=== PATIENT | female | born 1955 | race Caucasian/White ===

== ENCOUNTER → 2016-10-21 | Day surgery (SDC) | payer MEDICAID ==
[~2016-10-21] MED LIST: AEROCHAMBER1 DEV IH; ALBUTEROL-200 PUFFS/ IH; ALBUTEROL2 PUFFS/17 IN; AMOXIL500 MG PO; ANTI-FUNGAL1% TP; ASPIRIN 81MG TA81 MG PO; ASPIRIN325 M1 PO; AZITHROMYCIN250 MG PO; BACTRIM DS 8001 TAB PO; BREO ELLIPTA 21 EACH; CEFDINIR 300MG300 MG; CIPRO 250MG TA250 MG PO; DARVOCET-N 1001 EACH PO; FEOSOL325 MG; FLEXERIL10 MG PO; FUROSEMIDE 40MG40 M1 PO; GABAPENTIN300 MG PO; HYDROCHLOROTH12.5 M1 PO; HYDROCHLOROTHIA25 M1 PO; LIPITOR40 MG PO; LISINOPRIL2.5 MG PO; LOMOTIL 2.5MG.2.5 MG PO; LOPRESSOR 25MG.25 MG FT; MEDROL 4MG TABLE4 MG PO; MELOXICAM7.5 MG PO; METFORMIN 500M500 M1 PO; METOPROLOL SUCC50 M1 PO; MOBIC7.5 MG PO; MOTRIN 600MG.600 MG PO; MUCINEX DM PO; NAPROSYN 500MG500 MG PO; NAPROSYN500 M1 PO; NITROGLYCERIN0.4 MG SL; NITROQUICK0.4 MG SL; OXYBUTYNIN5 MG PO; OXYGEN XX; PHENERGAN 25MG.25 M1 PO; PLAVIX75 MG PO; POTASSIUM CHLO20 ME2 PO; PRILOSEC OTC20 MG PO; PYRIDIUM 200MG200 MG PO; ROBAXIN-750750 MG PO; SOTALOL HCL80 MG PO; SYMBICORT1 AER IH; TRAMADOL 50MG T50 MG PO; ULTRAM50 MG PO; VALIUM 5MG TABLE5 MG PO; VIBRAMYCIN HYC100 MG PO; VOLTAREN75 MG PO; VYTORIN 10 MG-41 TAB PO; XARELTO20 MG; ZESTRIL 5MG TABL5 MG; ZITHROMAX Z-PA250 M2 PO; ZOFRAN ODT4 MG PO; ZOFRAN4 MG PO
[2016-10-21 09:11] VITALS: BP 129/72
[2016-10-21 10:28] LABS: HEMOGLOBIN 9.9 g/dL (12.2-16.2); LYMPH # 6.2 K/mm3 (0.7-4.5)
[2016-10-21 10:39] LABS: BUN 10 mg/dL (7-18)
[2016-10-21 10:40] LABS: GFR (ESTIMATED) 73 ML/MIN (59-)
[2016-10-21 11:10] LABS: NEUTROPHILS 49 % (42-76)
== END ==
LOC: SDC 08:43
PROVIDERS: Pathology Anatomic Pathology & Clinical Pathology
DX: C92.10 Chronic myeloid leukemia, BCR/ABL-positive, not having achieved remission (principal); Z53.8 Procedure and treatment not carried out for other reasons

== ENCOUNTER 2016-11-22 16:46 | Emergency (ER) | payer MEDICAID ==
[~2016-11-22] VITALS: Ht 162.6 cm; Wt 90.7 kg
--- NOTE | 2016-11-22 17:21 | Emergency Room Report ---
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 N Clinical Suspician of Infection? N Mental Status: 1 - Regular (Normal Baseline) Sepsis Risk:Low Sepsis Risk Have you (or family members/close friends) recently traveled outside the [place]? N If Yes, where/when: Have you had exposure to infectious disease within the past month? N TB? Other? Specify: Patient states she feels weak, just not well, "I feel dehydrated", no vomiting or chest pain. Recent dx myeloid leukemia, pt of Dr. Joseph. No SOB. No vomiting. Uses home oxygen PRN. No fever. Feels a little bit hoarse. Having some urinary urgency and frequency. No cough. Takes iron supplement for anemia. No new changes in stool. Reports chronic ankle edema, no new edema, no calf pain or claudication. PCP is Dr. Weinberg. ALLERGIES Coded Allergies: Penicillins (Intermediate, I-RASH 10/20/16) acetaminophen (Intermediate, I-RASH 10/20/16) adhesive tape (Intermediate, I-RASH 10/20/16) digoxin (Intermediate, NA-NAUSEA/VOMITING 10/20/16) hydrocortisone (Intermediate, I-RASH 10/20/16) ciprofloxacin (Mild, NA-NAUSEA/VOMITING 10/20/16) milk (Mild, DIARRHEA 10/20/16) Home Medications Active Scripts Tramadol Hcl (Ultram 50MG) 50 MG PO QID #15 TAB Prov: 04/20/15 Albuterol (Albuterol Inhaler 17GM) 2 PUFFS IN Q4HP #1 INH Prov: 03/06/12 Reported Medications NITROGLYCERIN (Nitrostat) 0.4 MG SL [id number] Device (Oxygen (Concentrator)) 1 UNIT XX UD OXYBUTYNIN CHLORIDE (Oxybutynin 5MG Tab) 5 MG PO BID Atorvastatin Calcium (Atorvastatin) 40 MG PO QHS Device (Oxygen (Concentrator)) 1 UNIT XX UD Diazepam (Valium 5MG) 5 MG PO TID ASPIRIN (Aspirin) 81 MG PO DAILY Fluticasone/Vilanterol (Breo Ellipta 200-25 Mcg INH) Ferrous Sulfate (Feosol) Lisinopril (Zestril 5MG Tablet) Rivaroxaban (Xarelto) CEFDINIR (Cefdinir) Metformin HCl (Metformin) 500 MG PO BID #60 BUDESONIDE/FORMOTEROL FUMARATE (Symbicort 80-4.5 Mcg Inhaler) 1 PUFF IH BID #10 Sotalol Hcl (Sotalol) 80 MG PO BID #60 History Medical History General CAD? No Angina: Yes PR: Yes Hypertension? Yes Hyperlipidemia? Yes CHF? Yes DVT? No PE? No COPD? Yes Asthma? No Anemia? No GERD? No Gastric ulcers? No GI Bleed? No Hernia? Yes Thyroid Problems? No Hypothyroidism? No CVA? Yes Seizures? Yes Diabetes? Yes Insulin Dependent: No Insulin Pump: No Home FSBS? No Renal Insuffiency? No End Stage Renal Disease? No UTI? Yes Stones? No BPH? No GB Disease: Yes Nephritic Syndrome? No Asplenia? No Hepatitis? No Sickle Cell Disease? No Arthritis? Yes Migraines? No Cataracts? No Glaucoma? No MRSA? No HIV? No TB? No Anxiety? No Depression? No Cancer? No More? Yes Additional hx: cml Immunization Hx DT/Tetanus UNKNOWN Flu 01/10/08 Pneumonia 01/10/08 Surgical Hx Previous Surgery?Y GallbladdER FX L FOOT TONSILLECTOMY KARRI,BSO COLONOSCOPY X 3 BLADDER REPAIR Appendix CARDIAC STENT X 1 CARDIAC CATH 2- THAT WAS OKAY POLYP REMOVED FROM COLON Family History Family Hx Diabetes Yes CAD Yes Hypertension Yes Hyperlipidemia No Cancer Yes TB No Social History Smoking Hx Smoker: Current Every Day Smoker Tobacco: Yes Type Cigarettes Packs/day < 1 Pack Alcohol Alcohol: No Review of Systems All Other Systems Reviewed and Negative Constitutional see HPI Physical Exam Vital Signs Vital Signs Date Time Temp Pulse Resp B/P Pulse O2 O2 Flow FiO2 Ox Delivery Rate 11/22 1913 54 16 161/78 98 11/22 1809 57 16 171/84 96 11/22 1649 97.9 59 16 170/81 98 General Appearance normal appearance, WD/WN, no apparent distress Eye Exam - bilateral eye normal exam, bilateral eye PERRL, bilateral eye EOMI Ear, Nose, Throat hearing grossly normal, normal ENT inspection, normal pharynx (OP wet no erythema) Neck normal inspection, non-tender, supple, full range of motion (no meningismus ) Respiratory Status Yes: trachea midline, chest symmetrical, non tender chest. No: respiratory distress, tender on palpation, use of accessory muscles, pain on inspiration, pain on expiration, productive cough, non productive cough. Lung Sounds bilateral: normal breath sounds, lungs clear, decreased breath sounds (hx COPD). 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 No Results/Orders Laboratory Tests 11/22/16 1730: Sodium 141, Potassium 4.0, Chloride 106, Carbon Dioxide 29, BUN 13, Creatinine 0.8, Estimated Creat Clear 107, Estimated GFR (MDRD) 73, Glucose 94, Calcium 8.8 , Total Bilirubin 0.3, AST 13 L, ALT 14, Alkaline Phosphatase 122 H, Troponin I < 0.02, Total Protein 6.9, Albumin 3.5, Globulin 3.4 H, Albumin/Globulin Ratio 1.0 L, WBC 53.1 *H, RBC 4.01 L, Hgb 9.8 L, Hct 32.2 L, MCV 80.2 L, RDW 15.3, Plt Count 335, MPV 8.0, Gran % 82.1 H, Gran # 43.6 H, Total Counted Pending, Lymphocytes % 10.9, Monocytes % 4.2, Eosinophils % 2.9, Basophils % 4.2 H, Neutrophils Pending, Lymphocytes (Manual) Pending, Lymphocytes # 5.8 H, Monocytes # 2.3 H, Eosinophils # 1.5 H, Basophils # 2.2 H, Platelet Estimate Pending, PUBS MCHC 30.6 L, MCH 24.5 L 11/22/16 1645: Urine Color YELLOW, Urine Appearance CLEAR, Urine pH 7.0, Ur Specific Grant <= 1.005, Urine Protein NEGATIVE, Urine Ketones NEGATIVE, Urine Blood NEGATIVE, Urine Nitrate NEGATIVE, Urine Bilirubin NEGATIVE, Urine Urobilinogen 0.2, Ur Leukocyte Esterase 1+ H, Urine Glucose NEGATIVE Orders Procedure Date/time Status CULTURE, THROAT 11/22 1850 Active DIFFERENTIAL-WBC 11/22 1730 Active ELECTROCARDIOGRAM REQUEST 11/22 170 Active CHEST(2 VIEWS-NOT PORTABLE) 11/22 170 Active TROPONIN I 11/22 170 Complete STREP SCREEN THROAT 11/22 170 Complete CBC WITH AUTO DIFF 11/22 170 Active CHEM 12 PROFILE 11/22 170 Complete URINALYSIS/COMPLETE 11/22 1653 Complete 12 LEAD EKG-ANA MARIA (INITIAL) 11/22 UNK Active CM/EKG CM/EKG EKG rate, NSR, rhythm, no evid. of ischemic chgs, no ectopy, normal QRS, normal KS, normal EKG Departure Departure Time of Disposition 1918 Disposition DC Home or Self Care(routine) Clinical Impression Primary Impression: Malaise Secondary Impressions: UTI (urinary tract infection) Qualifiers: Urinary tract infection type: acute cystitis Hematuria presence: without hematuria Qualified Code: N30.00 - Acute cystitis without hematuria Condition STABLE Referrals Ramin Weinberg MD (Family) Patient Instructions Urinary Tract Infection Additional Instructions Macrobid, see Dr. Weinberg in one week for recheck, sooner if not improving Discharge Counseling Counseled pt/family regarding diagnosis, test results, medications/RX, home care, follow up needs Prescriptions Current Visit Scripts NITROFURANTOIN MONOHYD/M-CRYST (Macrobid 100 MG Capsule) 100 MG PO BID #14 CAP ED Critical Care Critical Care No at 1923
[2016-11-22 17:53] LABS: HEMOGLOBIN 9.8 g/dL (12.2-16.2); LYMPH # 5.8 K/mm3 (0.7-4.5); LYMPH % 10.9 % (10-50.0)
[2016-11-22 18:03] LABS: BUN 13 mg/dL (7-18)
[2016-11-22 18:10] LABS: GFR (ESTIMATED) 73 ML/MIN (59-)
[2016-11-22 19:11] LABS: URINE BILIRUBIN - DIPSTICK NEGATIVE (NEG); URINE BLOOD NEGATIVE (NEG)
[2016-11-22 19:36] LABS: NEUTROPHILS 67 % (42-76)
[2016-11-22 19:54] VITALS: BP 161/78
--- NOTE | 2016-11-22 23:18 | RADIOLOGY REPORT PS360 ---
CHEST(2 VIEWS-NOT PORTABLE) HISTORY: malaise ORDERING PHYSICIAN: Celina Us MD PATIENT AGE: 61 years COMPARISON: 06/10/2016 FINDINGS: There is mild cardiomegaly without failure. Calcified granulomas present in the left midlung. Lungs otherwise clear. No acute bony anomalies. IMPRESSION: Mild cardiomegaly otherwise negative
--- OUTSIDE RECORDS SUMMARY | 2016-12-15 05:28 | External Medical Summary Rpt ---
Author Author [facility] Organization [facility] Address Unknown Phone Unavailable Care Team Providers Care Community Midwife Name Role Phone BIENVENIDO STRICKLAND PCP [phone] Encounter [facility] [id number] Date(s): 06/16/16 - 07/07/16 [facility] [address] [place] [address]- Discharge Disposition: OP Self Care or Home Attending Physician: MAGALI RAMIREZ MD-CAR Admitting Physician: MAGALI RAMIREZ MD-CAR Referring Physician: MAGALI RAMIREZ MD-CAR Reason for Visit PAROXYSMAL ATRIAL FIBRILLATION Vital Signs Most recent 1 2 3 to oldest [Reference Range]: Temperature Temporal artery Source scanning (07/07/16 7:16 AM) Temperature Fahrenheit Mode (07/07/16 7:16 AM) Temperature, 98.0 Deg F Fahrenheit (07/07/16 7:16 AM) [96.8-99.7 Deg F] Clinical 36.7 Deg C Temperature, (07/07/16 7:16 AM) C Heart Rate 64 bpm 66 bpm 68 bpm Monitored (07/07/16 10:30 AM) (07/07/16 10:15 AM) (07/07/16 10:00 AM) [60-100 bpm] Respiratory 24 Breaths/Min 37 Breaths/Min 32 Breaths/Min Rate [14-20 *HI* *HI* *HI* Breaths/Min] (07/07/16 10:30 AM) (07/07/16 10:15 AM) (07/07/16 10:00 AM) Blood 110/69 mmHg 110/69 mmHg 114/73 mmHg Pressure (07/07/16 10:30 AM) (07/07/16 10:15 AM) (07/07/16 10:00 AM) [90-140/60-9 0 mmHg] Mean 92 92 101 Arterial (07/07/16 10:30 AM) (07/07/16 10:15 AM) (07/07/16 10:00 AM) Pressure (MAP)-BMDI Oxygen 100 % 100 % 100 % Saturation (07/07/16 10:30 AM) (07/07/16 10:15 AM) (07/07/16 10:00 AM) [94-100 %] Height Measured Source (07/07/16 7:12 AM) Height Entry Sharkey Format (07/07/16 7:12 AM) Height/Lengt 5 ft h, DUTCH (07/07/16 7:12 AM) (ft) Height/Lengt 4 Inch h DUTCH (07/07/16 7:12 AM) CLINICALHEIG 162.56 cm HT (07/07/16 7:12 AM) Weight Standing scale Source (07/07/16 7:12 AM) Weight Entry Sharkey Format (07/07/16 7:12 AM) Weight 217 lb Ukrainian lb (07/07/16 7:12 AM) CLINICALWEIG 98.64 kg HT (07/07/16 7:12 AM) Body Surface 2.03 m2 Area (BSA) (07/07/16 7:12 AM) Body Mass 37.3 kg/m2 Index *HI* [19.0-24.0 (07/07/16 7:12 AM) kg/m2] [place] Body 54 kg Weight (07/07/16 7:12 AM) Problem List Condition Effective Status Health Informant Dates Status Acute Resolved inferior myocardial infarction(C onfirmed) AF (atrial Active patient fibrillation )(Confirmed) Anemia(Confi Active patient rmed) Angina(Confi Active patient rmed) angina(Confi Active rmed) Arthritis(Co Active patient nfirmed) Atrial Active patient tachycardia( Confirmed) Back Active patient pain(Confirm ed) Bronchitis(C Active patient onfirmed) COPD(Confirm Active ed) CVA Resolved (cerebral vascular accident)(Co nfirmed) Diabetes Active patient mellitus type II(Confirmed ) Falls(Confir Active med) Ankle Resolved patient fracture, left(Confirm ed) Stress Active incontinence (Confirmed) GERD - Active patient Gastro-esoph ageal reflux disease(Conf irmed) History of Active IBS(Confirme d) History of Resolved patient tonsillectom y(Confirmed) Heart Active patient failure(Conf irmed) Heart Active murmur(Confi rmed) Elevated Active troponin I level(Confir med) Hx of Resolved patient cholecystect aron(Confirme d) HLD Active (hyperlipide nanette)(Confirm ed) HTN Active (hypertensio n)(Confirmed ) Incontinence Active patient (Confirmed) Irritable Active patient bowel syndrome(Con firmed) COPD, Active patient moderate(Con firmed) Neck Active pain(Confirm ed) Peripheral Active patient vascular disease(Conf irmed) Restless Active legs syndrome (RLS)(Confir med) Apnea, Active sleep(Confir med)1 Stented Active patient coronary artery(Confi rmed) Syncope(Conf Active irmed) 1no cpap Allergies, Adverse Reactions, Alerts Substance Reaction Severity Status Augmentin rash Active ciprofloxacin hives Active digoxin Sensitivity Active Yellow Vision Milk Products diarrhea Active vomit Tape hives Active Tylenol Extra hives Active Strength Medications albuterol (Ventolin HFA 90 mcg/inh inhalation aerosol)2 Puff, Inhalation, Four Times A Day, Refills: 0 aspirin (aspirin 81 mg oral tablet, chewable) 1 Tab, Oral, Every Day, Refills: 11 Ordering provider: YUE MENDOZA APRN atorvastatin (Lipitor 80 mg oral tablet) 1 Tab, Oral, Every Day, Refills: 11 Ordering provider: YUE MENDOZA APRN budesonide-formoterol (Symbicort 80 mcg-4.5 mcg/inh inhalation aerosol)2 Puff, Inhalation, Two Times A Day, Refills: 0 diazepam (diazepam 5 mg oral tablet)1 Tab, Oral, Three Times A Day, As Needed, for anxiety, Refills: 0 furosemide (furosemide 40 mg oral tablet) Oral, Every Day, Refills: 0 gabapentin (gabapentin 300 mg oral capsule) 1 Cap, Oral, Two Times A Day, Refills: 0 lisinopril (lisinopril 2.5 mg oral tablet) 2 Tab, Oral, Every Day, Refills: 0 metformin (metformin 500 mg oral tablet) 1 Tab, Oral, Two Times A Day, Refills: 0 nitroglycerin (Nitrostat 0.4 mg sublingual tablet)1 Tab, SubLINgual , every 5 minutes, As Needed, Chest Pain, Refills: 3Ordering provider: YUE MENDOZA APRN omeprazole (PriLOSEC OTC 20 mg oral delayed release tablet)1 Tab, Oral, Every Day, Refills: 0 oxybutynin (oxybutynin 5 mg oral tablet)1 Tab, Oral, Two Times A Day, As Needed, for urinary discomfort, Refills: 0 potassium chloride (Klor-Con M20) 20 mEq, Oral, Every Day, Refills: 0 rivaroxaban (Xarelto 20 mg oral tablet) 1 Tab, Oral, Every Evening, Refills: 0 sotalol (sotalol 80 mg oral tablet) 1 Tab, Oral, Two Times A Day, Refills: 0 tramadol (tramadol 50 mg oral tablet) 1 Tab, Oral, Three Times A Day, Refills: 0 Results GENERAL CHEMISTRY Most recent 1 to oldest [Reference Range]: Sodium Level 141 mmol/L [136-146 (07/07/16 7:05 AM) mmol/L] Potassium 3.6 mmol/L Level (07/07/16 7:05 AM) [3.5-5.1 mmol/L] Chloride 108 mmol/L Level (07/07/16 7:05 AM) [102-112 mmol/L] Carbon 26 mmol/L Dioxide (07/07/16 7:05 AM) Level [21-32 mmol/L] Anion Gap 11 [9-20] (07/07/16 7:05 AM) Glucose 107 mg/dL Level *HI* [74-106 (07/07/16 7:05 AM) mg/dL] Blood Urea 12 mg/dL Nitrogen (07/07/16 7:05 AM) [7-22 mg/dL] Creatinine 0.80 mg/dL Level (07/07/16 7:05 AM) [0.55-1.02 mg/dL] eGFR 89 mL/min/1.73m2 [>=60 (07/07/16 7:05 AM) mL/min/1.73m 2] eGFR 73 mL/min/1.73m2 NonAfrican (07/07/16 7:05 AM) [>=60 mL/min/1.73m 2] Bun/Creatini 15.0 ne (07/07/16 7:05 AM) [8.0-20.0] Calcium 8.4 mg/dL Level *LOW* [8.5-10.1 (07/07/16 7:05 AM) mg/dL] Protein 6.6 Gram/dL Total (07/07/16 7:05 AM) [6.4-8.2 Gram/dL] Albumin 3.5 Gram/dL Level (07/07/16 7:05 AM) [3.4-5.0 Gram/dL] Globulin 3.1 Gram/dL [1.5-4.5 (07/07/16 7:05 AM) Gram/dL] A/G Ratio 1.1 [1.1-2.5] (07/07/16 7:05 AM) Bilirubin 0.2 mg/dL Total (07/07/16 7:05 AM) [0.2-1.3 mg/dL] Alk Phos 125 Units/Liter [27-136 (07/07/16 7:05 AM) Units/Liter] AST [5-37 8 Units/Liter Units/Liter] (07/07/16 7:05 AM) ALT [12-78 16 Units/Liter Units/Liter] (07/07/16 7:05 AM) Magnesium 2.0 mg/dL Level (07/07/16 7:05 AM) [1.5-2.4 mg/dL] CARDIAC SPECIFIC MARKERS Most recent 1 to oldest [Reference Range]: ProBNP 376 pg/mL [0-125 *HI* pg/mL] (07/07/16 7:05 AM) HEMATOLOGY Most recent 1 to oldest [Reference Range]: WBC 25.7 K/uL [4.0-10.0 *HI* K/uL] (07/07/16 7:05 AM) RBC 4.30 Million/uL [3.93-5.22 (07/07/16 7:05 AM) Million/uL] Hgb 10.3 g/dL [11.2-15.7 *LOW* g/dL] (07/07/16 7:05 AM) Hct 34.4 % [34.1-44.9 (07/07/16 7:05 AM) %] MCV 80.0 fL [79.0-94.8 (07/07/16 7:05 AM) fL] MCH 24.0 pg [25.6-32.2 *LOW* pg] (07/07/16 7:05 AM) MCHC 29.9 Gram/dL [32.2-36.5 *LOW* Gram/dL] (07/07/16 7:05 AM) Platelet 268 K/uL Count (07/07/16 7:05 AM) [163-369 K/uL] MPV 11.3 fL [9.4-12.4 (07/07/16 7:05 AM) fL] RDW 14.8 % [11.6-14.4 *HI* %] (07/07/16 7:05 AM) Slide Review No (07/07/16 7:05 AM) ENDOCRINOLOGY Most recent 1 to oldest [Reference Range]: TSH 0.023 mcInt Units/mL [0.358-3.740 *LOW* mcInt (07/07/16 7:05 AM) Units/mL] Immunizations No data available for this section Procedures Procedure Date Related Body Site Diagnosis left ankle fracture repair Social History Social History Response Type Smoking Status Current every day smoker Assessment and Plan No data available for this section Hospital Discharge Instructions Patient EducationElectrical Cardioversion, Care After General Anesthesia, Adult, Care After
--- OUTSIDE RECORDS SUMMARY | 2016-12-15 05:28 | External Medical Summary Rpt ---
Author Author [facility] Organization [facility] Address Unknown Phone Unavailable Care Team Providers Care Meal Cook Name Role Phone BIENVENIDO STRICKLAND PCP [phone] Encounter [facility] [id number] Date(s): 06/16/16 - 07/07/16 [facility] [address] [place] [address]- Discharge Disposition: OP Self Care or Home [...] Measured Source (07/07/16 7:12 AM) Height Entry Howard Format (07/07/16 7:12 AM) Height/Lengt 5 ft h, BRITISH (07/07/16 7:12 AM) (ft) Height/Lengt 4 Inch h BRITISH (07/07/16 7:12 AM) CLINICALHEIG 162.56 cm HT (07/07/16 7:12 AM) Weight Standing scale Source (07/07/16 7:12 AM) Weight Entry Howard Format (07/07/16 7:12 AM) Weight 217 lb Kiswahili lb (07/07/16 7:12 AM) CLINICALWEIG 98.64 kg HT (07/07/16 7:12 AM) Body Surface 2.03 m2 Area (BSA) (07/07/16 7:12 AM) Body Mass 37.3 kg/m2 Index *HI* [19.0-24.0 (07/07/16 7:12 AM) kg/m2] [place] Body 54 kg Weight (07/07/16 7:12 AM) [...]
--- OUTSIDE RECORDS SUMMARY | 2016-12-15 05:48 | External Medical Summary Rpt ---
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 Drug Allergy Food Allergy Propensity to adverse reactions to drug Adverse Reaction to Substance Substance Reaction Severity TAPE I-RASH Intermediate Amoxicillin I-RASH Intermediate Acetaminophen I-RASH Intermediate Hydrocortisone I-RASH Intermediate Ciprofloxacin I-RASH Intermediate MILK 'DOESN'T AGREE WITH Unknown ME' TAPE I-RASH Intermediate Clavulanic Acid I-RASH Intermediate MILK 'DOESN'T AGREE WITH Unknown ME' Digoxin 'MAKES HEART HURT Intermediate WORSE'-speeds up heart rate Clinical Alert Notifications Alert Asthma: ICS non-compliance with h/o of SA beta agonist Asthma: no influenza vaccine in the last 365 days Diabetes: no A1C in the last 6 months Diabetes: no eye exam in the last 365 days Diabetes: no influenza vaccine in the last 365 days Diabetes: no lipid panel in the last 365 days Diabetes: no urine protein screening in the last 365 days Medications Na ND Rx Da Fi Fi Am Da Di Ph RX Ph St me C No te ll ll ou ys ag ar # ys at rm s nt no ma ic us Or Da si cy ia de te s n re d IM 00 09 10 30 30 00 CL Ac AT 09 -1 -0 .0 00 IN ti IN 37 3- 6- 00 00 IC ve IB 63 20 20 44 05 17 17 21 PH ME 6 67 AR SY MA LA CY TE 40 0 MG TA B FE 57 09 10 40 20 00 CL Ac RR 66 -0 -0 .0 00 IN ti OU 40 8- 6- 00 00 IC ve S 07 20 20 44 TURNER 11 17 17 20 PH LF 0 05 AR AT MA E CY 32 5 MG TA BL ET ME 67 09 10 60 30 00 CL Ac TF 87 -1 -0 .0 00 IN ti OR 70 1- 6- 00 00 IC ve MO 56 20 20 43 N 11 17 17 47 PH HC 0 58 AR L MA 50 CY 0 MG TA BL ET LI 68 09 10 30 30 00 CL Ac SI 00 -1 -0 .0 00 IN ti NO 10 1- 6- 00 00 IC ve KS 26 20 20 43 IL 70 17 17 54 PH 5 8 78 AR MA MG CY TA BL ET AT 60 09 10 30 30 00 CL Ac OR 50 -1 -0 .0 00 IN ti VA 52 1- 6- [address] 67 20 20 43 AT 10 17 17 49 PH IN 8 99 AR MA 80 CY MG TA BL ET SO 00 09 10 60 30 00 CL Ac TA 09 -1 -0 .0 00 IN ti LO 31 1- 6- 00 00 IC ve L 06 20 20 43 80 10 17 17 21 PH 1 62 AR MG MA CY TA BL ET XA 50 09 10 30 30 00 CL Ac RE 45 -1 -0 .0 00 IN ti LT 80 1- 6- 00 00 IC ve O 57 20 20 42 20 93 17 17 78 PH 0 87 AR MG MA CY TA BL ET VE 00 09 10 18 25 00 CL Ac NT 17 -1 -0 .0 00 IN ti OL 30 1- 6- 00 00 IC ve IN 68 20 20 43 22 17 17 20 PH HF 0 65 AR A MA 90 CY MC G IN CHO LE R OM 68 09 10 60 30 00 CL Ac EP 46 -1 -0 .0 00 IN ti RA 20 1- 6- 00 00 IC ve ZO 39 20 20 42 LE 60 17 17 97 PH [address] MA CY 20 MG CA PS UL E CH 37 09 10 30 30 00 CL Ac IL 20 -1 -0 .0 00 IN ti D 50 1- 6- 00 00 IC ve 46 20 20 41 PI 76 17 17 56 PH RI 8 75 AR N MA 81 CY MG CH EW TA B PO 68 09 10 30 30 00 CL Ac TA 00 -1 -0 .0 00 IN ti SS 10 1- 6- 00 00 IC ve IU 23 20 20 43 M 50 17 17 47 PH CL 8 59 AR MA ER CY 20 ME Q TA BL ET FU 69 09 10 60 30 00 CL Ac RO 31 -1 -0 .0 00 IN ti SE 50 1- 6- 00 00 IC ve MO 11 20 20 43 DE 71 17 17 47 PH 0 57 AR 40 MA CY MG TA BL ET OX 00 09 10 60 30 00 CL Ac YB 60 -1 -0 .0 00 IN ti UT 34 1- 6- 00 00 IC ve YN 97 20 20 43 IN 52 17 17 47 PH 5 1 60 AR MA MG CY TA BL ET BR 00 09 10 60 30 00 CL Ac EO 17 -1 -0 .0 00 IN ti 30 1- 6- 00 00 IC ve EL 85 20 20 43 LI 91 17 17 28 PH PT 0 44 AR A MA 10 CY 0- 25 MC G IN H DI 51 09 09 90 30 00 CL Ac AZ 86 -0 -2 .0 00 IN ti EP 20 5- 9- 00 00 IC ve AM 06 20 20 43 5 31 17 17 75 PH 0 57 AR MG MA CY TA BL ET GA 69 08 09 30 30 00 CL Ac BA 09 -1 -1 .0 00 IN ti PE 70 9- 5- 00 00 IC ve NT 81 20 20 42 IN 41 17 17 65 PH 2 37 AR 30 MA 0 CY MG CA PS UL E VE 00 08 09 18 25 00 CL Ac NT 17 -1 -1 .0 00 IN ti OL 30 7- 5- 00 00 IC ve IN 68 20 20 43 22 17 17 20 PH HF 0 65 AR A MA 90 CY MC G IN CHO LE R OM 60 08 09 60 30 00 CL Ac EP 50 -1 -1 .0 00 IN ti RA 50 7- 5- 00 00 IC ve ZO 06 20 20 42 LE 50 17 17 97 PH [address] MA CY 20 MG CA PS UL E OX 50 08 09 60 30 00 CL Ac YB 11 -1 -0 .0 00 IN ti UT 10 6- 8- 00 00 IC ve YN 45 20 20 43 IN 60 17 17 47 PH 5 2 60 AR MA MG CY TA BL ET XA 50 08 09 30 30 00 CL Ac RE 45 -1 -0 .0 00 IN ti LT 80 6- 8- 00 00 IC ve O 57 20 20 42 20 93 17 17 78 PH 0 87 AR MG MA CY TA BL ET CH 37 08 09 30 30 00 CL Ac IL 20 -1 -0 .0 00 IN ti D 50 6- 8- 00 00 IC ve 46 20 20 41 PI 76 17 17 56 PH RI 8 75 AR N MA 81 CY MG CH EW TA B FU 69 08 09 60 30 00 CL Ac RO 31 -1 -0 .0 00 IN ti SE 50 6- 8- 00 00 IC ve MO 11 20 20 43 DE 71 17 17 47 PH 0 57 AR 40 MA CY MG TA BL ET FE 57 08 09 40 20 00 CL Ac RR 66 -1 -0 .0 00 IN ti OU 40 6- 8- 00 00 IC ve S 07 20 20 42 TURNER 11 17 17 42 PH LF 0 66 AR AT MA E CY 32 5 MG TA BL ET PO 00 08 09 30 30 00 CL Ac TA 78 -1 -0 .0 00 IN ti SS 15 6- 8- 00 00 IC ve IU 72 20 20 43 M 01 17 17 47 PH CL 0 59 AR MA ER CY 20 ME Q TA BL ET SO 00 08 09 60 30 00 CL Ac TA 09 -1 -0 .0 00 IN ti LO 31 6- 8- 00 00 IC ve L 06 20 20 43 80 10 17 17 21 PH 1 62 AR MG MA CY TA BL ET BR 00 08 09 60 30 00 CL Ac EO 17 -1 -0 .0 00 IN ti 30 6- 8- 00 00 IC ve EL 85 20 20 43 LI 91 17 17 28 PH PT 0 44 AR A MA 10 CY 0- 25 MC G IN H AT 55 08 09 30 30 00 CL Ac OR 11 -1 -0 .0 00 IN ti VA 10 6- 8- [address] 12 20 20 43 AT 40 17 17 49 PH IN 5 99 AR MA 80 CY MG TA BL ET LI 68 08 09 30 30 00 CL Ac SI 18 -1 -0 .0 00 IN ti NO 00 6- 8- 00 00 IC ve KS 51 20 20 43 IL 30 17 17 54 PH 5 3 78 AR MA MG CY TA BL ET ME 53 08 09 60 30 00 CL Ac TF 74 -1 -0 .0 00 IN ti OR 60 6- 8- 00 00 IC ve MO 21 20 20 43 N 81 17 17 47 PH HC 0 58 AR L MA 50 CY 0 MG TA BL ET DI 51 08 09 90 30 00 CL Ac AZ 86 -0 -0 .0 00 IN ti EP 20 3- 1- 00 00 IC ve AM 06 20 20 43 5 31 17 17 75 PH 0 57 AR MG MA CY TA BL ET GA 69 07 08 30 30 00 CL Ac BA 09 -2 -1 .0 00 IN ti PE 70 2- 8- 00 00 IC ve NT 81 20 20 42 IN 41 17 17 65 PH 2 37 AR 30 MA 0 CY MG CA PS UL E TR 00 07 08 45 10 00 CL Ac IA 60 -2 -1 .0 00 IN ti MC 37 0- 8- 00 00 IC ve IN 86 20 20 43 OL 17 17 17 49 PH ON 4 90 AR E MA 0. CY 02 5% CR EA M CH 37 07 08 30 30 00 CL Ac IL 20 -2 -1 .0 00 IN ti D 50 0- 8- 00 00 IC ve 46 20 20 41 PI 76 17 17 56 PH RI 8 75 AR N MA 81 CY MG CH EW TA B OX 00 07 08 60 30 00 CL Ac YB 83 -2 -1 .0 00 IN ti UT 20 0- 8- 00 00 IC ve YN 03 20 20 43 IN 81 17 17 47 PH 5 0 60 AR MA MG CY TA BL ET PO 00 07 08 30 30 00 CL Ac TA 78 -2 -1 .0 00 IN ti SS 15 0- 8- 00 00 IC ve IU 72 20 20 43 M 01 17 17 47 PH CL 0 59 AR MA ER CY 20 ME Q TA BL ET ME 53 07 08 60 30 00 CL Ac TF 74 -2 -1 .0 00 IN ti OR 60 0- 8- 00 00 IC ve MO 21 20 20 43 N 81 17 17 47 PH HC 0 58 AR L MA 50 CY 0 MG TA BL ET FU 00 07 08 60 30 00 CL Ac RO 37 -2 -1 .0 00 IN ti SE 80 0- 8- 00 00 IC ve MO 21 20 20 43 DE 61 17 17 47 PH 0 57 AR 40 MA CY MG TA BL ET FE 57 07 08 60 30 00 CL Ac RR 66 -2 -1 .0 00 IN ti OU 40 0- 8- 00 00 IC ve S 07 20 20 42 TURNER 11 17 17 42 PH LF 0 66 AR AT MA E CY 32 5 MG TA BL ET SO 00 07 08 60 30 00 CL Ac TA 09 -2 -1 .0 00 IN ti LO 31 0- 8- 00 00 IC ve L 06 20 20 43 80 10 17 17 21 PH 1 62 AR MG MA CY TA BL ET XA 50 07 08 30 30 00 CL Ac RE 45 -2 -1 .0 00 IN ti LT 80 0- 8- 00 00 IC ve O 57 20 20 42 20 93 17 17 78 PH 0 87 AR MG MA CY TA BL ET OM 60 07 08 60 30 00 CL Ac EP 50 -2 -1 .0 00 IN ti RA 50 0- 8- 00 00 IC ve ZO 06 20 20 42 LE 50 17 17 97 PH [address] MA CY 20 MG CA PS UL E LI 68 07 08 30 30 00 CL Ac SI 18 -2 -1 .0 00 IN ti NO 00 0- 8- 00 00 IC ve KS 51 20 20 43 IL 30 17 17 54 PH 5 3 78 AR MA MG CY TA BL ET AT 62 07 08 30 30 00 CL Ac OR 17 -2 -1 .0 00 IN ti VA 50 0- 8- [address] 89 20 20 43 AT 74 17 17 49 PH IN 6 99 AR MA 80 CY MG TA BL ET BR 00 07 08 60 30 00 CL Ac EO 17 -2 -1 .0 00 IN ti 30 0- 8- 00 00 IC ve EL 85 20 20 43 LI 91 17 17 28 PH PT 0 44 AR A MA 10 CY 0- 25 MC G IN H VE 00 07 08 18 25 00 CL Ac NT 17 -1 -0 .0 00 IN ti OL 30 1- 4- 00 00 IC ve IN 68 20 20 43 22 17 17 49 PH HF 0 76 AR A MA 90 CY MC G IN CHO LE R CE 65 07 08 20 10 00 CL Ac FD 86 -0 -0 .0 00 IN ti IN 20 7- 4- 00 00 IC ve IR 17 20 20 43 76 17 17 61 PH 30 0 19 AR 0 MA MG CY CA PS UL E TR 00 07 08 45 7 00 CL Ac IA 60 -0 -0 .0 00 IN ti MC 37 7- 4- 00 00 IC ve IN 86 20 20 43 OL 27 17 17 61 PH ON 4 18 AR E MA 0. CY 1% CR EA M OX 00 06 07 60 30 00 CL Ac YB 83 -2 -2 .0 00 IN ti UT 20 2- 1- 00 00 IC ve YN 03 20 20 43 IN 81 17 17 47 PH 5 0 60 AR MA MG CY TA BL ET PO 00 06 07 30 30 00 CL Ac TA 78 -2 -2 .0 00 IN ti SS 15 2- 1- 00 00 IC ve IU 72 20 20 43 M 01 17 17 47 PH CL 0 59 AR MA ER CY 20 ME Q TA BL ET ME 53 06 07 60 30 00 CL Ac TF 74 -2 -2 .0 00 IN ti OR 60 2- 1- 00 00 IC ve MO 21 20 20 43 N 81 17 17 47 PH HC 0 58 AR L MA 50 CY 0 MG TA BL ET FU 00 06 07 60 30 00 CL Ac RO 37 -2 -2 .0 00 IN ti SE 80 2- 1- 00 00 IC ve MO 21 20 20 43 DE 61 17 17 47 PH 0 57 AR 40 MA CY MG TA BL ET SO 00 06 07 60 30 00 CL Ac TA 09 -2 -2 .0 00 IN ti LO 31 2- 1- 00 00 IC ve L 06 20 20 43 80 10 17 17 21 PH 1 62 AR MG MA CY TA BL ET GA 67 06 07 30 30 00 CL Ac BA 87 -2 -2 .0 00 IN ti PE 70 2- 1- 00 00 IC ve NT 22 20 20 42 IN 30 17 17 65 PH 5 37 AR 30 MA 0 CY MG CA PS UL E OM 60 06 07 60 30 00 CL Ac EP 50 -2 -2 .0 00 IN ti RA 50 2- 1- 00 00 IC ve ZO 06 20 20 42 LE 50 17 17 97 PH [address] MA CY 20 MG CA PS UL E FE 57 06 07 60 30 00 CL Ac RR 66 -2 -2 .0 00 IN ti OU 40 2- 1- 00 00 IC ve S 07 20 20 42 TURNER 11 17 17 42 PH LF 0 66 AR AT MA E CY 32 5 MG TA BL ET VE 00 06 07 18 25 00 CL Ac NT 17 -2 -2 .0 00 IN ti OL 30 2- 1- 00 00 IC ve IN 68 20 20 43 22 17 17 20 PH HF 0 65 AR A MA 90 CY MC G IN CHO LE R LI 68 06 07 30 30 00 CL Ac SI 18 -2 -2 .0 00 IN ti NO 00 2- 1- 00 00 IC ve KS 51 20 20 42 IL 30 17 17 98 PH 5 3 30 AR MA MG CY TA BL ET CH 37 06 07 30 30 00 CL Ac IL 20 -2 -2 .0 00 IN ti D 50 2- 1- 00 00 IC ve 46 20 20 41 PI 76 17 17 56 PH RI 8 75 AR N MA 81 CY MG CH EW TA B XA 50 06 07 30 30 00 CL Ac RE 45 -2 -2 .0 00 IN ti LT 80 2- 1- 00 00 IC ve O 57 20 20 42 20 93 17 17 78 PH 0 87 AR MG MA CY TA BL ET DI 51 06 07 90 30 00 CL Ac AZ 86 -2 -2 .0 00 IN ti EP 20 6- 1- 00 00 IC ve AM 06 20 20 42 5 31 17 17 43 PH 0 05 AR MG MA CY TA BL ET TR 00 06 07 45 10 00 CL Ac IA 60 -2 -2 .0 00 IN ti MC 37 6- 1- 00 00 IC ve IN 86 20 20 43 OL 17 17 17 49 PH ON 4 90 AR E MA 0. CY 02 5% CR EA M AT 62 06 07 30 30 00 CL Ac OR 17 -2 -2 .0 00 IN ti VA 50 6- 1- [address] 89 20 20 43 AT 74 17 17 49 PH IN 1 99 AR MA 80 CY MG TA BL ET BR 00 06 07 60 30 00 CL Ac EO 17 -2 -2 .0 00 IN ti 30 6- 1- 00 00 IC ve EL 85 20 20 43 LI 91 17 17 28 PH PT 0 44 AR A MA 10 CY 0- 25 MC G IN H TR 00 06 07 45 10 00 CL Ac IA 60 -1 -0 .0 00 IN ti MC 37 0- 7- 00 00 IC ve IN 86 20 20 43 OL 17 17 17 35 PH ON 4 72 AR E MA 0. CY 02 5% CR EA M BR 00 06 06 60 30 00 CL Ac EO 17 -0 -3 .0 00 IN ti 30 2- 0- 00 00 IC ve EL 85 20 20 43 LI 91 17 17 28 PH PT 0 44 AR A MA 10 CY 0- 25 MC G IN H SO 00 05 06 60 30 00 CL Ac TA 09 -2 -2 .0 00 IN ti LO 31 6- 3- 00 00 IC ve L 06 20 20 43 80 10 17 17 21 PH 1 62 AR MG MA CY TA BL ET OX 00 05 06 60 30 00 CL Ac YB 83 -2 -2 .0 00 IN ti UT 20 5- 3- 00 00 IC ve YN 03 20 20 41 IN 81 17 17 79 PH 5 0 11 AR MA MG CY TA BL ET FE 57 05 06 60 30 00 CL Ac RR 66 -2 -2 .0 00 IN ti OU 40 5- 3- 00 00 IC ve S 07 20 20 42 TURNER 11 17 17 42 PH LF 0 66 AR AT MA E CY 32 5 MG TA BL ET OM 60 05 06 60 30 00 CL Ac EP 50 -2 -2 .0 00 IN ti RA 50 5- 3- 00 00 IC ve ZO 06 20 20 42 LE 50 17 17 97 PH [address] MA CY 20 MG CA PS UL E XA 50 05 06 30 30 00 CL Ac RE 45 -2 -2 .0 00 IN ti LT 80 5- 3- 00 00 IC ve O 57 20 20 42 20 93 17 17 78 PH 0 87 AR MG MA CY TA BL ET PO 62 05 06 30 30 00 CL Ac TA 03 -2 -2 .0 00 IN ti SS 70 5- 3- 00 00 IC ve IU 99 20 20 41 M 90 17 17 79 PH CL 5 20 AR MA ER CY 20 ME Q TA BL ET ME 53 05 06 60 30 00 CL Ac TF 74 -2 -2 .0 00 IN ti OR 60 5- 3- 00 00 IC ve MO 21 20 20 41 N 81 17 17 79 PH HC 0 18 AR L MA 50 CY 0 MG TA BL ET FU 69 05 06 60 30 00 CL Ac RO 31 -2 -2 .0 00 IN ti SE 50 5- 3- 00 00 IC ve MO 11 20 20 41 DE 71 17 17 79 PH 0 17 AR 40 MA CY MG TA BL ET LI 68 05 06 30 30 00 CL Ac SI 18 -2 -2 .0 00 IN ti NO 00 5- 3- 00 00 IC ve KS 51 20 20 42 IL 30 17 17 98 PH 5 3 30 AR MA MG CY TA BL ET CH 37 05 06 30 30 00 CL Ac IL 20 -2 -2 .0 00 IN ti D 50 5- 3- 00 00 IC ve 46 20 20 41 PI 76 17 17 56 PH RI 8 75 AR N MA 81 CY MG CH EW TA B GA 67 05 06 30 30 00 CL Ac BA 87 -3 -2 .0 00 IN ti PE 70 0- 3- 00 00 IC ve NT 22 20 20 42 IN 30 17 17 65 PH 5 37 AR 30 MA 0 CY MG CA PS UL E DI 51 05 06 90 30 00 CL Ac AZ 86 -3 -2 .0 00 IN ti EP 20 0- 3- 00 00 IC ve AM 06 20 20 42 5 31 17 17 43 PH 0 05 AR MG MA CY TA BL ET VE 00 05 06 18 25 00 CL Ac NT 17 -2 -2 .0 00 IN ti OL 30 5- 3- 00 00 IC ve IN 68 20 20 43 22 17 17 20 PH HF 0 65 AR A MA 90 CY MC G IN CHO LE R CH 37 05 05 30 30 00 CL Ac IL 20 -0 -2 .0 00 IN ti D 50 1- 6- 00 00 IC ve 46 20 20 41 PI 76 17 17 56 PH RI 8 75 AR N MA 81 CY MG CH EW TA B FE 57 05 05 60 30 00 CL Ac RR 66 -0 -2 .0 00 IN ti OU 40 1- 6- 00 00 IC ve S 07 20 20 42 TURNER 11 17 17 42 PH LF 0 66 AR AT MA E CY 32 5 MG TA BL ET DI 51 05 05 90 30 00 CL Ac AZ 86 -0 -2 .0 00 IN ti EP 20 1- 6- 00 00 IC ve AM 06 20 20 42 5 31 17 17 43 PH 0 05 AR MG MA CY TA BL ET GA 42 05 05 30 30 00 CL Ac BA 58 -0 -2 .0 00 IN ti PE 20 1- 6- 00 00 IC ve NT 11 20 20 42 IN 51 17 17 65 PH 8 37 AR 30 MA 0 CY MG CA PS UL E AT 60 05 05 30 30 00 CL Ac OR 50 -0 -2 .0 00 IN ti VA 52 1- 6- [address] 67 20 20 41 AT 10 17 17 04 PH IN 9 26 AR MA 80 CY MG TA BL ET FU 69 05 05 60 30 00 CL Ac RO 31 -0 -2 .0 00 IN ti SE 50 1- 6- 00 00 IC ve MO 11 20 20 41 DE 71 17 17 79 PH 0 17 AR 40 MA CY MG TA BL ET ME 53 05 05 60 30 00 CL Ac TF 74 -0 -2 .0 00 IN ti OR 60 1- 6- 00 00 IC ve MO 21 20 20 41 N 81 17 17 79 PH HC 0 18 AR L MA 50 CY 0 MG TA BL ET PO 62 05 05 30 30 00 CL Ac TA 03 -0 -2 .0 00 IN ti SS 70 1- 6- 00 00 IC ve IU 99 20 20 41 M 91 17 17 79 PH CL 0 20 AR MA ER CY 20 ME Q TA BL ET OX 00 05 05 60 30 00 CL Ac YB 83 -0 -2 .0 00 IN ti UT 20 1- 6- 00 00 IC ve YN 03 20 20 41 IN 81 17 17 79 PH 5 0 11 AR MA MG CY TA BL ET VE 00 05 05 18 30 00 CL Ac NT 17 -0 -2 .0 00 IN ti OL 30 1- 6- 00 00 IC ve IN 68 20 20 42 22 17 17 09 PH HF 0 12 AR A MA 90 CY MC G IN CHO LE R SO 00 05 05 60 30 00 CL Ac TA 09 -0 -2 .0 00 IN ti LO 31 1- 6- 00 00 IC ve L 06 20 20 41 80 10 17 17 03 PH 1 92 AR MG MA CY TA BL ET OM 60 05 05 60 30 00 CL Ac EP 50 -0 -2 .0 00 IN ti RA 50 1- 6- 00 00 IC ve ZO 06 20 20 42 LE 50 17 17 97 PH [address] MA CY 20 MG CA PS UL E LI 68 05 05 30 30 00 CL Ac SI 18 -0 -2 .0 00 IN ti NO 00 1- 6- 00 00 IC ve KS 51 20 20 42 IL 30 17 17 98 PH 5 3 30 AR MA MG CY TA BL ET AZ 68 04 05 4. 4 00 CL Ac IT 18 -0 -0 00 00 IN ti HR 00 7- 5- 0 00 IC ve OM 16 20 20 42 YC 01 17 17 74 PH IN 3 27 AR MA 25 CY 0 MG TA BL ET XA 50 04 05 30 30 00 CL Ac RE 45 -1 -0 .0 00 IN ti LT 80 2- 5- 00 00 IC ve O 57 20 20 42 20 93 17 17 78 PH 0 87 AR MG MA CY TA BL ET CL 13 04 04 30 30 00 CL Ac OP 66 -0 -2 .0 00 IN ti ID 80 3- 8- 00 00 IC ve OG 14 20 20 41 RE 10 17 17 04 PH L 5 27 AR 75 MA CY MG TA BL ET AT 60 04 04 30 30 00 CL Ac OR 50 -0 -2 .0 00 IN ti VA 52 3- 8- [address] 67 20 20 41 AT 10 17 17 04 PH IN 9 26 AR MA 80 CY MG TA BL ET CH 37 04 04 30 30 00 CL Ac IL 20 -0 -2 .0 00 IN ti D 50 3- 8- 00 00 IC ve 46 20 20 41 PI 76 17 17 56 PH RI 8 75 AR N MA 81 CY MG CH EW TA B VE 00 04 04 18 30 00 CL Ac NT 17 -0 -2 .0 00 IN ti OL 30 3- 8- 00 00 IC ve IN 68 20 20 42 22 17 17 09 PH HF 0 12 AR A MA 90 CY MC G IN CHO LE R OM 60 04 04 60 30 00 CL Ac EP 50 -0 -2 .0 00 IN ti RA 50 3- 8- 00 00 IC ve ZO 06 20 20 42 LE 50 17 17 06 PH [address] MA CY 20 MG CA PS UL E OX 00 04 04 60 30 00 CL Ac YB 83 -0 -2 .0 00 IN ti UT 20 3- 8- 00 00 IC ve YN 03 20 20 41 IN 81 17 17 79 PH 5 0 11 AR MA MG CY TA BL ET DI 51 04 04 90 30 00 CL Ac AZ 86 -0 -2 .0 00 IN ti EP 20 3- 8- 00 00 IC ve AM 06 20 20 42 5 31 17 17 43 PH 0 05 AR MG MA CY TA BL ET TR 00 04 04 45 7 00 CL Ac IA 60 -0 -2 .0 00 IN ti MC 37 3- 8- 00 00 IC ve IN 86 20 20 42 OL 17 17 17 38 PH ON 4 58 AR E MA 0. CY 02 5% CR EA M LI 68 04 04 30 30 00 CL Ac SI 18 -0 -2 .0 00 IN ti NO 00 3- 8- 00 00 IC ve KS 51 20 20 40 IL 30 17 17 42 PH 5 3 68 AR MA MG CY TA BL ET ME 53 04 04 60 30 00 CL Ac TF 74 -0 -2 .0 00 IN ti OR 60 3- 8- 00 00 IC ve MO 21 20 20 41 N 81 17 17 79 PH HC 0 18 AR L MA 50 CY 0 MG TA BL ET FU 69 04 04 60 30 00 CL Ac RO 31 -0 -2 .0 00 IN ti SE 50 3- 8- 00 00 IC ve MO 11 20 20 41 DE 71 17 17 79 PH 0 17 AR 40 MA CY MG TA BL ET SO 00 04 04 60 30 00 CL Ac TA 09 -0 -2 .0 00 IN ti LO 31 3- 8- 00 00 IC ve L 06 20 20 41 80 10 17 17 03 PH 1 92 AR MG MA CY TA BL ET PO 62 04 04 30 30 00 CL Ac TA 03 -0 -2 .0 00 IN ti SS 70 3- 8- 00 00 IC ve IU 99 20 20 41 M 90 17 17 79 PH CL 5 20 AR MA ER CY 20 ME Q TA BL ET GA 42 04 04 30 30 00 CL Ac BA 58 -0 -2 .0 00 IN ti PE 20 3- 8- 00 00 IC ve NT 11 20 20 42 IN 51 17 17 65 PH 8 37 AR 30 MA 0 CY MG CA PS UL E FE 57 04 04 60 30 00 CL Ac RR 66 -0 -2 .0 00 IN ti OU 40 3- 8- 00 00 IC ve S 07 20 20 42 TURNER 11 17 17 42 PH LF 0 66 AR AT MA E CY 32 5 MG TA BL ET FE 57 03 03 60 30 00 CL Ac RR 66 -0 -3 .0 00 IN ti OU 40 6- 1- 00 00 IC ve S 07 20 20 42 TURNER 11 17 17 42 PH LF 0 66 AR AT MA E CY 32 5 MG TA BL ET VE 00 02 03 18 30 00 CL Ac NT 17 -2 -2 .0 00 IN ti OL 30 7- 4- 00 00 IC ve IN 68 20 20 42 22 17 17 09 PH HF 0 12 AR A MA 90 CY MC G IN CHO LE R CL 13 02 03 30 30 00 CL Ac OP 66 -2 -2 .0 00 IN ti ID 80 7- 4- 00 00 IC ve OG 14 20 20 41 RE 10 17 17 04 PH L 5 27 AR 75 MA CY MG TA BL ET OM 55 02 03 60 30 00 CL Ac EP 11 -2 -2 .0 00 IN ti RA 10 7- 4- 00 00 IC ve ZO 15 20 20 42 LE 81 17 17 06 PH [address] MA CY 20 MG CA PS UL E OX 00 02 03 60 30 00 CL Ac YB 83 -2 -2 .0 00 IN ti UT 20 7- 4- 00 00 IC ve YN 03 20 20 41 IN 81 17 17 79 PH 5 0 11 AR MA MG CY TA BL ET PO 62 02 03 30 30 00 CL Ac TA 03 -2 -2 .0 00 IN ti SS 70 7- 4- 00 00 IC ve IU 99 20 20 41 M 90 17 17 79 PH CL 5 20 AR MA ER CY 20 ME Q TA BL ET SY 00 02 03 10 30 00 CL Ac MB 18 -2 -2 .1 00 IN ti IC 60 7- 4- 99 00 IC ve OR 37 20 20 41 T 22 17 17 79 PH 80 0 19 AR -4 MA .5 CY MC G IN CHO LE R ME 53 02 03 60 30 00 CL Ac TF 74 -2 -2 .0 00 IN ti OR 60 7- 4- 00 00 IC ve MO 21 20 20 41 N 81 17 17 79 PH HC 0 18 AR L MA 50 CY 0 MG TA BL ET FU 69 02 03 60 30 00 CL Ac RO 31 -2 -2 .0 00 IN ti SE 50 7- 4- 00 00 IC ve MO 11 20 20 41 DE 71 17 17 79 PH 0 17 AR 40 MA CY MG TA BL ET LI 68 02 03 30 30 00 CL Ac SI 18 -2 -2 .0 00 IN ti NO 00 7- 4- 00 00 IC ve KS 51 20 20 40 IL 30 17 17 42 PH 5 3 68 AR MA MG CY TA BL ET TR 00 03 03 45 7 00 CL Ac IA 60 -0 -2 .0 00 IN ti MC 37 1- 4- 00 00 IC ve IN 86 20 20 42 OL 17 17 17 38 PH ON 4 58 AR E MA 0. CY 02 5% CR EA M DI 51 02 03 90 30 00 CL Ac AZ 86 -2 -2 .0 00 IN ti EP 20 8- 4- 00 00 IC ve AM 06 20 20 42 5 31 17 17 37 PH 0 68 AR MG MA CY TA BL ET CH 37 02 03 30 30 00 CL Ac IL 20 -2 -2 .0 00 IN ti D 50 7- 4- 00 00 IC ve 46 20 20 41 PI 76 17 17 56 PH RI 8 75 AR N MA 81 CY MG CH EW TA B GA 45 02 03 30 30 00 CL Ac BA 96 -2 -2 .0 00 IN ti PE 30 7- 4- 00 00 IC ve NT 55 20 20 41 IN 65 17 17 03 PH 0 40 AR 30 MA 0 CY MG CA PS UL E AT 60 02 03 30 30 00 CL Ac OR 50 -2 -2 .0 00 IN ti VA 52 7- 4- [address] 67 20 20 41 AT 10 17 17 04 PH IN 9 26 AR MA 80 CY MG TA BL ET SO 00 02 03 60 30 00 CL Ac TA 09 -2 -2 .0 00 IN ti LO 31 7- 4- 00 00 IC ve L 06 20 20 41 80 10 17 17 03 PH 1 92 AR MG MA CY TA BL ET OM 60 01 02 60 30 00 CL Ac EP 50 -3 -2 .0 00 IN ti RA 50 0- 4- 00 00 IC ve ZO 06 20 20 42 LE 50 17 17 06 PH [address] MA CY 20 MG CA PS UL E DI 51 01 02 90 30 00 CL Ac AZ 86 -3 -2 .0 00 IN ti EP 20 0- 4- 00 00 IC ve AM 06 20 20 41 5 31 17 17 37 PH 0 72 AR MG MA CY TA BL ET LI 68 01 02 30 30 00 CL Ac SI 18 -3 -2 .0 00 IN ti NO 00 0- 4- 00 00 IC ve KS 51 20 20 40 IL 30 17 17 42 PH 5 3 68 AR MA MG CY TA BL ET CL 13 01 02 30 30 00 CL Ac OP 66 -3 -2 .0 00 IN ti ID 80 0- 4- 00 00 IC ve OG 14 20 20 41 RE 10 17 17 04 PH L 5 27 AR 75 MA CY MG TA BL ET GA 69 01 02 30 30 00 CL Ac BA 09 -3 -2 .0 00 IN ti PE 70 0- 4- 00 00 IC ve NT 81 20 20 41 IN 41 17 17 03 PH 2 40 AR 30 MA 0 CY MG CA PS UL E AT 60 01 02 30 30 00 CL Ac OR 50 -3 -2 .0 00 IN ti VA 52 0- 4- [address] 67 20 20 41 AT 10 17 17 04 PH IN 8 26 AR MA 80 CY MG TA BL ET SO 00 01 02 60 30 00 CL Ac TA 09 -3 -2 .0 00 IN ti LO 31 0- 4- 00 00 IC ve L 06 20 20 41 80 10 17 17 03 PH 1 92 AR MG MA CY TA BL ET FU 69 01 02 60 30 00 CL Ac RO 31 -3 -2 .0 00 IN ti SE 50 0- 4- 00 00 IC ve MO 11 20 20 41 DE 71 17 17 79 PH 0 17 AR 40 MA CY MG TA BL ET ME 53 01 02 60 30 00 CL Ac TF 74 -3 -2 .0 00 IN ti OR 60 0- 4- 00 00 IC ve MO 21 20 20 41 N 81 17 17 79 PH HC 0 18 AR L MA 50 CY 0 MG TA BL ET SY 00 01 02 10 30 00 CL Ac MB 18 -3 -2 .1 00 IN ti IC 60 0- 4- 99 00 IC ve OR 37 20 20 41 T 22 17 17 79 PH 80 0 19 AR -4 MA .5 CY MC G IN CHO LE R VE 00 01 02 18 25 00 CL Ac NT 17 -3 -2 .0 00 IN ti OL 30 0- 4- 00 00 IC ve IN 68 20 20 40 22 17 17 80 PH HF 0 22 AR A MA 90 CY MC G IN CHO LE R PO 00 01 02 30 30 00 CL Ac TA 78 -3 -2 .0 00 IN ti SS 15 0- 4- 00 00 IC ve IU 72 20 20 41 M 01 17 17 79 PH CL 0 20 AR MA ER CY 20 ME Q TA BL ET OX 00 01 02 60 30 00 CL Ac YB 83 -3 -2 .0 00 IN ti UT 20 0- 4- 00 00 IC ve YN 03 20 20 41 IN 81 17 17 79 PH 5 0 11 AR MA MG CY TA BL ET CH 37 01 02 30 30 00 CL Ac IL 20 -3 -2 .0 00 IN ti D 50 0- 4- 00 00 IC ve 46 20 20 41 PI 76 17 17 56 PH RI 8 75 AR N MA 81 CY MG CH EW TA B TR 00 02 02 45 7 00 CL Ac IA 60 -0 -2 .0 00 IN ti MC 37 1- 4- 00 00 IC ve IN 86 20 20 42 OL 17 17 17 09 PH ON 4 07 AR E MA 0. CY 02 5% CR EA M OX 00 01 02 60 30 00 CL Ac YB 83 -0 -0 .0 00 IN ti UT 20 3- 3- 00 00 IC ve YN 03 20 20 41 IN 81 17 17 79 PH 5 0 11 AR MA MG CY TA BL ET FU 69 01 02 60 30 00 CL Ac RO 31 -0 -0 .0 00 IN ti SE 50 3- 3- 00 00 IC ve MO 11 20 20 41 DE 71 17 17 79 PH 0 17 AR 40 MA CY MG TA BL ET ME 53 01 02 60 30 00 CL Ac TF 74 -0 -0 .0 00 IN ti OR 60 3- 3- 00 00 IC ve MO 21 20 20 41 N 81 17 17 79 PH HC 0 18 AR L MA 50 CY 0 MG TA BL ET SY 00 01 02 10 30 00 CL Ac MB 18 -0 -0 .1 00 IN ti IC 60 3- 3- 99 00 IC ve OR 37 20 20 41 T 22 17 17 79 PH 80 0 19 AR -4 MA .5 CY MC G IN CHO LE R PO 00 01 02 30 30 00 CL Ac TA 78 -0 -0 .0 00 IN ti SS 15 3- 3- 00 00 IC ve IU 72 20 20 41 M 01 17 17 79 PH CL 0 20 AR MA ER CY 20 ME Q TA BL ET SO 00 01 02 60 30 00 CL Ac TA 09 -0 -0 .0 00 IN ti LO 31 3- 3- 00 00 IC ve L 06 20 20 41 80 10 17 17 03 PH 1 92 AR MG MA CY TA BL ET GA 67 01 02 30 30 00 CL Ac BA 87 -0 -0 .0 00 IN ti PE 70 3- 3- 00 00 IC ve NT 22 20 20 41 IN 31 17 17 03 PH 0 40 AR 30 MA 0 CY MG CA PS UL E OM 00 01 02 56 28 00 CL Ac EP 11 -0 -0 .0 00 IN ti RA 30 3- 3- 00 00 IC ve ZO 91 20 20 41 LE 53 17 17 03 PH [address] MA CY 20 MG TA BL ET VE 00 01 02 18 25 00 CL Ac NT 17 -0 -0 .0 00 IN ti OL 30 3- 3- 00 00 IC ve IN 68 20 20 40 22 17 17 80 PH HF 0 22 AR A MA 90 CY MC G IN CHO LE R AT 60 01 02 30 30 00 CL Ac OR 50 -0 -0 .0 00 IN ti VA 52 3- 3- [address] 67 20 20 41 AT 10 17 17 04 PH IN 8 26 AR MA 80 CY MG TA BL ET CL 13 01 02 30 30 00 CL Ac OP 66 -0 -0 .0 00 IN ti ID 80 3- 3- 00 00 IC ve OG 14 20 20 41 RE 10 17 17 04 PH L 5 27 AR 75 MA CY MG TA BL ET CH 37 01 02 30 30 00 CL Ac IL 20 -0 -0 .0 00 IN ti D 50 4- 3- 00 00 IC ve 46 20 20 41 PI 76 17 17 56 PH RI 8 75 AR N MA 81 CY MG CH EW TA B DI 51 12 01 90 30 00 CL Ac AZ 86 -2 -2 .0 00 IN ti EP 20 4- 7- 00 00 IC ve AM 06 20 20 41 5 31 16 17 37 PH 0 72 AR MG MA CY TA BL ET LI 68 12 01 30 30 00 CL Ac SI 18 -2 -2 .0 00 IN ti NO 00 4- 7- 00 00 IC ve KS 51 20 20 40 IL 30 16 17 42 PH 5 3 68 AR MA MG CY TA BL ET ON 00 12 01 6. 2 00 CL Ac DA 78 -2 -2 00 00 IN ti NS 15 2- 7- 0 00 IC ve ET 23 20 20 41 RO 86 16 17 71 PH N 4 29 AR OD MA T CY 4 MG TA BL ET CH 37 12 01 30 30 00 CL Ac IL 20 -0 -1 .0 00 IN ti D 50 8- 3- 00 00 IC ve 46 20 20 41 PI 76 16 17 56 PH RI 8 75 AR N MA 81 CY MG CH EW TA B OX 00 12 01 60 30 00 CL Ac YB 83 -0 -0 .0 00 IN ti UT 20 6- 9- 00 00 IC ve YN 03 20 20 40 IN 81 16 17 56 PH 5 0 28 AR MA MG CY TA BL ET ME 53 12 01 60 30 00 CL Ac TF 74 -0 -0 .0 00 IN ti OR 60 6- 9- 00 00 IC ve MO 21 20 20 40 N 81 16 17 56 PH HC 0 30 AR L MA 50 CY 0 MG TA BL ET SO 00 12 01 60 30 00 CL Ac TA 09 -0 -0 .0 00 IN ti LO 31 6- 9- 00 00 IC ve L 06 20 20 41 80 10 16 17 03 PH 1 92 AR MG MA CY TA BL ET AT 60 12 01 30 30 00 CL Ac OR 50 -0 -0 .0 00 IN ti VA 52 6- 9- [address] 67 20 20 41 AT 10 16 17 04 PH IN 8 26 AR MA 80 CY MG TA BL ET CL 13 12 01 30 30 00 CL Ac OP 66 -0 -0 .0 00 IN ti ID 80 6- 9- 00 00 IC ve OG 14 20 20 41 RE 10 16 17 04 PH L 5 27 AR 75 MA CY MG TA BL ET PO 00 12 01 30 30 00 CL Ac TA 78 -0 -0 .0 00 IN ti SS 15 6- 9- 00 00 IC ve IU 72 20 20 40 M 01 16 17 56 PH CL 0 32 AR MA ER CY 20 ME Q TA BL ET GA 67 12 01 30 30 00 CL Ac BA 87 -0 -0 .0 00 IN ti PE 70 6- 9- 00 00 IC ve NT 22 20 20 41 IN 31 16 17 03 PH 0 40 AR 30 MA 0 CY MG CA PS UL E FU 69 12 01 30 30 00 CL Ac RO 31 -0 -0 .0 00 IN ti SE 50 6- 9- 00 00 IC ve MO 11 20 20 40 DE 71 16 17 56 PH 0 29 AR 40 MA CY MG TA BL ET SY 00 12 01 10 30 00 CL Ac MB 18 -0 -0 .1 00 IN ti IC 60 6- 9 99 00 IC ve OR 37 20 20 40 T 22 16 17 56 PH 80 0 27 AR -4 MA .5 CY MC G IN CHO LE R VE 00 12 01 18 25 00 CL Ac NT 17 -0 -0 .0 00 IN ti OL 30 6- 9- 00 00 IC ve IN 68 20 20 40 22 16 17 80 PH HF 0 22 AR A MA 90 CY MC G IN CHO LE R OM 00 12 01 56 28 00 CL Ac EP 11 -0 -0 .0 00 IN ti RA 30 6- 9- 00 00 IC ve ZO 91 20 20 41 LE 53 16 17 03 PH [address] MA CY 20 MG TA BL ET SO 00 02 0 No DI 40 -1 UM 97 7- Lo 98 20 ng CH 30 14 er LO 9 RI Ac DE ti ve 0. 9% SO BAKARI TI ON Sa 63 02 0 No li 80 -1 ne 70 7- Lo 10 20 ng Fl 07 14 er us 5 h Ac 10 ti ML ve Sy ri ng e Sa 63 02 0 No li 80 -1 ne 70 7- Lo 10 20 ng Fl 07 14 er us 5 h Ac 10 ti ML ve Sy ri ng e Sa 63 02 0 No li 80 -1 ne 70 7- Lo 10 20 ng Fl 07 14 er us 5 h Ac 10 ti ML ve Sy ri ng e Sa 63 01 0 No li 80 -1 ne 70 3- Lo 10 20 ng Fl 07 14 er us 5 h Ac 10 ti ML ve Sy ri ng e ON 00 01 0 No DA 64 -1 NS 16 3- Lo ET 08 20 ng RO 02 14 er N 5 HC Ac L ti 4 ve MG /2 ML AL SO 00 01 0 No DI 40 -1 UM 97 3- Lo 98 20 ng CH 30 14 er LO 9 RI Ac DE ti ve 0. 9% SO BAKARI TI ON De 00 08 0 No xa 51 -0 me 74 4- Lo th 90 20 ng as 12 13 er on 5 e Ac 4M ti G/ ve Ml Sd v OR 17 08 0 No PH 47 -0 EN 80 4- Lo AD 53 20 ng RI 80 13 er NE 2 Ac 30 ti ve MG /M L AL TR 00 08 0 No AM 09 -0 AD 30 4- Lo OL 05 20 ng 80 13 er 50 1H MG Ac ti TA ve BL ET TA KE HO ME KE 00 08 0 No TO 40 -0 RO 93 4- Lo LA 79 20 ng C 60 13 er 60 1 Ac MG ti /2 ve ML AL DI 00 10 10 0 90 30 CL 24 CO Ac AZ 59 -1 -1 .0 IN 74 OP ti EP 15 3- 3- 00 IC 14 ER ve AM 61 20 20 5 91 11 11 PH DUARTE 0 AR HN MG MA G CY TA BL LL ET C VE 51 10 10 0 30 30 CL 24 CO Ac SI 24 -1 -1 .0 IN 74 OP ti CA 80 3- 3- 00 IC 15 ER ve RE 15 20 20 10 11 11 PH DUARTE 10 1 AR HN MA G MG CY TA LL BL C ET KS 37 10 10 0 60 30 CL 24 CO Ac IL 00 -1 -1 .0 IN 74 OP ti OS 00 3- 3- 00 IC 16 ER ve EC 45 20 20 50 11 11 PH DUARTE OT 3 AR HN C MA G 20 CY .6 LL MG C TA BL ET HY 00 04 10 2 15 30 CL [address] 60 -1 -1 .0 IN 68 OP ti OC 33 8- 2- 00 IC 30 ER ve HL 85 20 20 OR 63 11 11 PH DUARTE OT 2 AR HN HI MA G AZ CY ID E LL 25 C MG TA B ME 68 06 10 5 60 30 CL 23 CO Ac LO 18 -0 -1 .0 IN 97 OP ti XI 00 3- 2- 00 IC 15 ER ve CA 50 20 20 M 10 11 11 PH DUARTE 7. 1 AR HN 5 MA G MG CY TA LL BL C ET VY 66 07 10 5 30 30 CL 24 CO Ac TO 58 -0 -1 .0 IN 17 OP ti RI 20 8- 2- 00 IC 71 ER ve N 31 20 20 10 35 11 11 PH DUARTE -4 4 AR HN 0 MA G MG CY TA LL BL C ET ME 00 07 10 5 30 30 CL 24 CO Ac TO 09 -0 -1 .0 IN 17 OP ti KS 30 8- 2- 00 IC 72 ER ve OL 73 20 20 OL 31 11 11 PH DUARTE 0 AR HN TA MA G RT CY RA TE LL C 50 MG TA B PO 00 08 10 5 30 30 CL 24 CO Ac TA 78 -1 -1 .0 IN 35 OP ti SS 15 1- 2- 00 IC 75 ER ve IU 72 20 20 M 01 11 11 PH DUARTE CL 0 AR HN MA G ER CY 20 LL C ME Q TA BL ET LI 00 08 10 5 30 30 CL 24 CO Ac SI 37 -1 -1 .0 IN 35 OP ti NO 82 1- 2- 00 IC 76 ER ve KS 07 20 20 IL 20 11 11 PH DUARTE 1 AR HN 2. MA G 5 CY MG LL TA C BL ET VE 00 08 10 5 18 25 CL 24 CO Ac NT 17 -1 -1 .0 IN 35 OP ti OL 30 1- 2- 00 IC 77 ER ve IN 68 20 20 22 11 11 PH DUARTE HF 0 AR HN A MA G 90 CY MC LL G C IN CHO LE R 00 08 10 5 30 30 CL 24 CO Ac PI 90 -1 -1 .0 IN 35 OP ti RI 42 1- 2- 00 IC 93 ER ve N 01 20 20 EC 36 11 11 PH DUARTE 0 AR HN 32 MA G 5 CY MG LL TA C BL ET 14 08 10 5 60 30 CL 24 CO Ac 55 -1 -1 .0 IN 35 OP ti 00 1- 2- 00 IC 94 ER ve 51 20 20 20 11 11 PH DUARTE 4 AR HN MA G CY LL C DI 00 08 09 1 90 30 CL 24 CO Ac AZ 59 -1 -1 .0 IN 35 OP ti EP 15 1- 2- 00 IC 74 ER ve AM 61 20 20 5 91 11 11 PH DUARTE 0 AR HN MG MA G CY TA BL LL ET C PO 00 08 09 5 30 30 CL 24 CO Ac TA 78 -1 -1 .0 IN 35 OP ti SS 15 1- 2- 00 IC 75 ER ve IU 72 20 20 M 01 11 11 PH DUARTE CL 0 AR HN MA G ER CY 20 LL C ME Q TA BL ET LI 00 08 09 5 30 30 CL 24 CO Ac SI 37 -1 -1 .0 IN 35 OP ti NO 82 1- 2- 00 IC 76 ER ve KS 07 20 20 IL 20 11 11 PH DUARTE 1 AR HN 2. MA G 5 CY MG LL TA C BL ET VE 00 08 09 5 18 25 CL 24 CO Ac NT 17 -1 -1 .0 IN 35 OP ti OL 30 1- 2- 00 IC 77 ER ve IN 68 20 20 22 11 11 PH DUARTE HF 0 AR HN A MA G 90 CY MC LL G C IN CHO LE R 00 08 09 5 30 30 CL 24 CO Ac PI 90 -1 -1 .0 IN 35 OP ti RI 42 1- 2- 00 IC 93 ER ve N 01 20 20 EC 36 11 11 PH DUARTE 0 AR HN 32 MA G 5 CY MG LL TA C BL ET 14 08 09 5 60 30 CL 24 CO Ac 55 -1 -1 .0 IN 35 OP ti 00 1- 2- 00 IC 94 ER ve 51 20 20 20 11 11 PH DUARTE 4 AR HN MA G CY LL C KS 37 09 09 0 60 30 CL 24 CO Ac IL 00 -1 -1 .0 IN 54 OP ti OS 00 2- 2- 00 IC 46 ER ve EC 45 20 20 50 11 11 PH DUARTE OT 3 AR HN C MA G 20 CY .6 LL MG C TA BL ET HY 00 04 09 2 15 30 CL [address] 60 -1 -1 .0 IN 68 OP ti OC 33 8- 2- 00 IC 30 ER ve HL 85 20 20 OR 63 11 11 PH DUARTE OT 2 AR HN HI MA G AZ CY ID E LL 25 C MG TA B VE 51 04 09 4 30 30 CL 23 CO Ac SI 24 -1 -1 .0 IN 68 OP ti CA 80 8- 2- 00 IC 32 ER ve RE 15 20 20 10 11 11 PH DUARTE 10 1 AR HN MA G MG CY TA LL BL C ET ME 68 06 09 5 60 30 CL 23 CO Ac LO 18 -0 -1 .0 IN 97 OP ti XI 00 3- 2- 00 IC 15 ER ve CA 50 20 20 M 10 11 11 PH DUARTE 7. 1 AR HN 5 MA G MG CY TA LL BL C ET VY 66 07 09 5 30 30 CL 24 CO Ac TO 58 -0 -1 .0 IN 17 OP ti RI 20 8- 2- 00 IC 71 ER ve N 31 20 20 10 35 11 11 PH DUARTE -4 4 AR HN 0 MA G MG CY TA LL BL C ET ME 00 07 09 5 30 30 CL 24 CO Ac TO 09 -0 -1 .0 IN 17 OP ti KS 30 8- 2- 00 IC 72 ER ve OL 73 20 20 OL 31 11 11 PH DUARTE 0 AR HN TA MA G RT CY RA TE LL C 50 MG TA B DI 00 08 08 1 90 30 CL 24 CO Ac AZ 59 -1 -1 .0 IN 35 OP ti EP 15 1- 1- 00 IC 74 ER ve AM 61 20 20 5 91 11 11 PH DUARTE 0 AR HN MG MA G CY TA BL LL ET C PO 00 08 08 5 30 30 CL 24 CO Ac TA 78 -1 -1 .0 IN 35 OP ti SS 15 1- 1- 00 IC 75 ER ve IU 72 20 20 M 01 11 11 PH DUARTE CL 0 AR HN MA G ER CY 20 LL C ME Q TA BL ET LI 00 08 08 5 30 30 CL 24 CO Ac SI 37 -1 -1 .0 IN 35 OP ti NO 82 1- 1- 00 IC 76 ER ve KS 07 20 20 IL 20 11 11 PH DUARTE 1 AR HN 2. MA G 5 CY MG LL TA C BL ET VE 00 08 08 5 18 25 CL 24 CO Ac NT 17 -1 -1 .0 IN 35 OP ti OL 30 1- 1- 00 IC 77 ER ve IN 68 20 20 22 11 11 PH DUARTE HF 0 AR HN A MA G 90 CY MC LL G C IN CHO LE R 00 08 08 5 30 30 CL 24 CO Ac PI 90 -1 -1 .0 IN 35 OP ti RI 42 1- 1- 00 IC 93 ER ve N 01 20 20 EC 36 11 11 PH DUARTE 0 AR HN 32 MA G 5 CY MG LL TA C BL ET 14 08 08 5 60 30 CL 24 CO Ac 55 -1 -1 .0 IN 35 OP ti 00 1- 1- 00 IC 94 ER ve 51 20 20 20 11 11 PH DUARTE 4 AR HN MA G CY LL C KS 37 02 08 5 60 30 CL 23 CO Ac IL 00 -1 -1 .0 IN 27 OP ti OS 00 5- 0- 00 IC 14 ER ve EC 45 20 20 50 11 11 PH DUARTE OT 3 AR HN C MA G 20 CY .6 LL MG C TA BL ET HY 00 04 08 2 15 30 CL [address] 60 -1 -1 .0 IN 68 OP ti OC 33 8- 0- 00 IC 30 ER ve HL 85 20 20 OR 63 11 11 PH DUARTE OT 2 AR HN HI MA G AZ CY ID E LL 25 C MG TA B VE 51 04 08 4 30 30 CL 23 CO Ac SI 24 -1 -1 .0 IN 68 OP ti CA 80 8- 0- 00 IC 32 ER ve RE 15 20 20 10 11 11 PH DUARTE 10 1 AR HN MA G MG CY TA LL BL C ET ME 68 06 08 5 60 30 CL 23 CO Ac LO 18 -0 -1 .0 IN 97 OP ti XI 00 3- 0- 00 IC 15 ER ve CA 50 20 20 M 10 11 11 PH DUARTE 7. 1 AR HN 5 MA G MG CY TA LL BL C ET VY 66 07 08 5 30 30 CL 24 CO Ac TO 58 -0 -1 .0 IN 17 OP ti RI 20 8- 0- 00 IC 71 ER ve N 31 20 20 10 35 11 11 PH DUARTE -4 4 AR HN 0 MA G MG CY TA LL BL C ET ME 00 07 08 5 30 30 CL 24 CO Ac TO 09 -0 -1 .0 IN 17 OP ti KS 30 8- 0- 00 IC 72 ER ve OL 73 20 20 OL 31 11 11 PH DUARTE 0 AR HN TA MA G RT CY RA TE LL C 50 MG TA B TR 65 07 07 0 15 5 CL 24 GA Ac AM 16 -0 -0 .0 IN 17 IN ti AD 20 8- 9- 00 IC 98 EY ve OL 62 20 20 71 11 11 PH MO HC 1 AR CH L MA AE 50 CY L S MG LL C TA BL ET KS 37 02 07 5 60 30 CL 23 CO Ac IL 00 -1 -0 .0 IN 27 OP ti OS 00 5- 8- 00 IC 14 ER ve EC 45 20 20 50 11 11 PH DUARTE OT 3 AR HN C MA G 20 CY .6 LL MG C TA BL ET HY 00 04 07 2 15 30 CL [address] 60 -1 -0 .0 IN 68 OP ti OC 33 8- 8- 00 IC 30 ER ve HL 85 20 20 OR 63 11 11 PH DUARTE OT 2 AR HN HI MA G AZ CY ID E LL 25 C MG TA B VE 51 04 07 4 30 30 CL 23 CO Ac SI 24 -1 -0 .0 IN 68 OP ti CA 80 8- 8- 00 IC 32 ER ve RE 15 20 20 10 11 11 PH DUARTE 10 1 AR HN MA G MG CY TA LL BL C ET ME 68 06 07 5 60 30 CL 23 CO Ac LO 18 -0 -0 .0 IN 97 OP ti XI 00 3- 8- 00 IC 15 ER ve CA 50 20 20 M 10 11 11 PH DUARTE 7. 1 AR HN 5 MA G MG CY TA LL BL C ET VY 66 07 07 5 30 30 CL 24 CO Ac TO 58 -0 -0 .0 IN 17 OP ti RI 20 8- 8- 00 IC 71 ER ve N 31 20 20 10 35 11 11 PH DUARTE -4 4 AR HN 0 MA G MG CY TA LL BL C ET ME 00 07 07 5 30 30 CL 24 CO Ac TO 09 -0 -0 .0 IN 17 OP ti KS 30 8- 8- 00 IC 72 ER ve OL 73 20 20 OL 31 11 11 PH DUARTE 0 AR HN TA MA G RT CY RA TE LL C 50 MG TA B DI 00 07 07 0 90 30 CL 24 CO Ac AZ 59 -0 -0 .0 IN 17 OP ti EP 15 8- 8- 00 IC 73 ER ve AM 61 20 20 5 91 11 11 PH DUARTE 0 AR HN MG MA G CY TA BL LL ET C 00 02 07 5 30 30 CL 23 CO Ac PI 90 -0 -0 .0 IN 18 OP ti RI 42 2- 8- 00 IC 10 ER ve N 01 20 20 EC 36 11 11 PH DUARTE 0 AR HN 32 MA G 5 CY MG LL TA C BL ET VE 00 02 07 5 18 25 CL 23 CO Ac NT 17 -0 -0 .0 IN 18 OP ti OL 30 2- 8- 00 IC 11 ER ve IN 68 20 20 22 11 11 PH DUARTE HF 0 AR HN A MA G 90 CY MC LL G C IN CHO LE R PO 00 02 07 5 30 30 CL 23 CO Ac TA 78 -0 -0 .0 IN 18 OP ti SS 15 2- 8- 00 IC 12 ER ve IU 72 20 20 M 01 11 11 PH DUARTE CL 0 AR HN MA G ER CY 20 LL C ME Q TA BL ET LI 00 02 07 5 30 30 CL 23 CO Ac SI 37 -0 -0 .0 IN 18 OP ti NO 82 2- 8- 00 IC 13 ER ve KS 07 20 20 IL 20 11 11 PH DUARTE 1 AR HN 2. MA G 5 CY MG LL TA C BL ET 14 02 07 4 60 30 CL 23 CO Ac 55 -1 -0 .0 IN 27 OP ti 00 5- 8- 00 IC 13 ER ve 51 20 20 20 11 11 PH DUARTE 4 AR HN MA G CY LL C KS 68 06 06 0 12 2 CL 24 GR Ac OM 38 -1 -1 .0 IN 02 AY ti ET 20 3- 3- 00 IC 92 ve CHO 04 20 20 RO ZI 10 11 11 PH BE NE 1 AR RT MA B 25 CY MG LL C TA BL ET GA 43 06 06 0 40 1 CL 24 SC Ac 38 -0 -0 00 IN 01 HU ti LY 60 9- 9- .0 IC 32 LS ve TE 06 20 20 00 TA -C 01 11 11 PH D 9 AR CA SO MA MP BAKARI CY BE TI LL ON LL K C ME 68 06 06 5 60 30 CL 23 CO Ac LO 18 -0 -0 .0 IN 97 OP ti XI 00 3- 3- 00 IC 15 ER ve CA 50 20 20 M 10 11 11 PH DUARTE 7. 1 AR HN 5 MA G MG CY TA LL BL C ET TURNER 53 06 06 0 20 10 CL 23 NO Ac LF 74 -0 -0 .0 IN 97 RF ti AM 60 3- 3- 00 IC 77 LE ve ET 27 20 20 ET HO 20 11 11 PH R XA 5 AR ZO MA HE LE CY NR -T Y MP LL C DS TA BL ET DI 00 04 06 1 90 30 CL 23 CO Ac AZ 59 -2 -0 .0 IN 75 OP ti EP 15 9- 2- 00 IC 00 ER ve AM 61 20 20 5 91 11 11 PH DUARTE 0 AR HN MG MA G CY TA BL LL ET C PO 00 02 06 5 30 30 CL 23 CO Ac TA 78 -0 -0 .0 IN 18 OP ti SS 15 2- 2- 00 IC 12 ER ve IU 72 20 20 M 01 11 11 PH DUARTE CL 0 AR HN MA G ER CY 20 LL C ME Q TA BL ET LI 68 02 06 5 30 30 CL 23 CO Ac SI 18 -0 -0 .0 IN 18 OP ti NO 00 2- 2- 00 IC 13 ER ve KS 51 20 20 IL 20 11 11 PH DUARTE 2 AR HN 2. MA G 5 CY MG LL TA C BL ET 14 02 06 4 60 30 CL 23 CO Ac 55 -1 -0 .0 IN 27 OP ti 00 5- 2- 00 IC 13 ER ve 51 20 20 20 11 11 PH DUARTE 4 AR HN MA G CY LL C KS 37 02 06 5 60 30 CL 23 CO Ac IL 00 -1 -0 .0 IN 27 OP ti OS 00 5- 2- 00 IC 14 ER ve EC 45 20 20 50 11 11 PH DUARTE OT 3 AR HN C MA G 20 CY .6 LL MG C TA BL ET HY 00 04 06 2 15 30 CL [address] 60 -1 -0 .0 IN 68 OP ti OC 33 8- 2- 00 IC 30 ER ve HL 85 20 20 OR 63 11 11 PH DUARTE OT 2 AR HN HI MA G AZ CY ID E LL 25 C MG TA B VE 51 04 06 4 30 30 CL 23 CO Ac SI 24 -1 -0 .0 IN 68 OP ti CA 80 8- 2- 00 IC 32 ER ve RE 15 20 20 10 11 11 PH DUARTE 10 1 AR HN MA G MG CY TA LL BL C ET ME 00 12 06 5 30 30 CL 22 CO Ac TO 09 -0 -0 .0 IN 84 OP ti KS 30 9- 2- 00 IC 35 ER ve OL 73 20 20 OL 31 10 11 PH DUARTE 0 AR HN TA MA G RT CY RA TE LL C 50 MG TA B VY 66 12 06 5 30 30 CL 22 CO Ac TO 58 -0 -0 .0 IN 84 OP ti RI 20 9- 2- 00 IC 37 ER ve N 31 20 20 10 35 10 11 PH DUARTE -4 4 AR HN 0 MA G MG CY TA LL BL C ET 00 02 06 5 30 30 CL 23 CO Ac PI 90 -0 -0 .0 IN 18 OP ti RI 42 2- 2- 00 IC 10 ER ve N 01 20 20 EC 36 11 11 PH DUARTE 0 AR HN 32 MA G 5 CY MG LL TA C BL ET VE 00 02 06 5 18 25 CL 23 CO Ac NT 17 -0 -0 .0 IN 18 OP ti OL 30 2- 2- 00 IC 11 ER ve IN 68 20 20 22 11 11 PH DUARTE HF 0 AR HN A MA G 90 CY MC LL G C IN CHO LE R DI 00 04 05 1 90 30 CL 23 CO Ac AZ 59 -2 -0 .0 IN 75 OP ti EP 15 9- 2- 00 IC 00 ER ve AM 61 20 20 5 91 11 11 PH DUARTE 0 AR HN MG MA G CY TA BL LL ET C 00 02 04 5 30 30 CL 23 CO Ac PI 90 -0 -2 .0 IN 18 OP ti RI 42 2- 8- 00 IC 10 ER ve N 01 20 20 EC 36 11 11 PH DUARTE 0 AR HN 32 MA G 5 CY MG LL TA C BL ET VE 00 02 04 5 18 25 CL 23 CO Ac NT 17 -0 -2 .0 IN 18 OP ti OL 30 2- 8- 00 IC 11 ER ve IN 68 20 20 22 11 11 PH DUARTE HF 0 AR HN A MA G 90 CY MC LL G C IN CHO LE R PO 00 02 04 5 30 30 CL 23 CO Ac TA 78 -0 -2 .0 IN 18 OP ti SS 15 2- 8- 00 IC 12 ER ve IU 72 20 20 M 00 11 11 PH DUARTE CL 1 AR HN MA G ER CY 20 LL C ME Q TA BL ET LI 68 02 04 5 30 30 CL 23 CO Ac SI 18 -0 -2 .0 IN 18 OP ti NO 00 2- 8- 00 IC 13 ER ve KS 51 20 20 IL 20 11 11 PH DUARTE 2 AR HN 2. MA G 5 CY MG LL TA C BL ET 14 02 04 4 60 30 CL 23 CO Ac 55 -1 -2 .0 IN 27 OP ti 00 5- 8- 00 IC 13 ER ve 51 20 20 20 11 11 PH DUARTE 4 AR HN MA G CY LL C KS 37 02 04 5 60 30 CL 23 CO Ac IL 00 -1 -2 .0 IN 27 OP ti OS 00 5- 8- 00 IC 14 ER ve EC 45 20 20 50 11 11 PH DUARTE OT 3 AR HN C MA G 20 CY .6 LL MG C TA BL ET ME 00 12 04 5 30 30 CL 22 CO Ac TO 09 -0 -2 .0 IN 84 OP ti KS 30 9- 8- 00 IC 35 ER ve OL 73 20 20 OL 31 10 11 PH DUARTE 0 AR HN TA MA G RT CY RA TE LL C 50 MG TA B VY 66 12 04 5 30 30 CL 22 CO Ac TO 58 -0 -2 .0 IN 84 OP ti RI 20 9- 8- 00 IC 37 ER ve N 31 20 20 10 35 10 11 PH DUARTE -4 4 AR HN 0 MA G MG CY TA LL BL C ET ME 68 12 04 4 60 30 CL 22 CO Ac LO 18 -0 -2 .0 IN 84 OP ti XI 00 9- 8- 00 IC 38 ER ve CA 50 20 20 M 10 10 11 PH DUARTE 7. 1 AR HN 5 MA G MG CY TA LL BL C ET HY 00 04 04 2 15 30 CL [address] 60 -1 -1 .0 IN 68 OP ti OC 33 8- 8- 00 IC 30 ER ve HL 85 20 20 OR 63 11 11 PH DUARTE OT 2 AR HN HI MA G AZ CY ID E LL 25 C MG TA B VE 51 04 04 4 30 30 CL 23 CO Ac SI 24 -1 -1 .0 IN 68 OP ti CA 80 8- 8- 00 IC 32 ER ve RE 15 20 20 10 11 11 PH DUARTE 10 1 AR HN MA G MG CY TA LL BL C ET ME 68 12 03 4 60 30 CL 22 CO Ac LO 18 -0 -1 .0 IN 84 OP ti XI 00 9- 7- 00 IC 38 ER ve CA 50 20 20 M 10 10 11 PH DUARTE 7. 1 AR HN 5 MA G MG CY TA LL BL C ET 00 02 03 5 30 30 CL 23 CO Ac PI 90 -0 -1 .0 IN 18 OP ti RI 42 2- 7- 00 IC 10 ER ve N 01 20 20 EC 36 11 11 PH DUARTE 0 AR HN 32 MA G 5 CY MG LL TA C BL ET VE 00 02 03 5 18 25 CL 23 CO Ac NT 17 -0 -1 .0 IN 18 OP ti OL 30 2- 7- 00 IC 11 ER ve IN 68 20 20 22 11 11 PH DUARTE HF 0 AR HN A MA G 90 CY MC LL G C IN CHO LE R PO 62 02 03 5 30 30 CL 23 CO Ac TA 03 -0 -1 .0 IN 18 OP ti SS 70 2- 7- 00 IC 12 ER ve IU 99 20 20 M 90 11 11 PH DUARTE CL 5 AR HN MA G ER CY 20 LL C ME Q TA BL ET LI 68 02 03 5 30 30 CL 23 CO Ac SI 18 -0 -1 .0 IN 18 OP ti NO 00 2- 7- 00 IC 13 ER ve KS 51 20 20 IL 20 11 11 PH DUARTE 2 AR HN 2. MA G 5 CY MG LL TA C BL ET DI 00 02 03 1 90 30 CL 23 CO Ac AZ 59 -1 -1 .0 IN 23 OP ti EP 15 0- 7- 00 IC 50 ER ve AM 61 20 20 5 91 11 11 PH DUARTE 0 AR HN MG MA G CY TA BL LL ET C 14 02 03 4 60 30 CL 23 CO Ac 55 -1 -1 .0 IN 27 OP ti 00 5- 7- 00 IC 13 ER ve 51 20 20 20 11 11 PH DUARTE 4 AR HN MA G CY LL C ME 00 12 03 5 30 30 CL 22 CO Ac TO 09 -0 -1 .0 IN 84 OP ti KS 30 9- 7- 00 IC 35 ER ve OL 73 20 20 OL 31 10 11 PH DUARTE 0 AR HN TA MA G RT CY RA TE LL C 50 MG TA B VY 66 12 03 5 30 30 CL 22 CO Ac TO 58 -0 -1 .0 IN 84 OP ti RI 20 9- 7- 00 IC 37 ER ve N 31 20 20 10 35 10 11 PH DUARTE -4 4 AR HN 0 MA G MG CY TA LL BL C ET 14 02 02 4 60 30 CL 23 CO Ac 55 -1 -1 .0 IN 27 OP ti 00 5- 5- 00 IC 13 ER ve 51 20 20 20 11 11 PH DUARTE 4 AR HN MA G CY LL C KS 37 02 02 5 60 30 CL 23 CO Ac IL 00 -1 -1 .0 IN 27 OP ti OS 00 5- 5- 00 IC 14 ER ve EC 45 20 20 50 11 11 PH DUARTE OT 3 AR HN C MA G 20 CY .6 LL MG C TA BL ET DI 00 02 02 1 90 30 CL 23 CO Ac AZ 59 -1 -1 .0 IN 23 OP ti EP 15 0- 0- 00 IC 50 ER ve AM 61 20 20 5 91 11 11 PH DUARTE 0 AR HN MG MA G CY TA BL LL ET C ME 68 12 02 4 60 30 CL 22 CO Ac LO 18 -0 -0 .0 IN 84 OP ti XI 00 9- 3- 00 IC 38 ER ve CA 50 20 20 M 10 10 11 PH DUARTE 7. 1 AR HN 5 MA G MG CY TA LL BL C ET TR 00 02 02 0 45 15 CL 23 CO Ac IA 16 -0 -0 .0 IN 18 OP ti MC 80 3- 3- 00 IC 97 ER ve IN 00 20 20 OL 31 11 11 PH DUARTE ON 5 AR HN E MA G 0. CY 02 5% LL C CR EA M 00 02 02 5 30 30 CL 23 CO Ac PI 90 -0 -0 .0 IN 18 OP ti RI 42 2- 2- 00 IC 10 ER ve N 01 20 20 EC 36 11 11 PH DUARTE 0 AR HN 32 MA G 5 CY MG LL TA C BL ET VE 00 02 02 5 18 25 CL 23 CO Ac NT 17 -0 -0 .0 IN 18 OP ti OL 30 2- 2- 00 IC 11 ER ve IN 68 20 20 22 11 11 PH DUARTE HF 0 AR HN A MA G 90 CY MC LL G C IN CHO LE R PO 62 02 02 5 30 30 CL 23 CO Ac TA 03 -0 -0 .0 IN 18 OP ti SS 70 2- 2- 00 IC 12 ER ve IU 99 20 20 M 90 11 11 PH DUARTE CL 5 AR HN MA G ER CY 20 LL C ME Q TA BL ET LI 00 02 02 5 30 30 CL 23 CO Ac SI 37 -0 -0 .0 IN 18 OP ti NO 82 2- 2- 00 IC 13 ER ve KS 07 20 20 IL 20 11 11 PH DUARTE 1 AR HN 2. MA G 5 CY MG LL TA C BL ET 00 10 02 4 30 30 CL 22 CO Ac 07 -0 -0 .0 IN 43 OP ti 80 4- 2- 00 IC 04 ER ve 42 20 20 01 10 11 PH DUARTE 5 AR HN MA G CY LL C ME 00 12 02 5 30 30 CL 22 CO Ac TO 09 -0 -0 .0 IN 84 OP ti KS 30 9- 2- 00 IC 35 ER ve OL 73 20 20 OL 31 10 11 PH DUARTE 0 AR HN TA MA G RT CY RA TE LL C 50 MG TA B VY 66 12 02 5 30 30 CL 22 CO Ac TO 58 -0 -0 .0 IN 84 OP ti RI 20 9- 2- 00 IC 37 ER ve N 31 20 20 10 35 10 11 PH DUARTE -4 4 AR HN 0 MA G MG CY TA LL BL C ET NI 00 01 01 3 25 25 CL 23 NO Ac TR 07 -0 -0 .0 IN 01 RF ti OS 10 7- 7- 00 IC 67 LE ve TA 41 20 20 ET T 81 11 11 PH R 0. 3 AR 4 MA HE MG CY NR Y TA LL BL C ET SL DI 00 12 01 1 90 30 CL 22 CO Ac AZ 59 -1 -0 .0 IN 84 OP ti EP 15 0- 7- 00 IC 90 ER ve AM 61 20 20 5 91 10 11 PH DUARTE 0 AR HN MG MA G CY TA BL LL ET C ME 68 12 01 4 60 30 CL 22 CO Ac LO 46 -0 -0 .0 IN 84 OP ti XI 20 9- 7- 00 IC 38 ER ve CA 14 20 20 M 00 10 11 PH DUARTE 7. 1 AR HN 5 MA G MG CY TA LL BL C ET ME 00 12 01 5 30 30 CL 22 CO Ac TO 09 -0 -0 .0 IN 84 OP ti KS 30 9- 5- 00 IC 35 ER ve OL 73 20 20 OL 31 10 11 PH DUARTE 0 AR HN TA MA G RT CY RA TE LL C 50 MG TA B VY 66 12 01 5 30 30 CL 22 CO Ac TO 58 -0 -0 .0 IN 84 OP ti RI 20 9- 5- 00 IC 37 ER ve N 31 20 20 10 35 10 11 PH DUARTE -4 4 AR HN 0 MA G MG CY TA LL BL C ET LI 00 08 01 5 30 30 CL 22 CO Ac SI 37 -0 -0 .0 IN 06 OP ti NO 82 2- 5- 00 IC 60 ER ve KS 07 20 20 IL 20 10 11 PH DUARTE 1 AR HN 2. MA G 5 CY MG LL TA C BL ET PO 62 08 01 5 30 30 CL 22 CO Ac TA 03 -0 -0 .0 IN 06 OP ti SS 70 2- 5- 00 IC 61 ER ve IU 99 20 20 M 90 10 11 PH DUARTE CL 5 AR HN MA G ER CY 20 LL C ME Q TA BL ET 00 08 01 5 30 30 CL 22 CO Ac PI 90 -0 -0 .0 IN 06 OP ti RI 42 2- 5- 00 IC 62 ER ve N 01 20 20 EC 36 10 11 PH DUARTE 0 AR HN 32 MA G 5 CY MG LL TA C BL ET VE 00 08 01 5 18 25 CL 22 CO Ac NT 17 -0 -0 .0 IN 06 OP ti OL 30 2- 5- 00 IC 63 ER ve IN 68 20 20 22 10 11 PH DUARTE HF 0 AR HN A MA G 90 CY MC LL G C IN CHO LE R 00 10 01 4 30 30 CL 22 CO Ac 07 -0 -0 .0 IN 43 OP ti 80 4- 5- 00 IC 04 ER ve 42 20 20 01 10 11 PH DUARTE 5 AR HN MA G CY LL C ME 68 12 12 4 60 30 CL 22 CO Ac LO 46 -0 -1 .0 IN 84 OP ti XI 20 9- 0- 00 IC 38 ER ve CA 14 20 20 M 00 10 10 PH DUARTE 7. 1 AR HN 5 MA G MG CY TA LL BL C ET DI 00 12 12 1 90 30 CL 22 CO Ac AZ 59 -1 -1 .0 IN 84 OP ti EP 15 0- 0- 00 IC 90 ER ve AM 61 20 20 5 91 10 10 PH DUARTE 0 AR HN MG MA G CY TA BL LL ET C LI 00 08 12 5 30 30 CL 22 CO Ac SI 37 -0 -0 .0 IN 06 OP ti NO 82 2- 6- 00 IC 60 ER ve KS 07 20 20 [place] 20 10 10 PH DUARTE 1 AR HN 2. MA G 5 CY MG LL TA C BL ET PO 62 08 12 5 30 30 CL 22 CO Ac TA 03 -0 -0 .0 IN 06 OP ti SS 70 2- 6- 00 IC 61 ER ve IU 99 20 20 M 90 10 10 PH DUARTE CL 5 AR HN MA G ER CY 20 LL C ME Q TA BL ET 00 08 12 5 30 30 CL 22 CO Ac PI 90 -0 -0 .0 IN 06 OP ti RI 42 2- 6- 00 IC 62 ER ve N 01 20 20 EC 36 10 10 PH DUARTE 0 AR HN 32 MA G 5 CY MG LL TA C BL ET VE 00 08 12 5 18 25 CL 22 CO Ac NT 17 -0 -0 .0 IN 06 OP ti OL 30 2- 6- 00 IC 63 ER ve IN 68 20 20 22 10 10 PH DUARTE HF 0 AR HN A MA G 90 CY MC LL G C IN CHO LE R ME 00 09 12 3 60 30 CL 22 CO Ac TO 09 -0 -0 .0 IN 26 OP ti KS 30 3- 6- 00 IC 58 ER ve OL 73 20 20 OL 31 10 10 PH DUARTE 0 AR HN TA MA G RT CY RA TE LL C 50 MG TA B 00 10 12 4 30 30 CL 22 CO Ac 07 -0 -0 .0 IN 43 OP ti 80 4- 6- 00 IC 04 ER ve 42 20 20 01 10 10 PH DUARTE 5 AR HN MA G CY LL C 00 08 11 5 30 30 CL 22 CO Ac PI 90 -0 -0 .0 IN 06 OP ti RI 42 2- 5- 00 IC 62 ER ve N 01 20 20 EC 36 10 10 PH DUARTE 0 AR HN 32 MA G 5 CY MG LL TA C BL ET VE 00 08 11 5 18 25 CL 22 CO Ac NT 17 -0 -0 .0 IN 06 OP ti OL 30 2- 5- 00 IC 63 ER ve IN 68 20 20 22 10 10 PH DUARTE HF 0 AR HN A MA G 90 CY MC LL G C IN CHO LE R ME 00 09 11 3 60 30 CL 22 CO Ac TO 09 -0 -0 .0 IN 26 OP ti KS 30 3- 5- 00 IC 58 ER ve OL 73 20 20 OL 31 10 10 PH DUARTE 0 AR HN TA MA G RT CY RA TE LL C 50 MG TA B 00 10 11 4 30 30 CL 22 CO Ac 07 -0 -0 .0 IN 43 OP ti 80 4- 5- 00 IC 04 ER ve 42 20 20 01 10 10 PH DUARTE 5 AR HN MA G CY LL C DI 00 11 11 0 90 30 CL 22 CO Ac AZ 59 -0 -0 .0 IN 62 OP ti EP 15 5- 5- 00 IC 97 ER ve AM 61 20 20 5 91 10 10 PH DUARTE 0 AR HN MG MA G CY TA BL LL ET C VY 66 06 11 5 30 30 CL 21 CO Ac TO 58 -0 -0 .0 IN 73 OP ti RI 20 1- 5- 00 IC 39 ER ve N 31 20 20 10 35 10 10 PH DUARTE -4 4 AR HN 0 MA G MG CY TA LL BL C ET ME 68 08 11 3 60 30 CL 22 CO Ac LO 18 -0 -0 .0 IN 06 OP ti XI 00 2- 5- 00 IC 59 ER ve CA 50 20 20 M 10 10 10 PH DUARTE 7. 1 AR HN 5 MA G MG CY TA LL BL C ET LI 68 08 11 5 30 30 CL 22 CO Ac SI 18 -0 -0 .0 IN 06 OP ti NO 00 2- 5- 00 IC 60 ER ve KS 51 20 20 [place] 20 10 10 PH DUARTE 2 AR HN 2. MA G 5 CY MG LL TA C BL ET PO 62 08 11 5 30 30 CL 22 CO Ac TA 03 -0 -0 .0 IN 06 OP ti SS 70 2- 5- 00 IC 61 ER ve IU 99 20 20 M 90 10 10 PH DUARTE CL 5 AR HN MA G ER CY 20 LL C ME Q TA BL ET VY 66 06 10 5 30 30 CL 21 CO Ac TO 58 -0 -0 .0 IN 73 OP ti RI 20 1- 4- 00 IC 39 ER ve N 31 20 20 10 33 10 10 PH DUARTE -4 1 AR HN 0 MA G MG CY TA LL BL C ET ME 68 08 10 3 60 30 CL 22 CO Ac LO 18 -0 -0 .0 IN 06 OP ti XI 00 2- 4- 00 IC 59 ER ve CA 50 20 20 M 10 10 10 PH DUARTE 7. 1 AR HN 5 MA G MG CY TA LL BL C ET LI 00 08 10 5 30 30 CL 22 CO Ac SI 37 -0 -0 .0 IN 06 OP ti NO 82 2- 4- 00 IC 60 ER ve KS 07 20 20 IL 20 10 10 PH DUARTE 1 AR HN 2. MA G 5 CY MG LL TA C BL ET PO 62 08 10 5 30 30 CL 22 CO Ac TA 03 -0 -0 .0 IN 06 OP ti SS 70 2- 4- 00 IC 61 ER ve IU 99 20 20 M 90 10 10 PH DUARTE CL 5 AR HN MA G ER CY 20 LL C ME Q TA BL ET 37 08 10 5 30 30 CL 22 CO Ac PI 20 -0 -0 .0 IN 06 OP ti RI 50 2- 4- 00 IC 62 ER ve N 42 20 20 EC 99 10 10 PH DUARTE 6 AR HN 32 MA G 5 CY MG LL TA C BL ET VE 00 08 10 5 18 25 CL 22 CO Ac NT 17 -0 -0 .0 IN 06 OP ti OL 30 2- 4- 00 IC 63 ER ve IN 68 20 20 22 10 10 PH DUARTE HF 0 AR HN A MA G 90 CY MC LL G C IN CHO LE R ME 00 09 10 3 60 30 CL 22 CO Ac TO 09 -0 -0 .0 IN 26 OP ti KS 30 3- 4- 00 IC 58 ER ve OL 73 20 20 OL 31 10 10 PH DUARTE 0 AR HN TA MA G RT CY RA TE LL C 50 MG TA B DI 00 09 10 1 90 30 CL 22 CO Ac AZ 59 -0 -0 .0 IN 27 OP ti EP 15 7- 4- 00 IC 06 ER ve AM 61 20 20 5 91 10 10 PH DUARTE 0 AR HN MG MA G CY TA BL LL ET C 00 10 10 4 30 30 CL 22 CO Ac 07 -0 -0 .0 IN 43 OP ti 80 4- 4- 00 IC 04 ER ve 42 20 20 01 10 10 PH DUARTE 5 AR HN MA G CY LL C DI 00 09 09 1 90 30 CL 22 CO Ac AZ 59 -0 -0 .0 IN 27 OP ti EP 15 7- 7- 00 IC 06 ER ve AM 61 20 20 5 91 10 10 PH DUARTE 0 AR HN MG MA G CY TA BL LL ET C ME 00 09 09 3 60 30 CL 22 CO Ac TO 09 -0 -0 .0 IN 26 OP ti KS 30 3- 3- 00 IC 58 ER ve OL 73 20 20 OL 31 10 10 PH DUARTE 0 AR HN TA MA G RT CY RA TE LL C 50 MG TA B PO 62 08 09 5 30 30 CL 22 CO Ac TA 03 -0 -0 .0 IN 06 OP ti SS 70 2- 2- 00 IC 61 ER ve IU 99 20 20 M 90 10 10 PH DUARTE CL 5 AR HN MA G ER CY 20 LL C ME Q TA BL ET 37 08 09 5 30 30 CL 22 CO Ac PI 20 -0 -0 .0 IN 06 OP ti RI 50 2- 2- 00 IC 62 ER ve N 42 20 20 EC 99 10 10 PH DUARTE 6 AR HN 32 MA G 5 CY MG LL TA C BL ET VE 00 08 09 5 18 25 CL 22 CO Ac NT 17 -0 -0 .0 IN 06 OP ti OL 30 2- 2- 00 IC 63 ER ve IN 68 20 20 22 10 10 PH DUARTE HF 0 AR HN A MA G 90 CY MC LL G C IN CHO LE R 00 02 09 5 30 30 CL 21 CO Ac 07 -0 -0 .0 IN 01 OP ti 80 4- 2- 00 IC 52 ER ve 42 20 20 01 10 10 PH DUARTE 5 AR HN MA G CY LL C VY 66 06 09 5 30 30 CL 21 CO Ac TO 58 -0 -0 .0 IN 73 OP ti RI 20 1- 2- 00 IC 39 ER ve N 31 20 20 10 33 10 10 PH DUARTE -4 1 AR HN 0 MA G MG CY TA LL BL C ET ME 68 08 09 3 60 30 CL 22 CO Ac LO 18 -0 -0 .0 IN 06 OP ti XI 00 2- 2- 00 IC 59 ER ve CA 50 20 20 M 10 10 10 PH DUARTE 7. 1 AR HN 5 MA G MG CY TA LL BL C ET LI 00 08 09 5 30 30 CL 22 CO Ac SI 37 -0 -0 .0 IN 06 OP ti NO 82 2- 2- 00 IC 60 ER ve KS 07 20 20 IL 20 10 10 PH DUARTE 1 AR HN 2. MA G 5 CY MG LL TA C BL ET 00 08 08 0 12 3 CL 22 RU Ac 40 -1 -1 .0 IN 11 SH ti 60 0- 0- 00 IC 19 ve 35 20 20 NE 70 10 10 PH IL 5 AR C MA CY LL C 37 08 08 5 30 30 CL 22 CO Ac PI 20 -0 -0 .0 IN 06 OP ti RI 50 2- 2- 00 IC 62 ER ve N 42 20 20 EC 99 10 10 PH DUARTE 6 AR HN 32 MA G 5 CY MG LL TA C BL ET VE 00 08 08 5 18 25 CL 22 CO Ac NT 17 -0 -0 .0 IN 06 OP ti OL 30 2- 2- 00 IC 63 ER ve IN 68 20 20 22 10 10 PH DUARTE HF 0 AR HN A MA G 90 CY MC LL G C IN CHO LE R ME 00 04 08 3 60 30 CL 21 CO Ac TO 09 -3 -0 .0 IN 54 OP ti KS 30 0- 2- 00 IC 96 ER ve OL 73 20 20 OL 31 10 10 PH DUARTE 0 AR HN TA MA G RT CY RA TE LL C 50 MG TA B VY 66 06 08 5 30 30 CL 21 CO Ac TO 58 -0 -0 .0 IN 73 OP ti RI 20 1- 2- 00 IC 39 ER ve N 31 20 20 10 33 10 10 PH DUARTE -4 1 AR HN 0 MA G MG CY TA LL BL C ET DI 00 07 08 1 90 30 CL 21 CO Ac AZ 59 -0 -0 .0 IN 90 OP ti EP 15 2- 2- 00 IC 99 ER ve AM 61 20 20 5 91 10 10 PH DUARTE 0 AR HN MG MA G CY TA BL LL ET C ME 68 08 08 3 60 30 CL 22 CO Ac LO 18 -0 -0 .0 IN 06 OP ti XI 00 2- 2- 00 IC 59 ER ve CA 50 20 20 M 10 10 10 PH DUARTE 7. 1 AR HN 5 MA G MG CY TA LL BL C ET LI 00 08 08 5 30 30 CL 22 CO Ac SI 37 -0 -0 .0 IN 06 OP ti NO 82 2- 2- 00 IC 60 ER ve KS 07 20 20 IL 20 10 10 PH DUARTE 1 AR HN 2. MA G 5 CY MG LL TA C BL ET PO 00 08 08 5 30 30 CL 22 CO Ac TA 78 -0 -0 .0 IN 06 OP ti SS 15 2- 2- 00 IC 61 ER ve IU 72 20 20 M 01 10 10 PH DUARTE CL 0 AR HN MA G ER CY 20 LL C ME Q TA BL ET 00 08 08 0 30 30 CL 22 AD Ac 07 -0 -0 .0 IN 06 KI ti 80 2- 2- 00 IC 85 NS ve 42 20 20 01 10 10 PH TI 5 AR MO MA TH CY Y D LL C PE 00 07 07 0 40 10 CL 21 RU Ac NI 78 -0 -0 .0 IN 93 SH ti CI 11 6- 7- 00 IC 41 ve LL 20 20 20 NE IN 50 10 10 PH IL 1 AR C VK MA CY 25 0 LL MG C TA BL ET DI 00 07 07 1 90 30 CL 21 CO Ac AZ 59 -0 -0 .0 IN 90 OP ti EP 15 2- 2- 00 IC 99 ER ve AM 61 20 20 5 91 10 10 PH DUARTE 0 AR HN MG MA G CY TA BL LL ET C PO 00 01 07 5 30 30 CL 20 CO Ac TA 78 -1 -0 .0 IN 85 OP ti SS 15 1- 1- 00 IC 33 ER ve IU 72 20 20 M 01 10 10 PH DUARTE CL 0 AR HN MA G ER CY 20 LL C ME Q TA BL ET 37 01 07 5 30 30 CL 20 CO Ac PI 20 -1 -0 .0 IN 85 OP ti RI 50 1- 1- 00 IC 34 ER ve N 42 20 20 EC 99 10 10 PH DUARTE 6 AR HN 32 MA G 5 CY MG LL TA C BL ET LI 00 01 07 5 30 30 CL 20 CO Ac SI 17 -1 -0 .0 IN 85 OP ti NO 23 1- 1- 00 IC 35 ER ve KS 75 20 20 IL 76 10 10 PH DUARTE 0 AR HN 2. MA G 5 CY MG LL TA C BL ET VE 00 01 07 5 18 25 CL 20 CO Ac NT 17 -1 -0 .0 IN 85 OP ti OL 30 1- 1- 00 IC 36 ER ve IN 68 20 20 22 10 10 PH DUARTE HF 0 AR HN A MA G 90 CY MC LL G C IN CHO LE R ME 68 03 07 3 60 30 CL 21 CO Ac LO 18 -1 -0 .0 IN 25 OP ti XI 00 2- 1- 00 IC 10 ER ve CA 50 20 20 M 10 10 10 PH DUARTE 7. 1 AR HN 5 MA G MG CY TA LL BL C ET ME 00 04 07 3 60 30 CL 21 CO Ac TO 09 -3 -0 .0 IN 54 OP ti KS 30 0- 1- 00 IC 96 ER ve OL 73 20 20 OL 31 10 10 PH DUARTE 0 AR HN TA MA G RT CY RA TE LL C 50 MG TA B VY 66 06 07 5 30 30 CL 21 CO Ac TO 58 -0 -0 .0 IN 73 OP ti RI 20 1- 1- 00 IC 39 ER ve N 31 20 20 10 33 10 10 PH DUARTE -4 1 AR HN 0 MA G MG CY TA LL BL C ET 00 01 07 5 30 30 CL 20 AD Ac 07 -1 -0 .0 IN 88 KI ti 80 5- 1- 00 IC 25 NS ve 42 20 20 01 10 10 PH TI 5 AR MO MA TH CY Y D LL C DI 00 06 06 0 90 30 CL 21 CO Ac AZ 59 -0 -0 .0 IN 74 OP ti EP 15 2- 2- 00 IC 50 ER ve AM 61 20 20 5 91 10 10 PH DUARTE 0 AR HN MG MA G CY TA BL LL ET C PO 00 01 06 5 30 30 CL 20 CO Ac TA 78 -1 -0 .0 IN 85 OP ti SS 15 1- 1- 00 IC 33 ER ve IU 72 20 20 M 01 10 10 PH DUARTE CL 0 AR HN MA G ER CY 20 LL C ME Q TA BL ET 37 01 06 5 30 30 CL 20 CO Ac PI 20 -1 -0 .0 IN 85 OP ti RI 50 1- 1- 00 IC 34 ER ve N 42 20 20 EC 99 10 10 PH DUARTE 6 AR HN 32 MA G 5 CY MG LL TA C BL ET LI 00 01 06 5 30 30 CL 20 CO Ac SI 17 -1 -0 .0 IN 85 OP ti NO 23 1- 1- 00 IC 35 ER ve KS 75 20 20 IL 76 10 10 PH DUARTE 0 AR HN 2. MA G 5 CY MG LL TA C BL ET VE 00 01 06 5 18 25 CL 20 CO Ac NT 17 -1 -0 .0 IN 85 OP ti OL 30 1- 1- 00 IC 36 ER ve IN 68 20 20 22 10 10 PH DUARTE HF 0 AR HN A MA G 90 CY MC LL G C IN CHO LE R ME 68 03 06 3 60 30 CL 21 CO Ac LO 18 -1 -0 .0 IN 25 OP ti XI 00 2- 1- 00 IC 10 ER ve CA 50 20 20 M 10 10 10 PH DUARTE 7. 1 AR HN 5 MA G MG CY TA LL BL C ET ME 00 04 06 3 60 30 CL 21 CO Ac TO 09 -3 -0 .0 IN 54 OP ti KS 30 0- 1- 00 IC 96 ER ve OL 73 20 20 OL 31 10 10 PH DUARTE 0 AR HN TA MA G RT CY RA TE LL C 50 MG TA B 00 01 06 5 30 30 CL 20 AD Ac 07 -1 -0 .0 IN 88 KI ti 80 5- 1- 00 IC 25 NS ve 42 20 20 01 10 10 PH TI 5 AR MO MA TH CY Y D LL C VY 66 06 06 5 30 30 CL 21 CO Ac TO 58 -0 -0 .0 IN 73 OP ti RI 20 1- 1- 00 IC 39 ER ve N 31 20 20 10 33 10 10 PH DUARTE -4 1 AR HN 0 MA G MG CY TA LL BL C ET CL 00 05 05 2 30 10 CL 21 CO Ac OT 90 -0 -0 .0 IN 56 OP ti RI 47 3- 3- 00 IC 38 ER ve MA 82 20 20 ZO 23 10 10 PH DUARTE LE 1 AR HN MA G 1% CY CR LL EA C M DI 00 04 04 0 90 30 CL 21 CO Ac AZ 59 -3 -3 .0 IN 54 OP ti EP 15 0- 0- 00 IC 97 ER ve AM 61 20 20 5 91 10 10 PH DUARTE 0 AR HN MG MA G CY TA BL LL ET C VY 66 04 04 0 30 30 CL 21 CO Ac TO 58 -3 -3 .0 IN 55 OP ti RI 20 0- 0- 00 IC 00 ER ve N 31 20 20 10 33 10 10 PH DUARTE -4 1 AR HN 0 MA G MG CY TA LL BL C ET ME 00 04 04 3 60 30 CL 21 CO Ac TO 09 -3 -3 .0 IN 54 OP ti KS 30 0- 0- 00 IC 96 ER ve OL 73 20 20 OL 31 10 10 PH DUARTE 0 AR HN TA MA G RT CY RA TE LL C 50 MG TA B PO 62 01 04 5 30 30 CL 20 CO Ac TA 03 -1 -2 .0 IN 85 OP ti SS 70 1- 9- 00 IC 33 ER ve IU 99 20 20 M 90 10 10 PH DUARTE CL 5 AR HN MA G ER CY 20 LL C ME Q TA BL ET 37 01 04 5 30 30 CL 20 CO Ac PI 20 -1 -2 .0 IN 85 OP ti RI 50 1- 9- 00 IC 34 ER ve N 42 20 20 EC 99 10 10 PH DUARTE 6 AR HN 32 MA G 5 CY MG LL TA C BL ET LI 00 01 04 5 30 30 CL 20 CO Ac SI 37 -1 -2 .0 IN 85 OP ti NO 82 1- 9- 00 IC 35 ER ve KS 07 20 20 IL 20 10 10 PH DUARTE 1 AR HN 2. MA G 5 CY MG LL TA C BL ET VE 00 01 04 5 18 25 CL 20 CO Ac NT 17 -1 -2 .0 IN 85 OP ti OL 30 1- 9- 00 IC 36 ER ve IN 68 20 20 22 10 10 PH DUARTE HF 0 AR HN A MA G 90 CY MC LL G C IN CHO LE R ME 68 03 04 3 60 30 CL 21 CO Ac LO 18 -1 -2 .0 IN 25 OP ti XI 00 2- 9- 00 IC 10 ER ve CA 50 20 20 M 10 10 10 PH DUARTE 7. 1 AR HN 5 MA G MG CY TA LL BL C ET 00 01 04 5 30 30 CL 20 AD Ac 07 -1 -2 .0 IN 88 KI ti 80 5- 9- 00 IC 25 NS ve 42 20 20 01 10 10 PH TI 5 AR MO MA TH CY Y D LL C DI 00 02 03 1 90 30 CL 21 CO Ac AZ 59 -1 -2 .0 IN 06 OP ti EP 15 3- 6- 00 IC 80 ER ve AM 61 20 20 5 91 10 10 PH DUARTE 0 AR HN MG MA G CY TA BL LL ET C CE 00 03 03 0 30 10 CL 21 NO Ac PH 09 -2 -2 .0 IN 33 RF ti AL 33 6- 6- 00 IC 97 LE ve EX 14 20 20 ET IN 70 10 10 PH R 1 AR 50 MA HE 0 CY NR MG Y LL CA C PS UL E KS 68 03 03 0 20 5 CL 21 NO Ac OM 38 -2 -2 .0 IN 33 RF ti ET 20 6- 6- 00 IC 98 LE ve CHO 04 20 20 ET ZI 10 10 10 PH R NE 1 AR MA HE 25 CY NR Y MG LL C TA BL ET 60 03 03 0 18 5 CL 21 NO Ac 25 -2 -2 0. IN 33 RF ti 80 6- 6- 00 IC 99 LE ve 41 20 20 0 ET 51 10 10 PH R 6 AR MA HE CY NR Y LL C VY 66 10 03 5 30 30 CL 20 CO Ac TO 58 -0 -1 .0 IN 22 OP ti RI 20 7- 2- 00 IC 13 ER ve N 31 20 20 10 33 09 10 PH DUARTE -4 1 AR HN 0 MA G MG CY TA LL BL C ET ME 00 10 03 5 30 30 CL 20 CO Ac TO 09 -0 -1 .0 IN 22 OP ti KS 30 7- 2- 00 IC 14 ER ve OL 73 20 20 OL 31 09 10 PH DUARTE 0 AR HN TA MA G RT CY RA TE LL C 50 MG TA B PO 62 01 03 5 30 30 CL 20 CO Ac TA 03 -1 -1 .0 IN 85 OP ti SS 70 1- 2- 00 IC 33 ER ve IU 99 20 20 M 90 10 10 PH DUARTE CL 5 AR HN MA G ER CY 20 LL C ME Q TA BL ET 37 01 03 5 30 30 CL 20 CO Ac PI 20 -1 -1 .0 IN 85 OP ti RI 50 1- 2- 00 IC 34 ER ve N 42 20 20 EC 99 10 10 PH DUARTE 6 AR HN 32 MA G 5 CY MG LL TA C BL ET LI 00 01 03 5 30 30 CL 20 CO Ac SI 37 -1 -1 .0 IN 85 OP ti NO 82 1- 2- 00 IC 35 ER ve KS 07 20 20 IL 20 10 10 PH DUARTE 1 AR HN 2. MA G 5 CY MG LL TA C BL ET VE 00 01 03 5 18 25 CL 20 CO Ac NT 17 -1 -1 .0 IN 85 OP ti OL 30 1- 2- 00 IC 36 ER ve IN 68 20 20 22 10 10 PH DUARTE HF 0 AR HN A MA G 90 CY MC LL G C IN CHO LE R ME 68 03 03 3 60 30 CL 21 CO Ac LO 18 -1 -1 .0 IN 25 OP ti XI 00 2- 2- 00 IC 10 ER ve CA 50 20 20 M 10 10 10 PH DUARTE 7. 1 AR HN 5 MA G MG CY TA LL BL C ET 00 01 03 5 30 30 CL 20 AD Ac 07 -1 -1 .0 IN 88 KI ti 80 5- 2- 00 IC 25 NS ve 42 20 20 01 10 10 PH TI 5 AR MO MA TH CY Y D LL C 00 01 02 01 30 30 CL 20 AD Ac 07 -1 -2 .0 IN 88 KI ti 80 5- 6- 00 IC 25 NS ve 42 20 20 01 10 10 PH TI 5 AR MO MA TH CY Y D 37 01 02 01 30 30 CL 20 CO Ac PI 20 -1 -2 .0 IN 85 OP ti RI 50 1- 6- 00 IC 34 ER ve N 42 20 20 EC 99 10 10 PH DUARTE 6 AR HN 32 MA G 5 CY MG TA BL ET ME 00 10 02 03 30 30 CL 20 CO Ac TO 09 -0 -2 .0 IN 22 OP ti KS 30 7- 6- 00 IC 14 ER ve OL 73 20 20 OL 31 09 10 PH DUARTE 0 AR HN TA MA G RT CY RA TE 50 MG TA B DI 00 02 02 00 90 30 CL 21 CO Ac AZ 59 -1 -2 .0 IN 06 OP ti EP 15 3- 6- 00 IC 80 ER ve AM 61 20 20 5 91 10 10 PH DUARTE 0 AR HN MG MA G CY TA BL ET LI 00 01 02 01 30 30 CL 20 CO Ac SI 37 -1 -2 .0 IN 85 OP ti NO 82 1- 6- 00 IC 35 ER ve KS 07 20 20 IL 20 10 10 PH DUARTE 1 AR HN 2. MA G 5 CY MG TA BL ET ME 68 10 02 03 60 30 CL 20 CO Ac LO 18 -2 -2 .0 IN 35 OP ti XI 00 8- 6- 00 IC 78 ER ve CA 50 20 20 M 10 09 10 PH DUARTE 7. 1 AR HN 5 MA G MG CY TA BL ET VY 66 10 02 03 30 30 CL 20 CO Ac TO 58 -0 -2 .0 IN 22 OP ti RI 20 7- 6- 00 IC 13 ER ve N 31 20 20 10 33 09 10 PH DUARTE -4 1 AR HN 0 MA G MG CY TA BL ET VE 00 01 02 01 18 25 CL 20 CO Ac NT 17 -1 -2 .0 IN 85 OP ti OL 30 1- 6- 00 IC 36 ER ve IN 68 20 20 22 10 10 PH DUARTE HF 0 AR HN A MA G 90 CY MC G IN CHO LE R PO 00 01 02 01 30 30 CL 20 CO Ac TA 78 -1 -2 .0 IN 85 OP ti SS 15 1- 6- 00 IC 33 ER ve IU 72 20 20 M 01 10 10 PH DUARTE CL 0 AR HN MA G ER CY 20 ME Q TA BL ET CI 00 02 02 00 15 30 CL 21 CO Ac TA 37 -0 -1 .0 IN 01 OP ti LO 86 4- 1- 00 IC 51 ER ve KS 23 20 20 AM 30 10 10 PH DUARTE 1 AR HN HB MA G R CY 40 MG TA BL ET TR 00 02 02 00 45 15 CL 21 CO Ac IA 16 -0 -1 .0 IN 01 OP ti MC 80 4- 1- 00 IC 53 ER ve IN 00 20 20 OL 31 10 10 PH DUARTE ON 5 AR HN E MA G 0. CY 02 5% CR EA M ME 00 10 01 02 30 30 CL 20 CO Ac TO 09 -0 -2 .0 IN 22 OP ti KS 30 7- 8- 00 IC 14 ER ve OL 73 20 20 OL 31 09 10 PH DUARTE 0 AR HN TA MA G RT CY RA TE 50 MG TA B ME 68 10 01 02 60 30 CL 20 CO Ac LO 18 -2 -2 .0 IN 35 OP ti XI 00 8- 8- 00 IC 78 ER ve CA 50 20 20 M 10 09 10 PH DUARTE 7. 1 AR HN 5 MA G MG CY TA BL ET LI 00 01 01 00 30 30 CL 20 CO Ac SI 37 -1 -2 .0 IN 85 OP ti NO 82 1- 8- 00 IC 35 ER ve KS 07 20 20 IL 20 10 10 PH DUARTE 1 AR HN 2. MA G 5 CY MG TA BL ET 37 01 01 00 30 30 CL 20 CO Ac PI 20 -1 -2 .0 IN 85 OP ti RI 50 1- 8- 00 IC 34 ER ve N 42 20 20 EC 99 10 10 PH DUARTE 6 AR HN 32 MA G 5 CY MG TA BL ET VE 00 01 01 00 18 25 CL 20 CO Ac NT 17 -1 -2 .0 IN 85 OP ti OL 30 1- 8- 00 IC 36 ER ve IN 68 20 20 22 10 10 PH DUARTE HF 0 AR HN A MA G 90 CY MC G IN CHO LE R PO 62 01 01 00 30 30 CL 20 CO Ac TA 03 -1 -2 .0 IN 85 OP ti SS 70 1- 8- 00 IC 33 ER ve IU 99 20 20 M 90 10 10 PH DUARTE CL 5 AR HN MA G ER CY 20 ME Q TA BL ET 00 01 01 00 30 30 CL 20 AD Ac 07 -1 -2 .0 IN 88 KI ti 80 5- 8- 00 IC 25 NS ve 42 20 20 01 10 10 PH TI 5 AR MO MA TH CY Y D DI 00 11 01 02 90 30 CL 20 CO Ac AZ 59 -1 -2 .0 IN 46 OP ti EP 15 2- 8- 00 IC 27 ER ve AM 61 20 20 5 91 09 10 PH DUARTE 0 AR HN MG MA G CY TA BL ET VY 66 10 01 02 30 30 CL 20 CO Ac TO 58 -0 -2 .0 IN 22 OP ti RI 20 7- 8- 00 IC 13 ER ve N 31 20 20 10 33 09 10 PH DUARTE -4 1 AR HN 0 MA G MG CY TA BL ET DI 00 11 12 01 90 30 CL 20 CO Ac AZ 59 -1 -3 .0 IN 46 OP ti EP 15 2- 1- 00 IC 27 ER ve AM 61 20 20 5 91 09 09 PH DUARTE 0 AR HN MG MA G CY TA BL ET VE 00 06 12 05 18 25 CL 19 CO Ac NT 17 -0 -1 .0 IN 52 OP ti OL 30 9- 7- 00 IC 59 ER ve IN 68 20 20 22 09 09 PH DUARTE HF 0 AR HN A MA G 90 CY MC G IN CHO LE R ME 68 10 12 01 60 30 CL 20 CO Ac LO 18 -2 -1 .0 IN 35 OP ti XI 00 8- 7- 00 IC 78 ER ve CA 50 20 20 M 10 09 09 PH DUARTE 7. 1 AR HN 5 MA G MG CY TA BL ET LI 00 06 12 05 30 30 CL 19 CO Ac SI 37 -0 -1 .0 IN 52 OP ti NO 82 9- 7- 00 IC 58 ER ve KS 07 20 20 IL 20 09 09 PH DUARTE 1 AR HN 2. MA G 5 CY MG TA BL ET PO 62 06 12 05 30 30 CL 19 CO Ac TA 03 -0 -1 .0 IN 52 OP ti SS 70 9- 7- 00 IC 60 ER ve IU 99 20 20 M 90 09 09 PH DUARTE CL 5 AR HN MA G ER CY 20 ME Q TA BL ET 37 06 12 05 30 30 CL 19 CO Ac PI 20 -0 -1 .0 IN 52 OP ti RI 50 9- 7- 00 IC 61 ER ve N 42 20 20 EC 99 09 09 PH DUARTE 6 AR HN 32 MA G 5 CY MG TA BL ET VY 66 10 12 01 30 30 CL 20 CO Ac TO 58 -0 -1 .0 IN 22 OP ti RI 20 7- 7- 00 IC 13 ER ve N 31 20 20 10 33 09 09 PH DUARTE -4 1 AR HN 0 MA G MG CY TA BL ET ME 00 10 12 01 30 30 CL 20 CO Ac TO 09 -0 -1 .0 IN 22 OP ti KS 30 7- 7- 00 IC 14 ER ve OL 73 20 20 OL 31 09 09 PH DUARTE 0 AR HN TA MA G RT CY RA TE 50 MG TA B KS 68 12 12 00 10 3 CL 20 WE Ac OM 38 -0 -1 .0 IN 62 HR ti ET 20 6- 7- 00 IC 29 MA ve CHO 04 20 20 N ZI 10 09 09 PH II NE 1 AR I MA WI 25 CY LL IA MG M E TA BL ET TURNER 53 12 12 00 12 6 CL 20 WE Ac LF 74 -0 -1 .0 IN 62 HR ti AM 60 7- 7- 00 IC 30 MA ve ET 27 20 20 N HO 20 09 09 PH II XA 1 AR I ZO MA WI LE CY LL -T IA MP M E DS TA BL ET 37 06 11 04 30 30 CL 19 CO Ac PI 20 -0 -1 .0 IN 52 OP ti RI 50 9- 9- 00 IC 61 ER ve N 42 20 20 EC 99 09 09 PH DUARTE 6 AR HN 32 MA G 5 CY MG TA BL ET VY 66 10 11 00 30 30 CL 20 CO Ac TO 58 -0 -1 .0 IN 22 OP ti RI 20 7- 9- 00 IC 13 ER ve N 31 20 20 10 33 09 09 PH DUARTE -4 1 AR HN 0 MA G MG CY TA BL ET ME 00 10 11 00 30 30 CL 20 CO Ac TO 09 -0 -1 .0 IN 22 OP ti KS 30 7- 9- 00 IC 14 ER ve OL 73 20 20 OL 31 09 09 PH DUARTE 0 AR HN TA MA G RT CY RA TE 50 MG TA B LI 00 06 11 04 30 30 CL 19 CO Ac SI 37 -0 -1 .0 IN 52 OP ti NO 82 9- 9- 00 IC 58 ER ve KS 07 20 20 IL 20 09 09 PH DUARTE 1 AR HN 2. MA G 5 CY MG TA BL ET PO 00 06 11 04 30 30 CL 19 CO Ac TA 78 -0 -1 .0 IN 52 OP ti SS 15 9- 9- 00 IC 60 ER ve IU 72 20 20 M 01 09 09 PH DUARTE CL 0 AR HN MA G ER CY 20 ME Q TA BL ET VE 00 06 11 04 18 25 CL 19 CO Ac NT 17 -0 -1 .0 IN 52 OP ti OL 30 9- 9- 00 IC 59 ER ve IN 68 20 20 22 09 09 PH DUARTE HF 0 AR HN A MA G 90 CY MC G IN CHO LE R DI 00 11 11 00 90 30 CL 20 CO Ac AZ 59 -1 -1 .0 IN 46 OP ti EP 15 2- 9- 00 IC 27 ER ve AM 61 20 20 5 91 09 09 PH DUARTE 0 AR HN MG MA G CY TA BL ET ME 68 10 11 00 60 30 CL 20 CO Ac LO 18 -2 -0 .0 IN 35 OP ti XI 00 8- 5- 00 IC 78 ER ve CA 50 20 20 M 10 09 09 PH DUARTE 7. 1 AR HN 5 MA G MG CY TA BL ET 37 06 10 03 30 30 CL 19 CO Ac PI 20 -0 -2 .0 IN 52 OP ti RI 50 9- 2- 00 IC 61 ER ve N 42 20 20 EC 99 09 09 PH DUARTE 6 AR HN 32 MA G 5 CY MG TA BL ET LI 68 06 10 03 30 30 CL 19 CO Ac SI 18 -0 -2 .0 IN 52 OP ti NO 00 9- 2- 00 IC 58 ER ve KS 51 20 20 IL 20 09 09 PH DUARTE 1 AR HN 2. MA G 5 CY MG TA BL ET CE 00 10 10 00 14 7 CL 20 CO Ac FD 78 -0 -2 .0 IN 22 OP ti IN 12 7- 2- 00 IC 10 ER ve IR 17 20 20 66 09 09 PH DUARTE 30 0 AR HN 0 MA G MG CY CA PS UL E DI 00 10 10 00 90 30 CL 20 CO Ac AZ 59 -0 -2 .0 IN 20 OP ti EP 15 5- 2- 00 IC 47 ER ve AM 61 20 20 5 91 09 09 PH DUARTE 0 AR HN MG MA G CY TA BL ET PO 00 06 10 03 30 30 CL 19 CO Ac TA 78 -0 -2 .0 IN 52 OP ti SS 15 9- 2- 00 IC 60 ER ve IU 72 20 20 M 00 09 09 PH DUARTE CL 1 AR HN MA G ER CY 20 ME Q TA BL ET VY 66 10 10 00 30 30 CL 20 CO Ac TO 58 -0 -2 .0 IN 20 OP ti RI 20 5- 2- 00 IC 40 ER ve N 31 20 20 10 33 09 09 PH DUARTE -4 1 AR HN 0 MA G MG CY TA BL ET VE 00 06 10 03 18 25 CL 19 CO Ac NT 17 -0 -2 .0 IN 52 OP ti OL 30 9- 2- 00 IC 59 ER ve IN 68 20 20 22 09 09 PH DUARTE HF 0 AR HN A MA G 90 CY MC G IN CHO LE R ME 00 10 10 00 30 30 CL 20 CO Ac TO 37 -0 -2 .0 IN 20 OP ti KS 80 5- 2- 00 IC 39 ER ve OL 03 20 20 OL 20 09 09 PH DUARTE 1 AR HN TA MA G RT CY RA TE 50 MG TA B 68 09 09 00 25 8 CL 20 NO Ac 46 -1 -2 .0 IN 07 RF ti 20 5- 4- 00 IC 70 LE ve 14 20 20 ET 64 09 09 PH R 5 AR MA HE CY NR Y ME 00 09 09 00 21 7 CL 20 NO Ac TH 60 -1 -2 .0 IN 07 RF ti OC 34 5- 4- 00 IC 69 LE ve AR 48 20 20 ET BA 62 09 09 PH R MO 1 AR L MA HE 75 CY NR 0 Y MG TA BL ET IN 00 09 09 00 21 7 CL 20 NO Ac DO 09 -1 -2 .0 IN 07 RF ti ME 34 5- 4- 00 IC 68 LE ve TH 02 20 20 ET AC 90 09 09 PH R IN 1 AR MA HE 25 CY NR Y MG CA PS UL E DI 00 07 09 01 90 30 CL 19 CO Ac AZ 59 -1 -1 .0 IN 71 OP ti EP 15 4- 0- 00 IC 90 ER ve AM 61 20 20 5 91 09 09 PH DUARTE 0 AR HN MG MA G CY TA BL ET PO 00 06 09 02 30 30 CL 19 CO Ac TA 78 -0 -1 .0 IN 52 OP ti SS 15 9- 0- 00 IC 60 ER ve IU 72 20 20 M 00 09 09 PH DUARTE CL 1 AR HN MA G ER CY 20 ME Q TA BL ET VE 00 06 09 02 18 25 CL 19 CO Ac NT 17 -0 -1 .0 IN 52 OP ti OL 30 9- 0- 00 IC 59 ER ve IN 68 20 20 22 09 09 PH DUARTE HF 0 AR HN A MA G 90 CY MC G IN CHO LE R LI 68 06 09 02 30 30 CL 19 CO Ac SI 18 -0 -1 .0 IN 52 OP ti NO 00 9- 0- 00 IC 58 ER ve KS 51 20 20 IL 20 09 09 PH DUARTE 1 AR HN 2. MA G 5 CY MG TA BL ET VY 66 09 09 00 30 30 CL 19 CO Ac TO 58 -0 -1 .0 IN 99 OP ti RI 20 1- 0- 00 IC 47 ER ve N 31 20 20 10 33 09 09 PH DUARTE -4 1 AR HN 0 MA G MG CY TA BL ET ME 00 09 09 00 30 30 CL 19 CO Ac TO 37 -0 -1 .0 IN 99 OP ti KS 80 1- 0- 00 IC 48 ER ve OL 03 20 20 OL 20 09 09 PH DUARTE 1 AR HN TA MA G RT CY RA TE 50 MG TA B 37 06 09 02 30 30 CL 19 CO Ac PI 20 -0 -1 .0 IN 52 OP ti RI 50 9- 0- 00 IC 61 ER ve N 42 20 20 EC 99 09 09 PH DUARTE 6 AR HN 32 MA G 5 CY MG TA BL ET VY 66 01 07 05 30 30 CL 18 CO Ac TO 58 -1 -3 .0 IN 59 OP ti RI 20 7- 0- 00 IC 68 ER ve N 31 20 20 10 33 09 09 PH DUARTE -4 1 AR HN 0 MA G MG CY TA BL ET PO 00 06 07 01 30 30 CL 19 CO Ac TA 78 -0 -3 .0 IN 52 OP ti SS 15 9- 0- 00 IC 60 ER ve IU 72 20 20 M 00 09 09 PH DUARTE CL 1 AR HN MA G ER CY 20 ME Q TA BL ET VE 00 06 07 01 18 25 CL 19 CO Ac NT 17 -0 -3 .0 IN 52 OP ti OL 30 9- 0- 00 IC 59 ER ve IN 68 20 20 22 09 09 PH DUARTE HF 0 AR HN A MA G 90 CY MC G IN CHO LE R 37 06 07 01 30 30 CL 19 CO Ac PI 20 -0 -3 .0 IN 52 OP ti RI 50 9- 0- 00 IC 61 ER ve N 42 20 20 EC 99 09 09 PH DUARTE 6 AR HN 32 MA G 5 CY MG TA BL ET LI 68 06 07 01 30 30 CL 19 CO Ac SI 18 -0 -3 .0 IN 52 OP ti NO 00 9- 0- 00 IC 58 ER ve KS 51 20 20 IL 20 09 09 PH DUARTE 1 AR HN 2. MA G 5 CY MG TA BL ET ME 00 01 07 05 30 30 CL 18 CO Ac TO 37 -1 -3 .0 IN 59 OP ti KS 80 7- 0- 00 IC 66 ER ve OL 03 20 20 OL 20 09 09 PH DUARTE 1 AR HN TA MA G RT CY RA TE 50 MG TA B DI 00 07 07 00 90 30 CL 19 CO Ac AZ 59 -1 -3 .0 IN 71 OP ti EP 15 4- 0- 00 IC 90 ER ve AM 61 20 20 5 91 09 09 PH DUARTE 0 AR HN MG MA G CY TA BL ET 00 07 07 00 10 3 CL 19 SO Ac 60 -1 -3 .0 IN 73 KA ti 35 6- 0- 00 IC 11 N ve 46 20 20 BA 62 09 09 PH BA 1 AR TU MA ND CY E O NA 53 07 07 00 10 5 CL 19 SO Ac KS 74 -1 -3 .0 IN 73 KA ti OX 60 6- 0- 00 IC 10 N ve EN 19 20 20 BA 00 09 09 PH BA 50 1 AR TU 0 MA ND MG CY E O TA BL ET CY 59 07 07 00 15 5 CL 19 SO Ac CL 74 -1 -3 .0 IN 73 KA ti OB 60 6- 0- 00 IC 12 N ve EN 17 20 20 BA ZA 70 09 09 PH BA KS 6 AR TU IN MA ND E CY E 10 O MG TA BL ET LI 68 06 06 00 30 30 CL 19 CO Ac SI 18 -0 -1 .0 IN 52 OP ti NO 00 9- 8- 00 IC 58 ER ve KS 51 20 20 [place] 20 09 09 PH DUARTE 1 AR HN 2. MA G 5 CY MG TA BL ET VE 00 06 06 00 18 25 CL 19 CO Ac NT 17 -0 -1 .0 IN 52 OP ti OL 30 9- 8- 00 IC 59 ER ve IN 68 20 20 22 09 09 PH DUARTE HF 0 AR HN A MA G 90 CY MC G IN CHO LE R 37 06 06 00 30 30 CL 19 CO Ac PI 20 -0 -1 .0 IN 52 OP ti RI 50 9- 8- 00 IC 61 ER ve N 42 20 20 EC 99 09 09 PH DUARTE 6 AR HN 32 MA G 5 CY MG TA BL ET VY 66 01 06 04 30 30 CL 18 CO Ac TO 58 -1 -1 .0 IN 59 OP ti RI 20 7- 8- 00 IC 68 ER ve N 31 20 20 10 33 09 09 PH DUARTE -4 1 AR HN 0 MA G MG CY TA BL ET PO 00 06 06 00 30 30 CL 19 CO Ac TA 78 -0 -1 .0 IN 52 OP ti SS 15 9- 8- 00 IC 60 ER ve IU 72 20 20 M 00 09 09 PH DUARTE CL 1 AR HN MA G ER CY 20 ME Q TA BL ET ME 00 01 06 04 30 30 CL 18 CO Ac TO 37 -1 -1 .0 IN 59 OP ti KS 80 7- 8- 00 IC 66 ER ve OL 03 20 20 OL 20 09 09 PH DUARTE 1 AR HN TA MA G RT CY RA TE 50 MG TA B DI 00 05 06 01 90 30 CL 19 CO Ac AZ 59 -1 -1 .0 IN 34 OP ti EP 15 1- 8- 00 IC 45 ER ve AM 61 20 20 5 91 09 09 PH DUARTE 0 AR HN MG MA G CY TA BL ET 00 11 05 05 30 30 CL 18 CO Ac 08 -1 -2 .0 IN 22 OP ti 51 9- 1- 00 IC 52 ER ve 71 20 20 80 08 09 PH DUARTE 2 AR HN MA G CY DI 00 05 05 00 90 30 CL 19 CO Ac AZ 59 -1 -2 .0 IN 34 OP ti EP 15 1- 1- 00 IC 45 ER ve AM 61 20 20 5 91 09 09 PH DUARTE 0 AR HN MG MA G CY TA BL ET ME 00 01 05 03 30 30 CL 18 CO Ac TO 37 -1 -2 .0 IN 59 OP ti KS 80 7- 1- 00 IC 66 ER ve OL 03 20 20 OL 20 09 09 PH DUARTE 1 AR HN TA MA G RT CY RA TE 50 MG TA B VY 66 01 05 03 30 30 CL 18 CO Ac TO 58 -1 -2 .0 IN 59 OP ti RI 20 7- 1- 00 IC 68 ER ve N 31 20 20 10 33 09 09 PH DUARTE -4 1 AR HN 0 MA G MG CY TA BL ET 00 12 05 04 30 30 CL 18 AD Ac 07 -0 -2 .0 IN 30 KI ti 80 2- 1- 00 IC 51 NS ve 42 20 20 01 08 09 PH TI 5 AR MO MA TH CY Y D NI 00 05 05 00 14 7 CL 19 CHO Ac TR 37 -1 -2 .0 IN 35 MM ti OF 83 2- 1- 00 IC 77 ON ve UR 42 20 20 D AN 20 09 09 PH KA TO 1 AR TH IN MA AR CY IN MO E NO Y -M CR 10 0 MG LI 68 12 05 04 30 30 CL 18 CO Ac SI 18 -2 -2 .0 IN 44 OP ti NO 00 3- 1- 00 IC 10 ER ve KS 51 20 20 [place] 20 08 09 PH DUARTE 1 AR HN 2. MA G 5 CY MG TA BL ET 37 11 05 05 30 30 CL 18 CO Ac PI 20 -1 -2 .0 IN 22 OP ti RI 50 9- 1- 00 IC 53 ER ve N 42 20 20 EC 99 08 09 PH DUARTE 6 AR HN 32 MA G 5 CY MG TA BL ET VE 00 11 05 05 18 25 CL 18 CO Ac NT 17 -1 -2 .0 IN 18 OP ti OL 30 3- 1- 00 IC 07 ER ve IN 68 20 20 22 08 09 PH DUARTE HF 0 AR HN A MA G 90 CY MC G IN CHO LE R 00 12 04 03 30 30 CL 18 AD Ac 07 -0 -2 .0 IN 30 KI ti 80 2- 3- 00 IC 51 NS ve 42 20 20 01 08 09 PH TI 5 AR MO MA TH CY Y D DI 00 02 04 01 90 30 CL 18 CO Ac AZ 59 -1 -2 .0 IN 77 OP ti EP 15 7- 3- 00 IC 53 ER ve AM 61 20 20 5 91 09 09 PH DUARTE 0 AR HN MG MA G CY TA BL ET 37 11 03 04 30 30 CL 18 CO Ac PI 20 -1 -2 .0 IN 22 OP ti RI 50 9- 6- 00 IC 53 ER ve N 42 20 20 EC 99 08 09 PH DUARTE 6 AR HN 32 MA G 5 CY MG TA BL ET 00 11 03 04 30 30 CL 18 CO Ac 08 -1 -2 .0 IN 22 OP ti 51 9- 6- 00 IC 52 ER ve 71 20 20 80 08 09 PH DUARTE 2 AR HN MA G CY ME 00 01 03 02 30 30 CL 18 CO Ac TO 37 -1 -2 .0 IN 59 OP ti KS 80 7- 6- 00 IC 66 ER ve OL 03 20 20 OL 20 09 09 PH DUARTE 1 AR HN TA MA G RT CY RA TE 50 MG TA B VY 66 01 03 02 30 30 CL 18 CO Ac TO 58 -1 -2 .0 IN 59 OP ti RI 20 7- 6- 00 IC 68 ER ve N 31 20 20 10 33 09 09 PH DUARTE -4 1 AR HN 0 MA G MG CY TA BL ET LI 68 12 03 03 30 30 CL 18 CO Ac SI 18 -2 -2 .0 IN 44 OP ti NO 00 3- 6- 00 IC 10 ER ve KS 51 20 20 [place] 20 08 09 PH DUARTE 1 AR HN 2. MA G 5 CY MG TA BL ET VE 00 11 03 04 18 25 CL 18 CO Ac NT 17 -1 -2 .0 IN 18 OP ti OL 30 3- 6- 00 IC 07 ER ve IN 68 20 20 22 08 09 PH DUARTE HF 0 AR HN A MA G 90 CY MC G IN CHO LE R 37 11 02 03 30 30 CL 18 CO Ac PI 20 -1 -2 .0 IN 22 OP ti RI 50 9- 6- 00 IC 53 ER ve N 42 20 20 EC 99 08 09 PH DUARTE 6 AR HN 32 MA G 5 CY MG TA BL ET DI 00 02 02 00 90 30 CL 18 CO Ac AZ 59 -1 -2 .0 IN 77 OP ti EP 15 7- 6- 00 IC 53 ER ve AM 61 20 20 5 91 09 09 PH DUARTE 0 AR HN MG MA G CY TA BL ET VE 00 11 02 03 18 25 CL 18 CO Ac NT 17 -1 -2 .0 IN 18 OP ti OL 30 3- 6- 00 IC 07 ER ve IN 68 20 20 22 08 09 PH DUARTE HF 0 AR HN A MA G 90 CY MC G IN CHO LE R VY 66 01 02 01 30 30 CL 18 CO Ac TO 58 -1 -2 .0 IN 59 OP ti RI 20 7- 6- 00 IC 68 ER ve N 31 20 20 10 33 09 09 PH DUARTE -4 1 AR HN 0 MA G MG CY TA BL ET ME 00 01 02 01 30 30 CL 18 CO Ac TO 37 -1 -2 .0 IN 59 OP ti KS 80 7- 6- 00 IC 66 ER ve OL 03 20 20 OL 20 09 09 PH DUARTE 1 AR HN TA MA G RT CY RA TE 50 MG TA B LI 68 12 02 02 30 30 CL 18 CO Ac SI 18 -2 -2 .0 IN 44 OP ti NO 00 3- 6- 00 IC 10 ER ve KS 51 20 20 [place] 20 08 09 PH DUATRE 1 AR HN 2. MA G 5 CY MG TA BL ET PO 51 01 02 01 52 31 CL 18 CO Ac LY 99 -1 -2 7. IN 59 OP ti ET 10 7- 6- 00 IC 67 ER ve HY 45 20 20 0 LE 75 09 09 PH DUARTE NE 7 AR HN MA G GL CY YC OL 33 50 PO WD 00 11 02 03 30 30 CL 18 CO Ac 08 -1 -2 .0 IN 22 OP ti 51 9- 6- 00 IC 52 ER ve 71 20 20 80 08 09 PH DUARTE 2 AR HN MA G CY 00 12 02 02 30 30 CL 18 AD Ac 07 -0 -2 .0 IN 30 KI ti 80 2- 6- 00 IC 51 NS ve 42 20 20 01 08 09 PH TI 5 AR MO MA TH CY Y D PO 51 01 01 00 52 31 CL 18 CO Ac LY 99 -1 -3 7. IN 59 OP ti ET 10 7- 0- 00 IC 67 ER ve HY 45 20 20 0 LE 75 09 09 PH DUARTE NE 7 AR HN MA G GL CY YC OL 33 50 PO WD 00 12 01 01 30 30 CL 18 AD Ac 07 -0 -3 .0 IN 30 KI ti 80 2- 0- 00 IC 51 NS ve 42 20 20 01 08 09 PH TI 5 AR MO MA TH CY Y D 37 11 01 02 30 30 CL 18 CO Ac PI 20 -1 -3 .0 IN 22 OP ti RI 50 9- 0- 00 IC 53 ER ve N 42 20 20 EC 99 08 09 PH DUARTE 6 AR HN 32 MA G 5 CY MG TA BL ET LI 68 12 01 01 30 30 CL 18 CO Ac SI 18 -2 -3 .0 IN 44 OP ti NO 00 3- 0- 00 IC 10 ER ve KS 51 20 20 IL 20 08 09 PH DUARTE 1 AR HN 2. MA G 5 CY MG TA BL ET VE 00 11 01 02 18 25 CL 18 CO Ac NT 17 -1 -3 .0 IN 18 OP ti OL 30 3- 0- 00 IC 07 ER ve IN 68 20 20 22 08 09 PH DUARTE HF 0 AR HN A MA G 90 CY MC G IN CHO LE R DI 00 10 01 02 90 30 CL 18 CO Ac AZ 59 -2 -3 .0 IN 07 OP ti EP 15 9- 0- 00 IC 26 ER ve AM 61 20 20 5 91 08 09 PH DUARTE 0 AR HN MG MA G CY TA BL ET VY 66 01 01 00 30 30 CL 18 CO Ac TO 58 -1 -3 .0 IN 59 OP ti RI 20 7- 0- 00 IC 68 ER ve N 31 20 20 10 33 09 09 PH DUARTE -4 1 AR HN 0 MA G MG CY TA BL ET ME 00 01 01 00 30 30 CL 18 CO Ac TO 37 -1 -3 .0 IN 59 OP ti KS 80 7- 0- 00 IC 66 ER ve OL 03 20 20 OL 20 09 09 PH DUARTE 1 AR HN TA MA G RT CY RA TE 50 MG TA B 00 11 01 02 30 30 CL 18 CO Ac 08 -1 -3 .0 IN 22 OP ti 51 9- 0- 00 IC 52 ER ve 71 20 20 80 08 09 PH DUARTE 2 AR HN MA G CY LI 68 12 01 00 30 30 CL 18 CO Ac SI 18 -2 -0 .0 IN 44 OP ti NO 00 3- 1- 00 IC 10 ER ve KS 51 20 20 IL 20 08 09 PH DUARTE 1 AR HN 2. MA G 5 CY MG TA BL ET VY 66 10 01 02 30 30 CL 17 CHO Ac TO 58 -1 -0 .0 IN 98 MM ti RI 20 5- 1- 00 IC 95 ON ve N 31 20 20 D 10 33 08 09 PH KA -4 1 AR TH 0 MA AR MG CY IN E TA Y BL ET PO 51 10 01 02 52 31 CL 17 CHO Ac LY 99 -1 -0 7. IN 98 MM ti ET 10 5- 1- 00 IC 94 ON ve HY 45 20 20 0 D LE 75 08 09 PH KA NE 7 AR TH MA AR GL CY IN YC E OL Y 33 50 PO WD VE 00 11 01 01 18 25 CL 18 CO Ac NT 17 -1 -0 .0 IN 18 OP ti OL 30 3- 1- 00 IC 07 ER ve IN 68 20 20 22 08 09 PH DUARTE HF 0 AR HN A MA G 90 CY MC G IN CHO LE R 37 11 01 01 30 30 CL 18 CO Ac PI 20 -1 -0 .0 IN 22 OP ti RI 50 9- 1- 00 IC 53 ER ve N 42 20 20 EC 99 08 09 PH DUARTE 6 AR HN 32 MA G 5 CY MG TA BL ET ME 00 07 01 05 30 30 CL 17 CO Ac TO 37 -2 -0 .0 IN 47 OP ti KS 80 1- 1- 00 IC 62 ER ve OL 03 20 20 OL 20 08 09 PH DUARTE 1 AR HN TA MA G RT CY RA TE 50 MG TA B 00 11 01 01 30 30 CL 18 CO Ac 08 -1 -0 .0 IN 22 OP ti 51 9- 1- 00 IC 52 ER ve 71 20 20 80 08 09 PH DUARTE 2 AR HN MA G CY DI 00 10 12 01 90 30 CL 18 CO Ac AZ 59 -2 -1 .0 IN 07 OP ti EP 15 9- 8- 00 IC 26 ER ve AM 61 20 20 5 91 08 08 PH DUARTE 0 AR HN MG MA G CY TA BL ET 00 12 12 00 30 30 CL 18 AD Ac 07 -0 -1 .0 IN 30 KI ti 80 2- 8- 00 IC 51 NS ve 42 20 20 01 08 08 PH TI 5 AR MO MA TH CY Y D VY 66 10 12 01 30 30 CL 17 CHO Ac TO 58 -1 -0 .0 IN 98 MM ti RI 20 5- 4- 00 IC 95 ON ve N 31 20 20 D 10 33 08 08 PH KA -4 1 AR TH 0 MA AR MG CY IN E TA Y BL ET PO 51 10 12 01 52 31 CL 17 CHO Ac LY 99 -1 -0 7. IN 98 MM ti ET 10 5- 4- 00 IC 94 ON ve HY 45 20 20 0 D LE 75 08 08 PH KA NE 7 AR TH MA AR GL CY IN YC E OL Y 33 50 PO WD 00 11 12 00 30 30 CL 18 CO Ac 08 -1 -0 .0 IN 22 OP ti 51 9- 4- 00 IC 52 ER ve 71 20 20 80 08 08 PH DUARTE 2 AR HN MA G CY 37 11 12 00 30 30 CL 18 CO Ac PI 20 -1 -0 .0 IN 22 OP ti RI 50 9- 4- 00 IC 53 ER ve N 42 20 20 EC 99 08 08 PH DUARTE 6 AR HN 32 MA G 5 CY MG TA BL ET TR 00 11 12 00 20 5 CL 18 CO Ac AM 37 -1 -0 .0 IN 22 OP ti AD 84 9- 4- 00 IC 73 ER ve OL 15 20 20 10 08 08 PH DUARTE HC 5 AR HN L MA G 50 CY MG TA BL ET ME 00 07 12 04 30 30 CL 17 CO Ac TO 37 -2 -0 .0 IN 47 OP ti KS 80 1- 4- 00 IC 62 ER ve OL 03 20 20 OL 20 08 08 PH DUARTE 1 AR HN TA MA G RT CY RA TE 50 MG TA B LI 68 06 12 05 30 30 CL 17 CO Ac SI 18 -2 -0 .0 IN 29 OP ti NO 00 3- 4- 00 IC 67 ER ve KS 51 20 20 IL 20 08 08 PH DUARTE 1 AR HN 2. MA G 5 CY MG TA BL ET 68 11 11 00 25 30 CL 18 CO Ac 46 -0 -2 .0 IN 10 OP ti 20 3- 0- 00 IC 29 ER ve 14 20 20 64 08 08 PH DUARTE 5 AR HN MA G CY OV 51 11 11 00 59 2 CL 18 CO Ac ID 67 -1 -2 .0 IN 18 OP ti E 25 3- 0- 00 IC 03 ER ve 0. 27 20 20 5% 60 08 08 PH DUARTE 4 AR HN LO MA G TI CY ON 37 11 11 00 30 30 CL 18 CO Ac PI 20 -0 -2 .0 IN 14 OP ti RI 50 8- 0- 00 IC 75 ER ve N 42 20 20 EC 99 08 08 PH DUARTE 6 AR HN 32 MA G 5 CY MG TA BL ET FU 00 09 11 01 60 60 CL 17 CO Ac RO 37 -1 -2 .0 IN 80 OP ti SE 80 3- 0- 00 IC 04 ER ve MO 21 20 20 DE 61 08 08 PH DUARTE 0 AR HN 40 MA G CY MG TA BL ET VE 00 11 11 00 18 25 CL 18 CO Ac NT 17 -1 -2 .0 IN 18 OP ti OL 30 3- 0- 00 IC 07 ER ve IN 68 20 20 22 08 08 PH DUARTE HF 0 AR HN A MA G 90 CY MC G IN CHO LE R TR 00 11 11 00 45 10 CL 18 CO Ac IA 16 -1 -2 .0 IN 18 OP ti MC 80 3- 0- 00 IC 04 ER ve IN 00 20 20 OL 31 08 08 PH DUARTE ON 5 AR HN E MA G 0. CY 02 5% CR EA M DO 00 11 11 00 30 30 CL 18 AD Ac XY 14 -0 -2 .0 IN 14 KI ti CY 33 7- 0- 00 IC 10 NS ve CL 14 20 20 IN 25 08 08 PH TI E 0 AR MO HY MA TH CL CY Y AT D E 10 0 MG CA P 00 11 11 00 30 30 CL 18 AD Ac 07 -0 -2 .0 IN 14 KI ti 80 7- 0- 00 IC 09 NS ve 42 20 20 01 08 08 PH TI 5 AR MO MA TH CY Y D 00 11 11 00 20 4 CL 18 AD Ac 59 -0 -2 .0 IN 14 KI ti 10 7- 0- 00 IC 08 NS ve 38 20 20 50 08 08 PH TI 5 AR MO MA TH CY Y D DI 00 10 11 00 90 30 CL 18 CO Ac AZ 59 -2 -0 .0 IN 07 OP ti EP 15 9- 7- 00 IC 26 ER ve AM 61 20 20 5 91 08 08 PH DUARTE 0 AR HN MG MA G CY TA BL ET IP 00 10 10 00 27 30 PU 18 CO Ac RA 37 -0 -2 0. LM 99 OP ti T- 86 9- 3- 00 O 17 ER ve AL 98 20 20 0 DO 4 BU 89 08 08 SE DUARTE T 1 HN 0. PH G 5- AR 3( MA 2. CY 5) MG /3 ML VY 66 10 10 00 30 30 CL 17 No Ac TO 58 -1 -2 .0 IN 98 t ti RI 20 5- 3- 00 IC 95 Av ve N 31 20 20 ai 10 33 08 08 PH la -4 1 AR bl 0 MA e MG CY TA BL ET 17 07 10 03 17 25 CL 17 No Ac 27 -2 -2 .0 IN 47 t ti 00 1- 3- 00 IC 63 Av ve 72 20 20 ai 10 08 08 PH la 1 AR bl MA e CY TR 00 10 10 00 20 5 CL 17 No Ac AM 37 -1 -2 .0 IN 98 t ti AD 84 5- 3- 00 IC 93 Av ve OL 15 20 20 ai 10 08 08 PH la HC 5 AR bl L MA e 50 CY MG TA BL ET 00 07 10 02 30 30 CL 17 No Ac 08 -2 -2 .0 IN 47 t ti 51 2- 3- 00 IC 94 Av ve 71 20 20 ai 80 08 08 PH la 2 AR bl MA e CY PO 51 10 10 00 52 31 CL 17 No Ac LY 99 -1 -2 7. IN 98 t ti ET 10 5- 3- 00 IC 94 Av ve HY 45 20 20 0 ai LE 75 08 08 PH la NE 7 AR bl MA e GL CY YC OL 33 50 PO WD LI 68 06 10 04 30 30 CL 17 No Ac SI 18 -2 -2 .0 IN 29 t ti NO 00 3- 3- 00 IC 67 Av ve KS 51 20 20 ai IL 20 08 08 PH la 1 AR bl 2. MA e 5 CY MG TA BL ET ME 00 07 10 03 30 30 CL 17 No Ac TO 37 -2 -2 .0 IN 47 t ti KS 80 1- 3- 00 IC 62 Av ve OL 03 20 20 ai OL 20 08 08 PH la 1 AR bl TA MA e RT CY RA TE 50 MG TA B 00 09 10 00 41 9 CL 17 No Ac 14 -2 -0 .0 IN 84 t ti 31 2- 9- 00 IC 62 Av ve 47 20 20 ai 50 08 08 PH la 1 AR bl MA e CY 00 09 10 00 5. 5 CL 17 No Ac 04 -2 -0 00 IN 84 t ti 51 2- 9- 0 IC 63 Av ve 53 20 20 ai 02 08 08 PH la 0 AR bl MA e CY 00 09 10 00 30 30 CL 17 No Ac 07 -3 -0 .0 IN 89 t ti 80 0- 9- 00 IC 78 Av ve 42 20 20 ai 01 08 08 PH la 5 AR bl MA e CY LI 68 06 09 03 30 30 CL 17 No Ac SI 18 -2 -2 .0 IN 29 t ti NO 00 3- 6- 00 IC 67 Av ve KS 51 20 20 ai IL 20 08 08 PH la 1 AR bl 2. MA e 5 CY MG TA BL ET FU 00 09 09 00 60 60 CL 17 No Ac RO 37 -1 -2 .0 IN 80 t ti SE 80 3- 6- 00 IC 04 Av ve MO 21 20 20 ai DE 61 08 08 PH la 0 AR bl 40 MA e CY MG TA BL ET ME 00 07 09 02 30 30 CL 17 No Ac TO 37 -2 -2 .0 IN 47 t ti KS 80 1- 6- 00 IC 62 Av ve OL 03 20 20 ai OL 21 08 08 PH la 0 AR bl TA MA e RT CY RA TE 50 MG TA B 00 07 09 01 30 30 CL 17 No Ac 08 -2 -2 .0 IN 47 t ti 51 2- 6- 00 IC 94 Av ve 71 20 20 ai 80 08 08 PH la 1 AR bl MA e CY 00 08 09 01 30 30 CL 17 No Ac PI 60 -1 -2 .0 IN 61 t ti RI 30 5- 6- 00 IC 62 Av ve N 16 20 20 ai EC 92 08 08 PH la 1 AR bl 32 MA e 5 CY MG TA BL ET 17 07 09 02 17 25 CL 17 No Ac 27 -2 -2 .0 IN 47 t ti 00 1- 6- 00 IC 63 Av ve 72 20 20 ai 10 08 08 PH la 1 AR bl MA e CY DI 00 07 09 02 90 30 CL 17 No Ac AZ 59 -1 -2 .0 IN 41 t ti EP 15 0- 6- 00 IC 39 Av ve AM 61 20 20 ai 5 91 08 08 PH la 0 AR bl MG MA e CY TA BL ET DI 00 07 08 01 90 30 CL 17 No Ac AZ 59 -1 -2 .0 IN 41 t ti EP 15 0- 8- 00 IC 39 Av ve AM 61 20 20 ai 5 91 08 08 PH la 0 AR bl MG MA e CY TA BL ET 17 07 08 01 17 25 CL 17 No Ac 27 -2 -2 .0 IN 47 t ti 00 1- 8- 00 IC 63 Av ve 72 20 20 ai 10 08 08 PH la 1 AR bl MA e CY LI 68 06 08 02 30 30 CL 17 No Ac SI 18 -2 -2 .0 IN 29 t ti NO 00 3- 8- 00 IC 67 Av ve KS 51 20 20 ai [place] 20 08 08 PH la 1 AR bl 2. MA e 5 CY MG TA BL ET ME 00 07 08 01 30 30 CL 17 No Ac TO 37 -2 -2 .0 IN 47 t ti KS 80 1- 8- 00 IC 62 Av ve OL 03 20 20 ai OL 21 08 08 PH la 0 AR bl TA MA e RT CY RA TE 50 MG TA B 00 08 08 00 30 30 CL 17 No Ac PI 60 -1 -2 .0 IN 61 t ti RI 30 5- 8- 00 IC 62 Av ve N 16 20 20 ai EC 92 08 08 PH la 1 AR bl 32 MA e 5 CY MG TA BL ET 00 08 08 00 30 30 CL 17 No Ac 07 -1 -2 .0 IN 63 t ti 80 8- 8- 00 IC 04 Av ve 41 20 20 ai 93 08 08 PH la 4 AR bl MA e CY ME 00 07 08 00 30 30 CL 17 No Ac TO 37 -2 -0 .0 IN 47 t ti KS 80 1- 1- 00 IC 62 Av ve OL 03 20 20 ai OL 21 08 08 PH la 0 AR bl TA MA e RT CY RA TE 50 MG TA B 00 01 08 05 30 30 CL 16 No Ac 07 -2 -0 .0 IN 31 t ti 80 2- 1- 00 IC 67 Av ve 41 20 20 ai 93 08 08 PH la 4 AR bl MA e CY 17 07 08 00 17 25 CL 17 No Ac 27 -2 -0 .0 IN 47 t ti 00 1- 1- 00 IC 63 Av ve 72 20 20 ai 10 08 08 PH la 1 AR bl MA e CY LI 68 06 08 01 30 30 CL 17 No Ac SI 18 -2 -0 .0 IN 29 t ti NO 00 3- 1- 00 IC 67 Av ve KS 51 20 20 ai IL 20 08 08 PH la 1 AR bl 2. MA e 5 CY MG TA BL ET 00 07 08 00 30 30 CL 17 No Ac 08 -2 -0 .0 IN 47 t ti 51 2- 1- 00 IC 94 Av ve 71 20 20 ai 80 08 08 PH la 1 AR bl MA e CY VY 66 02 08 05 30 30 CL 16 No Ac TO 58 -0 -0 .0 IN 41 t ti RI 20 6- 1- 00 IC 98 Av ve N 31 20 20 ai 10 33 08 08 PH la -4 1 AR bl 0 MA e MG CY TA BL ET NE 24 07 08 00 10 5 CL 17 No Ac OM 20 -2 -0 .0 IN 49 t ti YC 80 4- 1- 00 IC 51 Av ve IN 63 20 20 ai -P 56 08 08 PH la OL 2 AR bl YM MA e YX CY IN -H C EA R TURNER SP 00 02 08 03 30 30 CL 16 No Ac PI 60 -0 -0 .0 IN 41 t ti RI 30 6- 1- 00 IC 96 Av ve N 16 20 20 ai EC 92 08 08 PH la 1 AR bl 32 MA e 5 CY MG TA BL ET DI 00 02 08 05 30 30 CL 16 No Ac OV 07 -0 -0 .0 IN 41 t ti AN 80 6- 1- 00 IC 97 Av ve 31 20 20 ai HC 43 08 08 PH la T 4 AR bl 80 MA e -1 CY 2. 5 MG TA BL ET IP 00 08 08 04 18 30 PU 16 CO Ac RA 37 -2 -0 0. LM 35 OP ti T- 86 0- 1- 00 O 81 ER ve AL 98 20 20 0 DO 7 BU 89 07 08 SE DUARTE T 1 HN 0. PH G 5- AR 3( MA 2. CY 5) MG /3 ML NE 24 07 07 00 10 5 CL 17 No Ac OM 20 -1 -1 .0 IN 41 t ti YC 80 0- 7- 00 IC 37 Av ve IN 63 20 20 ai -P 56 08 08 PH la OL 2 AR bl YM MA e YX CY IN -H C EA R TURNER SP DI 00 07 07 00 30 5 CL 17 No Ac CY 37 -1 -1 .0 IN 41 t ti CL 81 0- 7- 00 IC 38 Av ve OM 61 20 20 ai IN 00 08 08 PH la E 1 AR bl 10 MA e CY MG CA PS UL E DI 00 07 07 00 90 30 CL 17 No Ac AZ 59 -1 -1 .0 IN 41 t ti EP 15 0- 7- 00 IC 39 Av ve AM 61 20 20 ai 5 91 08 08 PH la 0 AR bl MG MA e CY TA BL ET 00 01 07 04 30 30 CL 16 No Ac 07 -2 -0 .0 IN 31 t ti 80 2- 3- 00 IC 67 Av ve 41 20 20 ai 93 08 08 PH la 4 AR bl MA e CY 17 06 07 00 17 5 CL 17 No Ac 27 -1 -0 .0 IN 27 t ti 00 8- 3- 00 IC 48 Av ve 72 20 20 ai 10 08 08 PH la 1 AR bl MA e CY DI 00 02 07 04 30 30 CL 16 No Ac OV 07 -0 -0 .0 IN 41 t ti AN 80 6- 3- 00 IC 97 Av ve 31 20 20 ai HC 43 08 08 PH la T 4 AR bl 80 MA e -1 CY 2. 5 MG TA BL ET ME 00 06 07 00 30 30 CL 17 No Ac TO 37 -1 -0 .0 IN 27 t ti KS 80 8- 3- 00 IC 55 Av ve OL 03 20 20 ai OL 21 08 08 PH la 0 AR bl TA MA e RT CY RA TE 50 MG TA B VY 66 02 07 04 30 30 CL 16 No Ac TO 58 -0 -0 .0 IN 41 t ti RI 20 6- 3- 00 IC 98 Av ve N 31 20 20 ai 10 33 08 08 PH la -4 1 AR bl 0 MA e MG CY TA BL ET LI 68 06 07 00 30 30 CL 17 No Ac SI 18 -2 -0 .0 IN 29 t ti NO 00 3- 3- 00 IC 67 Av ve KS 51 20 20 ai IL 20 08 08 PH la 1 AR bl 2. MA e 5 CY MG TA BL ET 00 03 07 02 30 30 CL 16 No Ac 08 -1 -0 .0 IN 72 t ti 51 9- 3- 00 IC 15 Av ve 71 20 20 ai 80 08 08 PH la 1 AR bl MA e CY TURNER 53 06 06 00 6. 3 CL 17 No Ac LF 48 -0 -1 00 IN 20 t ti AM 90 5- 2- 0 IC 72 Av ve ET 14 20 20 ai HO 60 08 08 PH la XA 1 AR bl ZO MA e LE CY -T MP DS TA BL ET 52 06 06 00 6. 2 CL 17 No Ac 15 -0 -1 00 IN 20 t ti 20 5- 2- 0 IC 71 Av ve 00 20 20 ai 40 08 08 PH la 2 AR bl MA e CY DI 00 05 06 00 90 30 CL 17 No Ac AZ 59 -3 -1 .0 IN 17 t ti EP 15 1- 2- 00 IC 39 Av ve AM 61 20 20 ai 5 91 08 08 PH la 0 AR bl MG MA e CY TA BL ET DI 57 04 06 01 30 30 CL 16 No Ac GO 66 -1 -0 .0 IN 85 t ti XI 40 0- 5- 00 IC 71 Av ve N 43 20 20 ai 0. 71 08 08 PH la 12 8 AR bl 5 MA e MG CY TA BL ET VY 66 02 05 03 30 30 CL 16 No Ac TO 58 -0 -2 .0 IN 41 t ti RI 20 6- 2- 00 IC 98 Av ve N 31 20 20 ai 10 33 08 08 PH la -4 1 AR bl 0 MA e MG CY TA BL ET 00 01 05 03 30 30 CL 16 No Ac 07 -2 -2 .0 IN 31 t ti 80 2- 2- 00 IC 67 Av ve 41 20 20 ai 93 08 08 PH la 4 AR bl MA e CY DI 00 02 05 03 30 30 CL 16 No Ac OV 07 -0 -2 .0 IN 41 t ti AN 80 6- 2- 00 IC 97 Av ve 31 20 20 ai HC 43 08 08 PH la T 4 AR bl 80 MA e -1 CY 2. 5 MG TA BL ET 00 03 05 01 30 30 CL 16 No Ac 08 -1 -2 .0 IN 72 t ti 51 9- 2- 00 IC 15 Av ve 71 20 20 ai 80 08 08 PH la 1 AR bl MA e CY 17 04 05 01 17 15 CL 16 No Ac 27 -0 -2 .0 IN 82 t ti 00 4- 2- 00 IC 47 Av ve 72 20 20 ai 10 08 08 PH la 1 AR bl MA e CY ME 00 04 05 01 30 30 CL 16 No Ac TO 37 -0 -2 .0 IN 82 t ti KS 80 4- 2- 00 IC 48 Av ve OL 03 20 20 ai OL 21 08 08 PH la 0 AR bl TA MA e RT CY RA TE 50 MG TA B DI 57 04 04 00 30 30 CL 16 No Ac GO 66 -1 -2 .0 IN 85 t ti XI 40 0- 4- 00 IC 71 Av ve N 43 20 20 ai 0. 71 08 08 PH la 12 8 AR bl 5 MA e MG CY TA BL ET 00 03 04 00 30 30 CL 16 No Ac 08 -1 -1 .0 IN 72 t ti 51 9- 7- 00 IC 15 Av ve 71 20 20 ai 80 08 08 PH la 1 AR bl MA e CY DI 00 02 04 02 30 30 CL 16 No Ac OV 07 -0 -1 .0 IN 41 t ti AN 80 6- 0- 00 IC 97 Av ve 31 20 20 ai HC 43 08 08 PH la T 4 AR bl 80 MA e -1 CY 2. 5 MG TA BL ET 00 02 04 02 30 30 CL 16 No Ac PI 60 -0 -1 .0 IN 41 t ti RI 30 6- 0- 00 IC 96 Av ve N 16 20 20 ai EC 92 08 08 PH la 1 AR bl 32 MA e 5 CY MG TA BL ET DI 00 04 04 00 90 30 CL 16 No Ac AZ 59 -0 -1 .0 IN 82 t ti EP 15 4- 0- 00 IC 51 Av ve AM 61 20 20 ai 5 91 08 08 PH la 0 AR bl MG MA e CY TA BL ET 00 03 04 01 45 23 CL 16 No Ac 14 -0 -1 .0 IN 62 t ti 31 4- 0- 00 IC 05 Av ve 34 20 20 ai 80 08 08 PH la 5 AR bl MA e CY 00 01 04 02 30 30 CL 16 No Ac 07 -2 -1 .0 IN 31 t ti 80 2- 0- 00 IC 67 Av ve 41 20 20 ai 93 08 08 PH la 4 AR bl MA e CY VY 66 02 04 02 30 30 CL 16 No Ac TO 58 -0 -1 .0 IN 41 t ti RI 20 6- 0- 00 IC 98 Av ve N 31 20 20 ai 10 33 08 08 PH la -4 1 AR bl 0 MA e MG CY TA BL ET 17 04 04 00 17 15 CL 16 No Ac 27 -0 -1 .0 IN 82 t ti 00 4- 0- 00 IC 47 Av ve 72 20 20 ai 10 08 08 PH la 1 AR bl MA e CY 49 08 04 03 18 30 PU 16 No Ac 50 -2 -1 0. LM 35 t ti 20 0- 0- 00 O 81 Av ve 67 20 20 0 DO 7 ai 26 07 08 SE la 0 bl PH e AR MA CY ME 00 04 04 00 30 30 CL 16 No Ac TO 37 -0 -1 .0 IN 82 t ti KS 80 4- 0- 00 IC 48 Av ve OL 03 20 20 ai OL 21 08 08 PH la 0 AR bl TA MA e RT CY RA TE 50 MG TA B 17 09 04 05 17 15 CL 15 No Ac 27 -2 -0 .0 IN 59 t ti 00 5- 7- 00 IC 64 Av ve 72 20 20 ai 10 07 08 PH la 1 AR bl MA e CY VY 66 02 04 01 30 30 CL 16 No Ac TO 58 -0 -0 .0 IN 41 t ti RI 20 6- 7- 00 IC 98 Av ve N 31 20 20 ai 10 33 08 08 PH la -4 1 AR bl 0 MA e MG CY TA BL ET DI 00 03 04 00 90 30 CL 16 No Ac AZ 59 -0 -0 .0 IN 62 t ti EP 15 5- 7- 00 IC 69 Av ve AM 61 20 20 ai 5 91 08 08 PH la 0 AR bl MG MA e CY TA BL ET 00 02 04 01 30 30 CL 16 No Ac PI 60 -0 -0 .0 IN 41 t ti RI 30 6- 7- 00 IC 96 Av ve N 16 20 20 ai EC 92 08 08 PH la 1 AR bl 32 MA e 5 CY MG TA BL ET DI 00 02 04 01 30 30 CL 16 No Ac OV 07 -0 -0 .0 IN 41 t ti AN 80 6- 7- 00 IC 97 Av ve 31 20 20 ai HC 43 08 08 PH la T 4 AR bl 80 MA e -1 CY 2. 5 MG TA BL ET 00 01 04 01 30 30 CL 16 No Ac 07 -2 -0 .0 IN 31 t ti 80 2- 7- 00 IC 67 Av ve 41 20 20 ai 93 08 08 PH la 4 AR bl MA e CY 00 03 04 00 45 23 CL 16 No Ac 14 -0 -0 .0 IN 62 t ti 31 4- 7- 00 IC 05 Av ve 34 20 20 ai 80 08 08 PH la 5 AR bl MA e CY ME 00 09 04 05 30 30 CL 15 No Ac TO 37 -2 -0 .0 IN 59 t ti KS 80 5- 7- 00 IC 65 Av ve OL 03 20 20 ai OL 21 07 08 PH la 0 AR bl TA MA e RT CY RA TE 50 MG TA B DO 00 02 03 00 30 30 CL 16 No Ac XY 59 -1 -2 .0 IN 52 t ti CY 15 9- 6- 00 IC 16 Av ve CL 44 20 20 ai IN 00 08 08 PH la E 5 AR bl HY MA e CL CY AT E 10 0 MG CA P 00 10 03 03 45 23 CL 15 No Ac 14 -2 -2 .0 IN 79 t ti 31 9- 6- 00 IC 86 Av ve 34 20 20 ai 80 07 08 PH la 5 AR bl MA e CY DI 00 02 03 00 30 30 CL 16 No Ac OV 07 -0 -2 .0 IN 41 t ti AN 80 6- 6- 00 IC 97 Av ve 31 20 20 ai HC 43 08 08 PH la T 4 AR bl 80 MA e -1 CY 2. 5 MG TA BL ET VY 66 02 03 00 30 30 CL 16 No Ac TO 58 -0 -2 .0 IN 41 t ti RI 20 6- 6- 00 IC 98 Av ve N 31 20 20 ai 10 33 08 08 PH la -4 1 AR bl 0 MA e MG CY TA BL ET DI 00 10 03 03 90 30 CL 15 No Ac AZ 59 -2 -2 .0 IN 79 t ti EP 15 9- 6- 00 IC 75 Av ve AM 61 20 20 ai 5 91 07 08 PH la 0 AR bl MG MA e CY TA BL ET 17 09 03 04 17 15 CL 15 No Ac 27 -2 -2 .0 IN 59 t ti 00 5- 6- 00 IC 64 Av ve 72 20 20 ai 10 07 08 PH la 1 AR bl MA e CY 00 02 03 00 30 30 CL 16 No Ac PI 60 -0 -2 .0 IN 41 t ti RI 30 6- 6- 00 IC 96 Av ve N 16 20 20 ai EC 92 08 08 PH la 1 AR bl 32 MA e 5 CY MG TA BL ET ME 00 09 03 04 30 30 CL 15 No Ac TO 37 -2 -2 .0 IN 59 t ti KS 80 5- 6- 00 IC 65 Av ve OL 03 20 20 ai OL 21 07 08 PH la 0 AR bl TA MA e RT CY RA TE 50 MG TA B 00 01 03 00 30 30 CL 16 No Ac 07 -2 -2 .0 IN 31 t ti 80 2- 5- 00 IC 67 Av ve 41 20 20 ai 93 08 08 PH la 4 AR bl MA e CY 49 08 03 02 18 30 PU 16 No Ac 50 -2 -2 0. LM 35 t ti 20 0- 5- 00 O 81 Av ve 67 20 20 0 DO 7 ai 26 07 08 SE la 0 bl PH e AR MA CY DO 00 12 03 01 30 30 CL 16 No Ac XY 59 -1 -2 .0 IN 06 t ti CY 15 1- 5- 00 IC 69 Av ve CL 44 20 20 ai IN 00 07 08 PH la E 5 AR bl HY MA e CL CY AT E 10 0 MG CA P VY 66 07 03 05 30 30 CL 15 No Ac TO 58 -1 -2 .0 IN 14 t ti RI 20 1- 4- 00 IC 35 Av ve N 31 20 20 ai 10 33 07 08 PH la -4 1 AR bl 0 MA e MG CY TA BL ET 00 01 03 00 30 30 CL 16 No Ac 08 -0 -2 .0 IN 20 t ti 51 4- 4- 00 IC 97 Av ve 71 20 20 ai 80 08 08 PH la 1 AR bl MA e CY DI 00 10 03 02 90 30 CL 15 No Ac AZ 59 -2 -2 .0 IN 79 t ti EP 15 9- 4- 00 IC 75 Av ve AM 61 20 20 ai 5 91 07 08 PH la 0 AR bl MG MA e CY TA BL ET 17 09 03 03 17 15 CL 15 No Ac 27 -2 -2 .0 IN 59 t ti 00 5- 4- 00 IC 64 Av ve 72 20 20 ai 10 07 08 PH la 1 AR bl MA e CY AZ 59 01 03 00 6. 5 CL 16 No Ac IT 76 -1 -2 00 IN 24 t ti HR 23 0- 4- 0 IC 45 Av ve OM 06 20 20 ai YC 00 08 08 PH la IN 1 AR bl MA e 25 CY 0 MG TA BL ET 00 10 03 02 45 23 CL 15 No Ac 14 -2 -2 .0 IN 79 t ti 31 9- 4- 00 IC 86 Av ve 34 20 20 ai 80 07 08 PH la 5 AR bl MA e CY DI 00 07 03 05 30 30 CL 15 No Ac OV 07 -1 -2 .0 IN 14 t ti AN 80 1- 4- 00 IC 33 Av ve 31 20 20 ai HC 43 07 08 PH la T 4 AR bl 80 MA e -1 CY 2. 5 MG TA BL ET ME 00 07 03 04 30 30 CL 15 No Ac TO 37 -1 -2 .0 IN 14 t ti KS 80 1- 4- 00 IC 36 Av ve OL 04 20 20 ai OL 70 07 08 PH la 1 AR bl TA MA e RT CY RA TE 10 0 MG TA B 00 07 03 05 30 30 CL 15 No Ac PI 60 -1 -2 .0 IN 14 t ti RI 30 1- 4- 00 IC 32 Av ve N 16 20 20 ai EC 92 07 08 PH la 1 AR bl 32 MA e 5 CY MG TA BL ET FE 53 07 03 05 30 30 CL 15 No Ac LO 48 -1 -2 .0 IN 14 t ti DI 90 1- 4- 00 IC 34 Av ve PI 36 20 20 ai NE 90 07 08 PH la 1 AR bl ER MA e 5 CY MG TA BL ET Vital Signs 04-23-2013 18:32 Name Value Interpretat Reference Comment ion Range BP 62 mm[Hg] Diastolic BP Systolic 135 mm[Hg] Heart 70 /min Rate/Pulse O2% 95 % Respiratory 20 /min Rate 04-23-2013 17:02 Name Value Interpretat Reference Comment ion Range BP 70 mm[Hg] Diastolic BP Systolic 135 mm[Hg] Heart 72 /min Rate/Pulse O2% 99 % Respiratory 20 /min Rate 03-19-2013 18:12 Name Value Interpretat Reference Comment ion Range BP 84 mm[Hg] Diastolic BP Systolic 129 mm[Hg] Heart 82 /min Rate/Pulse O2% 98 % Respiratory 16 /min Rate 03-19-2013 14:34 Name Value Interpretat Reference Comment ion Range BP 66 mm[Hg] Diastolic BP Systolic 122 mm[Hg] Heart 89 /min Rate/Pulse O2% 91 % Respiratory 20 /min Rate 10-22-2012 17:30 Name Value Interpretat Reference Comment ion Range BP 72 mm[Hg] Diastolic BP Systolic 112 mm[Hg] Heart 60 /min Rate/Pulse O2% 97 % Respiratory 20 /min Rate 10-22-2012 17:25 Name Value Interpretat Reference Comment ion Range BP 72 mm[Hg] Diastolic BP Systolic 112 mm[Hg] Heart 60 /min Rate/Pulse O2% 97 % Respiratory 20 /min Rate 10-08-2012 21:12 Name Value Interpretat Reference Comment ion Range BP 58 mm[Hg] Diastolic BP Systolic 126 mm[Hg] Heart 70 /min Rate/Pulse O2% 97 % Respiratory 20 /min Rate 10-08-2012 17:21 Name Value Interpretat Reference Comment ion Range Body 98 [degF] Temperature BP 76 mm[Hg] Diastolic BP Systolic 126 mm[Hg] Heart 72 /min Rate/Pulse O2% 98 % Respiratory 16 /min Rate Results Labs Lab Lab Date Result Refere Interp Status Commen Order Detail nces retati t Range on Differential panel, method unspecified - (12-06-2016 08:26) Hypochr 12-06-2 2+ complet omia 017 ed [Presen 08:26 ce] in Blood LYMPH 23 % 10% - Normal complet 017 50% ed 08:26 Platele NORMAL complet ts 017 ed [Presen 08:26 ce] in Blood by Light microsc opy Streptococcus pyogenes Ag [Presence] in Unspecified specimen (11-22-2016 18:50) Strepto NEGATIV complet coccus 017 E ed pyogene 18:50 s Ag [Presen ce] in Unspeci fied specime n Differential panel, method unspecified - (11-22-2016 17:30) BLASTOC 2 % 0- High complet YTES 017 alert ed 17:30 LYMPH 17 % 10% - Normal complet 017 50% ed 17:30 Platele NORMAL complet ts 017 ed [Presen 17:30 ce] in Blood by Light microsc opy Differential panel, method unspecified - (11-12-2016 08:30) LYMPH 24 % 10% - Normal complet 017 50% ed 08:30 Platele NORMAL complet ts 017 ed [Presen 08:30 ce] in Blood by Light microsc opy JAK2 gene p.[id number] [Presence] in Blood or Tissue by Molecular genetics method (09-29-2016 14:15) JAK2 NEGATIV complet gene 017 E ed p.[id number] 14:15 [Presen ce] in Blood or Tissue by Molecul ar genetic s method Heterophile Ab [Presence] in Serum by Latex agglutination (09-29-2016 11:50) Heterop NEGATIV NEG complet hile Ab 017 E ed 11:50 [Presen ce] in Serum by Latex aggluti nation Differential panel, method unspecified - (09-29-2016 11:47) Hypochr 1+ complet omia 017 ed [Presen 11:47 ce] in Blood LYMPH 17 % 10% - Normal complet 017 50% ed 11:47 Platele NORMAL complet ts 017 ed [Presen 11:47 ce] in Blood by Light microsc opy COMPREHENSIVE METABOLIC PANEL (04-23-2013 16:40) Glucose 110 74-106 complet 014 mg/dL ed Bld-mCn 16:40 c BUN 14 7-18 complet Bld-mCn 014 mg/dL ed c 16:40 Creat 0.7 0.6-1.0 complet SerPl-m 014 mg/dL ed Cnc 16:40 GFR/BSA 87 59- complet .pred 014 ML/MIN ed SerPl 16:40 Schwart z-vRate Sodium 139 136-145 complet SerPl-s 014 mmoL/L ed Cnc 16:40 Potassi 4.5 3.5-5.1 complet um 014 mmoL/L ed SerPl-s 16:40 Cnc Chlorid 102 98-107 complet e 014 mmoL/L ed SerPl-s 16:40 Cnc CO2 30 21.0-32 complet SerPl-s 014 mmoL/L .0 ed Cnc 16:40 Calcium 02-17-2 9.4 8.5-10. complet 014 mg/dL 1 ed SerPl-m 16:40 Cnc Prot 02-17-2 7.1 6.4-8.2 complet SerPl-m 014 gm/dL ed Cnc 16:40 Albumin 02-17-2 3.5 3.4-5.0 complet 014 gm/dL ed SerPl-m 16:40 Cnc Globuli 02-17-2 3.6 1.3-3.2 complet n 014 gm/dL ed Ser-mCn 16:40 c Albumin 02-17-2 1.0 UNK 1.1-1.8 complet /Glob 014 ed SerPl-m 16:40 Rto Bilirub 02-17-2 0.8 0.2-1.0 complet 014 mg/dL ed SerPl-m 16:40 Cnc AST 02-17-2 30 U/L 15-37 complet SerPl-c 014 ed Cnc 16:40 ALT 02-17-2 46 U/L 12-78 complet SerPl-c 014 ed Cnc 16:40 ALP 02-17-2 184 U/L 50-136 complet SerPl-c 014 ed Cnc 16:40 CBC with AUTO DIFF (04-23-2013 16:40) WBC # 02-17-2 8.2 4.8-10. complet Bld 014 K/MM3 8 ed Auto 16:40 RBC # 02-17-2 5.06 4.2-5.4 complet Bld 014 M/mm3 ed Auto 16:40 Hgb 02-17-2 13.2 12.2-16 complet Bld-mCn 014 g/dL .2 ed c 16:40 Hct Fr 02-17-2 39.6 % 37.0-47 complet Bld 014 .0 ed 16:40 MCV RBC 02-17-2 78.2 fl 82.2-97 complet 014 .8 ed 16:40 MCH RBC 02-17-2 26.0 pg 27-31.2 complet Qn 014 ed Auto 16:40 MEAN 02-17-2 33.3 31.8-35 complet CORPUSC 014 g/dl .4 ed ULAR 16:40 HGB CONC RDW RBC 02-17-2 12.8 % 11.5-17 complet Auto 014 .5 ed 16:40 Platele 02-17-2 274 142-424 complet t Bld 014 K/mm3 ed Ql 16:40 Manual MEAN 02-17-2 8.5 fl 7.4-10. complet PLATELE 014 4 ed T 16:40 VOLUME Granulo 02-17-2 52.6 % 37.0-80 complet cytes 014 .0 ed Fr Bld 16:40 Auto LYMPH % 02-17-2 36.7 % 10-50.0 complet 014 ed 16:40 Monocyt 02-17-2 6.0 % 1.7-9.3 complet es Fr 014 ed Bld 16:40 Auto Eosinop 02-17-2 4.5 % 0.1-12. complet hil Fr 014 0 ed Bld 16:40 Auto Basophi 02-17-2 0.2 % 0.1-2.0 complet ls Fr 014 ed Bld 16:40 Auto Granulo 02-17-2 4.3 1.8-7.8 complet cytes # 014 K/mm3 ed Bld 16:40 Auto Lymphoc 02-17-2 3.0 0.7-4.5 complet ytes Fr 014 K/mm3 ed Bld 16:40 Auto Monocyt 02-17-2 0.5 0.1-1.0 complet es # 014 K/mm3 ed Bld 16:40 Auto Eosinop 02-17-2 0.4 0.0-0.4 complet hil # 014 K/mm3 ed Bld 16:40 Auto Basophi 02-17-2 0.0 0-0.2 complet ls # 014 K/MM3 ed Bld 16:40 Auto URINALYSIS/COMPLETE (04-23-2013 16:40) URINE 02-17-2 YELLOW YELLOW complet COLOR 014 ed 16:40 URINE 02-17-2 CLEAR CLEAR complet APPEARA 014 ed NCE 16:40 URINE 02-17-2 NEGATIV NEG complet GLUCOSE 014 E ed - 16:40 DIPSTIC K URINE 02-17-2 NEGATIV NEG complet BILIRUB 014 E ed IN - 16:40 DIPSTIC K URINE 02-17-2 NEGATIV NEG complet KETONE 014 E mg/dL ed 16:40 URINE 02-17-2 Less 1.005-1 complet SPECIFI 014 than or .030 ed C 16:40 equal GRAVITY to 1.005 URINE NEGATIV NEG complet BLOOD 014 E ed 16:40 URINE 7.0 UNK 5.0-8.5 complet PH 014 ed 16:40 URINE NEGATIV NEG complet PROTEIN 014 E mg/dL ed - 16:40 DIPSTIC K URINE 0.2 NEG complet UROBILI 014 E.U./dL ed NOGEN - 16:40 DIPSTIC K URINE NEGATIV NEG complet NITRATE 014 E ed - 16:40 DIPSTIC K URINE NEGATIV NEG complet LEUK 014 E ed ESTERAS 16:40 E URINE TRACE O complet BACTERI 014 ed A 16:40 COMPREHENSIVE METABOLIC PANEL (03-19-2013 13:44) Glucose 112 74-106 complet 014 mg/dL ed Bld-mCn 13:44 c BUN 11 7-18 complet Bld-mCn 014 mg/dL ed c 13:44 Creat 0.7 0.6-1.0 complet SerPl-m 014 mg/dL ed Cnc 13:44 GFR/BSA 87 59- complet .pred 014 ML/MIN ed SerPl 13:44 Schwart z-vRate Sodium 142 136-145 complet SerPl-s 014 mmoL/L ed Cnc 13:44 Potassi 3.5 3.5-5.1 complet um 014 mmoL/L ed SerPl-s 13:44 Cnc Chlorid 104 98-107 complet e 014 mmoL/L ed SerPl-s 13:44 Cnc CO2 29 21.0-32 complet SerPl-s 014 mmoL/L .0 ed Cnc 13:44 Calcium 8.7 8.5-10. complet 014 mg/dL 1 ed SerPl-m 13:44 Cnc Prot 6.8 6.4-8.2 complet SerPl-m 014 gm/dL ed Cnc 13:44 Albumin 3.2 3.4-5.0 complet 014 gm/dL ed SerPl-m 13:44 Cnc Globuli 3.6 1.3-3.2 complet n 014 gm/dL ed Ser-mCn 13:44 c Albumin 0.9 UNK 1.1-1.8 complet /Glob 014 ed SerPl-m 13:44 Rto Bilirub 0.4 0.2-1.0 complet 014 mg/dL ed SerPl-m 13:44 Cnc AST 30 U/L 15-37 complet SerPl-c 014 ed Cnc 13:44 ALT 67 U/L 30-65 complet SerPl-c 014 ed Cnc 13:44 ALP 224 U/L 50-136 complet SerPl-c 014 ed Cnc 13:44 CBC with AUTO DIFF (03-19-2013 13:44) WBC # 03-19-2 2.7 4.8-10. complet Bld 014 K/MM3 8 ed Auto 13:44 RBC # 03-19- 4.60 4.2-5.4 complet Bld 014 M/mm3 ed Auto 13:44 Hgb 12.2 12.2-16 complet Bld-mCn 014 g/dL .2 ed c 13:44 Hct Fr 37.1 % 37.0-47 complet Bld 014 .0 ed 13:44 MCV RBC 80.7 fl 82.2-97 complet 014 .8 ed 13:44 MCH RBC 26.6 pg 27-31.2 complet Qn 014 ed Auto 13:44 MEAN 32.9 31.8-35 complet CORPUSC 014 g/dl .4 ed ULAR 13:44 HGB CONC RDW RBC 14.3 % 11.5-17 complet Auto 014 .5 ed 13:44 Platele 162 142-424 complet t Bld 014 K/mm3 ed Ql 13:44 Manual MEAN 8.6 fl 7.4-10. complet PLATELE 014 4 ed T 13:44 VOLUME Granulo 51.3 % 37.0-80 complet cytes 014 .0 ed Fr Bld 13:44 Auto LYMPH % 35.3 % 10-50.0 complet 014 ed 13:44 Monocyt 01-13-2 12.0 % 1.7-9.3 complet es Fr 014 ed Bld 13:44 Auto Eosinop -13-2 1.2 % 0.1-12. complet hil Fr 014 0 ed Bld 13:44 Auto Basophi -13-2 0.2 % 0.1-2.0 complet ls Fr 014 ed Bld 13:44 Auto Granulo -13-2 1.4 1.8-7.8 complet cytes # 014 K/mm3 ed Bld 13:44 Auto Lymphoc -13-2 1.0 0.7-4.5 complet ytes Fr 014 K/mm3 ed Bld 13:44 Auto Monocyt -13-2 0.3 0.1-1.0 complet es # 014 K/mm3 ed Bld 13:44 Auto Eosinop -13-2 0.0 0.0-0.4 complet hil # 014 K/mm3 ed Bld 13:44 Auto Basophi 13-2 0.0 0-0.2 complet ls # 014 K/MM3 ed Bld 13:44 Auto URINALYSIS/COMPLETE (10-22-2012 16:56) URINE 08-18-2 YELLOW YELLOW complet COLOR 013 ed 16:56 URINE 08-18-2 CLEAR CLEAR complet APPEARA 013 ed NCE 16:56 URINE 08-18-2 NEGATIV NEG complet GLUCOSE 013 E ed - 16:56 DIPSTIC K URINE 08-18-2 NEGATIV NEG complet BILIRUB 013 E ed IN - 16:56 DIPSTIC K URINE 08-18-2 NEGATIV NEG complet KETONE 013 E mg/dL ed 16:56 URINE 08-18-2 1.015 1.005-1 complet SPECIFI 013 UNK .030 ed C 16:56 GRAVITY URINE 08-18-2 NEGATIV NEG complet BLOOD 013 E ed 16:56 URINE 08-18-2 7.5 UNK 5.0-8.5 complet PH 013 ed 16:56 URINE 08-18-2 NEGATIV NEG complet PROTEIN 013 E mg/dL ed - 16:56 DIPSTIC K URINE 08-18-2 0.2 NEG complet UROBILI 013 E.U./dL ed NOGEN - 16:56 DIPSTIC K URINE 08-18-2 NEGATIV NEG complet NITRATE 013 E ed - 16:56 DIPSTIC K URINE -18-2 TRACE NEG complet LEUK 013 ed ESTERAS 16:56 E URINE 08-18-2 5-10 O complet WBC 013 wbc/hpf ed 16:56 URINE 08-18-2 OCC. 0-5 complet SQUAMOU 013 #/hpf ed S CELLS 16:56 URINE 08-18-2 5-10 NONE complet RENAL 013 #/HPF ed CELLS 16:56 COMPREHENSIVE METABOLIC PANEL (10-22-2012 16:36) Glucose 0818-2 108 74-106 complet 013 mg/dL ed Bld-mCn 16:36 c BUN 18-2 6 mg/dL 7-18 complet Bld-mCn 013 ed c 16:36 Creat 08-18-2 0.7 0.6-1.0 complet SerPl-m 013 mg/dL ed Cnc 16:36 GFR 18-2 87 59- complet (ESTIMA 013 ML/MIN ed GARRETT) 16:36 Sodium 18-2 144 136-145 complet SerPl-s 013 mmoL/L ed Cnc 16:36 Potassi 08-18-2 3.9 3.5-5.1 complet um 013 mmoL/L ed SerPl-s 16:36 Cnc Chlorid 18-2 107 98-107 complet e 013 mmoL/L ed SerPl-s 16:36 Cnc CO2 18-2 32 21.0-32 complet SerPl-s 013 mmoL/L .0 ed Cnc 16:36 Calcium 08-18-2 8.7 8.5-10. complet 013 mg/dL 1 ed SerPl-m 16:36 Cnc Prot 08-18-2 6.8 6.4-8.2 complet SerPl-m 013 gm/dL ed Cnc 16:36 Albumin 08-18-2 3.3 3.4-5.0 complet 013 gm/dL ed SerPl-m 16:36 Cnc Globuli 08-18-2 3.5 1.3-3.2 complet n 013 gm/dL ed Ser-mCn 16:36 c Albumin 08-18-2 0.9 UNK 1.1-1.8 complet /Glob 013 ed SerPl-m 16:36 Rto Bilirub 08-18-2 0.6 0.2-1.0 complet 013 mg/dL ed SerPl-m 16:36 Cnc AST 08-18-2 8 U/L 15-37 complet SerPl-c 013 ed Cnc 16:36 ALT 08-18-2 34 U/L 30-65 complet SerPl-c 013 ed Cnc 16:36 ALP 08-18-2 181 U/L 50-136 complet SerPl-c 013 ed Cnc 16:36 Amylase SerPl-cCnc (10-22-2012 16:36) Amylase 08-18-2 35 U/L 25-115 complet 013 ed SerPl-c 16:36 Cnc LIPASE (10-22-2012 16:36) LIPASE 08-18-2 74 U/L 73-393 complet 013 ed 16:36 CBC with AUTO DIFF (10-22-2012 16:36) WBC # 08-18-2 6.0 4.8-10. complet Bld 013 K/MM3 8 ed Auto 16:36 RBC # 08-18-2 4.78 4.2-5.4 complet Bld 013 M/mm3 ed Auto 16:36 Hgb 08-18-2 12.7 12.2-16 complet Bld-mCn 013 g/dL .2 ed c 16:36 Hct Fr 08-18-2 38.6 % 37.0-47 complet Bld 013 .0 ed 16:36 MCV RBC 08-18-2 80.7 fl 82.2-97 complet 013 .8 ed 16:36 MCH RBC 08-18-2 26.6 pg 27-31.2 complet Qn 013 ed Auto 16:36 MEAN 08-18-2 32.9 31.8-35 complet CORPUSC 013 g/dl .4 ed ULAR 16:36 HGB CONC RDW RBC 08-18-2 13.0 % 11.5-17 complet Auto 013 .5 ed 16:36 Platele 08-18-2 229 142-424 complet t Bld 013 K/mm3 ed Ql 16:36 Manual MEAN 08-18-2 8.3 fl 7.4-10. complet PLATELE 013 4 ed T 16:36 VOLUME Granulo 08-18-2 54.2 % 37.0-80 complet cytes 013 .0 ed Fr Bld 16:36 Auto LYMPH % 08-18-2 36.7 % 10-50.0 complet 013 ed 16:36 Monocyt 08-18-2 5.7 % 1.7-9.3 complet es Fr 013 ed Bld 16:36 Auto Eosinop 08-18-2 3.2 % 0.1-12. complet hil Fr 013 0 ed Bld 16:36 Auto Basophi 08-18-2 0.3 % 0.1-2.0 complet ls Fr 013 ed Bld 16:36 Auto Granulo 08-18-2 3.3 1.8-7.8 complet cytes # 013 K/mm3 ed Bld 16:36 Auto Lymphoc 08-18-2 2.2 0.7-4.5 complet ytes Fr 013 K/mm3 ed Bld 16:36 Auto Monocyt 08-18-2 0.3 0.1-1.0 complet es # 013 K/mm3 ed Bld 16:36 Auto Eosinop 08-18-2 0.2 0.0-0.4 complet hil # 013 K/mm3 ed Bld 16:36 Auto Basophi 08-18-2 0.0 0-0.2 complet ls # 013 K/MM3 ed Bld 16:36 Auto Procedures Procedure DOS Code Location Performer Comment O2 CONC 1 E1390 CRISTINO GREGG [facility] 7 HOME HOME 85%/>02 MEDICAL MEDICAL CONC AT EQUIPME EQUIPME PRSC FLW RATE FLOW 21727 [place] [facility] CYTOMETRY 7 MEDICAL SERV INTERPRET FOUNDATIO ATION N 16/> MARKERS BLOOD 72564 JUN BARAHONA COUNT 7 [facility] COMPLETE INC INC AUTO&AUTO DIFRNTL WBC COMPREHEN 98200 JUN BARAHONA SIVE 7 [facility] METABOLIC INC INC PANEL WBC 33040 JUN BARAHONA ALKALINE 7 [facility] PHOSPHATA INC INC SE COUNT IMMUNOASS 58814 JUN BARAHONA AY NFCT 7 [facility] AGT ANTB INC INC QUAL/SEMI ADELFO 1 STEP JAK2 GENE 67670 JUN BARAHONA ANALYSIS 7 [facility] INC INC [id number] HE VARIANT NON-INVAS 18976 [place] ELVIRA 7 MEDICAL PHYSIOLOG IMAGING IC STUDY ASS EXTREMITY 3 [place] [address] JUN BARAHONA FOLIC 7 [facility] ACID INC INC SERUM BLOOD 57570 JUN BARAHONA COUNT 7 [facility] COMPLETE INC INC AUTO&AUTO DIFRNTL WBC CYANOCOBA 48389 JUN BARAHONA MIHAELA 7 [facility] VITAMIN INC INC B-12 O2 CONC 1 E1390 [facility] 7 HOME HOME 85%/>02 MEDICAL MEDICAL CONC AT EQUIPME EQUIPME PRSC FLW RATE SEDIMENTA 84859 JUN BARAHONA TION RATE 7 [facility] RBC INC INC NON-AUTOM ATED C-REACTIV 23691 JUN BARAHONA E PROTEIN 7 [facility] INC INC RADEX 11813 [facility] 7 MEDICAL COMPLETE IMAGING MINIMUM 3 ASS VIEWS RADEX 98503 [facility] FOOT 7 MEDICAL COMPLETE IMAGING MINIMUM 3 [place] [address] COMBINED COMBINED THYROID 7 PHYSICIAN PHYSICIAN STIMULATI S LA S LA NG HORMONE TSH BASIC 28077 COMBINED COMBINED METABOLIC 7 PHYSICIAN PHYSICIAN PANEL S LA S LA CALCIUM TOTAL O2 CONC 1 E1390 [facility] 7 HOME HOME 85%/>02 MEDICAL MEDICAL CONC AT EQUIPME EQUIPME PRS FLW RATE O2 CONC 1 E1390 [facility] 7 HOME HOME 85%/>02 MEDICAL MEDICAL CONC AT EQUIPME EQUIPME PRSC FLW RATE ANES 38035 ANESTHESI KEYS INTEG SYS 7 A ELEC ASSOCIATE CONVERSI[place] [address] [facility] MAGNESIUM [address] [place] [address] NATRIURET [address] [place] [address] [facility] THYROID [address] [place] [address] STIMULATI NG HORMONE TSH INJECTION J2704 [facility] PROPOFOL [address] [place] [address] 10 MG UNCLASSIF J3490 [facility] IED DRUGS [address] [place] [address] [address] ELECTIVE MEDICAL ARRHYTHMI G A EXTERNAL ECG 97090 [facility] ROUTINE [address] [place] [address] ECG W/LEAST 12 LDS TRCG ONLY W/O I&R COMPREHEN 14344 [facility] [address] [facility] METABOLIC PANEL ECG 15454 DIANNE JAMES ROUTINE 7 [facility] ECG MEDICAL W/LEAST G 12 LDS I&R ONLY O2 CONC 1 E1390 CRISTINO BRITT 7 HOME HOME 85%/>02 MEDICAL MEDICAL CONC AT EQUIPME EQUIPME PRSC FLW RATE ECG 42259 DIANNE JAMES ROUTINE 7 [facility] ECG MEDICAL W/LEAST G 12 LDS W/I&R COMPREHEN 39865 JUN BARAHONA SIVE 7 [facility] METABOLIC INC INC PANEL ECG 22758 JUN BARAHONA ROUTINE 7 [facility] ECG INC INC W/LEAST 12 LDS TRCG ONLY W/O I&R BLOOD 94319 JUN BARAHONA COUNT 7 [facility] COMPLETE INC INC AUTO&AUTO DIFRNTL WBC ECG 23387 JUN RUGGIERO ROUTINE 7 [facility] W/LEAST P 12 LDS I&R ONLY RADIOLOGI 17563 [place] OMAR C 7 MEDICAL EXAMINATI IMAGING ON CHEST ASS SINGLE VIEW FRONTAL UNCLASSIF J3490 JUN BARAHONA IED DRUGS 7 [facility] INC INC CREATINE 47035 JUN BARAHONA KINASE MB 7 [facility] [place] [address] JUN BARAHONA THYROID 7 [facility] STIMULATI [place] [address] JUN BARAHONA AMYLASE 7 [facility] INC INC FIBRIN 38978 JUN BARAHONA DGRADJ 7 [facility] PRODUCTS INC INC D-DIMER QUAL/[place] [address] JUN BARAHONA LIPASE 7 [facility] INC INC CREATINE 38693 JUN BARAHONA KINASE 7 [facility] TOTAL INC INC AMB A[address] [facility] 7 AMBULANCE AMBULANCE ALS SERVICE SERVICE EMERGENCY TRANSPORT LEVEL 1 [place] [address] JUN BARAHONA THYROXINE 7 [facility] TOTAL INC INC THYROID 99839 JUN JUN HORM 7 [facility] UPTK/THYR INC INC OID HORMONE BINDING RATIO NATRIURET 77877 JUN BARAHONA IC 7 [facility] [place] [address] JUN BARAHONA TROPONIN 7 [facility] QUANTITAT INC INC ELVIRA GROUND A0425 [facility] 7 AMBULANCE AMBULANCE PER SERVICE SERVICE STATUTE MILE ADLT SZD T4528 ACTIVSTYL ACTIVSTYL DISPBL 7 E E INCONT PROD UNDWEAR XTRA LG EA INCONTINE T4541 ACTIVSTYL ACTIVSTYL NCE 7 E E PRODUCT DISPOSABL E UNDPAD LARGE EA O2 CONC 1 E1390 CRISTINO GREGG [place] 7 HOME HOME 85%/>02 MEDICAL MEDICAL CONC AT EQUIPME EQUIPME [facility] FLW RATE CYANOCOBA 12806 COMBINED COMBINED MIHAELA 7 PHYSICIAN PHYSICIAN VITAMIN S LA S LA B-12 IRON 73129 COMBINED COMBINED BINDING 7 PHYSICIAN PHYSICIAN CAPACITY S LA S LA COMPREHEN 73580 COMBINED COMBINED SIVE 7 PHYSICIAN PHYSICIAN [place] [address] COMBINED COMBINED IRON 7 PHYSICIAN PHYSICIAN S LA S LA O2 CONC 1 E1390 CRISTINO GREGG [place] 7 HOME HOME 85%/>02 MEDICAL MEDICAL CONC AT EQUIPME EQUIPME [facility] FLW RATE AMB A[address] [facility] 7 AMBULANCE AMBULANCE ALS SERVICE SERVICE EMERGENCY TRANSPORT LEVEL 1 GROUND A0425 [facility] 7 AMBULANCE AMBULANCE [place] [address] [place] F[place] ABDOMEN & 7 MEDICAL PELVIS IMAGING W/O ASS CONTRAST MATERIAL BLOOD 37797 JUN BARAHONA COUNT 6 [facility] COMPLETE INC INC AUTO&AUTO DIFRNTL WBC COMPREHEN 98901 JUN BARAHONA SIVE 6 [facility] [place] [address] JUN BARAHONA ABDOMEN & 6 [facility] PELVIS INC INC W/O CONTRAST MATERIAL IADNA-DNA 29489 JUN BARAHONA /RNA GI 6 [facility] PTHGN INC INC MULTIPLEX PROBE TQ 12-25 [place] [address] JUN BARAHONA LIPASE 6 [facility] INC INC O2 CONC 1 E1390 CRISTINO GREGG [place] 6 HOME HOME 85%/>02 [facility] FLW RATE ADLT SZD T4528 [facility] DISPBL 6 INCONT DELIVERED DELIVERED PROD INC INC UNDWEAR XTRA LG EA O2 CONC 1 E1390 CRISTINO GREGG [facility] PORT 6 HOME HOME 85%/>02 [facility] FLW RATE ADLT SZD T4528 HOME S[facility] LIVING CARE DISPBL 6 INCONT DELIVERED DELIVERED PROD INC INC UNDWEAR XTRA LG EA O2 CONC 1 E1390 CRISTINO HARRELLRELL [place] 6 HOME HOME 85%/>02 MEDICAL MEDICAL CONC AT EQUIPME [facility] FLW RATE ADLT SZD T4528 HOME CARE RICE JAM DISPBL 6 INCONT DELIVERED PROD INC UNDWEAR XTRA LG EA O2 CONC 1 E1390 CRISTINO GODINEZ DEL [facility] 6 HOME PROSPER 85%/>02 MEDICAL CONC AT [facility] FLW RATE COMPREHEN 43006 COMBINED MCKEON SIVE 6 PHYSICIAN CASTRO METABOLIC S LA PANEL COLLECTIO 54973 FAMILY MARCO A N VENOUS 6 CARE MARZENA BLOOD ASSOCIATE VENIPUNCT S URE ADLT SZD T4528 [facility] DISPBL 6 INCONT DELIVERED DELIVERED PROD INC INC UNDWEAR XTRA LG EA O2 CONC 1 E1390 [facility] 6 HOME HOME 85%/>02 MEDICAL MEDICAL CONC [facility] FLW RATE MYOCARDIA 94059 ZUHAIR Boudreaux SPECT 6 MEDICAL CHERELLE MULTIPLE IMAGING STUDIES ASS TECHNETIU A9500 JUN iFsher TC-99M 6 [facility] HOSP SESTAMIBI INC INC DX PER STUDY DOSE CV STRS 40214 JUN RODGERS JR TST 6 [facility] RX CONT P ECG W/O I&R CV STRS 53818 JUN BARAHONA TST 6 [facility] HOSP XERS&/OR INC INC RX CONT ECG TRCG ONLY CV STRS 60830 JUN RODGERS JR TST 6 [facility] RX CONT P ECG I&R ONLY WALKER E0143 CRISTINO HARRELLRELL [place] 6 HOME HOME WHEELED MEDICAL MEDICAL ADJUSTABL EQUIPME EQUIPME E/FIXED HEIGHT AFO L1970 PROGRESSI JAMAR PLASTIC 6 VE MOUNA WITH PODIATRY ANKLE JOINT CUSTOM FABRICATE D ADD LW L2275 PROGRESSI JAMAR EXTRM 6 VE MOUNA VARUS/VUL PODIATRY MAURISIO MALISSA PLSTC MOD PADD/LN ADLT SZD T4528 [facility] DISPBL 6 INCONT DELIVERED DELIVERED PROD INC INC UNDWEAR XTRA LG [facility] ECG MEDICAL W/LEAST G 12 LDS W/I&R O2 CONC 1 E1390 CRISTINO GREGG [place] 6 HOME HOME 85%/>02 MEDICAL MEDICAL CONC AT EQUIPME EQUIPME [facility] FLW RATE ADLT SZD T4528 HOME [facility]ENIOR LIVING CARE DISPBL 6 INCONT DELIVERED DELIVERED PROD INC INC UNDWEAR XTRA LG EA O2 CONC 1 E1390 CRISTINO GREGG [place] 6 HOME HOME 85%/>02 MEDICAL MEDICAL CONC AT EQUIPME EQUIPME [facility] [place] LOWER 23[address] [place] OMAR EXTREMITY 6 MEDICAL CHERELLE W/O IMAGING CONTRAST ASS MATERIAL ADLT SZD T4528 [facility] DISPBL 6 INCONT DELIVERED DELIVERED PROD INC INC UNDWEAR XTRA LG EA BLOOD 27646 JUN BARAHONA COUNT 6 [facility] COMPLETE INC INC AUTO&AUTO DIFRNTL WBC HEPATITIS 51288 JUN BARAHONA C 6 [facility] ANTIBODY INC INC COLLECTIO 98790 JUN BARAHONA N VENOUS 6 [facility] BLOOD INC INC VENIPUNCT URE HEPATITIS 05119 JUN BARAHONA A 6 [facility] ANTIBODY INC INC HAAB INJECTION J3301 FALLIS JAMAR 6 TRIAMCINO LONE [place] N[place] [address] [place] [address] JUN BARAHONA HEPATITIS 6 [facility] B INC INC SURFACE ANTIGEN HEPATITIS 10805 JUN Lam CORE 6 [facility] ANTIBODY INC INC HBCAB TOTAL HEPATITIS 13856 JUN Lam SURF 6 [facility] ANTIBODY INC INC HBSAB BASIC 24427 JUN BARAHONA METABOLIC 6 [facility] PANEL INC INC CALCIUM TOTAL ARTHROCEN 18849 FALLIS JAMAR TESIS 6 ASPIR&/IN J INTERM JT/BURS W/O US HEMOGLOBI 12069 JUN BARAHONA N 6 [facility] GLYCOSYLA INC INC GARRETT A1C RADIOLOGI 87450 [facility]RE[facility] ALL C 6 MEDICAL EXAMINATI IMAGING ON ANKLE ASS 2 VIEWS INJECTION J3301 FALLIS JAMAR 6 TRIAMCINO LONE ACETONIDE NOS 10 MG ARTHROCEN FALLIS JAMAR TESIS 6 ASPIR&/IN J INTERM JT/BURS W/O US ADLT SZD T4528 [facility] DISPBL 6 INCONT DELIVERED DELIVERED Oony INC UNDWEAR XTRA LG EA RADIOLOGI 31682 [facility] C 6 MEDICAL EXAMINATI IMAGING ON [place] [address] [place] [address] [facility] CHATMANOMAR HEAD/BRAI 6 MEDICAL CHERELLE N W/[place] [address] [facility] ALL CERVICAL 6 MEDICAL SPINE W/O IMAGING CONTRAST ASS MATERIAL AMB A[address] [facility] SERVICE 6 AMBULANCE AMBULANCE ALS SERVICE SERVICE EMERGENCY TRANSPORT LEVEL 1 GROUND [facility]0425 [facility] [place] [address] FAMILY MAR[place] A 6 CARE [place] METATARSA ASSOCIATE L S FRACTURE W/O MANIPULAT ION WALKING L4360 [facility] BOOT 6 TECHNOLOG TECHNOLOG PNEUMATC IES INC IES INC &/ VACUUM PREFAB CUSTM FIT AMB A[address] [facility] SERVICE 6 AMBULANCE AMBULANCE ALS SERVICE SERVICE EMERGENCY TRANSPORT LEVEL 1 GROUND A0425 [facility] PER SERVICE SERVICE STATUTE MILE ECG 16034 [facility] 6 [facility] ECG MEDICAL W/LEAST G 12 LDS W/I&R RADIOLOGI 64852 [facility] ALL C 6 MEDICAL EXAMINATI IMAGING ON CHEST ASS SINGLE VIEW FRONTAL COMPREHEN 28769 COMBINED COMBINED SIVE 6 PHYSICIAN PHYSICIAN METABOLIC S LA S LA PANEL CYANOCOBA 06693 COMBINED COMBINED MIHAELA 6 PHYSICIAN PHYSICIAN VITAMIN S LA S LA B-12 ECG 83742 JUN RUGGIERO ROUTINE 6 [facility] W/LEAST P 12 LDS I&R ONLY ECG 10031 [facility] BRAAHONA ROUTINE 6 [facility] ECG INC INC W/LEAST 12 LDS TRCG ONLY W/O I&R RADEX HIP 82631 [facility]UN BARAHONA 5 [facility] UNILATERA INC INC L COMPLETE MINIMUM 2 VIEWS RADEX 62619 JUN BARAHONA SPINE 5 [facility] LUMBOSACR INC INC AL MINIMUM 4 VIEWS RADEX 45803 JUN BARAHONA ANKLE 5 [facility] COMPLETE INC INC MINIMUM 3 VIEWS GROUND A[address] [facility] MILEAGE 5 AMBULANCE AMBULANCE PER SERVICE SERVICE STATUTE MIL AMBULANCE A[address] [facility] SERVICE 5 AMBULANCE AMBULANCE BLS SERVICE [place] [address] JUN BARAHONA MAGNESIUM 5 [facility] INC INC BASIC 51319 JUN BARAHONA METABOLIC 5 [facility] PANEL INC INC CALCIUM TOTAL COLLECTIO 09692 JUN BARAHONA N VENOUS 5 [facility] BLOOD INC INC VENIPUNCT URE ECG 36693 JUN BARAHONA ROUTINE 5 [facility] ECG INC INC W/LEAST 12 LDS TRCG ONLY W/O I&R ECG 13208 JUN RUGGIERO ROUTINE 5 [facility] W/LEAST P 12 LDS I&R ONLY ECG 08696 [facility] J[facility] ROUTINE 5 [facility] ECG MEDICAL W/LEAST G 12 LDS W/I&R ECG 97403 [facility] JAMES ROUTINE 5 [facility] ECG MEDICAL W/LEAST G 12 LDS I&R ONLY HOSPITAL 61567 [facility] DAY MEDICAL MANAGEMEN G T 30 MIN/< SBSQ 37113 [facility] 5 [facility] CARE/DAY MEDICAL 25 G MINUTES ECG 44372 [facility] 5 [facility] ECG MEDICAL W/LEAST G 12 LDS I&R ONLY ECG 35321 [facility] ROUTINE 5 [facility] ECG MEDICAL MEDICAL W/LEAST G G 12 LDS W/I&R RADEX 71686 [facility] ALL SPINE 5 MEDICAL THORACIC IMAGING 2 VIEWS ASS RADIOLOGI 77844 [place] ALL C 5 MEDICAL EXAMINATI IMAGING ON PELVIS ASS 1/2 VIEWS RADEX 75936 [place] FREITAS ALL SHOULDER 5 MEDICAL COMPLETE IMAGING MINIMUM 2 ASS VIEWS RADEX 00983 [place] FREIT[facility] ALL SPINE 5 MEDICAL LUMBOSACR IMAGING AL ASS MINIMUM [address] LOWER 72927 JUN BARAHONA EXTREMITY 5 [facility] W/O INC INC CONTRAST MATERIAL INJECTION J2785 JUN BARAHONA 5 [facility] REGADENOS INC INC ON 0.1 MG CV STRS 33461 JUN BARAHONA TST 5 [facility] XERS&/OR INC INC RX CONT ECG TRCG ONLY CV STRS 38632 JUN RUGGIERO TST 5 [facility] RX CONT P ECG I&R ONLY TECHNETIU A9500 JUN Fisher TC-99M 5 [facility] SESTAMIBI INC INC DX PER STUDY DOSE MYOCARDIA 85371 [place] OMAR L SPECT 5 MEDICAL CHERELLE MULTIPLE IMAGING STUDIES ASS XTRNL ECG [address] [facility] S RHYTHM P W/I&R UP TO 48 HRS EXTERNAL 17177 JUN BARAHONA ECG 5 [facility] SCANNING INC INC ANALYSIS REPORT XTRNL ECG 32720 JUN BARAHONA & 48 HR 5 [facility] RECORDING INC INC COMPREHEN 82018 COMBINED COMBINED SIVE 5 PHYSICIAN PHYSICIAN METABOLIC S LA S LA PANEL ECG 54392 JUN BARAHONA ROUTINE 5 [facility] ECG INC INC W/LEAST 12 LDS TRCG ONLY W/O I&R ECG 28534 JUN RODGERS JR ROUTINE 5 [facility] W/LEAST P 12 LDS I&R ONLY COLLECTIO 41536 [facility] [place] N VENOUS 5 CARE [facility] BLOOD ASSOCIATE VENIPUNCT S URE HEMOGLOBI 60779 FAMILY [facility] A N 5 CARE [facility] GLYCOSYLA ASSOCIATE GARRETT A1C S BASIC 61518 COMBINED COMBINED METABOLIC 5 PHYSICIAN PHYSICIAN PANEL S LA S LA CALCIUM TOTAL ECG 26972 JUN RUGGIERO ROUTINE 5 [facility] [facility] W/LEAST P 12 LDS I&R ONLY RADIOLOGI 26532 JUN BARAHONA C EXAM 5 [facility] CHEST 2 INC INC VIEWS FRONTAL&L ATERAL ECG 27698 JUN BARAHONA ROUTINE 5 [facility]P ECG INC INC W/LEAST 12 LDS TRCG ONLY W/O I&R GROUND A[address] [facility] MILEA 5 AMBULANCE AMBULANCE PER SERVICE SERVICE STATUTE MILE AMBULANCE A[address] [facility] SERVICE 5 AMBULANCE AMBULANCE BLS SERVICE SERVICE [facility] 35097 [facility] CLARISSA DISCHARGE 4 NE [facility] KATY DAY MEDICAL MANAGEMEN G T 30 MIN/< DUP-SCAN 94841 [facility] CHESTER THO XTR VEINS 4 NE [facility] COMPLETE MEDICAL G BILATERAL STUDY DUPLEX 92527 [facility] CL[facility] SCAN 4 NE [facility] EXTRACRAN MEDICAL IAL ART G COMPL BI STUDY ANGIOCARD 8853 [facility] IOGRAPHY [address] [place] [address] OF LEFT HEART STRUCTURE S PERQ 0066 [facility] [address] NAL CORONARY ANGIOPLAS TY PTCA PROCEDURE 0040 [facility] ON [address] [place] [address] SINGLE VESSEL LEFT [address] CARDIAC CATHETERI ZATION CORONARY 8856 [facility] ARTERIOGR [address] [place] [address] APHY USING TWO CATHETERS CATH PLMT 39185 [place] [facility] [facility] HRT & 4 [facility] NAFISA ARTS MEDICAL W/NJX & G ANGIO IMG S&I ECHO 42949 DIANNE ROMO TTHRC R-T 4 [facility] KATY 2D MEDICAL W/WOM-MOD G E COMPL SPEC&COLR D PRQ 23347 DIANNE WANG TRLUML 4 NE [facility] NAFISA CORONARY MEDICAL ANGIOPLAS G TY ONE ART/BRANC H ECG 08452 [facility] THO ROUTINE 4 [facility] ECG MEDICAL W/LEAST G 12 LDS I&R ONLY INITIAL 31118 [facility] 4 NE [facility] LIS CARE/DAY MEDICAL 70 G MINUTES AMBULANCE A[address] [facility] SERVICE 4 AMBULANCE AMBULANCE BLS SERVICE SERVICE EMERGENCY TRANSPORT [facility]25 [facility]ANCE AM[facility] PER SERVICE SERVICE STATUTE MILE AMB A[facility] [facility] SERVICE 4 AMBULANCE AMBULANCE ALS SERVICE SERVICE EMERGENCY TRANSPORT LEVEL 1 ECG 51521 [facility] CHESTER THO ROUTINE 4 NE [facility] ECG MEDICAL W/LEAST G 12 LDS I&[place] [address] ZUHAIR BEINEKE HEAD/BRAI 4 MEDICAL PARKER N W/O IMAGING CONTRAST ASS MATERIAL RADIOLOGI 08247 [facility] CHATMANOMAR C EXAM 4 MEDICAL CHERELLE CHEST 2 IMAGING VIEWS ASS FRONTAL&[place] [address] ZUHAIR BEINEKE ABDOMEN & 4 MEDICAL PARKER PELVIS IMAGING W/[place] [address] ERENDIRAY BEINEKE CERVICAL 4 MEDICAL PARKER SPINE W/[place] [address] ERENDIRAY BEINEKE CERVICAL 4 MEDICAL PARKER SPINE W/[place] [address] ERENDIRAY BEINEKE HEAD/BRAI 4 MEDICAL PARKER N W/O IMAGING CONTRAST ASS MATERIAL CT LUMBAR 03417 [facility] BEINEKE SPINE 4 MEDICAL PARKER W/O IMAGING CONTRAST ASS MATERIAL AMB A[address] [facility] SERVICE 4 AMBULANCE AMBULANCE ALS SERVICE SERVICE EMERGENCY TRANSPORT LEVEL 1 GROUND [facility]0425 [facility]ANCE AM[facility]UL[facility] PER SERVICE SERVICE STATUTE MILE GROUND A0425 [facility] 4 AMBULANCE AMBULANCE PER SERVICE SERVICE STATUTE MILE AMB A[address] [facility] SERVICE 4 AMBULANCE AMBULANCE ALS SERVICE SERVICE [place] [address] ZUHAIR CHATMANUTCHER HEAD/BRAI 4 MEDICAL CHERELLE N W/O IMAGING CONTRAST ASS MATERIAL RADIOLOGI 73808 ZUHAIR OMAR C 4 MEDICAL CHERELLE EXAMINATI IMAGING ON CHEST ASS SINGLE VIEW FRONTAL RADIOLOGI 47266 [facility] OMAR C EXAM 4 MEDICAL CHERELLE CHEST 2 IMAGING VIEWS ASS FRONTAL&L ATERAL O2 CONC 1 E1390 [facility]STINO [place] 4 HOME HOME 85%/>02 MEDICAL MEDICAL CONC AT EQUIPME EQUIPME PRS FLW RATE O2 CONC 1 E1390 [facility]INO [facility]RISTINO [place] 4 HOME HOME 85%/>02 MEDICAL MEDICAL CONC AT EQUIPME EQUIPME [facility] FLW RATE RADEX HIP 04183 [facility] OMAR 4 MEDICAL CHERELLE UNILATERA IMAGING L ASS COMPLETE MINIMUM 2 VIEWS RADIOLOGI 13082 [facility] OMAR C 4 MEDICAL CHERELLE EXAMINATI IMAGING ON PELVIS ASS 1/2 VIEWS RADIOLOGI 72114 [facility] OMAR C 4 MEDICAL CHERELLE EXAMINATI IMAGING ON KNEE 3 ASS VIEWS KNEE L1830 [facility]. ORTHOSIS 4 IMMOBLIZE R CANVAS LONGTUDNL PREFAB GROUND A0425 [facility] 4 AMBULANCE AMBULANCE PER SERVICE SERVICE STATUTE MILE AMBULANCE A[address] [facility] SERVICE 4 AMBULANCE AMBULANCE BLS SERVICE SERVICE EMERGENCY TRANSPORT BLOOD 20157 FAMILY FAMILY COUNT 4 CARE CARE COMPLETE ASSOCIATE ASSOCIATE AUTO&AUTO S S DIFRNTL WBC O2 CONC 1 E1390 [facility] [place] 4 HOME HOME 85%/>02 MEDICAL MEDICAL CONC [place] [address] ZUHAIR CHATMANUTCHER HEAD/BRAI 4 MEDICAL CHERELLE N W/O IMAGING CONTRAST ASS MATERIAL O2 CONC 1 E1390 [facility]STINO [facility]ST[facility] [place] 4 HOME HOME 85%/>02 MEDICAL MEDICAL CONC AT EQUIPME EQUIPME [facility] [place] R[place] O2 CONC 1 E1390 [facility] HOME HOME 85%/>02 [facility] E[facility] AM[facility]ULANCE A0429 [facility] 4 AMBULANCE AMBULANCE BLS SERVICE SERVICE EMERGENCY TRANSPORT GROUND A0425 [facility] 4 AMBULANCE AMBULANCE PER SERVICE SERVICE STATUTE MILE O2 CONC 1 E1390 [facility] HOME HOME 85%/>02 MEDICAL MEDICAL CONC AT EQUIPME EQUIPME [facility] FLW RATE AMBULANCE A[address] [facility] SERVICE 4 AMBULANCE AMBULANCE BLS SERVICE SERVICE EMERGENCY TRANSPORT GROUND A0425 [facility] 4 AMBULANCE AMBULANCE PER SERVICE SERVICE STATUTE MILE PRTBLE E0431 [facility] MATHI[facility] GASEOUS 4 HOSP HOSP O2 SYS EQUIP EQUIP RENT; FLWMTR HUMIDFR&M ASK GROUND [address] [place] [address] 4 AMBULANCE AMBULANCE PER SERVICE SERVICE STATUTE MILE AMBULANCE A0429 [facility] 4 AMBULANCE AMBULANCE BLS SERVICE [place] [address] OMAR OMAR HEAD/BRAI 4 CHERELLE CHERELLE N W/O CONTRAST MATERIAL O2 CONC 1 E1390 MEY MATHIAS [place] 4 HOSP HOSP 85%/>02 EQUIP EQUIP CONC AT [facility] FLW RATE PRTBLE E0431 [facility] GASEOUS 4 HOSP HOSP O2 SYS EQUIP EQUIP RENT; FLWMTR HUMIDFR&M ASK O2 CONC 1 E1390 [facility] [place] 4 HOSP HOSP 85%/>02 EQUIP EQUIP CONC AT [facility] FLW RATE AMBULANCE A[address] [facility] SERVICE 4 AMBULANCE AMBULANCE BLS SERVICE SERVICE EMERGENCY TRANSPORT GROUND [address] [place] [address] 4 AMBULANCE AMBULANCE PER SERVICE SERVICE STATUTE MILE RADIOLOGI 24609 OMAR OMAR C 4 CHERELLE CHERELLE EXAMINATI ON CHEST SINGLE VIEW FRONTAL PRTBLE E0431 [facility] GASEOUS 3 HOSP HOSP O2 SYS EQUIP EQUIP RENT; FLWMTR HUMIDFR&M ASK O2 CONC 1 E1390 [facility] [place] 3 HOSP HOSP 85%/>02 EQUIP EQUIP CONC AT PRS FLW RATE PRTBLE E0431 [facility] GASEOUS 3 HOSP HOSP O2 SYS EQUIP EQUIP RENT; FLWMTR HUMIDFR&M ASK O2 CONC 1 E1390 [facility] [place] [facility] HOSP HOSP 85%/>02 EQUIP EQUIP CONC AT PRS FLW R[place] PRTBLE E0431 [facility] GASEOUS 3 HOSP HOSP O2 SYS EQUIP EQUIP RENT; FLWMTR HUMIDFR&M ASK O2 CONC 1 E1390 [facility] [place] [facility] HOSP HOSP 85%/>02 EQUIP EQUIP CONC AT PRS FLW R[place] PRTBLE E0431 [facility] MATHI[facility] GASEOUS 3 HOSP HOSP O2 SYS EQUIP EQUIP RENT; ARWCTR HUMIDFR&M ASK O2 CONC 1 E1390 [facility] [place] 3 HOSP HOSP 85%/>02 EQUIP EQUIP CONC AT PRS [place]W R[place] MYOCARDIA 33370 OMAR OMAR L SPECT 3 CHERELLE CHERELLE SINGLE STUDY AT REST OR STRESS TECHNETIU A9500 JUN Fisher TC-99M 3 [facility] SESTAMIBI INC INC DX PER STUDY DOSE CV STRS 83876 JUN BARAHONA TST 3 [facility] XERS&/OR INC INC RX CONT ECG TRCG ONLY INJECTION J2785 JUN BARAHONA 3 [facility] REGADENOS INC INC ON 0.1 MG ECHO 36620 JUN BARAHONA TTHRC R-T 3 [facility] 2D INC INC W/WOM-MOD E COMPL SPEC&COLR D CV STRS 24581 ANA MARIA RODGERS JR TST 3 DWI DWI XERS&/OR RX CONT ECG I&R ONLY PRTBLE E0431 [facility] GASEOUS 3 HOSP HOSP O2 SYS EQUIP EQUIP RENT; FLWMTR HUMIDFR&[place] [address] OMAR OMAR HEAD/BRAI 3 CHERELLE CHERELLE N W/O CONTRAST MATERIAL O2 CONC 1 E1390 [facility] [place] [facility] HOSP HOSP 85%/>02 EQUIP EQUIP CONC AT [facility] [place] R[place] RADEX 47450 OMAR OMAR SPINE 3 CHERELLE CHERELLE CERVICAL 2 OR 3 VIEWS RADEX 47104 OMAR OMAR SPINE 3 CHERELLE CHERELLE THORACIC 3 VIEWS RADIOLOGI 19590 OMAR OMAR C 3 CHERELLE CHERELLE EXAMINATI ON PELVIS 1/2 VIEWS RADEX 34565 JUN BARAHONA SPINE 3 [facility] CERVICAL INC INC 4 OR 5 VIEWS RADEX 72434 JUN BARAHONA SPINE 3 [facility]OS[facility] LUMBOSACR INC INC AL MINIMUM 4 VIEWS RADEX 05351 OMAR OMAR SPINE 3 CHERELLE CHERELLE LUMBOSACR AL 2/3 VIEWS THERAPEUT 98548 JUN BARAHONA IC 3 [facility] PROPHYLAC INC INC TIC/DX INJECTION SUBQ/IM PRTBLE E0431 MEY ROTHERTS GASEOUS 3 HOSP HOSP O2 SYS EQUIP EQUIP RENT; FLWMTR HUMIDFR&M ASK O2 CONC 1 E1390 [facility] [place] [facility] HOSP HOSP 85%/>02 EQUIP EQUIP CONC AT [facility] FLW RATE PRTBLE E0431 MEY CARVAJALERTS GASEOUS 3 HOSP HOSP O2 SYS EQUIP EQUIP RENT; FLWMTR HUMIDFR&M ASK SPMTRY 40038 JUN BARAHONA W/VC 3 [facility] EXPIRATOR INC INC Y CLAUDIA W/WO MXML VOL VNTJ O2 CONC 1 E1390 [facility] [place] [facility]P HOSP 85%/>02 EQUIP EQUIP CONC AT [facility] FLW R[place] PRTBLE E0431 MEY ROTHERTS GASEOUS 3 HOSP HOSP O2 SYS EQUIP EQUIP RENT; FLWMTR HUMIDFR&M ASK 3D 56152 JUN BARAHONA RENDERING 3 [facility] INC INC W/INTERP& POSTPROC DIFF WORK STATION LOCM Q9967 JUN BARAHONA 300-399 3 [facility] MG/ML INC INC IODINE CONCENTRA TION PER ML CT THORAX 32323 JUN BARAHONA 3 [facility] W/CONTRAS INC INC T MATERIAL O2 CONC 1 E1390 [facility] [place] 3 HOSP HOSP 85%/>02 EQUIP EQUIP CONC AT [facility] [place] COMPREHEN 41332 COMBINED COMBINED SIVE 3 PHYSICIAN PHYSICIAN METABOLIC S LA S LA PANEL PRTBLE E0431 [facility] GASEOUS 3 HOSP HOSP O2 SYS EQUIP EQUIP RENT; FLWMTR HUMIDFR&M ASK O2 CONC 1 E1390 [facility] [place] 3 HOSP HOSP 85%/>02 EQUIP EQUIP CONC AT PRS FLW RATE ECG 21029 JUN BARAHONA ROUTINE 3 [facility] ECG INC INC W/LEAST 12 LDS TRCG ONLY W/O I&R PRTBLE E0431 [facility] MATHI[facility] GASEOUS 3 HOSP HOSP O2 SYS EQUIP EQUIP RENT; FLWMTR HUMIDFR&M ASK O2 CONC 1 E1390 [facility] [place] 3 HOSP HOSP 85%/>02 EQUIP EQUIP CONC AT PRS FLW RATE PRTBLE E0431 MEY MATHIAS GASEOUS 3 HOSP HOSP O2 SYS EQUIP EQUIP RENT; FLWMTR HUMIDFR&M ASK O2 CONC 1 E1390 [facility] [place] 3 HOSP HOSP 85%/>02 EQUIP EQUIP CONC AT PRS [place] BASIC 53323 JUN BARAHONA METABOLIC 2 [facility] PANEL INC INC CALCIUM TOTAL CREATINE 44923 JUN BARAHONA KINASE 2 [facility] TOTAL INC INC AMB A[address] [facility] 2 AMBULANCE AMBULANCE ALS SERVICE SERVICE EMERGENCY TRANSPORT LEVEL 1 [facility]0425 [facility] AM[facility] [place] [address] JUN BARAHONA TROPONIN 2 [facility] QUANTITAT INC INC ELVIRA ECG 23462 JUN MILLENIUM ROUTINE 2 [facility] ECG INC LABORATOR W/LEAST IES OF CA 12 LDS TRCG ONLY W/O I&R BLOOD 49749 JUN BARAHONA COUNT 2 [facility] COMPLETE INC INC AUTO&AUTO DIFRNTL WBC RADIOLOGI 69046 OMAR OMAR C 2 CHERELLE CHERELLE EXAMINATI ON CHEST SINGLE VIEW FRONTAL ECG 41014 BAHMAN RUGGIERO ROUTINE 2 CHANEL CHANEL ECG W/LEAST 12 LDS I&R ONLY CREATINE 82848 JUN BARAHONA KINASE MB 2 [facility] [place] [address] JUN BARAHONA FREE 2 [facility] [place] [address] JUN BARAHONA THYROID 2 [facility] STIMULAT[place] [address] JUN ROBERTSON TRIIODOTH 2 [facility] YRONINE INC INC T3 TOTAL TT3 CYANOCOBA 25366 COMBINED COMBINED MIHAELA 2 PHYSICIAN PHYSICIAN VITAMIN S LA S LA B-12 25 18050 COMBINED COMBINED HYDROXY 2 PHYSICIAN PHYSICIAN INCLUDES S [place] [address] COMBINED COMBINED THYROID 2 PHYSICIAN PHYSICIAN STIMULATI S LA S LA NG HORMONE TSH COMPREHEN 52606 COMBINED COMBINED SIVE 2 PHYSICIAN PHYSICIAN METABOLIC S LA S LA PANEL CULTURE 95121 COMBINED COMBINED BACTERIAL 2 PHYSICIAN PHYSICIAN S LA S LA QUANTTATI VE COLONY COUNT URINE PRTBLE E0431 [facility]ATHIAS GASEOUS 2 HOSP HOSP O2 SYS EQUIP EQUIP RENT; FLWMTR HUMIDFR&M ASK O2 CONC 1 E1390 [facility] [place] 2 HOSP HOSP 85%/>02 EQUIP EQUIP CONC AT [facility] FLW RATE GROUND A[address] [facility] 2 AMBULANCE AMBULANCE PER SERVICE SERVICE STATUTE MILE AMBULANCE A[address] [facility] SERV[facility] 2 AMBULANCE AMBULANCE BLS SERVICE SERVICE EMERGENCY TRANSPORT PRTBLE E0431 [facility] M[facility] GASEOUS 2 HOSP HOSP O2 SYS EQUIP EQUIP RENT; FLWMTR HUMIDFR&M ASK O2 CONC 1 E1390 [facility] [place] 2 HOSP HOSP 85%/>02 EQUIP EQUIP CONC AT [facility] FLW RATE PRTBLE E0431 MEY MATHIAS GASEOUS 2 HOSP HOSP O2 SYS EQUIP EQUIP RENT; FLWMTR HUMIDFR&M ASK O2 CONC 1 E1390 [facility] [place] 2 HOSP HOSP 85%/>02 EQUIP EQUIP CONC AT [facility] FLW RATE PRTBLE E0431 MEY MATHIAS GASEOUS 2 HOSP HOSP O2 SYS EQUIP EQUIP RENT; FLWMTR HUMIDFR&M ASK GROUND A0425 [facility] AM[facility]UL[facility] PER SERVICE SERVICE STATUTE MILE AMB A0427 [facility] 2 AMBULANCE AMBULANCE ALS SERVICE SERVICE EMERGENCY TRANSPORT LEVEL 1 O2 CONC 1 E1390 [facility] [place] 2 HOSP HOSP 85%/>02 EQUIP EQUIP CONC AT [facility] [place] [address] JUN BARAHONA LIPASE 2 [facility] INC INC GROUND A0425 [facility] AM[facility]ULANCE PER SERVICE SERVICE STATUTE MILE AMBULANCE A[address] [facility] 2 AMBULANCE AMBULANCE BLS SERVICE SERVICE EMERGENCY TRANSPORT BLOOD 18324 JUN BARAHONA COUNT 2 [facility] COMPLETE INC INC AUTO&[place] [address] JUN BARAHONA ABDOMEN & 2 [facility] PELVIS INC INC W/O CONTRAST MATERIAL COMPREHEN 69936 JUN BARAHONA SIVE 2 [facility] METABOLIC INC INC PANEL 3D 43350 JUN BARAHONA RENDERING 2 [facility] INC INC W/INTERP& POSTPROC DIFF WORK STATION PRTBLE E0431 MEY MATHIAS GASEOUS 2 HOSP HOSP O2 SYS EQUIP EQUIP RENT; FLWMTR HUMIDFR&M ASK O2 CONC 1 E1390 [facility] [place] 2 HOSP HOSP 85%/>02 EQUIP EQUIP CONC AT [facility] FLW RATE PRTBLE E0431 ROM[facility] HOYOS GASEOUS 2 HOME HOME O2 SYS MEDICAL MEDICAL RENT; EQUIP EQUIP FLWMTR HUMIDFR&[place] [address] JUN BARAHONA TROPONIN 2 [facility] QUANTITAT INC INC ELVIRA BLOOD 87092 JUN BARAHONA COUNT 2 [facility] COMPLETE INC INC AUTO&AUTO DIFRNTL WBC URNLS DIP 88857 JUN BARAHONA 2 [facility] STICK/TAB INC INC LET REAGENT AUTO MICROSCOP Y CREATINE 28345 JUN BARAHONA KINASE 2 [facility] TOTAL INC INC RHYTHM 26888 JUN BARAHONA ECG 1-3 2 [facility] LEADS INC INC TRACING ONLY W/O I&R CREATINE 33258 JUN BARAHONA KINASE MB 2 [facility] FRACTION INC INC ONLY COMPREHEN 57013 JUN BARAHONA SIVE 2 [facility] METABOLIC INC INC PANEL ECG 77200 JUN BARAHONA ROUTINE 2 [facility] ECG INC INC W/LEAST 12 LDS TRCG ONLY W/O I&R ECG 96925 JUN BARAHONA ROUTINE 2 [facility] W/LEAST P P 12 LDS I&R ONLY O2 CONC 1 E1390 [facility] VENEGAS PORT 2 HOME HOME 85%/>02 MEDICAL MEDICAL CONC AT EQUIP EQUIP PRSC FLW RATE PRTBLE E0431 ROM[facility] HOYOS GASEOUS 2 HOME HOME O2 SYS MEDICAL MEDICAL RENT; EQUIP EQUIP FLWMTR HUMIDFR&M ASK O2 CONC 1 E1390 [facility] VENEGAS PORT 2 HOME HOME 85%/>02 MEDICAL MEDICAL CONC AT EQUIP EQUIP PRSC FLW RATE URNLS DIP 75120 JUN BARAHONA 2 [facility] STICK/TAB INC INC LET REAGENT AUTO MICROSCOP Y PRTBLE E0431 [facility] HOYOS GASEOUS 2 HOME HOME O2 SYS MEDICAL MEDICAL RENT; EQUIP EQUIP FLWMTR HUMIDFR&M ASK O2 CONC 1 E1390 [facility] V[facility] PORT 2 HOME HOME 85%/>02 MEDICAL MEDICAL CONC AT EQUIP EQUIP PRSC FLW RATE PRTBLE E0431 [facility] HOYOS GASEOUS 2 HOME HOME O2 SYS MEDICAL MEDICAL RENT; EQUIP EQUIP FLWMTR HUMIDFR&M ASK O2 CONC 1 E1390 [facility] VEN[facility] PORT 2 HOME HOME 85%/>02 MEDICAL MEDICAL CONC AT EQUIP EQUIP PRSC FLW RATE AMB A[address] [facility] 2 AMBULANCE AMBULANCE ALS SERVICE SERVICE EMERGENCY TRANSPORT LEVEL [address] [facility] MILEAGE 2 AMBULANCE AMBULANCE PER SERVICE SERVICE STATUTE MILE RADIOLOGI 98547 JUN Machado 2 [facility] EXAMINATI INC INC ON PELVIS 1/2 VIEWS RADEX HIP 78032 JUN BARAHONA 2 [facility] UNILATERA INC INC L COMPLETE MINIMUM 2 VIEWS PRTBLE E0431 ROMAIN HOYOS GASEOUS 2 HOME HOME O2 SYS MEDICAL MEDICAL RENT; EQUIP EQUIP FLWMTR HUMIDFR&M ASK O2 CONC 1 E1390 [facility] HO[place] [place] 2 HOME HOME 85%/>02 MEDICAL MEDICAL CONC AT EQUIP EQUIP PRSC FLW RATE BLOOD 55489 MARCO A [place] COUNT 2 G G COMPLETE AUTO&AUTO DIFRNTL WBC URNLS DIP 90025 [facility]CO A [place] 2 G G STICK/TAB LET RGNT NON-AUTO W/O MICRSCP NONINVASI 48974 MARCO A [place] VE 2 G G EAR/PULSE OXIMETRY SINGLE DETER PRTBLE E0431 ROM[facility] HOYOS GASEOUS 1 HOME HOME O2 SYS MEDICAL MEDICAL RENT; EQUIP EQUIP FLWMTR HUMIDFR&M ASK PRTBLE E0431 [facility] HOYOS GASEOUS 1 HOME HOME O2 SYS MEDICAL MEDICAL RENT; EQUIP EQUIP FLWMTR HUMIDFR&M ASK O2 CONC 1 E1390 [facility] HO[place] 1 HOME HOME 85%/>02 MEDICAL MEDICAL CONC AT EQUIP EQUIP PRSC FLW RATE PRTBLE E0431 ROMAIN HOYOS GASEOUS 1 HOME HOME O2 SYS MEDICAL MEDICAL RENT; EQUIP EQUIP FLWMTR HUMIDFR&M ASK O2 CONC 1 E1390 [facility] HO[place] 1 HOME HOME 85%/>02 MEDICAL MEDICAL CONC AT EQUIP EQUIP PRSC FLW RATE PRTBLE E0431 ROMAIN HOYOS GASEOUS 1 HOME HOME O2 SYS MEDICAL MEDICAL RENT; EQUIP EQUIP FLWMTR HUMIDFR&M ASK O2 CONC 1 E1390 [facility] HO[place]OS [place] 1 HOME HOME 85%/>02 MEDICAL MEDICAL CONC AT EQUIP EQUIP PRSC FLW RATE PRTBLE E0431 ROMAIN HOYOS GASEOUS 1 HOME HOME O2 SYS MEDICAL MEDICAL RENT; EQUIP EQUIP FLWMTR HUMIDFR&M ASK O2 CONC 1 E1390 [facility] HO[place] [place] 1 HOME HOME 85%/>02 MEDICAL MEDICAL CONC AT EQUIP EQUIP PRSC FLW RATE PRTBLE E0431 ROMAIN HOYOS GASEOUS 1 HOME HOME O2 SYS MEDICAL MEDICAL RENT; EQUIP EQUIP FLWMTR HUMIDFR&M ASK O2 CONC 1 E1390 ROMAIN HOYOS [place] 1 HOME HOME 85%/>02 MEDICAL MEDICAL CONC AT EQUIP EQUIP PRSC FLW RATE AMBULANCE A[address] [facility] 1 AMBULANCE AMBULANCE BLS SERVICE SERVICE EMERGENCY TRANSPORT GROUND A0425 [facility] MILEAGE 1 AMBULANCE AMBULANCE PER SERVICE SERVICE STATUTE MILE RADEX 32437 JUN BARAHONA SPINE 1 [facility] LUMBOSACR INC INC AL MINIMUM 4 VIEWS RADEX 17322 [place] O[place] SPINE 1 MEDICAL CHERELLE CERVICAL IMAGING 4 OR 5 ASS VIEWS RADIOLOGI 41281 JUN BARAHONA C 1 [facility] EXAMINATI INC INC ON PELVIS 1/2 VIEWS RADEX 69596 JUN BARAHONA SPINE 1 [facility] CERVICAL INC INC 6 OR MORE VIEWS AMBULANCE A[address] [facility] SERV[facility] 1 AMBULANCE AMBULANCE BLS SERVICE SERVICE EMERGENCY TRANSPORT GROUND A[address] [facility] MILEAGE 1 AMBULANCE AMBULANCE PER SERVICE SERVICE STATUTE MILE PRTBLE E0431 ROMAIN HOYOS GASEOUS 1 HOME HOME O2 SYS MEDICAL MEDICAL RENT; EQUIP EQUIP FLWMTR HUMIDFR&M ASK COLSC FLX 67042 Jeannette DENNY W/RMNACHO 1 DENISHA PALOMARES OF TUMOR PSC POLYP LESION SNARE TQ ESOPHAGOG 97183 JUN BARAHONA ASTRODUOD 1 [facility] ENOSCOPY INC [place] [address] SURG 1 LG & PATHOLOGY DUBILIER GROSS&[place] [address] JUN BARAHONA INFUSION 1 [facility] THERAPY INC INC PROPHYLAX IS/DX EA HOUR ENDOSCOPI 4542 JUN BARAHONA C 1 [facility] POLYPECTO INC INC MY OF LARGE INTESTINE OTHER 4513 JUN BARAHONA ENDOSCOPY 1 [facility] OF SMALL INC INC INTESTINE O2 CONC 1 E1390 [facility] HOYOS [place] 1 HOME HOME 85%/>02 MEDICAL MEDICAL CONC AT EQUIP EQUIP PRSC FLW RATE BLOOD 21224 JUN BARAHONA COUNT 1 [facility] COMPLETE INC INC AUTO&AUTO DIFRNTL WBC GROUND A[address] [facility] MILEAGE 1 AMBULANCE AMBULANCE PER SERVICE SERVICE STATUTE MILE URNLS DIP 93207 JUN BARAHONA 1 [facility] STICK/TAB INC INC LET REAGENT AUTO MICROSCOP Y AMBULANCE A[address] [facility] SERVICE 1 AMBULANCE AMBULANCE BLS SERVICE SERVICE EMERGENCY TRANSPORT COMPREHEN 03876 [facility] SIVE 1 [facility] METABOLIC INC INC PANEL BLOOD 67216 FAMILY FAMILY COUNT 1 CARE CARE COMPLETE ASSOCIATE ASSOCIATE AUTO&AUTO S S DIFRNTL WBC PRTBLE E0431 [facility] GASEOUS 1 HOME HOME O2 SYS MEDICAL MEDICAL RENT; EQUIP EQUIP FLWMTR HUMIDFR&M ASK O2 CONC 1 E1390 [facility] [place] 1 HOME HOME 85%/>02 MEDICAL MEDICAL CONC AT EQUIP EQUIP PRSC FLW RATE PRTBLE E0431 [facility] GASEOUS 1 HOME HOME O2 SYS MEDICAL MEDICAL RENT; EQUIP EQUIP FLWMTR HUMIDFR&M ASK O2 CONC 1 E1390 [facility] 1 HOME HOME 85%/>02 MEDICAL MEDICAL CONC AT EQUIP EQUIP PRSC FLW RATE PRTBLE E0431 [facility] GASEOUS 1 HOME HOME O2 SYS MEDICAL MEDICAL RENT; EQUIP EQUIP FLWMTR HUMIDFR&M ASK O2 CONC 1 E1390 [facility] [place] PORT 1 HOME HOME 85%/>02 MEDICAL MEDICAL CONC AT EQUIP EQUIP PRSC FLW RATE PRTBLE E0431 [facility] GASEOUS 1 HOME HOME O2 SYS MEDICAL MEDICAL RENT; EQUIP EQUIP FLWMTR HUMIDFR&M ASK LIPID 49673 FAMILY MARCO A J PANEL 1 YARN HAULER S TRANSFERA 00101 FAMILY MARCO A J SE 1 CARE ASPARTATE ASSOCIATE AMINO S AST SGOT TRANSFERA 75426 FAMILY EASLEY SE 1 CARE HOMAR ALANINE ASSOCIATE AMINO ALT S SGPT O2 CONC 1 E1390 [facility] [place] PORT 1 HOME HOME 85%/>02 MEDICAL MEDICAL CONC AT EQUIP EQUIP PRSC FLW RATE PRTBLE E0431 [facility] GASEOUS 1 HOME HOME O2 SYS MEDICAL MEDICAL RENT; EQUIP EQUIP FLWMTR HUMIDFR&M ASK O2 CONC 1 E1390 [facility] [place] PORT 1 HOME HOME 85%/>02 MEDICAL MEDICAL CONC AT EQUIP EQUIP PRSC FLW RATE 3D 13629 [facility] R[facility]ERING 1 [facility] INC INC W/INTERP& POSTPROC DIFF WORK STATION ECHO 70847 JUN [facility] TTHRC R-T 1 [facility] 2D INC INC W/WOM-MOD E COMPL SPEC&COLR D CT LUMBAR 02716 J[facility] SPINE 1 [facility] W/O INC INC CONTRAST MATERIAL RADIOLOGI 74132 [facility] C EXAM 0 [facility] CHEST 2 INC INC VIEWS FRONTAL&L ATERAL BLOOD 18578 [facility] COUNT 0 [facility] COMPLETE INC INC AUTO&AUTO DIFRNTL WBC CREATINE 16163 J[facility] KINASE MB 0 [facility] FRACTION INC INC ONLY BASIC 97441 J[facility] METABOLIC 0 [facility] PANEL INC INC CALCIUM TOTAL CREATINE 75394 J[facility] KINASE 0 [facility] [place] [address] J[facility] TROPONIN 0 [facility] QUANTITAT INC INC ELVIRA NATRIURET 70688 [facility] IC 0 [facility] PEPTIDE INC INC URNLS DIP 76951 [facility] ROBERTSON 0 [facility] STICK/TAB INC INC LET REAGENT AUTO MICROSCOP Y AMBULANCE A[address] [facility] SERVICE 0 AMBULANCE AMBULANCE BLS SERVICE SERVICE EMERGENCY TRANSPORT GROUND A[address] [facility] MILEAGE 0 AMBULANCE AMBULANCE PER SERVICE SERVICE STATUTE MILE PRTBLE E0431 [facility] GASEOUS 0 HOME HOME O2 SYS MEDICAL MEDICAL RENT; EQUIP EQUIP FLWMTR HUMIDFR&M ASK O2 CONC 1 E1390 [facility] 0 HOME HOME 85%/>02 MEDICAL MEDICAL CONC AT EQUIP EQUIP PRSC FLW RATE PRTBLE E0431 [facility] GASEOUS 0 HOME HOME O2 SYS MEDICAL MEDICAL RENT; EQUIP EQUIP FLWMTR HUMIDFR&M ASK O2 CONC 1 E1390 [place] 0 HOME HOME 85%/>02 MEDICAL MEDICAL CONC AT EQUIP EQUIP PRSC FLW RATE GROUND A[address] [facility] MILEAGE 0 AMBULANCE AMBULANCE PER SERVICE SERVICE STATUTE MILE AMBULANCE A[address] [facility] SERVICE 0 AMBULANCE AMBULANCE BLS SERVICE SERVICE EMERGENCY TRANSPORT RADEX 31322 [facility] HAND 0 [facility] MINIMUM 3 INC INC VIEWS PRTBLE E0431 [facility] GASEOUS 0 HOME HOME O2 SYS MEDICAL MEDICAL RENT; EQUIP EQUIP FLWMTR HUMIDFR&M ASK O2 CONC 1 E1390 [facility] 0 HOME HOME 85%/>02 MEDICAL MEDICAL CONC AT EQUIP EQUIP PRSC FLW RATE PRTBLE E0431 [facility] GASEOUS 0 HOME HOME O2 SYS MEDICAL MEDICAL RENT; EQUIP EQUIP FLWMTR HUMIDFR&M ASK O2 CONC 1 E1390 [facility] 0 HOME HOME 85%/>02 MEDICAL MEDICAL CONC AT EQUIP EQUIP PRSC FLW RATE PRTBLE E0431 [facility] GASEOUS 0 HOME HOME O2 SYS MEDICAL MEDICAL RENT; EQUIP EQUIP FLWMTR HUMIDFR&M ASK O2 CONC 1 E1390 [place] 0 HOME HOME 85%/>02 MEDICAL MEDICAL CONC AT EQUIP EQUIP PRSC FLW RATE PRTBLE E0431 [facility] GASEOUS 0 HOME HOME O2 SYS MEDICAL MEDICAL RENT; EQUIP EQUIP FLWMTR HUMIDFR&M ASK O2 CONC 1 E1390 [facility] [place] 0 HOME HOME 85%/>02 MEDICAL MEDICAL CONC AT EQUIPMENT EQUIPMENT PRSC FLW RATE PRTBLE E0431 ROMAIN HOYOS GASEOUS 0 HOME HOME O2 SYS MEDICAL MEDICAL RENT; EQUIP EQUIP FLWMTR HUMIDFR&M ASK O2 CONC 1 E1390 ROMAIN HOYOS DEL PORT 0 HOME HOME 85%/>02 MEDICAL MEDICAL CONC AT EQUIPMENT EQUIPMENT PRSC FLW RATE PRTBLE E0431 ROMAIN HOYOS GASEOUS 0 HOME HOME O2 SYS MEDICAL MEDICAL RENT; EQUIP EQUIP FLWMTR HUMIDFR&M ASK O2 CONC 1 E1390 ROMAIN HOYOS DEL PORT 0 HOME HOME 85%/>02 MEDICAL MEDICAL CONC AT EQUIPMENT EQUIPMENT PRSC FLW RATE PRTBLE E0431 ROMAIN HOYOS GASEOUS 0 HOME HOME O2 SYS MEDICAL MEDICAL RENT; EQUIP EQUIP FLWMTR HUMIDFR&M ASK O2 CONC 1 E1390 ROMAIN HOYOS DEL PORT 0 HOME HOME 85%/>02 MEDICAL MEDICAL CONC AT EQUIPMENT EQUIPMENT PRSC FLW RATE GLUCOSE 90460 FAMILY MELO, POST 0 CARE Lior ESPINOZA GLUCOSE ASSOCIATE DOSE S BLOOD 11570 FAMILY MELO, COUNT 0 FANTASMA ESPINOZA COMPLETE ASSOCIATE AUTO&AUTO S DIFRNTL WBC PRTBLE E0431 ROMAIN HOYOS GASEOUS 0 HOME HOME O2 SYS MEDICAL MEDICAL RENT; EQUIP EQUIP FLWMTR HUMIDFR&M ASK O2 CONC 1 E1390 ROMAIN HOYOS DEL PORT 0 HOME HOME 85%/>02 MEDICAL MEDICAL CONC AT EQUIPMENT EQUIPMENT PRSC FLW RATE PRTBLE E0431 ROMAIN HOYOS GASEOUS 0 HOME HOME O2 SYS MEDICAL MEDICAL RENT; EQUIP EQUIP FLWMTR HUMIDFR&M ASK O2 CONC 1 E1390 ROMAIN HOYOS DEL [place] 0 HOME HOME 85%/>02 MEDICAL MEDICAL CONC AT EQUIPMENT EQUIPMENT PRSC FLW RATE COMPREHEN 24090 COMBINED COMBINED SIVE 0 PHYSICIAN PHYSICIAN METABOLIC S LAB S LAB PANEL PRTBLE E0431 ROMAIN HOYOS GASEOUS 0 HOME HOME O2 SYS MEDICAL MEDICAL RENT; EQUIP EQUIP FLWMTR HUMIDFR&M ASK O2 CONC 1 E1390 ROMAIN HOYOS DEL PORT 0 HOME HOME 85%/>02 MEDICAL MEDICAL CONC AT EQUIPMENT EQUIPMENT PRSC FLW RATE PRTBLE E0431 ROMAIN HOYOS GASEOUS 9 HOME HOME O2 SYS MEDICAL MEDICAL RENT; EQUIP EQUIP FLWMTR HUMIDFR&M ASK O2 CONC 1 E1390 ROMAIN HOYOS DEL PORT 9 HOME HOME 85%/>02 MEDICAL MEDICAL CONC AT EQUIPMENT EQUIPMENT PRSC FLW RATE IAADI 91703 JUN BARAHONA INFLUENZA 9 [facility] B VIRUS INC INC IAADI 08422 JUN BARAHONA INFFLUENZ 9 [facility] A A VIRUS INC INC URNLS DIP 16575 JUN JUN 9 [facility] STICK/TAB INC INC LET REAGENT AUTO MICROSCOP Y CULTURE 30844 JUN BARAHONA BACTERIAL 9 [facility] INC INC QUANTTATI VE COLONY COUNT URINE O2 CONC 1 E1390 ROMAIN HOYOS DEL [place] 9 HOME HOME 85%/>02 MEDICAL MEDICAL CONC AT EQUIPMENT EQUIPMENT PRSC FLW RATE O2 CONC 1 E1390 ROMAIN HOYOS DEL [place] 9 HOME HOME 85%/>02 MEDICAL MEDICAL CONC AT EQUIPMENT EQUIPMENT PRSC FLW RATE SMR PRIM 60077 JUNDANITZA ROBERTSON SRC 9 [facility] GRAM/GIEM INC INC SA STAIN BCT FUNGI/CANDICE L RADIOLOGI 86032 Jeannette BRAVO EXAM 9 MEDICAL AMAURI CHEST 2 IMAGING VIEWS ASSOCIATE FRONTAL&L S ATERAL CUL BACT 02523 JUN BARAHONA XCPT 9 [facility] URINE INC INC BLOOD/STO OL AEROBIC ISOL O2 CONC 1 E1390 ROMAIN HOYOS DEL PORT 9 HOME HOME 85%/>02 MEDICAL MEDICAL CONC AT EQUIPMENT EQUIPMENT PRSC FLW RATE O2 CONC 1 E1390 ROMAIN HOYOS DEL PORT 9 HOME HOME 85%/>02 MEDICAL MEDICAL CONC AT EQUIPMENT EQUIPMENT PRSC FLW RATE RADEX HIP 29918 JUN BARAHONA 9 [facility] UNILATERA INC INC L COMPLETE MINIMUM 2 VIEWS RADEX 00425 ZUHAIR OMAR, ANKLE 9 MEDICAL AMAURI COMPLETE IMAGING MINIMUM 3 ASSOCIATE VIEWS S RADIOLOGI 13835 ZUHAIR OMAR, C 9 MEDICAL AMAURI EXAMINATI IMAGING ON KNEE 3 ASSOCIATE VIEWS S O2 CONC 1 E1390 ROMAIN HOYOS DEL PORT 9 HOME HOME 85%/>02 MEDICAL MEDICAL CONC AT EQUIPMENT EQUIPMENT PRSC FLW RATE O2 CONC 1 E1390 ROMAIN HOYOS DEL PORT 9 HOME HOME 85%/>02 MEDICAL MEDICAL CONC AT EQUIPMENT EQUIPMENT PRSC FLW RATE O2 CONC 1 E1390 ROMAIN HOYOS DEL [place] 9 HOME HOME 85%/>02 MEDICAL MEDICAL CONC AT EQUIPMENT EQUIPMENT PRSC FLW RATE CULTURE 65726 COMBINED COMBINED BACTERIAL 9 PHYSICIAN PHYSICIAN S LAB S LAB QUANTTATI VE COLONY COUNT URINE O2 CONC 1 E1390 ROMAIN HOYOS DEL PORT 9 HOME HOME 85%/>02 MEDICAL MEDICAL CONC AT EQUIPMENT EQUIPMENT PRSC FLW RATE O2 CONC 1 E1390 ROMAIN VENEGAS PORT 9 HOME HOME 85%/>02 MEDICAL MEDICAL CONC AT EQUIPMENT EQUIPMENT PRSC FLW RATE HEMOGLOBI 93113 COMBINED COMBINED N 9 PHYSICIAN PHYSICIAN GLYCOSYLA S LAB S LAB GARRETT A1C COMPREHEN 28082 COMBINED COMBINED SIVE 9 PHYSICIAN PHYSICIAN METABOLIC S LAB S LAB PANEL BLD GLU A4253 CRISTINO GREGG TEST/REAG 9 HOME MED HOME MED T STRIPS EQUIP. EQUIP. HOME BLD [facility] GLU MON-50 LANCETS A4259 CRISTINO CRISTINO PER BOX 9 HOME MED HOME MED OF 100 EQUIP. [facility]QU[facility]. [facility] LLC O2 CONC 1 E1390 ROMAIN HOYOS DEL [place] 9 HOME HOME 85%/>02 MEDICAL MEDICAL CONC AT EQUIPMENT EQUIPMENT PRSC FLW RATE O2 CONC 1 E1390 ROMAIN HOYOS DEL [place] 9 HOME HOME 85%/>02 MEDICAL MEDICAL CONC AT EQUIPMENT EQUIPMENT PRSC FLW RATE O2 CONC 1 E1390 ROMAIN HOYOS DEL [place] 8 HOME HOME 85%/>02 MEDICAL MEDICAL CONC AT EQUIPMENT EQUIPMENT PRSC FLW RATE LANCETS A4259 CRISTINO CRISTINO PER BOX 8 HOME MED HOME MED OF 100 [facility]QUIP. [facility] LLC BLD GLU A4253 CRISTINO HARRELLRELL TEST/REAG 8 HOME MED HOME MED T STRIPS EQUIP. EQUIP. HOME BLD [facility] GLU MON-50 O2 CONC 1 E1390 ROMAIN HOYOS DEL PORT 8 HOME HOME 85%/>02 MEDICAL MEDICAL CONC AT EQUIPMENT EQUIPMENT PRSC FLW RATE CYSTO 23032 [facility] MEDINA, BLADDER 8 [facility] DANIE D W/URETERA UROLOGY L PSC CATHETERI ZATION ANES 76995 ANESTHESI BINGCANG, TRANSURET 8 A B P HRAL ASSOCIATE W/URETHRO S, PSC CYSTOSCOP Y NOS ECG 05735 RBOLES JUSTICE, ROUTINE 8 [facility] ECG CLINIC W/LEAST PSC 12 LDS I&R ONLY THER 35664 JUN BARAHONA PROPH/DX 8 [facility] NJX INC INC SUBQ/IM ECG 05916 JUN BARAHNOA ROUTINE 8 [facility] ECG INC INC W/LEAST 12 LDS TRCG ONLY W/O I&R ECG 49604 JUN BARNETT ROUTINE 8 [facility] ECG [facility] W/LEAST PROF SERV 12 LDS I&R ONLY RADIOLOGI 81477 Jeannette GAMBLE 8 MEDICAL ALVIN Orozco EXAMINATI IMAGING ON CHEST ASSOCIATE SINGLE S VIEW FRONTAL CREATINE 45432 JUN BARAHONA KINASE MB 8 [facility] FRACTION INC INC ONLY BLOOD 35909 JUN BARAHONA COUNT 8 [facility] COMPLETE INC INC AUTO&[place] [address] JUN JUN TROPONIN 8 [facility] QUANTITAT INC INC ELVIRA AMB A[address] [facility] OXYGEN&O2 8 AMBULANCE AMBULANCE SUPPLIES SERVICE SERVICE LIFE SUSTAININ G SITUATION GROUND A0425 [facility] AM[facility]ULANCE PER SERVICE SERVICE STATUTE MILE AMB A[address] [facility] SERVICE 8 AMBULANCE AMBULANCE ALS SERVICE SERVICE EMERGENCY TRANSPORT LEVEL 1 BASIC 20916 JUN JUN METABOLIC 8 [facility] HOSP PANEL INC INC CALCIUM TOTAL CREATINE 84823 JUNDANITZA BARAHONA KINASE 8 [facility] HOSP TOTAL INC INC CULTURE 49147 COMBINED COMBINED BACTERIAL 8 PHYSICIAN PHYSICIAN S LAB S LAB QUANTTATI VE COLONY COUNT URINE O2 CONC 1 E1390 ROMAIN HOYOS DEL PORT 8 HOME HOME 85%/>02 MEDICAL MEDICAL CONC AT EQUIPMENT EQUIPMENT PRSC FLW RATE SMALL A7004 CYNCARISA CYNFRANCHESCAANA VOLUME 8 HOME HOME NONFILTR MEDICAL MEDICAL PNEUMATIC EQUIPMENT EQUIPMENT NEBULIZER DISPBL ADMN SET A7003 CYNCARISA CYNFRANCHESCAANA SM VOL 8 HOME HOME NONFILTR MEDICAL MEDICAL PNEUMAT EQUIPMENT EQUIPMENT NEBULIZR DISPBL GROUND A0425 [facility] 8 AMBULANCE AMBULANCE PER SERVICE SERVICE STATUTE MILE AMB A[address] [facility] SERVICE 8 AMBULANCE AMBULANCE ALS SERVICE SERVICE EMERGENCY TRANSPORT LEVEL 1 ECG 40785 NATHALIE RAYMOND 8 [facility] W/LEAST PROF SERV 12 LDS I&R ONLY RADIOLOGI 34962 [place] Jeannette NELSON 8 MEDICAL AMAURI EXAMINATI IMAGING ON CHEST ASSOCIATE SINGLE S VIEW FRONTAL O2 CONC 1 E1390 CYNFRANCHESCAANA CYNFRANCHESCAANA DEL PORT 8 HOME HOME 85%/>02 MEDICAL MEDICAL CONC AT EQUIPMENT EQUIPMENT PRSC FLW RATE O2 CONC 1 E1390 [place]TH[place] DEL PORT 8 HOME HOME 85%/>02 MEDICAL MEDICAL CONC AT EQUIPMENT EQUIPMENT PRSC FLW RATE LANCETS A4259 CRISTINO GREGG PER BOX 8 HOME MED HOME MED OF 100 EQUIP. EQUIP. [facility] BLD GLU A4253 CRISTINO GREGG TEST/REAG 8 HOME MED HOME MED T STRIPS EQUIP. EQUIP. HOME [facility] GLU MON-50 BRNCDILAT 94939 JUN BARAHONA RSPSE 8 [facility] SPMTRY INC INC PRE&POST- BRNCDILAT ADMN FUNCTIONA 18357 JUN BARAHONA L 8 [facility] RESIDUAL INC INC CAPACITY OR RESIDUAL VOLUME DETER 42077 JUN BARAHONA MALDISTRI 8 [facility] BJ OF INC INC INSPIRED GAS N WSHOT CURVE DETER 39121 JUN BARAHONA AIRWY 8 [facility] CLOSING INC INC VOL 1 BRTH TSTS PRESSURIZ 77081 JUN BARAHONA ED/NONPRE 8 [facility] SSURIZED INC INC INHALATIO N TREATMENT SMALL A7004 [place] VOLUME 8 HOME HOME NONFILTR MEDICAL MEDICAL PNEUMATIC EQUIPMENT EQUIPMENT NEBULIZER DISPBL ADMN SET A7003 [place] SM VOL 8 HOME HOME NONFILTR MEDICAL MEDICAL PNEUMAT EQUIPMENT EQUIPMENT NEBULIZR DISPBL O2 CONC 1 E1390 [place] DEL PORT 8 HOME HOME 85%/>02 MEDICAL MEDICAL CONC AT EQUIPMENT EQUIPMENT PRSC FLW RATE O2 CONC 1 E1390 [place] DEL PORT 8 HOME HOME 85%/>02 MEDICAL MEDICAL CONC AT EQUIPMENT EQUIPMENT PRSC FLW RATE DRUG 78320 JUN BARAHONA SCREEN 8 [facility] QUANTITAT INC [place] [address] JUN BARAHONA TROPONIN 8 [facility] QUANTITAT INC INC ELVIRA BLOOD 65057 JUN BARAHONA COUNT 8 [facility] COMPLETE INC INC AUTO&AUTO DIFRNTL WBC URNLS DIP 90078 JUN BARAHONA 8 [facility] STICK/TAB INC INC LET REAGENT AUTO MICROSCOP Y CREATINE 69696 JUN BARAHONA KINASE 8 [facility] TOTAL INC INC RADEX 19705 JUN BARAHONA ABDOMEN 1 8 [facility] INC INC ANTEROPOS TERIOR VIEW ECG 43157 JUN BARAHONA ROUTINE 8 [facility] ECG INC INC W/LEAST 12 LDS TRCG ONLY W/O I&R COMPREHEN 44847 JUN BARAHONA SIVE 8 [facility] METABOLIC INC INC PANEL RADIOLOGI 14982 JUN BARAHONA C 8 [facility] EXAMINATI INC INC ON CHEST SINGLE VIEW FRONTAL ECG 47610 JUN BARNETT ROUTINE 8 [facility] SAM F W/LEAST PROF SERV 12 LDS I&R ONLY CULTURE 86981 JUN BARAHONA BACTERIAL 8 [facility] INC INC QUANTTATI VE COLONY COUNT URINE RHYTHM 79538 JUN BARAHONA ECG 1-3 8 [facility] LEADS INC INC TRACING ONLY W/O I&R CREATINE 24435 JUN BARAHONA KINASE MB 8 [facility] FRACTION INC INC ONLY O2 CONC 1 E1390 [place] CYNFRANCHESCAANA DEL PORT 8 HOME HOME 85%/>02 MEDICAL MEDICAL CONC AT EQUIPMENT EQUIPMENT PRSC FLW RATE O2 CONC 1 E1390 [place] DEL PORT 8 HOME HOME 85%/>02 MEDICAL MEDICAL CONC AT EQUIPMENT EQUIPMENT PRSC FLW RATE AMB A0427 [facility] 8 AMBULANCE AMBULANCE ALS SERVICE SERVICE EMERGENCY TRANSPORT LEVEL 1 GROUND A0425 [facility] 8 AMBULANCE AMBULANCE PER SERVICE SERVICE STATUTE MILE ECG 07884 JUN ROY, ROUTINE 8 [facility] W/LEAST PROF SERV 12 LDS I&R ONLY RADIOLOGI 11144 Jeannette BRAVO 8 MEDICAL AMAURI EXAMINATI IMAGING ON CHEST ASSOCIATE SINGLE S VIEW FRONTAL ECG 71832 ROBLES LI ROUTINE 8 [facility] ECG CLINIC W/LEAST PSC 12 LDS I&R ONLY INJECTION 36094 ROBLES LI CARDIAC 8 [facility] CATHJ L CLINIC VENTR/L PSC ATR ANGIOGRAP H L HRT 54234 ROBLES LI CATHETERI 8 [facility] ZATION CLINIC [place] [address] Jeannette GAMBOA-TARIQ 8 [facility] F/SLCTV C CLINIC ANGRP PSC I SI&R 65905 ROBLES LI F/NJX PX 8 [facility] C-CATHJ PSC VENTR&/AT R ANGRPH I SI&R 82437 ROBLES LI F/NJX PX 8 [facility] C-CATHJ PSC PULM&/OR SELECT LANCETS A4259 CRISTINO CRISTINO PER BOX 8 HOME MED HOME MED OF 100 EQUIP. EQUIP. LLC [facility] BLD GLU A4253 CRISTINO CRISTINO TEST/REAG 8 HOME MED HOME MED T STRIPS EQUIP. EQUIP. HOME D [facility] GLU MON-50 SMALL A7004 CYNCARISA HOYOS VOLUME 8 HOME HOME NONFILTR MEDICAL MEDICAL PNEUMATIC EQUIPMENT EQUIPMENT NEBULIZER DISPBL ADMN SET A7003 CYNCARISA HOYOS SM VOL 8 HOME HOME NONFILTR MEDICAL MEDICAL PNEUMAT EQUIPMENT EQUIPMENT NEBULIZR DISPBL BLDR 90292 [facility] MEDINA, IRRIGATIO 8 LTH DANIE D N SMPL UROLOGY LAVAGE PSC &/INSTLJ O2 CONC 1 E1390 CYNCARISA HOYOS DEL PORT 8 HOME HOME 85%/>02 MEDICAL MEDICAL CONC AT EQUIPMENT EQUIPMENT PRSC FLW RATE BLDR 16166 [facility] MEDINA, IRRIGATIO 8 LTH DANIE D N SMPL UROLOGY LAVAGE PSC &/INSTLJ BLDR 79706 [facility] MEDINA, IRRIGATIO 8 LTH DANIE D N SMPL UROLOGY LAVAGE PSC &/INSTLJ O2 CONC 1 E1390 CYNCARISA HOYOS DEL PORT 8 HOME HOME 85%/>02 MEDICAL MEDICAL CONC AT EQUIPMENT EQUIPMENT PRSC FLW RATE URNLS DIP 89752 JUN BARAHONA 8 [facility] STICK/TAB INC INC LET REAGENT AUTO MICROSCOP Y LANCETS A4259 CRISTINO CRISTINO PER BOX 8 HOME MED HOME MED OF 100 EQUIP. EQUIP. LLC [facility] BLD GLU A4253 CRISTINO CRISTINO TEST/REAG 8 HOME MED HOME MED T STRIPS EQUIP. EQUIP. HOME D [facility] GLU MON-50 SMALL A7004 ROMAIN HOYOS VOLUME 8 HOME HOME NONFILTR MEDICAL MEDICAL PNEUMATIC EQUIPMENT EQUIPMENT NEBULIZER DISPBL ADMN SET A7003 ROMAIN HOYOS SM VOL 8 HOME HOME NONFILTR MEDICAL MEDICAL PNEUMAT EQUIPMENT EQUIPMENT NEBULIZR DISPBL O2 CONC 1 E1390 ROMAIN HOYOS DEL PORT 8 HOME HOME 85%/>02 MEDICAL MEDICAL CONC AT EQUIPMENT EQUIPMENT PRSC FLW RATE Encounters Encounter Start End Date Code Location Performer Type Date OFFICE 29743 [facility] 10 P MINUTES OFFICE 28333 [facility] 7 [facility] VISIT 5 HOSPITAL MINUT[facility] P OFFICE 70456 [facility] 7 [facility] 10 P [facility] JUN - 7 7 [facility] - 7 7 [facility] JUN - 7 7 [facility] T OFFICE 91503 [facility] 7 7 [place] [address] HOSPITAL MINUTES [facility]OSPITAL JUN - 7 7 [facility] 7 7 [facility] OUT[facility] T OFFICE 71387 [facility]ISIT MEDICAL 25 G MINUTES EMERGENCY 18230 JUN DEPT 7 7 [facility] VISIT INC HIGH SEVERITY& THREAT [facility] JUN - 7 7 [facility] OUTPATIEN INC T OFFICE 17942 FAMILY MULBERRY OUTPATIEN 6 6 CARE T VISIT ASSOCIATE 15 S MINUTES EMERGENCY 21205 JUN 6 6 [facility] DEPARTMEN INC T VISIT LOW/MODER SEVERITY [facility] JUN - 6 6 [facility] OUTPATI[facility] INC T EMERGENCY 76049 [facility] GRAY 6 [facility]IGH/URGE NT SEVERITY OFFICE 26870 FAMILY MARCO A OUTPATIEN 6 6 CARE MARZENA T VISIT ASSOCIATE 15 S MINUTES HOSPITAL JUN - 6 6 [facility] OUTPATI[facility] INC T OFFICE 46366 PROGRESSI JAMAR OUTPATIEN 6 6 VE MOUNA T VISIT PODIATRY 15 MINUTES OFFICE 85368 FAMILY MARCO A OUTPATIEN 6 6 CARE MARZENA T VISIT ASSOCIATE 15 S MINUTES OFFICE 82153 FAMILY MARCO A CONSULTAT 6 6 CARE MARZENA ION ASSOCIATE NEW/ESTAB S PATIENT 40 MIN OFFICE 55739 PROGRESSI JAMAR OUTPATIEN 6 6 VE MOUNA T VISIT PODIATRY 15 MINUTES HOSPITAL JUN - 6 6 [facility] OUTPATI[facility] INC T OFFICE 50230 FALLIS JAMAR OUTPATIEN 6 6 T NEW 30 MINUTES OFFICE 35272 [facility] PETTERosette OUTPATIEN 6 6 PHYSICIAN JAM T NEW 20 S GROUP MINUTES EMERGENCY 01465 [facility]ARREAL [facility] 6 6 [facility] T VIS[facility] HIGH/URGE NT SEVERITY HOSPITAL JUN - 6 6 [facility] OUTPATIEN [facility] T EMERGENCY 12378 JUN 6 6 [facility] T VISIT LOW/MODER SEVERITY EMERGENCY 39164 AMPARO [facility]ILLARREAL [facility] 6 6 [facility] HIGH/URGE NT SEVERITY OFFICE 58935 DIANNE RAMIREZ OUTPATIEN 6 6 [facility] T VISIT MEDICAL 25 G MINUTES EMERGENCY 97894 AMPARO LUNDBERG DEPT 6 6 PHYSICIAN U PARKER VISIT [facility] HIGH SEVERITY& [facility]AT [facility] JUN - 6 6 [facility] OUTPATIEN INC T HOSPITAL JUN - 5 5 [facility] OUTPATIEN INC T EMERGENCY 59206 AMPARO KRISHNA 5 5 PHYSICIAN LEONARDO CARVALHO S, [facility] T VISIT HIGH/URGE NT SEVERITY EMERGENCY 77089 JUN 5 5 [facility]/MODER SEVERITY HOSPITAL JUN - 5 5 [facility] OUTPATIEN INC T OFFICE 22189 [facility] JAMES OUTPATIEN 5 5 [facility] T VISIT MEDICAL 40 G MINUTES HOSPITAL [place] [address] HOSPITAL INPATIENT OFFICE 97116 FAMILY MARCO A OUTPATIEN 5 5 CARE MARZENA T VISIT ASSOCIATE 25 S MINUTES EMERGENCY 51959 AMPARO Boudreaux 5 5 PHYSICIAN DEPARTMEN S, [facility] T VISIT HIGH/URGE NT SEVERITY HOSPITAL JUN - 5 5 [facility] OUTPATIEN INC T OFFICE 67734 FAMILY MARCO A OUTPATIEN 5 5 CARE MARZENA T VISIT ASSOCIATE [address] [facility] JUN - 5 5 [facility] OUTPATIEN INC T OFFICE 83677 [facility] FALLUJI OUTPATIEN 5 5 [facility] T VISIT MEDICAL 25 G MINUTES HOSPITAL JUN - 5 5 [facility] OUTPATIEN INC T OFFICE 35348 FAMILY MARCO A OUTPATIEN 5 5 CARE MARZENA T VISIT ASSOCIATE 15 S [facility] JUN - 5 5 [facility] OUTPATIEN INC T OFFICE 47421 FAMILY MARCO A OUTPATIEN 5 5 CARE MARZENA T VISIT ASSOCIATE 15 S MINUTES OFFICE 18554 FAMILY MARCO A OUTPATIEN 5 5 CARE MARZENA T VISIT ASSOCIATE 15 S [facility] HOSPITAL JUN - 5 5 [facility] OUTPATIEN INC T EMERGENCY 98061 [facility] DEPT 4 4 ANTONIETA VISIT EMERGENCY HIGH PHYS SEVERITY& THREAT [facility] - 4 4 HOSPITAL INPATIENT EMERGENCY 77538 [facility] 4 4 ANTONIETA DEPARTMEN EMERGENCY T VISIT PHYS HIGH/URGE NT SEVERITY EMERGENCY 97683 [facility] 4 4 ANTONIETA BULL DEPARTMEN EMERGENCY T VISIT PHYS HIGH/URGE NT SEVERITY EMERGENCY 32868 [facility] DEPT 4 4 ANTONIETA IMT VISIT EMERGENCY HIGH PHYS SEVERITY& THREAT FUN EMERGENCY 77768 [facility] 4 4 ANTONIETA BULL DEPARTMEN EMERGENCY T VISIT PHYS HIGH/URGE NT SEVERITY OFFICE 44778 FAMILY OUTPATIEN 4 4 CARE T VISIT ASSOCIATE 25 S MINUTES EMERGENCY 73537 [facility] 4 4 DEPARTMEN T VISIT HIGH/URGE NT SEVERITY EMERGENCY 54951 JAMAR ROLDAN 4 4 III SHEILA III SHEILA DEPARTMEN T VISIT MODERATE SEVERITY Emergency JAYNE Luna MD (ER) 4 17:14 4 18:32 [facility] EMERGENCY 27279 [facility] 4 4 DEPARTMEN T VISIT HIGH/URGE NT SEVERITY Emergency JAYNE Roldan (ER) 4 13:22 4 18:15 [facility] Sam E. EMERGENCY 31304 JAMAR ROLDAN 4 4 III SHEILA III SHEILA DEPARTMEN T VISIT HIGH/URGE NT SEVERITY OFFICE 84185 [facility] OUTPATIEN 3 3 ALI SARABJIT ALI SARABJIT T VISIT 15 MINUTES HOSPITAL JUN - 3 3 [facility] OUTPATIEN INC T OFFICE 49677 [facility] OUTPATI[facility] 3 3 ALI SARABJIT ALI SARABJIT T NEW 45 MINUTES Emergency JAYNE TOUSSAINT (ER) 3 17:06 3 17:54 [facility] EMERGENCY 29312 ALFARIS ALFARIS DEPT 3 3 [facility] VISIT HIGH SEVERITY& THREAT FUNCJ Emergency JAYNE Lizarraga MD (ER) 3 17:27 3 21:15 [facility] EMERGENCY 30244 JUN 3 3 [facility] T VISIT MODERATE SEVERITY HOSPITAL JUN - 3 3 [facility] OUTPATIEN [facility] EMERGENCY 83624 TIN LIZARRAGA 3 3 [facility] T VISIT HIGH/URGE NT SEVERITY OFFICE 58796 MARCO A Faustin OUTPATIEN 3 3 G G T VISIT 15 MINUTES HOSPITAL JUN - 3 3 [facility] OUTPATIEN [facility] JUN - 3 3 [facility] OUTPATIEN [facility] JUN - 3 3 [facility] OUTPATI[facility] JUN - 2 2 [facility] OUTPATIEN [facility] EMERGENCY 51758 JAMAR ROLDAN DEPT 2 2 III SHEILA III SHEILA VISIT HIGH SEVERITY& THREAT FUNCJ EMERGENCY 76444 JUN 2 2 [facility] T VISIT HIGH/URGE NT SEVERITY OFFICE 62714 JOSÉ MANUEL GEORGES CONSULTAT 2 2 L L ION NEW/ESTAB PATIENT 60 MIN [facility]OSPITAL JUN - 2 2 [facility]IEN [facility] 35207 JUN 2 2 [facility] T VISIT HIGH/URGE NT SEVERITY [facility]OSP[facility] JUN - 2 2 [facility] T OFFICE 78389 LORIE MELO OUTPATIEN 2 2 R H R H T VISIT 15 MINUTES EMERGENCY 98927 ALEX SIMENTAL 2 2 EMERGENCY DEPARTMEN SERVICES T VISIT HIGH/URGE NT SEVERITY OFFICE 46616 MARCO A Faustin OUTPATIEN 2 2 T VISIT 25 MINUTES [facility]OSPITAL JUN - 2 2 [facility] T [facility]ERG[facility] 73358 [facility] III SHEILA III SHEILA VISIT HIGH SEVERITY& THREAT FUNCJ EMERGENCY 27876 JUN 2 2 [facility] T VISIT MODERATE SEVERITY EMERGENCY 74006 ALEX KEYES DEPT 2 2 EMERGENCY [facility] VISIT SERVICES HIGH SEVERITY& THREAT FUNCJ EMERGENCY 39786 JUN 2 2 [facility] T VISIT HIGH/URGE NT SEVERITY [facility]OSPITAL JUN - 2 2 [facility] T OFFICE 68005 [facility] 2 2 KEO KEO T VISIT 10 MINUTES EMERGENCY 28786 ALEX ALCOCER 2 2 EMERGENCY DEPARTMEN SERVICES T VISIT HIGH/URGE NT SEVERITY [facility]OSPITAL JUN - 2 2 [facility] INC T EMERGENCY 66723 JUN 2 2 [facility] DEPART[facility] INC T VISIT MODERATE SEVERITY EMERGENCY 63209 ALEX LIZARRAGA 2 2 EMERGENCY [facility] DEPARTMEN SERVICES T VISIT HIGH/URGE NT SEVERITY [facility]OSPITAL JUN - 2 2 [facility] INC T EMERGENCY 08751 JUN 2 2 [facility] INC T VISIT HIGH/URGE NT SEVERITY OFFICE 20499 MARCO A Faustin OUTPATIEN 2 2 G G T VISIT 25 MINUTES EMERGENCY 40621 ALEX LIZARRAGA 1 1 EMERGENCY [facility] T VISIT HIGH/URGE NT SEVERITY EMERGENCY 09591 JUN 1 1 [facility] T VISIT MODERATE SEVERITY [facility]OSPITAL JUN - 1 1 [facility] T OFFICE 05056 Jeannette DENNY OUTPATIEN 1 1 DENISHA Suarez VISIT [facility] 15 MINUTES HOSPITAL JUN - 1 1 [facility] T EMERGENCY 26533 ALEX BRYANT CHUN DEPT 1 1 EMERGENCY VISIT SERVICES HIGH SEVERITY& THREAT [facility] JUN - 1 1 [facility] INC T EMERGENCY 82989 JUN 1 1 [facility] T VISIT HIGH/URGE NT SEVERITY OFFICE 64800 Jeannette DENNY CONSULTAT 1 1 DENISHA WAYNE MD [facility] NEW/ESTAB PATIENT 60 MIN OFFICE 72190 FAMILY LORIE OUTPATIEN 1 1 CARE R H T VISIT ASSOCIATE 15 S MINUTES OFFICE 00520 FAMILY OUTPATIEN 1 1 CARE T VISIT ASSOCIATE 15 S MINUTES OFFICE 30495 FAMILY MARCO A J OUTPATIEN 1 1 CARE T VISIT ASSOCIATE 15 S MINUTES [facility]OSPITAL JUN - 1 1 [facility] INC T OFFICE 55846 FAMILY MARCO A J OUTPATIEN 1 1 CARE T VISIT ASSOCIATE 25 S MINUTES EMERGENCY 55707 ALEX BRYANT CHUN DEPT 0 0 EMERGENCY VISIT SERVICES HIGH SEVERITY& THREAT [facility] JUN - 0 0 [facility] OUT[facility] INC T EMERGENCY 58530 JUN 0 0 [facility] DEPART[facility] INC T VISIT HIGH/URGE NT SEVERITY [facility]OSP[facility] JUN - 0 0 [facility] T EMERGENCY 91915 ALEX TIN 0 0 EMERGENCY [facility] DEPARTMEN SERVICES T VISIT HIGH/URGE NT SEVERITY [facility]OSP[facility] JUN - 0 0 [facility] T EMERGENCY 20287 JUN 0 0 [facility] T VISIT LOW/MODER SEVERITY OFFICE 73549 Ramin JAMESEN 0 0 CARE G T VISIT ASSOCIATE 15 S MINUTES OFFICE 29037 LIZETH UPPATIEN 0 0 CARE R OLGA T VISIT ASSOCIATE 25 S MINUTES [facility]OSPITAL JUN - 9 9 [facility] T EMERGENCY 47873 JUN 9 9 [facility] DEPARTMEN INC T VISIT MODERATE SEVERITY EMERGENCY 94776 ALEX ROLDAN 9 9 EMERGENCY III, DEPARTMEN SERVICES SAM T VISIT HIGH/URGE ASSOCIATE NT S SEVERITY OFFICE 82839 Ramin JAMES 9 9 CARE G T VISIT ASSOCIATE 15 S MINUTES HOSPITAL JUN - 9 9 [facility] T OFFICE [id number] JENNI UPEN 9 9 [facility]ARE R OLGA T VISIT ASSOCIATE 15 S MINUTES EMERGENCY 62872 JUN 9 9 [facility] T VISIT LOW/MODER SEVERITY [facility]OSPITAL JUN - 9 9 [facility] T EMERGENCY 94713 ALEX EMMANUEL, 9 9 EMERGENCY VIN DEPARTMEN SERVICES O T VISIT HIGH/URGE ASSOCIATE NT S SEVERITY OFFICE 98491 MARIO COOK 8 8 [facility] D T VISIT UROLOGY 15 PSC MINUTES OFFICE 53917 Ramin JAMES 8 8 CARE G T VISIT ASSOCIATE 15 S MINUTES OFFICE 92613 Ramin JAMES 8 8 CARE G T VISIT ASSOCIATE 15 S MINUTES OFFICE 09161 Ramin JAMES 8 8 CARE G T VISIT ASSOCIATE 15 S MINUTES OFFICE 03144 TIA ALFREDOPONCE CONSULTAT 8 8 MEDICAL , DARLING Tinajero ION SERV NEW/ESTAB FOUNDATIO PATIENT 80 MIN HOSPITAL JUN - 8 8 [facility] T EMERGENCY 57634 JADA TOLLIVER, DEPT 8 8 [facility] VISIT CORPORATI HIGH ON SEVERITY& THREAT [facility] JUN - 8 8 [facility] OUTPATIEN INC T EMERGENCY 93349 JUN 8 8 [facility] DEPARTMEN INC T VISIT HIGH/URGE NT SEVERITY OFFICE 58761 MARIO COOK 8 8 [facility] D T VISIT UROLOGY 15 PSC MINUTES OFFICE 71985 MARIO GAMBOA 8 8 [facility] 25 PSC MINUTES OFFICE 66140 Ramin JAMES 8 8 CARE G T VISIT ASSOCIATE 15 S MINUTES OFFICE 53929 MARIO UP 8 8 CARE R OLGA T VISIT ASSOCIATE 15 S MINUTES OFFICE 05527 MARIO COOK 8 8 [facility] D T VISIT UROLOGY 25 PSC MINUTES OFFICE 19943 Ramin JAMES 8 8 CARE G T VISIT ASSOCIATE 15 S MINUTES HOSPITAL JUN - 8 8 [facility] INC T OFFICE 13522 Ramin JAMES 8 8 CARE G T VISIT ASSOCIATE 25 S MINUTES OFFICE 26238 Ramin JAMES 8 8 CARE G T VISIT ASSOCIATE 15 S MINUTES HOSPITAL JUN - 8 8 [facility] OUT[facility] INC T OFFICE 82537 Ramin JAMES OUTSHERRI 8 8 CARE G T VISIT ASSOCIATE 25 S MINUTES EMERGENCY 52130 JUN POPE DEPT 8 8 [facility] T VISIT HOSPITAL HIGH PROF SERV SEVERITY& THREAT FUNCJ EMERGENCY 26541 JUN 8 8 [facility] DEPARTMEN INC T VISIT HIGH/URGE NT SEVERITY HOSPITAL JUN - 8 8 [facility] OUTPAT[facility] T OFFICE 18124 [facility] OUTPATIEN 8 8 [facility] T VISIT CLINIC 15 PSC MINUTES OFFICE 44434 [facility] OUTPATIEN 8 8 [facility] D T VISIT UROLOGY 15 PSC MINUTES OFFICE 37834 [facility] OUTPATIEN 8 8 [facility] D[facility] D T VISIT UROLOGY 15 PSC MINUTES OFFICE 91030 [facility], OUTPATIEN 8 8 [facility] D[facility] D T VISIT UROLOGY 15 PSC MINUTES EMERGENCY 88044 JUN 8 8 [facility] DEPART[facility] INC T VISIT LOW/MODER SEVERITY HOSPITAL JUN - 8 8 [facility] OUT[facility] T OFFICE 93959 [facility] OUTPATIEN 8 8 [facility] DANIE D T VISIT UROLOGY 15 PSC MINUTES OFFICE 37508 [facility] OUTPATIEN 8 8 [facility] DANIE D T VISIT UROLOGY 15 PSC MINUTES OFFICE 84416 Ramin JAMES OUTPATIJOHANNY 8 8 CARE G T VISIT ASSOCIATE 15 S MINUTES
--- OUTSIDE RECORDS SUMMARY | 2016-12-15 05:48 | External Medical Summary Rpt ---
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 -1 .0 IN 84 OP ti TX 30 9- 7- 00 IC 35 ER [...] AR HN MA G CY LL C TX 37 02 02 5 60 30 CL [...] 2- 2- 00 IC 13 ER ve TX 07 20 20 IL 20 11 11 [...] -0 -0 .0 IN 84 OP ti TX 30 9- 2- 00 IC 35 ER [...] -0 -0 .0 IN 84 OP ti TX 30 9- 5- 00 IC 35 ER [...] 2- 5- 00 IC 60 ER ve TX 07 20 20 IL 20 10 11 [...] 2- 6- 00 IC 60 ER ve TX 07 20 20 IL 20 10 10 [...] -0 -0 .0 IN 26 OP ti TX 30 3- 6- 00 IC 58 ER [...] -0 -0 .0 IN 26 OP ti TX 30 3- 5- 00 IC 58 ER [...] 2- 5- 00 IC 60 ER ve TX 51 20 20 IL 20 10 10 [...] 2- 4- 00 IC 60 ER ve TX 07 20 20 IL 20 10 10 [...] -0 -0 .0 IN 26 OP ti TX 30 3- 4- 00 IC 58 ER [...] -0 -0 .0 IN 26 OP ti TX 30 3- 3- 00 IC 58 ER [...] 2- 2- 00 IC 60 ER ve TX 07 20 20 IL 20 10 10 [...] -3 -0 .0 IN 54 OP ti TX 30 0- 2- 00 IC 96 ER [...] 2- 2- 00 IC 60 ER ve TX 07 20 20 IL 20 10 10 [...] 1- 1- 00 IC 35 ER ve TX 75 20 20 IL 76 10 10 [...] -3 -0 .0 IN 54 OP ti TX 30 0- 1- 00 IC 96 ER [...] 1- 1- 00 IC 35 ER ve TX 75 20 20 IL 76 10 10 [...] -3 -0 .0 IN 54 OP ti TX 30 0- 1- 00 IC 96 ER [...] -3 -3 .0 IN 54 OP ti TX 30 0- 0- 00 IC 96 ER [...] 1- 9- 00 IC 35 ER ve TX 07 20 20 IL 20 10 10 [...] Y LL CA C PS UL E TX 68 03 03 0 20 5 CL [...] -0 -1 .0 IN 22 OP ti TX 30 7- 2- 00 IC 14 ER [...] 1- 2- 00 IC 35 ER ve TX 07 20 20 IL 20 10 10 [...] -0 -2 .0 IN 22 OP ti TX 30 7- 6- 00 IC 14 ER [...] 1- 6- 00 IC 35 ER ve TX 07 20 20 IL 20 10 10 [...] 4- 1- 00 IC 51 ER ve TX 23 20 20 AM 30 10 10 [...] -0 -2 .0 IN 22 OP ti TX 30 7- 8- 00 IC 14 ER [...] 20 20 M 10 09 10 PH DUARET 7. 1 AR HN 5 MA G MG CY TA BL ET LI 00 01 01 00 30 30 CL 20 CO Ac SI 37 -1 -2 .0 IN 85 OP ti NO 82 1- 8- 00 IC 35 ER ve TX 07 20 20 IL 20 10 10 [...] 9- 7- 00 IC 58 ER ve TX 07 20 20 IL 20 09 09 [...] -0 -1 .0 IN 22 OP ti TX 30 7- 7- 00 IC 14 ER ve OL 73 20 20 OL 31 09 09 PH DUARTE 0 AR HN TA MA G RT CY RA TE 50 MG TA B TX 68 12 12 00 10 3 CL [...] -0 -1 .0 IN 22 OP ti TX 30 7- 9- 00 IC 14 ER ve OL 73 20 20 OL 31 09 09 PH DUARTE 0 AR HN TA MA G RT CY RA TE 50 MG TA B LI 00 06 11 04 30 30 CL 19 CO Ac SI 37 -0 -1 .0 IN 52 OP ti NO 82 9- 9- 00 IC 58 ER ve TX 07 20 20 IL 20 09 09 [...] 9- 2- 00 IC 58 ER ve TX 51 20 20 IL 20 09 09 [...] -0 -2 .0 IN 20 OP ti TX 80 5- 2- 00 IC 39 ER [...] 9- 0- 00 IC 58 ER ve TX 51 20 20 IL 20 09 09 [...] -0 -1 .0 IN 99 OP ti TX 80 1- 0- 00 IC 48 ER [...] 9- 0- 00 IC 58 ER ve TX 51 20 20 IL 20 09 09 PH DUARTE 1 AR HN 2. MA G 5 CY MG TA BL ET ME 00 01 07 05 30 30 CL 18 CO Ac TO 37 -1 -3 .0 IN 59 OP ti TX 80 7- 0- 00 IC 66 ER [...] 00 10 5 CL 19 SO Ac TX 74 -1 -3 .0 IN 73 KA [...] BA ZA 70 09 09 PH BA TX 6 AR TU IN MA ND E CY E 10 O MG TA BL ET LI 68 06 06 00 30 30 CL 19 CO Ac SI 18 -0 -1 .0 IN 52 OP ti NO 00 9- 8- 00 IC 58 ER ve TX 51 20 20 IL 20 09 09 [...] -1 -1 .0 IN 59 OP ti TX 80 7- 8- 00 IC 66 ER [...] -1 -2 .0 IN 59 OP ti TX 80 7- 1- 00 IC 66 ER [...] 3- 1- 00 IC 10 ER ve TX 51 20 20 IL 20 08 09 [...] -1 -2 .0 IN 59 OP ti TX 80 7- 6- 00 IC 66 ER [...] 3- 6- 00 IC 10 ER ve TX 51 20 20 IL 20 08 09 [...] -1 -2 .0 IN 59 OP ti TX 80 7- 6- 00 IC 66 ER ve OL 03 20 20 OL 20 09 09 PH DUARTE 1 AR HN TA MA G RT CY RA TE 50 MG TA B LI 68 12 02 02 30 30 CL 18 CO Ac SI 18 -2 -2 .0 IN 44 OP ti NO 00 3- 6- 00 IC 10 ER ve TX 51 20 20 IL 20 08 09 [...] 3- 0- 00 IC 10 ER ve TX 51 20 20 IL 20 08 09 [...] -1 -3 .0 IN 59 OP ti TX 80 7- 0- 00 IC 66 ER [...] 3- 1- 00 IC 10 ER ve TX 51 20 20 IL 20 08 09 [...] -2 -0 .0 IN 47 OP ti TX 80 1- 1- 00 IC 62 ER [...] -2 -0 .0 IN 47 OP ti TX 80 1- 4- 00 IC 62 ER ve OL 03 20 20 OL 20 08 08 PH DUARTE 1 AR HN TA MA G RT CY RA TE 50 MG TA B LI 68 06 12 05 30 30 CL 17 CO Ac SI 18 -2 -0 .0 IN 29 OP ti NO 00 3- 4- 00 IC 67 ER ve TX 51 20 20 IL 20 08 08 [...] 3- 0- 00 IC 04 ER ve IA 21 20 20 DE 61 08 08 [...] 3- 3- 00 IC 67 Av ve TX 51 20 20 ai IL 20 08 08 PH la 1 AR bl 2. MA e 5 CY MG TA BL ET ME 00 07 10 03 30 30 CL 17 No Ac TO 37 -2 -2 .0 IN 47 t ti TX 80 1- 3- 00 IC 62 Av [...] 3- 6- 00 IC 67 Av ve TX 51 20 20 ai IL 20 08 08 PH la 1 AR bl 2. MA e 5 CY MG TA BL ET FU 00 09 09 00 60 60 CL 17 No Ac RO 37 -1 -2 .0 IN 80 t ti SE 80 3- 6- 00 IC 04 Av ve IA 21 20 20 ai DE 61 08 08 PH la 0 AR bl 40 MA e CY MG TA BL ET ME 00 07 09 02 30 30 CL 17 No Ac TO 37 -2 -2 .0 IN 47 t ti TX 80 1- 6- 00 IC 62 Av [...] 3- 8- 00 IC 67 Av ve TX 51 20 20 ai IL 20 08 08 PH la 1 AR bl 2. MA e 5 CY MG TA BL ET ME 00 07 08 01 30 30 CL 17 No Ac TO 37 -2 -2 .0 IN 47 t ti TX 80 1- 8- 00 IC 62 Av [...] -2 -0 .0 IN 47 t ti TX 80 1- 1- 00 IC 62 Av [...] 3- 1- 00 IC 67 Av ve TX 51 20 20 ai IL 20 08 [...] -1 -0 .0 IN 27 t ti TX 80 8- 3- 00 IC 55 Av [...] 3- 3- 00 IC 67 Av ve TX 51 20 20 ai IL 20 08 [...] -0 -2 .0 IN 82 t ti TX 80 4- 2- 00 IC 48 Av [...] -0 -1 .0 IN 82 t ti TX 80 4- 0- 00 IC 48 Av [...] -2 -0 .0 IN 59 t ti TX 80 5- 7- 00 IC 65 Av [...] -2 -2 .0 IN 59 t ti TX 80 5- 6- 00 IC 65 Av [...] -1 -2 .0 IN 14 t ti TX 80 1- 4- 00 IC 36 Av [...] Comment O2 CONC 1 E1390 [facility] 7 HOME HOME 85%/>02 MEDICAL MEDICAL CONC AT EQUIPME EQUIPME PRSC FLW RATE FLOW 18834 [place] [facility] CYTOMETRY 7 MEDICAL SERV INTERPRET FOUNDATIO ATION N 16/> MARKERS BLOOD 47099 J[facility] COUNT 7 [facility] COMPLETE INC INC AUTO&AUTO DIFRNTL WBC COMPREHEN 17374 [facility] SIVE 7 [facility] METABOLIC INC INC PANEL WBC 57576 JUN [facility] ALKALINE 7 [facility] PHOSPHATA INC INC SE COUNT IMMUNOASS 71666 JUN BARAHONA AY NFCT 7 [facility] AGT ANTB INC INC QUAL/SEMI ADELFO 1 STEP JAK2 GENE 17363 JUN [facility] ANALYSIS 7 [facility] INC INC P.[id number] HE VARIANT NON-INVAS 45307 [place] FREIT[facility] ELVIRA 7 MEDICAL PHYSIOLOG IMAGING IC STUDY ASS EXTREMITY 3 [place] [address] J[facility] FOLIC 7 [facility] ACID INC INC SERUM BLOOD 24512 JUN BARAHONA COUNT 7 [facility] COMPLETE INC INC AUTO&AUTO DIFRNTL WBC CYANOCOBA 32457 JUN BAR[facility]ONA MIHAELA 7 [facility] VITAMIN INC INC B-12 O2 CONC 1 E1390 [facility] 7 HOME HOME 85%/>02 MEDICAL MEDICAL CONC AT EQUIPME EQUIPME PRSC FLW RATE SEDIMENTA 92057 JUN BARAHONA TION RATE 7 MEM [facility] RBC INC INC NON-AUTOM ATED C-REACTIV 77725 JUN BARAHONA E PROTEIN 7 [facility] INC INC RADEX 79820 [facility] ANKLE 7 MEDICAL COMPLETE IMAGING MINIMUM 3 ASS VIEWS RADEX 22229 [facility] LI FOOT 7 MEDICAL COMPLETE IMAGING MINIMUM 3 [place] [address] COMBINED COMBINED THYROID 7 PHYSICIAN PHYSICIAN STIMULATI S LA S LA NG HORMONE TSH BASIC 98694 COMBINED COMBINED METABOLIC 7 PHYSICIAN PHYSICIAN PANEL S LA S LA CALCIUM TOTAL O2 CONC 1 E1390 [facility] 7 HOME HOME 85%/>02 MEDICAL MEDICAL CONC AT EQUIPME EQUIPME PRS FLW RATE O2 CONC 1 E1390 [facility] HOME HOME 85%/>02 MEDICAL MEDICAL CONC AT EQUIPME EQUIPME PRSC FLW RATE ANES 39037 ANESTHESI KEYS INTEG SYS 7 A ELEC ASSOCIATE [place] [address] [facility] MAGNESIUM [address] [place] [address] [place] [address] [facility] THYROID [address] [place] [address] STIMULATI NG HORMONE TSH INJECTION J2704 [facility] PROPOFOL [address] [place] [address] 10 MG UNCLASSIF J3490 [facility] IED DRUGS [address] [place] [address] ELECTIVE MEDICAL ARRHYTHMI G A EXTERNAL ECG 05548 [facility] ROUTINE [address] [place] [address] ECG W/LEAST 12 LDS TRCG ONLY W/O I&R COMPREHEN 55844 [facility] 7 [facility] METABOLIC PANEL ECG 50212 DIANNE JAMES ROUTINE 7 [facility] ECG MEDICAL W/LEAST G 12 LDS I&R ONLY O2 CONC 1 E1390 CRISTINO BRITT 7 HOME HOME 85%/>02 MEDICAL MEDICAL CONC AT EQUIPME EQUIPME PRSC FLW RATE ECG 43720 [facility]AN[facility] JAMES ROUTINE 7 [facility] ECG MEDICAL W/LEAST G 12 LDS W/I&R COMPREHEN 33260 [facility]UN [facility] SIVE 7 [facility] METABOLIC INC INC PANEL ECG 58476 JUN BARAHONA ROUTINE 7 [facility] ECG INC INC W/LEAST 12 LDS TRCG ONLY W/O I&R BLOOD 18740 JUN [facility]AHONA COUNT 7 [facility] COMPLETE INC INC AUTO&AUTO DIFRNTL WBC ECG 72060 JUN RUGGIERO ROUTINE 7 [facility] W/LEAST P 12 LDS I&R ONLY RADIOLOGI 74075 [place] OMAR C 7 MEDICAL EXAMINATI IMAGING ON CHEST ASS SING[place] FRONTAL UNCLASSIF J3490 JUN BARAHONA IED DRUGS 7 [facility] INC INC CREATINE 15318 JUN BARAHONA KINASE MB 7 [facility] [place] [address] JUN BARAH[facility] THYROID 7 [facility] STIMULATI [place] [address] JUN BAR[facility] AMYLASE 7 [facility] INC INC FIBRIN 15643 JUN [facility] DGRADJ 7 [facility] PRODUCTS INC INC D-DIMER QUAL/[place] [address] JUN BARAHONA LIPASE 7 [facility] INC INC CREATINE 37582 JUN BARAHONA KINASE 7 [facility] TOTAL INC INC AMB A0427 [facility] SERV[facility] 7 AMBULANCE AMBULANCE ALS SERVICE SERVICE EMERGENCY TRANSPORT LEVEL 1 [place] [address] JUN BARAHONA THYROXINE 7 [facility] TOTAL INC INC THYROID 38844 JUN JUN HORM 7 [facility] UPTK/THYR INC INC OID HORMONE BINDING RATIO NATRIURET 94878 JUN BARAHONA IC 7 [facility] [place] [address] JUN BARAHONA TROPONIN 7 [facility] QUANTITAT INC INC ELVIRA GROUND A0425 [facility] 7 AMBULANCE AMBULANCE PER SERVICE SERVICE STATUTE MILE ADLT SZD T4528 ACTIVSTYL ACTIVSTYL DISPBL 7 E E INCONT PROD UNDWEAR XTRA LG EA INCONTINE T4541 ACTIVSTYL ACTIVSTYL NCE 7 E E PRODUCT DISPOSABL E UNDPAD LARGE EA O2 CONC 1 E1390 [facility]STINO [facility] [place] 7 HOME HOME 85%/>02 MEDICAL MEDICAL CONC AT EQUIPME EQUIPME [facility] FLW RATE CYANOCOBA 70048 COMBINED COMBINED MIHAELA 7 PHYSICIAN PHYSICIAN VITAMIN S LA S LA B-12 IRON 51151 COMBINED COMBINED BINDING 7 PHYSICIAN PHYSICIAN CAPACITY S LA S LA COMPREHEN 71960 COMBINED COMBINED SIVE 7 PHYSICIAN PHYSICIAN [place] [address] COMBINED COMBINED IRON 7 PHYSICIAN PHYSICIAN S LA S LA O2 CONC 1 E1390 [facility]STINO [facility] [place] 7 HOME HOME 85%/>02 MEDICAL MEDICAL CONC AT EQUIPME EQUIPME [facility] FLW RATE AMB A0427 [facility] 7 AMBULANCE AMBULANCE ALS SERVICE SERVICE EMERGENCY TRANSPORT LEVEL [address] [facility] 7 AMBULANCE AM[place]UL[place] [address] [place] FREIT[facility] ABDOMEN & 7 MEDICAL PELVIS IMAGING W/O ASS CONTRAST MATERIAL BLOOD 15499 JUN BARAHONA COUNT 6 [facility] COMPLETE INC INC AUTO&AUTO DIFRNTL WBC COMPREHEN 68033 JUN [facility]AHONA SIVE 6 [facility] [place] [address] JUN BARAHONA ABDOMEN & 6 [facility] PELVIS INC INC W/O CONTRAST MATERIAL IADNA-DNA 77085 JUN BARAHONA /RNA GI 6 [facility] PTHGN INC INC MULTIPLEX PROBE TQ 12-25 [place] [address] JUN BARAHONA LIPASE 6 [facility] INC INC O2 CONC 1 E1390 [facility] [place] 6 HOME HOME 85%/>02 MEDICAL MEDICAL CONC [facility] FLW RATE ADLT SZD T4528 HOME [facility]TERM CARE DISPBL 6 INCONT DELIVERED DELIVERED PROD INC INC UNDWEAR XTRA LG EA O2 CONC 1 E1390 [facility] 6 HOME HOME 85%/>02 MEDICAL MEDICAL CONC AT [facility] FLW RATE ADLT SZD T4528 HOME LONGTERM CARE DISPBL 6 INCONT DELIVERED DELIVERED PROD INC INC UNDWEAR XTRA LG EA O2 CONC 1 E1390 [facility]INO [facility]RE[facility] [place] 6 HOME HOME 85%/>02 MEDICAL MEDICAL CONC AT EQUIPME [facility] FLW RATE ADLT SZD T4528 HOME CARE RICE JAM DISPBL 6 INCONT DELIVERED PROD INC UNDWEAR XTRA LG EA O2 CONC 1 E1390 CRISTINO GODINEZ DEL [facility] 6 HOME PROSPER 85%/>02 MEDICAL CONC AT [facility] FLW RATE COMPREHEN 19215 COMBINED MC[place] SIVE 6 PHYSICIAN CASTRO METABOLIC S LA PANEL COLLECTIO 90071 FAMILY MARCO A N VENOUS 6 CARE MARZENA BLOOD ASSOCIATE VENIPUNCT S URE ADLT SZD T4528 [facility] DISPBL 6 INCONT DELIVERED DELIVERED PROD INC INC UNDWEAR XTRA LG EA O2 CONC 1 E1390 [facility] 6 HOME HOME 85%/>02 MEDICAL MEDICAL CONC AT [facility] FLW RATE MYOCARDIA 19610 ZUHAIR Boudreaux SPECT 6 MEDICAL CHERELLE MULTIPLE IMAGING STUDIES ASS TECHNETIU A9500 JUN Fisher TC-99M 6 [facility] HOSP SESTAMIBI INC INC DX PER STUDY DOSE CV STRS 27794 JUN RODGERS JR TST 6 [facility] RX CONT P ECG W/O I&R CV STRS 55155 JUN BARAHONA TST [address] [facility] HOSP XERS&/OR INC INC RX CONT ECG TRCG ONLY CV STRS 13239 JUN RODGERS JR TST 6 [facility] XERS&/OR HOSPITAL RX CONT P ECG I&R ONLY WALKER E0143 CRISTINO HARRELLRELL [facility] 6 HOME HOME WHEELED MEDICAL MEDICAL ADJUSTABL EQUIPME EQUIPME E/FIXED HEIGHT AFO L1970 PROGRESSI JAMAR PLASTIC 6 VE MOUNA WITH PODIATRY ANKLE JOINT CUSTOM FABRICATE D ADD LW L2275 PROGRESSI JAMAR EXTRM 6 VE MOUNA VARUS/VUL PODIATRY MAURISIO MALISSA PLSTC MOD PADD/LN ADLT SZD T4528 [facility] DISPBL 6 INCONT DELIVERED DELIVERED PROD INC INC UNDWEAR XTRA LG EA ECG 87791 [facility] ECG MEDICAL W/LEAST G 12 LDS W/I&R O2 CONC 1 E1390 C[facility]STINO [facility] [place] 6 HOME HOME 85%/>02 MEDICAL MEDICAL CONC AT EQUIPME EQUIPME [facility] FLW RATE ADLT SZD T4528 HOME LONGTERM CARE DISPBL 6 INCONT DELIVERED DELIVERED PROD INC INC UNDWEAR XTRA LG EA O2 CONC 1 E1390 CRISTINO [facility]GG [place] 6 HOME HOME 85%/>02 MEDICAL MEDICAL CONC AT EQUIPME EQUIPME [facility] [place]W [place]ATE [place] LOWER 71460 [place] OMAR EXTREMITY 6 MEDICAL CHERELLE W/O IMAGING CONTRAST ASS MATERIAL ADLT SZD T4528 [facility] DISPBL 6 INCONT DELIVERED DELIVERED PROD INC INC UNDWEAR XTRA LG EA BLOOD 27234 JUN BARAHONA COUNT 6 [facility] COMPLETE INC INC AUTO&AUTO DIFRNTL WBC HEPATITIS 40431 JUN BARAHONA C 6 [facility] ANTIBODY INC INC COLLECTIO 16606 JUN BARAHONA N VENOUS 6 [facility] BLOOD INC INC VENIPUNCT URE HEPATITIS 38850 JUN BARAHONA A 6 [facility] ANTIBODY INC INC HAAB INJECTION J3301 FALLIS JAMAR 6 TRIAMCINO LONE ACET[place] NOS 10 [place] [address] JUN BARAHONA HEPATITIS 6 [facility] B INC INC SURFACE ANTIGEN HEPATITIS 32851 JUN Lam CORE 6 [facility] ANTIBODY INC INC HBCAB TOTAL HEPATITIS 16006 JUN Lam SURF 6 [facility] ANTIBODY INC INC HBSAB BASIC 01320 JUN BARAHONA METABOLIC 6 [facility] PANEL INC INC CALCIUM TOTAL ARTHROCEN 52742 FALLIS JAMAR TESIS 6 ASPIR&/IN J INTERM JT/BURS W/O US HEMOGLOBI 27933 JUN BARAHONA N 6 [facility]OS[facility] GLYCOSYLA INC INC GARRETT A1C RADIOLOGI 55151 [facility] FREITAS ALL C 6 MEDICAL EXAMINATI IMAGING ON ANKLE ASS 2 VIEWS INJECTION J3301 FALLIS JAMAR 6 TRIAMCINO LONE ACETONIDE NOS 10 MG ARTHROCEN FALLIS JAMAR TESIS 6 ASPIR&/IN J INTERM JT/BURS W/O US ADLT SZD T4528 [facility]ARE DISPBL 6 INCONT DELIVERED DELIVERED [employer] INC UNDWEAR XTRA LG EA RADIOLOGI 02883 [facility] 6 MEDICAL EXAMINATI IMAGING ON [place] [address] [place] [address] [facility] CHATMANOMAR HEAD/BRAI 6 MEDICAL CHERELLE N W/[place] [address] [facility] ALL CERVICAL 6 MEDICAL SPINE W/O IMAGING CONTRAST ASS MATERIAL AMB A0427 [facility] 6 AMBULANCE AMBULANCE ALS SERVICE SERVICE EMERGENCY TRANSPORT LEVEL 1 GROUND A0425 [facility] AMBULANCE [place] [address] FAMILY MARCO A 6 CARE MARZENA METATARSA ASSOCIATE L S FRACTURE W/O MANIPULAT ION WALKING L4360 [employer]VANCED [employer] BOOT 6 TECHNOLOG TECHNOLOG PNEUMATC IES INC IES INC &/ VACUUM PREFAB CUSTM FIT AMB A0427 [facility] 6 AMBULANCE AMBULANCE ALS SERVICE SERVICE EMERGENCY TRANSPORT LEVEL 1 GROUND A0425 [facility] AM[facility]ULANCE PER SERVICE SERVICE STATUTE MILE ECG 07621 [facility] 6 [facility] ECG MEDICAL W/LEAST G 12 LDS W/I&R RADIOLOGI 65725 [facility] FREITAS ALL C 6 MEDICAL EXAMINATI IMAGING ON CHEST ASS [place] FRONTAL COMPREHEN 47972 COMBINED COMBINED SIVE 6 PHYSICIAN PHYSICIAN METABOLIC S LA S LA PANEL CYANOCOBA 50630 COMBINED COMBINED MIHAELA 6 PHYSICIAN PHYSICIAN VITAMIN S LA S LA B-12 ECG 23428 JUN RUGGIERO ROUTINE 6 [facility] W/LEAST P 12 LDS I&R ONLY ECG 94318 JUN BARAHONA ROUTINE 6 [facility] ECG INC INC W/LEAST 12 LDS TRCG ONLY W/O I&R RADEX HIP 79857 JUN BARAHONA 5 [facility] UNILATERA INC INC L COMPLETE MINIMUM 2 VIEWS RADEX 58895 JUN BARAHONA SPINE 5 [facility] LUMBOSACR INC INC AL MINIMUM 4 VIEWS RADEX 19107 JUN BARAHONA ANKLE 5 [facility] COMPLETE INC INC MINIMUM 3 VIEWS GROUND A0425 [facility] MILEAGE 5 AMBULANCE AMBULANCE PER SERVICE SERVICE STATUTE MIL AMBULANCE A0429 [facility] 5 AMBULANCE AMBULANCE BLS SERVICE [place] [address] JUN BARAHONA MAGNESIUM 5 [facility] INC INC BASIC 92829 JUN BARAHONA METABOLIC 5 [facility] PANEL INC INC CALCIUM TOTAL COLLECTIO 25821 JUN BARAHONA N VENOUS 5 [facility] BLOOD INC INC VENIPUNCT URE ECG 46387 JUN BARAHONA ROUTINE 5 [facility] ECG INC INC W/LEAST 12 LDS TRCG ONLY W/O I&R ECG 27324 JUN RUGGIERO ROUTINE 5 [facility] W/LEAST P 12 LDS I&R ONLY ECG 02021 [facility] 5 [facility] ECG MEDICAL W/LEAST G 12 LDS W/I&R ECG 18994 [facility] 5 [facility] ECG MEDICAL W/LEAST G 12 LDS I&R ONLY HOSPITAL 04443 [facility] DISCHARGE 5 NE [facility] DAY MEDICAL MANAGEMEN G T 30 MIN/< SBSQ 69871 [facility] 5 [facility] CARE/DAY MEDICAL 25 G MINUTES ECG 14238 [facility] ROUTINE 5 [facility] ECG MEDICAL W/LEAST G 12 LDS I&R ONLY ECG 54895 [facility]OUT[facility] ECG MEDICAL MEDICAL W/LEAST G G 12 LDS W/I&R RADEX 18910 [facility] SPINE 5 MEDICAL THORACIC IMAGING 2 VIEWS ASS RADIOLOGI 28091 [place] FORTINO ALL C 5 MEDICAL EXAMINATI IMAGING ON PELVIS ASS 1/2 VIEWS RADEX 84632 [place] F[facility] ALL SHOULDER 5 MEDICAL COMPLETE IMAGING MINIMUM 2 ASS VIEWS RADEX 79339 [place] [facility] ALL SPINE 5 MEDICAL LUMBOSACR IMAGING AL ASS MINIMUM [address] LOWER 34177 JUN BARAHONA EXTREMITY [address] [facility] W/O INC INC CONTRAST MATERIAL INJECTION [id number] JUN BARAHONA [address] [facility] REGADENOS INC INC ON 0.1 MG CV STRS 72137 JUN BARAHONA TST [address] [facility] XERS&/OR INC INC RX CONT ECG TRCG ONLY CV STRS 97733 JUN RUGGIERO TST 5 [facility] RX CONT P ECG I&R ONLY TECHNETIU A9500 JUN Fisher TC-99M 5 [facility] SESTAMIBI INC INC DX PER STUDY DOSE MYOCARDIA 42371 [place] OMAR L SPECT 5 MEDICAL CHERELLE MULTIPLE IMAGING STUDIES ASS XTRNL ECG 83367 JUN RUGGIERO 5 [facility] S RHYTHM P W/I&R UP TO 48 HRS EXTERNAL 43212 JUN BARAHONA ECG [address] [facility] SCANNING INC INC ANALYSIS REPORT XTRNL ECG 42894 JUN BARAHONA & [address] [facility] RECORDING INC INC COMPREHEN 13863 COMBINED COMBINED SIVE 5 PHYSICIAN PHYSICIAN METABOLIC S LA S LA PANEL ECG 22658 JUN BARAHONA ROUTINE 5 [facility] ECG INC INC W/LEAST 12 LDS TRCG ONLY W/O I&R ECG 01753 JUN RODGERS JR ROUTINE 5 [facility] W/LEAST P 12 LDS I&R ONLY COLLECTIO 33318 [facility] [place] N VENOUS 5 [facility]ARE [facility] BLOOD ASSOCIATE VENIPUNCT S URE HEMOGLOBI 55665 [facility] A N 5 CARE [facility] GLYCOSYLA ASSOCIATE GARRETT A1C S BASIC 25548 COMBINED COMBINED METABOLIC 5 PHYSICIAN PHYSICIAN PANEL S LA S LA CALCIUM TOTAL ECG 95387 JUN RUGGIERO ROUTINE 5 [facility] W/LEAST P 12 LDS I&R ONLY RADIOLOGI 72441 JUN BARAHONA C EXAM 5 [facility] CHEST 2 INC INC VIEWS FRONTAL&L ATERAL ECG 34340 JUN BARAHONA ROUTINE 5 [facility] ECG INC INC W/LEAST 12 LDS TRCG ONLY W/O I&R GROUND A0425 [facility] MILEA 5 AMBULANCE AMBULANCE PER SERVICE SERVICE STATUTE MILE AMBULANCE [id number] [facility] SERVICE 5 AMBULANCE AMBULANCE BLS SERVICE SERVICE [facility] 22572 [facility] DISCHAR[facility] 4 NE [facility] KATY DAY MEDICAL MANAGEMEN G T 30 MIN/< DUP-SCAN 96477 [facility] CHESTER THO XTR VEINS 4 NE [facility] COMPLETE MEDICAL G BILATERAL STUDY DUPLEX 83049 [facility] SCAN 4 NE [facility] EXTRACRAN MEDICAL IAL ART G COMPL BI STUDY ANGIOCARD 8853 [facility] IOGRAPHY [address] [place] [address] OF LEFT HEART STRUCTURE S PERQ 0066 [facility] [address] NAL CORONARY ANGIOPLAS TY PTCA PROCEDURE 0040 [facility] ON [address] [place] [address] SINGLE VESSEL LEFT [address] CARDIAC CATHETERI ZATION CORONARY 8856 [facility] ARTERIOGR [address] [place] [address] APHY USING TWO CATHETERS CATH PLMT 60912 [place] HRT & 4 [facility] NAFISA ARTS MEDICAL W/NJX & G ANGIO IMG S&I ECHO 45216 DIANNE ROMO TTHRC R-T 4 NE [facility]ALTH KATY 2D MEDICAL W/WOM-MOD G E COMPL SPEC&COLR D PRQ 48029 DIANNE WANG TRLUML 4 NE [facility] NAFISA CORONARY MEDICAL ANGIOPLAS G TY ONE ART/BRANC H ECG 76750 [facility] THO ROUTINE 4 NE HEALTH ECG MEDICAL W/LEAST G 12 LDS I&R ONLY INITIAL 13723 [facility] 4 NE [facility] LIS CARE/DAY MEDICAL 70 G MINUTES AMBULANCE A0429 [facility] SERVICE 4 AMBULANCE AMBULANCE BLS SERVICE SERVICE EMERGENCY TRANSPORT GROUND A0425 [facility] PER SERVICE SERVICE STATUTE MILE AMB A0427 [facility] 4 AMBULANCE AMBULANCE ALS SERVICE SERVICE EMERGENCY TRANSPORT LEVEL 1 ECG 89966 [facility] THO ROUTINE 4 NE [facility] ECG MEDICAL W/LEAST G 12 LDS I&[place] [address] ZUHAIR BEINEKE HEAD/BRAI 4 MEDICAL PARKER N W/O IMAGING CONTRAST ASS MATERIAL RADIOLOGI 53844 [facility] CHATMANOMAR C EXAM 4 MEDICAL CHERELLE CHEST 2 IMAGING VIEWS ASS FRONTAL&[place] [address] ZUHAIR BEINEKE ABDOMEN & 4 MEDICAL PARKER PELVIS IMAGING W/[place] [address] ERENDIRAY BEINEKE CERVICAL 4 MEDICAL PARKER SPINE W/[place] [address] ERENDIRAY BEINEKE CERVICAL 4 MEDICAL PARKER SPINE W/[place] [address] ERENDIRAY BEINEKE HEAD/BRAI 4 MEDICAL PARKER N W/O IMAGING CONTRAST ASS MATERIAL CT LUMBAR 70684 [facility] BEINEKE SPINE 4 MEDICAL PARKER W/O IMAGING CONTRAST ASS MATERIAL AMB A0427 [facility] SERVICE 4 AMBULANCE AMBULANCE ALS SERVICE SERVICE EMERGENCY TRANSPORT LEVEL 1 GROUND A0425 [facility]ULANCE PER SERVICE SERVICE STATUTE MILE GROUND A0425 [facility] 4 AMBULANCE AMBULANCE PER SERVICE SERVICE STATUTE MILE AMB A0427 [facility] SERVICE 4 AMBULANCE AMBULANCE ALS SERVICE SERVICE [place] [address] ZUHAIR CHATMANUTCHER HEAD/BRAI 4 MEDICAL CHERELLE N W/O IMAGING CONTRAST ASS MATERIAL RADIOLOGI 38399 ZUHAIR OMAR C 4 MEDICAL CHERELLE EXAMINATI IMAGING ON CHEST ASS SINGLE VIEW FRONTAL RADIOLOGI 45365 [facility] OMAR C EXAM 4 MEDICAL CHERELLE CHEST 2 IMAGING VIEWS ASS FRONTAL&L ATERAL O2 CONC 1 E1390 CRISTINO CRISTINO DEL PORT 4 HOME HOME 85%/>02 MEDICAL MEDICAL CONC AT EQUIPME EQUIPME PRS FLW RATE O2 CONC 1 E1390 CRISTINO CRISTINO [place] 4 HOME HOME 85%/>02 MEDICAL MEDICAL CONC AT EQUIPME EQUIPME [facility] FLW RATE RADEX HIP 43904 [facility] OMAR 4 MEDICAL CHERELLE UNILATERA IMAGING L ASS COMPLETE MINIMUM 2 VIEWS RADIOLOGI 46905 [facility] OMAR C 4 MEDICAL CHERELLE EXAMINATI IMAGING ON PELVIS ASS 1/2 VIEWS RADIOLOGI 03073 [facility] OMAR C 4 MEDICAL CHERELLE EXAMINATI IMAGING ON KNEE 3 ASS VIEWS KNEE L1830 [employer] [facility] ORTHOSIS 4 IMMOBLIZE R CANVAS LONGTUDNL PREFAB GROUND A0425 [facility] 4 AMBULANCE AMBULANCE PER SERVICE SERVICE STATUTE MILE AMBULANCE A0429 [facility] SERVICE 4 AMBULANCE AMBULANCE BLS SERVICE SERVICE EMERGENCY TRANSPORT BLOOD 58299 FAMILY FAMILY COUNT 4 CARE CARE COMPLETE ASSOCIATE ASSOCIATE AUTO&AUTO S S DIFRNTL WBC O2 CONC 1 E1390 CRISTINO CRISTINO DEL [place] 4 HOME HOME 85%/>02 MEDICAL MEDICAL CONC [place] [address] ZUHAIR CHATMANUTCHER HEAD/BRAI 4 MEDICAL CHERELLE N W/O IMAGING CONTRAST ASS MATERIAL O2 CONC 1 E1390 CRISTINO CRISTINO DEL [place] 4 HOME HOME 85%/>02 MEDICAL MEDICAL CONC AT EQUIPME EQUIPME [facility] FLW RATE O2 CONC 1 E1390 [facility] HOME HOME 85%/>02 MEDICAL MEDICAL CONC AT E[facility]ATE AMBULANCE A0429 [facility] 4 AMBULANCE AMBULANCE BLS SERVICE SERVICE EMERGENCY TRANSPORT GROUND A0425 [facility] 4 AMBULANCE AMBULANCE PER SERVICE SERVICE STATUTE MILE O2 CONC 1 E1390 [facility] HOME 85%/>02 MEDICAL MEDICAL CONC AT EQUIPME EQUIPME [facility] FLW RATE AMBULANCE A0429 [facility] 4 AMBULANCE AMBULANCE BLS SERVICE SERVICE EMERGENCY TRANSPORT GROUND A0425 [facility] 4 AMBULANCE AMBULANCE PER SERVICE SERVICE STATUTE MILE PRTBLE E0431 MEY MATHIAS GASEOUS 4 HOSP HOSP O2 SYS EQUIP EQUIP RENT; FLWMTR HUMIDFR&M ASK GROUND [address] [place] [address] 4 AMBULANCE AMBULANCE PER SERVICE SERVICE STATUTE MILE AMBULANCE A0429 [facility] 4 AMBULANCE AMBULANCE BLS [place] [address] OMAR OMAR HEAD/BRAI 4 CHERELLE CHERELLE N W/O CONTRAST MATERIAL O2 CONC 1 E1390 MEY MATHIAS [place] 4 HOSP HOSP 85%/>02 EQUIP EQUIP CONC AT [facility] FLW RATE PRTBLE E0431 MEY MATHIAS GASEOUS 4 HOSP HOSP O2 SYS EQUIP EQUIP RENT; FLWMTR HUMIDFR&M ASK O2 CONC 1 E1390 [facility] MATHIAS [place] 4 HOSP HOSP 85%/>02 EQUIP EQUIP CONC AT [facility] FLW RATE AMBULANCE A0429 [facility] 4 AMBULANCE AMBULANCE BLS SERVICE SERVICE EMERGENCY TRANSPORT GROUND [address] [place] [address] 4 AMBULANCE AMBULANCE PER SERVICE SERVICE STATUTE MILE RADIOLOGI 15456 OMAR OMAR C 4 CHERELLE CHERELEL EXAMINATI ON CHEST SINGLE VIEW FRONTAL PRTBLE [...] HOSP HOSP O2 SYS EQUIP EQUIP RENT; HIWMOR HUMIDFR&M ASK O2 CONC 1 E1390 MEY MATHIAS [place] 3 HOSP HOSP 85%/>02 EQUIP EQUIP CONC AT PRS FLW RATE MYOCARDIA 69220 OMAR OMAR L SPECT 3 CHERELLE CHERELLE SINGLE STUDY AT REST OR STRESS TECHNETIU A9500 JUN Fisher TC-99M 3 [facility] SESTAMIBI INC INC DX PER STUDY DOSE CV STRS 22722 JUN BARAHONA TST 3 [facility] XERS&/OR INC INC RX CONT ECG TRCG ONLY INJECTION [id number] JUN BARAHONA 3 [facility] REGADENOS INC INC ON 0.1 MG ECHO 48934 JUN BARAHONA TTHRC R-T 3 [facility] 2D INC INC W/WOM-MOD E COMPL SPEC&COLR D CV STRS 46582 ANA MARIA RODGERS JR TST 3 DWI DWI XERS&/OR RX CONT ECG I&R ONLY PRTBLE E0431 MEY MATHIAS GASEOUS 3 HOSP HOSP O2 SYS EQUIP EQUIP RENT; FLWMTR HUMIDFR&[place] [address] OMAR OMAR HEAD/BRAI 3 CHERELLE CHERELLE N W/O CONTRAST MATERIAL O2 CONC 1 E1390 MEY MATHIAS [place] 3 HOSP HOSP 85%/>02 EQUIP EQUIP CONC AT [facility] FLW RATE RADEX 21822 OMAR OMAR SPINE 3 CHERELLE CHERELLE CERVICAL 2 OR 3 VIEWS RADEX 87236 OMAR OMAR SPINE 3 CHERELLE CHERELLE THORACIC 3 VIEWS RADIOLOGI 06518 OMAR OMAR C 3 CHERELLE CHERELLE EXAMINATI ON PELVIS 1/2 VIEWS RADEX 05118 JUN BARAHONA SPINE 3 [facility] CERVICAL INC INC 4 OR 5 VIEWS RADEX 09493 JUN BARAHONA SPINE 3 [facility] LUMBOSACR INC INC AL MINIMUM 4 VIEWS RADEX 27626 OMAR OMAR SPINE 3 CHERELLE CHERELLE LUMBOSACR AL 2/3 VIEWS THERAPEUT 10147 JUN BARAHONA IC 3 [facility] PROPHYLAC INC INC TIC/DX INJECTION SUBQ/IM PRTBLE E0431 MEY ROTHERTS GASEOUS 3 HOSP HOSP O2 SYS EQUIP EQUIP RENT; FLWMTR HUMIDFR&M ASK O2 CONC 1 E1390 MEY MATHIAS [place] 3 HOSP HOSP 85%/>02 EQUIP EQUIP CONC AT [facility] FLW RATE PRTBLE E0431 MEY CARVAJALERTS GASEOUS 3 HOSP HOSP O2 SYS EQUIP EQUIP RENT; FLWMTR HUMIDFR&M ASK SPMTRY 81334 JUN BARAHONA W/VC 3 [facility] EXPIRATOR INC INC Y CLAUDIA W/WO MXML VOL VNTJ O2 CONC 1 E1390 MEY MATHIAS [place] 3 HOSP HOSP 85%/>02 EQUIP EQUIP CONC AT [facility] FLW RATE PRTBLE E0431 MEY ROTHERTS GASEOUS 3 HOSP HOSP O2 SYS EQUIP EQUIP RENT; FLWMTR HUMIDFR&M ASK 3D 34509 JUN BARAHONA RENDERING 3 [facility] INC INC W/INTERP& POSTPROC DIFF WORK STATION LOCM Q9967 JUN BARAHONA 300-399 3 [facility] MG/ML INC INC IODINE CONCENTRA TION PER ML CT THORAX 17854 JUN BARAHONA 3 [facility] W/CONTRAS INC INC T MATERIAL O2 CONC 1 E1390 MEY MATHIAS [place] 3 HOSP HOSP 85%/>02 EQUIP EQUIP CONC AT [facility] FLW R[place] COMPREHEN 71122 COMBINED COMBINED SIVE 3 PHYSICIAN PHYSICIAN METABOLIC S LA S LA PANEL PRTBLE E0431 MEY MATHIAS GASEOUS 3 HOSP HOSP O2 SYS EQUIP EQUIP RENT; FLWMTR HUMIDFR&M ASK O2 CONC 1 E1390 MEY MATHIAS [place] 3 HOSP HOSP 85%/>02 EQUIP EQUIP CONC AT PRS FLW RATE ECG 14961 JUN BARAHONA ROUTINE 3 MEM HOS[facility] MEM [...] EQUIP CONC AT PRS FLW RATE BASIC 87982 JUN BARAHONA METABOLIC 2 [facility] PANEL INC INC CALCIUM TOTAL CREATINE 15941 JUN BARAHONA KINASE 2 [facility] TOTAL INC INC AMB A0427 [facility] 2 AMBULANCE AMBULANCE ALS SERVICE SERVICE EMERGENCY TRANSPORT LEVEL 1 GROUND A0425 [facility] AM[facility]ULANCE [place] [address] JUN BARAHONA TROPONIN 2 [facility] QUANTITAT INC INC ELVIRA ECG 51369 JUN MILLENIUM ROUTINE 2 [facility] ECG INC LABORATOR W/LEAST IES OF CA 12 LDS TRCG ONLY W/O I&R BLOOD 09955 JUN BARAHONA COUNT 2 [facility] COMPLETE INC INC AUTO&AUTO DIFRNTL WBC RADIOLOGI 79027 OMAR OMAR C 2 CHERELLE CHERELLE EXAMINATI ON CHEST SINGLE VIEW FRONTAL ECG 97464 BAHMAN RUGGIERO ROUTINE 2 CHANEL CHANEL ECG W/LEAST 12 LDS I&R ONLY CREATINE 50843 JUN BARAHONA KINASE MB 2 [facility] [place] [address] JUN BARAHONA FREE 2 [facility] [place] [address] JUN BARAHONA THYROID 2 [facility] STIMULATI [place] [address] JUN ROBERTSON TRIIODOTH 2 [facility] YRONINE INC INC T3 TOTAL TT3 CYANOCOBA 88725 COMBINED COMBINED MIHAELA 2 PHYSICIAN PHYSICIAN VITAMIN S LA S LA B-12 25 18366 COMBINED COMBINED HYDROXY 2 PHYSICIAN PHYSICIAN INCLUDES S [place] [address] COMBINED COMBINED THYROID 2 PHYSICIAN PHYSICIAN STIMULATI S LA S LA NG HORMONE TSH COMPREHEN 89418 COMBINED COMBINED SIVE 2 PHYSICIAN PHYSICIAN METABOLIC S LA S LA PANEL CULTURE 27378 COMBINED COMBINED BACTERIAL 2 PHYSICIAN PHYSICIAN S LA S LA QUANTTATI VE COLONY COUNT URINE PRTBLE E0431 MEY MATHIAS GASEOUS 2 HOSP HOSP O2 SYS EQUIP EQUIP RENT; FLWMTR HUMIDFR&M ASK O2 CONC 1 E1390 MEY MATHIAS [place] 2 HOSP HOSP 85%/>02 EQUIP EQUIP CONC AT [facility] FLW RATE GROUND A0425 [facility] MILEA 2 AMBULANCE AMBULANCE PER SERVICE SERVICE STATUTE MILE AMBULANCE A0429 [facility] 2 AMBULANCE AMBULANCE BLS SERVICE SERVICE EMERGENCY TRANSPORT PRTBLE E0431 MEY MATHIAS GASEOUS 2 HOSP HOSP O2 SYS EQUIP EQUIP RENT; FLWMTR HUMIDFR&M ASK O2 CONC 1 E1390 MEY MATHIAS [place] 2 HOSP HOSP 85%/>02 EQUIP EQUIP CONC AT [facility] FLW RATE PRTBLE E0431 MEY MATHIAS GASEOUS 2 HOSP HOSP O2 SYS EQUIP EQUIP RENT; FLWMTR HUMIDFR&M ASK O2 CONC 1 E1390 MEY MATHIAS [place] 2 HOSP HOSP 85%/>02 EQUIP EQUIP CONC AT [facility] FLW RATE PRTBLE E0431 MEY MATHIAS GASEOUS 2 HOSP HOSP O2 SYS EQUIP EQUIP RENT; FLWMTR HUMIDFR&M ASK GROUND A0425 [facility] AMBULANCE PER SERVICE SERVICE STATUTE MILE AMB A0427 [facility] 2 AMBULANCE AMBULANCE ALS SERVICE SERVICE EMERGENCY TRANSPORT LEVEL 1 O2 CONC 1 E1390 MEY MATHIAS [place] 2 HOSP HOSP 85%/>02 EQUIP EQUIP CONC AT [facility] [place] [address] JUN BARAHONA LIPASE 2 [facility] INC INC GROUND A0425 [facility] AMBULANCE PER SERVICE SERVICE STATUTE MILE AMBULANCE A0429 [facility] 2 AMBULANCE AMBULANCE BLS SERVICE SERVICE EMERGENCY TRANSPORT BLOOD 61371 JUN BARAHONA COUNT 2 [facility] COMPLETE INC INC AUTO&[place] [address] JUN BARAHONA ABDOMEN & 2 [facility] PELVIS INC INC W/O CONTRAST MATERIAL COMPREHEN 02739 JUN BARAHONA SIVE 2 [facility] METABOLIC INC INC PANEL 3D 50967 JUN BARAHONA RENDERING 2 [facility] INC INC W/INTERP& POSTPROC DIFF WORK STATION PRTBLE E0431 MEY MATHIAS GASEOUS 2 HOSP HOSP O2 SYS EQUIP EQUIP RENT; FLWMTR HUMIDFR&M ASK O2 CONC 1 E1390 MEY MATHIAS [place] 2 HOSP HOSP 85%/>02 EQUIP EQUIP CONC AT [facility] FLW RATE PRTBLE E0431 ROMAIN HOYOS GASEOUS 2 HOME HOME O2 SYS MEDICAL MEDICAL RENT; EQUIP EQUIP FLWMTR [place]UMIDFR&[place] [address] JUN BARAHONA TROPONIN 2 [facility] QUANTITAT INC INC ELVIRA BLOOD 41706 JUN BARAHONA COUNT 2 [facility] COMPLETE INC INC AUTO&AUTO DIFRNTL WBC URNLS DIP 85037 JUN BARAHONA 2 [facility] STICK/TAB INC INC LET REAGENT AUTO MICROSCOP Y CREATINE 00522 JUN BARAHONA KINASE 2 [facility] TOTAL INC INC RHYTHM 09808 JUN BARAHONA ECG 1-3 2 [facility] LEADS INC INC TRACING ONLY W/O I&R CREATINE 63572 JUN BARAHONA KINASE MB 2 [facility] FRACTION INC INC ONLY COMPREHEN 78301 JUN BARAHONA SIVE 2 [facility] METABOLIC INC INC PANEL ECG 72574 JUN BARAHONA ROUTINE 2 [facility] ECG INC INC W/LEAST 12 LDS TRCG ONLY W/O I&R ECG 86632 JUN BARAHONA ROUTINE 2 [facility] W/LEAST P P 12 LDS I&R ONLY [...] EQUIP EQUIP PRSC FLW RATE URNLS DIP 24665 JUN BARAHONA 2 [facility]OS[facility] [...] EQUIP EQUIP PRSC FLW RATE AMB A0427 [facility] 2 AMBULANCE AMBULANCE ALS SERVICE SERVICE EMERGENCY TRANSPORT LEVEL 1 GROUND A0425 [facility] MILEAGE 2 AMBULANCE AMBULANCE PER SERVICE SERVICE STATUTE MILE RADIOLOGI 81932 JUN Machado 2 [facility] EXAMINATI INC INC ON PELVIS 1/2 VIEWS RADEX HIP 72318 JUN BARAHONA 2 [facility] UNILATERA INC INC L COMPLETE MINIMUM 2 VIEWS PRTBLE E0431 ROMAIN HOYOS GASEOUS 2 HOME HOME O2 SYS MEDICAL MEDICAL RENT; EQUIP EQUIP FLWMTR HUMIDFR&M ASK O2 CONC 1 E1390 ROMAIN HOYOS DEL PORT 2 HOME HOME 85%/>02 MEDICAL MEDICAL CONC AT EQUIP EQUIP PRSC FLW RATE BLOOD 49878 MARCO A [place] COUNT 2 G G COMPLETE AUTO&AUTO DIFRNTL WBC URNLS DIP 72278 MARCO A [place] 2 G G STICK/TAB LET RGNT NON-AUTO W/O MICRSCP NONINVASI 25941 MARCO A [place] VE 2 G G [...] EQUIP EQUIP PRSC FLW RATE AMBULANCE A0429 [facility] 1 AMBULANCE AMBULANCE BLS SERVICE SERVICE EMERGENCY TRANSPORT GROUND A0425 [facility] MILEAGE 1 AMBULANCE AMBULANCE PER SERVICE SERVICE STATUTE MILE RADEX 83408 JUN BARAHONA SPINE 1 [facility] LUMBOSACR INC INC AL MINIMUM 4 VIEWS RADEX 67459 [place] OMAR SPINE 1 MEDICAL CHERELLE CERVICAL IMAGING 4 OR 5 ASS VIEWS RADIOLOGI 45538 JUN BARAHONA C 1 [facility] EXAMINATI INC INC ON PELVIS 1/2 VIEWS RADEX 54237 JUN BARAHONA SPINE 1 [facility] CERVICAL INC INC 6 OR MORE VIEWS AMBULANCE A0429 [facility] 1 AMBULANCE AMBULANCE BLS SERVICE SERVICE EMERGENCY TRANSPORT GROUND A0425 [facility] MILEAGE 1 AMBULANCE AMBULANCE PER SERVICE SERVICE STATUTE MILE PRTBLE E0431 ROMAIN HOYOS GASEOUS 1 HOME HOME O2 SYS MEDICAL MEDICAL RENT; EQUIP EQUIP FLWMTR HUMIDFR&M ASK COLSC FLX 41098 Jeannette DENNY W/RMNACHO 1 DENISHA PALOMARES OF TUMOR PSC POLYP LESION SNARE TQ ESOPHAGOG 02980 JUN BARAHONA ASTRODUOD 1 [facility] ENOSCOPY INC [place] [address] SURG 1 LG & PATHOLOGY DUBILIER GROSS&[place] [address] JUN BARAHONA INFUSION 1 [facility] MEM [...] AT EQUIP EQUIP PRSC FLW RATE BLOOD 66213 JUN BARAHONA COUNT 1 [facility] COMPLETE INC INC AUTO&AUTO DIFRNTL WBC GROUND A0425 [facility] MILEAGE 1 AMBULANCE AMBULANCE PER SERVICE SERVICE STATUTE MILE URNLS DIP 73953 JUN BARAHONA 1 [facility] STICK/TAB INC INC LET REAGENT AUTO MICROSCOP Y AMBULANCE A0429 [facility] SERV[facility] 1 AMBULANCE AMBULANCE BLS SERVICE SERVICE EMERGENCY TRANSPORT COMPREHEN 39997 JUN BARAHONA SIVE 1 [facility] METABOLIC INC INC PANEL BLOOD 29858 FAMILY FAMILY COUNT 1 CARE CARE COMPLETE [...] RENT; EQUIP EQUIP FLWMTR HUMIDFR&M ASK LIPID 90600 FAMILY MARCO A J PANEL 1 STOCK TURNER S TRANSFERA 06766 FAMILY MARCO A J SE 1 CARE ASPARTATE ASSOCIATE AMINO S AST SGOT TRANSFERA 78469 FAMILY EASLEY SE 1 CARE HOMAR ALANINE [...] AT EQUIP EQUIP PRSC FLW RATE 3D 09876 JUN BARAHONA RENDERING 1 [facility] INC INC W/INTERP& POSTPROC DIFF WORK STATION ECHO 38420 JUN BARAHONA TTHRC R-T 1 [facility] 2D INC INC W/WOM-MOD E COMPL SPEC&COLR D CT LUMBAR 89994 JUN BARAHONA SPINE 1 [facility] W/O INC INC CONTRAST MATERIAL RADIOLOGI 86417 JUN BARAHONA C EXAM 0 [facility] CHEST 2 INC INC VIEWS FRONTAL&L ATERAL BLOOD 89053 JUN BARAHONA COUNT 0 [facility] COMPLETE INC INC AUTO&AUTO DIFRNTL WBC CREATINE 23059 JUN BARAHONA KINASE MB 0 [facility] FRACTION INC INC ONLY BASIC 45285 JUN BARAHONA METABOLIC 0 [facility] PANEL INC INC CALCIUM TOTAL CREATINE 62136 JUN BARAHONA KINASE 0 [facility] [place] [address] JUN BARAHONA TROPONIN 0 [facility] QUANTITAT INC INC ELVIRA NATRIURET 36776 JUN BARAHONA IC 0 [facility] PEPTIDE INC INC URNLS DIP 25377 JUN ROBERTSON 0 [facility] STICK/TAB INC INC LET REAGENT AUTO MICROSCOP Y AMBULANCE A0429 [facility] 0 AMBULANCE AMBULANCE BLS SERVICE SERVICE EMERGENCY TRANSPORT GROUND A0425 [facility] MILEAGE 0 AMBULANCE AMBULANCE PER SERVICE SERVICE [...] EQUIP EQUIP PRSC FLW RATE GROUND A0425 [facility] MILEAGE 0 AMBULANCE AMBULANCE PER SERVICE SERVICE STATUTE MILE AMBULANCE A0429 [facility] SERVICE 0 AMBULANCE AMBULANCE BLS SERVICE SERVICE EMERGENCY TRANSPORT RADEX 66800 JUN BARAHONA HAND 0 [facility] MEM [...] AT EQUIPMENT EQUIPMENT PRSC FLW RATE GLUCOSE 82275 FAMILY MELO, POST 0 CARE Lior ESPINOZA GLUCOSE ASSOCIATE DOSE S BLOOD 27036 FAMILY MELO, COUNT 0 FANTASMA ESPINOZA COMPLETE [...] AT EQUIPMENT EQUIPMENT PRSC FLW RATE COMPREHEN 51196 COMBINED COMBINED SIVE 0 PHYSICIAN PHYSICIAN METABOLIC [...] AT EQUIPMENT EQUIPMENT PRSC FLW RATE IAADI 59218 JUN BARAHONA INFLUENZA 9 [facility] B VIRUS INC INC IAADI 45734 JUN BARAHONA INFFLUENZ 9 [facility] A A VIRUS INC INC URNLS DIP 55876 JUN JUN 9 [facility] STICK/TAB INC INC LET REAGENT AUTO MICROSCOP Y CULTURE 30610 JUN BARAHONA BACTERIAL 9 [facility] INC INC QUANTTATI VE COLONY COUNT URINE O2 CONC 1 E1390 ROMAIN HOYOS DEL PORT 9 HOME HOME 85%/>02 MEDICAL MEDICAL CONC AT EQUIPMENT EQUIPMENT PRSC FLW RATE O2 CONC 1 E1390 ROMAIN HOYOS DEL PORT 9 HOME HOME 85%/>02 MEDICAL MEDICAL CONC AT EQUIPMENT EQUIPMENT PRSC FLW RATE SMR PRIM 59469 JUNDANITZA ROBERTSON SRC 9 [facility] GRAM/GIEM INC INC SA STAIN BCT FUNGI/CANDICE L RADIOLOGI 02421 Jeannette BRAVO EXAM 9 MEDICAL AMAURI CHEST 2 IMAGING VIEWS ASSOCIATE FRONTAL&L S ATERAL CUL BACT 01108 JUN BARAHONA XCPT 9 [facility] URINE INC INC BLOOD/STO OL AEROBIC ISOL O2 CONC 1 E1390 ROMAIN HOYOS DEL PORT 9 HOME HOME 85%/>02 MEDICAL MEDICAL CONC AT EQUIPMENT EQUIPMENT PRSC FLW RATE O2 CONC 1 E1390 ROMAIN HOYOS DEL PORT 9 HOME HOME 85%/>02 MEDICAL MEDICAL CONC AT EQUIPMENT EQUIPMENT PRSC FLW RATE RADEX HIP 46847 JUN BARAHONA 9 [facility] UNILATERA INC INC L COMPLETE MINIMUM 2 VIEWS RADEX 23768 ZUHIAR OMAR, ANKLE 9 MEDICAL AMAURI COMPLETE IMAGING MINIMUM 3 ASSOCIATE VIEWS S RADIOLOGI 30459 ZUHAIR OMAR, C 9 MEDICAL AMAURI EXAMINATI [...] AT EQUIPMENT EQUIPMENT PRSC FLW RATE CULTURE 02554 COMBINED COMBINED BACTERIAL 9 PHYSICIAN PHYSICIAN S LAB S LAB QUANTTATI VE COLONY COUNT URINE O2 CONC 1 E1390 ROMAIN HOYOS DEL PORT 9 HOME HOME 85%/>02 MEDICAL MEDICAL CONC AT EQUIPMENT EQUIPMENT PRSC FLW RATE O2 CONC 1 E1390 ROMAIN VENEGAS PORT 9 HOME HOME 85%/>02 MEDICAL MEDICAL CONC AT EQUIPMENT EQUIPMENT PRSC FLW RATE HEMOGLOBI 98960 COMBINED COMBINED N 9 PHYSICIAN PHYSICIAN GLYCOSYLA S LAB S LAB GARRETT A1C COMPREHEN 69655 COMBINED COMBINED SIVE 9 PHYSICIAN PHYSICIAN METABOLIC S LAB S LAB PANEL BLD GLU A4253 CRISTINO GREGG TEST/REAG 9 HOME MED HOME MED T STRIPS EQUIP. EQUIP. HOME BLD [facility] GLU MON-50 LANCETS A4259 CRISTINO CRISTINO [...] MED T STRIPS EQUIP. EQUIP. HOME BLD [facility] GLU MON-50 O2 CONC 1 E1390 ROMAIN HOYOS DEL PORT 8 HOME HOME 85%/>02 MEDICAL MEDICAL CONC AT EQUIPMENT EQUIPMENT PRSC FLW RATE CYSTO 68894 [place] MEDINA, BLADDER 8 [facility] DANIE D W/URETERA UROLOGY L PSC CATHETERI ZATION ANES 17824 ANESTHESI BINGCANG, TRANSURET 8 A B P HRAL ASSOCIATE W/URETHRO S, PSC CYSTOSCOP Y NOS ECG 79669 ROBLES JUSTICE, ROUTINE 8 [facility] ECG CLINIC W/LEAST PSC 12 LDS I&R ONLY THER 76866 JUN BARAHONA PROPH/DX 8 [facility] NJX INC INC SUBQ/IM ECG 44192 JUN BARAHONA ROUTINE 8 [facility] ECG INC INC W/LEAST 12 LDS TRCG ONLY W/O I&R ECG 51916 JUN BARNETT ROUTINE 8 [facility] ECG [facility] W/LEAST PROF SERV 12 LDS I&R ONLY RADIOLOGI 94844 Jeannette GAMBLE 8 MEDICAL ALVIN Orozco EXAMINATI IMAGING ON CHEST ASSOCIATE SINGLE S VIEW FRONTAL CREATINE 73628 JUN BARAHONA KINASE MB 8 [facility] FRACTION INC INC ONLY BLOOD 09449 JUN BARAHONA COUNT 8 [facility] COMPLETE INC INC AUTO&[place] [address] JUN JUN TROPONIN 8 [facility] QUANTITAT INC INC ELVIRA AMB A0422 [facility] OXYGEN&O2 8 AMBULANCE AMBULANCE SUPPLIES SERVICE SERVICE LIFE SUSTAININ G SITUATION GROUND A0425 [facility] PER SERVICE SERVICE STATUTE MILE AMB A0427 [facility] SERVICE 8 AMBULANCE AMBULANCE ALS SERVICE SERVICE EMERGENCY TRANSPORT LEVEL 1 BASIC 95230 JUN JUN METABOLIC [address] [facility] PANEL INC INC CALCIUM TOTAL CREATINE 99086 JUNADNITZA BARAHONA KINASE [address] [facility] TOTAL INC INC CULTURE 04078 COMBINED COMBINED BACTERIAL 8 PHYSICIAN PHYSICIAN S [...] PNEUMAT EQUIPMENT EQUIPMENT NEBULIZR DISPBL GROUND A0425 [facility] 8 AMBULANCE AMBULANCE PER SERVICE SERVICE STATUTE MILE AMB A0427 [facility] SERVICE 8 AMBULANCE AMBULANCE ALS SERVICE SERVICE EMERGENCY TRANSPORT LEVEL 1 ECG 89714 NATHALIE RAYMOND 8 [place] W/LEAST PROF SERV 12 LDS I&R ONLY RADIOLOGI 49851 [place] Jeannette NELSON 8 MEDICAL AMAURI EXAMINATI IMAGING [...] MED HOME MED OF 100 EQUIP. EQUIP. [facility] BLD GLU A4253 CRISTINO GREGG TEST/REAG 8 HOME MED HOME MED T STRIPS EQUIP. EQUIP. HOME [facility] GLU MON-50 BRNCDILAT 58231 JUN BARAHONA RSPSE 8 [facility] SPMTRY INC INC PRE&POST- BRNCDILAT ADMN FUNCTIONA 95764 JUN BARAHONA L 8 [facility] RESIDUAL INC INC CAPACITY OR RESIDUAL VOLUME DETER 66771 JUN BARAHONA MALDISTRI 8 [facility] BJ OF INC INC INSPIRED GAS N WSHOT CURVE DETER 31588 JUN BARAHONA AIRWY 8 [facility] CLOSING INC INC VOL 1 BRTH TSTS PRESSURIZ 60322 JUN BARAHONA ED/NONPRE 8 [facility] SSURIZED INC INC INHALATIO [...] AT EQUIPMENT EQUIPMENT PRSC FLW RATE DRUG 85351 JUN BARAHONA SCREEN 8 [facility] QUANTITAT [place] [address] JUN BARAHONA TROPONIN 8 [facility] QUANTITAT INC INC ELVIRA BLOOD 26351 JUN BARAHONA COUNT 8 [facility] COMPLETE INC INC AUTO&AUTO DIFRNTL WBC URNLS DIP 47582 JUN BARAHONA 8 [facility] STICK/TAB INC INC LET REAGENT AUTO MICROSCOP Y CREATINE 80369 JUN BARAHONA KINASE 8 [facility] TOTAL INC INC RADEX 38722 JUN BARAHONA ABDOMEN 1 8 [facility] INC INC ANTEROPOS TERIOR VIEW ECG 84639 JUN BARAHONA ROUTINE 8 [facility] ECG INC INC W/LEAST 12 LDS TRCG ONLY W/O I&R COMPREHEN 08361 JUN BARAHONA SIVE 8 [facility] METABOLIC INC INC PANEL RADIOLOGI 57814 JUN BARAHONA C 8 [facility] EXAMINATI INC INC ON CHEST SINGLE VIEW FRONTAL ECG 00150 JUN BARNETT ROUTINE 8 [facility] SAM F W/LEAST PROF SERV 12 LDS I&R ONLY CULTURE 17829 JUN BARAHONA BACTERIAL 8 [facility] INC INC QUANTTATI VE COLONY COUNT URINE RHYTHM 44943 JUN BARAHONA ECG 1-3 8 MEM [facility] HOSP LEADS INC INC TRACING ONLY W/O I&R CREATINE 90511 JUN BARAHONA KINASE MB 8 [facility] FRACTION INC INC ONLY O2 CONC 1 E1390 [place] CYNFRANCHESCAANA DEL PORT 8 HOME HOME 85%/>02 MEDICAL MEDICAL CONC AT EQUIPMENT EQUIPMENT PRSC FLW RATE O2 CONC 1 E1390 [place] CYNTHIA[place] DEL PORT 8 HOME HOME 85%/>02 MEDICAL MEDICAL CONC AT EQUIPMENT EQUIPMENT PRSC FLW RATE AMB A0427 [facility] 8 AMBULANCE AMBULANCE ALS SERVICE SERVICE EMERGENCY TRANSPORT LEVEL [address] [facility] 8 AMBULANCE AMBULANCE PER SERVICE SERVICE STATUTE MILE ECG 90598 JUN ROY, ROUTINE 8 [facility] W/LEAST PROF SERV 12 LDS I&R ONLY RADIOLOGI 24457 Jeannette BRAVO 8 MEDICAL AMAURI EXAMINATI IMAGING ON CHEST ASSOCIATE SINGLE S VIEW FRONTAL ECG 11724 ROBLES LI ROUTINE 8 MIKKI AMARAL ECG CLINIC W/LEAST PSC 12 LDS I&R ONLY INJECTION 76430 ROBLES LI CARDIAC 8 MIKKI AMARAL CATHJ L CLINIC VENTR/L PSC ATR ANGIOGRAP H L HRT 16316 ROBLES LI CATHETERI 8 [facility]I AMARAL ZATION CLINIC [place] [address] Jeannette GAMBOA-TARIQ 8 MIKKI AMARAL F/SLCTV C CLINIC ANGRP PSC I SI&R 67359 ROBLES LI F/NJX PX 8 MIKKI AMARAL DURING CLINIC C-CATHJ PSC VENTR&/AT R ANGRPH I SI&R 37772 ROBLES LI F/NJX PX 8 [facility] C-CATHJ PSC PULM&/OR SELECT LANCETS A4259 CRISTINO CRISTINO PER BOX 8 HOME MED HOME MED OF 100 EQUIP. EQU[employer]. LLC [facility] BLD GLU A4253 CRISTINO CRISTINO TEST/REAG 8 HOME MED HOME MED T STRIPS EQUIP. EQUIP. HOME D [facility] GLU MON-50 SMALL A7004 CYNCARISA HOYOS VOLUME 8 HOME HOME NONFILTR MEDICAL MEDICAL PNEUMATIC EQUIPMENT EQUIPMENT NEBULIZER DISPBL ADMN SET A7003 CYNCARISA HOYOS SM VOL 8 HOME HOME NONFILTR MEDICAL MEDICAL PNEUMAT EQUIPMENT EQUIPMENT NEBULIZR DISPBL BLDR 86257 [facility], IRRIGATIO 8 LTH DANIE D N SMPL UROLOGY LAVAGE PSC &/INSTLJ O2 CONC 1 E1390 CYNCARISA HOYOS DEL PORT 8 HOME HOME 85%/>02 MEDICAL MEDICAL CONC AT EQUIPMENT EQUIPMENT PRSC FLW RATE BLDR 05790 [facility], IRRIGATIO 8 LTH DANIE D N SMPL UROLOGY [facility]AVAGE PSC &/INSTLJ BLDR 92832 [facility] MED[facility], IRRIGATIO 8 LTH DANIE D N SMPL UROLOGY LAVAGE PSC &/INSTLJ O2 CONC 1 E1390 CYNCARISA HOYOS DEL PORT 8 HOME HOME 85%/>02 MEDICAL MEDICAL CONC AT EQUIPMENT EQUIPMENT PRSC FLW RATE URNLS DIP 52297 JNU BARAHONA 8 [facility]OS[facility] STICK/TAB INC INC LET REAGENT AUTO MICROSCOP Y LANCETS A4259 CRISTINO CRISTINO PER BOX 8 HOME MED HOME MED OF 100 EQUIP[employer] [facility] BLD GLU A4253 CRISTINO CRISTINO TEST/REAG 8 HOME MED HOME MED T STRIPS EQUIP. EQUIP. HOME D [facility] GLU MON-50 SMALL A7004 ROMAIN HOYOS [...] Date Code Location Performer Type Date [facility]ICE 68999 [facility] 7 [facility] 10 P MINUTES OFFICE 34005 [facility] VISIT 5 HOSPITAL MINUTES P OFFICE 73551 [facility] 10 P [facility] J[facility] - 7 7 [facility] JUN - 7 7 [facility] JUN - 7 7 [facility] T OFFICE 21310 [facility] 7 7 [place] [address] HOSPITAL MINUTES HOSPITAL JUN - 7 7 [facility] OUTPATIEN T OFFICE 66478 [facility] 7 7 [facility] VISIT MEDICAL 25 G MINUTES EMERGENCY 33089 JUN DEPT 7 7 [facility] VISIT INC HIGH SEVERITY& THREAT [facility] JUN - 7 7 [facility] OUTPATIEN INC T OFFICE 46538 FAMILY MULBERRY OUTPATIEN 6 6 CARE T VISIT ASSOCIATE 15 S MINUTES EMERGENCY 13734 JUN 6 6 [facility] DEPARTMEN INC T VISIT LOW/MODER SEVERITY [facility] JUN - 6 6 [facility] OUTPATIEN INC T EMERGENCY 42770 AMPARO GRAY 6 6 [facility] T VISIT HIGH/URGE NT SEVERITY OFFICE 19805 FAMILY MARCO A OUTPATIEN 6 6 CARE MARZENA T VISIT ASSOCIATE 15 S MINUTES HOSPITAL JUN - 6 6 [facility] OUTPATIEN INC T OFFICE 02521 PROGRESSI JAMAR OUTPATIEN 6 6 VE MOUNA T VISIT PODIATRY 15 MINUTES OFFICE 70006 FAMILY MARCO A OUTPATIEN 6 6 CARE MARZENA T VISIT ASSOCIATE 15 S MINUTES OFFICE 41676 FAMILY MARCO A CONSULTAT 6 6 CARE MARZENA ION ASSOCIATE NEW/ESTAB S PATIENT 40 MIN OFFICE 07368 PROGRESSI JAMAR OUTPATIEN 6 6 VE MOUNA T VISIT PODIATRY 15 MINUTES HOSPITAL JUN - 6 6 [facility] OUTPATI[facility] INC T OFFICE 27650 FALLIS JAMAR OUTPATIEN 6 6 T NEW 30 MINUTES OFFICE 09608 [facility] PETTERosette OUTPATIEN 6 6 PHYSICIAN JAM T NEW 20 S GROUP MINUTES EMERGENCY 24062 [facility] 6 [facility] T VISIT HIGH/URGE NT SEVERITY HOSPITAL JUN - 6 6 [facility] OUTPATIEN [facility] T EMERGENCY 19918 JUN 6 6 [facility] T VISIT LOW/MODER SEVERITY EMERGENCY 00901 AMPAR[facility] 6 6 [facility] T VISIT HIGH/URGE NT SEVERITY OFFICE 32878 DIANNE RAMIREZ OUTPATIEN 6 6 [facility] T VISIT MEDICAL 25 G MINUTES EMERGENCY 50344 AMPARO LUNDBERG DEPT 6 6 PHYSIC[address] P[facility]ER V[facility] HIGH SEVERITY& THREAT [facility] J[facility] - 6 6 [facility] OUTPATIEN INC T HOSPITAL JUN - 5 5 [facility] OUTPATIEN INC T EMERGENCY 55011 AMPARO KRISHNA 5 5 PHYSICIAN LEONARDO CARVALHO S, [facility] T VISIT HIGH/URGE NT SEVERITY EMERGENCY 16964 JUN 5 5 [facility] LOW/MODER SEVERITY HOSPITAL JUN - 5 5 [facility] OUTPAT[facility]EN INC T OFFICE 61763 [facility] 5 5 [facility] T VISIT MEDICAL 40 G MINUTES HOSPITAL [place] [address] HOSPITAL INPATIENT OFFICE 59685 FAMILY MARCO A OUTPATIEN 5 5 CARE MARZENA T VISIT ASSOCIATE 25 S MINUTES EMERGENCY 34556 AMPARO Boudreaux 5 5 PHYSICIAN DEPARTMEN S, [facility] T VISIT HIGH/URGE NT SEVERITY HOSPITAL JUN - 5 5 [facility] OUTPATIEN INC T OFFICE 27812 FAMILY MARCO A OUTPATIEN 5 5 CARE MARZENA T VISIT ASSOCIATE 15 S [facility] JUN - 5 5 [facility] OUTPATIEN INC T OFFICE 91113 [facility] FALLUJI [facility] 5 5 [facility] NAFISA T VISIT MEDICAL 25 G MINUTES HOSPITAL JUN - 5 5 [facility] OUTPATIEN INC T OFFICE 08074 FAMILY MARCO A OUTPATIEN 5 5 CARE MARZENA T VISIT ASSOCIATE 15 S [facility] JUN - 5 5 [facility] OUTPATIEN INC T OFFICE 30247 FAMILY MARCO A OUTPATIEN 5 5 CARE MARZENA T VISIT ASSOCIATE 15 S MINUTES OFFICE 06570 FAMILY MARCO A OUTPATIEN 5 5 CARE MARZENA T VISIT ASSOCIATE 15 S [facility] JUN - 5 5 [facility] OUTPATIEN INC T EMERGENCY 65775 [facility] 4 4 ANTONIETA VISIT EMERGENCY HIGH PHYS SEVERITY& THREAT [facility] - 4 4 HOSPITAL INPATIENT EMERGENCY 24315 [facility] 4 4 ANTONIETA DEPARTMEN EMERGENCY T VISIT PHYS HIGH/URGE NT SEVERITY EMERGENCY 73997 [facility] 4 4 ANTONIETA [facility] DEPARTMEN EMERGENCY T VISIT PHYS HIGH/URGE NT SEVERITY EMERGENCY 79625 [facility] DEPT 4 4 ANTONIETA IMT VISIT EMERGENCY HIGH PHYS SEVERITY& THREAT FUN EMERGENCY 35418 [facility] 4 4 ANTONIETA BULL DEPARTMEN EMERGENCY T VISIT PHYS HIGH/URGE NT SEVERITY OFFICE 08639 FAMILY OUTPATIEN 4 4 CARE T VISIT ASSOCIATE 25 S MINUTES EMERGENCY 94383 [facility] 4 4 DEPARTMEN T VISIT HIGH/URGE NT SEVERITY EMERGENCY 20856 JAMAR ROLDAN 4 4 III SHEILA III SHEILA DEPARTMEN T VISIT MODERATE SEVERITY Emergency JAYNE Luna MD (ER) 4 17:14 4 18:32 [facility] EMERGENCY 61266 [facility] 4 4 DEPARTMEN T VISIT HIGH/URGE NT SEVERITY Emergency JAYNE Roldan (ER) 4 13:22 4 18:15 [facility] EMERGENCY 35763 JAMAR ROLDAN 4 4 III SHEILA III SHEILA DEPARTMEN T VISIT HIGH/URGE NT SEVERITY OFFICE 59695 [facility] OUTPATIEN 3 3 ALI SARABJIT ALI SARABJIT T VISIT 15 MINUTES HOSPITAL JUN - 3 3 [facility] OUTPATIEN INC T OFFICE 32389 [facility] OUTPATIEN 3 3 ALI SARABJIT ALI SARABJIT T NEW 45 MINUTES Emergency JAYNE TOUSSAINT (ER) 3 17:06 3 17:54 [facility] EMERGENCY 51333 ALFARIS ALFARIS DEPT 3 3 [facility] VISIT HIGH SEVERITY& THREAT FUNCJ Emergency JAYNE Lizarraga MD (ER) 3 17:27 3 21:15 [facility] EMERGENCY 22994 JUN 3 3 [facility] T VISIT MODERATE SEVERITY HOSPITAL JUN - 3 3 [facility] OUTPATIEN [facility] EMERGENCY 87909 TIN LIZARRAGA 3 3 [facility] T VISIT HIGH/URGE NT SEVERITY OFFICE 08836 MARCO A Faustin OUTPATIEN 3 3 G G T VISIT 15 MINUTES HOSPITAL JUN - 3 3 [facility] OUTPATIEN [facility] JUN - 3 3 [facility]PATIEN [facility] JUN - 3 3 [facility] JUN - 2 2 [facility] OUTPATIEN [facility] EMERGENCY 40112 JAMAR ROLDAN DEPT 2 2 III SHEILA III SHEILA VISIT HIGH SEVERITY& THREAT FUNCJ EMERGENCY 71122 JUN 2 2 [facility] T VISIT HIGH/URGE NT SEVERITY OFFICE 37849 JOSÉ MANUEL GEORGES CONSULTAT 2 2 L L ION NEW/ESTAB PATIENT 60 MIN HOSPITAL JUN - 2 2 [facility] OUTPATIEN [facility] EMERGENCY 83828 JUN 2 2 [facility] T VISIT HIGH/URGE NT SEVERITY HOSPITAL JUN - 2 2 [facility] OUTPATIEN INC T OFFICE 03729 LORIE MELO OUTPATIEN 2 2 R H R H T VISIT 15 MINUTES EMERGENCY 29275 ALEX SIMENTAL 2 2 EMERGENCY DEPARTMEN SERVICES T VISIT HIGH/URGE NT SEVERITY OFFICE 56477 MARCO A Faustin OUTPATIEN 2 2 T VISIT 25 MINUTES HOSPITAL JUN - 2 2 [facility] OUTPATIEN INC T EMERGENCY 74566 [facility] III SHEILA III SHEILA VISIT HIGH SEVERITY& THREAT FUNCJ EMERGENCY 28042 JUN 2 2 [facility] DEPARTMEN INC T VISIT MODERATE SEVERITY EMERGENCY 84083 ALEX KEYES DEPT 2 2 EMERGENCY SHEILA VISIT SERVICES HIGH SEVERITY& THREAT FUNCJ EMERGENCY 58164 JUN 2 2 [facility] DEPARTMEN INC T VISIT HIGH/URGE NT SEVERITY HOSPITAL JUN - 2 2 [facility] OUTPATIEN INC T OFFICE 04117 [facility] OUTPATIEN 2 2 KEO KEO T VISIT 10 MINUTES EMERGENCY 79758 ALEX ALCOCER 2 2 EMERGENCY DEPARTMEN SERVICES T VISIT HIGH/URGE NT SEVERITY HOSPITAL JUN - 2 2 [facility] OUTPATIEN INC T EMERGENCY 72211 JUN 2 2 [facility] DEPARTMEN INC T VISIT MODERATE SEVERITY EMERGENCY 66849 ALEX LIZARRAGA 2 2 EMERGENCY [facility] DEPARTMEN SERVICES T VISIT HIGH/URGE NT SEVERITY HOSPITAL JUN - 2 2 [facility] OUTPATIEN INC T EMERGENCY 69599 JUN 2 2 [facility] DEPARTMEN INC T VISIT HIGH/URGE NT SEVERITY OFFICE 15221 MARCO A Faustin OUTPATIEN 2 2 G G T VISIT 25 MINUTES EMERGENCY 09175 ALEX LIZARRAGA 1 1 EMERGENCY [facility] DEPARTMEN SERVICES T VISIT HIGH/URGE NT SEVERITY EMERGENCY 65314 JUN 1 1 [facility] DEPARTMEN INC T VISIT MODERATE SEVERITY HOSPITAL JUN - 1 1 [facility] OUTPATIEN INC T OFFICE 29533 Jeannette DENNY OUTPATIEN 1 1 DENISHA Suarez VISIT [facility] 15 MINUTES HOSPITAL JUN - 1 1 [facility] OUTPATIEN INC T EMERGENCY 33415 ALEX BRYANT CHUN DEPT 1 1 EMERGENCY VISIT SERVICES HIGH SEVERITY& THREAT [facility] JUN - 1 1 [facility] OUTPATIEN INC T EMERGENCY 80995 JUN 1 1 [facility] DEPARTMEN INC T VISIT HIGH/URGE NT SEVERITY OFFICE 82601 Jeannette DENNY CONSULTAT 1 1 DENISHA WAYNE MD [facility] NEW/ESTAB PATIENT 60 MIN OFFICE 70613 FAMILY LORIE OUTPATIEN 1 1 CARE R H T VISIT ASSOCIATE 15 S MINUTES OFFICE 61731 FAMILY OUTPATIEN 1 1 CARE T VISIT ASSOCIATE 15 S MINUTES OFFICE 83001 FAMILY MARCO A J OUTPATIEN 1 1 CARE T VISIT ASSOCIATE 15 S MINUTES HOSPITAL JUN - 1 1 [facility] OUTPATIEN INC T OFFICE 02254 FAMILY MARCO A J OUTPATIEN 1 1 CARE T VISIT ASSOCIATE 25 S MINUTES EMERGENCY 77299 ALEX BRYANT CHUN DEPT 0 0 EMERGENCY VISIT SERVICES HIGH SEVERITY& THREAT [facility] JUN - 0 0 [facility] OUTPATIEN INC T EMERGENCY 84500 JUN 0 0 [facility] DEPARTMEN INC T VISIT HIGH/URGE NT SEVERITY HOSPITAL JUN - 0 0 [facility] OUTPATIEN INC T EMERGENCY 21552 ALEX TIN 0 0 EMERGENCY [facility] DEPARTMEN SERVICES T VISIT HIGH/URGE NT SEVERITY HOSPITAL JUN - 0 0 [facility] OUTPATIEN INC T EMERGENCY 43112 JUN 0 0 [facility] DEPARTMEN INC T VISIT LOW/MODER SEVERITY OFFICE 87547 Ramin JAMESEN 0 0 CARE G T VISIT ASSOCIATE 15 S MINUTES OFFICE 03399 LIZETH UPPATIEN 0 0 CARE R OLGA T VISIT ASSOCIATE 25 S MINUTES HOSPITAL JUN - 9 9 [facility] OUTPATIEN INC T EMERGENCY 67986 JUN 9 9 [facility] DEPARTMEN INC T VISIT MODERATE SEVERITY EMERGENCY 57350 ALEX ROLDAN 9 9 EMERGENCY III, DEPARTMEN SERVICES SAM T VISIT HIGH/URGE ASSOCIATE NT S SEVERITY OFFICE 40504 Ramin JAMES 9 9 CARE G T VISIT ASSOCIATE 15 S MINUTES HOSPITAL JUN - 9 9 [facility] OUTPATIEN INC T OFFICE 11590 JENNI UPEN 9 9 CARE R OLGA T VISIT ASSOCIATE 15 S MINUTES EMERGENCY 33718 JUN 9 9 [facility] DEPARTMEN INC T VISIT LOW/MODER SEVERITY HOSPITAL JUN - 9 9 [facility] OUTPATIEN INC T EMERGENCY 69101 ALEX EMMANUEL, 9 9 EMERGENCY VIN DEPARTMEN SERVICES O T VISIT HIGH/URGE ASSOCIATE NT S SEVERITY OFFICE 36920 MARIO COOK 8 8 [facility] DANIE D T VISIT UROLOGY 15 PSC MINUTES OFFICE 22717 Ramin JAMES 8 8 CARE G T VISIT ASSOCIATE 15 S MINUTES OFFICE 81530 Ramin JAMES 8 8 CARE G T VISIT ASSOCIATE 15 S MINUTES OFFICE 18112 Ramin JAMES 8 8 CARE G T VISIT ASSOCIATE 15 S MINUTES OFFICE 08622 TIA ALFREDOPONCE CONSULTAT 8 8 MEDICAL , DARLING Tinajero ION SERV NEW/ESTAB FOUNDATIO PATIENT 80 MIN HOSPITAL JUN - 8 8 [facility] OUTPATIEN INC T EMERGENCY 68617 JADA TOLLIVER, DEPT 8 8 [facility] VISIT CORPORATI HIGH ON SEVERITY& THREAT [facility] JUN - 8 8 [facility] OUTPATIEN INC T EMERGENCY 78093 JUN 8 8 [facility] DEPARTMEN INC T VISIT HIGH/URGE NT SEVERITY OFFICE 83272 MARIO COOK 8 8 [facility] DANIE D T VISIT UROLOGY 15 PSC MINUTES OFFICE 14381 MARIO GAMBOA 8 8 [facility] T VISIT CLINIC 25 PSC MINUTES OFFICE 08524 Ramin JAMES 8 8 CARE G T VISIT ASSOCIATE 15 S MINUTES OFFICE 43052 MARIO UP 8 8 CARE R OLGA T VISIT ASSOCIATE 15 S MINUTES OFFICE 13620 MARIO COOK 8 8 [facility] DANIE D T VISIT UROLOGY 25 PSC MINUTES OFFICE 97525 Ramin JAMES 8 8 CARE G T VISIT ASSOCIATE 15 S MINUTES HOSPITAL JUN - 8 8 [facility] OUTPATIEN INC T OFFICE 91721 Ramin JAMES 8 8 CARE G T VISIT ASSOCIATE 25 S MINUTES OFFICE 01552 Ramin JAMES 8 8 CARE G T VISIT ASSOCIATE 15 S MINUTES HOSPITAL JUN - 8 8 [facility] OUTPATIEN INC T OFFICE 41728 Ramin JAMES OUTSHERRI 8 8 CARE G T VISIT ASSOCIATE 25 S MINUTES EMERGENCY 26920 JUN POPE DEPT 8 8 [facility] T VISIT HOSPITAL HIGH PROF SERV SEVERITY& THREAT FUNCJ EMERGENCY 90252 JUN 8 8 [facility] DEPARTMEN INC T VISIT HIGH/URGE NT SEVERITY HOSPITAL JUN - 8 8 [facility] OUTPATIEN INC T OFFICE 91769 ROBLES LI OUTPATIEN 8 8 MIKKI CRISTIN T VISIT CLINIC 15 PSC MINUTES OFFICE 81301 [facility] OUTPATIEN 8 8 LTH DANIE D T VISIT UROLOGY 15 PSC MINUTES OFFICE 32581 [facility] OUTPATIEN 8 8 LTH DANIE D T VISIT UROLOGY 15 PSC MINUTES OFFICE 60365 [facility], OUTPATIEN 8 8 LTH DANIE D T VISIT UROLOGY 15 PSC MINUTES EMERGENCY 70858 JUN 8 8 [facility] DEPARTMEN INC T VISIT LOW/MODER SEVERITY HOSPITAL JUN - 8 8 [facility] OUTPATIEN INC T OFFICE 00857 [facility] OUTPATIEN 8 8 LTH DANIE D T VISIT UROLOGY 15 PSC MINUTES OFFICE 78278 [facility] CAROL OUTPATIEN 8 8 LTH DANIE D T VISIT UROLOGY 15 PSC MINUTES OFFICE 45920 Ramin JAMES OUTPATIJOHANNY 8 8 CARE G T VISIT ASSOCIATE 15 S MINUTES
--- OUTSIDE RECORDS SUMMARY | 2016-12-15 06:16 | External Medical Summary Rpt ---
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 00 IN ti UT 10 6- 8- 00 00 IC ve YN 45 20 20 43 IN 60 17 17 47 PH 5 2 60 AR MA MG CY TA BL ET DI 51 08 09 90 30 00 CL Ac AZ 86 -0 -0 .0 00 IN ti EP 20 3- 1- 00 00 IC ve AM 06 20 20 43 5 31 17 17 75 PH 0 57 AR MG MA CY TA BL ET TR 00 07 08 45 10 00 [...] 60 0- 8- 00 00 IC ve TN 21 20 20 43 N 81 17 17 47 PH HC 0 58 AR L MA 50 CY 0 MG TA BL ET FU 00 07 08 60 30 00 CL Ac RO 37 -2 -1 .0 00 IN ti SE 80 0- 8- 00 00 IC ve TN 21 20 20 43 DE 61 17 [...] CY 20 MG CA PS UL E GA 69 07 08 30 30 00 CL Ac BA 09 -2 -1 .0 00 IN ti PE 70 2- 8- 00 00 IC ve NT 81 20 20 42 IN 41 17 17 65 PH 2 37 AR 30 MA 0 CY MG CA PS UL E LI 68 07 08 30 30 00 CL Ac SI 18 -2 -1 .0 00 IN ti NO 00 0- 8- 00 00 IC ve NH 51 20 20 43 IL 30 17 [...] G IN CHO LE R TR 00 07 08 45 7 00 CL Ac IA 60 -0 -0 .0 00 IN ti MC 37 7- 4- 00 00 IC ve IN 86 20 20 43 OL 27 17 17 61 PH ON 4 18 AR E MA 0. CY 1% CR EA M CE 65 07 08 20 10 00 CL Ac FD 86 -0 -0 .0 00 IN ti IN 20 7- 4- 00 00 IC ve IR 17 20 20 43 76 17 17 61 PH 30 0 19 AR 0 MA MG CY CA PS UL E FE 57 06 07 60 30 00 CL Ac RR 66 -2 -2 .0 00 IN ti OU 40 2- 1- 00 00 IC ve S 07 20 20 42 TURNER 11 17 17 42 PH LF 0 66 AR AT MA E CY 32 5 MG TA BL ET OM 60 06 07 60 30 00 CL Ac EP 50 -2 -2 .0 00 IN ti RA 50 2- 1- 00 00 IC ve ZO 06 20 20 42 LE 50 17 17 97 PH [address] MA CY 20 MG CA PS UL E FU 00 06 07 60 30 00 CL Ac RO 37 -2 -2 .0 00 IN ti SE 80 2- 1- 00 00 IC ve TN 21 20 20 43 DE 61 17 17 47 PH 0 57 AR 40 MA CY MG TA BL ET ME 53 06 07 60 30 00 CL Ac TF 74 -2 -2 .0 00 IN ti OR 60 2- 1- 00 00 IC ve TN 21 20 20 43 N 81 17 17 47 PH HC 0 58 AR L MA 50 CY 0 MG TA BL ET PO 00 06 07 30 30 00 CL Ac TA 78 -2 -2 .0 00 IN ti SS 15 2- 1- 00 00 IC ve IU 72 20 20 43 M 01 17 17 47 PH CL 0 59 AR MA ER CY 20 ME Q TA BL ET OX 00 06 07 60 30 00 CL Ac YB 83 -2 -2 .0 00 IN ti UT 20 2- 1- 00 00 IC ve YN 03 20 20 43 IN 81 17 17 47 PH 5 0 60 AR MA MG CY TA BL ET GA 67 06 07 30 30 00 CL Ac BA 87 -2 -2 .0 00 IN ti PE 70 2- 1- 00 00 IC ve NT 22 20 20 42 IN 30 17 17 65 PH 5 37 AR 30 MA 0 CY MG CA PS UL E SO 00 06 07 60 30 00 CL Ac TA 09 -2 -2 .0 00 IN ti LO 31 2- 1- 00 00 IC ve L 06 20 20 43 80 10 17 17 21 PH 1 62 AR MG MA CY TA BL ET XA 50 06 07 30 30 00 CL Ac RE 45 -2 -2 .0 00 IN ti LT 80 2- 1- 00 00 IC ve O 57 20 20 42 20 93 17 17 78 PH 0 87 AR MG MA CY TA BL ET CH 37 06 07 30 30 00 CL Ac IL 20 -2 -2 .0 00 IN ti D 50 2- 1- 00 00 IC ve 46 20 20 41 PI 76 17 17 56 PH RI 8 75 AR N MA 81 CY MG CH EW TA B LI 68 06 07 30 30 00 CL Ac SI 18 -2 -2 .0 00 IN ti NO 00 2- 1- 00 00 IC ve NH 51 20 20 42 IL 30 17 17 98 PH 5 3 30 AR MA MG CY TA BL ET VE 00 06 07 18 25 00 CL Ac NT 17 -2 -2 .0 00 IN ti OL 30 2- 1- 00 00 IC ve IN 68 20 20 43 22 17 17 20 PH HF 0 65 AR A MA 90 CY MC G IN CHO LE R BR 00 06 07 60 30 00 CL Ac EO 17 -2 -2 .0 00 IN ti 30 6- 1- 00 00 IC ve EL 85 20 20 43 LI 91 17 17 28 PH PT 0 44 AR A MA 10 CY 0- 25 MC G IN H DI 51 06 07 90 30 00 [...] MA 80 CY MG TA BL ET TR 00 06 07 [...] CY 0- 25 MC G IN H PO 62 05 06 30 30 00 CL Ac TA 03 -2 -2 .0 00 IN ti SS 70 5- 3- 00 00 IC ve IU 99 20 20 41 M 90 17 17 79 PH CL 5 20 AR MA ER CY 20 ME Q TA BL ET XA 50 05 06 30 30 00 [...] MC G IN CHO LE R DI 51 05 06 90 30 00 CL Ac AZ 86 -3 -2 .0 00 IN ti EP 20 0- 3- 00 00 IC ve AM 06 20 20 42 5 31 17 17 43 PH 0 05 AR MG MA CY TA BL ET GA 67 05 06 30 30 00 CL Ac BA 87 -3 -2 .0 00 IN ti PE 70 0- 3- 00 00 IC ve NT 22 20 20 42 IN 30 17 17 65 PH 5 37 AR 30 MA 0 CY MG CA PS UL E SO 00 05 06 60 30 00 CL Ac TA 09 -2 -2 .0 00 IN ti LO 31 6- 3- 00 00 IC ve L 06 20 20 43 80 10 17 17 21 PH 1 62 AR MG MA CY TA BL ET FE 57 05 06 60 30 00 CL Ac RR 66 -2 -2 .0 00 IN ti OU 40 5- 3- 00 00 IC ve S 07 20 20 42 TURNER 11 17 17 42 PH LF 0 66 AR AT MA E CY 32 5 MG TA BL ET OX 00 05 06 [...] 81 CY MG CH EW TA B LI 68 05 06 30 30 00 CL Ac SI 18 -2 -2 .0 00 IN ti NO 00 5- 3- 00 00 IC ve NH 51 20 20 42 IL 30 17 17 98 PH 5 3 30 AR MA MG CY TA BL ET FU 69 05 06 60 30 00 CL Ac RO 31 -2 -2 .0 00 IN ti SE 50 5- 3- 00 00 IC ve TN 11 20 20 41 DE 71 17 17 79 PH 0 17 AR 40 MA CY MG TA BL ET ME 53 05 06 60 30 00 CL Ac TF 74 -2 -2 .0 00 IN ti OR 60 5- 3- 00 00 IC ve TN 21 20 20 41 N 81 17 17 79 PH HC 0 18 AR L MA 50 CY 0 MG TA BL ET OM 60 05 06 60 30 00 CL Ac EP 50 -2 -2 .0 00 IN ti RA 50 5- 3- 00 00 IC ve ZO 06 20 20 42 LE 50 17 17 97 PH [address] MA CY 20 MG CA PS UL E PO 62 05 05 30 30 00 CL Ac TA 03 -0 -2 .0 00 IN ti SS 70 1- 6 00 IC ve IU 99 20 20 41 M 91 17 17 79 PH CL 0 20 AR MA ER CY 20 ME Q TA BL ET OX 00 05 05 60 30 00 CL Ac YB 83 -0 -2 .0 00 IN ti UT 20 1- 6 00 IC ve YN 03 20 20 41 IN 81 17 17 79 PH 5 0 11 AR MA MG CY TA BL ET VE 00 05 05 18 30 00 CL Ac NT 17 -0 -2 .0 00 IN ti OL 30 - 6 00 IC ve IN 68 20 20 42 22 17 17 09 PH HF 0 12 AR A MA 90 CY MC G IN CHO LE R SO 00 05 05 60 30 00 CL Ac TA 09 -0 -2 .0 00 IN ti LO 31 - 6 00 IC ve L 06 20 20 41 80 10 17 17 03 PH 1 92 AR MG MA CY TA BL ET FE 57 05 05 60 30 00 CL Ac RR 66 -0 -2 .0 00 IN ti OU 40 6 00 IC ve S 07 20 20 42 TURNER 11 17 17 42 PH LF 0 66 AR AT MA E CY 32 5 MG TA BL ET DI 51 05 05 90 30 00 CL Ac AZ 86 -0 -2 .0 00 IN ti EP 20 6 00 IC ve AM 06 20 20 42 5 31 17 17 43 PH 0 05 AR MG MA CY TA BL ET FU 69 05 05 60 30 00 CL Ac RO 31 -0 -2 .0 00 IN ti SE 50 1- 6- 00 IC ve TN 11 20 20 41 DE 71 17 17 79 PH 0 17 AR 40 MA CY MG TA BL ET ME 53 05 05 60 30 00 CL Ac TF 74 -0 -2 .0 00 IN ti OR 60 1- 6- 00 00 IC ve TN 21 20 20 41 N 81 17 17 79 PH HC 0 18 AR L MA 50 CY 0 MG TA BL ET GA 42 05 05 30 30 00 CL Ac BA 58 -0 -2 .0 00 IN ti PE 20 1- 6- 00 IC ve NT 11 20 20 [...] CY MG TA BL ET CH 37 05 05 30 30 00 CL Ac IL 20 -0 -2 .0 00 IN ti D 50 1- 6- 00 00 IC ve 46 20 20 41 PI 76 17 17 56 PH RI 8 75 AR N MA 81 CY MG CH EW TA B OM 60 05 05 60 30 00 [...] 00 1- 6- 00 00 IC ve NH 51 20 20 42 IL 30 17 17 98 PH 5 3 30 AR MA MG CY TA BL ET XA 50 04 05 30 30 00 CL Ac RE 45 -1 -0 .0 00 IN ti LT 80 2- 5- 00 00 IC ve O 57 20 20 42 20 93 17 17 78 PH 0 87 AR MG MA CY TA BL ET AZ 68 04 05 4. 4 00 CL Ac IT 18 -0 -0 00 00 IN ti HR 00 7- 5- 0 00 IC ve OM 16 20 20 42 YC 01 17 17 74 PH IN 3 27 AR MA 25 CY 0 MG TA BL ET GA 42 04 04 30 30 00 CL Ac BA 58 -0 -2 .0 00 IN ti PE 20 3- 8- 00 00 IC ve NT 11 20 20 42 IN 51 17 17 65 PH 8 37 AR 30 MA 0 CY MG CA PS UL E SO 00 04 04 60 30 00 [...] 5 MG TA BL ET DI 51 04 04 [...] 00 3- 8- 00 00 IC ve NH 51 20 20 40 IL 30 17 17 42 PH 5 3 68 AR MA MG CY TA BL ET ME 53 04 04 60 30 00 CL Ac TF 74 -0 -2 .0 00 IN ti OR 60 3- 8- 00 00 IC ve TN 21 20 20 41 N 81 17 17 79 PH HC 0 18 AR L MA 50 CY 0 MG TA BL ET FU 69 04 04 60 30 00 CL Ac RO 31 -0 -2 .0 00 IN ti SE 50 3- 8- 00 00 IC ve TN 11 20 20 41 DE 71 17 17 79 PH 0 17 AR 40 MA CY MG TA BL ET OX 00 04 04 60 30 00 CL Ac YB 83 -0 -2 .0 00 IN ti UT 20 3- 8- 00 00 IC ve YN 03 20 20 41 IN 81 17 17 79 PH 5 0 11 AR MA MG CY TA BL ET PO 62 04 04 30 30 00 CL Ac TA 03 -0 -2 .0 00 IN ti SS 70 3- 8- 00 00 IC ve IU 99 20 20 41 M 90 17 17 79 PH CL 5 20 AR MA ER CY 20 ME Q TA BL ET FE 57 03 03 60 30 00 CL Ac RR 66 -0 -3 .0 00 IN ti OU 40 6- 1- 00 00 IC ve S 07 20 20 42 TURNER 11 17 17 42 PH LF 0 66 AR AT MA E CY 32 5 MG TA BL ET AT 60 02 03 30 30 00 [...] MA CY TA BL ET DI 51 02 03 90 30 00 CL Ac AZ 86 -2 -2 .0 00 IN ti EP 20 8- 4- 00 00 IC ve AM 06 20 20 42 5 31 17 17 37 PH 0 68 AR MG MA CY TA BL ET TR 00 03 03 45 7 00 CL Ac IA 60 -0 -2 .0 00 IN ti MC 37 1- 4- 00 00 IC ve IN 86 20 20 42 OL 17 17 17 38 PH ON 4 58 AR E MA 0. CY 02 5% CR EA M SY 00 02 03 10 30 00 [...] 60 7- 4- 00 00 IC ve TN 21 20 20 41 N 81 17 17 79 PH HC 0 18 AR L MA 50 CY 0 MG TA BL ET FU 69 02 03 60 30 00 CL Ac RO 31 -2 -2 .0 00 IN ti SE 50 7- 4- 00 00 IC ve TN 11 20 20 41 DE 71 17 17 79 PH 0 17 AR 40 MA CY MG TA BL ET LI 68 02 03 30 30 00 CL Ac SI 18 -2 -2 .0 00 IN ti NO 00 7- 4- 00 00 IC ve NH 51 20 20 40 IL 30 17 17 42 PH 5 3 68 AR MA MG CY TA BL ET CH 37 02 [...] MG CA PS UL E VE 00 02 03 18 30 00 [...] CY 20 ME Q TA BL ET AT 60 01 02 30 30 00 CL Ac OR 50 -3 -2 .0 00 IN ti VA 52 0- 4- [address] 67 20 20 41 AT 10 17 17 04 PH IN 8 26 AR MA 80 CY MG TA BL ET GA 69 01 02 30 30 00 CL Ac BA 09 -3 -2 .0 00 IN ti PE 70 0- 4- 00 00 IC ve NT 81 20 20 41 IN 41 17 17 03 PH 2 40 AR 30 MA 0 CY MG CA PS UL E CL 13 01 02 30 30 00 CL Ac OP 66 -3 -2 .0 00 IN ti ID 80 0- 4- 00 00 IC ve OG 14 20 20 41 RE 10 17 17 04 PH L 5 27 AR 75 MA CY MG TA BL ET LI 68 01 02 30 30 00 CL Ac SI 18 -3 -2 .0 00 IN ti NO 00 0- 4- 00 00 IC ve NH 51 20 20 40 IL 30 17 17 42 PH 5 3 68 AR MA MG CY TA BL ET DI 51 01 02 90 30 00 [...] CY 20 MG CA PS UL E PO 00 01 02 30 30 00 CL Ac TA 78 -3 -2 .0 00 IN ti SS 15 0- 4- 00 00 IC ve IU 72 20 20 41 M 01 17 17 79 PH CL 0 20 AR MA ER CY 20 ME Q TA BL ET VE 00 01 02 18 25 00 CL Ac NT 17 -3 -2 .0 00 IN ti OL 30 0- 4- 00 00 IC ve IN 68 20 20 40 22 17 17 80 PH HF 0 22 AR A MA 90 CY MC G IN CHO LE R SY 00 01 02 10 30 00 CL Ac MB 18 -3 -2 .1 00 IN ti IC 60 0- 4- 99 00 IC ve OR 37 20 20 41 T 22 17 17 79 PH 80 0 19 AR -4 MA .5 CY MC G IN CHO LE R ME 53 01 02 60 30 00 CL Ac TF 74 -3 -2 .0 00 IN ti OR 60 0- 4- 00 00 IC ve TN 21 20 20 41 N 81 17 17 79 PH HC 0 18 AR L MA 50 CY 0 MG TA BL ET FU 69 01 02 60 30 00 CL Ac RO 31 -3 -2 .0 00 IN ti SE 50 0- 4- 00 00 IC ve TN 11 20 20 41 DE 71 17 [...] MA CY TA BL ET TR 00 02 02 45 7 00 CL Ac IA 60 -0 -2 .0 00 IN ti MC 37 1- 4- 00 00 IC ve IN 86 20 20 42 OL 17 17 17 09 PH ON 4 07 AR E MA 0. CY 02 5% CR EA M CH 37 01 02 30 30 00 CL Ac IL 20 -3 -2 .0 00 IN ti D 50 0- 4- 00 00 IC ve 46 20 20 41 PI 76 17 17 56 PH RI 8 75 AR N MA 81 CY MG CH EW TA B OX 00 01 02 60 30 00 [...] MG CH EW TA B GA 67 01 02 30 30 00 [...] CY MC G IN CHO LE R OX 00 01 02 60 30 00 CL Ac YB 83 -0 -0 .0 00 IN ti UT 20 3- 3- 00 00 IC ve YN 03 20 20 41 IN 81 17 17 79 PH 5 0 11 AR MA MG CY TA BL ET SO 00 01 02 60 30 00 CL Ac TA 09 -0 -0 .0 00 IN ti LO 31 3- 3- 00 00 IC ve L 06 20 20 41 80 10 17 17 03 PH 1 92 AR MG MA CY TA BL ET AT 60 01 02 30 30 00 CL Ac OR 50 -0 -0 .0 00 IN ti VA 52 3- 3- [address] 67 20 20 41 AT 10 17 17 04 PH IN 8 26 AR MA 80 CY MG TA BL ET FU 69 01 02 60 30 00 CL Ac RO 31 -0 -0 .0 00 IN ti SE 50 3- 3- 00 00 IC ve TN 11 20 20 41 DE 71 17 17 79 PH 0 17 AR 40 MA CY MG TA BL ET ME 53 01 02 60 30 00 CL Ac TF 74 -0 -0 .0 00 IN ti OR 60 3- 3- 00 00 IC ve TN 21 20 20 41 N 81 17 [...] CY 20 ME Q TA BL ET ON 00 12 01 6. 2 00 CL Ac DA 78 -2 -2 00 00 IN ti NS 15 2- 7- 0 00 IC ve ET 23 20 20 41 RO 86 16 17 71 PH N 4 29 AR OD MA T CY 4 MG TA BL ET LI 68 12 01 30 30 00 CL Ac SI 18 -2 -2 .0 00 IN ti NO 00 4- 7- 00 00 IC ve NH 51 20 20 40 IL 30 16 17 42 PH 5 3 68 AR MA MG CY TA BL ET DI 51 12 01 90 30 00 CL Ac AZ 86 -2 -2 .0 00 IN ti EP 20 4- 7- 00 00 IC ve AM 06 20 20 41 5 31 16 17 37 PH 0 72 AR MG MA CY TA BL ET CH 37 12 01 30 30 00 CL Ac IL 20 -0 -1 .0 00 IN ti D 50 8- 3- 00 00 IC ve 46 20 20 41 PI 76 16 17 56 PH RI 8 75 AR N MA 81 CY MG CH EW TA B OM 00 12 01 56 28 00 CL Ac EP 11 -0 -0 .0 00 IN ti RA 30 6- 9- 00 00 IC ve ZO 91 20 20 41 LE 53 16 17 03 PH [address] MA CY 20 MG TA BL ET VE 00 12 01 18 25 00 CL Ac NT 17 -0 -0 .0 00 IN ti OL 30 6- 9- 00 00 IC ve IN 68 20 20 40 22 16 17 80 PH HF 0 22 AR A MA 90 CY MC G IN CHO LE R SY 00 12 01 10 30 00 CL Ac MB 18 -0 -0 .1 00 IN ti IC 60 6- 9- 99 00 IC ve OR 37 20 20 40 T 22 16 17 56 PH 80 0 27 AR -4 MA .5 CY MC G IN CHO LE R ME 53 12 01 60 30 00 CL Ac TF 74 -0 -0 .0 00 IN ti OR 60 6- 9- 00 00 IC ve TN 21 20 20 40 N 81 16 17 56 PH HC 0 30 AR L MA 50 CY 0 MG TA BL ET OX 00 12 01 60 30 00 CL Ac YB 83 -0 -0 .0 00 IN ti UT 20 6- 9- 00 00 IC ve YN 03 20 20 40 IN 81 16 17 56 PH 5 0 28 AR MA MG CY TA BL ET SO 00 12 01 [...] 75 MA CY MG TA BL ET FU 69 12 01 30 30 00 CL Ac RO 31 -0 -0 .0 00 IN ti SE 50 6- 9- 00 00 IC ve TN 11 20 20 40 DE 71 16 17 56 PH 0 29 AR 40 MA CY MG TA BL ET GA 67 12 01 30 30 00 CL Ac BA 87 -0 -0 .0 00 IN ti PE 70 6- 9- 00 00 IC ve NT 22 20 20 41 IN 31 16 17 03 PH 0 40 AR 30 MA 0 CY MG CA PS UL E PO 00 12 01 30 30 00 CL Ac TA 78 -0 -0 .0 00 IN ti SS 15 6- 9- 00 00 IC ve IU 72 20 20 40 M 01 16 17 56 PH CL 0 32 AR MA ER CY 20 ME Q TA BL ET DI 00 10 10 0 90 30 [...] MG CY TA LL BL C ET NH 37 10 10 0 60 30 CL 24 CO Ac IL 00 -1 -1 .0 IN 74 OP ti OS 00 3- 3- 00 IC 16 ER ve EC 45 20 20 50 11 11 PH DUARTE OT 3 AR HN C MA G 20 CY .6 LL MG C TA BL ET VY 66 07 10 5 30 [...] -0 -1 .0 IN 17 OP ti NH 30 8- 2- 00 IC 72 ER [...] 1- 2- 00 IC 76 ER ve NH 07 20 20 IL 20 11 11 [...] CY MG LL TA C BL ET HY 00 04 10 2 [...] CY TA LL BL C ET 14 08 10 5 60 30 CL 24 CO Ac 55 -1 -1 .0 IN 35 OP ti 00 1- 2- 00 IC 94 ER ve 51 20 20 20 11 11 PH DUARTE 4 AR HN MA G CY LL C ME 68 06 09 5 60 30 [...] -0 -1 .0 IN 17 OP ti NH 30 8- 2- 00 IC 72 ER ve OL 73 20 20 OL 31 11 11 PH DUARTE 0 AR HN TA MA G RT CY RA TE LL C 50 MG TA B DI 00 08 09 1 90 30 [...] 1- 2- 00 IC 76 ER ve NH 07 20 20 IL 20 11 11 PH DUARTE 1 AR HN 2. MA G 5 CY MG LL TA C BL ET HY 00 04 09 2 [...] MG CY TA LL BL C ET VE 00 08 09 5 18 [...] AR HN MA G CY LL C NH 37 09 09 0 60 30 CL 24 CO Ac IL 00 -1 -1 .0 IN 54 OP ti OS 00 2- 2- 00 IC 46 ER ve EC 45 20 20 50 11 11 PH DUARTE OT 3 AR HN C MA G 20 CY .6 LL MG C TA BL ET DI 00 08 08 1 90 30 [...] 1- 1- 00 IC 76 ER ve NH 07 20 20 IL 20 11 11 [...] AR HN MA G CY LL C VE 51 04 08 4 30 30 [...] -0 -1 .0 IN 17 OP ti NH 30 8- 0- 00 IC 72 ER ve OL 73 20 20 OL 31 11 11 PH DUARTE 0 AR HN TA MA G RT CY RA TE LL C 50 MG TA B NH 37 02 08 5 60 30 CL [...] E LL 25 C MG TA B TR 65 07 07 0 15 5 CL 24 GA Ac AM 16 -0 -0 .0 IN 17 IN ti AD 20 8- 9- 00 IC 98 EY ve OL 62 20 20 71 11 11 PH TN HC 1 AR CH L MA AE 50 CY L S MG LL C TA BL ET ME 68 06 07 5 60 [...] -0 -0 .0 IN 17 OP ti NH 30 8- 8- 00 IC 72 ER [...] BL LL ET C PO 00 02 07 5 30 30 [...] 2- 8- 00 IC 13 ER ve NH 07 20 20 IL 20 11 11 [...] AR HN MA G CY LL C NH 37 02 07 5 60 30 CL 23 CO Ac IL 00 -1 -0 .0 IN 27 OP ti OS 00 5- 8- 00 IC 14 ER ve EC 45 20 20 50 11 11 PH UDARTE OT 3 AR HN C MA G [...] TA LL BL C ET 00 02 07 5 30 30 CL [...] LL G C IN CHO LE R NH 68 06 06 0 12 2 CL [...] MP LL C DS TA BL ET ME 00 12 06 5 30 30 CL 22 CO Ac TO 09 -0 -0 .0 IN 84 OP ti NH 30 9- 2- 00 IC 35 ER [...] IN CHO LE R PO 00 02 06 5 30 30 [...] 2- 2- 00 IC 13 ER ve NH 51 20 20 IL 20 11 11 [...] AR HN MA G CY LL C NH 37 02 06 5 60 30 CL [...] TA LL BL C ET DI 00 04 06 1 90 30 CL 23 CO Ac AZ 59 -2 -0 .0 IN 75 OP ti EP 15 9- 2- 00 IC 00 ER ve AM 61 20 20 5 91 11 11 PH DUARTE 0 AR HN MG MA G CY TA BL LL ET C DI 00 04 05 1 90 30 CL 23 CO Ac AZ 59 -2 -0 .0 IN 75 OP ti EP 15 9- 2- 00 IC 00 ER ve AM 61 20 20 5 91 11 11 PH DUARTE 0 AR HN MG MA G CY TA BL LL ET C LI 68 02 04 5 30 30 CL 23 CO Ac SI 18 -0 -2 .0 IN 18 OP ti NO 00 2- 8- 00 IC 13 ER ve NH 51 20 20 IL 20 11 11 [...] AR HN MA G CY LL C NH 37 02 04 5 60 30 CL [...] -0 -2 .0 IN 84 OP ti NH 30 9- 8- 00 IC 35 ER [...] TA LL BL C ET 00 02 04 5 30 30 CL [...] LL C ME Q TA BL ET HY 00 04 04 2 15 [...] MG CY TA LL BL C ET PO 62 02 03 5 30 30 [...] 2- 7- 00 IC 13 ER ve NH 51 20 20 IL 20 11 11 [...] -0 -1 .0 IN 84 OP ti NH 30 9- 7- 00 IC 35 ER [...] LL G C IN CHO LE R NH 37 02 02 5 60 30 CL 23 CO Ac IL 00 -1 -1 .0 IN 27 OP ti OS 00 5- 5- 00 IC 14 ER ve EC 45 20 20 50 11 11 PH DUARTE OT 3 AR HN C MA G 20 CY .6 LL MG C TA BL ET 14 02 02 4 60 30 CL 23 CO Ac 55 -1 -1 .0 IN 27 OP ti 00 5- 5- 00 IC 13 ER ve 51 20 20 20 11 11 PH DUARTE 4 AR HN MA G CY LL C DI 00 02 02 1 90 30 [...] 5% LL C CR EA M 00 10 02 4 30 30 CL 22 CO Ac 07 -0 -0 .0 IN 43 OP ti 80 4- 2- 00 IC 04 ER ve 42 20 20 01 10 11 PH DUARTE 5 AR HN MA G CY LL C ME 00 12 02 5 30 30 CL 22 CO Ac TO 09 -0 -0 .0 IN 84 OP ti NH 30 9- 2- 00 IC 35 ER [...] TA LL BL C ET 00 02 02 5 30 30 CL [...] 2- 2- 00 IC 13 ER ve NH 07 20 20 IL 20 11 11 PH DUARTE 1 AR HN 2. MA G 5 CY MG LL TA C BL ET DI 00 12 01 1 90 30 [...] Y TA LL BL C ET SL LI 00 08 01 5 30 30 CL 22 CO Ac SI 37 -0 -0 .0 IN 06 OP ti NO 82 2- 5- 00 IC 60 ER ve NH 07 20 20 IL 20 10 11 [...] G CY LL C ME 00 12 01 5 30 30 CL 22 CO Ac TO 09 -0 -0 .0 IN 84 OP ti NH 30 9- 5- 00 IC 35 ER [...] LL BL C ET ME 68 12 12 4 60 30 [...] BL LL ET C ME 00 09 12 3 60 30 CL 22 CO Ac TO 09 -0 -0 .0 IN 26 OP ti NH 30 3- 6- 00 IC 58 ER [...] AR HN MA G CY LL C LI 00 08 12 5 30 30 CL 22 CO Ac SI 37 -0 -0 .0 IN 06 OP ti NO 82 2- 6- 00 IC 60 ER ve NH 07 20 20 IL 20 10 10 [...] C IN CHO LE R ME 68 08 11 3 60 30 [...] 2- 5- 00 IC 60 ER ve NH 51 20 20 IL 20 10 10 [...] ME Q TA BL ET 00 08 11 5 30 30 CL [...] -0 -0 .0 IN 26 OP ti NH 30 3- 5- 00 IC 58 ER [...] TA LL BL C ET VY 66 06 10 5 30 [...] 2- 4- 00 IC 60 ER ve NH 07 20 20 IL 20 10 10 [...] -0 -0 .0 IN 26 OP ti NH 30 3- 4- 00 IC 58 ER [...] -0 -0 .0 IN 26 OP ti NH 30 3- 3- 00 IC 58 ER ve OL 73 20 20 OL 31 10 10 PH DUARTE 0 AR HN TA MA G RT CY RA TE LL C 50 MG TA B 00 02 09 5 30 30 CL [...] 2- 2- 00 IC 60 ER ve NH 07 20 20 IL 20 10 10 PH DUARTE 1 AR HN 2. MA G 5 CY MG LL TA C BL ET PO 62 08 09 5 30 30 [...] IN CHO LE R 00 08 08 0 12 3 CL 22 RU Ac 40 -1 -1 .0 IN 11 SH ti 60 0- 0- 00 IC 19 ve 35 20 20 NE 70 10 10 PH IL 5 AR C MA CY LL C ME 68 08 08 3 60 [...] 2- 2- 00 IC 60 ER ve NH 07 20 20 IL 20 10 10 [...] ME Q TA BL ET 37 08 08 5 30 30 CL [...] -3 -0 .0 IN 54 OP ti NH 30 0- 2- 00 IC 96 ER [...] CY TA BL LL ET C 00 08 08 0 30 30 CL [...] 1- 1- 00 IC 35 ER ve NH 75 20 20 IL 76 10 10 [...] -3 -0 .0 IN 54 OP ti NH 30 0- 1- 00 IC 96 ER [...] G CY TA BL LL ET C 37 01 06 5 30 30 CL [...] 1- 1- 00 IC 35 ER ve NH 75 20 20 IL 76 10 10 [...] -3 -0 .0 IN 54 OP ti NH 30 0- 1- 00 IC 96 ER ve OL 73 20 20 OL 31 10 10 PH DUARTE 0 AR HN TA MA G RT CY RA TE LL C 50 MG TA B VY 66 06 06 5 30 30 CL 21 CO Ac TO 58 -0 -0 .0 IN 73 OP ti RI 20 1- 1- 00 IC 39 ER ve N 31 20 20 10 33 10 10 PH DUARTE -4 1 AR HN 0 MA G MG CY TA LL BL C ET PO 00 01 06 5 30 30 CL 20 CO Ac TA 78 -1 -0 .0 IN 85 OP ti SS 15 1- 1- 00 IC 33 ER ve IU 72 20 20 M 01 10 10 PH DUARTE CL 0 AR HN MA G ER CY 20 LL C ME Q TA BL ET 00 01 06 5 30 30 CL 20 AD Ac 07 -1 -0 .0 IN 88 KI ti 80 5- 1- 00 IC 25 NS ve 42 20 20 01 10 10 PH TI 5 AR MO MA TH CY Y D LL C CL 00 05 05 2 30 10 CL 21 CO Ac OT 90 -0 -0 .0 IN 56 OP ti RI 47 3- 3- 00 IC 38 ER ve MA 82 20 20 ZO 23 10 10 PH DUARTE LE 1 AR HN MA G 1% CY CR LL EA C M ME 00 04 04 3 60 30 CL 21 CO Ac TO 09 -3 -3 .0 IN 54 OP ti NH 30 0- 0- 00 IC 96 ER ve OL 73 20 20 OL 31 10 10 PH DUARTE 0 AR HN TA MA G RT CY RA TE LL C 50 MG TA B DI 00 04 04 0 90 30 [...] TA LL BL C ET ME 68 03 04 3 60 30 [...] MA TH CY Y D LL C PO 62 01 04 5 30 30 [...] 1- 9- 00 IC 35 ER ve NH 07 20 20 IL 20 10 10 [...] LL G C IN CHO LE R CE 00 03 03 0 30 10 CL 21 NO Ac PH 09 -2 -2 .0 IN 33 RF ti AL 33 6- 6- 00 IC 97 LE ve EX 14 20 20 ET IN 70 10 10 PH R 1 AR 50 MA HE 0 CY NR MG Y LL CA C PS UL E NH 68 03 03 0 20 5 CL [...] MA HE CY NR Y LL C DI 00 02 03 1 90 30 CL 21 CO Ac AZ 59 -1 -2 .0 IN 06 OP ti EP 15 3- 6- 00 IC 80 ER ve AM 61 20 20 5 91 10 10 PH DUARTE 0 AR HN MG MA G CY TA BL LL ET C ME 68 03 03 3 60 30 [...] CY Y D LL C VY 66 10 03 5 [...] -0 -1 .0 IN 22 OP ti NH 30 7- 2- 00 IC 14 ER [...] 1- 2- 00 IC 35 ER ve NH 07 20 20 IL 20 10 10 [...] G C IN CHO LE R 00 01 02 01 30 30 CL 20 AD Ac 07 -1 -2 .0 IN 88 KI ti 80 5- 6- 00 IC 25 NS ve 42 20 20 01 10 10 PH TI 5 AR MO MA TH CY Y D PO 00 01 02 01 30 30 CL 20 CO Ac TA 78 -1 -2 .0 IN 85 OP ti SS 15 1- 6- 00 IC 33 ER ve IU 72 20 20 M 01 10 10 PH DUARTE CL 0 AR HN MA G ER CY 20 ME Q TA BL ET 37 01 02 01 30 30 CL [...] -0 -2 .0 IN 22 OP ti NH 30 7- 6- 00 IC 14 ER ve OL 73 20 20 OL 31 09 10 PH DUARTE 0 AR HN TA MA G RT CY RA TE 50 MG TA B LI 00 01 02 01 30 30 CL 20 CO Ac SI 37 -1 -2 .0 IN 85 OP ti NO 82 1- 6- 00 IC 35 ER ve NH 07 20 20 IL 20 10 10 [...] G IN CHO LE R DI 00 02 02 00 90 30 CL 21 CO Ac AZ 59 -1 -2 .0 IN 06 OP ti EP 15 3- 6- 00 IC 80 ER ve AM 61 20 20 5 91 10 10 PH DUARTE 0 AR HN MG MA G CY TA BL ET CI 00 02 02 00 15 30 CL 21 CO Ac TA 37 -0 -1 .0 IN 01 OP ti LO 86 4- 1- 00 IC 51 ER ve NH 23 20 20 AM 30 10 10 [...] CY 02 5% CR EA M LI 00 01 01 00 30 30 CL 20 CO Ac SI 37 -1 -2 .0 IN 85 OP ti NO 82 1- 8- 00 IC 35 ER ve NH 07 20 20 IL 20 10 10 PH DUARTE 1 AR HN 2. MA G 5 CY MG TA BL ET DI 00 11 01 02 90 30 CL 20 CO Ac AZ 59 -1 -2 .0 IN 46 OP ti EP 15 2- 8- 00 IC 27 ER ve AM 61 20 20 5 91 09 10 PH DUARTE 0 AR HN MG MA G CY TA BL ET VE 00 01 01 [...] Q TA BL ET VY 66 10 01 02 30 30 CL 20 CO Ac TO 58 -0 -2 .0 IN 22 OP ti RI 20 7- 8- 00 IC 13 ER ve N 31 20 20 10 33 09 10 PH DUARTE -4 1 AR HN 0 MA G MG CY TA BL ET ME 68 10 01 02 60 30 CL 20 CO Ac LO 18 -2 -2 .0 IN 35 OP ti XI 00 8 8- 00 IC 78 ER ve CA 50 20 20 M 10 09 10 PH DUARTE 7. 1 AR HN 5 MA G MG CY TA BL ET ME 00 10 01 02 30 30 CL 20 CO Ac TO 09 -0 -2 .0 IN 22 OP ti NH 30 7- 8- 00 IC 14 ER ve OL 73 20 20 OL 31 09 10 PH DUARTE 0 AR HN TA MA G RT CY RA TE 50 MG TA B 37 01 01 00 30 30 CL 20 CO Ac PI 20 -1 -2 .0 IN 85 OP ti RI 50 1- 8- 00 IC 34 ER ve N 42 20 20 EC 99 10 10 PH DUARTE 6 AR HN 32 MA G 5 CY MG TA BL ET 00 01 01 00 30 30 CL 20 AD Ac 07 -1 -2 .0 IN 88 KI ti 80 5- 8- 00 IC 25 NS ve 42 20 20 01 10 10 PH TI 5 AR MO MA TH CY Y D DI 00 11 12 01 90 30 CL 20 CO Ac AZ 59 -1 -3 .0 IN 46 OP ti EP 15 2- 1- 00 IC 27 ER ve AM 61 20 20 5 91 09 09 PH DUARTE 0 AR HN MG MA G CY TA BL ET ME 68 10 12 01 60 30 CL 20 CO Ac LO 18 -2 -1 .0 IN 35 OP ti XI 00 8- 7- 00 IC 78 ER ve CA 50 20 20 M 10 09 09 PH DUARTE 7. 1 AR HN 5 MA G MG CY TA BL ET NH 68 12 12 00 10 3 CL [...] MP M E DS TA BL ET PO 62 06 12 05 30 30 CL 19 CO Ac TA 03 -0 -1 .0 IN 52 OP ti SS 70 9- 7- 00 IC 60 ER ve IU 99 20 20 M 90 09 09 PH DUARTE CL 5 AR HN MA G ER CY 20 ME Q TA BL ET VY 66 10 12 [...] 9- 7- 00 IC 58 ER ve NH 07 20 20 IL 20 09 09 PH DUARTE 1 AR HN 2. MA G 5 CY MG TA BL ET ME 00 10 12 01 30 30 CL 20 CO Ac TO 09 -0 -1 .0 IN 22 OP ti NH 30 7- 7- 00 IC 14 ER ve OL 73 20 20 OL 31 09 09 PH DUARTE 0 AR HN TA MA G RT CY RA TE 50 MG TA B 37 06 12 05 30 30 CL 19 CO Ac PI 20 -0 -1 .0 IN 52 OP ti RI 50 9- 7- 00 IC 61 ER ve N 42 20 20 EC 99 09 09 PH DUARTE 6 AR HN 32 MA G 5 CY MG TA BL ET VE 00 06 12 [...] CY TA BL ET PO 00 06 11 04 30 30 CL 19 CO Ac TA 78 -0 -1 .0 IN 52 OP ti SS 15 9- 9- 00 IC 60 ER ve IU 72 20 20 M 01 09 09 PH DUARTE CL 0 AR HN MA G ER CY 20 ME Q TA BL ET ME 00 10 11 00 30 30 CL 20 CO Ac TO 09 -0 -1 .0 IN 22 OP ti NH 30 7- 9- 00 IC 14 ER ve OL 73 20 20 OL 31 09 09 PH DUARTE 0 AR HN TA MA G RT CY RA TE 50 MG TA B 37 06 11 04 30 30 CL 19 CO Ac PI 20 -0 -1 .0 IN 52 OP ti RI 50 9- 9 00 IC 61 ER ve N 42 20 20 EC 99 09 09 PH DUARTE 6 AR HN 32 MA G 5 CY MG TA BL ET VE 00 06 11 04 18 25 CL 19 CO Ac NT 17 -0 -1 .0 IN 52 OP ti OL 30 9 9- 00 IC 59 ER ve IN 68 20 20 22 09 09 PH DUARTE HF 0 AR HN A MA G 90 CY MC G IN CHO LE R LI 00 06 11 04 30 30 CL 19 CO Ac SI 37 -0 -1 .0 IN 52 OP ti NO 82 9- 9- 00 IC 58 ER ve NH 07 20 20 IL 20 09 09 PH DUARTE 1 AR HN 2. MA G 5 CY MG TA BL ET VY 66 10 11 00 30 30 CL 20 CO Ac TO 58 -0 -1 .0 IN 22 OP ti RI 20 7- 9- 00 IC 13 ER ve N 31 20 20 10 33 09 09 PH DAURTE -4 1 AR HN 0 MA G MG CY TA BL ET ME 68 10 [...] MG TA BL ET VE 00 06 10 03 18 25 CL 19 CO Ac NT 17 -0 -2 .0 IN 52 OP ti OL 30 9- 2- 00 IC 59 ER ve IN 68 20 20 22 09 09 PH DUARTE HF 0 AR HN A MA G 90 CY MC G IN CHO LE R PO 00 06 10 03 30 30 CL 19 CO Ac TA 78 -0 -2 .0 IN 52 OP ti SS 15 9- 2- 00 IC 60 ER ve IU 72 20 20 M 00 09 09 PH DUARTE CL 1 AR HN MA G ER CY 20 ME Q TA BL ET LI 68 06 10 03 30 30 CL 19 CO Ac SI 18 -0 -2 .0 IN 52 OP ti NO 00 9- 2- 00 IC 58 ER ve NH 51 20 20 IL 20 09 09 [...] CY TA BL ET VY 66 10 10 00 30 30 CL 20 CO Ac TO 58 -0 -2 .0 IN 20 OP ti RI 20 5- 2- 00 IC 40 ER ve N 31 20 20 10 33 09 09 PH DUARTE -4 1 AR HN 0 MA G MG CY TA BL ET ME 00 10 10 00 30 30 CL 20 CO Ac TO 37 -0 -2 .0 IN 20 OP ti NH 80 5- 2- 00 IC 39 ER ve OL 03 20 20 OL 20 09 09 PH DUARTE 1 AR HN TA MA G RT CY RA TE 50 MG TA B IN 00 09 09 00 21 7 CL 20 NO Ac DO 09 -1 -2 .0 IN 07 RF ti ME 34 5- 4- 00 IC 68 LE ve TH 02 20 20 ET AC 90 09 09 PH R IN 1 AR MA HE 25 CY NR Y MG CA PS UL E 68 09 09 00 25 8 CL [...] NR 0 Y MG TA BL ET ME 00 09 09 00 30 30 CL 19 CO Ac TO 37 -0 -1 .0 IN 99 OP ti NH 80 1- 0- 00 IC 48 ER ve OL 03 20 20 OL 20 09 09 PH DUARTE 1 AR HN TA MA G RT CY RA TE 50 MG TA B DI 00 07 09 01 90 30 [...] 9- 0- 00 IC 58 ER ve NH 51 20 20 IL 20 09 09 [...] MG CY TA BL ET 37 06 09 02 30 30 CL [...] -1 -3 .0 IN 59 OP ti NH 80 7- 0- 00 IC 66 ER ve OL 03 20 20 OL 20 09 09 PH DUARTE 1 AR HN TA MA G RT CY RA TE 50 MG TA B LI 68 06 07 01 30 30 CL 19 CO Ac SI 18 -0 -3 .0 IN 52 OP ti NO 00 9- 0- 00 IC 58 ER ve NH 51 20 20 IL 20 09 09 PH DUARTE 1 AR HN 2. MA G 5 CY MG TA BL ET 00 07 07 00 10 3 CL 19 SO Ac 60 -1 -3 .0 IN 73 KA ti 35 6- 0- 00 IC 11 N ve 46 20 20 BA 62 09 09 PH BA 1 AR TU MA ND CY E O NA 53 07 07 00 10 5 CL 19 SO Ac NH 74 -1 -3 .0 IN 73 KA [...] BA ZA 70 09 09 PH BA NH 6 AR TU IN MA ND E CY E 10 O MG TA BL ET DI 00 07 07 00 90 30 CL 19 CO Ac AZ 59 -1 -3 .0 IN 71 OP ti EP 15 4- 0- 00 IC 90 ER ve AM 61 20 20 5 91 09 09 PH DUARTE 0 AR HN MG MA G CY TA BL ET VE 00 06 06 00 18 25 CL 19 CO Ac NT 17 -0 -1 .0 IN 52 OP ti OL 30 9- 8- 00 IC 59 ER ve IN 68 20 20 22 09 09 PH DUARTE HF 0 AR HN A MA G 90 CY MC G IN CHO LE R LI 68 06 06 00 30 30 CL 19 CO Ac SI 18 -0 -1 .0 IN 52 OP ti NO 00 9- 8- 00 IC 58 ER ve NH 51 20 20 IL 20 09 09 PH DUARTE 1 AR HN 2. MA G 5 CY MG TA BL ET 37 06 06 00 30 30 CL [...] -1 -1 .0 IN 59 OP ti NH 80 7- 8- 00 IC 66 ER [...] G CY TA BL ET 37 11 05 05 30 30 CL 18 CO Ac PI 20 -1 -2 .0 IN 22 OP ti RI 50 9- 1- 00 IC 53 ER ve N 42 20 20 EC 99 08 09 PH DUARTE 6 AR HN 32 MA G 5 CY MG TA BL ET NI 00 05 05 00 14 7 CL 19 CHO Ac TR 37 -1 -2 .0 IN 35 MM ti OF 83 2- 1- 00 IC 77 ON ve UR 42 20 20 D AN 20 09 09 PH KA TO 1 AR TH IN MA AR CY IN MO E NO Y -M CR 10 0 MG 00 12 05 04 30 30 CL 18 AD Ac 07 -0 -2 .0 IN 30 KI ti 80 2- 1- 00 IC 51 NS ve 42 20 20 01 08 09 PH TI 5 AR MO MA TH CY Y D VE 00 11 05 05 18 25 CL 18 CO Ac NT 17 -1 -2 .0 IN 18 OP ti OL 30 3- 1- 00 IC 07 ER ve IN 68 20 20 22 08 09 PH DUARTE HF 0 AR HN A MA G 90 CY MC G IN CHO LE R VY 66 01 05 03 30 30 CL 18 CO Ac TO 58 -1 -2 .0 IN 59 OP ti RI 20 7- 1- 00 IC 68 ER ve N 31 20 20 10 33 09 09 PH DUARTE -4 1 AR HN 0 MA G MG CY TA BL ET DI 00 05 05 00 90 30 [...] -1 -2 .0 IN 59 OP ti NH 80 7- 1- 00 IC 66 ER ve OL 03 20 20 OL 20 09 09 PH DUARTE 1 AR HN TA MA G RT CY RA TE 50 MG TA B 00 11 05 05 30 30 CL 18 CO Ac 08 -1 -2 .0 IN 22 OP ti 51 9- 1- 00 IC 52 ER ve 71 20 20 80 08 09 PH DUARTE 2 AR HN MA G CY LI 68 12 05 04 30 30 CL 18 CO Ac SI 18 -2 -2 .0 IN 44 OP ti NO 00 3- 1- 00 IC 10 ER ve NH 51 20 20 IL 20 08 09 PH DUARTE 1 AR HN 2. MA G 5 CY MG TA BL ET DI 00 02 04 01 90 30 CL 18 CO Ac AZ 59 -1 -2 .0 IN 77 OP ti EP 15 7- 3- 00 IC 53 ER ve AM 61 20 20 5 91 09 09 PH DUARTE 0 AR HN MG MA G CY TA BL ET 00 12 04 03 30 30 CL 18 AD Ac 07 -0 -2 .0 IN 30 KI ti 80 2- 3- 00 IC 51 NS ve 42 20 20 01 08 09 PH TI 5 AR MO MA TH CY Y D VY 66 01 03 02 30 30 [...] 3- 6- 00 IC 10 ER ve NH 51 20 20 IL 20 08 09 PH DUARTE 1 AR HN 2. MA G 5 CY MG TA BL ET ME 00 01 03 02 30 30 CL 18 CO Ac TO 37 -1 -2 .0 IN 59 OP ti NH 80 7- 6- 00 IC 66 ER ve OL 03 20 20 OL 20 09 09 PH DUARTE 1 AR HN TA MA G RT CY RA TE 50 MG TA B 00 11 03 04 30 30 CL 18 CO Ac 08 -1 -2 .0 IN 22 OP ti 51 9- 6- 00 IC 52 ER ve 71 20 20 80 08 09 PH DUARTE 2 AR HN MA G CY VE 00 11 03 04 18 25 CL 18 CO Ac NT 17 -1 -2 .0 IN 18 OP ti OL 30 3- 6- 00 IC 07 ER ve IN 68 20 20 22 08 09 PH DUARTE HF 0 AR HN A MA G 90 CY MC G IN CHO LE R 37 11 03 04 30 30 CL 18 CO Ac PI 20 -1 -2 .0 IN 22 OP ti RI 50 9- 6- 00 IC 53 ER ve N 42 20 20 EC 99 08 09 PH DUARTE 6 AR HN 32 MA G 5 CY MG TA BL ET LI 68 12 02 02 30 30 CL 18 CO Ac SI 18 -2 -2 .0 IN 44 OP ti NO 00 3- 6- 00 IC 10 ER ve NH 51 20 20 IL 20 08 09 PH DUARTE 1 AR HN 2. MA G 5 CY MG TA BL ET VE 00 11 02 [...] MG CY TA BL ET DI 00 02 02 [...] -1 -2 .0 IN 59 OP ti NH 80 7- 6- 00 IC 66 ER ve OL 03 20 20 OL 20 09 09 PH DUARTE 1 AR HN TA MA G RT CY RA TE 50 MG TA B 37 11 02 03 30 30 CL 18 CO Ac PI 20 -1 -2 .0 IN 22 OP ti RI 50 9- 6- 00 IC 53 ER ve N 42 20 20 EC 99 08 09 PH DUARTE 6 AR HN 32 MA G 5 CY MG TA BL ET 00 11 02 03 30 30 CL 18 CO Ac 08 -1 -2 .0 IN 22 OP ti 51 9- 6- 00 IC 52 ER ve 71 20 20 80 08 09 PH DUARTE 2 AR HN MA G CY PO 51 01 02 01 52 31 CL 18 CO Ac LY 99 -1 -2 7. IN 59 OP ti ET 10 7- 6- 00 IC 67 ER ve HY 45 20 20 0 LE 75 09 09 PH DUARTE NE 7 AR HN MA G GL CY YC OL 33 50 PO WD 00 12 02 02 30 30 CL 18 AD Ac 07 -0 -2 .0 IN 30 KI ti 80 2- 6- 00 IC 51 NS ve 42 20 20 01 08 09 PH TI 5 AR MO MA TH CY Y D 00 12 01 01 30 30 CL 18 AD Ac 07 -0 -3 .0 IN 30 KI ti 80 2- 0- 00 IC 51 NS ve 42 20 20 01 08 09 PH TI 5 AR MO MA TH CY Y D VY 66 01 01 00 30 30 CL 18 CO Ac TO 58 -1 -3 .0 IN 59 OP ti RI 20 7- 0- 00 IC 68 ER ve N 31 20 20 10 33 09 09 PH DUARTE -4 1 AR HN 0 MA G MG CY TA BL ET 37 11 01 02 30 30 CL 18 CO Ac PI 20 -1 -3 .0 IN 22 OP ti RI 50 9- 0- 00 IC 53 ER ve N 42 20 20 EC 99 08 09 PH DUARTE 6 AR HN 32 MA G 5 CY MG TA BL ET ME 00 01 01 00 30 30 CL 18 CO Ac TO 37 -1 -3 .0 IN 59 OP ti NH 80 7- 0- 00 IC 66 ER [...] DUARTE 2 AR HN MA G CY VE 00 11 01 02 18 25 CL 18 CO Ac NT 17 -1 -3 .0 IN 18 OP ti OL 30 3- 0- 00 IC 07 ER ve IN 68 20 20 22 08 09 PH DUARTE HF 0 AR HN A MA G 90 CY MC G IN CHO LE R PO 51 01 01 00 52 31 CL 18 CO Ac LY 99 -1 -3 7. IN 59 OP ti ET 10 7- 0- 00 IC 67 ER ve HY 45 20 20 0 LE 75 09 09 PH DUARTE NE 7 AR HN MA G GL CY YC OL 33 50 PO WD DI 00 10 01 02 90 30 CL 18 CO Ac AZ 59 -2 -3 .0 IN 07 OP ti EP 15 9- 0- 00 IC 26 ER ve AM 61 20 20 5 91 08 09 PH DUARTE 0 AR HN MG MA G CY TA BL ET LI 68 12 01 01 30 30 CL 18 CO Ac SI 18 -2 -3 .0 IN 44 OP ti NO 00 3- 0- 00 IC 10 ER ve NH 51 20 20 [place] 20 08 09 PH DUARTE 1 AR HN 2. MA G 5 CY MG TA BL ET ME 00 07 01 05 30 30 CL 17 CO Ac TO 37 -2 -0 .0 IN 47 OP ti NH 80 1- 1- 00 IC 62 ER ve OL 03 20 20 OL 20 08 09 PH DUARTE 1 AR HN TA MA G RT CY RA TE 50 MG TA B VY 66 10 01 02 30 30 [...] E OL Y 33 50 PO WD 37 11 01 01 30 30 CL 18 CO Ac PI 20 -1 -0 .0 IN 22 OP ti RI 50 9- 1- 00 IC 53 ER ve N 42 20 20 EC 99 08 09 PH DUARTE 6 AR HN 32 MA G 5 CY MG TA BL ET LI 68 12 01 00 30 30 CL 18 CO Ac SI 18 -2 -0 .0 IN 44 OP ti NO 00 3- 1- 00 IC 10 ER ve NH 51 20 20 [place] 20 08 09 PH DUARTE 1 AR HN 2. MA G 5 CY MG TA BL ET VE 00 11 01 01 18 25 CL 18 CO Ac NT 17 -1 -0 .0 IN 18 OP ti OL 30 3- 1- 00 IC 07 ER ve IN 68 20 20 22 08 09 PH DUARTE HF 0 AR HN A MA G 90 CY MC G IN CHO LE R 00 11 01 01 30 30 CL [...] DUARTE 2 AR HN MA G CY TR 00 11 12 00 20 5 CL 18 CO Ac AM 37 -1 -0 .0 IN 22 OP ti AD 84 9- 4- 00 IC 73 ER ve OL 15 20 20 10 08 08 PH DUARTE HC 5 AR HN L MA G 50 CY MG TA BL ET 37 11 12 00 30 30 CL [...] -2 -0 .0 IN 47 OP ti NH 80 1- 4- 00 IC 62 ER ve OL 03 20 20 OL 20 08 08 PH DUARTE 1 AR HN TA MA G RT CY RA TE 50 MG TA B LI 68 06 12 05 30 30 CL 17 CO Ac SI 18 -2 -0 .0 IN 29 OP ti NO 00 3- 4- 00 IC 67 ER ve NH 51 20 20 IL 20 08 08 PH DUARTE 1 AR HN 2. MA G 5 CY MG TA BL ET OV 51 11 11 00 59 2 CL 18 CO Ac ID 67 -1 -2 .0 IN 18 OP ti E 25 3- 0- 00 IC 03 ER ve 0. 27 20 20 5% 60 08 08 PH DUARTE 4 AR HN LO MA G TI CY ON TR 00 11 11 00 45 10 CL 18 CO Ac IA 16 -1 -2 .0 IN 18 OP ti MC 80 3- 0- 00 IC 04 ER ve IN 00 20 20 OL 31 08 08 PH DUARTE ON 5 AR HN E MA G 0. CY 02 5% CR EA M VE 00 11 11 00 18 25 CL 18 CO Ac NT 17 -1 -2 .0 IN 18 OP ti OL 30 3- 0- 00 IC 07 ER ve IN 68 20 20 22 08 08 PH DUARTE HF 0 AR HN A MA G 90 CY MC G IN CHO LE R 68 11 11 00 25 30 CL 18 CO Ac 46 -0 -2 .0 IN 10 OP ti 20 3- 0- 00 IC 29 ER ve 14 20 20 64 08 08 PH DUARTE 5 AR HN MA G CY 37 11 11 00 30 30 CL [...] 3- 0- 00 IC 04 ER ve TN 21 20 20 DE 61 08 08 PH DUARTE 0 AR HN 40 MA G CY MG TA BL ET DO 00 11 11 00 30 30 [...] MA 2. CY 5) MG /3 ML ME 00 07 10 03 30 30 CL 17 No Ac TO 37 -2 -2 .0 IN 47 t ti NH 80 1- 3- 00 IC 62 Av ve OL 03 20 20 ai OL 20 08 08 PH la 1 AR bl TA MA e RT CY RA TE 50 MG TA B VY 66 10 10 00 30 30 [...] 1 AR bl MA e CY 00 07 10 02 30 30 CL [...] CY YC OL 33 50 PO WD TR 00 10 10 00 20 5 CL 17 No Ac AM 37 -1 -2 .0 IN 98 t ti AD 84 5- 3- 00 IC 93 Av ve OL 15 20 20 ai 10 08 08 PH la HC 5 AR bl L MA e 50 CY MG TA BL ET LI 68 06 10 04 30 30 CL 17 No Ac SI 18 -2 -2 .0 IN 29 t ti NO 00 3- 3- 00 IC 67 Av ve NH 51 20 20 ai [place] 20 08 08 PH la 1 AR bl 2. MA e 5 CY MG TA BL ET 00 09 10 00 41 9 CL [...] bl MA e CY ME 00 07 09 02 30 30 CL 17 No Ac TO 37 -2 -2 .0 IN 47 t ti NH 80 1- 6- 00 IC 62 Av ve OL 03 20 20 ai OL 21 08 08 PH la 0 AR bl TA MA e RT CY RA TE 50 MG TA B LI 68 06 09 03 30 30 CL 17 No Ac SI 18 -2 -2 .0 IN 29 t ti NO 00 3- 6- 00 IC 67 Av ve NH 51 20 20 ai IL 20 08 [...] 1 AR bl MA e CY 00 07 09 01 30 30 CL [...] MA e CY TA BL ET 00 08 09 01 30 30 CL [...] 3- 6- 00 IC 04 Av ve TN 21 20 20 ai DE 61 08 08 PH la 0 AR bl 40 MA e CY MG TA BL ET 00 08 08 00 30 30 CL 17 No Ac 07 -1 -2 .0 IN 63 t ti 80 8- 8- 00 IC 04 Av ve 41 20 20 ai 93 08 08 PH la 4 AR bl MA e CY 17 07 08 01 17 25 CL 17 No Ac 27 -2 -2 .0 IN 47 t ti 00 1- 8- 00 IC 63 Av ve 72 20 20 ai 10 08 08 PH la 1 AR bl MA e CY 00 08 08 00 30 30 CL 17 No Ac PI 60 -1 -2 .0 IN 61 t ti RI 30 5- 8- 00 IC 62 Av ve N 16 20 20 ai EC 92 08 08 PH la 1 AR bl 32 MA e 5 CY MG TA BL ET LI 68 06 08 02 30 30 CL 17 No Ac SI 18 -2 -2 .0 IN 29 t ti NO 00 3- 8- 00 IC 67 Av ve NH 51 20 20 ai [place] 20 08 08 PH la 1 AR bl 2. MA e 5 CY MG TA BL ET ME 00 07 08 01 30 30 CL 17 No Ac TO 37 -2 -2 .0 IN 47 t ti NH 80 1- 8- 00 IC 62 Av ve OL 03 20 20 ai OL 21 08 08 PH la 0 AR bl TA MA e RT CY RA TE 50 MG TA B DI 00 07 08 01 90 30 CL 17 No Ac AZ 59 -1 -2 .0 IN 41 t ti EP 15 0- 8- 00 IC 39 Av ve AM 61 20 20 ai 5 91 08 08 PH la 0 AR bl MG MA e CY TA BL ET DI 00 02 08 05 30 30 CL 16 No Ac OV 07 -0 -0 .0 IN 41 t ti AN 80 6- 1- 00 IC 97 Av ve 31 20 20 ai HC 43 08 08 PH la T 4 AR bl 80 MA e -1 CY 2. 5 MG TA BL ET 00 07 08 00 30 30 CL 17 No Ac 08 -2 -0 .0 IN 47 t ti 51 2- 1- 00 IC 94 Av ve 71 20 20 ai 80 08 08 PH la 1 AR bl MA e CY 00 02 08 03 30 30 CL 16 No Ac PI 60 -0 -0 .0 IN 41 t ti RI 30 6- 1- 00 IC 96 Av ve N 16 20 20 ai EC 92 08 08 PH la 1 AR bl 32 MA e 5 CY MG TA BL ET VY 66 02 08 05 30 30 [...] -H C EA R TURNER SP 00 01 08 05 30 30 CL 16 No Ac 07 -2 -0 .0 IN 31 t ti 80 2- 1- 00 IC 67 Av ve 41 20 20 ai 93 08 08 PH la 4 AR bl MA e CY LI 68 06 08 01 30 30 CL 17 No Ac SI 18 -2 -0 .0 IN 29 t ti NO 00 3- 1- 00 IC 67 Av ve NH 51 20 20 ai [place] 20 08 08 PH la 1 AR bl 2. MA e 5 CY MG TA BL ET ME 00 07 08 00 30 30 CL 17 No Ac TO 37 -2 -0 .0 IN 47 t ti NH 80 1- 1- 00 IC 62 Av ve OL 03 20 20 ai OL 21 08 08 PH la 0 AR bl TA MA e RT CY RA TE 50 MG TA B 17 07 08 00 17 25 CL 17 No Ac 27 -2 -0 .0 IN 47 t ti 00 1- 1- 00 IC 63 Av ve 72 20 20 ai 10 08 08 PH la 1 AR bl MA e CY IP 00 08 08 04 18 30 [...] TURNER SP DI 00 07 07 00 90 30 CL 17 No Ac AZ 59 -1 -1 .0 IN 41 t ti EP 15 0- 7- 00 IC 39 Av ve AM 61 20 20 ai 5 91 08 08 PH la 0 AR bl MG MA e CY TA BL ET DI 00 07 07 00 30 5 CL 17 No Ac CY 37 -1 -1 .0 IN 41 t ti CL 81 0- 7- 00 IC 38 Av ve OM 61 20 20 ai IN 00 08 08 PH la E 1 AR bl 10 MA e CY MG CA PS UL E DI 00 02 07 04 30 30 CL 16 No Ac OV 07 -0 -0 .0 IN 41 t ti AN 80 6- 3- 00 IC 97 Av ve 31 20 20 ai HC 43 08 08 PH la T 4 AR bl 80 MA e -1 CY 2. 5 MG TA BL ET 00 01 07 04 [...] bl MA e CY VY 66 02 07 04 30 30 CL 16 No Ac TO 58 -0 -0 .0 IN 41 t ti RI 20 6- 3- 00 IC 98 Av ve N 31 20 20 ai 10 33 08 08 PH la -4 1 AR bl 0 MA e MG CY TA BL ET ME 00 06 07 00 30 30 CL 17 No Ac TO 37 -1 -0 .0 IN 27 t ti NH 80 8- 3- 00 IC 55 Av ve OL 03 20 20 ai OL 21 08 08 PH la 0 AR bl TA MA e RT CY RA TE 50 MG TA B LI 68 06 07 00 30 30 CL 17 No Ac SI 18 -2 -0 .0 IN 29 t ti NO 00 3- 3- 00 IC 67 Av ve NH 51 20 20 ai IL 20 08 [...] MG CY TA BL ET 17 04 05 01 17 15 CL 16 No Ac 27 -0 -2 .0 IN 82 t ti 00 4- 2- 00 IC 47 Av ve 72 20 20 ai 10 08 08 PH la 1 AR bl MA e CY ME 00 04 05 01 30 30 CL 16 No Ac TO 37 -0 -2 .0 IN 82 t ti NH 80 4- 2- 00 IC 48 Av ve OL 03 20 20 ai OL 21 08 08 PH la 0 AR bl TA MA e RT CY RA TE 50 MG TA B DI 00 02 05 03 30 30 [...] 1 AR bl MA e CY 00 01 05 03 30 30 CL 16 No Ac 07 -2 -2 .0 IN 31 t ti 80 2- 2- 00 IC 67 Av ve 41 20 20 ai 93 08 08 PH la 4 AR bl MA e CY DI 57 04 04 00 30 30 [...] 5 CY MG TA BL ET 17 04 04 00 17 15 CL 16 No Ac 27 -0 -1 .0 IN 82 t ti 00 4- 0- 00 IC 47 Av ve 72 20 20 ai 10 08 08 PH la 1 AR bl MA e CY DI 00 04 04 00 90 30 [...] la 5 AR bl MA e CY 49 08 [...] -0 -1 .0 IN 82 t ti NH 80 4- 0- 00 IC 48 Av ve OL 03 20 20 ai OL 21 08 08 PH la 0 AR bl TA MA e RT CY RA TE 50 MG TA B 00 01 04 02 30 30 CL [...] TA BL ET 00 03 04 00 45 23 CL 16 No Ac 14 -0 -0 .0 IN 62 t ti 31 4- 7- 00 IC 05 Av ve 34 20 20 ai 80 08 08 PH la 5 AR bl MA e CY 17 09 04 05 17 15 CL 15 No Ac 27 -2 -0 .0 IN 59 t ti 00 5- 7- 00 IC 64 Av ve 72 20 20 ai 10 07 08 PH la 1 AR bl MA e CY ME 00 09 04 05 30 30 CL 15 No Ac TO 37 -2 -0 .0 IN 59 t ti NH 80 5- 7- 00 IC 65 Av ve OL 03 20 20 ai OL 21 07 08 PH la 0 AR bl TA MA e RT CY RA TE 50 MG TA B DI 00 03 04 00 90 30 CL 16 No Ac AZ 59 -0 -0 .0 IN 62 t ti EP 15 5- 7- 00 IC 69 Av ve AM 61 20 20 ai 5 91 08 08 PH la 0 AR bl MG MA e CY TA BL ET DI 00 02 04 01 30 30 CL 16 No Ac OV 07 -0 -0 .0 IN 41 t ti AN 80 6- 7- 00 IC 97 Av ve 31 20 20 ai HC 43 08 08 PH la T 4 AR bl 80 MA e -1 CY 2. 5 MG TA BL ET VY 66 02 04 01 30 30 CL 16 No Ac TO 58 -0 -0 .0 IN 41 t ti RI 20 6- 7- 00 IC 98 Av ve N 31 20 20 ai 10 33 08 08 PH la -4 1 AR bl 0 MA e MG CY TA BL ET 00 02 04 01 30 30 CL 16 No Ac PI 60 -0 -0 .0 IN 41 t ti RI 30 6- 7- 00 IC 96 Av ve N 16 20 20 ai EC 92 08 08 PH la 1 AR bl 32 MA e 5 CY MG TA BL ET 00 01 04 01 30 30 CL 16 No Ac 07 -2 -0 .0 IN 31 t ti 80 2- 7- 00 IC 67 Av ve 41 20 20 ai 93 08 08 PH la 4 AR bl MA e CY 17 09 03 04 17 15 CL 15 No Ac 27 -2 -2 .0 IN 59 t ti 00 5- 6- 00 IC 64 Av ve 72 20 20 ai 10 07 08 PH la 1 AR bl MA e CY VY 66 02 03 00 30 30 CL 16 No Ac TO 58 -0 -2 .0 IN 41 t ti RI 20 6- 6- 00 IC 98 Av ve N 31 20 20 ai 10 33 08 08 PH la -4 1 AR bl 0 MA e MG CY TA BL ET 00 02 03 00 30 30 CL 16 No Ac PI 60 -0 -2 .0 IN 41 t ti RI 30 6- 6- 00 IC 96 Av ve N 16 20 20 ai EC 92 08 08 PH la 1 AR bl 32 MA e 5 CY MG TA BL ET DI 00 10 03 03 90 30 CL 15 No Ac AZ 59 -2 -2 .0 IN 79 t ti EP 15 9- 6- 00 IC 75 Av ve AM 61 20 20 ai 5 91 07 08 PH la 0 AR bl MG MA e CY TA BL ET DO 00 02 03 00 30 30 [...] 5 MG TA BL ET ME 00 09 03 04 30 30 CL 15 No Ac TO 37 -2 -2 .0 IN 59 t ti NH 80 5- 6- 00 IC 65 Av [...] AT E 10 0 MG CA P FE 53 07 03 05 30 30 CL 15 No Ac LO 48 -1 -2 .0 IN 14 t ti DI 90 1- 4- 00 IC 34 Av ve PI 36 20 20 ai NE 90 07 08 PH la 1 AR bl ER MA e 5 CY MG TA BL ET DI 00 10 03 02 90 30 CL 15 No Ac AZ 59 -2 -2 .0 IN 79 t ti EP 15 9- 4- 00 IC 75 Av ve AM 61 20 20 ai 5 91 07 08 PH la 0 AR bl MG MA e CY TA BL ET 00 10 03 02 [...] -1 -2 .0 IN 14 t ti NH 80 1- 4- 00 IC 36 Av ve OL 04 20 20 ai OL 70 07 08 PH la 1 AR bl TA MA e RT CY RA TE 10 0 MG TA B 00 01 03 00 30 30 CL 16 No Ac 08 -0 -2 .0 IN 20 t ti 51 4- 4- 00 IC 97 Av ve 71 20 20 ai 80 08 08 PH la 1 AR bl MA e CY 17 09 03 03 17 15 CL [...] CY 0 MG TA BL ET 00 07 03 05 30 30 CL 15 No Ac PI 60 -1 -2 .0 IN 14 t ti RI 30 1- 4- 00 IC 32 Av ve N 16 20 20 ai EC 92 07 08 PH la 1 AR bl 32 MA e 5 CY MG TA BL ET VY 66 07 03 05 30 30 CL 15 No Ac TO 58 -1 -2 .0 IN 14 t ti RI 20 1- 4- 00 IC 35 Av ve N 31 20 20 ai 10 33 07 08 PH la -4 1 AR bl 0 MA e MG CY TA BL ET Procedures Procedure DOS Code Location Performer Comment O2 CONC 1 E1390 [facility] [place] 7 HOME HOME 85%/>02 MEDICAL MEDICAL CONC AT EQUIPME EQUIPME [facility] FLW RATE FLOW 21087 [place] [facility] CYTOMETRY 7 MEDICAL SERV INTERPRET FOUNDATIO ATION N 16/> MARKERS WBC 91179 [facility] ALKALINE 7 [facility] PHOSPHATA INC INC SE COUNT IMMUNOASS 41070 [facility] AY NFCT 7 [facility] AGT ANTB INC INC QUAL/SEMI ADELFO 1 STEP BLOOD 81809 [facility] COUNT [facility] COMPLETE INC INC AUTO&AUTO DIFRNTL WBC JAK2 GENE 25395 [facility] ANALYSIS 7 [facility] INC INC [id number] HE VARIANT COMPREHEN 62950 [facility] SIVE 7 [facility] METABOLIC INC INC PANEL NON-INVAS 36560 [place] [facility] EL[facility]IR[facility] 7 MEDICAL PHYSIOLOG IMAGING IC STUDY ASS EXTREMITY 3 LEVLS CYANOCOBA 52561 [facility] MIHAELA 7 [facility] VITAMIN INC INC B-12 BLOOD 88318 [facility] COUNT 7 [facility] COMPLETE INC INC AUTO&[place] [address] [facility] FOLIC 7 [facility] ACID INC INC SERUM O2 CONC 1 E1390 [facility] [place] 7 HOME HOME 85%/>02 MEDICAL MEDICAL CONC AT EQUIPME [facility]IBRA [facility] FLW RATE SEDIMENTA 34919 [facility] TION RATE 7 [facility] RBC INC INC NON-AUTOM ATED C-REACTIV 01834 [facility] E PROTEIN 7 [facility] INC INC RADEX 93864 [facility] ANKLE 7 MEDICAL COMPLETE IMAGING MINIMUM 3 ASS VIEWS RADEX 39181 [facility] FOOT 7 MEDICAL COMPLETE IMAGING MINIMUM 3 ASS VIEWS BASIC 18771 COMBINED COMBINED METABOLIC 7 PHYSICIAN PHYSICIAN [place] [address] COMBINED COMBINED THYROID 7 PHYSICIAN PHYSICIAN STIMULATI S LA S LA NG HORMONE TSH O2 CONC 1 E1390 [facility] [place] 7 HOME HOME 85%/>02 MEDICAL MEDICAL CONC AT EQUIPME EQUIPME [facility] FLW RATE O2 CONC 1 E1390 [facility] HARRELLRELL [place] 7 HOME HOME 85%/>02 MEDICAL MEDICAL CONC AT EQUIPME EQUIPVIBRA [facility] FLW RATE ECG 24299 [facility] JAMES ROUTINE 7 [facility] ECG MEDICAL W/LEAST G 12 LDS I&R ONLY NATRIURET 26805 [facility] IC [address] [place] [address] [place] [address] [facility] THYROID [address] [place] [address] STIMULATI NG HORMONE TSH INJECTION [id number] [facility] PROPOFOL [address] [place] [address] 10 MG UNCLASSIF [id number] [facility] IED DRUGS [address] [place] [address] [place] [id number] [facility] MAGNESIUM [address] [place] [address] HOSPITAL COMPREHEN [id number] METABOLIC PANEL ANES 38051 ANESTHESI KEYS INTEG SYS 7 A ELEC ASSOCIATE CONVERSIO S PSC N ARRHYTHMI CARDIOVER [address] ELECTIVE ARRHYTHMI A EXTERNAL ECG [address] ECG W/LEAST 12 LDS TRCG ONLY W/O I&R O2 CONC 1 E1390 CRISTINO GREGG [facility] 7 HOME HOME 85%/>02 MEDICAL MEDICAL CONC AT EQUIPME EQUIPME PRSC FLW RATE ECG 49602 [facility]OUT[facility] ECG MEDICAL W/LEAST G 12 LDS W/I&R ECG 70791 [facility] ROUTINE 7 [facility] ECG INC INC W/LEAST 12 LDS TRCG ONLY W/O I&R RADIOLOGI 50413 [place] OMAR C 7 MEDICAL EXAMINATI IMAGING ON CHEST ASS SINGLE VIEW FRONTAL AMB A0427 [facility] SERVICE 7 AMBULANCE AMBULANCE ALS SERVICE SERVICE EMERGENCY TRANSPORT LEVEL [address] [place] [address] [facility] AMYLASE 7 [facility] INC INC COMPREHEN 08125 J[facility] SIVE 7 [facility] METABOLIC INC INC PANEL GROUND A0425 [facility] MILEAGE 7 AMBULANCE AMBULANCE PER SERVICE SERVICE STATUTE MILE ECG 58511 [facility] RUGGIERO ROUTINE 7 [facility] W/LEAST P 12 LDS I&[place] [address] J[facility] THYROXINE 7 [facility] TOTAL INC INC THYROID 22906 [facility] HORM 7 [facility] UPTK/THYR INC [place] [address] [facility] TROPONIN 7 [facility] QUANTITAT INC INC ELVIRA NATRIURET 35310 [facility] IC 7 [facility] [place] [address] [facility] LIPASE 7 [facility] INC INC CREATINE 39999 J[facility] KINASE 7 [facility] TOTAL INC INC FIBRIN 85988 [facility] DGRADJ 7 [facility] PRODUCTS INC INC D-DIMER QUAL/SEMI ADELFO BLOOD 40251 [facility] COUNT 7 [facility] COMPLETE INC INC AUTO&AUTO DIFRNTL WBC CREATINE 53083 [facility] KINASE MB 7 [facility] FRACTION INC INC ONLY UNCLASSIF J3490 [facility] IED DRUGS 7 [place] [address] [facility] THYROID 7 [facility] STIMULATI INC INC NG HORMONE TSH ADLT SZD T4528 ACTIVSTYL ACTIVSTYL DISPBL 7 E E INCONT PROD UNDWEAR XTRA LG EA INCONTINE T4541 ACTIVSTYL ACTIVSTYL NCE 7 E E PRODUCT DISPOSABL E UNDPAD LARGE EA O2 CONC 1 E1390 CRISTINO GREGG [place] 7 HOME HOME 85%/>02 MEDICAL MEDICAL CONC AT EQUIPME [facility]QUIPV[facility]RA [facility] FLW RATE CYANOCOBA 80160 COMBINED COMBINED MIHAELA 7 PHYSICIAN PHYSICIAN VITAMIN S LA S LA B-12 IRON 46258 COMBINED COMBINED BINDING 7 PHYSICIAN [place] [address] COMBINED COMBINED IRON 7 PHYSICIAN PHYSICIAN S LA S LA COMPREHEN 05814 COMBINED COMBINED SIVE 7 PHYSICIAN PHYSICIAN METABOLIC S LA S LA PANEL O2 CONC 1 E1390 CRISTINO GREGG [place] 7 HOME HOME 85%/>02 MEDICAL MEDICAL CONC AT EQUIPME [facility] FLW RATE GROUND A0425 [facility] MILEAGE 7 AMBULANCE AMBULANCE PER SERVICE SERVICE STATUTE MILE AMB A0427 [facility] SERVICE 7 AMBULANCE AMBULANCE ALS SERVICE SERVICE [place] [address] ZUHAIR FREITAS ABDOMEN & 7 MEDICAL PELVIS IMAGING W/[place] [address] ZUHAIR LI ABDOMEN & 6 MEDICAL PELVIS IMAGING W/O ASS CONTRAST MATERIAL COMPREHEN 39815 [facility] SIVE 6 [facility] [place] [address] [facility] LIPASE 6 [facility] INC INC BLOOD 43667 [facility] COUNT 6 [facility] COMPLETE INC INC AUTO&AUTO DIFRNTL WBC IADNA-DNA 13355 [facility] /RNA GI 6 [facility] PTHGN INC INC MULTIPLEX PROBE TQ 02-28 O2 CONC 1 E1390 CRISTINO CRISTINO [place] 6 HOME HOME 85%/>02 MEDICAL MEDICAL CONC AT EQUIPME EQU[facility]ME [facility] FLW RATE ADLT SZD T4528 HOME DETENTION CARE DISPBL 6 INCONT DELIVERED DELIVERED PROD INC INC UNDWEAR XTRA LG EA O2 CONC 1 E1390 CRISTINO CRISTINO [place] 6 HOME HOME 85%/>02 MEDICAL MEDICAL CONC AT EQUIPME [facility] FLW RATE ADLT SZD T4528 HOME DETENTION CARE DISPBL 6 INCONT DELIVERED DELIVERED PROD INC INC UNDWEAR XTRA LG EA O2 CONC 1 E1390 CRISTINO CRISTINO [place] 6 HOME HOME 85%/>02 MEDICAL MEDICAL CONC AT EQUIPME EQU[facility]ME [facility] FLW RATE ADLT SZD T4528 HOME CARE RICE JAM DISPBL 6 INCONT DELIVERED PROD INC UNDWEAR XTRA LG EA O2 CONC 1 E1390 CRISTINO CECILIOBOBYY [place] 6 HOME PROSPER 85%/>02 MEDICAL CONC AT EQUIPME [facility] FLW RATE COMPREHEN 45570 COMBINED MCKEON SIVE 6 PHYSICIAN CASTRO METABOLIC S LA PANEL COLLECTIO 33825 FAMILY MARCO A N VENOUS 6 CARE [place] BLOOD ASSOCIATE VENIPUNCT S URE ADLT SZD T4528 HOME DETENTION CARE DISPBL 6 INCONT DELIVERED DELIVERED PROD INC INC UNDWEAR XTRA LG EA O2 CONC 1 E1390 CRISTINO GREGG [facility] 6 HOME HOME 85%/>02 MEDICAL MEDICAL CONC AT [facility]AL [facility] FLW RATE MYOCARDIA 13161 JUN Boudreaux SPECT 6 [facility] MULTIPLE INC INC STUDIES TECHNETIU A9500 JUN Fisher TC-99M 6 [facility] HOSP SESTAMIBI INC INC DX PER STUDY DOSE CV STRS 74994 JUN RODGERS JR TST 6 [facility] XERS&/OR HOSPITAL RX CONT P ECG I&R ONLY CV STRS 15422 JUN BARAHONA TST 6 [facility]P XERS&/OR INC INC RX CONT ECG TRCG ONLY CV STRS 32961 JUN ANA MARIA RAY TST 6 [facility] XERS&/OR HOSPITAL RX CONT P ECG W/O I&R WALKER E0143 CRISTINO GREGG [facility] [place] 6 HOME HOME WHEELED MEDICAL MEDICAL ADJUSTABL [facility] E/FIXED HEIGHT ADD LW L2275 PROGRESSI JAMAR EXTRM 6 VE MOUNA VARUS/VUL PODIATRY MAURISIO MALISSA PLSTC MOD PADD/LN AFO L1970 PROGRESSI JAMAR PLASTIC 6 VE MOUNA WITH PODIATRY ANKLE JOINT CUSTOM FABRICATE D ADLT SZD T4528 [facility]ARE DISPBL 6 INCONT DELIVERED DELIVERED PROD INC INC UNDWEAR XTRA LG EA ECG 04977 [facility] JAMES ROUTINE 6 [facility] ECG MEDICAL W/LEAST G 12 LDS W/I&R O2 CONC 1 E1390 CRISTINO GREGG [facility] 6 HOME HOME 85%/>02 MEDICAL MEDICAL CONC AT EQUIPME [facility] FLW RATE ADLT SZD T4528 HOME DETENTION CARE DISPBL 6 INCONT DELIVERED DELIVERED PROD INC INC UNDWEAR XTRA LG EA O2 CONC 1 E1390 CRISTINO GREGG [facility] 6 HOME HOME 85%/>02 [facility] [place] [address] [place] O[place] EXTREMITY 6 MEDICAL CHERELLE W/O IMAGING CONTRAST ASS MATERIAL ADLT SZD T4528 [facility]ARE DISPBL 6 INCONT DELIVERED DELIVERED PROD INC INC UNDWEAR XTRA LG EA BLOOD 79005 JUN BARAHONA COUNT 6 [facility] COMPLETE INC INC AUTO&AUTO DIFRNTL WBC HEPATITIS 46455 JUN BARAHONA C 6 [facility] ANTIBODY INC INC HEPATITIS 11550 JUN Lam CORE 6 [facility] ANTIBODY INC INC HBCAB TOTAL HEPATITIS 90555 JUN Lam SURF 6 [facility] ANTIBODY INC INC HBSAB HEPATITIS 24885 JUN BARAHONA A 6 [facility] [place] [address] JUN BARAHONA HEPATITIS 6 [facility] B INC INC SURFACE ANTIGEN COLLECTIO 57315 JUN BARAHONA N VENOUS 6 [facility] BLOOD INC INC VENIPUNCT URE INJECTION J3301 FALLIS JAMAR 6 TRIAMCINO LONE ACETONIDE NOS 10 MG HEMOGLOBI 50029 JUN BARAHONA N 6 [facility] GLYCOSYLA INC INC GARRETT A1C ARTHROCEN 66456 FALLIS JAMAR TESIS 6 ASPIR&/IN J INTERM JT/BURS W/O US BASIC 22487 JUN BARAHONA METABOLIC 6 [facility] PANEL INC INC CALCIUM TOTAL RADIOLOGI 24435 [place] FREITAS ALL C 6 MEDICAL EXAMINATI IMAGING ON ANKLE ASS 2 VIEWS ARTHROCEN 91634 FALLIS JAMAR TESIS 6 ASPIR&/IN J INTERM JT/BURS W/O US INJECTION J3301 FALLIS JAMAR 6 TRIAMCINO LONE ACETONIDE NOS 10 MG ADLT SZD T4528 [facility] DISPBL 6 INCONT DELIVERED DELIVERED [employer] INC INC UNDWEAR XTRA LG EA RADIOLOGI 44866 [place] FREITAS ALL C 6 MEDICAL EXAMINATI IMAGING ON FOOT 2 ASS VIEWS GROUND A0425 [facility] MILEAGE 6 AMBULANCE AMBULANCE [place] [address] [place] OMAR HEAD/BRAI 6 MEDICAL CHERELLE N W/O IMAGING CONTRAST ASS MATERIAL AMB A0427 [facility] SERVICE 6 AMBULANCE AMBULANCE ALS SERVICE SERVICE [place] [address] [facility] CERVICAL 6 MEDICAL SPINE W/O IMAGING CONTRAST ASS MATERIAL WALKING L4360 [facility] AD[facility]ANC[facility] BOOT 6 TECHNOLOG TECHNOLOG PNEUMATC IES INC IES INC &/ [place] [address] FAMILY MARCO A 6 CARE MARZENA METATARSA ASSOCIATE L S FRACTURE W/O MANIPULAT ION AMB A0427 [facility] SERVICE 6 AMBULANCE AMBULANCE ALS SERVICE SERVICE EMERGENCY TRANSPORT LEVEL 1 GROUND A0425 [facility] PER SERVICE SERVICE STATUTE MILE ECG 04522 [facility] JAMES ROUTINE 6 [facility] ECG MEDICAL W/LEAST G 12 LDS W/I&R RADIOLOGI 88126 [place] FREITAS ALL C 6 MEDICAL EXAMINATI IMAGING ON CHEST ASS SINGLE VIEW FRONTAL COMPREHEN 56017 COMBINED COMBINED SIVE 6 PHYSICIAN PHYSICIAN METABOLIC S LA S LA PANEL CYANOCOBA 27682 COMBINED COMBINED MIHAELA 6 PHYSICIAN PHYSICIAN VITAMIN S LA S LA B-12 ECG 46538 JUN RUGGIERO ROUTINE 6 [facility] W/LEAST P 12 LDS I&R ONLY ECG 97017 JUN BARAHONA ROUTINE 6 [facility] ECG INC INC W/LEAST 12 LDS TRCG ONLY W/O I&R RADEX HIP 96657 JUN BARAHONA 5 [facility] UNILATERA INC INC L COMPLETE MINIMUM 2 VIEWS RADEX 73156 JUN BARAHONA ANKLE 5 [facility] COMPLETE INC INC MINIMUM 3 VIEWS RADEX 50558 JUN BARAHONA SPINE 5 [facility] LUMBOSACR INC INC AL MINIMUM 4 VIEWS GROUND A0425 [facility]ULANCE PER SERVICE SERVICE STATUTE MILE AMBULANCE A0429 [facility] SERVICE 5 AMBULANCE AMBULANCE BLS SERVICE SERVICE EMERGENCY TRANSPORT BASIC 80279 JUN BARAHONA METABOLIC 5 [facility] PANEL INC INC CALCIUM TOTAL ECG 15241 JUN BARAHONA ROUTINE 5 [facility] ECG INC INC W/LEAST 12 LDS TRCG ONLY W/O I&R ECG 50319 JUN RUGGIERO ROUTINE 5 [facility] W/LEAST P 12 LDS I&[place] [address] JUN BARAHONA MAGNESIUM 5 [facility] HOSP INC INC COLLECTIO 96471 JUN BARAHONA N VENOUS 5 [facility] S[facility] BLOOD INC INC VENIPUNCT URE ECG 06724 [facility] ROUTINE 5 [facility] ECG MEDICAL W/LEAST G 12 LDS W/I&R HOSPITAL 20503 [facility] DISCHARGE 5 [facility] DAY MEDICAL MANAGEMEN G T 30 MIN/< ECG 44204 [facility] ROUTINE 5 [facility] ECG MEDICAL W/LEAST G 12 LDS I&R ONLY ECG 56292 [facility] ROUTINE 5 [facility] ECG MEDICAL W/LEAST G 12 LDS I&R ONLY SBSQ 71780 [facility] 5 [facility] CARE/DAY MEDICAL 25 G MINUTES ECG 88187 [facility] ROUTINE 5 [facility] ECG MEDICAL MEDICAL W/LEAST G G 12 LDS W/I&R RADEX 21106 [facility] ALL SPINE 5 MEDICAL LUMBOSACR IMAGING AL ASS MINIMUM 4 VIEWS RADEX 21417 [facility] ALL SPINE 5 MEDICAL THORACIC IMAGING 2 VIEWS ASS RADIOLOGI 17343 [place] FREITAS ALL C 5 MEDICAL EXAMINATI IMAGING ON PELVIS ASS 1/2 VIEWS RADEX 38692 [facility] ALL SHOULDER 5 MEDICAL COMPLETE IMAGING MINIMUM [address] LOWER 13428 JUN BARAHONA EXTREMITY 5 [facility] W/O INC INC CONTRAST MATERIAL INJECTION J2785 JUN BARAHONA 5 [facility]OSP REGADENOS INC INC ON 0.1 MG CV STRS 38597 JUN BARAHONA TST 5 [facility]OSP XERS&/OR INC INC RX CONT ECG TRCG ONLY CV STRS 42171 JUN RUGGIERO TST 5 [facility] RX CONT P ECG I&R ONLY TECHNETIU A9500 JUN Fisher TC-99M 5 [facility] HOSP SESTAMIBI INC INC DX PER STUDY DOSE MYOCARDIA 14281 [facility] L SPECT 5 MEDICAL CHERELLE MULTIPLE IMAGING STUDIES ASS XTRNL ECG 57107 JUN RUGGIERO 5 [facility] S RHYTHM P W/I&R UP TO 48 HRS EXTERNAL 63293 JUN BARAHONA ECG 5 [facility]OSP SCANNING INC INC ANALYSIS REPORT XTRNL ECG 91078 JUN BARAHONA & 48 HR 5 [facility]OS[facility] RECORDING INC INC COMPREHEN 83622 COMBINED COMBINED SIVE 5 PHYSICIAN PHYSICIAN METABOLIC S LA S LA PANEL ECG 68372 JUN BARAHONA ROUTINE 5 [facility]OS[facility] ECG INC INC W/LEAST 12 LDS TRCG ONLY W/O I&R ECG 80427 JUN RODGERS JR ROUTINE 5 [facility] W/LEAST P 12 LDS I&R ONLY HEMOGLOBI 99885 FAMILY MARCO A N 5 CARE [facility] GLYCOSYLA ASSOCIATE GARRETT A1C S COLLECTIO 01392 FAMILY MARCO A N VENOUS 5 CARE [facility] BLOOD ASSOCIATE VENIPUNCT S URE BASIC 15603 COMBINED COMBINED METABOLIC 5 PHYSICIAN PHYSICIAN PANEL S LA S LA CALCIUM TOTAL ECG 95253 JUN BARAHONA ROUTINE 5 [facility]OS[facility] ECG INC INC W/LEAST 12 LDS TRCG ONLY W/O I&R RADIOLOGI 24650 [place] OMAR C EXAM 5 MEDICAL CHERELLE CHEST 2 IMAGING VIEWS ASS FRONTAL&L ATERAL ECG 34274 JUN RUGGIERO ROUTINE 5 [facility] W/LEAST P 12 LDS I&R ONLY GROUND A0425 [facility]ULANCE AMBULANCE PER SERVICE SERVICE STATUTE [place] AMBULANCE A0429 [facility] SERV[facility] 5 AMBULANCE AMBULANCE BLS SERVICE SERVICE [facility]ER[facility]SPORT [facility] 65205 [facility] CLARISSA DISCHARGE 4 [facility] KATY DAY MEDICAL MANAGEMEN G T 30 MIN/< DUPLEX 12787 [facility] CLARISSA SCAN 4 [facility] KATY EXTRACRAN MEDICAL IAL ART G COMPL BI STUDY DUP-SCAN 83289 DIANNE BRIGGS THO XTR VEINS 4 NE [facility] COMPLETE MEDICAL G BILATERAL STUDY CATH PLMT 40262 DIANNE WANG L HRT & 4 NE [facility] NAFISA ARTS MEDICAL W/NJX & G ANGIO IMG S&I PRQ 43358 DIANNE WANG TRLUML 4 NE [facility] NAFISA CORONARY MEDICAL ANGIOPLAS G TY ONE ART/BRANC H ECG 28331 DIANNE BRIGGS THO ROUTINE 4 NE [facility] ECG MEDICAL W/LEAST G 12 LDS I&R ONLY ECHO 56804 DIANNE ROMO TTHRC R-T 4 NE [facility] KATY 2D MEDICAL W/WOM-MOD G E COMPL SPEC&COLR D PROCEDURE 0040 [facility] ON [address] [place] [address] SINGLE VESSEL PERQ 0066 [facility] TRANSLUMI [address] [place] [address] NAL CORONARY ANGIOPLAS TY PTCA ANGIOCARD 8853 [facility] IOGRAPHY [address] [place] [address] [facility] OF LEFT HEART STRUCTURE S LEFT [address] CARDIAC CATHETERI ZATION CORONARY 8856 [facility] ARTERIOGR [address] [place] [address] APHY USING TWO CATHETERS INITIAL [address] LIS CARE/DAY MEDICAL 70 G MINUTES AMBULANCE A0429 [facility] SERVICE 4 AMBULANCE AMBULANCE BLS SERVICE SERVICE EMERGENCY TRANSPORT GROUND A0425 [facility]ANCE AMBUL[facility] [place] [address] ZUHAIR BEINEKE CERVICAL 4 MEDICAL PARKER SPINE W/O IMAGING CONTRAST ASS MATERIAL AMB A0427 [facility] SERVICE 4 AMBULANCE AMBULANCE ALS SERVICE SERVICE [place] [address] ZUHAIR BEINEKE ABDOMEN & 4 MEDICAL PARKER PELVIS IMAGING W/[place] [address] ZUHAIR BEINEKE HEAD/BRAI 4 MEDICAL PARKER N W/O IMAGING CONTRAST ASS MATERIAL RADIOLOGI 59248 [facility] OMAR C EXAM 4 MEDICAL CHERELLE CHEST 2 IMAGING VIEWS ASS FRONTAL&L ATERAL ECG 01992 [facility] CHESTER THO ROUTINE 4 [facility] ECG MEDICAL W/LEAST G 12 LDS I&R ONLY CT LUMBAR 39691 ZUHAIR CARTERINEKE SPINE 4 MEDICAL PARKER W/[place] [address] ZUHAIR LI HEAD/BRAI 4 MEDICAL PARKER N W/O IMAGING CONTRAST ASS MATERIAL AMB A0427 [facility] SERVICE 4 AMBULANCE AMBULANCE ALS SERVICE SERVICE [place] [address] ZUHAIR LI CERVICAL 4 MEDICAL PARKER SPINE W/O IMAGING CONTRAST ASS MATERIAL GROUND A0425 [facility] MILEAGE 4 AMBULANCE AMBULANCE PER SERVICE SERVICE STATUTE MILE GROUND A0425 [facility] MILEAGE 4 AMBULANCE AMBULANCE PER SERVICE SERVICE STATUTE MILE AMB A0427 [facility] SERVICE 4 AMBULANCE AMBULANCE ALS SERVICE SERVICE [place] [address] ZUHAIR CHATMANUTCHER HEAD/BRAI 4 MEDICAL CHERELLE N W/O IMAGING CONTRAST ASS MATERIAL RADIOLOGI 93210 ZUHAIR OMAR C 4 MEDICAL CHERELLE EXAMINATI IMAGING ON CHEST ASS SINGLE VIEW FRONTAL RADIOLOGI 41814 ZUHAIR OMAR C EXAM 4 MEDICAL CHERELLE CHEST 2 IMAGING VIEWS ASS FRONTAL&L ATERAL O2 CONC 1 E1390 CRISTINO CRISTINO [place] 4 HOME HOME 85%/>02 MEDICAL MEDICAL CONC AT EQUIPME EQUIPME PRSC FLW RATE O2 CONC 1 E1390 CRISTINO CRISTINO [place] 4 HOME HOME 85%/>02 MEDICAL MEDICAL CONC AT EQUIPME EQUIPAL PRS FLW RATE RADIOLOGI 90533 ZUHAIR OMAR C 4 MEDICAL CHERELLE EXAMINATI IMAGING ON KNEE 3 ASS VIEWS KNEE L1830 BREG INC. BREG INC. ORTHOSIS 4 IMMOBLIZE R CANVAS LONGTUDNL PREFAB RADIOLOGI 07669 ZUHAIR OMAR C 4 MEDICAL CHERELLE EXAMINATI IMAGING ON PELVIS ASS 1/2 VIEWS RADEX HIP 60266 ZUHAIR OMAR 4 MEDICAL CHERELLE UNILATERA IMAGING L ASS COMPLETE MINIMUM 2 VIEWS GROUND A0425 [facility] MILEAGE 4 AMBULANCE AMBULANCE PER SERVICE SERVICE STATUTE MILE AMBULANCE A0429 [facility] SERVICE 4 AMBULANCE AMBULANCE BLS SERVICE SERVICE EMERGENCY TRANSPORT BLOOD 17955 FAMILY FAMILY COUNT 4 CARE CARE COMPLETE ASSOCIATE ASSOCIATE AUTO&AUTO S S DIFRNTL WBC O2 CONC 1 E1390 CRISTINO CRISTINO [place] 4 HOME HOME 85%/>02 MEDICAL MEDICAL CONC AT EQUIPME EQUIPME [facility] [place] [address] ZUHAIR OMAR HEAD/BRAI 4 MEDICAL CHERELLE N W/O IMAGING CONTRAST ASS MATERIAL O2 CONC 1 E1390 CRISTINO GREGG [place] 4 HOME HOME 85%/>02 MEDICAL MEDICAL CONC AT EQUIPME EQUIPME [facility] FLW RATE O2 CONC 1 E1390 CRISTINO GREGG [place] 4 HOME HOME 85%/>02 MEDICAL MEDICAL CONC AT EQUIPME EQUIPME [facility] FLW RATE AMBULANCE A0429 [facility] SERVICE 4 AMBULANCE AMBULANCE BLS SERVICE SERVICE EMERGENCY TRANSPORT GROUND A0425 [facility] MILEAGE 4 AMBULANCE AMBULANCE PER SERVICE SERVICE STATUTE [place] O2 CONC 1 E1390 CRISTINO CRISTINO [place] 4 HOME HOME 85%/>02 MEDICAL MEDICAL CONC AT EQUIPME EQUIPME [facility] FLW RATE GROUND A0425 [facility] MILEAGE 4 AMBULANCE AMBULANCE PER SERVICE SERVICE STATUTE MILE AMBULANCE A0429 [facility] SERVICE 4 AMBULANCE AMBULANCE BLS SERVICE SERVICE EMERGENCY TRANSPORT PRTBLE E0431 MEY MATHIAS GASEOUS 4 HOSP HOSP O2 SYS EQUIP EQUIP RENT; FLWMTR HUMIDFR&M ASK AMBULANCE A0429 [facility] 4 AMBULANCE AMBULANCE BLS SERVICE SERVICE EMERGENCY TRANSPORT GROUND A0425 [facility] MILEAGE 4 AMBULANCE AMBULANCE [place] [address] OMAR OMAR HEAD/BRAI 4 CHERELLE CHERELLE N W/O CONTRAST MATERIAL O2 CONC 1 E1390 [facility]Y MATHIAS [place] [facility] HOSP HOSP 85%/>02 EQUIP EQUIP CONC AT [facility] FLW RATE PRTBLE E0431 MEY MATHIAS GASEOUS 4 HOSP HOSP O2 SYS EQUIP EQUIP RENT; FLWMTR HUMIDFR&M ASK O2 CONC 1 E1390 [facility] [place]ATH[facility] [place] [facility] HOSP HOSP 85%/>02 EQUIP EQUIP CONC AT PRS FLW RATE GROUND A0425 [facility] MILEAGE 4 AMBULANCE AMBULANCE PER SERVICE SERVICE STATUTE MILE AMBULANCE A0429 [facility] SERVICE 4 AMBULANCE AMBULANCE BLS SERVICE SERVICE EMERGENCY TRANSPORT RADIOLOGI 40716 OMAR OMAR C 4 CHERELLE CHERELLE EXAMINATI ON CHEST SINGLE VIEW FRONTAL PRTBLE E0431 WEIIRA WEIIRA GASEOUS 3 HOSP HOSP O2 SYS EQUIP EQUIP RENT; FLWMTR HUMIDFR&M ASK O2 CONC 1 E1390 [facility] [place]ATH[facility]AS [place] [facility] HOSP 85%/>02 EQUIP EQUIP CONC AT [facility] FLW RATE PRTBLE E0431 WEIIRA WEIIRA GASEOUS 3 HOSP HOSP O2 SYS EQUIP EQUIP RENT; FLWMTR HUMIDFR&M ASK O2 CONC 1 E1390 [facility]RA [facility] [place] [facility]OSP HOSP 85%/>02 EQUIP EQUIP CONC AT PRS FLW RATE PRTBLE E0431 WEIIRA MATHIAS GASEOUS 3 HOSP HOSP O2 SYS EQUIP EQUIP RENT; FLWMTR HUMIDFR&M ASK O2 CONC 1 E1390 [facility]RA [facility] [place] [facility]OSP HOSP 85%/>02 EQUIP EQUIP CONC AT PRS FLW RATE PRTBLE E0431 WEIIRA WEIIRA GASEOUS 3 HOSP HOSP O2 SYS EQUIP EQUIP RENT; FLWMTR HUMIDFR&M ASK O2 CONC 1 E1390 WEIIRA MEY [place] [facility]OSP HOSP 85%/>02 EQUIP EQUIP CONC AT PRS [place]W R[place] ECHO 05214 JUN BAR[facility] 2D INC INC W/WOM-MOD E COMPL SPEC&COLR D INJECTION J2785 JUN BARAHONA 3 [facility] REGADENOS INC INC ON 0.1 MG MYOCARDIA 93665 OMAR OMAR L SPECT 3 CHERELLE CHERELLE SINGLE STUDY AT REST OR STRESS CV STRS 27335 JUN BARAHONA TST 3 [facility] XERS&/OR INC INC RX CONT ECG TRCG ONLY CV STRS 59478 ANA MARIA RODGERS JR TST 3 DWI DWI XERS&/OR RX CONT ECG I&R ONLY TECHNETIU A9500 JUN BARAHONA M TC-99M 3 [facility] SESTAMIBI INC INC DX PER STUDY DOSE PRTBLE E0431 MEY MATHIAS GASEOUS 3 HOSP HOSP O2 SYS EQUIP EQUIP RENT; FLWMTR HUMIDFR&[place] [address] OMAR OMAR HEAD/BRAI 3 CHERELLE CHERELLE N W/O CONTRAST MATERIAL O2 CONC 1 E1390 [facility]Y MATHIAS [place] [facility] HOSP 85%/>02 EQUIP EQUIP CONC AT PRSC [place]W R[place] RADEX 02873 JUN BARAHONA SPINE 3 MEM [facility] MEM HOSP LUMBOSACR INC INC AL MINIMUM 4 VIEWS RADEX 21139 OMAR OMAR SPINE 3 CHERELLE CHERELLE LUMBOSACR AL 2/3 VIEWS RADEX 10796 OMAR OMAR SPINE 3 CHERELLE CHERELLE CERVICAL 2 OR 3 VIEWS RADEX 49312 JUN BARAHONA SPINE 3 [facility] THORACIC INC INC 3 VIEWS RADIOLOGI 49995 JUN BARAHONA C 3 [facility] EXAMINATI INC INC ON PELVIS 1/2 VIEWS RADEX 16366 JUN ROBERTSON SPINE 3 [facility] CERVICAL INC INC 4 OR 5 VIEWS THERAPEUT 61156 JUN BARAHONA IC 3 [facility] PROPHYLAC INC INC TIC/DX INJECTION SUBQ/IM PRTBLE E0431 MEY MATHIAS GASEOUS 3 HOSP HOSP O2 SYS EQUIP EQUIP RENT; FLWMTR HUMIDFR&M ASK O2 CONC 1 E1390 [facility] [place] [facility] HOSP 85%/>02 EQUIP EQUIP CONC AT PRSC FLW RATE PRTBLE E0431 MEY MATHIAS GASEOUS 3 HOSP HOSP O2 SYS EQUIP EQUIP RENT; FLWMTR HUMIDFR&M ASK SPMTRY 53099 JUN BARAHONA W/VC 3 [facility] EXPIRATOR INC INC Y CLAUDIA W/WO MXML VOL VNTJ O2 CONC 1 E1390 MEY MATH[facility]AS [place] [facility] HOSP 85%/>02 EQUIP EQUIP CONC AT [facility] FLW RATE PRTBLE E0431 WEIIRA MEY GASEOUS 3 HOSP HOSP O2 SYS EQUIP EQUIP RENT; FLWCTR HUMIDFR&M ASK CT THORAX 56527 OMAR OMAR 3 CHERELLE CHERELLE W/CONTRAS T MATERIAL LOCM Q9967 JUN BARAHONA 300-399 3 [facility] MG/ML INC INC IODINE CONCENTRA TION PER ML 3D 99783 JUN BARAHONA RENDERING 3 [facility] INC INC W/INTERP& POSTPROC DIFF WORK STATION O2 CONC 1 E1390 MEY MATH[facility]AS [place] [facility] HOSP 85%/>02 EQUIP EQUIP CONC AT [facility] FLW RATE COMPREHEN 76000 COMBINED COMBINED SIVE 3 PHYSICIAN PHYSICIAN METABOLIC S LA S LA PANEL PRTBLE E0431 MEY MATHIAS GASEOUS 3 HOSP HOSP O2 SYS EQUIP EQUIP RENT; [facility] HUMIDFR&M ASK O2 CONC 1 E1390 MEY MATHIAS [place] [facility]P HOSP 85%/>02 EQUIP EQUIP CONC AT [facility] FLW RATE ECG 62139 JUN BARAHONA ROUTINE 3 MEM HOSP MEM [...] HOSP HOSP 85%/>02 EQUIP EQUIP CONC AT [facility] [place] [address] JUN BARAHONA TROPONIN 2 MEM H[facility]P [facility] QUANTITAT INC INC ELVIRA CREATINE 42196 JUN BARAHONA KINASE 2 [facility] TOTAL INC INC ECG 12988 BAHMAN RUGGIERO ROUTINE 2 CHANEL CHANEL ECG W/LEAST 12 LDS I&R ONLY BLOOD 81562 JUN BARAHONA COUNT 2 [facility] COMPLETE INC INC AUTO&AUTO DIFRNTL WBC CREATINE 18283 JUN BARAHONA KINASE MB 2 MEM [facility] FRACTION INC INC ONLY BASIC 53703 JUN BARAHONA METABOLIC 2 [facility] PANEL INC INC CALCIUM TOTAL GROUND A0425 [facility] MILEAGE 2 AMBULANCE AMBULANCE PER SERVICE SERVICE STATUTE MILE ECG 01657 JUN MILLENIUM ROUTINE 2 MEM HOS[facility] ECG INC LABORATOR W/LEAST IES OF CA 12 LDS TRCG ONLY W/O I&R RADIOLOGI 28925 OMAR CHATMANUTCHER C 2 CHERELLE CHERELLE EXAMINATI ON CHEST SINGLE VIEW FRONTAL AMB A0427 [facility] SERVICE 2 AMBULANCE AMBULANCE ALS SERVICE SERVICE EMERGENCY TRANSPORT LEVEL 1 [place] [address] JUN BARAHONA FREE 2 [facility] [place] [address] JUN BARAHONA THYROID 2 [facility] STIMULATI [place] [address] JUN BARAHONA TRIIODOTH 2 [facility] YRONINE INC INC T3 TOTAL TT3 CYANOCOBA 66281 COMBINED COMBINED MIHAELA 2 PHYSICIAN PHYSICIAN VITAMIN S LA S LA B-12 [place] [address] COMBINED COMBINED THYROID 2 PHYSICIAN PHYSICIAN STIMULATI S LA S LA NG HORMONE TSH CULTURE 99925 COMBINED COMBINED BACTERIAL 2 PHYSICIAN PHYSICIAN S LA S LA QUANTTATI VE COLONY COUNT URINE 25 44604 COMBINED COMBINED HYDROXY 2 PHYSICIAN PHYSICIAN INCLUDES S LA S LA FRACTIONS IF PERFORMED COMPREHEN 22085 COMBINED COMBINED SIVE 2 PHYSICIAN PHYSICIAN METABOLIC S LA S LA PANEL PRTBLE E0431 MEY MATHIAS GASEOUS 2 HOSP HOSP O2 SYS EQUIP EQUIP RENT; FLWMTR HUMIDFR&M ASK O2 CONC 1 E1390 [facility]RA [facility]RA [place] [facility]P HOSP 85%/>02 EQUIP EQUIP [facility] AT [facility] FLW RATE GROUND A0425 [facility] PER SERVICE SERVICE STATUTE MILE AMBULANCE A0429 [facility] 2 AMBULANCE AMBULANCE BLS SERVICE SERVICE EMERGENCY TRANSPORT PRTBLE E0431 [facility] GASEOUS 2 HOSP HOSP O2 SYS EQUIP EQUIP RENT; FLWMTR HUMIDFR&M ASK O2 CONC 1 E1390 [facility] [place] [facility] HOSP 85%/>02 EQUIP EQUIP [facility] AT [facility] FLW RATE PRTBLE E0431 [facility] GASEOUS 2 HOSP HOSP O2 SYS EQUIP EQUIP RENT; FLWMTR HUMIDFR&M ASK O2 CONC 1 E1390 [facility] [place] [facility] HOSP 85%/>02 EQUIP EQUIP [facility] AT [facility] FLW RATE PRTBLE E0431 WE[facility] WEIIRA GASEOUS 2 HOSP HOSP O2 SYS EQUIP EQUIP RENT; FLWMTR HUMIDFR&M ASK GROUND A0425 [facility] 2 AMBULANCE AMBULANCE PER SERVICE SERVICE STATUTE MILE AMB A0427 [facility] 2 AMBULANCE AMBULANCE ALS SERVICE SERVICE EMERGENCY TRANSPORT LEVEL 1 O2 CONC 1 E1390 [facility] [place] [facility] HOSP 85%/>02 EQUIP EQUIP [facility] AT [facility] [place] [address] [facility] LIPASE 2 [facility] INC INC 3D 87050 J[facility] RENDERING 2 [facility] W/INTERP& POSTPROC DIFF WORK STATION BLOOD 42404 J[facility] COUNT 2 [facility] COMPLETE INC INC AUTO&[place] [address] JUN BARAH[facility] ABDOMEN & 2 [facility] PELVIS INC INC W/O CONTRAST MATERIAL AMBULANCE A0429 [facility] 2 AMBULANCE AMBULANCE BLS SERVICE SERVICE EMERGENCY TRANSPORT GROUND A0425 [facility] PER SERVICE SERVICE STATUTE MILE COMPREHEN 27352 [facility] SIVE 2 [facility] METABOLIC INC INC PANEL PRTBLE E0431 ME[facility] MATHIAS GASEOUS 2 HOSP HOSP O2 SYS EQUIP EQUIP RENT; FLWMTR HUMIDFR&M ASK O2 CONC 1 E1390 [facility] [place] [facility] HOSP 85%/>02 EQUIP EQUIP CONC AT PRSC FLW RATE PRTBLE E0431 ROMAIN HOYOS GASEOUS 2 HOME HOME O2 SYS MEDICAL MEDICAL RENT; EQUIP EQUIP FLWMTR HUMIDFR&M ASK COMPREHEN 38192 [facility] SIVE 2 [facility] METABOLIC INC INC PANEL URNLS DIP 29971 JUN BARAHONA 2 [facility] STICK/TAB INC INC LET REAGENT AUTO MICROSCOP Y ECG 53020 JUN BARAHONA ROUTINE 2 [facility] ECG INC INC W/LEAST 12 LDS TRCG ONLY W/O I&R CREATINE 58943 JUN BARAHONA KINASE 2 [facility] [place] [address] JUN BARAHONA TROPONIN 2 [facility] QUANTITAT INC INC ELVIRA ECG 83801 JUN JUN ROUTINE 2 [facility] W/LEAST P P 12 LDS I&R ONLY RHYTHM 23117 JUN JUN ECG 1-3 2 [facility] LEADS INC INC TRACING ONLY W/O I&R BLOOD 84184 JUNDANITZA BARAHONA COUNT 2 [facility] COMPLETE INC INC AUTO&AUTO DIFRNTL WBC CREATINE 23723 JUN JUN KINASE MB 2 [facility] FRACTION INC INC ONLY O2 CONC 1 E1390 [facility] [place] 2 HOME HOME 85%/>02 MEDICAL MEDICAL CONC AT EQUIP EQUIP PRSC FLW RATE PRTBLE E0431 ROMAIN HOYOS GASEOUS 2 HOME HOME O2 SYS MEDICAL MEDICAL RENT; EQUIP EQUIP FLWMTR HUMIDFR&M ASK O2 CONC 1 E1390 [facility] 2 HOME HOME 85%/>02 MEDICAL MEDICAL CONC AT EQUIP EQUIP PRSC FLW RATE URNLS DIP 96841 JUN BARAHONA 2 [facility] STICK/TAB INC INC LET REAGENT AUTO MICROSCOP Y PRTBLE E0431 ROM[facility] HOYOS GASEOUS 2 HOME HOME O2 SYS MEDICAL MEDICAL RENT; EQUIP EQUIP FLWMTR HUMIDFR&M ASK O2 CONC 1 E1390 [facility] [place] 2 HOME HOME 85%/>02 MEDICAL MEDICAL CONC AT EQUIP EQUIP [facility] FLW RATE PRTBLE E0431 ROMAIN HOYOS GASEOUS 2 HOME HOME O2 SYS MEDICAL MEDICAL RENT; EQUIP EQUIP FLWMTR HUMIDFR&M ASK O2 CONC 1 E1390 [facility] [place] [place] 2 HOME HOME 85%/>02 MEDICAL MEDICAL CONC AT EQUIP EQUIP [facility] FLW RATE GROUND A0425 [facility] [facility] PER SERVICE SERVICE STATUTE MILE RADIOLOGI 75348 JUN ROBERTSDANITZA Machado 2 [facility] EXAMINATI INC INC ON PELVIS 1/2 VIEWS AMB A0427 [facility] 2 AMBULANCE AMBULANCE ALS SERVICE SERVICE EMERGENCY TRANSPORT LEVEL 1 RADEX HIP 12712 JUN BARAHONA 2 [facility] UNILATERA INC INC L COMPLETE MINIMUM 2 VIEWS PRTBLE E0431 ROMAIN HOYOS GASEOUS 2 HOME HOME O2 SYS MEDICAL MEDICAL RENT; EQUIP EQUIP FLWMTR HUMIDFR&M ASK O2 CONC 1 E1390 ROMAIN HOYOS DEL PORT 2 HOME HOME 85%/>02 MEDICAL MEDICAL CONC AT EQUIP EQUIP [facility] FLW RATE NONINVASI 28474 MARCO A Faustin VE 2 G G EAR/PULSE OXIMETRY SINGLE DETER BLOOD 28546 MARCO A Faustin COUNT 2 G G COMPLETE AUTO&AUTO DIFRNTL WBC URNLS DIP 81888 MARCO A Faustin 2 G G STICK/TAB LET RGNT NON-AUTO W/O MICRSCP PRTBLE E0431 ROMAIN HOYOS GASEOUS 1 HOME [...] CONC AT EQUIP EQUIP PRSC FLW RATE RADIOLOGI 13760 [place] OMAR C 1 MEDICAL CHERELLE EXAMINATI IMAGING ON PELVIS ASS 1/2 VIEWS RADEX 35637 [place] OMAR SPINE 1 MEDICAL CHERELLE CERVICAL IMAGING 4 OR 5 ASS VIEWS RADEX 79525 [facility] MEDICAL CHERELLE LUMBOSACR IMAGING AL ASS MINIMUM 4 VIEWS RADEX 00321 JUN ROBERTSON SPINE 1 [facility] CERVICAL INC INC 6 OR MORE VIEWS GROUND A0425 [facility] PER SERVICE SERVICE STATUTE MILE AMBULANCE A0429 [facility] 1 AMBULANCE AMBULANCE S SERVICE SERVICE EMERGENCY TRANSPORT AMBULANCE A0429 [facility] 1 AMBULANCE AMBULANCE S SERVICE SERVICE EMERGENCY TRANSPORT GROUND A0425 [facility] MILEAGE 1 AMBULANCE AMBULANCE PER SERVICE SERVICE STATUTE MILE PRTBLE E0431 ROMAIN HOYOS GASEOUS 1 HOME HOME O2 SYS MEDICAL MEDICAL RENT; EQUIP EQUIP [facility] HUMIDFR&M ASK COLSC FLX 63923 C LACI DENNY W/RMVL 1 DENISHA PALOMARES OF TUMOR PSC POLYP LESION SNARE TQ ESOPHAGOG 43276 C LACI DENNY ASTRODUOD 1 DENISHA PALOMARES ENOSCOPY [facility] [address] JUN BARAHONA INFUSION 1 [facility] THERAPY INC INC PROPHYLAX IS/DX EA HOUR ENDOSCOPI 4542 JUN BARAHONA C 1 [facility] POLYPECTO [place] [address] SURG 1 LG & [facility] GROSS&BULL ROSCOPIC EXAM OTHER 4513 JUN BARAHONA ENDOSCOPY 1 [facility] OF SMALL INC INC INTESTINE O2 CONC 1 E1390 ROMAIN HOYOS DEL PORT 1 HOME HOME 85%/>02 MEDICAL MEDICAL CONC AT EQUIP EQUIP PRS FLW RATE BLOOD 44778 JUN BARAHONA COUNT 1 [facility] COMPLETE INC INC AUTO&AUTO DIFRNTL WBC COMPREHEN 54282 JUN BARAHONA SIVE 1 [facility] METABOLIC INC INC PANEL URNLS DIP 88294 JUN BARAHONA 1 [facility] STICK/TAB INC INC LET REAGENT AUTO MICROSCOP Y GROUND A0425 [facility] MILEAGE 1 AMBULANCE AMBULANCE PER SERVICE SERVICE STATUTE MILE AMBULANCE A0429 [facility] SERVICE 1 AMBULANCE AMBULANCE S SERVICE SERVICE EMERGENCY TRANSPORT BLOOD 26158 FAMILY FAMILY COUNT 1 CARE CARE COMPLETE [...] RENT; EQUIP EQUIP FLWMTR HUMIDFR&M ASK LIPID 88808 FAMILY MARCO A J PANEL 1 WIRE RIGGER S TRANSFERA 85439 FAMILY MARCO A J SE 1 CARE ASPARTATE ASSOCIATE AMINO S AST SGOT TRANSFERA 63536 FAMILY EASLEY SE 1 CARE HOMAR ALANINE [...] AT EQUIP EQUIP PRSC FLW RATE 3D 62121 JUN BARAHONA RENDERING 1 [facility] INC INC W/INTERP& POSTPROC DIFF WORK STATION ECHO 75819 [facility] R-T 1 PHYSICIAN NAFISA 2D S GROUP W/WOM-MOD E COMPL SPEC&COLR D CT LUMBAR 10947 [place] OMAR SPINE 1 MEDICAL CHERELLE W/O IMAGING CONTRAST ASS MATERIAL RADIOLOGI 00487 [facility] NELSON C EXAM 0 MEDICAL CHERELLE CHEST 2 IMAGING VIEWS ASS FRONTAL&L ATERAL URNLS DIP 69600 JUN ROBERTSON 0 [facility] STICK/TAB INC INC LET REAGENT AUTO MICROSCOP Y GROUND A0425 [facility] MILEAGE 0 AMBULANCE AMBULANCE PER SERVICE SERVICE STATUTE MILE AMBULANCE A0429 [facility] SERVICE 0 AMBULANCE AMBULANCE BLS SERVICE SERVICE EMERGENCY TRANSPORT BASIC 13417 JUN BARAHONA METABOLIC 0 [facility] PANEL INC INC CALCIUM TOTAL CREATINE 42044 JUN BARAHONA KINASE 0 [facility] [place] [address] JUN BARAHONA TROPONIN 0 [facility] QUANTITAT INC INC ELVIRA NATRIURET 82594 JUN BARAHONA IC 0 [facility] PEPTIDE INC INC BLOOD 97936 JUN BARAHONA COUNT 0 [facility] COMPLETE INC INC AUTO&AUTO DIFRNTL WBC CREATINE 05124 JUN BARAHONA KINASE MB 0 [facility] FRACTION INC INC ONLY PRTBLE E0431 CYNFRANCHESCAANA [place] GASEOUS 0 HOME HOME O2 SYS MEDICAL MEDICAL RENT; EQUIP EQUIP FLWMTR HUMIDFR&M ASK O2 CONC 1 E1390 CYNCARISA ARTANA DEL PORT 0 HOME HOME 85%/>02 MEDICAL MEDICAL CONC AT EQUIP EQUIP PRS FLW RATE PRTBLE E0431 [place] GASEOUS 0 HOME HOME O2 SYS MEDICAL MEDICAL RENT; EQUIP EQUIP FLWMTR HUMIDFR&M ASK O2 CONC 1 E1390 CYNTHIANA [place] DEL PORT 0 HOME HOME 85%/>02 MEDICAL MEDICAL CONC AT EQUIP EQUIP PRSC FLW RATE RADEX 02857 [facility] AVILEZ HAND 0 MEDICAL AMILCAR MINIMUM 3 IMAGING VIEWS ASS AMBULANCE A0429 [facility] SERVICE 0 AMBULANCE AMBULANCE BLS SERVICE SERVICE EMERGENCY TRANSPORT GROUND A0425 [facility] MILEAGE 0 AMBULANCE AMBULANCE PER SERVICE SERVICE [...] EQUIP EQUIP FLWMTR HUMIDFR&M ASK O2 CONC E1390 ROMAIN HOYOS DEL PORT 0 HOME HOME 85%/>02 MEDICAL MEDICAL CONC AT EQUIPMENT EQUIPMENT PRSC FLW RATE PRTBLE E0431 ROMAIN HOYOS GASEOUS 0 HOME HOME O2 SYS MEDICAL MEDICAL RENT; EQUIP EQUIP FLWMTR HUMIDFR&M ASK O2 CONC E1390 ROMAIN HOYOS DEL PORT 0 HOME HOME 85%/>02 MEDICAL MEDICAL CONC AT EQUIPMENT EQUIPMENT PRSC FLW RATE PRTBLE E0431 ROMAIN HOYOS GASEOUS 0 HOME HOME O2 SYS MEDICAL MEDICAL RENT; EQUIP EQUIP FLWMTR HUMIDFR&M ASK O2 CONC 1 E1390 ROMAIN HOYOS DEL PORT 0 HOME HOME 85%/>02 MEDICAL MEDICAL CONC AT EQUIPMENT EQUIPMENT PRSC FLW RATE BLOOD 12483 FAMILY MELO, COUNT 0 CARE Lior ESPINOZA COMPLETE ASSOCIATE AUTO&AUTO S DIFRNTL WBC GLUCOSE 00874 FAMILY MELO, POST 0 CARE Lior ESPINOZA GLUCOSE ASSOCIATE DOSE S PRTBLE E0431 ROMAIN HOYOS GASEOUS 0 HOME [...] AT EQUIPMENT EQUIPMENT PRSC FLW RATE COMPREHEN 57685 COMBINED COMBINED SIVE 0 PHYSICIAN PHYSICIAN METABOLIC [...] AT EQUIPMENT EQUIPMENT PRSC FLW RATE IAADI 93468 JUN BARAHONA INFLUENZA 9 [facility] B VIRUS INC INC IAADI 04942 JUN BARAHONA INFFLUENZ 9 [facility] A A VIRUS INC INC CULTURE 07049 JUN BARAHONA BACTERIAL 9 [facility] INC INC QUANTTATI VE COLONY COUNT URINE URNLS DIP 96785 JUN BARAHONA 9 [facility] STICK/TAB INC INC LET REAGENT AUTO MICROSCOP Y O2 CONC 1 E1390 ROMAIN HOYOS DEL PORT 9 HOME HOME 85%/>02 MEDICAL MEDICAL CONC AT EQUIPMENT EQUIPMENT PRSC FLW RATE O2 CONC 1 E1390 ROMAIN VENEGAS PORT 9 HOME HOME 85%/>02 MEDICAL MEDICAL CONC AT EQUIPMENT EQUIPMENT PRSC FLW RATE CUL BACT 15022 JUN BARAHONA XCPT 9 [facility] URINE INC INC BLOOD/STO OL AEROBIC ISOL SMR PRIM 31553 JUN BARAHONA SRC 9 [facility] GRAM/GIEM INC INC SA STAIN BCT FUNGI/CANDICE L RADIOLOGI 69447 JUN BARAHONA C EXAM 9 [facility] CHEST 2 INC INC VIEWS FRONTAL&L ATERAL O2 CONC 1 E1390 ROMAIN VENEGAS PORT 9 HOME HOME 85%/>02 MEDICAL MEDICAL CONC AT EQUIPMENT EQUIPMENT PRSC FLW RATE O2 CONC 1 E1390 ROMAIN VENEGAS PORT 9 HOME HOME 85%/>02 MEDICAL MEDICAL CONC AT EQUIPMENT EQUIPMENT PRSC FLW RATE RADIOLOGI 01666 Jeannette BRAVO 9 MEDICAL AMAURI EXAMINATI IMAGING ON KNEE 3 ASSOCIATE VIEWS S RADEX 27772 JUN BARAHONA ANKLE 9 [facility] COMPLETE INC INC MINIMUM 3 VIEWS RADEX HIP 72811 ZUHAIR NELSON 9 MEDICAL AMAURI UNILATERA IMAGING L ASSOCIATE COMPLETE S MINIMUM 2 VIEWS O2 CONC 1 E1390 ROMAIN VENEGAS PORT 9 HOME HOME 85%/>02 MEDICAL MEDICAL CONC AT EQUIPMENT EQUIPMENT PRSC FLW RATE O2 CONC 1 E1390 ROMAIN VENEGAS PORT 9 HOME HOME 85%/>02 MEDICAL MEDICAL CONC AT EQUIPMENT EQUIPMENT PRSC FLW RATE O2 CONC 1 E1390 ROMAIN VENEGAS PORT 9 HOME HOME 85%/>02 MEDICAL MEDICAL CONC AT EQUIPMENT EQUIPMENT PRSC FLW RATE CULTURE 64995 COMBINED COMBINED BACTERIAL 9 PHYSICIAN PHYSICIAN S LAB S LAB QUANTTATI VE COLONY COUNT URINE O2 CONC 1 E1390 ROMAIN HOYOS DEL PORT 9 HOME HOME 85%/>02 MEDICAL MEDICAL CONC AT EQUIPMENT EQUIPMENT PRSC FLW RATE O2 CONC 1 E1390 ROMAIN HOYOS DEL PORT 9 HOME HOME 85%/>02 MEDICAL MEDICAL CONC AT EQUIPMENT EQUIPMENT PRSC FLW RATE HEMOGLOBI 31141 COMBINED COMBINED N 9 PHYSICIAN PHYSICIAN GLYCOSYLA S LAB S LAB GARRETT A1C COMPREHEN 59217 COMBINED COMBINED SIVE 9 PHYSICIAN PHYSICIAN METABOLIC S LAB S LAB PANEL BLD GLU A4253 CRISTINO CRISTINO TEST/REAG 9 HOME MED HOME MED T STRIPS [facility]IP. [facility] GLU MON-50 LANCETS A4259 CRISTINO CRISTINO PER BOX 9 HOME MED HOME MED OF 100 [facility] O2 CONC 1 E1390 ROMAIN HOYSO DEL PORT 9 HOME HOME 85%/>02 MEDICAL MEDICAL CONC AT EQUIPMENT EQUIPMENT PRSC FLW RATE O2 CONC 1 E1390 ROMAIN HOYOS DEL PORT 9 HOME HOME 85%/>02 MEDICAL MEDICAL CONC AT EQUIPMENT EQUIPMENT PRSC FLW RATE O2 CONC 1 E1390 ROMAIN HOYOS DEL PORT 8 HOME HOME 85%/>02 MEDICAL MEDICAL CONC AT EQUIPMENT EQUIPMENT PRSC FLW RATE BLD GLU A4253 CRISTINO CRISTINO TEST/REAG 8 HOME MED HOME MED T STRIPS EQUIP. EQUIP. HOME BLD [facility] GLU MON-50 LANCETS A4259 CRISTINO CRISTINO PER BOX 8 HOME MED HOME MED OF 100 [facility]. [facility] [employer] [facility] O2 CONC 1 E1390 ROMAIN HOYOS DEL PORT 8 HOME HOME 85%/>02 MEDICAL MEDICAL CONC AT EQUIPMENT EQUIPMENT PRSC FLW RATE CYSTO 94579 COMMONWEA MEDINA, BLADDER 8 H DANIE D W/URETERA UROLOGY L [facility] CATHETERI ZATION ECG 48296 ROBLES JUSTICE, ROUTINE 8 [facility] ECG CLINIC W/LEAST PSC 12 LDS I&R ONLY ANES 19085 ANESTHESI BINGCANG, TRANSURET 8 A B P HRAL ASSOCIATE W/URETHRO S, PSC CYSTOSCOP Y NOS THER 83046 JUN BARAHONA PROPH/DX 8 [facility] NJX INC INC SUBQ/IM BLOOD 96492 JUN BARAHONA COUNT 8 [facility] COMPLETE INC INC AUTO&AUTO DIFRNTL WBC ECG 51503 JUN BARNETT ROUTINE 8 [facility] W/LEAST PROF SERV 12 LDS I&[place] [address] JUN BARAHONA TROPONIN 8 [facility] QUANTITAT INC INC ELVRIA CREATINE 25098 JUN BARAHONA KINASE 8 [facility] TOTAL INC INC GROUND A0425 [facility]UL[facility] PER SERVICE SERVICE STATUTE MILE BASIC 06598 JUN BARAHONA METABOLIC 8 [facility] PANEL INC INC CALCIUM TOTAL CREATINE 49947 JUN BARAHONA KINASE MB 8 [facility] FRACTION INC INC ONLY AMB A0422 CARLEE BEJARANO OXYGEN&O2 8 AMBULANCE AMBULANCE SUPPLIES SERVICE SERVICE LIFE SUSTAININ G SITUATION AMB A0427 [facility] 8 AMBULANCE AMBULANCE ALS SERVICE SERVICE EMERGENCY TRANSPORT LEVEL 1 ECG 93368 JUN BARAHONA ROUTINE 8 [facility] ECG INC INC W/LEAST 12 LDS TRCG ONLY W/O I&R RADIOLOGI 52193 [place] Jeannette AVILEZ 8 MEDICAL ALVIN Orozco EXAMINATI IMAGING ON CHEST ASSOCIATE SINGLE S VIEW FRONTAL CULTURE 38350 COMBINED COMBINED BACTERIAL 8 PHYSICIAN PHYSICIAN S LAB S LAB QUANTTATI VE COLONY COUNT URINE O2 CONC 1 E1390 CY[place] DEL PORT 8 HOME HOME 85%/>02 MEDICAL MEDICAL CONC AT EQUIPMENT EQUIPMENT PRSC FLW RATE ADMN SET A7003 [place] SM VOL 8 HOME HOME NONFILTR MEDICAL MEDICAL PNEUMAT EQUIPMENT EQUIPMENT NEBULIZR DISPBL SMALL A7004 [place] VOLUME 8 HOME HOME NONFILTR MEDICAL MEDICAL PNEUMATIC EQUIPMENT EQUIPMENT NEBULIZER DISPBL GROUND A0425 [facility] AMBULANCE PER SERVICE SERVICE STATUTE MILE AMB A0427 [facility] 8 AMBULANCE AMBULANCE ALS SERVICE SERVICE EMERGENCY TRANSPORT LEVEL 1 RADIOLOGI 55341 Jeannette BRAVO 8 MEDICAL AMAURI EXAMINATI IMAGING ON CHEST ASSOCIATE SINGLE S VIEW FRONTAL ECG 60847 NATHALIE RAYMOND 8 [facility] W/LEAST PROF SERV 12 LDS I&R ONLY O2 CONC 1 E1390 CYNCARISA ARTANA DEL PORT 8 HOME HOME 85%/>02 MEDICAL MEDICAL CONC AT EQUIPMENT EQUIPMENT PRSC FLW RATE O2 CONC 1 E1390 CYNFRANCHESCAANA CYNFRANCHESCAANA DEL PORT 8 HOME HOME 85%/>02 MEDICAL MEDICAL CONC AT EQUIPMENT EQUIPMENT PRSC FLW RATE LANCETS A4259 CRISTINO GREGG PER BOX 8 HOME MED HOME MED OF 100 [facility] BLD GLU A4253 CRISTINO GREGG TEST/REAG 8 HOME MED HOME MED T STRIPS EQUIP. EQUIP. HOME D [facility] GLU MON-50 BRNCDILAT 18191 JUN BARNETT RSPSE 8 [facility] MAGALI PRE&POST- PROF SERV BRNCDILAT ADMN FUNCTIONA 71016 JUN BARAHONA L 8 [facility] RESIDUAL INC INC CAPACITY OR RESIDUAL VOLUME DETER 76129 JUN BARAHONA MALDISTRI 8 [facility] BJ OF INC INC INSPIRED GAS N WSHOT CURVE DETER 82960 JUN BARAHONA AIRWY 8 [facility] CLOSING INC INC VOL 1 BRTH TSTS PRESSURIZ 18645 JUN BARAHONA ED/NONPRE 8 [facility] SSURIZED INC INC INHALATIO N TREATMENT SMALL A7004 CYNFRANCHESCADORIAN CYNCARISA VOLUME 8 HOME HOME NONFILTR MEDICAL MEDICAL PNEUMATIC EQUIPMENT EQUIPMENT NEBULIZER DISPBL ADMN SET A7003 [place] SM VOL 8 HOME HOME NONFILTR MEDICAL MEDICAL PNEUMAT EQUIPMENT EQUIPMENT NEBULIZR DISPBL O2 CONC 1 E1390 CYNCARISA ARTANA DEL PORT 8 HOME HOME 85%/>02 MEDICAL MEDICAL CONC AT EQUIPMENT EQUIPMENT PRSC FLW RATE O2 CONC 1 E1390 [place] DEL PORT 8 HOME HOME 85%/>02 MEDICAL MEDICAL CONC AT EQUIPMENT EQUIPMENT PRSC FLW RATE DRUG 63677 JUN BARAHONA SCREEN 8 [facility] QUANTITAT INC INC ELVIRA DIGOXIN TOTAL COMPREHEN 20255 JUN BARAHONA SIVE 8 [facility] METABOLIC INC INC PANEL URNLS DIP 12754 JUN BARAHONA 8 [facility] STICK/TAB INC INC LET REAGENT AUTO MICROSCOP Y CREATINE 41788 JUN BARAHONA KINASE MB 8 [facility] FRACTION INC INC ONLY RADEX 22037 [place] OMAR, ABDOMEN 1 8 MEDICAL AMAURI IMAGING ANTEROPOS ASSOCIATE TERIOR S VIEW RADIOLOGI 38913 JUN BARAHONA C 8 [facility] EXAMINATI INC INC ON CHEST SINGLE VIEW FRONTAL ECG 90416 JUN BARAHONA ROUTINE 8 [facility] ECG INC INC W/LEAST 12 LDS TRCG ONLY W/O I&R BLOOD 51494 JUN BARAHONA COUNT 8 [facility] COMPLETE INC INC AUTO&AUTO DIFRNTL WBC CULTURE 52360 JUN BARAHONA BACTERIAL 8 [facility] INC INC QUANTTAT[place] [address] JUN BARAHONA TROPONIN 8 [facility] QUANTITAT INC INC ELVIRA CREATINE 89803 JUN BARAHONA KINASE 8 [facility] TOTAL INC INC RHYTHM 86866 JUN BARAHONA ECG 1-3 8 [facility] LEADS INC INC TRACING ONLY W/O I&R ECG 90460 JUN BARNETT ROUTINE 8 [facility] MAGALI F W/LEAST PROF SERV 12 LDS I&R ONLY O2 CONC 1 E1390 ROMAIN HOYOS DEL PORT 8 HOME HOME 85%/>02 MEDICAL MEDICAL CONC AT EQUIPMENT EQUIPMENT PRSC FLW RATE O2 CONC 1 E1390 CYNCARISA HOYOS DEL PORT 8 HOME HOME 85%/>02 MEDICAL MEDICAL CONC AT EQUIPMENT EQUIPMENT PRSC FLW RATE ECG 63000 JUN ROY, ROUTINE 8 [facility] W/LEAST PROF SERV 12 LDS I&R ONLY RADIOLOGI 36950 [place] Jeannette NELSON 8 MEDICAL AMAURI EXAMINATI IMAGING ON CHEST ASSOCIATE SINGLE S VIEW FRONTAL GROUND A0425 [facility] MILEAGE 8 AMBULANCE AMBULANCE PER SERVICE SERVICE STATUTE MILE AMB A0427 [facility] SERVICE 8 AMBULANCE AMBULANCE ALS SERVICE SERVICE EMERGENCY TRANSPORT LEVEL 1 L HRT 66143 ROBLES LI CATHETERI 8 [facility] AM[facility]AL ZATION CLINIC [place] [address] ROBLES LI, C-CATHJ 8 MIKKI AMARAL F/SLCTV C CLINIC ANGRPH PSC I SI&R 12298 ROBLES LI, F/NJX PX 8 [facility] AMARAL DURING CLINIC C-CATHJ PSC VENTR&/AT R ANGRPH I SI&R 24956 ROBLES LI F/NJX PX 8 MIKKI AMARAL DURING CLINIC C-CATHJ PSC PULM&/OR SELECT ECG 77934 ROBLES LI ROUTINE 8 MIKKI AMARAL ECG CLINIC W/LEAST PSC 12 LDS I&R ONLY INJECTION 12473 ROBLES LI CARDIAC 8 MIKKI AMARAL CATHJ L CLINIC VENTR/L PSC ATR ANGIOGRAP H LANCETS A4259 CRISTINO GREGG PER BOX 8 HOME MED HOME MED OF 100 EQUIP. EQUIP. LLC [facility] BLD GLU A4253 CRISTINO GREGG TEST/REAG 8 HOME MED HOME MED T STRIPS EQUIP. EQUIP. HOME D [facility] GLU MON-50 SMALL A7004 ROMAIN HOYOS VOLUME 8 HOME HOME NONFILTR MEDICAL MEDICAL PNEUMATIC EQUIPMENT EQUIPMENT NEBULIZER DISPBL ADMN SET A7003 CYNCARISA HOYOS SM VOL 8 HOME HOME NONFILTR MEDICAL MEDICAL PNEUMAT EQUIPMENT EQUIPMENT NEBULIZR DISPBL BLDR 61205 WILL COOKATIO 8 LTH DANIEJENNIFER Nicole [facility] [place] PSC &/INSTLJ O2 CONC 1 E1390 ROMAIN HOYOS DEL PORT 8 HOME HOME 85%/>02 MEDICAL MEDICAL CONC AT EQUIPMENT EQUIPMENT PRSC FLW RATE BLDR 37178 COMMONWEA CAROL IRRIGATIO 8 LTH DANIE D N SMPL UROLOGY [place] PSC &/INSTLJ BLDR 39596 MICHAEL MEDINA, IRRIGATIO 8 LTH DANIE D N [facility]PL UROLOGY [place] PSC &/INSTLJ O2 CONC 1 E1390 ROMAIN HOYOS DEL PORT 8 HOME HOME 85%/>02 MEDICAL MEDICAL CONC AT EQUIPMENT EQUIPMENT PRSC FLW RATE URNLS DIP 41798 JUN BARAHONA 8 [facility] STICK/TAB INC INC LET REAGENT AUTO MICROSCOP Y LANCETS A4259 CRISTINO GREGG PER BOX 8 HOME MED HOME MED OF 100 [facility] BLD GLU A4253 CRISTINO GREGG TEST/REAG 8 HOME MED HOME MED T STRIPS EQUIP. EQUIP. HOME D [facility] GLU MON-50 SMALL A7004 ROMAIN HOYOS VOLUME [...] Date Code Location Performer Type Date OFFICE 24784 JUN FREDDY OUTPATIEN 7 7 [facility] 10 P MINUTES OFFICE 49447 JUN FREDDY OUTPATIEN 7 7 [facility] VISIT 5 HOSPITAL MINUTES P OFFICE 81389 JUN FREDDY OUTPATIEN 7 7 [facility] 10 P MINUTES HOSPITAL JUN - 7 7 [facility] OUTPATIEN INC T HOSPITAL JUN - 7 7 [facility] OUTPATIEN INC T HOSPITAL JUN - 7 7 [facility] OUTPATIEN INC T OFFICE 62015 JUN FREDDY OUTPATIEN 7 7 [facility] 20 HOSPITAL MINUTES P HOSPITAL JUN - 7 7 [facility] OUTPATIEN INC HOSPITAL [address] OUTPATI T OFFICE [address] [facility] 7 7 [facility] T VISIT MEDICAL 25 G MINUTES EMERGENCY 37872 JUN DEPT 7 7 [facility] VISIT INC HIGH SEVERITY& [facility] 7 [facility] OUTPATIEN INC T OFFICE 76471 FAMILY TRU OUTPATIEN 6 6 CARE T VISIT ASSOCIATE 15 S MINUTES EMERGENCY 45147 AMPARO GRAY 6 6 PHYSICIAN DEPARTMEN S, [facility] T VISIT HIGH/URGE NT SEVERITY HOSPITAL JUN - 6 6 [facility] OUTPATIEN [facility] T EMERGENCY 67657 JUN 6 6 [facility] T VISIT LOW/MODER SEVERITY OFFICE 17083 FAMILY MARCO A OUTPATIEN 6 6 CARE MARZENA T VISIT ASSOCIATE 15 S MINUTES HOSPITAL JUN - 6 6 [facility] OUTPATIEN INC T OFFICE 76185 PROGRESSI JAMAR OUTPATIEN 6 6 VE MOUNA T VISIT PODIATRY 15 MINUTES OFFICE 88901 FAMILY MARCO A OUTPATIEN 6 6 CARE MARZENA T VISIT ASSOCIATE 15 S MINUTES OFFICE 31369 FAMILY MARCO A CONSULTAT 6 6 CARE MARZENA ION ASSOCIATE NEW/ESTAB S PATIENT 40 MIN OFFICE 98167 PROGRESSI JAMAR OUTPATIEN 6 6 VE MOUNA T VISIT PODIATRY 15 MINUTES HOSPITAL JUN - 6 6 [facility] OUTPATIEN INC T OFFICE 31662 FALLIS JAMAR OUTPATIEN 6 6 T NEW 30 MINUTES OFFICE 92006 [facility] OUTPATIEN 6 6 PHYSICIAN HAYLIE Suarez NEW 20 S GROUP MINUTES EMERGENCY 85654 JUN 6 6 [facility] DEPARTMEN INC T VISIT LOW/MODER SEVERITY HOSPITAL JUN - 6 6 [facility] OUTPATIEN INC T EMERGENCY 15189 AMPARO [facility] 6 6 PHYSICIAN DEPARTMEN S, [facility] T VISIT HIGH/URGE NT SEVERITY EMERGENCY 85765 AMPARO [facility] 6 6 PHYSICIAN DEPARTMEN S, [facility] T VISIT HIGH/URGE NT SEVERITY OFFICE 86962 [facility] 6 6 [facility] T VISIT MEDICAL 25 G MINUTES EMERGENCY 37163 AMPARO LUNDBERG DEPT 6 6 PHYSICIAN U PARKER VISIT S, [facility] HIGH SEVERITY& THREAT [facility] H[facility]PITAL JUN - 6 6 [facility] OUTPATIEN INC T EMERGENCY 37513 AMPARO KRISHNA 5 5 PHYSICIAN LEONARDO [facility] S, [facility] T VISIT HIGH/URGE NT SEVERITY HOSPITAL JUN - 5 5 [facility] OUTPATIEN INC T EMERGENCY 94699 JUN 5 5 [facility] DEPARTMEN INC T VISIT LOW/MODER SEVERITY HOSPITAL JUN - 5 5 [facility] OUTPATIEN INC T OFFICE 06022 [facility] OUTPATIEN 5 5 [facility] T VISIT MEDICAL 40 G MINUTES HOSPITAL [facility] - 5 5 HOSPITAL INPATIENT OFFICE [id number] FAMILY MARCO A OUTPATIEN 5 5 [facility] T VISIT ASSOCIATE 25 S MINUTES EMERGENCY 15124 AMPARO Boudreaux 5 5 PHYSICIAN DEPARTMEN S, [facility] T VISIT HIGH/URGE NT SEVERITY HOSPITAL JUN - 5 5 [facility] OUTPATIEN INC T OFFICE 09349 FAMILY [facility] A OUTPATIEN 5 5 [facility] T VISIT ASSOCIATE 15 S MINUTES [facility]OSPITAL JUN - 5 5 [facility] T [facility] JUN - 5 5 [facility] INC T OFFICE 14615 DIANNE FALLUJI OUTPATIEN 5 5 [facility] T VISIT MEDICAL 25 G MINUTES HOSPITAL JUN [facility] 5 5 [facility]IEN INC T OFFICE 86083 [facility]ILY [facility] A OUTPATIEN 5 5 [facility] T VISIT ASSOCIATE 15 S MINUTES OFFICE 72120 [facility]ILY [facility] A OUTPATIEN 5 5 [facility] T VISIT ASSOCIATE 15 S MINUTES [facility]OSPITAL JUN - 5 5 [facility] T OFFICE 14466 FAMILY [facility] A OUTPATIEN 5 5 [facility] T VISIT ASSOCIATE 15 S MINUTES [facility] [address] INPATIENT EMERGENCY 95912 [facility] DEPT 4 4 ANTONIETA VISIT EMERGENCY HIGH PHYS SEVERITY& THREAT FUNCJ EMERGENCY 73194 [facility] 4 4 ANTONIETA DEPARTMEN EMERGENCY T VISIT PHYS HIGH/URGE NT SEVERITY EMERGENCY 62107 [facility] 4 4 [facility]TONIET[facility] DEPARTMEN EMERGENCY T VISIT PHYS HIGH/URGE NT SEVERITY EMERGENCY 38530 [facility] DEPT 4 4 ANTONIETA IMT VISIT EMERGENCY HIGH PHYS SEVERITY& THREAT FUNCJ EMERGENCY 20370 [facility] 4 4 ANTONIETA [facility] DEPARTMEN EMERGENCY T VISIT PHYS HIGH/URGE NT SEVERITY OFFICE 83866 [facility] OUTPATIEN 4 4 CARE T VISIT ASSOCIATE 25 S MINUTES EMERGENCY 93417 [facility] 4 4 DEPARTMEN T VISIT HIGH/URGE NT SEVERITY EMERGENCY 49872 JAMAR ROLDAN 4 4 III SHEILA III SHEILA DEPARTMEN T VISIT MODERATE SEVERITY EMERGENCY 96987 [facility] 4 4 DEPARTMEN T VISIT HIGH/URGE NT SEVERITY EMERGENCY 10475 JAMAR ROLDAN 4 4 III SHEILA III SHEIL[facility] DEPARTMEN T VISIT HIGH/URGE NT SEVERITY OFFICE 86698 [facility] 3 3 ALI SARABJIT ALI SARABJIT T VISIT 15 MINUTES HOSPITAL JUN - 3 3 [facility] OFF[facility] 90774 [facility] OUTPATIEN 3 3 ALI SARABJIT ALI SARABJIT T NEW 45 MINUTES EMERGENCY 27197 [facility] DEPT 3 [address] [facility] VISIT HIGH SEVERITY& THREAT FUNCJ EMERGENCY 88366 JUN 3 3 [facility] T VISIT MODERATE SEVERITY EMERGENCY 57131 [facility] [place] 3 3 [facility] T VISIT HIGH/URGE NT SEVERITY HOSPITAL JUN - 3 3 [facility] OUTPATIEN [facility] OFFICE 51983 [facility] OUTPATIEN 3 3 G G T VISIT 15 MINUTES HOSPITAL JUN - 3 3 [facility] OUTPATIEN [facility] JUN - 3 3 [facility] OUTPATIEN [facility] JUN [facility] 3 3 [facility] OUTPATIEN [facility] JUN - 2 2 [facility] OUTPATIEN [facility] EMERGENCY 24032 JAMAR ROLDAN DEPT 2 2 III SHEILA III [facility] VISIT HIGH SEVERITY& THREAT FUNCJ EMERGENCY 62134 JUN 2 2 [facility] T VISIT HIGH/URGE NT SEVERITY HOSPITAL JUN - 2 2 [facility] OUTPATIEN [facility] T OFFICE 50555 [facility] 2 2 L L ION NEW/ESTAB PATIENT 60 MIN HOSPITAL JUN - 2 2 [facility] OUTPATIEN INC T EMERGENCY 21837 JUN 2 2 [facility] DEPARTMEN INC T VISIT HIGH/URGE NT SEVERITY OFFICE 82281 [facility] OUTPATIEN 2 2 R H R H T VISIT 15 MINUTES EMERGENCY 96933 [facility] 2 2 [facility] DEPARTMEN SERVICES T VISIT HIGH/URGE NT SEVERITY EMERGENCY 95882 [facility] DE[facility] 2 2 III SHEILA III SHEILA VISIT HIGH SEVERITY& THREAT FUNCJ EMERGENCY 44537 JUN 2 2 [facility] DEPART[facility] T VISIT MODERATE SEVERITY OFFICE 59944 MARCO A Faustin OUTPATIEN 2 2 T VISIT 25 MINUTES HOSPITAL JUN - 2 2 [facility] OUTPATIEN INC T EMERGENCY 62826 ALEX KEYES DEPT 2 2 EMERGENCY [facility] VISIT SERVICES HIGH SEVERITY& THREAT FUNJ [facility]OSPITAL JUN - 2 2 [facility] OUT[facility] INC T EMERGENCY 53766 JUN 2 2 [facility] DEPARTMEN INC T VISIT HIGH/URGE NT SEVERITY OFFICE 29318 [facility] OUTPATIEN 2 2 KEO KEO T VISIT 10 MINUTES HOSPITAL JUN - 2 2 [facility] OUTPATIEN INC T EMERGENCY 40228 JUN 2 2 [facility] DEPARTMEN INC T VISIT MODERATE SEVERITY EMERGENCY 76181 ALEX ALCOCER 2 2 EMERGENCY DEPARTMEN SERVICES T VISIT HIGH/URGE NT SEVERITY EMERGENCY 68192 ALEX CASTLE 2 2 EMERGENCY [facility] SERVICES T VISIT HIGH/URGE NT SEVERITY HOSPITAL JUN - 2 2 [facility] OUTPATI[facility] INC T EMERGENCY 06769 JUN 2 2 [facility] DEPARTMEN INC T VISIT HIGH/URGE NT SEVERITY OFFICE 73228 MARCO A J MARCO A J OUTPATIEN 2 2 G G T VISIT 25 MINUTES HOSPITAL JUN - 1 1 [facility] OUTPATIEN INC T EMERGENCY 75035 ALEX CASTLE 1 1 EMERGENCY [facility] SERVICES T VISIT HIGH/URGE NT SEVERITY EMERGENCY 80884 JUN 1 1 [facility] T VISIT MODERATE SEVERITY OFFICE 10629 Jeannette DENNY OUTPATIEN 1 1 DENISHA Suarez VISIT [facility] 15 MINUTES HOSPITAL JUN - 1 1 [facility] OUTPATIEN [facility] JUN - 1 1 [facility] OUTPATIEN [facility] EMERGENCY 93893 ALEX MCCOLLUM DEPT 1 1 EMERGENCY VISIT SERVICES HIGH SEVERITY& THREAT FUNCJ EMERGENCY 43080 JUN 1 1 [facility] T VISIT HIGH/URGE NT SEVERITY OFFICE 52143 Jeannette DENNY CONSULTAT 1 1 DENISHA WAYNE MD [facility] NEW/ESTAB PATIENT 60 MIN OFFICE 17070 FAMILY LORIE OUTPATIEN 1 1 CARE R H T VISIT ASSOCIATE 15 S MINUTES OFFICE 81619 FAMILY OUTPATIEN 1 1 CARE T VISIT ASSOCIATE 15 S MINUTES OFFICE 03425 FAMILY MARCO A J OUTPATIEN 1 1 CARE T VISIT ASSOCIATE 15 S MINUTES HOSPITAL JUN - 1 1 [facility] OUTPATIEN INC T OFFICE 57750 FAMILY MARCO A J OUTPATIEN 1 1 CARE T VISIT ASSOCIATE 25 S MINUTES EMERGENCY 22307 [facility] H[facility]GE [facility] SEVERITY [facility]OSPITAL JUN - 0 0 [facility] OUTPATIEN INC T EMERGENCY 90357 ALEX BRYANT CHUN DEPT 0 0 EMERGENCY VISIT SERVICES HIGH SEVERITY& THREAT [facility] JUN - 0 0 [facility] OUTPATI[facility] INC T EMERGENCY 77046 ALEX CASTLE 0 0 EMERGENCY [facility] SERVICES T VISIT HIGH/URGE NT SEVERITY EMERGENCY 86076 JUN 0 0 [facility] DEPARTMEN INC T VISIT LOW/MODER SEVERITY [facility]OSPITAL JUN - 0 0 [facility] OUTPATIEN INC T OFFICE 61429 Ramin JAMES OUTPATIEN 0 0 CARE G T VISIT ASSOCIATE 15 S MINUTES OFFICE 74466 FAMILY MELO LIZETHPATIEN 0 0 CARE R OLGA T VISIT ASSOCIATE 25 S MINUTES HOSPITAL JUN - 9 9 [facility] OUTPATIEN INC T EMERGENCY 39386 ALEX ALVAREZSHERINE 9 9 EMERGENCY III, DEPARTMEN SERVICES MAGALI T VISIT HIGH/URGE ASSOCIATE NT S SEVERITY EMERGENCY 42218 JUN 9 9 [facility] DEPARTMEN INC T VISIT MODERATE SEVERITY OFFICE 50470 Ramin STRICKLAND OUTPATIEN 9 9 CARE G T VISIT ASSOCIATE 15 S MINUTES HOSPITAL JUN - 9 9 [facility] OUTPATIEN INC T OFFICE 14875 FAMILY MELO OUTPATIEN 9 9 CARE R OLGA T VISIT ASSOCIATE 15 S MINUTES EMERGENCY 35045 ALEX CHOLO, 9 9 EMERGENCY VIN DEPARTMEN SERVICES O T VISIT HIGH/URGE ASSOCIATE NT S SEVERITY EMERGENCY 78845 JUN 9 9 [facility] DEPARTMEN INC T VISIT LOW/MODER SEVERITY HOSPITAL JUN - 9 9 [facility] OUTPATIEN INC T OFFICE 74745 JENNI COOKEN 8 8 [facility] DANIE D T VISIT UROLOGY 15 PSC MINUTES OFFICE 40810 Ramin JAMES 8 8 CARE G T VISIT ASSOCIATE 15 S MINUTES OFFICE 70548 Ramin JAMES 8 8 CARE G T VISIT ASSOCIATE 15 S MINUTES OFFICE 23643 Ramin JAMES 8 8 CARE G T VISIT ASSOCIATE 15 S MINUTES OFFICE 90813 TIA PONCE CONSULTAT 8 8 MEDICAL , [facility] NEW/ESTAB FOUNDATIO PATIENT 80 MIN HOSPITAL JUN - 8 8 [facility] OUTPATIEN INC T EMERGENCY 66630 JUN 8 8 [facility] DEPARTMEN INC T VISIT HIGH/URGE NT SEVERITY HOSPITAL JUN - 8 8 [facility] OUTPATIEN INC T EMERGENCY 15130 JADA TOLLIVER, DEPT 8 8 [facility] VISIT CORPORATI HIGH ON SEVERITY& THREAT FUNCJ OFFICE 69725 MARIO COOK 8 8 [facility] DANIE D T VISIT UROLOGY 15 PSC MINUTES OFFICE 78675 MARIO GAMBOA 8 8 [facility] VISIT CLINIC 25 PSC MINUTES OFFICE 90128 Ramin JAMES 8 8 CARE G T VISIT ASSOCIATE 15 S MINUTES OFFICE 29972 MARIO UP 8 8 CARE R OLGA T VISIT ASSOCIATE 15 S MINUTES OFFICE 66147 MARIO COOK 8 8 [facility] DANIE D T VISIT UROLOGY 25 PSC MINUTES OFFICE 48537 Ramin JAMES 8 8 CARE G T VISIT ASSOCIATE 15 S MINUTES HOSPITAL JUN - 8 8 [facility] OUTPATIEN INC T OFFICE 61325 FAMILY MARCO A, J OUTPATIEN 8 8 CARE G T VISIT ASSOCIATE 25 S MINUTES OFFICE 16934 Ramin JAMES OUTPATIEN 8 8 CARE G T VISIT ASSOCIATE 15 S MINUTES OFFICE 00980 Ramin JAMES OUTPATIEN 8 8 CARE G T VISIT ASSOCIATE 25 S MINUTES HOSPITAL JUN - 8 8 [facility]PAT[facility] INC T [facility]OSPITAL JUN - 8 8 [facility] OUTPATIEN INC T EMERGENCY 12005 JUN [facility]OPE DEPT 8 8 [facility] T VISIT HOSPITAL HIGH PROF SERV SEVERITY& THREAT FUNCJ EMERGENCY 58696 JUN 8 8 [facility] DEPARTMEN INC T VISIT HIGH/URGE NT SEVERITY OFFICE 65266 ROBLES LI OUTPATIEN 8 8 [facility] 15 PSC MINUTES OFFICE 52682 [facility], OUTPATIEN 8 8 [facility] DANIE D T VISIT UROLOGY 15 PSC MINUTES OFFICE 22618 [facility], OUTPATIEN 8 8 [facility] DANIE D T VISIT UROLOGY 15 PSC MINUTES OFFICE 26189 [facility], OUTPATIEN 8 8 [facility] DANIE D T VISIT UROLOGY 15 PSC MINUTES EMERGENCY 15804 JUN 8 8 [facility] DEPARTMEN INC T VISIT LOW/MODER SEVERITY HOSPITAL JUN - 8 8 [facility] OUTPATI[facility] INC T OFFICE 97823 [facility] OUT[facility] 8 8 [facility] DANIE D T VISIT UROLOGY 15 PSC MINUTES OFFICE 26231 [facility], OUTPATIEN 8 8 [facility] DANIE D T VISIT UROLOGY 15 PSC MINUTES OFFICE 55178 Ramin JAMES OUTPATIEN 8 8 CARE G T VISIT ASSOCIATE 15 S MINUTES
--- OUTSIDE RECORDS SUMMARY | 2016-12-15 06:16 | External Medical Summary Rpt ---
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 96 ER [...] 1- 1- 00 IC 35 ER ve KY 75 20 20 IL 76 10 10 [...] -3 -0 .0 IN 54 OP ti [place] 30 0- 1- 00 IC 96 ER [...] -3 -3 .0 IN 54 OP ti [place] 30 0- 0- 00 IC 96 ER [...] 1- 9- 00 IC 35 ER ve KY 07 20 20 IL 20 10 10 [...] Y LL CA C PS UL E [place] 68 03 03 0 20 5 CL [...] -0 -1 .0 IN 22 OP ti [place] 30 7- 2- 00 IC 14 ER [...] 1- 2- 00 IC 35 ER ve KY 07 20 20 IL 20 10 10 [...] -0 -2 .0 IN 22 OP ti [place] 30 7- 6- 00 IC 14 ER ve OL 73 20 20 OL 31 09 10 PH DUARTE 0 AR HN TA MA G RT CY RA TE 50 MG TA B LI 00 01 02 01 30 30 CL 20 CO Ac SI 37 -1 -2 .0 IN 85 OP ti NO 82 1- 6- 00 IC 35 ER ve KY 07 20 20 IL 20 10 10 [...] 4- 1- 00 IC 51 ER ve KY 23 20 20 AM 30 10 10 [...] 1- 8- 00 IC 35 ER ve KY 07 20 20 IL 20 10 10 [...] -0 -2 .0 IN 22 OP ti [place] 30 7- 8- 00 IC 14 ER [...] MA G MG CY TA BL ET [place] 68 12 12 00 10 3 CL [...] 9- 7- 00 IC 58 ER ve KY 07 20 20 IL 20 09 09 PH DUARTE 1 AR HN 2. MA G 5 CY MG TA BL ET ME 00 10 12 01 30 30 CL 20 CO Ac TO 09 -0 -1 .0 IN 22 OP ti [place] 30 7- 7- 00 IC 14 ER [...] -0 -1 .0 IN 22 OP ti [place] 30 7- 9- 00 IC 14 ER [...] 9- 9- 00 IC 58 ER ve KY 07 20 20 IL 20 09 09 [...] 9- 2- 00 IC 58 ER ve KY 51 20 20 IL 20 09 09 [...] -0 -2 .0 IN 20 OP ti [place] 80 5- 2- 00 IC 39 ER [...] -0 -1 .0 IN 99 OP ti [place] 80 1- 0- 00 IC 48 ER [...] 9- 0- 00 IC 58 ER ve KY 51 20 20 IL 20 09 09 [...] -1 -3 .0 IN 59 OP ti [place] 80 7- 0- 00 IC 66 ER ve OL 03 20 20 OL 20 09 09 PH DUARTE 1 AR HN TA MA G RT CY RA TE 50 MG TA B LI 68 06 07 01 30 30 CL 19 CO Ac SI 18 -0 -3 .0 IN 52 OP ti NO 00 9- 0- 00 IC 58 ER ve KY 51 20 20 IL 20 09 09 [...] 00 10 5 CL 19 SO Ac KY 74 -1 -3 .0 IN 73 KA [...] BA ZA 70 09 09 PH BA [place] 6 AR TU IN MA ND E [...] 9- 8- 00 IC 58 ER ve KY 51 20 20 IL 20 09 09 [...] -1 -1 .0 IN 59 OP ti [place] 80 7- 8- 00 IC 66 ER [...] -1 -2 .0 IN 59 OP ti [place] 80 7- 1- 00 IC 66 ER [...] 3- 1- 00 IC 10 ER ve KY 51 20 20 IL 20 08 09 [...] 3- 6- 00 IC 10 ER ve KY 51 20 20 IL 20 08 09 PH DUARTE 1 AR HN 2. MA G 5 CY MG TA BL ET ME 00 01 03 02 30 30 CL 18 CO Ac TO 37 -1 -2 .0 IN 59 OP ti [place] 80 7- 6- 00 IC 66 ER [...] 3- 6- 00 IC 10 ER ve KY 51 20 20 IL 20 08 09 [...] -1 -2 .0 IN 59 OP ti [place] 80 7- 6- 00 IC 66 ER [...] -1 -3 .0 IN 59 OP ti [place] 80 7- 0- 00 IC 66 ER [...] 3- 0- 00 IC 10 ER ve KY 51 20 20 IL 20 08 09 PH DUARTE 1 AR HN 2. MA G 5 CY MG TA BL ET ME 00 07 01 05 30 30 CL 17 CO Ac TO 37 -2 -0 .0 IN 47 OP ti [place] 80 1- 1- 00 IC 62 ER [...] 3- 1- 00 IC 10 ER ve KY 51 20 20 IL 20 08 09 [...] -2 -0 .0 IN 47 OP ti [place] 80 1- 4- 00 IC 62 ER ve OL 03 20 20 OL 20 08 08 PH DUARTE 1 AR HN TA MA G RT CY RA TE 50 MG TA B LI 68 06 12 05 30 30 CL 17 CO Ac SI 18 -2 -0 .0 IN 29 OP ti NO 00 3- 4- 00 IC 67 ER ve KY 51 20 20 IL 20 08 08 [...] 3- 0- 00 IC 04 ER ve TX 21 20 20 DE 61 08 08 [...] -2 -2 .0 IN 47 t ti [place] 80 1- 3- 00 IC 62 Av [...] 3- 3- 00 IC 67 Av ve KY 51 20 20 ai IL 20 08 [...] -2 -2 .0 IN 47 t ti KY 80 1- 6- 00 IC 62 Av ve OL 03 20 20 ai OL 21 08 08 PH la 0 AR bl TA MA e RT CY RA TE 50 MG TA B LI 68 06 09 03 30 30 CL 17 No Ac SI 18 -2 -2 .0 IN 29 t ti NO 00 3- 6- 00 IC 67 Av ve KY 51 20 20 ai IL 20 08 [...] 3- 6- 00 IC 04 Av ve TX 21 20 20 ai DE 61 08 [...] 3- 8- 00 IC 67 Av ve KY 51 20 20 ai IL 20 08 08 PH la 1 AR bl 2. MA e 5 CY MG TA BL ET ME 00 07 08 01 30 30 CL 17 No Ac TO 37 -2 -2 .0 IN 47 t ti KY 80 1- 8- 00 IC 62 Av [...] 3- 1- 00 IC 67 Av ve KY 51 20 20 ai IL 20 08 08 PH la 1 AR bl 2. MA e 5 CY MG TA BL ET ME 00 07 08 00 30 30 CL 17 No Ac TO 37 -2 -0 .0 IN 47 t ti KY 80 1- 1- 00 IC 62 Av [...] -1 -0 .0 IN 27 t ti [place] 80 8- 3- 00 IC 55 Av ve OL 03 20 20 ai OL 21 08 08 PH la 0 AR bl TA MA e RT CY RA TE 50 MG TA B LI 68 06 07 00 30 30 CL 17 No Ac SI 18 -2 -0 .0 IN 29 t ti NO 00 3- 3- 00 IC 67 Av ve KY 51 20 20 ai IL 20 08 [...] -0 -2 .0 IN 82 t ti [place] 80 4- 2- 00 IC 48 Av [...] -0 -1 .0 IN 82 t ti [place] 80 4- 0- 00 IC 48 Av [...] -2 -0 .0 IN 59 t ti [place] 80 5- 7- 00 IC 65 Av [...] -2 -2 .0 IN 59 t ti KY 80 5- 6- 00 IC 65 Av [...] -1 -2 .0 IN 14 t ti [place] 80 1- 4- 00 IC 36 Av [...] 85%/>02 MEDICAL MEDICAL CONC AT EQUIPME EQUIPME [facility] FLW RATE FLOW 89097 [place] [facility] CYTOMETRY 7 MEDICAL SERV INTERPRET FOUNDATIO ATION N 16/> MARKERS WBC 51988 JUN BARAHONA ALKALINE 7 [facility] PHOSPHATA INC INC SE COUNT IMMUNOASS 85402 JUN BARAHONA AY NFCT 7 [facility] AGT ANTB INC INC QUAL/SEMI ADELFO 1 STEP BLOOD 21386 JUN BARAHONA COUNT 7 [facility] COMPLETE INC INC AUTO&AUTO DIFRNTL WBC JAK2 GENE 52774 JUN BAR[facility] ANALYSIS 7 [facility] INC INC [id number] HE VARIANT COMPREHEN 06111 JUN BAARHONA SIVE 7 [facility] METABOLIC INC INC PANEL NON-INVAS 70670 [place] [facility] ELVIRA 7 MEDICAL PHYSIOLOG IMAGING IC STUDY ASS EXTREMITY 3 LEVLS CYANOCOBA 37871 JUN BARAHONA MIHAELA 7 [facility] VITAMIN INC INC B-12 BLOOD 43523 JUN JUN COUNT 7 [facility] COMPLETE INC INC AUTO&[place] [address] JUN [facility] FOLIC 7 [facility] ACID INC INC SERUM O2 CONC 1 E1390 CRISTINO GREGG DEL PORT 7 HOME HOME 85%/>02 MEDICAL MEDICAL CONC AT E[facility] FLW RATE SEDIMENTA 37242 JUN BARAHONA TION RATE 7 [facility] RBC INC INC NON-AUTOM ATED C-REACTIV 38847 JUN BARAHONA E PROTEIN 7 [facility] INC INC RADEX 72968 [place] [facility] ANKLE 7 MEDICAL COMPLETE IMAGING MINIMUM 3 ASS VIEWS RADEX 25336 [place] [facility] FOOT 7 MEDICAL COMPLETE IMAGING MINIMUM 3 ASS VIEWS BASIC 23581 COMBINED COMBINED METABOLIC 7 PHYSICIAN PHYSICIAN [place] [address] COMBINED COMBINED THYROID 7 PHYSICIAN PHYSICIAN STIMULATI S LA S LA NG HORMONE TSH O2 CONC 1 E1390 CRISTINO CRISTINO [place] 7 HOME HOME 85%/>02 MEDICAL MEDICAL CONC AT EQUIPME EQUIPME [facility] FLW RATE O2 CONC 1 E1390 CRISTINO HARRELLRELL DEL [place] 7 HOME HOME 85%/>02 MEDICAL MEDICAL CONC AT E[facility] FLW RATE ECG 61369 [facility] JAMES ROUTINE 7 [facility] ECG MEDICAL W/LEAST G 12 LDS I&R ONLY NATRIURET 35717 [facility] IC [address] [place] [address] [place] [address] [facility] THYROID [address] [place] [address] STIMULATI NG HORMONE TSH INJECTION J2704 [facility] PROPOFOL [address] [place] [address] 10 MG UNCLASSIF J3490 [facility] IED DRUGS [address] [place] [address] [place] [address] [facility] MAGNESIUM [address] [place] [address] HOSPITAL COMPREHEN [address] METABOLIC PANEL ANES 69349 ANESTHESI KEYS INTEG SYS 7 A ELEC ASSOCIATE CONVERSIO S PSC N ARRHYTHMI CARDIOVER [address] ELECTIVE ARRHYTHMI A EXTERNAL ECG [address] ECG W/LEAST 12 LDS TRCG ONLY W/O I&R O2 CONC 1 E1390 CRISTINO GREGG [facility] 7 HOME HOME 85%/>02 MEDICAL MEDICAL CONC AT EQUIPME EQUIPME [facility] FLW RATE ECG 67438 [facility] LANIERNARENDRA OSBORNEOEN ROUTINE 7 [facility] ECG MEDICAL W/LEAST G 12 LDS W/I&R ECG 88550 JUN BARAHONA ROUTINE 7 [facility] ECG INC INC W/LEAST 12 LDS TRCG ONLY W/O I&R RADIOLOGI 41379 [place] OMAR C 7 MEDICAL EXAMINATI IMAGING ON CHEST ASS SINGLE VIEW FRONTAL AMB A0427 [facility] SERVICE 7 AMBULANCE AMBULANCE ALS SERVICE SERVICE EMERGENCY TRANSPORT LEVEL 1 [place] [address] JUN BARAHONA AMYLASE 7 [facility] INC INC COMPREHEN 13851 JUN BARAOHNA SIVE 7 [facility] METABOLIC INC INC PANEL GROUND A0425 [facility] MILEAGE 7 AMBULANCE AMBULANCE PER SERVICE SERVICE STATUTE MILE ECG 80238 JUN RUGGIERO ROUTINE 7 [facility] W/LEAST P 12 LDS [place] [address] JUN BARAHONA THYROXINE 7 [facility] TOTAL INC INC THYROID 47100 JUN BARAHONA HORM 7 [facility] UPTK/THYR INC [place] [address] JUN BARAHONA TROPONIN 7 [facility] QUANTITAT INC INC ELVIRA NATRIURET 63282 JUN BARAHONA IC 7 [facility] [place] [address] JUN BARAHONA LIPASE 7 [facility] INC INC CREATINE 63495 JUN BARAHONA KINASE 7 [facility] TOTAL INC INC FIBRIN 41434 JUN BARAHONA DGRADJ 7 [facility] PRODUCTS INC INC D-DIMER QUAL/SEMI ADELFO BLOOD 00958 JUN BARAHONA COUNT 7 [facility] COMPLETE INC INC AUTO&AUTO DIFRNTL WBC CREATINE 63694 JUN BARAHONA KINASE MB 7 [facility] FRACTION INC INC ONLY UNCLASSIF J3490 JUN BARAHONA IED DRUGS 7 [place] [address] JUN BARAHONA THYROID 7 [facility] STIMULATI INC INC NG HORMONE TSH ADLT SZD T4528 ACTIVSTYL ACTIVSTYL DISPBL 7 E E INCONT PROD UNDWEAR XTRA LG EA INCONTINE T4541 ACTIVSTYL ACTIVSTYL NCE 7 E E PRODUCT DISPOSABL E UNDPAD LARGE EA O2 CONC 1 E1390 CRISTINO GREGG [place] 7 HOME HOME 85%/>02 MEDICAL MEDICAL CONC AT [facility] FLW RATE CYANOCOBA 35201 COMBINED COMBINED MIHAELA 7 PHYSICIAN PHYSICIAN VITAMIN S LA S LA B-12 IRON 12698 COMBINED COMBINED BINDING 7 PHYSICIAN [place]YS[place] [address] COMBINED COMBINED IRON 7 PHYSICIAN PHYSICIAN S LA S LA COMPREHEN 97439 COMBINED COMBINED SIVE 7 PHYSICIAN PHYSICIAN METABOLIC S LA S LA PANEL O2 CONC 1 E1390 CRISTINO GREGG [place] 7 HOME HOME 85%/>02 MEDICAL MEDICAL CONC AT E[facility]IP[facility] FLW RATE GROUND A0425 [facility] MILEAGE 7 AMBULANCE AMBULANCE PER SERVICE SERVICE STATUTE MILE AMB A0427 [facility] SERVICE 7 AMBULANCE AMBULANCE ALS SERVICE SERV[place] [address] ZUHAIR FREITAS ABDOMEN & 7 MEDICAL PELVIS IMAGING W/[place] [address] ZUHAIR LI ABDOMEN & 6 MEDICAL PELVIS IMAGING W/O ASS CONTRAST MATERIAL COMPREHEN 00697 JUN JUN SIVE 6 [facility] [address] JUN BARAHONA LIPASE 6 [facility] INC INC BLOOD 89269 JUN BARAHONA COUNT 6 [facility] COMPLETE INC INC AUTO&AUTO DIFRNTL WBC IADNA-DNA 05365 JUN BARAHONA /RNA GI 6 [facility] PTHGN INC INC MULTIPLEX PROBE TQ 02-28 O2 CONC 1 E1390 CRISTINO CRISTINO [place] 6 HOME HOME 85%/>02 MEDICAL MEDICAL CONC AT EQUIPME EQUIPME [facility] FLW RATE ADLT SZD T4528 HOME ASSISTED CARE DISPBL 6 INCONT DELIVERED DELIVERED PROD INC INC UNDWEAR XTRA LG EA O2 CONC 1 E1390 CRISTINO CRISTINO [place] 6 HOME HOME 85%/>02 MEDICAL MEDICAL CONC AT EQUIPME EQUIPME [facility] FLW RATE ADLT SZD T4528 HOME ASSISTED CARE DISPBL 6 INCONT DELIVERED DELIVERED PROD INC INC UNDWEAR XTRA LG EA O2 CONC 1 E1390 CRISTINO CRISTINO [place] 6 HOME HOME 85%/>02 MEDICAL MEDICAL CONC AT EQUIPME EQUIPME [facility] FLW RATE ADLT SZD T4528 HOME CARE RICE JAM DISPBL 6 INCONT DELIVERED PROD INC UNDWEAR XTRA LG EA O2 CONC 1 E1390 CRISTINO CECILIOBOBYY DEL PORT 6 HOME PROSPER 85%/>02 MEDICAL CONC AT EQUIPME [facility] FLW RATE COMPREHEN 23496 COMBINED MCKEON SIVE 6 PHYSICIAN CASTRO METABOLIC S LA PANEL COLLECTIO 47799 FAMILY MARCO A N VENOUS 6 CARE MARZENA BLOOD ASSOCIATE VENIPUNCT S URE ADLT SZD T4528 HOME ASSISTED CARE DISPBL 6 INCONT DELIVERED DELIVERED PROD INC INC UNDWEAR XTRA LG EA O2 CONC 1 E1390 CRISTINO GREGG [facility] 6 HOME HOME 85%/>02 MEDICAL MEDICAL CONC AT [facility]MS [facility] FLW RATE MYOCARDIA 42062 JUN Boudreaux SPECT 6 [facility] MULTIPLE INC INC STUDIES TECHNETIU A9500 JUN Fisher TC-99M 6 [facility] SESTAMIBI INC INC DX PER STUDY DOSE CV STRS 38118 JUN RODGERS JR TST 6 [facility] XERS&/OR HOSPITAL RX CONT P ECG I&R ONLY CV STRS 03856 JUN BARAHONA TST 6 [facility] XERS&/OR INC INC RX CONT ECG TRCG ONLY CV STRS 36054 JUN ANA MARIA RAY TST 6 [facility] XERS&/OR HOSPITAL RX CONT P ECG W/O I&R WALKER E0143 [facility]GG [facility] 6 HOME HOME WHEELED MEDICAL MEDICAL ADJUSTABL [facility] E/FIXED HEIGHT ADD LW L2275 PROGRESSI JAMAR EXTRM 6 VE MOUNA VARUS/VUL PODIATRY MAURISIO MALISSA PLSTC MOD PADD/LN AFO L1970 PROGRESSI JAMAR PLASTIC 6 VE MOUNA WITH PODIATRY ANKLE JOINT CUSTOM FABRICATE D ADLT SZD T4528 HOME ASSISTED CARE DISPBL 6 INCONT DELIVERED DELIVERED PROD INC INC UNDWEAR XTRA LG EA ECG 42660 [facility] JAMES ROUTINE 6 [facility] ECG MEDICAL W/LEAST G 12 LDS W/I&R O2 CONC 1 E1390 CRISTINO GREGG [facility] 6 HOME HOME 85%/>02 MEDICAL MEDICAL CONC AT EQUIPME [facility] FLW RATE ADLT SZD T4528 HOME ASSISTED CARE DISPBL 6 INCONT DELIVERED DELIVERED PROD INC INC UNDWEAR XTRA LG EA O2 CONC 1 E1390 CRISTINO GREGG [facility] 6 HOME HOME 85%/>02 MEDICAL MEDICAL CONC AT [facility] FLW RATE [facility] LOWER 17181 [place] OMAR EXTREMITY 6 MEDICAL CHERELLE W/O IMAGING CONTRAST ASS MATERIAL ADLT SZD T4528 HOME ASSISTED CARE DISPBL 6 INCONT DELIVERED DELIVERED PROD INC INC UNDWEAR XTRA LG EA BLOOD 93350 JUN BARAHONA COUNT 6 [facility] COMPLETE INC INC AUTO&AUTO DIFRNTL WBC HEPATITIS 07309 JUN BARAHONA C 6 [facility] ANTIBODY INC INC HEPATITIS 23271 JUN Lam CORE 6 [facility] ANTIBODY INC INC HBCAB TOTAL HEPATITIS 47844 JUN Lam SURF 6 [facility] ANTIBODY INC INC HBSAB HEPATITIS 99439 JUN BARAHONA A 6 [facility] [place] [address] JUN BARAHONA HEPATITIS 6 [facility] B INC INC SURFACE ANTIGEN COLLECTIO 05044 JUN BARAHONA N VENOUS 6 [facility] BLOOD INC INC VENIPUNCT URE INJECTION J3301 FALLIS JAMAR 6 TRIAMCINO LONE ACETONIDE NOS 10 MG HEMOGLOBI 39350 JUN BARAHONA N 6 [facility] GLYCOSYLA INC INC GARRETT A1C ARTHROCEN 68920 FALLIS JAMAR TESIS 6 ASPIR&/IN J INTERM JT/BURS W/O US BASIC 18682 JUN BARAHONA METABOLIC 6 [facility] PANEL INC INC CALCIUM TOTAL RADIOLOGI 25388 [place] F[facility] ALL C 6 MEDICAL EXAMINATI IMAGING ON ANKLE ASS 2 VIEWS ARTHROCEN 01240 FALLIS JAMAR TESIS 6 ASPIR&/IN J INTERM JT/BURS W/O US INJECTION J3301 FALLIS JAMAR 6 TRIAMCINO LONE ACETONIDE NOS 10 MG ADLT SZD T4528 [facility] DISPBL 6 INCONT DELIVERED DELIVERED [employer] INC INC UNDWEAR XTRA LG EA RADIOLOGI 42234 [place] FREITAS ALL C 6 MEDICAL EXAMINATI IMAGING ON FOOT 2 ASS VIEWS GROUND A0425 [facility] MILEAGE 6 AMBULANCE AMBULANCE [place] [address] [place] OMAR HEAD/BRAI 6 MEDICAL CHERELLE N W/O IMAGING CONTRAST ASS MATERIAL AMB A0427 [facility] SERVICE 6 AMBULANCE AMBULANCE ALS SERVICE SERVICE [place] [address] [facility] ALL CERVICAL 6 MEDICAL SPINE W/O IMAGING CONTRAST ASS MATERIAL WALKING L4360 [facility]ED [facility] BOOT 6 TECHNOLOG TECHNOLOG PNEUMATC IES INC IES INC &/ [place] [address] FAMILY MARCO A 6 CARE MARZENA METATARSA ASSOCIATE L S FRACTURE W/O MANIPULAT ION AMB A0427 [facility] SERVICE 6 AMBULANCE AMBULANCE ALS SERVICE SERVICE EMERGENCY TRANSPORT LEVEL 1 GROUND A0425 [facility] PER SERVICE SERVICE STATUTE MILE ECG 31178 [facility] JAMES ROUTINE 6 [facility] ECG MEDICAL W/LEAST G 12 LDS W/I&R RADIOLOGI 98831 [place] FREITAS ALL C 6 MEDICAL EXAMINATI IMAGING ON CHEST ASS [place] FRONTAL COMPREHEN 78213 COMBINED COMBINED SIVE 6 PHYSICIAN PHYSICIAN METABOLIC S LA S LA PANEL CYANOCOBA 03291 COMBINED COMBINED MIHAELA 6 PHYSICIAN PHYSICIAN VITAMIN S LA S LA B-12 ECG 24093 JUN RUGGIERO ROUTINE 6 [facility] W/LEAST P 12 LDS I&R ONLY ECG 18680 JUN BARAHONA ROUTINE 6 [facility] ECG INC INC W/LEAST 12 LDS TRCG ONLY W/O I&R RADEX HIP 01055 JUN BARAHONA 5 [facility] UNILATERA INC INC L COMPLETE MINIMUM 2 VIEWS RADEX 46670 JUN BARAHONA ANKLE 5 [facility] COMPLETE INC INC MINIMUM 3 VIEWS RADEX 91998 JUN BARAHONA SPINE 5 [facility] LUMBOSACR INC INC AL MINIMUM 4 VIEWS GROUND A0425 [facility]ANCE AM[facility]ULANCE PER SERVICE SERVICE STATUTE MILE AMBULANCE A0429 [facility] SERVICE 5 AMBULANCE AMBULANCE BLS SERVICE SERVICE EMERGENCY TRANSPORT BASIC 93844 JUN BARAHONA METABOLIC 5 [facility] PANEL INC INC CALCIUM TOTAL ECG 44653 JUN BARAHONA ROUTINE 5 [facility] ECG INC INC W/LEAST 12 LDS TRCG ONLY W/O I&R ECG 36012 JUN RUGGIERO ROUTINE 5 [facility] W/LEAST P 12 LDS I&[place] [address] JUN BARAHONA MAGNESIUM 5 [facility] INC INC COLLECTIO 59554 JUN BARAHONA N VENOUS 5 [facility] BLOOD INC INC VENIPUNCT URE ECG 98971 [facility] ROUTINE 5 [facility] ECG MEDICAL W/LEAST G 12 LDS W/I&R HOSPITAL 45324 [facility] DISCHARGE 5 [facility] DAY MEDICAL MANAGEMEN G T 30 MIN/< ECG 98846 [facility] ROUTINE 5 [facility] ECG MEDICAL W/LEAST G 12 LDS I&R ONLY ECG 24123 [facility] ROUTINE 5 [facility] ECG MEDICAL W/LEAST G 12 LDS I&R ONLY SBSQ 14070 [facility] COMPLEX 5 [facility]/DAY MEDICAL 25 G MINUTES ECG 79679 [facility] ROUTINE 5 [facility] ECG MEDICAL MEDICAL W/LEAST G G 12 LDS W/I&R RADEX 79338 [facility] ALL SPINE 5 MEDICAL LUMBOSACR IMAGING AL ASS MINIMUM 4 VIEWS RADEX 31209 [facility] ALL SPINE 5 MEDICAL THORACIC IMAGING 2 VIEWS ASS RADIOLOGI 56283 [place] F[facility]IT[facility] ALL C 5 MEDICAL EXAMINATI IMAGING ON PELVIS ASS 1/2 VIEWS RADEX 86654 [facility] ALL SHOULDER 5 MEDICAL COMPLETE IMAGING MINIMUM [address] LOWER 74001 JUN BARAHONA EXTREMITY 5 [facility] W/O INC INC CONTRAST MATERIAL INJECTION J2785 JUN BARAHONA 5 [facility] REGADENOS INC INC ON 0.1 MG CV STRS 46194 JUN BARAHONA TST 5 [facility] XERS&/OR INC INC RX CONT ECG TRCG ONLY CV STRS 79718 JUN RUGGIERO TST 5 [facility] RX CONT P ECG I&R ONLY TECHNETIU A9500 JUN Fisher TC-99M 5 [facility] SESTAMIBI INC INC DX PER STUDY DOSE MYOCARDIA 35770 [facility] SPECT 5 MEDICAL CHERELLE MULTIPLE IMAGING STUDIES ASS XTRNL ECG 25684 JUN RUGGIERO 5 [facility] S RHYTHM P W/I&R UP TO 48 HRS EXTERNAL 63718 JUN BARAHONA ECG 5 [facility] SCANNING INC INC ANALYSIS REPORT XTRNL ECG 67665 JUN BARAHONA & 48 HR 5 [facility] RECORDING INC INC COMPREHEN 34477 COMBINED COMBINED SIVE 5 PHYSICIAN PHYSICIAN METABOLIC S LA S LA PANEL ECG 73503 JUN BARAHONA ROUTINE 5 [facility] ECG INC INC W/LEAST 12 LDS TRCG ONLY W/O I&R ECG 42206 JUN RODGERS JR ROUTINE 5 [facility] W/LEAST P 12 LDS I&R ONLY HEMOGLOBI 37895 FAMILY MARCO A N 5 CARE [facility] GLYCOSYLA ASSOCIATE GARRETT A1C S COLLECTIO 12062 FAMILY [facility]CO A N VENOUS 5 CARE [facility] BLOOD ASSOCIATE VENIPUNCT S URE BASIC 14300 COMBINED COMBINED METABOLIC 5 PHYSICIAN PHYSICIAN PANEL S LA S LA CALCIUM TOTAL ECG 13392 JUN BARAHONA ROUTINE 5 [facility] ECG INC INC W/LEAST 12 LDS TRCG ONLY W/O I&R RADIOLOGI 79175 [place] OMAR C EXAM 5 [facility] CHEST 2 IMAGING VIEWS ASS FRONTAL&L ATERAL ECG 93633 JUN RUGGIERO ROUTINE 5 [facility] W/LEAST P 12 LDS I&R ONLY GROUND A0425 [facility] PER SERVICE SERVICE STATUTE MILE AMBULANCE A0429 [facility] SERVICE 5 AMBULANCE AMBULANCE BLS SERVICE SERVICE [facility] 91198 [facility] CL[facility]IS[facility] DISCHARGE 4 [facility] DAY MEDICAL MANAGEMEN G T 30 MIN/< DUPLEX 81521 [facility] SCAN 4 [facility] EXTRACRAN MEDICAL IAL ART G COMPL BI STUDY DUP-SCAN 01544 DIANNE BRIGGS THO XTR VEINS 4 NE [facility] COMPLETE MEDICAL G BILATERAL STUDY CATH PLMT 36933 DIANNE WANG L HRT & 4 NE [facility] NAFISA ARTS MEDICAL W/NJX & G ANGIO IMG S&I PRQ 03047 DIANNE WANG TRLUML 4 NE [facility] NAFISA CORONARY MEDICAL ANGIOPLAS G TY ONE ART/BRANC H ECG 16749 DIANNE BRIGGS THO ROUTINE 4 NE [facility] ECG MEDICAL W/LEAST G 12 LDS I&R ONLY ECHO 46175 DIANNE ROMO TTHRC R-T 4 NE [facility] KATY 2D MEDICAL W/WOM-MOD G E COMPL SPEC&COLR D PROCEDURE 0040 [facility] ON [address] [place] [address] SINGLE VESSEL PERQ 0066 [facility] TRANSLUMI [address] [place] [address] NAL CORONARY ANGIOPLAS TY PTCA ANGIOCARD 8853 [facility] IOGRAPHY [address] [place] [address] [facility] STRUCTURE S LEFT [address] CARDIAC CATHETERI ZATION CORONARY 8856 [facility] ARTERIOGR [address] [place] [address] APHY USING TWO CATHETERS INITIAL [address] LIS CARE/DAY MEDICAL 70 G MINUTES AMBULANCE A0429 [facility] SERVICE 4 AMBULANCE AMBULANCE BLS SERVICE SERVICE EMERGENCY TRANSPORT GROUND A0425 [facility] [place] [address] ZUHAIR BEINEKE CERVICAL 4 MEDICAL PARKER SPINE W/O IMAGING CONTRAST ASS MATERIAL AMB A0427 [facility] SERVICE 4 AMBULANCE AMBULANCE ALS SERVICE SERVICE [place] [address] ZUHAIR BEINEKE ABDOMEN & 4 MEDICAL PARKER PELVIS IMAGING W/[place] [address] ZUHAIR BEINEKE HEAD/BRAI 4 MEDICAL PARKER N W/O IMAGING CONTRAST ASS MATERIAL RADIOLOGI 91083 [facility] OMAR C EXAM 4 MEDICAL CHERELLE CHEST 2 IMAGING VIEWS ASS FRONTAL&L ATERAL ECG 01784 [facility] CHESTER THO ROUTINE 4 [facility] ECG MEDICAL W/LEAST G 12 LDS I&R ONLY CT LUMBAR 53646 ZUHAIR CARTERINEKE SPINE 4 MEDICAL PARKER W/[place] [address] ZUHAIR LI HEAD/BRAI 4 MEDICAL PARKER N W/O IMAGING CONTRAST ASS MATERIAL AMB A0427 [facility] SERVICE 4 AMBULANCE AMBULANCE ALS SERVICE SERVICE [place] [address] ZUHAIR LI CERVICAL 4 MEDICAL PARKER SPINE W/O IMAGING CONTRAST ASS MATERIAL GROUND A0425 [employer] MILEAGE 4 AMBULANCE AMBULANCE PER SERVICE SERVICE STATUTE MILE GROUND A0425 [employer] MILEAGE 4 AMBULANCE AMBULANCE PER SERVICE SERVICE STATUTE MILE AMB A0427 [employer] SERVICE 4 AMBULANCE AMBULANCE ALS SERVICE SERVICE [place] [address] ZUHAIR CHATMANUTCHER HEAD/BRAI 4 MEDICAL CHERELLE N W/O IMAGING CONTRAST ASS MATERIAL RADIOLOGI 94243 ZUHAIR OMAR C 4 MEDICAL CHERELLE EXAMINATI IMAGING ON CHEST ASS SINGLE VIEW FRONTAL RADIOLOGI 71667 ZUHAIR OMAR C EXAM 4 MEDICAL CHERELLE CHEST 2 IMAGING VIEWS ASS FRONTAL&L ATERAL O2 CONC 1 E1390 CRISTINO CRISTINO DEL PORT 4 HOME HOME 85%/>02 MEDICAL MEDICAL CONC AT EQUIPME EQUIPME PRSC [place] O2 CONC 1 E1390 CRISTINO CRISTINO DEL [place] 4 HOME HOME 85%/>02 MEDICAL MEDICAL CONC AT EQUIPME EQUIPMS PRS [place] RADIOLOGI 69373 ZUHAIR OMAR C 4 MEDICAL CHERELLE EXAMINATI IMAGING ON KNEE 3 ASS VIEWS KNEE L1830 [employer] ORTHOSIS 4 IMMOBLIZE R CANVAS LONGTUDNL PREFAB RADIOLOGI 76118 ZUHAIR OMAR C 4 MEDICAL CHERELLE EXAMINATI IMAGING ON PELVIS ASS 1/2 VIEWS RADEX HIP 70205 ZUHAIR OMAR 4 MEDICAL CHERELLE UNILATERA IMAGING L ASS COMPLETE MINIMUM 2 VIEWS GROUND A0425 [facility] MILEAGE 4 AMBULANCE AMBULANCE PER SERVICE SERVICE STATUTE MILE AMBULANCE A0429 [facility] SERVICE 4 AMBULANCE AMBULANCE BLS SERVICE SERVICE EMERGENCY TRANSPORT BLOOD 21034 FAMILY FAMILY COUNT 4 CARE CARE COMPLETE ASSOCIATE ASSOCIATE AUTO&AUTO S S DIFRNTL WBC O2 CONC 1 E1390 CRISTINO CRISTINO DEL [place] 4 HOME HOME 85%/>02 MEDICAL MEDICAL CONC AT EQUIPME EQUIPME [facility] [place] [address] ZUHAIR OMAR HEAD/BRAI 4 MEDICAL CHERELLE N W/O IMAGING CONTRAST ASS MATERIAL O2 CONC 1 E1390 CRISTINO GREGG DEL [place] 4 HOME HOME 85%/>02 MEDICAL MEDICAL CONC AT EQUIPME EQUIPME [facility] [place] O2 CONC 1 E1390 CRISTINO GREGG DEL [place] 4 HOME HOME 85%/>02 MEDICAL MEDICAL CONC AT EQUIPME EQUIPME [facility] [place] AMBULANCE A0429 [facility] SERVICE 4 AMBULANCE AMBULANCE BLS SERVICE SERVICE EMERGENCY TRANSPORT GROUND A0425 [facility] MILEAGE 4 AMBULANCE AMBULANCE PER SERVICE SERVICE STATUTE MILE O2 CONC 1 E1390 CRISTINO CRISTINO [place] 4 HOME HOME 85%/>02 MEDICAL MEDICAL CONC AT EQUIPME EQUIPME [facility] [place] GROUND A0425 [facility] MILEAGE 4 AMBULANCE AMBULANCE PER SERVICE SERVICE STATUTE MILE AMBULANCE A0429 [facility] SERVICE 4 AMBULANCE AMBULANCE BLS SERVICE SERVICE EMERGENCY TRANSPORT PRTBLE E0431 MEY MATHIAS GASEOUS 4 HOSP HOSP O2 SYS EQUIP EQUIP RENT; FLWMTR HUMIDFR&M ASK AMBULANCE A0429 [facility] SERVICE 4 AMBULANCE AMBULANCE BLS SERVICE SERVICE EMERGENCY TRANSPORT GROUND A0425 [facility] MILEAGE 4 AMBULANCE AMBULANCE [place] [address] OMAR OMAR HEAD/BRAI 4 CHERELLE CHERELLE N W/O CONTRAST MATERIAL O2 CONC 1 E1390 MEY MATHIAS [place] 4 HOSP HOSP 85%/>02 EQUIP EQUIP CONC AT [facility] [place] PRTBLE E0431 MEY MATHIAS GASEOUS 4 HOSP HOSP O2 SYS EQUIP EQUIP RENT; FLWMTR HUMIDFR&M ASK O2 CONC 1 E1390 MEY MATHIAS [place] 4 HOSP HOSP 85%/>02 EQUIP EQUIP CONC AT PRS [place] GROUND A0425 [facility] MILEAGE 4 AMBULANCE AMBULANCE PER SERVICE SERVICE STATUTE MILE AMBULANCE A0429 [facility] SERVICE 4 AMBULANCE AMBULANCE BLS SERVICE SERVICE EMERGENCY TRANSPORT RADIOLOGI 56813 OMAR OMAR C 4 CHERELLE CHERELLE EXAMINATI ON CHEST SINGLE VIEW FRONTAL PRTBLE E0431 WEIIRA WEIIRA GASEOUS 3 HOSP HOSP O2 SYS EQUIP EQUIP RENT; FLWMTR HUMIDFR&M ASK O2 CONC 1 E1390 MEY MATHIAS [place] 3 HOSP HOSP 85%/>02 EQUIP EQUIP CONC AT [facility] [place] PRTBLE E0431 WEIIRA WEIIRA GASEOUS [...] EQUIP CONC AT PRS [place] ECHO 94047 [facility]UN [facility] 2D INC INC W/WOM-MOD E COMPL SPEC&COLR D INJECTION J2785 JUN BARAHONA 3 [facility] REGADENOS INC INC ON 0.1 MG MYOCARDIA 35402 OMAR OMAR L SPECT 3 CHERELLE CHERELLE SINGLE STUDY AT REST OR STRESS CV STRS 88397 JUN BARAHONA TST 3 MEM [facility] XERS&/OR INC INC RX CONT ECG TRCG ONLY CV STRS 02097 ANA MARIA RODGERS JR TST 3 DWI DWI XERS&/OR RX CONT ECG I&R ONLY TECHNETIU A9500 JUN BARAHONA M TC-99M 3 MEM [facility]OS[facility] SESTAMIBI INC INC DX PER STUDY DOSE PRTBLE E0431 MEY MATHIAS GASEOUS 3 HOSP HOSP O2 SYS EQUIP EQUIP RENT; FLWMTR HUMIDFR&[place] [address] OMAR OMAR HEAD/BRAI 3 CHERELLE CHERELLE N W/O CONTRAST MATERIAL O2 CONC 1 E1390 MEY MATHIAS [place] 3 HOSP HOSP 85%/>02 EQUIP EQUIP CONC AT PRSC [place] RADEX 32789 JUN BARAHONA SPINE 3 MEM HOS[facility] MEM HOSP LUMBOSACR INC INC AL MINIMUM 4 VIEWS RADEX 05797 OMAR OMAR SPINE 3 CHERELLE CHERELLE LUMBOSACR AL 2/3 VIEWS RADEX 44171 OMAR OMAR SPINE 3 CHERELLE CHERELLE CERVICAL 2 OR 3 VIEWS RADEX 09457 JUN BARAHONA SPINE 3 MEM [facility] THORACIC INC INC 3 VIEWS RADIOLOGI 61921 JUN BARAHONA C 3 [facility] EXAMINATI INC INC ON PELVIS 1/2 VIEWS RADEX 96980 JUN ROBERTSON SPINE 3 MEM [facility] CERVICAL INC INC 4 OR 5 VIEWS THERAPEUT 52856 JUN BARAHONA IC 3 MEM HOSP MEM [...] EQUIP EQUIP RENT; FLWMTR HUMIDFR&M ASK SPMTRY 46040 JUN BARAHONA W/VC 3 MEM [facility] EXPIRATOR INC INC Y CLAUDIA W/WO MXML VOL VNTJ O2 CONC 1 E1390 MEY MATHIAS [place] 3 HOSP HOSP 85%/>02 EQUIP EQUIP CONC AT [facility] [place] PRTBLE E0431 WEIIRA MEY GASEOUS 3 HOSP HOSP O2 SYS EQUIP EQUIP RENT; FLWFLR HUMIDFR&M ASK CT THORAX 65000 OMAR OMAR 3 CHERELLE CHERELLE W/CONTRAS T MATERIAL LOCM Q9967 JUN BARAHONA 300-399 3 MEM H[facility] MG/ML INC INC IODINE CONCENTRA TION PER ML 3D 59647 JUN BARAHONA RENDERING 3 [facility] INC INC W/INTERP& POSTPROC DIFF WORK STATION O2 CONC 1 E1390 MEY MATHIAS [place] 3 HOSP HOSP 85%/>02 EQUIP EQUIP CONC AT [facility] [place] COMPREHEN 42178 COMBINED COMBINED SIVE 3 PHYSICIAN PHYSICIAN METABOLIC S LA S LA PANEL PRTBLE E0431 MEY MATHIAS GASEOUS 3 HOSP HOSP O2 SYS EQUIP EQUIP RENT; [facility] HUMIDFR&M ASK O2 CONC 1 E1390 MEY MATHIAS DEL [place] 3 HOSP HOSP 85%/>02 EQUIP EQUIP CONC AT [facility] [place] ECG 07391 JUN BARAHONA ROUTINE 3 MEM HOSP MEM [...] HOSP HOSP 85%/>02 EQUIP EQUIP CONC AT [facility] [place] [address] JUN BARAHONA TROPONIN 2 [facility] QUANTITAT INC INC ELVIRA CREATINE 93935 JUN BARAHONA KINASE 2 [facility] TOTAL INC INC ECG 62296 BAHMAN RUGGIERO ROUTINE 2 CHANEL CHANEL ECG W/LEAST 12 LDS I&R ONLY BLOOD 72278 JUN BARAHONA COUNT 2 [facility] COMPLETE INC INC AUTO&AUTO DIFRNTL WBC CREATINE 26080 JUN BARAHONA KINASE MB 2 MEM [facility] FRACTION INC INC ONLY BASIC 21291 JUN BARAHONA METABOLIC 2 [facility] PANEL INC INC CALCIUM TOTAL GROUND A0425 [facility] MILEAGE 2 AMBULANCE AMBULANCE PER SERVICE SERVICE STATUTE MILE ECG 30676 JUN MILLENIUM ROUTINE 2 MEM [facility]OS[facility] ECG INC LABORATOR W/LEAST IES OF CA 12 LDS TRCG ONLY W/O I&R RADIOLOGI 66182 OMAR CHATMANUTCHER C 2 CHERELLE CHERELLE EXAMINATI ON CHEST SINGLE VIEW FRONTAL AMB A0427 [facility] SERVICE 2 AMBULANCE AMBULANCE ALS SERVICE SERVICE EMERGENCY TRANSPORT LEVEL 1 [place] [address] JUN BARAHONA FREE 2 [facility] [place] [address] JUN BARAHONA THYROID 2 [facility] STIMULATI [place] [address] JUN BARAHONA TRIIODOTH 2 [facility] YRONINE INC INC T3 TOTAL TT3 CYANOCOBA 50936 COMBINED COMBINED MIHAELA 2 PHYSICIAN PHYSICIAN VITAMIN S LA S LA B-12 [place] [address] COMBINED COMBINED THYROID 2 PHYSICIAN PHYSICIAN STIMULATI S LA S LA NG HORMONE TSH CULTURE 32017 COMBINED COMBINED BACTERIAL 2 PHYSICIAN PHYSICIAN S LA S LA QUANTTATI VE COLONY COUNT URINE 25 47734 COMBINED COMBINED HYDROXY 2 PHYSICIAN PHYSICIAN INCLUDES S LA S LA FRACTIONS IF PERFORMED COMPREHEN 22421 COMBINED COMBINED SIVE 2 PHYSICIAN PHYSICIAN METABOLIC S LA S LA PANEL PRTBLE E0431 MEY MATHIAS GASEOUS 2 HOSP HOSP O2 SYS EQUIP EQUIP RENT; FLWMTR HUMIDFR&M ASK O2 CONC 1 E1390 WEIIRA WEIIRA [place] 2 HOSP HOSP 85%/>02 EQUIP EQUIP CONC AT [facility] [place] GROUND A0425 [facility] AM[facility]ULANCE PER SERVICE SERVICE STATUTE MILE AMBULANCE A0429 [facility] SERVICE 2 AMBULANCE AMBULANCE BLS SERVICE SERVICE EMERGENCY TRANSPORT PRTBLE E0431 WEIIRA WEIIRA GASEOUS 2 HOSP HOSP O2 SYS EQUIP EQUIP RENT; FLWMTR HUMIDFR&M ASK O2 CONC 1 E1390 MEY WEIIRA [place] 2 HOSP HOSP 85%/>02 EQUIP EQUIP CONC AT [facility] [place] PRTBLE E0431 WEIIRA WEIIRA GASEOUS 2 HOSP HOSP O2 SYS EQUIP EQUIP RENT; FLWMTR HUMIDFR&M ASK O2 CONC 1 E1390 WEIIRA WEIIRA [place] 2 HOSP HOSP 85%/>02 EQUIP EQUIP CONC AT [facility] [place] PRTBLE E0431 WEIIRA WEIIRA GASEOUS 2 HOSP HOSP O2 SYS EQUIP EQUIP RENT; FLWMTR HUMIDFR&M ASK GROUND A0425 [facility] 2 AMBULANCE AMBULANCE PER SERVICE SERVICE STATUTE MILE AMB A0427 [facility] SERVICE 2 AMBULANCE AMBULANCE ALS SERVICE SERVICE EMERGENCY TRANSPORT LEVEL 1 O2 CONC 1 E1390 MEY MATHIAS [place] 2 HOSP HOSP 85%/>02 EQUIP EQUIP CONC AT [facility] [place] [address] JUN BARAHONA LIPASE 2 [facility] INC INC 3D 94293 JUN BARAHONA RENDERING 2 [facility] INC INC W/INTERP& POSTPROC DIFF WORK STATION BLOOD 50430 JUN BARAHONA COUNT 2 [facility] COMPLETE INC INC AUTO&[place] [address] JUN BARAHONA ABDOMEN & 2 [facility] PELVIS INC INC W/O CONTRAST MATERIAL AMBULANCE A0429 [facility] SERVICE 2 AMBULANCE AMBULANCE BLS SERVICE SERVICE EMERGENCY TRANSPORT GROUND A0425 [facility]UL[facility] PER SERVICE SERVICE STATUTE MILE COMPREHEN 42315 JUN BARAHONA SIVE 2 [facility] METABOLIC INC INC PANEL PRTBLE E0431 MYE MATHIAS GASEOUS 2 HOSP HOSP O2 SYS EQUIP EQUIP RENT; FLWMTR HUMIDFR&M ASK O2 CONC 1 E1390 MEY MATHIAS [place] 2 HOSP HOSP 85%/>02 EQUIP EQUIP CONC AT PRSC [place] PRTBLE E0431 ROMAIN HOYOS GASEOUS 2 HOME HOME O2 SYS MEDICAL MEDICAL RENT; EQUIP EQUIP FLWMTR HUMIDFR&M ASK COMPREHEN 92953 JUN BARAHONA SIVE 2 [facility] METABOLIC INC INC PANEL URNLS DIP 31666 JUN BARAHONA 2 [facility] STICK/TAB INC INC LET REAGENT AUTO MICROSCOP Y ECG 05090 JUN BARAHONA ROUTINE 2 [facility] ECG INC INC W/LEAST 12 LDS TRCG ONLY W/O I&R CREATINE 93248 JUN BARAHONA KINASE 2 [facility] [place] [address] JUN BARAHONA TROPONIN 2 [facility] QUANTITAT INC INC ELVIRA ECG 36675 JUN JUN ROUTINE 2 [facility] W/LEAST P P 12 LDS I&R ONLY RHYTHM 12106 JUN JUN ECG 1-3 2 [facility] LEADS INC INC TRACING ONLY W/O I&R BLOOD 32085 JUNDANITZA BARAHONA COUNT 2 [facility] COMPLETE INC INC AUTO&AUTO DIFRNTL WBC CREATINE 35292 JUN JUN KINASE MB 2 [facility] FRACTION INC INC ONLY [...] EQUIP EQUIP PRSC [place] R[place] URNLS DIP 40568 JUN BARAHONA 2 [facility] STICK/TAB INC INC LET REAGENT AUTO MICROSCOP Y PRTBLE E0431 ROMAIN HOYOS GASEOUS 2 HOME HOME O2 SYS MEDICAL MEDICAL RENT; EQUIP EQUIP FLWMTR HUMIDFR&M ASK O2 CONC 1 E1390 ROMAIN HOYOS [place] 2 HOME HOME 85%/>02 MEDICAL MEDICAL CONC AT EQUIP EQUIP [facility] [place] PRTBLE E0431 ROMAIN HOYOS GASEOUS 2 HOME HOME O2 SYS MEDICAL MEDICAL RENT; EQUIP EQUIP FLWMTR HUMIDFR&M ASK O2 CONC 1 E1390 ROMAIN HOYOS [place] 2 HOME HOME 85%/>02 MEDICAL MEDICAL CONC AT EQUIP EQUIP [facility] [place] GROUND A0425 [facility]ULANCE AMBULANCE PER SERVICE SERVICE STATUTE MILE RADIOLOGI 65017 JUN ROBERTSDANITZA Machado 2 [facility] EXAMINATI INC INC ON PELVIS 1/2 VIEWS AMB A0427 [facility] SERVICE 2 AMBULANCE AMBULANCE ALS SERVICE SERVICE EMERGENCY TRANSPORT LEVEL 1 RADEX HIP 75208 JUN BARAHONA 2 [facility] UNILATERA INC INC L COMPLETE MINIMUM 2 VIEWS PRTBLE E0431 ROMAIN HOYOS GASEOUS 2 HOME HOME O2 SYS MEDICAL MEDICAL RENT; EQUIP EQUIP FLWMTR HUMIDFR&M ASK O2 CONC 1 E1390 ROMAIN HOYOS [place] 2 HOME HOME 85%/>02 MEDICAL MEDICAL CONC AT EQUIP EQUIP [facility] [place] NONINVASI 28094 MARCO A Faustin VE 2 G G EAR/PULSE OXIMETRY SINGLE DETER BLOOD 21402 MARCO A Faustin COUNT 2 G G COMPLETE AUTO&AUTO DIFRNTL WBC URNLS DIP 65652 MARCO A Faustin 2 G G STICK/TAB [...] AT EQUIP EQUIP PRSC [place] RADIOLOGI 92950 [place] OMAR C 1 MEDICAL CHERELLE EXAMINATI IMAGING ON PELVIS ASS 1/2 VIEWS RADEX 33881 [place] OMAR SPINE 1 MEDICAL CHERELLE CERVICAL IMAGING 4 OR 5 ASS VIEWS RADEX 82939 [facility] MEDICAL CHERELLE LUMBOSACR IMAGING AL ASS MINIMUM 4 VIEWS RADEX 67949 JUN ROBERTSON SPINE 1 [facility] CERVICAL INC INC 6 OR MORE VIEWS GROUND A0425 [facility]ULANCE AMBULANCE PER SERVICE SERVICE STATUTE MILE AMBULANCE A0429 [facility] SERVICE 1 AMBULANCE AMBULANCE S SERVICE SERVICE EMERGENCY TRANSPORT AMBULANCE A0429 [facility] SERVICE 1 AMBULANCE AMBULANCE S SERVICE SERVICE EMERGENCY TRANSPORT GROUND A0425 [facility] MILEAGE 1 AMBULANCE AMBULANCE PER SERVICE SERVICE STATUTE MILE PRTBLE E0431 ROMAIN HOYOS GASEOUS 1 HOME HOME O2 SYS MEDICAL MEDICAL RENT; EQUIP EQUIP [facility] HUMIDFR&M ASK COLSC FLX 26774 C LACI DENNY W/RMVL 1 DENISHA PALOMARES OF TUMOR PSC POLYP LESION SNARE TQ ESOPHAGOG 61512 C LACI DENNY ASTRODUOD 1 DENISHA PALOMARES ENOSCOPY [facility] [place] [address] JUN BARAHONA INFUSION 1 [facility] THERAPY INC INC PROPHYLAX IS/DX EA HOUR ENDOSCOPI 4542 JUN BARAHONA C 1 [facility] POLYPECTO INC [place] [address] [facility] [address] SURG 1 LG & [facility] GROSS&BULL ROSCOPIC EXAM OTHER 4513 JUN BARAHONA ENDOSCOPY 1 [facility] OF SMALL INC INC INTESTINE O2 CONC 1 E1390 ROMAIN HOYOS DEL [place] 1 HOME HOME 85%/>02 MEDICAL MEDICAL CONC AT EQUIP EQUIP PRS [place] BLOOD 83146 JUN BARAHONA COUNT 1 [facility] COMPLETE INC INC AUTO&AUTO DIFRNTL WBC COMPREHEN 49476 JUN BARAHONA SIVE 1 [facility] METABOLIC INC INC PANEL URNLS DIP 50321 JUN BARAHONA 1 [facility] STICK/TAB INC INC LET REAGENT AUTO MICROSCOP Y GROUND A0425 [facility] MILEAGE 1 AMBULANCE AMBULANCE PER SERVICE SERVICE STATUTE MILE AMBULANCE A0429 [facility] SERVICE 1 AMBULANCE AMBULANCE S SERVICE SERVICE EMERGENCY TRANSPORT BLOOD 06622 FAMILY FAMILY COUNT 1 CARE CARE COMPLETE [...] RENT; EQUIP EQUIP FLWMTR HUMIDFR&M ASK LIPID 02378 FAMILY MARCO A J PANEL 1 WORD PROCESSING OPERATOR S TRANSFERA 88054 FAMILY MARCO A J SE 1 CARE ASPARTATE ASSOCIATE AMINO S AST SGOT TRANSFERA 51445 FAMILY EASLEY SE 1 CARE HOMAR ALANINE [...] AT EQUIP EQUIP PRSC FLW RATE 3D 05042 JUN BARAHONA RENDERING 1 [facility] INC INC W/INTERP& POSTPROC DIFF WORK STATION ECHO 97261 [facility] 1 PHYSICIAN NAFISA 2D S GROUP W/WOM-MOD E COMPL SPEC&COLR D CT LUMBAR 03094 [place] OMAR SPINE 1 MEDICAL CHERELLE W/O IMAGING CONTRAST ASS MATERIAL RADIOLOGI 97139 [facility] LANIERRosette NELSON C EXAM 0 MEDICAL CHERELLE CHEST 2 IMAGING VIEWS ASS FRONTAL&L ATERAL URNLS DIP 59962 JUN ROBERTSON 0 [facility] STICK/TAB INC INC LET REAGENT AUTO MICROSCOP Y GROUND A0425 [facility] MILEAGE 0 AMBULANCE AMBULANCE PER SERVICE SERVICE STATUTE MILE AMBULANCE A0429 [facility] SERVICE 0 AMBULANCE AMBULANCE BLS SERVICE SERVICE EMERGENCY TRANSPORT BASIC 90660 JUN BARAHONA METABOLIC 0 [facility] PANEL INC INC CALCIUM TOTAL CREATINE 73943 JUN BARAHONA KINASE 0 [facility] [place] [address] JUN BARAHONA TROPONIN 0 [facility] QUANTITAT INC INC ELVIRA NATRIURET 14003 JUN BARAHONA IC 0 [facility] PEPTIDE INC INC BLOOD 18273 JUN BARAHONA COUNT 0 [facility] COMPLETE INC INC AUTO&AUTO DIFRNTL WBC CREATINE 20491 JUN BARAHONA KINASE MB 0 [facility] HOS[facility] [...] AT EQUIP EQUIP PRSC [place] RADEX 97511 [facility] AVILEZ HAND 0 MEDICAL AMILCAR MINIMUM 3 IMAGING VIEWS ASS AMBULANCE A0429 [facility] SERVICE 0 AMBULANCE AMBULANCE BLS SERVICE SERVICE EMERGENCY TRANSPORT GROUND A0425 [facility] MILEAGE 0 AMBULANCE AMBULANCE PER SERVICE SERVICE [...] AT EQUIPMENT EQUIPMENT PRSC FLW RATE BLOOD 31773 FAMILY MELO, COUNT 0 CARE Lior ESPINOZA COMPLETE ASSOCIATE AUTO&AUTO S DIFRNTL WBC GLUCOSE 36999 FAMILY MELO, POST 0 CARE Lior ESPINOZA [...] AT EQUIPMENT EQUIPMENT PRSC [place] COMPREHEN 48066 COMBINED COMBINED SIVE 0 PHYSICIAN PHYSICIAN METABOLIC [...] AT EQUIPMENT EQUIPMENT PRSC [place] IAADI 08228 JUN BARAHONA INFLUENZA 9 [facility] B VIRUS INC INC IAADI 61817 JUN BARAHONA INFFLUENZ 9 [facility] A A VIRUS INC INC CULTURE 57683 JUN BARAHONA BACTERIAL 9 [facility] INC INC QUANTTATI VE COLONY COUNT URINE URNLS DIP 97978 JUN BARAHONA 9 [facility] STICK/TAB INC INC LET REAGENT AUTO MICROSCOP Y O2 CONC 1 E1390 ROMAIN HOYOS DEL PORT 9 HOME HOME 85%/>02 MEDICAL MEDICAL CONC AT EQUIPMENT EQUIPMENT PRSC [place]W R[place] O2 CONC 1 E1390 ROMAIN VENEGAS PORT 9 HOME HOME 85%/>02 MEDICAL MEDICAL CONC AT EQUIPMENT EQUIPMENT PRSC FLW RATE CUL BACT 28291 JUN BARAHONA XCPT 9 [facility] URINE INC INC BLOOD/STO OL AEROBIC ISOL SMR PRIM 30308 JUN BARAHONA SRC 9 [facility] GRAM/GIEM INC INC SA STAIN BCT FUNGI/CANDICE L RADIOLOGI 98097 JUN BARAHONA C EXAM 9 [facility] CHEST 2 INC INC VIEWS FRONTAL&L ATERAL O2 CONC 1 E1390 ROMAIN VENEGAS PORT 9 HOME HOME 85%/>02 MEDICAL MEDICAL CONC AT EQUIPMENT EQUIPMENT PRSC FLW RATE O2 CONC 1 E1390 ROMAIN VENEGAS PORT 9 HOME HOME 85%/>02 MEDICAL MEDICAL CONC AT EQUIPMENT EQUIPMENT PRSC FLW RATE RADIOLOGI 60007 Jeannette BRAVO 9 MEDICAL AMAURI EXAMINATI IMAGING ON KNEE 3 ASSOCIATE VIEWS S RADEX 71981 JUN BARAHONA ANKLE 9 [facility] COMPLETE INC INC MINIMUM 3 VIEWS RADEX HIP 59238 ZUHAIR NELSON 9 MEDICAL AMAURI UNILATERA IMAGING [...] AT EQUIPMENT EQUIPMENT PRSC FLW RATE CULTURE 14629 COMBINED COMBINED BACTERIAL 9 PHYSICIAN PHYSICIAN S LAB S LAB QUANTTATI VE COLONY COUNT URINE O2 CONC 1 E1390 ROMAIN HOYOS DEL PORT 9 HOME HOME 85%/>02 MEDICAL MEDICAL CONC AT EQUIPMENT EQUIPMENT PRSC FLW RATE O2 CONC 1 E1390 ROMAIN HOYOS DEL PORT 9 HOME HOME 85%/>02 MEDICAL MEDICAL CONC AT EQUIPMENT EQUIPMENT PRSC FLW RATE HEMOGLOBI 40762 COMBINED COMBINED N 9 PHYSICIAN PHYSICIAN GLYCOSYLA S LAB S LAB GARRETT A1C COMPREHEN 19905 COMBINED COMBINED SIVE 9 PHYSICIAN PHYSICIAN METABOLIC [...] MED T STRIPS EQUIP. EQUIP. HOME BLD [facility] GLU MON-50 LANCETS A4259 CRISTINO CRISTINO PER BOX 8 HOME MED HOME MED OF 100 [facility]IP. [facility] O2 CONC 1 E1390 ROMAIN HOYOS DEL PORT 8 HOME HOME 85%/>02 MEDICAL MEDICAL CONC AT EQUIPMENT EQUIPMENT PRSC FLW RATE CYSTO 89786 [place] MEDINA, BLADDER 8 H DANIE D W/URETERA UROLOGY L [facility] CATHETERI ZATION ECG 85127 ROBLES JUSTICE, ROUTINE 8 [facility] ECG CLINIC W/LEAST PSC 12 LDS I&R ONLY ANES 16682 ANESTHESI BINGCANG, TRANSURET 8 A B P HRAL ASSOCIATE W/URETHRO S, PSC CYSTOSCOP Y NOS THER 59807 JUN BARAHONA PROPH/DX 8 [facility] NJX INC INC SUBQ/IM BLOOD 34741 JUN BARAHONA COUNT 8 [facility] COMPLETE INC INC AUTO&AUTO DIFRNTL WBC ECG 59702 JUN BARNETT ROUTINE 8 [facility] W/LEAST PROF SERV 12 LDS I&[place] [address] JUN BARAHONA TROPONIN 8 [facility] QUANTITAT INC INC ELVIRA CREATINE 37584 JUN BARAHONA KINASE 8 [facility] TOTAL INC INC GROUND A0425 [facility] PER SERVICE SERVICE STATUTE MILE BASIC 89922 JUN BARAHONA METABOLIC 8 [facility] PANEL INC INC CALCIUM TOTAL CREATINE 48576 JUN BARAHONA KINASE MB 8 [facility] FRACTION INC INC ONLY AMB A0422 CARLEE BEJARANO OXYGEN&O2 8 AMBULANCE AMBULANCE SUPPLIES SERVICE SERVICE LIFE SUSTAININ G SITUATION AMB A0427 [facility] SERVICE 8 AMBULANCE AMBULANCE ALS SERVICE SERVICE EMERGENCY TRANSPORT LEVEL 1 ECG 81470 JUN BARAHONA ROUTINE 8 [facility] ECG INC INC W/LEAST 12 LDS TRCG ONLY W/O I&R RADIOLOGI 77169 [place] Jeannette AVILEZ 8 MEDICAL ALVIN Orozco EXAMINATI IMAGING ON CHEST ASSOCIATE SINGLE S VIEW FRONTAL CULTURE 12495 COMBINED COMBINED BACTERIAL 8 PHYSICIAN PHYSICIAN S [...] PNEUMATIC EQUIPMENT EQUIPMENT NEBULIZER DISPBL GROUND A0425 [facility] PER SERVICE SERVICE STATUTE MILE AMB A0427 [facility] SERVICE 8 AMBULANCE AMBULANCE ALS SERVICE SERVICE EMERGENCY TRANSPORT LEVEL 1 RADIOLOGI 32630 Jeannette BRAVO 8 MEDICAL AMAURI EXAMINATI IMAGING ON CHEST ASSOCIATE SINGLE S VIEW FRONTAL ECG 08908 NATHALIE RAYMOND 8 [facility] W/LEAST PROF SERV 12 LDS I&R [...] MED T STRIPS EQUIP. EQUIP. HOME D [facility] GLU MON-50 BRNCDILAT 89380 JUN BARNETT RSPSE 8 [facility] MAGALI PRE&POST- PROF SERV BRNCDILAT ADMN FUNCTIONA 53913 JUN BARAHONA L 8 [facility] RESIDUAL INC INC CAPACITY OR RESIDUAL VOLUME DETER 01567 JUN BARAHONA MALDISTRI 8 [facility] BJ OF INC INC INSPIRED GAS N WSHOT CURVE DETER 95948 JUN BARAHONA AIRWY 8 [facility] CLOSING INC INC VOL 1 BRTH TSTS PRESSURIZ 03670 JUN BARAHONA ED/NONPRE 8 [facility] SSURIZED INC INC INHALATIO N TREATMENT [...] AT EQUIPMENT EQUIPMENT PRSC FLW RATE DRUG 12579 JUN BARAHONA SCREEN 8 [facility] QUANTITAT INC INC ELVIRA DIGOXIN TOTAL COMPREHEN 66131 JUN BARAHONA SIVE 8 [facility] METABOLIC INC INC PANEL URNLS DIP 10359 JUN BARAHONA 8 [facility] STICK/TAB INC INC LET REAGENT AUTO MICROSCOP Y CREATINE 03501 JUN BARAHONA KINASE MB 8 [facility] FRACTION INC INC ONLY RADEX 16742 [place] OMAR, ABDOMEN 1 8 MEDICAL AMAURI IMAGING ANTEROPOS ASSOCIATE TERIOR S VIEW RADIOLOGI 12366 JUN BARAHONA C 8 [facility] EXAMINATI INC INC ON CHEST SINGLE VIEW FRONTAL ECG 89536 JUN BARAHONA ROUTINE 8 [facility] ECG INC INC W/LEAST 12 LDS TRCG ONLY W/O I&R BLOOD 71247 JUN BARAHONA COUNT 8 [facility] COMPLETE INC INC AUTO&AUTO DIFRNTL WBC CULTURE 14309 JUN BARAHONA BACTERIAL 8 [facility] INC INC [place] [address] JUN BARAHONA TROPONIN 8 [facility] QUANTITAT INC INC ELVIRA CREATINE [address] JUN BARAHONA KINASE 8 [facility] TOTAL INC INC RHYTHM 82782 JUN BARAHONA ECG 1-3 8 [facility] LEADS INC INC TRACING ONLY W/O I&R ECG 70822 JUN BARNETT ROUTINE 8 [facility] MAGALI F W/LEAST PROF SERV 12 LDS I&R ONLY O2 CONC 1 E1390 ROMAIN HOYOS DEL PORT 8 HOME HOME 85%/>02 MEDICAL MEDICAL CONC AT EQUIPMENT EQUIPMENT PRSC FLW RATE O2 CONC 1 E1390 CYNCARISA HOYOS DEL PORT 8 HOME HOME 85%/>02 MEDICAL MEDICAL CONC AT EQUIPMENT EQUIPMENT PRSC FLW RATE ECG 86843 JUN ROY, ROUTINE 8 [facility] W/LEAST PROF SERV 12 LDS I&R ONLY RADIOLOGI 92725 [place] Jeannette NELSON 8 MEDICAL AMAURI EXAMINATI IMAGING ON CHEST ASSOCIATE SINGLE S VIEW FRONTAL GROUND A0425 [facility] MILEAGE 8 AMBULANCE AMBULANCE PER SERVICE SERVICE STATUTE MILE AMB A0427 [facility] SERVICE 8 AMBULANCE AMBULANCE ALS SERVICE SERVICE EMERGENCY TRANSPORT LEVEL 1 L HRT 33499 ROBLES LI CATHETERI 8 [facility] ZATION [facility]IN[facility] [place] [address] ROBLES LI, C-CATHJ 8 MIKKI AMARAL F/SLCTV C CLINIC ANGRPH PSC I SI&R 35965 ROBLES LI, F/NJX PX 8 [facility] DURING [facility]IN[facility] C-CATHJ PSC VENTR&/AT R ANGRPH I SI&R 07331 ROBLES LI F/NJX PX 8 [facility] C-CATHJ PSC PULM&/OR SELECT ECG 09635 ROBLES LI ROUTINE 8 MIKKI AMARAL ECG CLINIC W/LEAST PSC 12 LDS I&R ONLY INJECTION 25924 ROBLES LI CARDIAC 8 MIKKI AMARAL CATHJ L CLINIC VENTR/L PSC ATR ANGIOGRAP H LANCETS A4259 CRISTINO GREGG PER BOX 8 HOME MED HOME MED OF [address] [facility] BLD GLU A4253 CRISTINO GREGG TEST/REAG 8 HOME MED HOME MED T STRIPS EQUIP. EQUIP. HOME D [facility] GLU MON-50 SMALL A7004 ROMAIN HOYOS VOLUME 8 HOME HOME NONFILTR MEDICAL MEDICAL PNEUMATIC EQUIPMENT EQUIPMENT NEBULIZER DISPBL ADMN SET A7003 CYNCARISA HOYOS SM VOL 8 HOME HOME NONFILTR MEDICAL MEDICAL PNEUMAT EQUIPMENT EQUIPMENT NEBULIZR DISPBL BLDR 01200 WILL COOKATIO 8 LTH DANIEJENNIFER Nicole SMPL UROLOGY [place]AVAGE PSC &/INSTLJ O2 CONC 1 E1390 ROMAIN HOYOS DEL PORT 8 HOME HOME 85%/>02 MEDICAL MEDICAL CONC AT EQUIPMENT EQUIPMENT PRSC FLW RATE BLDR 54102 COMMONWEA CAROL IRRIGATIO 8 LTH DANIE D N SMPL UROLOGY [place]AV[place] PSC &/INSTLJ BLDR 21331 MICHAEL MEDINA, IRRIGATIO 8 LTH DANIE D N SMPL UROLOGY [place]AV[place] PSC &/INSTLJ O2 CONC 1 E1390 ROMAIN HOYOS DEL PORT 8 HOME HOME 85%/>02 MEDICAL MEDICAL CONC AT EQUIPMENT EQUIPMENT PRSC FLW RATE URNLS DIP 79721 JUN BARAHONA 8 [facility] STICK/TAB INC INC LET REAGENT AUTO MICROSCOP Y LANCETS A4259 CRISTINO GREGG PER BOX 8 HOME MED HOME MED OF 100 [employer] [facility] BLD GLU A4253 CRISTINO GREGG TEST/REAG 8 HOME MED HOME MED T STRIPS EQUIP. EQUIP. HOME D [facility] GLU MON-50 SMALL A7004 ROMAIN HOYSO VOLUME 8 HOME HOME NONFILTR MEDICAL MEDICAL PNEUMATIC EQUIPMENT EQUIPMENT NEBULIZER DISPBL ADMN SET A7003 ROMAIN HOYOS SM VOL 8 HOME HOME NONFILTR MEDICAL MEDICAL PNEUMAT EQUIPMENT EQUIPMENT NEBULIZR DISPBL O2 CONC 1 E1390 ROMAIN HOYOS DEL PORT 8 HOME HOME 85%/>02 MEDICAL MEDICAL CONC AT EQUIPMENT EQUIPMENT PRSC FLW RATE Encounters Encounter Start End Date Code Location Performer Type Date OFFICE 17880 JUN FREDDY OUTPATIEN 7 7 [facility] 10 P MINUTES OFFICE 03582 JUN FREDDY OUTPATIEN 7 7 [facility] VISIT 5 HOSPITAL MINUTES P OFFICE 03929 JUN FREDDY OUTPATIEN 7 7 [facility] 10 P MINUTES HOSPITAL JUN - 7 7 [facility] INC T [facility]OSP[facility] JUN - 7 7 [facility] INC T HOSPITAL JUN - 7 7 [facility] INC T OFFICE 15449 JUN FREDDY OUTPATIEN 7 7 [facility] 20 HOSPITAL MINUTES P HOSPITAL JUN - 7 7 [facility] INC H[facility] [address] OUTPATI T [facility] 20251 [facility] 7 7 [facility] T [facility]ISIT MEDICAL 25 G MINUTES EMERGENCY 49959 JUN DEPT 7 7 [facility] VISIT INC HIGH SEVERITY& [facility] OUTPATIEN INC T OFFICE 61851 FAMILY TRU OUTPATIEN 6 6 CARE T VISIT ASSOCIATE 15 S MINUTES EMERGENCY 94615 AMPARO GRAY 6 6 PHYSICIAN DEPARTMEN S, [facility] T VISIT HIGH/URGE NT SEVERITY HOSPITAL JUN - 6 6 [facility] OUTPATIEN [facility] T EMERGENCY 25610 JUN 6 6 [facility] T VISIT LOW/MODER SEVERITY OFFICE 03979 FAMILY MARCO A OUTPATIEN 6 6 CARE MARZENA T VISIT ASSOCIATE 15 S MINUTES HOSPITAL JUN - 6 6 [facility] INC T OFFICE 40850 PROGRESSI JAMAR OUTPATIEN 6 6 VE MOUNA T VISIT PODIATRY 15 MINUTES OFFICE 34906 FAMILY MARCO A OUTPATIEN 6 6 CARE MARZENA T VISIT ASSOCIATE 15 S MINUTES OFFICE 92109 FAMILY MARCO A CONSULTAT 6 6 CARE MARZENA ION ASSOCIATE NEW/ESTAB S PATIENT 40 MIN OFFICE 01559 PROGRESSI JAMAR OUTPATIEN 6 6 VE MOUNA T VISIT PODIATRY 15 MINUTES HOSPITAL JUN - 6 6 [facility] OUT[facility] INC T OFFICE 41882 FALLIS JAMAR OUTPATIEN 6 6 T NEW 30 MINUTES OFFICE 40670 [facility] PET[facility] OUTPATIEN 6 6 PHYSICIAN HAYLIE Suarez NEW 20 S GROUP MINUTES EMERGENCY 32860 JUN 6 6 [facility] DEPARTMEN INC T VISIT LOW/MODER SEVERITY HOSPITAL JUN - 6 6 [facility] INC T EMERGENCY 23953 [facility] 6 6 PHYSICIAN DEPARTMEN S, [facility] T VISIT HIGH/URGE NT SEVERITY EMERGENCY 31307 [facility] 6 6 PHYSICIAN DEPARTMEN S, [facility] T VISIT HIGH/URGE NT SEVERITY [facility] T VISIT MEDICAL 25 G MINUTES EMERGENCY 34286 AMPARO LUNDBERG DEPT 6 6 PHYSICIAN U PARKER VISIT S, [facility] HIGH SEVERITY& THREAT [facility] JUN - 6 6 [facility] INC T EMERGENCY 45215 AMPARO KRISHNA 5 5 PHYSICIAN LEONARDO [facility] S, [facility] T VISIT HIGH/URGE NT SEVERITY HOSPITAL JUN - 5 5 [facility] OUTPATIEN INC T EMERGENCY 78389 JUN 5 5 [facility] DEPARTMEN INC T VISIT LOW/MODER SEVERITY HOSPITAL JUN - 5 5 [facility] INC T OFFICE 67120 [facility] JAMES OUTPATIEN 5 5 [facility] T VISIT MEDICAL 40 G MINUTES HOSPITAL [facility] - 5 5 HOSPITAL INPATIENT OFFICE 27584 FAMILY MARCO A OUTPATIEN 5 5 CARE MARZENA T VISIT ASSOCIATE 25 S MINUTES EMERGENCY 93490 AMPARO Boudreaux 5 5 PHYSICIAN DEPARTMEN S, [facility] T VISIT HIGH/URGE NT SEVERITY HOSPITAL JUN - 5 5 [facility] OUTPATI[facility] INC T OFFICE 86084 FAMILY MARCO A OUTPATIEN 5 5 CARE MARZENA T VISIT ASSOCIATE 15 S MINUTES HOSPITAL JUN - 5 5 [facility] T [facility] JUN - 5 5 [facility] INC T OFFICE 56979 DIANNE FALLUJI OUTPATIEN 5 5 [facility] T VISIT MEDICAL 25 G MINUTES HOSPITAL JUN - 5 5 [facility] INC T OFFICE 77582 FAMILY MARCO A OUTPATIEN 5 5 CARE MARZENA T VISIT ASSOCIATE 15 S MINUTES OFFICE 66375 FAMILY MARCO A OUTPATIEN 5 5 CARE MAR[facility]NA T VISIT ASSOCIATE 15 S MINUTES HOSPITAL JUN - 5 5 [facility] OUTPATIEN INC T OFFICE 44902 FAMILY MARCO A OUTPATIEN 5 5 CARE MARZENA T VISIT ASSOCIATE 15 S MINUTES HOSPITAL [address] INPATIENT EMERGENCY 91485 [facility] DEPT 4 4 [facility] VISIT EMERGENCY HIGH PHYS SEVERITY& THREAT FUNCJ EMERGENCY 58640 [facility] 4 4 [facility] DEPARTMEN EMERGENCY T VISIT PHYS HIGH/URGE NT SEVERITY EMERGENCY 28445 [facility] 4 4 [place] BULL DEPARTMEN EMERGENCY T VISIT PHYS HIGH/URGE NT SEVERITY EMERGENCY 36446 [facility] 4 4 ANTONIETA IMT VISIT EMERGENCY HIGH PHYS SEVERITY& THREAT FUNCJ EMERGENCY 29095 [facility] 4 4 [place]ET[place] BULL DEPARTMEN EMERGENCY T VISIT PHYS HIGH/URGE NT SEVERITY OFFICE 02411 [facility] OUTPATIEN 4 4 CARE T VISIT ASSOCIATE 25 S MINUTES EMERGENCY 30899 [facility] 4 4 DEPARTMEN T VISIT HIGH/URGE NT SEVERITY EMERGENCY 89324 JAAMR ROLDAN 4 4 III SHEILA III SHEILA DEPARTMEN T VISIT MODERATE SEVERITY EMERGENCY 40027 [facility] 4 4 DEPARTMEN T VISIT HIGH/URGE NT SEVERITY EMERGENCY 31022 JAMAR ROLDAN 4 4 III SHEILA III SHEILA DEPARTMEN T VISIT HIGH/URGE NT SEVERITY OFFICE 48759 [facility] OUT[facility] 3 3 ALI SARABJIT ALI SARABJIT T VISIT 15 MINUTES HOSPITAL JUN - 3 3 [facility] OFF[facility] 14951 ANJ[facility]JES[facility] OUTPATIEN 3 3 ALI SARABJIT ALI SARABJIT T NEW 45 MINUTES EMERGENCY 45089 ALFARIS ALFARIS DEPT 3 3 [facility] VISIT HIGH SEVERITY& THREAT FUNCJ EMERGENCY 92062 JUN 3 3 [facility] T VISIT MODERATE SEVERITY EMERGENCY 37983 TIN CASTLE 3 3 [facility] T VISIT HIGH/URGE NT SEVERITY HOSPITAL JUN - 3 3 [facility] OUTPATIEN [facility] OFFICE 97448 MARCO A STRICKLAND OUTPATIEN 3 3 G G T VISIT 15 MINUTES HOSPITAL JUN - 3 3 [facility]PATI[facility] JUN - 3 3 [facility] JUN - 3 3 [facility]PATI[facility] JUN - 2 2 [facility] OUTPATIEN [facility] EMERGENCY 66793 JAMAR ROLDAN DEPT 2 2 III SHEILA III SHEILA VISIT HIGH SEVERITY& THREAT FUNCJ EMERGENCY 10422 JUN 2 2 [facility] T VISIT HIGH/URGE NT SEVERITY HOSPITAL JUN - 2 2 [facility] OUTPATIEN [facility] T OFFICE 40910 GEORGES GEORGES CONSULTAT 2 2 L L ION NEW/ESTAB PATIENT 60 MIN HOSPITAL JUN - 2 2 [facility] OUTPATIEN INC T EMERGENCY 56087 JUN 2 2 [facility] DEPARTMEN INC T VISIT HIGH/URGE NT SEVERITY OFFICE 18629 [facility] OUTPAT[facility] 2 2 R H R H T VISIT 15 MINUTES EMERGENCY 22494 ALEX SIMENTAL 2 2 EMERGENCY DEPARTMEN SERVICES T VISIT HIGH/URGE NT SEVERITY EMERGENCY 91227 [facility] 2 2 III SHEILA III SHEILA VISIT HIGH SEVERITY& THREAT FUNCJ EMERGENCY 22610 JUN 2 2 [facility] DEPARTMEN INC T VISIT MODERATE SEVERITY OFFICE 75312 MARCO A Faustin OUTPATIEN 2 2 T VISIT 25 MINUTES HOSPITAL JUN - 2 2 [facility] INC T EMERGENCY 38058 ALEX KEYES DEPT 2 2 EMERGENCY SHEILA VISIT SERVICES HIGH SEVERITY& THREAT FUNJ HOSPITAL JUN - 2 2 [facility] OUTPATIEN INC T EMERGENCY 67909 JUN 2 2 [facility] DEPARTMEN INC T VISIT HIGH/URGE NT SEVERITY OFFICE 55204 [facility] OUTPATIEN 2 2 KEO KEO T VISIT 10 MINUTES HOSPITAL JUN - 2 2 [facility] OUTPATIEN INC T EMERGENCY 34993 JUN 2 2 [facility] DEPARTMEN INC T VISIT MODERATE SEVERITY EMERGENCY 99083 ALEX ALCOCER 2 2 EMERGENCY DEPARTMEN SERVICES T VISIT HIGH/URGE NT SEVERITY EMERGENCY 64203 ALEX CASTLE 2 2 EMERGENCY BULL DEPARTMEN SERVICES T VISIT HIGH/URGE NT SEVERITY HOSPITAL JUN - 2 2 [facility] OUTPATIEN INC T EMERGENCY 47480 JUN 2 2 [facility] DEPARTMEN INC T VISIT HIGH/URGE NT SEVERITY OFFICE 66666 MARCO A J MARCO A J OUTPATIEN 2 2 G G T VISIT 25 MINUTES HOSPITAL JUN - 1 1 [facility] OUTPATIEN INC T EMERGENCY 16008 ALEX CASTLE 1 1 EMERGENCY [facility] SERVICES T VISIT HIGH/URGE NT SEVERITY EMERGENCY 83216 JUN 1 1 [facility] T VISIT MODERATE SEVERITY OFFICE 17001 Jeannette DENNY OUTPATIEN 1 1 DENISHA Suarez VISIT [facility] 15 MINUTES HOSPITAL JUN - 1 1 [facility] JUN - 1 1 [facility] OUTPATIEN [facility] EMERGENCY 46701 ALEX MCCOLLUM DEPT 1 1 EMERGENCY VISIT SERVICES HIGH SEVERITY& THREAT FUNCJ EMERGENCY 57368 JUN 1 1 [facility] T VISIT HIGH/URGE NT SEVERITY OFFICE 88106 Jeannette DENNY CONSULTAT 1 1 DENISAH WAYNE MD [facility] NEW/ESTAB PATIENT 60 MIN OFFICE 93259 FAMILY LORIE OUTPATIEN 1 1 CARE R H T VISIT ASSOCIATE 15 S MINUTES OFFICE 07122 FAMILY OUTPATIEN 1 1 CARE T VISIT ASSOCIATE 15 S MINUTES OFFICE 87242 FAMILY MARCO A J OUTPATIEN 1 1 CARE T VISIT ASSOCIATE 15 S MINUTES HOSPITAL JUN - 1 1 [facility] OUT[facility] INC T OFFICE 68377 FAMILY MARCO A J OUTPATIEN 1 1 CARE T VISIT ASSOCIATE 25 S MINUTES EMERGENCY 46689 [facility]UN 0 [facility] H[facility]URGE [facility] SEVERITY [facility] JUN - 0 0 [facility] OUTPAT[facility] INC T EMERGENCY 43388 ALEX BRYANT CHUN DEPT 0 0 EMERGENCY VISIT SERVICES HIGH SEVERITY& THREAT [facility] JUN - 0 0 [facility] OUTPATIEN INC T EMERGENCY 04573 ALEX CASTLE 0 0 EMERGENCY [facility] DEPART[facility] SERVICES T VISIT HIGH/URGE NT SEVERITY EMERGENCY 02895 JUN 0 0 [facility] DEPARTMEN INC T VISIT LOW/MODER SEVERITY HOSPITAL JUN - 0 0 [facility] OUTPATIEN INC T OFFICE 38989 Ramin JAMES OUTPATIEN 0 0 CARE G T VISIT ASSOCIATE 15 S MINUTES OFFICE 45715 FAMILY MELO LIZETHPATIEN 0 0 CARE R OLGA T VISIT ASSOCIATE 25 S MINUTES HOSPITAL JUN - 9 9 [facility] OUTPATIEN INC T EMERGENCY 48090 ALEX ALVAREZSHERINE 9 9 EMERGENCY III, DEPARTMEN SERVICES MAGALI T VISIT HIGH/URGE ASSOCIATE NT S SEVERITY EMERGENCY 29707 JUN 9 9 [facility] DEPARTMEN INC T VISIT MODERATE SEVERITY OFFICE 22983 Ramin STRICKLAND OUTPATIEN 9 9 CARE G T VISIT ASSOCIATE 15 S MINUTES HOSPITAL JUN - 9 9 [facility] OUTPATIEN INC T OFFICE 03072 FAMILY MELO OUTPATIEN 9 9 CARE R OLGA T VISIT ASSOCIATE 15 S MINUTES EMERGENCY 17184 ALEX CHOLO, 9 9 EMERGENCY VIN DEPARTMEN SERVICES O T VISIT HIGH/URGE ASSOCIATE NT S SEVERITY EMERGENCY 19077 JUN 9 9 [facility] DEPARTMEN INC T VISIT LOW/MODER SEVERITY HOSPITAL JUN - 9 9 [facility] OUTPATIEN INC T OFFICE 13538 JENNI COOKEN 8 8 [facility] DANIE D T VISIT UROLOGY 15 PSC MINUTES OFFICE 42832 Ramin JAMES 8 8 CARE G T VISIT ASSOCIATE 15 S MINUTES OFFICE 96111 Ramin JAMES 8 8 CARE G T VISIT ASSOCIATE 15 S MINUTES OFFICE 03084 Ramin JAMES 8 8 CARE G T VISIT ASSOCIATE 15 S MINUTES OFFICE 19478 TIA PONCE CONSULTAT 8 8 MEDICAL , DARLING WAYNE SERV NEW/ESTAB FOUNDATIO PATIENT 80 MIN HOSPITAL JUN - 8 8 [facility] OUTPATIEN INC T EMERGENCY 33052 JUN 8 8 [facility] DEPARTMEN INC T VISIT HIGH/URGE NT SEVERITY HOSPITAL JUN - 8 8 [facility] OUTPATIEN INC T EMERGENCY 03764 AJDA TOLLIVER, DEPT 8 8 [facility] VISIT CORPORATI HIGH ON SEVERITY& THREAT FUNCJ OFFICE 31618 MARIO COOK 8 8 [facility] DANIE D T VISIT UROLOGY 15 PSC MINUTES OFFICE 43804 MARIO GAMBOA 8 8 MIKKI AMARAL T VISIT CLINIC 25 PSC MINUTES OFFICE 37630 Ramin JAMES 8 8 CARE G T VISIT ASSOCIATE 15 S MINUTES OFFICE 90430 MARIO UP 8 8 CARE R OLGA T VISIT ASSOCIATE 15 S MINUTES OFFICE 14483 MARIO COOK 8 8 [facility] DANIE D T VISIT UROLOGY 25 PSC MINUTES OFFICE 82427 Ramin JAMES 8 8 CARE G T VISIT ASSOCIATE 15 S MINUTES HOSPITAL JUN - 8 8 [facility] OUTPATIEN INC T OFFICE 07766 FAMILY MARCO A, J OUTPATIEN 8 8 CARE G T VISIT ASSOCIATE 25 S MINUTES OFFICE 55968 Ramin JAMES OUTPATIEN 8 8 CARE G T VISIT ASSOCIATE 15 S MINUTES OFFICE 98624 Ramin JAMES OUTPATIEN 8 8 CARE G T VISIT ASSOCIATE 25 S MINUTES HOSPITAL JUN - 8 8 [facility] OUTPATIEN INC T HOSPITAL JUN - 8 8 [facility] OUTPATIEN INC T EMERGENCY 78303 JUN POPE DEPT 8 8 [facility] T VISIT HOSPITAL HIGH PROF SERV SEVERITY& THREAT FUNCJ EMERGENCY 88787 JUN 8 8 [facility] DEPARTMEN INC T VISIT HIGH/URGE NT SEVERITY OFFICE 22136 ROBLES LI OUTPATIEN 8 8 [facility] 15 PSC MINUTES OFFICE 97744 [facility], OUTPATIEN 8 8 LTH DANIE D T VISIT UROLOGY 15 PSC MINUTES OFFICE 94893 [facility], OUTPATIEN 8 8 LTH DANIE D T VISIT UROLOGY 15 PSC MINUTES OFFICE 20663 [facility], OUTPATIEN 8 8 LTH DANIE D T VISIT UROLOGY 15 PSC MINUTES EMERGENCY 71687 JUN 8 8 [facility] DEPARTMEN INC T VISIT LOW/MODER SEVERITY HOSPITAL JUN - 8 8 [facility] OUTPATIEN INC T OFFICE 26444 [facility] OUTPATIEN 8 8 LTH DANIE D T VISIT UROLOGY 15 PSC MINUTES OFFICE 66706 [facility], OUTPATIEN 8 8 LTH DANIE D T VISIT UROLOGY 15 PSC MINUTES OFFICE 88051 Ramin JAMES OUTPATIEN 8 8 CARE G T VISIT ASSOCIATE 15 S MINUTES
--- OUTSIDE RECORDS SUMMARY | 2016-12-15 06:23 | External Medical Summary Rpt ---
Demographics Preferred Language Tajik Marital Status Unknown Protestant Affiliation Unknown Race Unknown Ethnic Group Unknown Author Author RIVER Address Unknown Phone Immunization No patient found.
--- OUTSIDE RECORDS SUMMARY | 2016-12-15 06:23 | External Medical Summary Rpt ---
Demographics Preferred Language Amharic Marital Status Unknown Buddhism Affiliation Unknown Race Unknown Ethnic Group Unknown Author Author RIVER Address Unknown Phone Immunization No patient found.
--- OUTSIDE RECORDS SUMMARY | 2016-12-15 06:24 | External Medical Summary Rpt ---
Author Author [employer] Tesfaye, [employer] Organization [employer] Address Unknown Phone Unavailable Results CBC W Auto Differential panel in Blood Observa Value Referen Units Interpr Notes Date tion ce etation Range Basophils 0 - 0.2 K/MM3 High No Oct 2 informati 2017 8:26 [#/volume on in AM ] in source Blood by data Automated count Basophils 0.1 - 2.0 % High No Oct 2 /100 informati 2017 8:26 leukocyte on in AM s in source Blood by data Automated count Eosinophi 0.0 - 0.4 K/mm3 High No Oct 2 ls informati 2017 8:26 [#/volume on in AM ] in source Blood by data Automated count Eosinophi 0.1 - % Normal No Oct 2 ls/100 12.0 informati 2017 8:26 leukocyte on in AM s in source Blood by data Automated count Granulocy 1.8 - 7.8 K/mm3 High No Oct 2 jayson informati 2017 8:26 [#/volume on in AM ] in source Blood by data Automated count Granulocy 37.0 - % High No Oct 2 jayson/100 80.0 informati 2017 8:26 leukocyte on in AM s in source Blood by data Automated count Hematocri 37.0 - % Low No Oct 2 t [Volume 47.0 informati 2017 8:26 on in AM Fraction] source of Blood data Hemoglobi 12.2 - g/dL Low No Oct 2 n 16.2 informati 2017 8:26 [Mass/vol on in AM ume] in source Blood data Lymphocyt 0.7 - 4.5 K/mm3 High No Oct 2 es informati 2017 8:26 [#/volume on in AM ] in source Unspecifi data ed specimen by Automated count Lymphocyt 10 - 50.0 % Normal No Oct 2 es informati 2017 8:26 [#/volume on in AM ] in source Unspecifi data ed specimen by Automated count Erythrocy 27 - 31.2 pg Low No Oct 2 te mean informati 2016 8:26 corpuscul on in AM ar source hemoglobi data n [Entitic mass] Erythrocy 31.8 - g/dl Low No Dec 2 te mean 35.4 informati 2016 8:26 corpuscul on in AM ar source hemoglobi data n concentra tion [Mass/vol ume] by Automated count Erythrocy 82.2 - fl Low No Dec 2 te mean 97.8 informati 2016 8:26 corpuscul on in AM ar volume source [Entitic data volume] by Automated count Monocytes 0.1 - 1.0 K/mm3 High No Dec 2 informati 2016 8:26 [#/volume on in AM ] in source Blood by data Automated count Monocytes 1.7 - 9.3 % Normal No Dec 06 informati 2016 8:26 leukocyte on in AM s in source Blood by data Automated count Platelet 7.4 - fl Normal No Dec 2 mean 10.4 informati 2016 8:26 volume on in AM [Entitic source volume] data in Blood by Automated count Platelets 142 - 424 K/mm3 Normal No Dec 2 informati 2016 8:26 [#/volume on in AM ] in source Blood data Erythrocy 4.2 - 5.4 M/mm3 Low No Dec 2 jayson informati 2016 8:26 [#/volume on in AM ] in source Amniotic data fluid Erythrocy 11.5 - % Normal No Dec 2 te 17.5 informati 2016 8:26 distribut on in AM ion width source [Entitic data volume] by Automated count Leukocyte 4.8 - K/MM3 High Dec 2 s 10.8 alert NOTIFICAT 2017 8:26 [#/volume ION AM ] in RESULT Blood Frannie ne Differential panel, method unspecified - Observa Value Referen Units Interpr Notes Date tion ce etation Range Neutrophi 0 - 8 % Normal No Dec 2 ls.band informati 2017 8:26 form/100 on in AM leukocyte source s in data Blood by Automated count Basophils 0 - 1 % High No Dec 06 informati 2016 8:26 leukocyte on in AM s in source Blood by data Automated count Eosinophi 0 - 3 % Normal No Dec 2 ls/100 informati 2016 8:26 leukocyte on in AM s in source Blood by data Manual count Hypochr 2+ No No No No Dec 2 omia informa informa informa informa 2017 [Presen tion in tion in tion in tion in 8:26 AM ce] in source source source source Blood data data data data LYMPH 23 10 - 50 % Normal No Oct 2 informa 2016 tion in 8:26 AM source data Metamyelo 0 - 1 % High No Oct 2 cytes/100 informati 2017 8:26 on in AM leukocyte source s in data Blood by Manual count Monocytes 2 - 9 % Normal No Oct 2 /100 informati 2016 8:26 leukocyte on in AM s in source Blood by data Automated count Platele NORMAL No No No No Oct 2 ts informa informa informa informa 2016 [Presen tion in tion in tion in tion in 8:26 AM ce] in source source source source Blood data data data data by Light microsc opy Neutrophi 42 - 76 % Normal No Oct 2 ls informati 2016 8:26 [#/volume on in AM ] in source Blood by data Automated count Cells No #CELLS No No Oct 2 Counted informati informati informati 2016 8:26 Total [#] on in on in on in AM in Blood source source source data data data Comprehensive metabolic 2000 panel in Serum or Plasma Observa Value Referen Units Interpr Notes Date tion ce etation Range Albumin/G 1.1 - 1.8 No Normal No Oct 2 lobulin informati informati 2017 8:26 [Mass on in on in AM ratio] in source source Serum or data data Plasma Albumin 3.4 - 5.0 gm/dL Normal No Oct 2 [Mass/vol informati 2017 8:26 ume] in on in AM Serum or source Plasma data Alkaline 46 - 116 U/L High No Oct 2 phosphata informati 2017 8:26 se on in AM [Enzymati source c data activity/ volume] in Serum or Plasma Bilirubin 0.2 - 1.0 mg/dL Normal No Oct 2 .total informati 2017 8:26 [Mass/vol on in AM ume] in source Serum or data Plasma Urea 7 - 18 mg/dL Normal No Oct 2 nitrogen informati 2017 8:26 [Mass/vol on in AM ume] in source Serum or data Plasma Calcium 8.5 - mg/dL Low No Oct 2 [Mass/vol 10.1 informati 2017 8:26 ume] in on in AM Serum or source Plasma data Chloride 98 - 107 mmoL/L Normal No Oct 2 [Moles/vo informati 2017 8:26 lume] in on in AM Serum or source Plasma data Carbon 21.0 - mmoL/L Normal No Oct 2 dioxide, 32.0 informati 2016 8:26 total on in AM [Moles/vo source lume] in data Serum or Plasma Creatinin 0.55 - mg/dL Normal No Oct 2 e 1.02 informati 2016 8:26 [Mass/vol on in AM ume] in source Serum or data Plasma Estimated 59- ML/MIN Low REFERENCE Oct 2 RANGE: 2016 8:26 glomerula >60 AM r ML/MIN/1. filtratio 73 SQUARE n rate METERSIf (GF this patient is -A merican, then multiply theresult by 1.210. Globulin 1.3 - 3.2 gm/dL High No Oct 2 [Mass/vol informati 2016 8:26 ume] in on in AM Serum source data Glucose 74 - 106 mg/dL Normal No Oct 2 [Mass/vol informati 2016 8:26 ume] in on in AM Serum or source Plasma data Potassium 3.5 - 5.1 mmoL/L Normal No Oct 2 informati 2016 8:26 [Moles/vo on in AM lume] in source Serum or data Plasma Sodium 136 - 145 mmoL/L Normal No Oct 2 [Moles/vo informati 2016 8:26 lume] in on in AM Serum or source Plasma data Aspartate 15 - 37 U/L Normal No Oct 2 informati 2016 8:26 aminotran on in AM sferase source [Enzymati data c activity/ volume] in Serum or Plasma Alanine 12 - 78 U/L Normal No Oct 2 aminotran informati 2016 8:26 sferase on in AM [Enzymati source c data activity/ volume] in Serum or Plasma Protein 6.4 - 8.2 gm/dL Normal No Oct 2 [Mass/vol informati 2016 8:26 ume] in on in AM Serum or source Plasma data Streptococcus pyogenes Ag [Presence] in Unspecified specimen Observa Value Referen Units Interpr Notes Date tion ce etation Range Strepto NEGATIV No No No No Sep 18 coccus E informa informa informa informa 2017 pyogene tion in tion in tion in tion in 6:50 PM s Ag source source source source [Presen data data data data ce] in Unspeci fied specime n CBC W Auto Differential panel in Blood Observa Value Referen Units Interpr Notes Date tion ce etation Range Basophils 0 - 0.2 K/MM3 High No Sep 18 informati 2016 5:30 [#/volume on in PM ] in source Blood by data Automated count Basophils 0.1 - 2.0 % High No Sep 18 /100 informati 2016 5:30 leukocyte on in PM s in source Blood by data Automated count Eosinophi 0.0 - 0.4 K/mm3 High No Sep 18 ls informati 2016 5:30 [#/volume on in PM ] in source Blood by data Automated count Eosinophi 0.1 - % Normal No Sep 18 ls/100 12.0 informati 2016 5:30 leukocyte on in PM s in source Blood by data Automated count Granulocy 1.8 - 7.8 K/mm3 High No Sep 18 jayson informati 2016 5:30 [#/volume on in PM ] in source Blood by data Automated count Granulocy 37.0 - % High No Sep 18 jayson/100 80.0 informati 2016 5:30 leukocyte on in PM s in source Blood by data Automated count Hematocri 37.0 - % Low No Sep 18 t [Volume 47.0 informati 2017 5:30 on in PM Fraction] source of Blood data Hemoglobi 12.2 - g/dL Low No Sep 18 n 16.2 informati 2016 5:30 [Mass/vol on in PM ume] in source Blood data Lymphocyt 0.7 - 4.5 K/mm3 High No Sep 18 es informati 2017 5:30 [#/volume on in PM ] in source Unspecifi data ed specimen by Automated count Lymphocyt 10 - 50.0 % Normal No Sep 18 es informati 2017 5:30 [#/volume on in PM ] in source Unspecifi data ed specimen by Automated count Erythrocy 27 - 31.2 pg Low No Sep 18 te mean informati 2016 5:30 corpuscul on in PM ar source hemoglobi data n [Entitic mass] Erythrocy 31.8 - g/dl Low No Sep 18 te mean 35.4 informati 2016 5:30 corpuscul on in PM ar source hemoglobi data n concentra tion [Mass/vol ume] by Automated count Erythrocy 82.2 - fl Low No Sep 18 te mean 97.8 informati 2017 5:30 corpuscul on in PM ar volume source [Entitic data volume] by Automated count Monocytes 0.1 - 1.0 K/mm3 High No Sep 18 informati 2017 5:30 [#/volume on in PM ] in source Blood by data Automated count Monocytes 1.7 - 9.3 % Normal No Sep 18 /100 informati 2017 5:30 leukocyte on in PM s in source Blood by data Automated count Platelet 7.4 - fl Normal No Sep 18 mean 10.4 informati 2017 5:30 volume on in PM [Entitic source volume] data in Blood by Automated count Platelets 142 - 424 K/mm3 Normal No Sep 18 informati 2017 5:30 [#/volume on in PM ] in source Blood data Erythrocy 4.2 - 5.4 M/mm3 Low No Sep 18 jayson informati 2017 5:30 [#/volume on in PM ] in source Amniotic data fluid Erythrocy 11.5 - % Normal No Sep 18 te 17.5 informati 2017 5:30 distribut on in PM ion width source [Entitic data volume] by Automated count Leukocyte 4.8 - K/MM3 High Sep 18 s 10.8 alert NOTIFICAT 2017 5:30 [#/volume ION PM ] in RESULT Blood Differential panel, method unspecified - Observa Value Referen Units Interpr Notes Date tion ce etation Range Neutrophi 0 - 8 % Normal No Sep 18 ls.band informati 2017 5:30 form/100 on in PM leukocyte source s in data Blood by Automated count BLASTOC 2 0- % High No Sep 18 YTES alert informa 2017 tion in 5:30 PM source data Eosinophi 0 - 3 % Normal No Sep 18 ls/100 informati 2017 5:30 leukocyte on in PM s in source Blood by data Manual count LYMPH 17 10 - 50 % Normal No Sep 18 informa 2017 tion in 5:30 PM source data Metamyelo 0 - 1 % Normal No Sep 18 cytes/100 informati 2017 5:30 on in PM leukocyte source s in data Blood by Manual count Monocytes 2 - 9 % Normal No Sep 18 /100 informati 2017 5:30 leukocyte on in PM s in source Blood by data Automated count XXX No No No No Sep 18 cells/100 informati informati informati informati 2017 5:30 cells in on in on in on in on in PM source source source source Unspecifi data data data data ed specimen Platele NORMAL No No No No Sep 18 ts informa informa informa informa 2016 [Presen tion in tion in tion in tion in 5:30 PM ce] in source source source source Blood data data data data by Light microsc opy Neutrophi 42 - 76 % Normal No Sep 18 ls 2016 5:30 [#/volume on in PM ] in source Blood by data Automated count Cells No #CELLS No No Sep 18 Counted informati informati informati 2016 5:30 Total [#] on in on in on in PM in Blood source source source data data data CBC W Auto Differential panel in Blood Observa Value Referen Units Interpr Notes Date tion ce etation Range Basophils 0 - 0.2 K/MM3 High No Sep 8 inform2016 8:30 [#/volume on in AM ] in source Blood by data Automated count Basophils 0.1 - 2.0 % High No Sep 8 /100 informati 2016 8:30 leukocyte on in AM s in source Blood by data Automated count Eosinophi 0.0 - 0.4 K/mm3 High No Sep 8 ls informati 2016 8:30 [#/volume on in AM ] in source Blood by data Automated count Eosinophi 0.1 - % Normal No Sep 8 ls/100 12.0 informati 2016 8:30 leukocyte on in AM s in source Blood by data Automated count Granulocy 1.8 - 7.8 K/mm3 High No Sep 8 jayson informati 2016 8:30 [#/volume on in AM ] in source Blood by data Automated count Granulocy 37.0 - % High No Sep 8 jayson/100 80.0 informati 2016 8:30 leukocyte on in AM s in source Blood by data Automated count Hematocri 37.0 - % Low No Sep 8 t [Volume 47.0 informati 2016 8:30 on in AM Fraction] source of Blood data Hemoglobi 12.2 - g/dL Low No Sep 8 n 16.2 informati 2016 8:30 [Mass/vol on in AM ume] in source Blood data Lymphocyt 0.7 - 4.5 K/mm3 High No Sep 8 es ati 2016 8:30 [#/volume on in AM ] in source Unspecifi data ed specimen by Automated count Lymphocyt 10 - 50.0 % Normal No Sep 8 es informati 2016 8:30 [#/volume on in AM ] in source Unspecifi data ed specimen by Automated count Erythrocy 27 - 31.2 pg Low No Sep 8 te mean informati 2016 8:30 corpuscul on in AM ar source hemoglobi data n [Entitic mass] Erythrocy 31.8 - g/dl Low No Sep 8 te mean 35.4 informati 2016 8:30 corpuscul on in AM ar source hemoglobi data n concentra tion [Mass/vol ume] by Automated count Erythrocy 82.2 - fl Low No Sep 8 te mean 97.8 informati 2016 8:30 corpuscul on in AM ar volume source [Entitic data volume] by Automated count Monocytes 0.1 - 1.0 K/mm3 High No Sep 8 informati 2016 8:30 [#/volume on in AM ] in source Blood by data Automated count Monocytes 1.7 - 9.3 % Normal No Sep 8 /100 informati 2016 8:30 leukocyte on in AM s in source Blood by data Automated count Platelet 7.4 - fl Normal No Sep 8 mean 10.4 informati 2016 8:30 volume on in AM [Entitic source volume] data in Blood by Automated count Platelets 142 - 424 K/mm3 Normal No Sep 8 inform2016 8:30 [#/volume on in AM ] in source Blood data Erythrocy 4.2 - 5.4 M/mm3 Low No Sep 8 jayson informati 2016 8:30 [#/volume on in AM ] in source Amniotic data fluid Erythrocy 11.5 - % Normal No Sep 8 te 17.5 informati 2016 8:30 distribut on in AM ion width source [Entitic data volume] by Automated count Leukocyte 4.8 - K/MM3 High Sep 8 s 10.8 alert NOTIFICAT 2017 8:30 [#/volume ION AM ] in RESULT Blood Frannie lane Differential panel, method unspecified - Observa Value Referen Units Interpr Notes Date tion ce etation Range Neutrophi 0 - 8 % Normal No Sep 8 ls.band informati 2016 8:30 form/100 on in AM leukocyte source s in data Blood by Automated count Basophils 0 - 1 % High No Sep 8 /100 informati 2016 8:30 leukocyte on in AM s in source Blood by data Automated count Eosinophi 0 - 3 % Normal No Sep 8 ls/100 informati 2017 8:30 leukocyte on in AM s in source Blood by data Manual count LYMPH 24 10 - 50 % Normal No Sep 8 informa 2017 tion in 8:30 AM source data Metamyelo 0 - 1 % High No Sep 8 cytes/100 informati 2017 8:30 on in AM leukocyte source s in data Blood by Manual count Monocytes 2 - 9 % Normal No Sep 8 /100 informati 2016 8:30 leukocyte on in AM s in source Blood by data Automated count Platele NORMAL No No No No Sep 8 ts informa informa informa informa 2016 [Presen tion in tion in tion in tion in 8:30 AM ce] in source source source source Blood data data data data by Light microsc opy Neutrophi 42 - 76 % High No Sep 8 ls informati 2017 8:30 [#/volume on in AM ] in source Blood by data Automated count Cells No #CELLS No No Sep 8 Counted informati informati informati 2016 8:30 Total [#] on in on in on in AM in Blood source source source data data data Comprehensive metabolic 2000 panel in Serum or Plasma Observa Value Referen Units Interpr Notes Date tion ce etation Range Albumin/G 1.1 - 1.8 No Normal No Sep 8 lobulin informati informati 2017 8:30 [Mass on in on in AM ratio] in source source Serum or data data Plasma Albumin 3.4 - 5.0 gm/dL Normal No Sep 8 [Mass/vol informati 2017 8:30 ume] in on in AM Serum or source Plasma data Alkaline 46 - 116 U/L High No Sep 8 phosphata informati 2017 8:30 se on in AM [Enzymati source c data activity/ volume] in Serum or Plasma Bilirubin 0.2 - 1.0 mg/dL Normal No Sep 8 .total informati 2017 8:30 [Mass/vol on in AM ume] in source Serum or data Plasma Urea 7 - 18 mg/dL Normal No Sep 8 nitrogen informati 2017 8:30 [Mass/vol on in AM ume] in source Serum or data Plasma Calcium 8.5 - mg/dL Normal No Sep 8 [Mass/vol 10.1 informati 2017 8:30 ume] in on in AM Serum or source Plasma data Chloride 98 - 107 mmoL/L Normal No Sep 8 [Moles/vo informati 2017 8:30 lume] in on in AM Serum or source Plasma data Carbon 21.0 - mmoL/L Normal No Sep 8 dioxide, 32.0 informati 2016 8:30 total on in AM [Moles/vo source lume] in data Serum or Plasma Creatinin 0.55 - mg/dL Normal No Sep 8 e 1.02 informati 2016 8:30 [Mass/vol on in AM ume] in source Serum or data Plasma Estimated 59- ML/MIN No REFERENCE Sep 8 informati RANGE: 2017 8:30 glomerula on in >60 AM r source ML/MIN/1. filtratio data 73 SQUARE n rate METERSIf (GF this patient is -A merican, then multiply theresult by 1.210. Globulin 1.3 - 3.2 gm/dL High No Sep 8 [Mass/vol informati 2016 8:30 ume] in on in AM Serum source data Glucose 74 - 106 mg/dL Normal No Sep 8 [Mass/vol informati 2016 8:30 ume] in on in AM Serum or source Plasma data Potassium 3.5 - 5.1 mmoL/L Normal No Sep 8 informati 2016 8:30 [Moles/vo on in AM lume] in source Serum or data Plasma Sodium 136 - 145 mmoL/L Normal No Sep 8 [Moles/vo informati 2017 8:30 lume] in on in AM Serum or source Plasma data Aspartate 15 - 37 U/L Normal No Sep 8 informati 2016 8:30 aminotran on in AM sferase source [Enzymati data c activity/ volume] in Serum or Plasma Alanine 12 - 78 U/L Normal No Sep 8 aminotran informati 2016 8:30 sferase on in AM [Enzymati source c data activity/ volume] in Serum or Plasma Protein 6.4 - 8.2 gm/dL Normal No Sep 8 [Mass/vol informati 2016 8:30 ume] in on in AM Serum or source Plasma data Comprehensive metabolic 2000 panel in Serum or Plasma Observa Value Referen Units Interpr Notes Date tion ce etation Range Albumin/G 1.1 - 1.8 No Normal No Oct 21 lobulin informati informati 2016 [Mass on in on in 10:17 AM ratio] in source source Serum or data data Plasma Albumin 3.4 - 5.0 gm/dL Normal No Oct 21 [Mass/vol informati 2017 ume] in on in 10:17 AM Serum or source Plasma data Alkaline 46 - 116 U/L High No Oct 21 phosphata informati 2016 se on in 10:17 AM [Enzymati source c data activity/ volume] in Serum or Plasma Bilirubin 0.2 - 1.0 mg/dL Normal No Oct 21 .total informati 2016 [Mass/vol on in 10:17 AM ume] in source Serum or data Plasma Urea 7 - 18 mg/dL Normal No Oct 21 nitrogen informati 2016 [Mass/vol on in 10:17 AM ume] in source Serum or data Plasma Calcium 8.5 - mg/dL Low No Oct 21 [Mass/vol 10.1 informati 2016 ume] in on in 10:17 AM Serum or source Plasma data Chloride 98 - 107 mmoL/L Normal No Oct 21 [Moles/vo informati 2016 lume] in on in 10:17 AM Serum or source Plasma data Carbon 21.0 - mmoL/L Normal No Oct 21 dioxide, 32.0 informati 2016 total on in 10:17 AM [Moles/vo source lume] in data Serum or Plasma Creatinin 0.55 - mg/dL Normal No Oct 21 e 1.02 informati 2016 [Mass/vol on in 10:17 AM ume] in source Serum or data Plasma Estimated 59- ML/MIN No REFERENCE Oct 21 informati RANGE: 2017 glomerula on in >60 10:17 AM r source ML/MIN/1. filtratio data 73 SQUARE n rate METERSIf (GF this patient is -A merican, then multiply theresult by 1.210. Globulin 1.3 - 3.2 gm/dL High No Oct 21 [Mass/vol informati 2017 ume] in on in 10:17 AM Serum source data Glucose 74 - 106 mg/dL Normal No Oct 21 [Mass/vol informati 2017 ume] in on in 10:17 AM Serum or source Plasma data Potassium 3.5 - 5.1 mmoL/L Normal No Oct 21 informati 2016 [Moles/vo on in 10:17 AM lume] in source Serum or data Plasma Sodium 136 - 145 mmoL/L Normal No Oct 21 [Moles/vo informati 2017 lume] in on in 10:17 AM Serum or source Plasma data Aspartate 15 - 37 U/L Low No Oct 21 inform2016 aminotran on in 10:17 AM sferase source [Enzymati data c activity/ volume] in Serum or Plasma Alanine 12 - 78 U/L Normal No Oct 21 aminotran informati 2016 sferase on in 10:17 AM [Enzymati source c data activity/ volume] in Serum or Plasma Protein 6.4 - 8.2 gm/dL Normal No Oct 21 [Mass/vol informati 2016 ume] in on in 10:17 AM Serum or source Plasma data JAK2 gene p.V617F [Presence] in Blood or Tissue by Molecular genetics method Observa Value Referen Units Interpr Notes Date tion ce etation Range JAK2 NEGATIV No No No Negativ Sep 29 gene E informa informa informa e for 2017 p.V617F tion in tion in tion in JAK2 2:15 PM source source source V617F [Presen data data data mutatio ce] in n.Pleas Blood e refer or to Tissue faxed by [facility] for ar interpr genetic etaion, s method backgro und,and directo r review. @ faxed [phone] forming site:[facility] [place] [address] [id number]: Shaista baer MDFor inquiri es, the physici an may contact Branch: Lab: [phone] Leukocyte phosphatase [Units/volume] in Leukocytes Observa Value Referen Units Interpr Notes Date tion ce etation Range Leukocyte 40 - 100 SCORE Low Performin Sep 29 g 2016 2:15 phosphata site:Lab PM se orp [Units/vo [id number] lume] in 0 [facility], [place] [address]Dir: Corazon Tavera MDFor inquiries , the physician may contactBr anch: [phone] Lab: [id number], CML/ALL, PCR, Quant Observa Value Referen Units Interpr Notes Date tion ce etation Range BCR/ABL1 . % No No Sep 29 b2a2 informati informati 2016 2:15 fusion on in on in PM transcrip source source t/ABL1 data data transcrip t [# Ratio] in Blood or Tissue by Molecular genetics method BCR/ABL1 . % No <0.001 Sep 29 b3a2 informati %(sensiti 2017 2:15 fusion on in vity PM transcrip source limit of t/ABL1 data assay) transcrip t [# Ratio] in Blood or Tissue by Molecular genetics method BCR/ABL1 . % No No Sep 29 e1a2 informati informati 2017 2:15 fusion on in on in PM transcrip source source t/ABL1 data data transcrip t [# Ratio] in Blood or Tissue by Molecular genetics method Interpr Comment . No Abnorma The Sep 29 etation informa l quantit 2017 : tion in ative 2:15 PM source RT-PCR data assay is positiv e for the b2a2(p2 10) and e1a2 (p190) fusion gene transcr ipts. The co-expr ession of p210 and p190-en coding transcr ipts by Yifan miramontes in chronic phase is reporte d to be the result ofalter [place] splicin g, however , the prognos ticsign ificanc e of co-expr ession has yet to be clearly defined . Laborat Comment . No No Anjen Sep 29 ory informa informa [place], 2017 directo tion in tion in MD, 2:15 PM r name source source PhDDire in data data ctor, provide [facility], [place] [id number]- [phone] E SEPERAT E REPORT FOR BACKGRO UND AND METHODO LOGY. Heterophile Ab [Presence] in Serum by Latex agglutination Observa Value Referen Units Interpr Notes Date tion ce etation Range Heterop NEGATIV NEG No No No Sep 29 hile Ab E informa informa informa 2016 tion in tion in tion in 11:50 [Presen source source source AM ce] in data data data Serum by Latex aggluti nation CBC W Auto Differential panel in Blood Observa Value Referen Units Interpr Notes Date tion ce etation Range Basophils 0 - 0.2 K/MM3 High No Sep 29 inform2016 [#/volume on in 11:47 AM ] in source Blood by data Automated count Basophils 0.1 - 2.0 % High No Sep 29 informati 2017 leukocyte on in 11:47 AM s in source Blood by data Automated count Eosinophi 0.0 - 0.4 K/mm3 High No Sep 29 ls inform2016 [#/volume on in 11:47 AM ] in source Blood by data Automated count Eosinophi 0.1 - % Normal No Sep 29 ls/100 12.0 inform2016 leukocyte on in 11:47 AM s in source Blood by data Automated count Granulocy 1.8 - 7.8 K/mm3 High No Sep 29 jayson inform2016 [#/volume on in 11:47 AM ] in source Blood by data Automated count Granulocy 37.0 - % Normal No Sep 29 jayson/100 80.0 inform2016 leukocyte on in 11:47 AM s in source Blood by data Automated count Hematocri 37.0 - % Low No Sep 29 t [Volume 47.0 2016 on in 11:47 AM Fraction] source of Blood data Hemoglobi 12.2 - g/dL Low Sep 29 n 16.2 inform2016 [Mass/vol on in 11:47 AM ume] in source Blood data Lymphocyt 0.7 - 4.5 K/mm3 Normal No Sep 29 es 2016 [#/volume on in 11:47 AM ] in source Unspecifi data ed specimen by Automated count Lymphocyt 10 - 50.0 % Normal Sep 29 es 2016 [#/volume on in 11:47 AM ] in source Unspecifi data ed specimen by Automated count Erythrocy 27 - 31.2 pg Low Sep 29 te mean 2016 corpuscul on in 11:47 AM ar source hemoglobi data n [Entitic mass] Erythrocy 31.8 - g/dl Low No Sep 29 te mean 35.4 2016 corpuscul on in 11:47 AM ar source hemoglobi data n concentra tion [Mass/vol ume] by Automated count Erythrocy 82.2 - fl Normal Sep 29 te mean 97.8 2016 corpuscul on in 11:47 AM ar volume source [Entitic data volume] by Automated count Monocytes 0.1 - 1.0 K/mm3 High No Sep 292016 [#/volume on in 11:47 AM ] in source Blood by data Automated count Monocytes 1.7 - 9.3 % Normal No Sep 292016 leukocyte on in 11:47 AM s in source Blood by data Automated count Platelet 7.4 - fl Normal Sep 29 mean 10.4 2016 volume on in 11:47 AM [Entitic source volume] data in Blood by Automated count Platelets 142 - 424 K/mm3 Normal No Sep 292016 [#/volume on in 11:47 AM ] in source Blood data Erythrocy 4.2 - 5.4 M/mm3 Low No Sep 29 jayson 2016 [#/volume on in 11:47 AM ] in source Amniotic data fluid Erythrocy 11.5 - % Normal No Sep 29 te 17.5 2016 distribut on in 11:47 AM ion width source [Entitic data volume] by Automated count Leukocyte 4.8 - K/MM3 High No Sep 29 s 10.8 alert 2016 [#/volume on in 11:47 AM ] in source Blood data Differential panel, method unspecified - Observa Value Referen Units Interpr Notes Date tion ce etation Range Lymphocyt 0 - 5 % Normal No Sep 29 es 2016 Variant/1 on in 11:47 AM 00 source leukocyte data s in Blood by Manual count Neutrophi 0 - 8 % Normal No Sep 29 ls.band 2016 form/100 on in 11:47 AM leukocyte source s in data Blood by Automated count Basophils 0 - 1 % High No Sep 292016 leukocyte on in 11:47 AM s in source Blood by data Automated count Eosinophi 0 - 3 % Normal No Sep 29 ls/100 2016 leukocyte on in 11:47 AM s in source Blood by data Manual count Hypochr 1+ No No No Sep 29 omia informa informa informa informa 2016 [Presen tion in tion in tion in tion in 11:47 ce] in source source source source AM Blood data data data data LYMPH 17 10 - 50 % Normal No Sep 292016 tion in 11:47 source AM data Monocytes 2 - 9 % High No Sep 292016 leukocyte on in 11:47 AM s in source Blood by data Automated count Platele NORMAL No No No No Sep 29 ts informa informa informa informa 2016 [Presen tion in tion in tion in tion in 11:47 ce] in source source source source AM Blood data data data data by Light microsc opy Neutrophi 42 - 76 % Normal No Sep 29 ls informati 2017 [#/volume on in 11:47 AM ] in source Blood by data Automated count Cells No #CELLS No No Sep 29 Counted informati informati informati 2016 Total [#] on in on in on in 11:47 AM in Blood source source source data data data Comprehensive metabolic 2000 panel in Serum or Plasma Observa Value Referen Units Interpr Notes Date tion ce etation Range Albumin/G 1.1 - 1.8 No Low No Sep 29 lobulin informati informati 2016 [Mass on in on in 11:47 AM ratio] in source source Serum or data data Plasma Albumin 3.4 - 5.0 gm/dL Normal No Sep 29 [Mass/vol informati 2016 ume] in on in 11:47 AM Serum or source Plasma data Alkaline 46 - 116 U/L Normal No Sep 29 phosphata informati 2016 se on in 11:47 AM [Enzymati source c data activity/ volume] in Serum or Plasma Bilirubin 0.2 - 1.0 mg/dL Normal No Sep 29 .total informati 2016 [Mass/vol on in 11:47 AM ume] in source Serum or data Plasma Urea 7 - 18 mg/dL Normal No Sep 29 nitrogen informati 2016 [Mass/vol on in 11:47 AM ume] in source Serum or data Plasma Calcium 8.5 - mg/dL Normal No Sep 29 [Mass/vol 10.1 informati 2016 ume] in on in 11:47 AM Serum or source Plasma data Chloride 98 - 107 mmoL/L Normal No Sep 29 [Moles/vo informati 2016 lume] in on in 11:47 AM Serum or source Plasma data Carbon 21.0 - mmoL/L Normal No Sep 29 dioxide, 32.0 informati 2016 total on in 11:47 AM [Moles/vo source lume] in data Serum or Plasma Creatinin 0.55 - mg/dL Normal No Sep 29 e 1.02 informati 2016 [Mass/vol on in 11:47 AM ume] in source Serum or data Plasma Estimated 59- ML/MIN No REFERENCE Sep 29 informati RANGE: 2017 glomerula on in >60 11:47 AM r source ML/MIN/1. filtratio data 73 SQUARE n rate METERSIf (GF this patient is -A merican, then multiply theresult by 1.210. Globulin 1.3 - 3.2 gm/dL High No Sep 29 [Mass/vol informati 2016 ume] in on in 11:47 AM Serum source data Glucose 74 - 106 mg/dL High No Sep 29 [Mass/vol informati 2017 ume] in on in 11:47 AM Serum or source Plasma data Potassium 3.5 - 5.1 mmoL/L Normal No Sep 29 inform2016 [Moles/vo on in 11:47 AM lume] in source Serum or data Plasma Sodium 136 - 145 mmoL/L Normal No Sep 29 [Moles/vo informati 2016 lume] in on in 11:47 AM Serum or source Plasma data Aspartate 15 - 37 U/L Low No Sep 29 inform2016 aminotran on in 11:47 AM sferase source [Enzymati data c activity/ volume] in Serum or Plasma Alanine 12 - 78 U/L Normal No Sep 29 aminotran informati 2016 sferase on in 11:47 AM [Enzymati source c data activity/ volume] in Serum or Plasma Protein 6.4 - 8.2 gm/dL Normal No Sep 29 [Mass/vol informati 2016 ume] in on in 11:47 AM Serum or source Plasma data Cobalamin (Vitamin B12) [Mass/volume] in Serum Observa Value Referen Units Interpr Notes Date tion ce etation Range Cobalamin 211 - 946 pg/mL High Performed Sep 22 (Vitamin at: CB 2017 B12) - [facility] 11:12 AM [Mass/vol ume] in [place] [address] Serum 0 [place], [place] [id number] Friction Welding Machine Operator: Cameron Galindo PhD, Phone: [phone] Iron and TIBC Observa Value Referen Units Interpr Notes Date tion ce etation Range Iron 250 - 450 ug/dL No No Sep 22 binding informati informati 2017 capacity on in on in 11:12 AM [Mass/vol source source ume] in data data Serum or Plasma Iron 131 - 425 ug/dL No No Sep 22 binding informati informati 2017 capacity. on in on in 11:12 AM unsaturat source source ed data data [Mass/vol ume] in Serum or Plasma Iron 27 - 159 ug/dL Low No Sep 22 [Mass/vol informati 2016 ume] in on in 11:12 AM Serum or source Plasma data Iron 15 - 55 % Low Performed Sep 22 saturatio at: 2016 n [Mass] - [facility] 11:12 AM in Serum or Plasma [id number] [place], [place] [id number] [employer]riction Welding Machine Operator: Cameron Galindo PhD, Phone: [phone] Folate [Mass/volume] in Serum or Plasma Observa Value Referen Units Interpr Notes Date tion ce etation Range Folate >3.0 ng/mL No A serum Sep 22 [Mass/vol informati folate 2017 ume] in on in concentra 11:12 AM Serum or source tion of Plasma data less than 3.1 ng/mL isconside red to represent clinical deficienc y.Perform ed at: - [facility] [id number] [place], [place] [id number] Friction Welding Machine Operator: Cameron Galindo PhD, Phone: [phone] Triiodothyronine (T3) resin uptake in Serum or Plasma Observa Value Referen Units Interpr Notes Date tion ce etation Range Triiodoth 31 - 39 % Low No Sep 22 yronine informati 2017 (T3) on in 11:12 AM resin source uptake in data Serum or Plasma Thyrotropin [Units/volume] in Serum or Plasma Observa Value Referen Units Interpr Notes Date tion ce etation Range Thyrotrop 0.358 - uIU/ml Low No Sep 22 in 3.740 informati 2016 [Units/vo on in 11:12 AM lume] in source Serum or data Plasma Erythrocyte sedimentation rate by Westergren method Observa Value Referen Units Interpr Notes Date tion ce etation Range Erythrocy 0 - 30 mm/hr Normal No Sep 14 te informati 2017 3:57 sedimenta on in PM tion rate source by data Westergre n method
--- OUTSIDE RECORDS SUMMARY | 2016-12-15 06:24 | External Medical Summary Rpt ---
[...] e refer or to Tissue faxed by [facility] for ar interpr genetic etaion, s method backgro und,and directo r review. @ faxed [phone] forming site:[id number] [address] [id number]: Shaista baer MDFor inquiri es, the physici an may contact Branch: Lab: Leukocyte phosphatase [Units/volume] in Leukocytes Observa Value Referen Units Interpr Notes Date tion ce etation Range Leukocyte 40 - 100 SCORE Low Performin Sep 29 g 2016 2:15 phosphata site:Lab PM se orp [Units/vo [id number] lume] in 0 [facility], [place] [address] 6Dir: Corazon Tavera MDFor inquiries , the physician may contactBr anch: Lab: [id number], CML/ALL, PCR, Quant Observa Value [...] reporte d to be the result ofalter catawba splicin g, however , the prognos ticsign [...] for Molecul ar Biology and Patholo gyResea [facility] [place], [place] [address]- [phone] E SEPERAT E REPORT FOR [...] - [facility] 11:12 AM [Mass/vol ume] in [place] [address] Serum 0 [place], [place] [id number] [employer]osit Box Rental Clerk: Cameron Galindo PhD, Phone: [phone] Iron and TIBC Observa Value Referen [...] [facility] 11:12 AM in Serum or Plasma [id number] [place], [place] [id number] [employer] Rental Clerk: Cameron Galindo PhD, Phone: [phone] Folate [Mass/volume] in Serum or Plasma Observa Value Referen Units Interpr Notes Date tion ce etation Range Folate >3.0 ng/mL No A serum Sep 22 [Mass/vol informati folate 2017 ume] in on in concentra 11:12 AM Serum or source tion of Plasma data less than 3.1 ng/mL isconside red to represent clinical deficienc y.Perform ed at: - [facility] [id number] [place], [place] [id number] [employer] Box Rental Clerk: Cameron Galindo PhD, Phone: [phone] Triiodothyronine (T3) resin uptake in Serum [...]
== END 2016-11-22 19:55 | disposition home or self-care (01) ==
LOC: ER 16:46
PROVIDERS: Emergency Medicine
DX: N30.00 Acute cystitis without hematuria (principal); R53.81 Other malaise; C95.90 Leukemia, unspecified not having achieved remission; F17.210 Nicotine dependence, cigarettes, uncomplicated; E11.9 Type 2 diabetes mellitus without complications; Z86.73 Personal history of transient ischemic attack (TIA), and cerebral infarction without residual deficits; J44.9 Chronic obstructive pulmonary disease, unspecified; I11.0 Hypertensive heart disease with heart failure; I50.9 Heart failure, unspecified; I25.2 Old myocardial infarction; E78.5 Hyperlipidemia, unspecified; Z79.01 Long term (current) use of anticoagulants; Z79.82 Long term (current) use of aspirin; Z79.51 Long term (current) use of inhaled steroids; Z79.899 Other long term (current) drug therapy; Z79.84 Long term (current) use of oral hypoglycemic drugs

== ENCOUNTER → 2016-12-06 | Outpatient (CLI) | payer MEDICAID ==
[2016-12-06 08:40] LABS: HEMOGLOBIN 9.7 g/dL (12.2-16.2); LYMPH # 8.2 K/mm3 (0.7-4.5); LYMPH % 12.7 % (10-50.0)
[2016-12-06 08:57] LABS: BUN 10 mg/dL (7-18)
[2016-12-06 08:58] LABS: GFR (ESTIMATED) 57 ML/MIN (59-)
[2016-12-06 09:13] LABS: NEUTROPHILS 53 % (42-76)
== END ==
LOC: LAB 08:24
PROVIDERS: Obstetrics & Gynecology Gynecology
DX: C92.10 Chronic myeloid leukemia, BCR/ABL-positive, not having achieved remission (principal)

== ENCOUNTER 2017-01-09 09:30 | Emergency (ER) | payer MEDICAID ==
[~2017-01-09] VITALS: Ht 162.6 cm; Wt 97.5 kg
[~2017-01-09 09:30] MED LIST changes: +MACROBID100 M3 PO
[2017-01-09 09:48] LABS: LYMPH # 1.3 K/mm3 (0.7-4.5); LYMPH % 29.6 % (10-50.0)
[2017-01-09 09:51] LABS: HEMOGLOBIN 10.5 g/dL (12.2-16.2)
--- NOTE | 2017-01-09 09:56 | Emergency Room Report ---
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 Y Clinical Suspician of Infection? N Mental Status: 1 - Regular (Normal Baseline) Sepsis Risk:Low Sepsis Risk Have you (or family members/close friends) recently traveled outside the [place]? N If Yes, where/when: Have you had exposure to infectious disease within the past month? TB? Other? Specify: 61 years old white female with multiple medical problems and a house infested with bed bugs. She is looking for a new house. She presented with 3 days history of vomiting 3 times a day, last was yesterday and filmy material. Watery diarrhea 2-3 times a day. Sheshe is hemodynamically stable but she is feeling weak. Source patient, RN notes reviewed, old records Exam Limitations no limitations ALLERGIES Coded Allergies: Penicillins (Intermediate, I-RASH 01/09/17) acetaminophen (Intermediate, I-RASH 01/09/17) adhesive tape (Intermediate, I-RASH 01/09/17) digoxin (Intermediate, NA-NAUSEA/VOMITING 01/09/17) hydrocortisone (Intermediate, I-RASH 01/09/17) ciprofloxacin (Mild, NA-NAUSEA/VOMITING 01/09/17) milk (Mild, DIARRHEA 01/09/17) Home Medications Active Scripts Tramadol Hcl (Ultram 50MG) 50 MG PO QID #15 TAB Prov: 04/20/15 NITROFURANTOIN MONOHYD/M-CRYST (Macrobid 100 MG Capsule) 100 MG PO BID #14 CAP Prov: 11/22/16 Albuterol (Albuterol Inhaler 17GM) 2 PUFFS IN Q4HP #1 INH Prov: 03/06/12 Reported Medications NITROGLYCERIN (Nitrostat) 0.4 MG SL [id number] Device (Oxygen (Concentrator)) 1 UNIT XX UD OXYBUTYNIN CHLORIDE (Oxybutynin 5MG Tab) 5 MG PO BID Atorvastatin Calcium (Atorvastatin) 40 MG PO QHS Device (Oxygen (Concentrator)) 1 UNIT XX UD Diazepam (Valium 5MG) 5 MG PO TID ASPIRIN (Aspirin) 81 MG PO DAILY Fluticasone/Vilanterol (Breo Ellipta 200-25 Mcg INH) Ferrous Sulfate (Feosol) Lisinopril (Zestril 5MG Tablet) Rivaroxaban (Xarelto) CEFDINIR (Cefdinir) Metformin HCl (Metformin) 500 MG PO BID #60 BUDESONIDE/FORMOTEROL FUMARATE (Symbicort 80-4.5 Mcg Inhaler) 1 PUFF IH BID #10 Sotalol Hcl (Sotalol) 80 MG PO BID #60 History Medical History General CAD? No Angina: Yes IA: Yes Hypertension? Yes Hyperlipidemia? Yes CHF? Yes DVT? No PE? No COPD? Yes Asthma? No Anemia? No GERD? No Gastric ulcers? No GI Bleed? No Hernia? Yes Thyroid Problems? No Hypothyroidism? No CVA? Yes Seizures? Yes Diabetes? Yes Insulin Dependent: No Insulin Pump: No Home FSBS? No Renal Insuffiency? No End Stage Renal Disease? No UTI? Yes Stones? No BPH? No GB Disease: Yes Nephritic Syndrome? No Asplenia? No Hepatitis? No Sickle Cell Disease? No Arthritis? Yes Migraines? No Cataracts? No Glaucoma? No MRSA? No HIV? No TB? No Anxiety? No Depression? No Cancer? No More? Yes Additional hx: cml Immunization Hx Ped.Immunizations UTD Yes DT/Tetanus UNKNOWN Flu 01/10/08 Pneumonia 01/10/08 Surgical Hx Previous Surgery?Y GallbladdER FX L FOOT TONSILLECTOMY KARRI,BSO COLONOSCOPY X 3 BLADDER REPAIR Appendix CARDIAC STENT X 1 CARDIAC CATH 2- THAT WAS OKAY POLYP REMOVED FROM COLON Family History Family Hx Diabetes Yes CAD Yes Hypertension Yes Hyperlipidemia No Cancer Yes TB No Social History Smoking Hx Smoker: Former Smoker Tobacco: Yes Type Cigarettes Packs/day < 1 Pack Alcohol Alcohol: No Review of Systems All Other Systems Reviewed and Negative Constitutional see HPI Eyes no symptoms reported ENT no symptoms reported. Respiratory no symptoms reported Cardiovascular no symptoms reported Gastrointestinal see HPI, diarrhea, nausea, vomiting Genitourinary no symptoms reported. Musculoskeletal no symptoms reported Skin no symptoms reported Psychiatric/Neurological no symptoms reported Physical Exam Vital Signs Vital Signs Date Time Temp Pulse Resp B/P Pulse O2 O2 Flow FiO2 Ox Delivery Rate 01/09 1112 60 18 100/47 95 01/09 0931 98.9 68 18 146/63 98 - WBC >12,000 or <4,000 or 10% bands? 2 or more SIRS Criteria Met? B/P:146/63 MAP:90 Creatinine >2.0? UA output<0.5ml/kg/hr for 2 hrs? Platelet count >100,000? Lactate >2.0mmol/1? INR >1.2 or PTT > than 60 sec? Evidence of Organ Dysfunction? Provider documented clinical suspician of infection? N Sepsis Criteria Count: 1 Sepsis Risk: Low Sepsis Risk General Appearance normal appearance, WD/WN Eye Exam - bilateral eye normal exam, bilateral eye PERRL, bilateral eye EOMI Ear, Nose, Throat hearing grossly normal, normal ENT inspection Neck normal inspection, non-tender, supple, full range of motion Respiratory Status Yes: trachea midline, chest symmetrical, non tender chest. No: respiratory distress. Lung Sounds bilateral: normal breath sounds, lungs clear. Cardiovascular normal exam, regular rate/rhythm, no peripheral edema, no gallop, no JVD, no murmur, no rub, normal peripheral pulses Peripheral Pulses Pulses normal Yes Gastrointestinal normal bowel sounds, normal exam, non tender, soft, no organomegaly Back normal inspection, no CVA tenderness, no vertebral tenderness Extremities non-tender, normal range of motion, normal inspection Neurologic alert, laser cutter II-XII nml as tested, normal exam, oriented x 3 Reflexes Reflexes normal Yes Mental status normal mood/affect Skin intact, normal color, warm/dry Medical Decision Making LABS/Meds/Orders Pt receiving controlled substance in ED? No Results/Orders Laboratory Tests 01/09/17 0950: Magnesium 1.7, Troponin I < 0.02 01/09/17 0934: Sodium 139, Potassium 3.6, Chloride 103, Carbon Dioxide 28, BUN 8, Creatinine 0.9, Estimated Creat Clear 102, Estimated GFR (MDRD) 64, Glucose 109 H, Calcium 8.7, Total Bilirubin 0.5, AST 10 L, ALT 12, Alkaline Phosphatase 144 H, Total Protein 7.4, Albumin 3.8, Globulin 3.6 H, Albumin/Globulin Ratio 1.1, Amylase 47, Lipase 87, WBC 4.4 L, RBC 4.14 L, Hgb 10.5 L, Hct 34.2 L, MCV 82.8, RDW 16.6, Plt Count 128 L, MPV 10.2, Gran % 60.7, Gran # 2.7, Lymphocytes % 29.6, Monocytes % 3.6, Eosinophils % 4.6, Basophils % 1.6, Lymphocytes # 1.3, Monocytes # 0.2, Eosinophils # 0.2, Basophils # 0.1, PUBS MCHC 30.7 L, MCH 25.4 L Current Medication Orders Sig/Rich Start time Last Medication Dose Route Stop Time Status Admin Ondansetron HCl 0 .STK-MED ONE 01/09 1013 DC .ROUTE Sodium Chloride 1,000 ML .STK-MED ONE 01/093 DC IV Loperamide HCl 0 .STK-MED ONE 01/09 1012 DC PO Loperamide HCl 4 MG ONCE ONE 01/09 1000 DC 01/09 PO 01/09 1001 1019 Ondansetron HCl 4 MG ONCE ONE 01/09 1000 DC 01/09 IV 01/09 1001 1019 Sodium Chloride 10 ML PRN PRN 01/09 945 AC IV 01/10 0936 Sodium Chloride 1,000 ML .Q1H1M 01/09 945 DC 01/09 IV 01/09 1045 1018 Sodium Chloride 10 ML PRN PRN 01/09 945 AC IV 01/10 945 Ibuprofen 0 .STK-MED ONE 01/09 935 DC PO Orders Procedure Date/time Status DIET-CLEAR LIQUID 01/09 L Active ABD ACUTE(MUL VIEWS) 01/09 1045 Active TROPONIN I 01/09 946 Complete MAGNESIUM 01/09 946 Complete IV SALINE LOCK 01/10 936 Active URINALYSIS/COMPLETE 01/10 936 Active LIPASE 01/10 936 Complete DIARRHEA PANEL, PCR 01/10 936 Active CBC WITH AUTO DIFF 01/10 936 Complete CHEM 12 PROFILE 01/10 936 Complete AMYLASE 01/10 936 Complete XRAY/CT/US XRAY/CT/US XRAY chest, abdomen XR interpretation by reviewed by me Xray Results normal/NAD, no infiltrates Comment Chest x-ray shows no acute infiltrates. No free air. Abdominal views shows no free air nor air-fluid level no acute findings. Departure Departure Time of Disposition 1147 Disposition DC Home or Self Care(routine) Clinical Impression Primary Impression: Vomiting and diarrhea Secondary Impressions: Anemia, CAD (coronary artery disease), House infested Condition STABLE Referrals Ramin Strickland MD (Family) Additional Instructions The patient was seen here 4 days ago her labs are essentially unchanged. I called Dr. Strickland her primary care physician and history examination her LEFT findings and x-rays. He advised her symptomatically with an outpatient follow- up. Patient had no VOMITING OR diarrhea IN THE ED. she remains stable and TOLERATED PO INTAKE. 1- GOTRADE 16 OZ Q 4. 2- ZOFRAN Q 8 PRN 3- IMODIUM 2 MG PRN 4- BRAT DIET TOLORROW. 5- F/U WITH DR STRICKLAND IN AM. Discharge Counseling Counseled pt/family regarding diagnosis, test results, medications/RX, home care, follow up needs Prescriptions Current Visit Scripts Ondansetron (Zofran Odt) 4 MG PO Q8HP PRN NAUSEA #6 ODT Loperamide HCl (Imodium A-D) 2 MG PO Q8HP PRN DIARRHEA #15 CAPSULE ED Critical Care Critical Care No If Critical Care minutes are documented, the time involved in the performance of seperately reportable procedures was not counted toward critical care time documented. I directly delivered medical care to this critically ill and/or injured patient. Timely evaluation and treatment was necessary to address the significant organ system(s) dysfunction present in this patient. at 1153
--- OUTSIDE RECORDS SUMMARY | 2017-01-09 11:10 | External Medical Summary Rpt | CCD ---
Author Author , [facility] Organization [facility] Address Unknown Phone Care Team Providers Care Emission Specialist Name Role Phone [facility], Unavailable Unavailable [facility] Nubia Luna MD, Unavailable Unavailable Nubia Lizarraga MD, Unavailable Unavailable Sierra TOUSSAINT MD, Unavailable Unavailable AMADO Danielson Unavailable Unavailable FERNANDA CALDERON, Sam Danielson III, MD Purpose Continuity of Care Document - 05-16-2009 through 2016 Problems Code Diagnosis DOS Provider Status 276.51 276.51 04-23-2013 [place] DEHYDRATION [facility] 305.1 305.1 04-23-2013 [place] TOBACCO USE [facility] DISORDER [facility] 401.9 401.9 04-23-2013 [place] HYPERTENSIO [facility] N NOS Hospital 724.2 724.2 04-23-2013 [place] LUMBAGO [facility] 780.39 780.39 04-23-2013 [place] OTHER [facility] CONVULSIONS [facility] V14.8 V14.8 04-23-2013 [place] HX-DRUG [facility] ALLERGY [facility] Hospital 787.01 787.01 03-19-2013 [place] NAUSEA WITH [facility] VOMITING [facility] 787.91 787.91 03-19-2013 [place] DIARRHEA [facility] [phone] OLD 10-22-2012 [place] MYOCARDIAL [facility] INFARCT [facility] 413.9 413.9 10-22-2012 [place] ANGINA [facility] PECTORIS [facility] NEC/NOS 564.1 564.1 10-22-2012 [place] IRRITABLE [facility] BOWEL [facility] SYNDROME 782.0 782.0 SKIN 10-22-2012 [place] SENSATION [facility] DISTURB [facility] 789.03 789.03 10-22-2012 [place] ABDOMINAL [facility] PAIN, RIGHT Hospital LOWER QUADRANT [phone] CHR 10-08-2012 [place] AIRWAY 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 I21.3 ST ELEVATION (STEMI) MYOCARDIAL [facility] SITE I25.10 ATHSCL HEART DISEASE OF [place] CORONARY ARTERY W/O ANG PCTRS I48.0 PAROXYSMAL ATRIAL FIBRILLATIO N J20.9 ACUTE BRONCHITIS, UNSPECIFIED J40 BRONCHITIS, NOT SPECIFIED ACUTE OR CHRONIC K29.70 GASTRITIS, UNSPECIFIED , WITHOUT BLEEDING M19.90 UNSPECIFIED OSTEOARTHRI TIS, UNSPECIFIED SITE M54.9 DORSALGIA, UNSPECIFIED N39.0 URINARY TRACT INFECTION, SITE NOT SPECIFIED R00.2 PALPITATION S R07.89 OTHER CHEST PAIN R11.10 VOMITING, UNSPECIFIED R19.7 DIARRHEA, UNSPECIFIED R51 HEADACHE R53.81 OTHER MALAISE R55 SYNCOPE AND COLLAPSE S00.83XA CONTUSION OF OTHER PART OF HEAD, INITIAL ENCOUNTER S46.919A STRAIN UNSP MUSC/FASC/T END AT SHLDR/UP ARM, UNSP ARM, INIT S73.109A UNSPECIFIED SPRAIN OF UNSPECIFIED HIP, INITIAL ENCOUNTER S83.90XA SPRAIN OF UNSPECIFIED SITE OF UNSPECIFIED KNEE, INIT ENCNTR S90.00XA CONTUSION OF UNSPECIFIED ANKLE, INITIAL ENCOUNTER T14.8 OTHER INJURY OF UNSPECIFIED BODY REGION W19.XXXA UNSPECIFIED FALL, INITIAL ENCOUNTER Z59.8 OTHER PROBLEMS RELATED TO HOUSING AND ECONOMIC CIRCUMSTANC ES Allergies, Adverse Reactions, Alerts Type Allergy to [...] HEART HURT Intermediate WORSE'-speeds up heart rate Medications Na ND Rx Da Fi Fi Am Da Di Ph RX Ph St me C No te ll ll ou ys ag ar # ys at rm s nt no ma ic us Or Da si cy ia de te s n re d SO 00 02 0 No DI 40 [...] ti ML ve Sy ri ng e SO 00 01 0 No DI 40 -1 UM 97 3- Lo 98 20 ng CH 30 14 er LO 9 RI Ac DE ti ve 0. 9% SO BAKARI TI ON Sa 63 01 0 No li 80 -1 ne 70 3- Lo 10 20 ng Fl 07 14 er us 5 h Ac 10 ti ML ve Sy ri ng e ON 00 01 0 No DA 64 -1 NS 16 3- Lo ET 08 20 ng RO 02 14 er N 5 HC Ac L ti 4 ve MG /2 ML AL KE 00 08 0 No TO 40 -0 RO 93 4- Lo LA 79 20 ng C 60 13 er 60 1 Ac MG ti /2 ve ML AL De 00 08 0 No xa 51 [...] ve BL ET TA KE HO ME OR 37 10 10 0 60 30 CL 24 CO Ac IL 00 -1 -1 .0 IN 74 OP ti OS 00 3- 3- 00 IC 16 ER ve EC 45 20 20 50 11 11 PH DUARTE OT 3 AR HN C MA G 20 CY .6 LL MG C TA BL ET VE 51 10 10 0 30 30 CL 24 CO Ac SI 24 -1 -1 .0 IN 74 OP ti CA 80 3- 3- 00 IC 15 ER ve RE 15 20 20 10 11 11 PH DUARTE 10 1 AR HN MA G MG CY TA LL BL C ET DI 00 10 10 0 90 30 CL 24 CO Ac AZ 59 -1 -1 .0 IN 74 OP ti EP 15 3- 3- 00 IC 14 ER ve AM 61 20 20 5 91 11 11 PH DUARTE 0 AR HN MG MA G CY TA BL LL ET C ME 68 06 10 5 60 30 CL 23 CO Ac LO 18 -0 -1 .0 IN 97 OP ti XI 00 3- 2- 00 IC 15 ER ve CA 50 20 20 M 10 11 11 PH DUARTE 7. 1 AR HN 5 MA G MG CY TA LL BL C ET HY 00 04 10 2 15 30 CL [address] 60 -1 -1 .0 IN 68 OP ti OC 33 8- 2- 00 IC 30 ER ve HL 85 20 20 OR 63 11 11 PH DUARTE OT 2 AR HN HI MA G AZ CY ID E LL 25 C MG TA B 00 08 10 5 30 30 CL 24 CO Ac PI 90 -1 -1 .0 IN 35 OP ti RI 42 1- 2- 00 IC 93 ER ve N 01 20 20 EC 36 11 11 PH DUARET 0 AR HN 32 MA G 5 [...] LL G C IN CHO LE R LI 00 08 10 5 30 30 CL 24 CO Ac SI 37 -1 -1 .0 IN 35 OP ti NO 82 1- 2- 00 IC 76 ER ve OR 07 20 20 IL 20 11 11 PH DUARTE 1 AR HN 2. MA G 5 CY MG LL TA C BL ET PO 00 08 10 5 30 30 CL 24 CO Ac TA 78 -1 -1 .0 IN 35 OP ti SS 15 1- 2- 00 IC 75 ER ve IU 72 20 20 M 01 11 11 PH DUARTE CL 0 AR HN MA G ER CY 20 LL C ME Q TA BL ET ME 00 07 10 5 30 30 CL 24 CO Ac TO 09 -0 -1 .0 IN 17 OP ti OR 30 8- 2- 00 IC 72 ER ve OL 73 20 20 OL 31 11 11 PH DUARTE 0 AR HN TA MA G RT CY RA TE LL C 50 MG TA B VY 66 07 10 5 30 30 [...] AR HN MA G CY LL C OR 37 09 09 0 60 30 CL 24 CO Ac IL 00 -1 -1 .0 IN 54 OP ti OS 00 2- 2- 00 IC 46 ER ve EC 45 20 20 50 11 11 PH DUARTE OT 3 AR HN C MA G 20 CY .6 LL MG C TA BL ET 14 08 09 5 60 30 CL 24 CO Ac 55 -1 -1 .0 IN 35 OP ti 00 1- 2- 00 IC 94 ER ve 51 20 20 20 11 11 PH DUARTE 4 AR HN MA G CY LL C 00 08 09 5 30 30 CL 24 CO Ac PI 90 -1 -1 .0 IN 35 OP ti RI 42 1- 2- 00 IC 93 ER ve N 01 20 20 EC 36 11 11 PH DUARTE 0 AR HN 32 MA G 5 CY MG LL TA C BL ET ME 68 06 09 5 60 30 CL 23 CO Ac LO 18 -0 -1 .0 IN 97 OP ti XI 00 3- 2- 00 IC 15 ER ve CA 50 20 20 M 10 11 11 PH DUARTE 7. 1 AR HN 5 MA G MG CY TA LL BL C ET VE 51 04 09 4 30 30 CL 23 CO Ac SI 24 -1 -1 .0 IN 68 OP ti CA 80 8- 2- 00 IC 32 ER ve RE 15 20 20 10 11 11 PH DUARTE 10 1 AR HN MA G MG CY TA LL BL C ET HY 00 04 09 2 15 30 CL [address] 60 -1 -1 .0 IN 68 OP ti OC 33 8- 2- 00 IC 30 ER ve HL 85 20 20 OR 63 11 11 PH DUARTE OT 2 AR HN HI MA G AZ CY ID E LL 25 C MG TA B VE 00 08 09 5 18 25 CL 24 CO Ac NT 17 -1 -1 .0 IN 35 OP ti OL 30 1- 2- 00 IC 77 ER ve IN 68 20 20 22 11 11 PH DUARTE HF 0 AR HN A MA G 90 CY MC LL G C IN CHO LE R LI 00 08 09 5 30 30 CL 24 CO Ac SI 37 -1 -1 .0 IN 35 OP ti NO 82 1- 2- 00 IC 76 ER ve OR 07 20 20 IL 20 11 11 PH DUARTE 1 AR HN 2. MA G 5 CY MG LL TA C BL ET PO 00 08 09 5 30 30 CL 24 CO Ac TA 78 -1 -1 .0 IN 35 OP ti SS 15 1- 2- 00 IC 75 ER ve IU 72 20 20 M 01 11 11 PH DUARTE CL 0 AR HN MA G ER CY 20 LL C ME Q TA BL ET DI 00 08 09 1 90 30 CL 24 CO Ac AZ 59 -1 -1 .0 IN 35 OP ti EP 15 1- 2- 00 IC 74 ER ve AM 61 20 20 5 91 11 11 PH DUARTE 0 AR HN MG MA G CY TA BL LL ET C ME 00 07 09 5 30 30 CL 24 CO Ac TO 09 -0 -1 .0 IN 17 OP ti OR 30 8- 2- 00 IC 72 ER ve OL 73 20 20 OL 31 11 11 PH DUARTE 0 AR HN TA MA G RT CY RA TE LL C 50 MG TA B VY 66 07 09 5 30 30 CL 24 CO Ac TO 58 -0 -1 .0 IN 17 OP ti RI 20 8- 2- 00 IC 71 ER ve N 31 20 20 10 35 11 11 PH DUARTE -4 4 AR HN 0 MA G MG CY TA LL BL C ET 14 08 08 5 60 30 CL 24 CO Ac 55 -1 -1 .0 IN 35 OP ti 00 1- 1- 00 IC 94 ER ve 51 20 20 20 11 11 PH DUARTE 4 AR HN MA G CY LL C 00 08 08 5 30 30 CL [...] LL G C IN CHO LE R LI 00 08 08 5 30 30 CL 24 CO Ac SI 37 -1 -1 .0 IN 35 OP ti NO 82 1- 1- 00 IC 76 ER ve OR 07 20 20 IL 20 11 11 [...] LL C ME Q TA BL ET DI 00 08 08 1 90 30 CL 24 CO Ac AZ 59 -1 -1 .0 IN 35 OP ti EP 15 1- 1- 00 IC 74 ER ve AM 61 20 20 5 91 11 11 PH DUARTE 0 AR HN MG MA G CY TA BL LL ET C ME 00 07 08 5 30 30 CL 24 CO Ac TO 09 -0 -1 .0 IN 17 OP ti OR 30 8- 0- 00 IC 72 ER ve OL 73 20 20 OL 31 11 11 PH DUARTE 0 AR HN TA MA G RT CY RA TE LL C 50 MG TA B VY 66 07 08 5 30 30 [...] CY TA LL BL C ET VE 51 04 08 4 30 30 CL 23 CO Ac SI 24 -1 -1 .0 IN 68 OP ti CA 80 8- 0- 00 IC 32 ER ve RE 15 20 20 10 11 11 PH DUARTE 10 1 AR HN MA G MG CY TA LL BL C ET HY 00 04 08 2 15 30 CL [address] 60 -1 -1 .0 IN 68 OP ti OC 33 8- 0- 00 IC 30 ER ve HL 85 20 20 OR 63 11 11 PH DUARTE OT 2 AR HN HI MA G AZ CY ID E LL 25 C MG TA B OR 37 02 08 5 60 30 CL 23 CO Ac IL 00 -1 -1 .0 IN 27 OP ti OS 00 5- 0- 00 IC 14 ER ve EC 45 20 20 50 11 11 PH DUARTE OT 3 AR HN C MA G 20 CY .6 LL MG C TA BL ET TR 65 07 07 0 15 5 CL 24 GA Ac AM 16 -0 -0 .0 IN 17 IN ti AD 20 8- 9- 00 IC 98 EY ve OL 62 20 20 71 11 11 PH KS HC 1 AR CH L MA AE 50 CY L S MG LL C TA BL ET DI 00 07 07 0 90 30 CL 24 CO Ac AZ 59 -0 -0 .0 IN 17 OP ti EP 15 8- 8- 00 IC 73 ER ve AM 61 20 20 5 91 11 11 PH DUARTE 0 AR HN MG MA G CY TA BL LL ET C ME 00 07 07 5 30 30 CL 24 CO Ac TO 09 -0 -0 .0 IN 17 OP ti OR 30 8- 8- 00 IC 72 ER ve OL 73 20 20 OL 31 11 11 PH DUARTE 0 AR HN TA MA G RT CY RA TE LL C 50 MG TA B VY 66 07 07 5 30 30 CL 24 CO Ac TO 58 -0 -0 .0 IN 17 OP ti RI 20 8 8- 00 IC 71 ER ve N 31 20 20 10 35 11 11 PH DUARTE -4 4 AR HN 0 MA G MG CY TA LL BL C ET ME 68 06 07 5 60 30 CL 23 CO Ac LO 18 -0 -0 .0 IN 97 OP ti XI 00 3 00 IC 15 ER ve CA 50 20 20 M 10 11 11 PH DUARTE 7. 1 AR HN 5 MA G MG CY TA LL BL C ET VE 51 04 07 4 30 30 CL 23 CO Ac SI 24 -1 -0 .0 IN 68 OP ti CA 80 8- 8- 00 IC 32 ER ve RE 15 20 20 10 11 11 PH DUARTE 10 1 AR HN MA G MG CY TA LL BL C ET HY 00 04 07 2 15 30 CL [address] 60 -1 -0 .0 IN 68 OP ti OC 33 8- 8- 00 IC 30 ER ve HL 85 20 20 OR 63 11 11 PH DUARTE OT 2 AR HN HI MA G AZ CY ID E LL 25 C MG TA B OR 37 02 07 5 60 30 CL 23 CO Ac IL 00 -1 -0 .0 IN 27 OP ti OS 00 5- 8- 00 IC 14 ER ve EC 45 20 20 50 11 11 PH DUARTE OT 3 AR HN C MA G 20 CY .6 LL MG C TA BL ET 14 02 07 4 60 30 CL 23 CO Ac 55 -1 -0 .0 IN 27 OP ti 00 5- 8- 00 IC 13 ER ve 51 20 20 20 11 11 PH DUARTE 4 AR HN MA G CY LL C LI 00 02 07 5 30 30 CL 23 CO Ac SI 37 -0 -0 .0 IN 18 OP ti NO 82 2- 8- 00 IC 13 ER ve OR 07 20 20 IL 20 11 11 PH DUARTE 1 AR HN 2. MA G 5 CY MG LL TA C BL ET PO 00 02 07 5 30 30 CL 23 CO Ac TA 78 -0 -0 .0 IN 18 OP ti SS 15 2- 8- 00 IC 12 ER ve IU 72 20 20 M 01 11 11 PH DUARTE CL 0 AR HN MA G ER CY 20 LL C ME Q TA BL ET VE 00 02 07 5 18 25 CL 23 CO Ac NT 17 -0 -0 .0 IN 18 OP ti OL 30 2- 8- 00 IC 11 ER ve IN 68 20 20 22 11 11 PH DUARTE HF 0 AR HN A MA G 90 CY MC LL G C IN CHO LE R 00 02 07 5 30 30 CL 23 CO Ac PI 90 -0 -0 .0 IN 18 OP ti RI 42 2- 8- 00 IC 10 ER ve N 01 20 20 EC 36 11 11 PH DUARTE 0 AR HN 32 MA G 5 CY MG LL TA C BL ET OR 68 06 06 0 12 2 CL [...] TA BL LL ET C VE 51 04 06 4 30 30 CL 23 CO Ac SI 24 -1 -0 .0 IN 68 OP ti CA 80 8- 2- 00 IC 32 ER ve RE 15 20 20 10 11 11 PH DUARTE 10 1 AR HN MA G MG CY TA LL BL C ET HY 00 04 06 2 15 30 CL [address] 60 -1 -0 .0 IN 68 OP ti OC 33 8- 2- 00 IC 30 ER ve HL 85 20 20 OR 63 11 11 PH DUARTE OT 2 AR HN HI MA G AZ CY ID E LL 25 C MG TA B OR 37 02 06 5 60 30 CL 23 CO Ac IL 00 -1 -0 .0 IN 27 OP ti OS 00 5- 2- 00 IC 14 ER ve EC 45 20 20 50 11 11 PH DUARTE OT 3 AR HN C MA G 20 CY .6 LL MG C TA BL ET 14 02 06 4 60 30 CL 23 CO Ac 55 -1 -0 .0 IN 27 OP ti 00 5- 2- 00 IC 13 ER ve 51 20 20 20 11 11 PH DUARTE 4 AR HN MA G CY LL C LI 68 02 06 5 30 30 CL 23 CO Ac SI 18 -0 -0 .0 IN 18 OP ti NO 00 2- 2- 00 IC 13 ER ve OR 51 20 20 IL 20 11 11 PH DUARTE 2 AR HN 2. MA G 5 CY MG LL TA C BL ET PO 00 02 06 5 30 30 CL 23 CO Ac TA 78 -0 -0 .0 IN 18 OP ti SS 15 2- 2- 00 IC 12 ER ve IU 72 20 20 M 01 11 11 PH DUARTE CL 0 AR HN MA G ER CY 20 LL C ME Q TA BL ET VE 00 02 06 5 18 25 CL 23 CO Ac NT 17 -0 -0 .0 IN 18 OP ti OL 30 2- 2- 00 IC 11 ER ve IN 68 20 20 22 11 11 PH DUARTE HF 0 AR HN A MA G 90 CY MC LL G C IN CHO LE R 00 02 06 5 30 30 CL 23 CO Ac PI 90 -0 -0 .0 IN 18 OP ti RI 42 2- 2- 00 IC 10 ER ve N 01 20 20 EC 36 11 11 PH DUARTE 0 AR HN 32 MA G 5 CY MG LL TA C BL ET VY 66 12 06 5 30 30 [...] -0 -0 .0 IN 84 OP ti OR 30 9- 2- 00 IC 35 ER ve OL 73 20 20 OL 31 10 11 PH DUARTE 0 AR HN TA MA G RT CY RA TE LL C 50 MG TA B DI 00 04 05 1 90 30 CL 23 CO Ac AZ 59 -2 -0 .0 IN 75 OP ti EP 15 9- 2- 00 IC 00 ER ve AM 61 20 20 5 91 11 11 PH DUARTE 0 AR HN MG MA G CY TA BL LL ET C VY 66 12 04 5 30 30 [...] 2- 8- 00 IC 13 ER ve OR 51 20 20 IL 20 11 11 [...] AR HN MA G CY LL C OR 37 02 04 5 60 30 CL [...] -0 -2 .0 IN 84 OP ti OR 30 9- 8- 00 IC 35 ER ve OL 73 20 20 OL 31 10 11 PH DUARTE 0 AR HN TA MA G RT CY RA TE LL C 50 MG TA B HY 00 04 04 2 15 30 [...] TA LL BL C ET VE 00 02 03 5 18 25 CL 23 CO Ac NT 17 -0 -1 .0 IN 18 OP ti OL 30 2- 7- 00 IC 11 ER ve IN 68 20 20 22 11 11 PH DURATE HF 0 AR HN A MA G [...] 2- 7- 00 IC 13 ER ve OR 51 20 20 IL 20 11 11 [...] -0 -1 .0 IN 84 OP ti OR 30 9- 7- 00 IC 35 ER ve OL 73 20 20 OL 31 10 11 PH DUARTE 0 AR HN TA MA G RT CY RA TE LL C 50 MG TA B VY 66 12 03 5 30 30 CL 22 CO Ac TO 58 -0 -1 .0 IN 84 OP ti RI 20 9- 7- IC 37 ER ve N 31 20 20 10 35 10 11 PH DUARTE -4 4 AR HN 0 MA G MG CY TA LL BL C ET ME 68 12 03 4 60 30 CL 22 CO Ac LO 18 -0 -1 .0 IN 84 OP ti XI 00 9- 7 IC 38 ER ve CA 50 20 [...] CY MG LL TA C BL ET OR 37 02 02 5 60 30 CL [...] 02 5% LL C CR EA M LI 00 02 02 5 30 30 CL 23 CO Ac SI 37 -0 -0 .0 IN 18 OP ti NO 82 2- 2- 00 IC 13 ER ve OR 07 20 20 IL 20 11 11 PH DUARTE 1 AR HN 2. MA G 5 CY MG LL TA C BL ET PO 62 02 02 5 30 30 CL 23 CO Ac TA 03 -0 -0 .0 IN 18 OP ti SS 70 2- 2- 00 IC 12 ER ve IU 99 20 20 M 90 11 11 PH DUARTE CL 5 AR HN MA G ER CY 20 LL C ME Q TA BL ET VE 00 02 02 5 18 25 CL 23 CO Ac NT 17 -0 -0 .0 IN 18 OP ti OL 30 2- 2- 00 IC 11 ER ve IN 68 20 20 22 11 11 PH DUARTE HF 0 AR HN A MA G 90 CY MC LL G C IN CHO LE R 00 02 02 5 30 30 CL 23 CO Ac PI 90 -0 -0 .0 IN 18 OP ti RI 42 2- 2- 00 IC 10 ER ve N 01 20 20 EC 36 11 11 PH DUARTE 0 AR HN 32 MA G 5 CY MG LL TA C BL ET VY 66 12 02 5 30 30 CL 22 CO Ac TO 58 -0 -0 .0 IN 84 OP ti RI 20 9- 2- 00 IC 37 ER ve N 31 20 20 10 35 10 11 PH DUARTE -4 4 AR HN 0 MA G MG CY TA LL BL C ET ME 00 12 02 5 30 30 CL 22 CO Ac TO 09 -0 -0 .0 IN 84 OP ti OR 30 9- 2- 00 IC 35 ER ve OL 73 20 20 OL 31 10 11 PH DUARTE 0 AR HN TA MA G RT CY RA TE LL C 50 MG TA B 00 10 02 4 30 30 CL 22 CO Ac 07 -0 -0 .0 IN 43 OP ti 80 4- 2- 00 IC 04 ER ve 42 20 20 01 10 11 PH DUARTE 5 AR HN MA G CY LL C ME 68 12 01 4 60 30 CL 22 CO Ac LO 46 -0 -0 .0 IN 84 OP ti XI 20 9- 7- 00 IC 38 ER ve CA 14 20 20 M 00 10 11 PH DUARTE 7. 1 AR HN 5 MA G MG CY TA LL BL C ET DI 00 12 01 1 90 30 CL 22 CO Ac AZ 59 -1 -0 .0 IN 84 OP ti EP 15 0- 7- 00 IC 90 ER ve AM 61 20 20 5 91 10 11 PH DUARTE 0 AR HN MG MA G CY TA BL LL ET C NI 00 01 01 3 25 25 CL 23 NO Ac TR 07 -0 -0 .0 IN 01 RF ti OS 10 7- 7- 00 IC 67 LE ve TA 41 20 20 ET T 81 11 11 PH R 0. 3 AR 4 MA HE MG CY NR Y TA LL BL C ET SL PO 62 08 01 5 30 30 [...] -0 -0 .0 IN 84 OP ti OR 30 9- 5- 00 IC 35 ER [...] 2- 5- 00 IC 60 ER ve OR 07 20 20 IL 20 10 11 PH DUARTE 1 AR HN 2. MA G 5 CY MG LL TA C BL ET ME 68 12 12 4 60 [...] 2- 6- 00 IC 60 ER ve OR 07 20 20 IL 20 10 10 [...] -0 -0 .0 IN 26 OP ti OR 30 3- 6- 00 IC 58 ER [...] HN MA G CY LL C VE 00 08 11 5 18 25 [...] -0 -0 .0 IN 26 OP ti OR 30 3- 5- 00 IC 58 ER [...] 2- 5- 00 IC 60 ER ve OR 51 20 20 IL 20 10 10 [...] LL TA C BL ET LI 00 08 10 5 30 30 CL 22 CO Ac SI 37 -0 -0 .0 IN 06 OP ti NO 82 2- 4- 00 IC 60 ER ve OR 07 20 20 IL 20 10 10 [...] -0 -0 .0 IN 26 OP ti OR 30 3- 4- 00 IC 58 ER [...] G CY LL C VY 66 06 10 5 30 30 [...] TA LL BL C ET DI 00 09 09 1 90 30 [...] -0 -0 .0 IN 26 OP ti OR 30 3- 3- 00 IC 58 ER [...] 2- 2- 00 IC 60 ER ve OR 07 20 20 IL 20 10 10 [...] 20 20 EC 99 10 10 PH DAURTE 6 AR HN 32 MA G 5 [...] 5 AR C MA CY LL C 00 08 08 0 30 30 CL 22 AD Ac 07 -0 -0 .0 IN 06 KI ti 80 2- 2- 00 IC 85 NS ve 42 20 20 01 10 10 PH TI 5 AR MO MA TH CY Y D LL C ME 00 04 08 3 60 30 CL 21 CO Ac TO 09 -3 -0 .0 IN 54 OP ti OR 30 0- 2- 00 IC 96 ER [...] 2- 2- 00 IC 60 ER ve OR 07 20 20 IL 20 10 10 [...] LL G C IN CHO LE R PE 00 07 07 0 40 10 [...] CY TA BL LL ET C 00 01 07 5 30 30 CL 20 AD Ac 07 -1 -0 .0 IN 88 KI ti 80 5- 1- 00 IC 25 NS ve 42 20 20 01 10 10 PH TI 5 AR MO MA TH CY Y D LL C VE 00 01 07 5 18 25 [...] -3 -0 .0 IN 54 OP ti OR 30 0- 1- 00 IC 96 ER [...] LL BL C ET PO 00 01 07 5 30 30 [...] 1- 1- 00 IC 35 ER ve OR 75 20 20 IL 76 10 10 PH DUARTE 0 AR HN 2. MA G 5 CY MG LL TA C BL ET DI 00 06 06 0 90 30 [...] 1- 1- 00 IC 35 ER ve OR 75 20 20 IL 76 10 10 [...] -3 -0 .0 IN 54 OP ti OR 30 0- 1- 00 IC 96 ER [...] TA LL BL C ET 00 01 06 5 30 30 [...] 1% CY CR LL EA C M VY 66 04 04 0 30 30 CL 21 CO Ac TO 58 -3 -3 .0 IN 55 OP ti RI 20 0- 0- 00 IC 00 ER ve N 31 20 20 10 33 10 10 PH DUARTE -4 1 AR HN 0 MA G MG CY TA LL BL C ET DI 00 04 04 0 90 30 CL 21 CO Ac AZ 59 -3 -3 .0 IN 54 OP ti EP 15 0- 0- 00 IC 97 ER ve AM 61 20 20 5 91 10 10 PH DUARTE 0 AR HN MG MA G CY TA BL LL ET C ME 00 04 04 3 60 30 CL 21 CO Ac TO 09 -3 -3 .0 IN 54 OP ti OR 30 0- 0- 00 IC 96 ER ve OL 73 20 20 OL 31 10 10 PH DUARTE 0 AR HN TA MA G RT CY RA TE LL C 50 MG TA B ME 68 03 04 3 60 30 CL 21 CO Ac LO 18 -1 -2 .0 IN 25 OP ti XI 00 2 9 IC 10 ER ve CA 50 20 20 M 10 10 10 PH DUARTE 7. 1 AR HN 5 MA G MG CY TA LL BL C ET VE 00 01 04 5 18 25 CL 20 CO Ac NT 17 -1 -2 .0 IN 85 OP ti OL 30 9 00 IC 36 ER ve IN 68 20 20 22 10 10 PH DUARTE HF 0 AR HN A MA G 90 CY MC LL G C IN CHO LE R LI 00 01 04 5 30 30 CL 20 CO Ac SI 37 -1 -2 .0 IN 85 OP ti NO 82 IC 35 ER ve OR 07 20 20 IL 20 10 10 PH DUARTE 1 AR HN 2. MA G 5 CY MG LL TA C BL ET 37 01 04 5 30 30 CL 20 CO Ac PI 20 -1 -2 .0 IN 85 OP ti RI 50 9 IC 34 ER ve N 42 20 20 EC 99 10 10 PH DUARTE 6 AR HN 32 MA G 5 CY MG LL TA C BL ET PO 62 01 04 5 30 30 CL 20 CO Ac TA 03 -1 -2 .0 IN 85 OP ti SS 70 9 IC 33 ER ve IU 99 20 20 M 90 10 10 PH DUARTE CL 5 AR HN MA G ER CY 20 LL C ME Q TA BL ET 00 01 04 5 30 30 [...] G CY TA BL LL ET C 60 03 03 0 18 5 CL 21 NO Ac 25 -2 -2 0. IN 33 RF ti 80 6- 6- 00 IC 99 LE ve 41 20 20 0 ET 51 10 10 PH R 6 AR MA HE CY NR Y LL C OR 68 03 03 0 20 5 CL 21 NO Ac OM 38 -2 -2 .0 IN 33 RF ti ET 20 6- 6- 00 IC 98 LE ve CHO 04 20 20 ET ZI 10 10 10 PH R NE 1 AR MA HE 25 CY NR Y MG LL C TA BL ET CE 00 03 03 0 30 10 CL 21 NO Ac PH 09 -2 -2 .0 IN 33 RF ti AL 33 6- 6- 00 IC 97 LE ve EX 14 20 20 ET IN 70 10 10 PH R 1 AR 50 MA HE 0 CY NR MG Y LL CA C PS UL E ME 68 03 03 3 60 30 CL 21 CO Ac LO 18 -1 -1 .0 IN 25 OP ti XI 00 2- 2- 00 IC 10 ER ve CA 50 20 20 M 10 10 10 PH DUARTE 7. 1 AR HN 5 MA G MG CY TA LL BL C ET VE 00 01 03 5 18 25 CL 20 CO Ac NT 17 -1 -1 .0 IN 85 OP ti OL 30 1- 2- 00 IC 36 ER ve IN 68 20 20 22 10 10 PH DUARTE HF 0 AR HN A MA G 90 CY MC LL G C IN CHO LE R LI 00 01 03 5 30 30 CL 20 CO Ac SI 37 -1 -1 .0 IN 85 OP ti NO 82 1- 2- 00 IC 35 ER ve OR 07 20 20 IL 20 10 10 PH DUARTE 1 AR HN 2. MA G 5 CY MG LL TA C BL ET 37 01 03 5 30 30 CL 20 CO Ac PI 20 -1 -1 .0 IN 85 OP ti RI 50 1- 2- 00 IC 34 ER ve N 42 20 20 EC 99 10 10 PH DUARTE 6 AR HN 32 MA G 5 CY MG LL TA C BL ET PO 62 01 03 5 30 30 CL 20 CO Ac TA 03 -1 -1 .0 IN 85 OP ti SS 70 1- 2- 00 IC 33 ER ve IU 99 20 20 M 90 10 10 PH DUARTE CL 5 AR HN MA G ER CY 20 LL C ME Q TA BL ET ME 00 10 03 5 30 30 CL 20 CO Ac TO 09 -0 -1 .0 IN 22 OP ti OR 30 7- 2- 00 IC 14 ER ve OL 73 20 20 OL 31 09 10 PH DUARTE 0 AR HN TA MA G RT CY RA TE LL C 50 MG TA B VY 66 10 03 5 30 30 [...] MA TH CY Y D LL C Vital Signs 04-23-2013 18:32 Name Value Interpretat [...] Order Detail nces retati t Range on CBC w auto diff (01-09-2017 09:34) Baso % 01-09-2 = 1.6 % 0.1-2.0 complet 017 ed 09:34 Automat 2 = 0.1 0-0.2 complet ed 017 K/MM3 ed blood 09:34 basophi l count (count/ vo Automat = 0.2 0.0-0.4 complet ed 017 K/mm3 ed blood 09:34 eosinop hil count Automat = 4.6 % 0.1-12. complet ed 017 0 ed blood 09:34 eosinop hils/10 0 leukocy t Blood = 2.7 1.8-7.8 complet granulo 017 K/mm3 ed cytes 09:34 automat ed count (numb Granulo = 60.7 37.0-80 complet cyte 017 % .0 ed percent 09:34 age Blood = 34.2 37.0-47 complet hematoc 017 % .0 ed rit 09:34 (volume fractio n) Blood = 10.5 12.2-16 complet hemoglo 017 g/dL .2 ed bin 09:34 measure ment (mass/v olum Absolut = 1.3 0.7-4.5 complet e 017 K/mm3 ed lymphoc 09:34 yte count Lymphoc = 29.6 10-50.0 complet yte 017 % ed count, 09:34 blood, automat ed Mean = 25.4 27-31.2 complet corpusc 017 pg ed ular 09:34 hemoglo bin (MCH) determ Automat = 30.7 31.8-35 complet ed 017 g/dl .4 ed erythro 09:34 cyte mean corpusc ular h Automat = 82.8 82.2-97 complet ed 017 fl .8 ed erythro 09:34 cyte mean corpusc ular v Absolut = 0.2 0.1-1.0 complet e 017 K/mm3 ed [place] 09:34 e count [place] % = 3.6 % 1.7-9.3 complet 017 ed 09:34 Automat = 10.2 7.4-10. complet ed 017 fl 4 ed blood 09:34 platele t mean volume nikia Blood = 128 142-424 complet platele 017 K/mm3 ed t count 09:34 Red = 4.14 4.2-5.4 complet blood 017 M/mm3 ed cell 09:34 count Automat = 16.6 11.5-17 complet ed 017 % .5 ed erythro 09:34 cyte distrib ution width Blood = 4.4 4.8-10. complet leukocy 017 K/MM3 8 ed jayson 09:34 count (number /volume ) Amylase ser/plas (01-09-2017 09:34) Amylase = 47 25-115 complet 017 U/L ed ser/alysia 09:34 s Comprehensive metabolic panel (01-09-2017 09:34) Serum = 1.1 1.1-1.8 complet or 017 ed plasma 09:34 albumin /globul in mass ra Serum = 3.8 3.4-5.0 complet or 017 gm/dL ed plasma 09:34 albumin measure ment (mas Serum = 144 46-116 complet or 017 U/L ed plasma 09:34 alkalin e phospha tase nikia Serum = 0.5 0.2-1.0 complet or 017 mg/dL ed plasma 09:34 total bilirub in measure m Serum = 8 7-18 complet or 017 mg/dL ed plasma 09:34 urea nitroge n measure men Serum = 8.7 8.5-10. complet or 017 mg/dL 1 ed plasma 09:34 calcium measure ment (mas Serum = 103 98-107 complet or 017 mmoL/L ed plasma 09:34 chlorid e measure ment (mo Carbon = 28 21.0-32 complet dioxide 017 mmoL/L .0 ed 09:34 measure ment Serum = 0.9 0.55-1. complet or 017 mg/dL 02 ed plasma 09:34 creatin ine measure ment ( Estimat = 102 50-200 complet ion of 017 ML/MIN ed creatin 09:34 ine renal clearan ce Estimat = 64 59- complet ed 017 ML/MIN ed glomeru 09:34 lar filtrat ion rate (GF Comment: REFERENCE RANGE: >60 ML/MIN/1.73 SQUARE METERS Comment: If this patient is -[place], then multiply the Comment: result by 1.210. Serum = 3.6 1.3-3.2 complet globuli 017 gm/dL ed n 09:34 measure ment (mass/v olume) Serum = 109 74-106 complet or 017 mg/dL ed plasma 09:34 glucose measure ment (mas Serum = 3.6 3.5-5.1 complet potassi 017 mmoL/L ed um 09:34 measure ment Serum = 139 136-145 complet sodium 017 mmoL/L ed measure 09:34 ment Serum = 10 15-37 complet or 017 U/L ed plasma 09:34 asparta te aminotr ansfera ALT = 12 12-78 complet (SGPT) 017 U/L ed ser/alysia 09:34 s Protein = 7.4 6.4-8.2 complet total 017 gm/dL ed ser/alysia 09:34 s Lipase measurement (01-09-2017 09:34) Lipase = 87 73-393 complet measure 017 U/L ed ment 09:34 Comprehensive metabolic panel (01-05-2017 08:35) Protein = 7.0 6.4-8.2 complet total 017 gm/dL ed ser/alysia 08:35 s ALT = 14 12-78 complet (SGPT) 017 U/L ed ser/alysia 08:35 s Serum = 12 15-37 complet or 017 U/L ed plasma 08:35 asparta te aminotr ansfera Serum = 141 136-145 complet sodium 017 mmoL/L ed measure 08:35 ment Serum = 3.7 3.5-5.1 complet potassi 017 mmoL/L ed um 08:35 measure ment Serum = 108 74-106 complet or 017 mg/dL ed plasma 08:35 glucose measure ment (mas Serum = 3.1 1.3-3.2 complet globuli 017 gm/dL ed n 08:35 measure ment (mass/v olume) Estimat = 57 59- complet ed 017 ML/MIN ed glomeru 08:35 lar filtrat ion rate (GF Comment: REFERENCE RANGE: >60 ML/MIN/1.73 SQUARE METERS Comment: If this patient is -[place], then multiply the Comment: result by 1.210. Serum = 1.0 0.55-1. complet or 017 mg/dL 02 ed plasma 08:35 creatin ine measure ment ( Carbon = 30 21.0-32 complet dioxide 017 mmoL/L .0 ed 08:35 measure ment Serum = 105 98-107 complet or 017 mmoL/L ed plasma 08:35 chlorid e measure ment (mo Serum = 8.7 8.5-10. complet or 017 mg/dL 1 ed plasma 08:35 calcium measure ment (mas Serum = 20 7-18 complet or 017 mg/dL ed plasma 08:35 urea nitroge n measure men Serum = 0.5 0.2-1.0 complet or 017 mg/dL ed plasma 08:35 total bilirub in measure m Serum = 134 46-116 complet or 017 U/L ed plasma 08:35 alkalin e phospha tase nikia Serum = 3.9 3.4-5.0 complet or 017 gm/dL ed plasma 08:35 albumin measure ment (mas Serum = 1.3 1.1-1.8 complet or 017 ed plasma 08:35 albumin /globul in mass ra CBC w auto diff (01-05-2017 08:35) Blood = 5.0 4.8-10. complet leukocy 017 K/MM3 8 ed jayson 08:35 count (number /volume ) Automat = 16.7 11.5-17 complet ed 017 % .5 ed erythro 08:35 cyte distrib ution width Red = 3.83 4.2-5.4 complet blood 017 M/mm3 ed cell 08:35 count Blood = 122 142-424 complet platele 017 K/mm3 ed t count 08:35 Automat = 10.3 7.4-10. complet ed 017 fl 4 ed blood 08:35 platele t mean volume nikia [place] % = 3.3 % 1.7-9.3 complet 017 ed 08:35 Absolut = 0.2 0.1-1.0 complet e 017 K/mm3 ed monocyt 08:35 e count Automat = 83.7 82.2-97 complet ed 017 fl .8 ed erythro 08:35 cyte mean corpusc ular v Automat = 29.8 31.8-35 complet ed 017 g/dl .4 ed erythro 08:35 cyte mean corpusc ular h Mean = 24.9 27-31.2 complet corpusc 017 pg ed ular 08:35 hemoglo bin (MCH) determ Lymphoc = 23.8 10-50.0 complet yte 017 % ed count, 08:35 blood, automat ed Absolut = 1.2 0.7-4.5 complet e 017 K/mm3 ed lymphoc 08:35 yte count Blood = 9.5 12.2-16 complet hemoglo 017 g/dL .2 ed bin 08:35 measure ment (mass/v olum Blood = 32.0 37.0-47 complet hematoc 017 % .0 ed rit 08:35 (volume fractio n) Granulo = 66.4 37.0-80 complet cyte 017 % .0 ed percent 08:35 age Blood = 3.3 1.8-7.8 complet granulo 017 K/mm3 ed cytes 08:35 automat ed count (numb Automat = 4.7 % 0.1-12. complet ed 017 0 ed blood 08:35 eosinop hils/10 0 leukocy t Automat = 0.2 0.0-0.4 complet ed 017 K/mm3 ed blood 08:35 eosinop hil count Baso % = 1.9 % 0.1-2.0 complet 017 ed 08:35 Automat = 0.1 0-0.2 complet ed 017 K/MM3 ed blood 08:35 basophi l count (count/ vo CBC w auto diff (12-22-2016 14:50) Blood = 6.7 4.8-10. complet leukocy 017 K/MM3 8 ed jayson 14:50 count (number /volume ) Automat = 16.3 11.5-17 complet ed 017 % .5 ed erythro 14:50 cyte distrib ution width Red = 3.74 4.2-5.4 complet blood 017 M/mm3 ed cell 14:50 count Blood = 199 142-424 complet platele 017 K/mm3 ed t count 14:50 Automat = 9.3 7.4-10. complet ed 017 fl 4 ed blood 14:50 platele t mean volume nikia [place] % = 4.7 % 1.7-9.3 complet 017 ed 14:50 Absolut = 0.3 0.1-1.0 complet e 017 K/mm3 ed monocyt 14:50 e count Automat = 83.0 82.2-97 complet ed 017 fl .8 ed erythro 14:50 cyte mean corpusc ular v Automat = 29.4 31.8-35 complet ed 017 g/dl .4 ed erythro 14:50 cyte mean corpusc ular h Mean = 24.4 27-31.2 complet corpusc 017 pg ed ular 14:50 hemoglo bin (MCH) determ Lymphoc = 21.1 10-50.0 complet yte 017 % ed count, 14:50 blood, automat ed Absolut = 1.4 0.7-4.5 complet e 017 K/mm3 ed lymphoc 14:50 yte count Blood = 9.1 12.2-16 complet hemoglo 017 g/dL .2 ed bin 14:50 measure ment (mass/v olum Blood = 31.0 37.0-47 complet hematoc 017 % .0 ed rit 14:50 (volume fractio n) Granulo = 65.0 37.0-80 complet cyte 017 % .0 ed percent 14:50 age Blood = 4.4 1.8-7.8 complet granulo 017 K/mm3 ed cytes 14:50 automat ed count (numb Automat 2 = 6.5 % 0.1-12. complet ed 017 0 ed blood 14:50 eosinop hils/10 0 leukocy t Automat 12-22-2 = 0.4 0.0-0.4 complet ed 017 K/mm3 ed blood 14:50 eosinop hil count Baso % 2 = 2.6 % 0.1-2.0 complet 017 ed 14:50 Automat 18-2 = 0.2 0-0.2 complet ed 017 K/MM3 ed blood 14:50 basophi l count (count/ vo Differential panel, method unspecified - (12-06-2016 08:26) Hypochr 2+ complet omia 017 ed [Presen 08:26 [...] panel, method unspecified - (11-22-2016 17:30) BLASTOC 11-22-2 2 % 0- High complet YTES 017 alert ed 17:30 LYMPH 11-22-2 17 % 10% - Normal complet 017 50% ed 17:30 Platele 11-22-2 NORMAL complet ts 017 ed [Presen 17:30 ce] in Blood by Light microsc opy Differential panel, method unspecified - (11-12-2016 08:30) LYMPH 11-12-2 24 % 10% - Normal complet 017 50% ed 08:30 Platele 11-12-2 NORMAL complet ts 017 ed [Presen 08:30 [...] 014 mmoL/L .0 ed Cnc 16:40 Calcium 9.4 8.5-10. complet 014 mg/dL 1 ed SerPl-m 16:40 Cnc Prot 7.1 6.4-8.2 complet SerPl-m 014 gm/dL ed Cnc 16:40 Albumin 3.5 3.4-5.0 complet 014 gm/dL ed SerPl-m 16:40 Cnc Globuli 02-17-2 3.6 1.3-3.2 complet n 014 gm/dL ed Ser-mCn 16:40 c Albumin -17-2 1.0 UNK 1.1-1.8 complet /Glob 014 ed [...] g/dL .2 ed c 16:40 Hct Fr -17-2 39.6 % 37.0-47 complet Bld 014 .0 [...] C 16:40 equal GRAVITY to 1.005 URINE 02-17-2 NEGATIV NEG complet BLOOD 014 E ed 16:40 URINE 02-17-2 7.0 UNK 5.0-8.5 complet PH 014 ed 16:40 URINE 02-17-2 NEGATIV NEG complet PROTEIN 014 E mg/dL ed - 16:40 DIPSTIC K URINE 02-17-2 0.2 NEG complet UROBILI 014 E.U./dL ed NOGEN - 16:40 DIPSTIC K URINE 02-17-2 NEGATIV NEG complet NITRATE 014 E ed [...] complet SerPl-c 014 ed Cnc 13:44 ALT 03-19-2 67 U/L 30-65 complet SerPl-c 014 ed Cnc 13:44 ALP 2 224 U/L 50-136 complet SerPl-c 014 ed Cnc 13:44 CBC with AUTO DIFF (03-19-2013 13:44) WBC # 03-19-2 2.7 4.8-10. complet Bld 014 K/MM3 8 ed Auto 13:44 RBC # 03-19-2 4.60 4.2-5.4 complet Bld 014 M/mm3 ed Auto 13:44 Hgb 03-19-2 12.2 12.2-16 complet Bld-mCn 014 g/dL .2 [...] 014 4 ed T 13:44 VOLUME Granulo 2 51.3 % 37.0-80 complet cytes 014 .0 ed Fr Bld 13:44 Auto LYMPH % 03-19-2 35.3 % 10-50.0 complet 014 ed 13:44 Monocyt 03-19-2 12.0 % 1.7-9.3 complet es Fr 014 ed Bld 13:44 Auto Eosinop 03-19-2 1.2 % 0.1-12. complet hil Fr 014 0 ed Bld 13:44 Auto Basophi 03-19-2 0.2 % 0.1-2.0 complet ls Fr 014 ed Bld 13:44 Auto Granulo 03-19-2 1.4 1.8-7.8 complet cytes # 014 K/mm3 ed Bld 13:44 Auto Lymphoc -13-2 1.0 0.7-4.5 complet ytes Fr 014 K/mm3 ed Bld 13:44 Auto Monocyt 13-2 0.3 0.1-1.0 complet es # 014 K/mm3 [...] ed - 16:56 DIPSTIC K URINE 08-18-2 TRACE NEG complet LEUK 013 ed ESTERAS 16:56 E URINE 08-18-2 5-10 O complet WBC 013 wbc/hpf ed 16:56 URINE 08-18-2 OCC. 0-5 complet SQUAMOU 013 #/hpf ed S CELLS 16:56 URINE 08-18-2 5-10 NONE complet RENAL 013 #/HPF ed CELLS 16:56 COMPREHENSIVE METABOLIC PANEL (10-22-2012 16:36) Glucose 18-2 108 74-106 complet 013 mg/dL ed Bld-mCn 16:36 c BUN 18-2 6 mg/dL 7-18 complet Bld-mCn 013 ed c 16:36 Creat 18-2 0.7 0.6-1.0 complet SerPl-m 013 mg/dL ed Cnc 16:36 GFR 18-2 87 59- complet (ESTIMA 013 ML/MIN ed GARRETT) 16:36 Sodium 18-2 144 136-145 complet SerPl-s 013 mmoL/L ed Cnc 16:36 Potassi 18-2 3.9 3.5-5.1 complet um 013 mmoL/L ed SerPl-s 16:36 Cnc Chlorid 10-22- 107 98-107 complet e 013 mmoL/L ed SerPl-s 16:36 Cnc CO2 18-2 32 21.0-32 complet SerPl-s 013 mmoL/L .0 ed Cnc 16:36 Calcium 18-2 8.7 8.5-10. complet 013 mg/dL 1 ed SerPl-m 16:36 Cnc Prot 18-2 6.8 6.4-8.2 complet SerPl-m 013 gm/dL ed Cnc 16:36 Albumin 18-2 3.3 3.4-5.0 complet 013 gm/dL ed SerPl-m 16:36 Cnc Globuli 18-2 3.5 1.3-3.2 complet n 013 gm/dL ed Ser-mCn 16:36 c Albumin 18-2 0.9 UNK 1.1-1.8 complet /Glob 013 ed SerPl-m 16:36 Rto Bilirub 18-2 0.6 0.2-1.0 complet 013 mg/dL ed SerPl-m 16:36 Cnc AST 18-2 8 U/L 15-37 complet SerPl-c 013 ed Cnc 16:36 ALT 18-2 34 U/L 30-65 complet SerPl-c 013 ed Cnc 16:36 ALP 18-2 181 U/L 50-136 complet SerPl-c 013 ed [...] 013 K/mm3 ed Bld 16:36 Auto Lymphoc 18-2 2.2 0.7-4.5 complet ytes Fr 013 K/mm3 ed Bld 16:36 Auto Monocyt 18-2 0.3 0.1-1.0 complet es # 013 K/mm3 ed Bld 16:36 Auto Eosinop 18-2 0.2 0.0-0.4 complet hil # 013 K/mm3 ed Bld 16:36 Auto Basophi 18-2 0.0 0-0.2 complet ls # 013 K/MM3 ed Bld 16:36 Auto Encounters Encounter Start End Date Code Location Performer Type Date Emergency JAYNE Luna MD (ER) 4 17:14 4 18:32 [facility] Emergency JAYNE Danielson (ER) 4 13:22 4 18:15 [facility] Emergency JAYNE TOUSSAINT (ER) 3 17:06 3 17:54 [facility] [place] Emergency JAYNE Lizarraga MD (ER) 3 17:27 3 21:15 [facility] [place]
--- OUTSIDE RECORDS SUMMARY | 2017-01-09 11:10 | External Medical Summary Rpt | CCD ---
Author Author , [facility] Organization [facility] Address Unknown Phone Care Team Providers Care Child Specialist Name Role Phone [facility], Unavailable Unavailable [facility] Nubia Luna MD, Unavailable Unavailable Nubia Lizarraga MD, Unavailable Unavailable Sierra TOUSSAINT MD, Unavailable Unavailable AMADO Danielson Unavailable Unavailable FERNANDA CALDERON, Sam Danielson III, MD Purpose Continuity of Care Document - 05-16-2009 through 2016 Problems Code Diagnosis DOS Provider Status 276.51 276.51 04-23-2013 [place] DEHYDRATION [facility] 305.1 305.1 04-23-2013 [place] TOBACCO USE [facility] DISORDER [facility] 401.9 401.9 04-23-2013 [place] HYPERTENSIO [facility] N NOS Hospital 724.2 724.2 04-23-2013 [place] LUMBAGO [facility] 780.39 780.39 04-23-2013 [place] OTHER [facility] CONVULSIONS [facility] V14.8 V14.8 04-23-2013 [place] HX-DRUG [facility] ALLERGY [facility] Hospital 787.01 787.01 03-19-2013 [place] NAUSEA WITH [facility] VOMITING [facility] 787.91 787.91 03-19-2013 [place] DIARRHEA [facility] 412 412 OLD 10-22-2012 [place] MYOCARDIAL [facility] INFARCT [facility] 413.9 413.9 10-22-2012 [place] ANGINA [facility] PECTORIS [facility] NEC/NOS 564.1 564.1 10-22-2012 [place] IRRITABLE [facility] BOWEL [facility] SYNDROME 782.0 782.0 SKIN 10-22-2012 [place] SENSATION [facility] DISTURB [facility] 789.03 789.03 10-22-2012 [place] ABDOMINAL [facility] PAIN, RIGHT Hospital LOWER QUADRANT [id number] CHR 10-08-2012 [place] AIRWAY [facility] OBSTREast [facility] 847.0 847.0 10-08-2012 [place] SPRAIN [facility] 847.1 847.1 10-08-2012 [facility] THORACIC [facility] REGION 847.2 847.2 10-08-2012 [facility] LUMBAR [facility] REGION 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 I21.3 ST ELEVATION (STEMI) MYOCARDIAL [facility] SITE I25.10 ATHSCL HEART DISEASE OF [place] CORONARY ARTERY W/O ANG PCTRS 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.0 PAROXYSMAL [...] ve BL ET TA KE HO ME WV 37 10 10 0 60 30 CL [...] 1- 2- 00 IC 76 ER ve WV 07 20 20 IL 20 11 11 [...] -0 -1 .0 IN 17 OP ti WV 30 8- 2- 00 IC 72 ER [...] AR HN MA G CY LL C WV 37 09 09 0 60 30 CL [...] 1- 2- 00 IC 76 ER ve WV 07 20 20 IL 20 11 11 [...] -0 -1 .0 IN 17 OP ti WV 30 8- 2- 00 IC 72 ER [...] 1- 1- 00 IC 76 ER ve WV 07 20 20 IL 20 11 11 [...] -0 -1 .0 IN 17 OP ti WV 30 8- 0- 00 IC 72 ER [...] E LL 25 C MG TA B WV 37 02 08 5 60 30 CL [...] 62 20 20 71 11 11 PH OR HC 1 AR CH L MA AE [...] -0 -0 .0 IN 17 OP ti WV 30 8- 8- 00 IC 72 ER [...] E LL 25 C MG TA B WV 37 02 07 5 60 30 CL [...] 2- 8- 00 IC 13 ER ve WV 07 20 20 IL 20 11 11 [...] CY MG LL TA C BL ET WV 68 06 06 0 12 2 CL [...] E LL 25 C MG TA B WV 37 02 06 5 60 30 CL [...] 2- 2- 00 IC 13 ER ve WV 51 20 20 IL 20 11 11 [...] -0 -0 .0 IN 84 OP ti WV 30 9- 2- 00 IC 35 ER [...] 2- 8- 00 IC 13 ER ve WV 51 20 20 IL 20 11 11 [...] AR HN MA G CY LL C WV 37 02 04 5 60 30 CL [...] -0 -2 .0 IN 84 OP ti WV 30 9- 8- 00 IC 35 ER [...] 2- 7- 00 IC 13 ER ve WV 51 20 20 IL 20 11 11 [...] -0 -1 .0 IN 84 OP ti WV 30 9- 7- 00 IC 35 ER [...] CY MG LL TA C BL ET WV 37 02 02 5 60 30 CL [...] 2- 2- 00 IC 13 ER ve WV 07 20 20 IL 20 11 11 [...] -0 -0 .0 IN 84 OP ti WV 30 9- 2- 00 IC 35 ER [...] -0 -0 .0 IN 84 OP ti WV 30 9- 5- 00 IC 35 ER [...] 2- 5- 00 IC 60 ER ve WV 07 20 20 IL 20 10 11 [...] 2- 6- 00 IC 60 ER ve WV 07 20 20 IL 20 10 10 [...] -0 -0 .0 IN 26 OP ti WV 30 3- 6- 00 IC 58 ER [...] 42 20 20 01 10 10 PH UDARTE 5 AR HN MA G CY LL [...] -0 -0 .0 IN 26 OP ti WV 30 3- 5- 00 IC 58 ER [...] 2- 5- 00 IC 60 ER ve WV 51 20 20 IL 20 10 10 [...] 2- 4- 00 IC 60 ER ve WV 07 20 20 IL 20 10 10 [...] -0 -0 .0 IN 26 OP ti WV 30 3- 4- 00 IC 58 ER [...] -0 -0 .0 IN 26 OP ti WV 30 3- 3- 00 IC 58 ER [...] 2- 2- 00 IC 60 ER ve WV 07 20 20 IL 20 10 10 [...] -3 -0 .0 IN 54 OP ti WV 30 0- 2- 00 IC 96 ER [...] 2- 2- 00 IC 60 ER ve WV 07 20 20 IL 20 10 10 [...] -3 -0 .0 IN 54 OP ti WV 30 0- 1- 00 IC 96 ER [...] 1- 1- 00 IC 35 ER ve WV 75 20 20 IL 76 10 10 [...] 1- 1- 00 IC 35 ER ve WV 75 20 20 IL 76 10 10 [...] -3 -0 .0 IN 54 OP ti WV 30 0- 1- 00 IC 96 ER [...] -3 -3 .0 IN 54 OP ti WV 30 0- 0- 00 IC 96 ER [...] ti NO 82 IC 35 ER ve WV 07 20 20 IL 20 10 10 [...] MA HE CY NR Y LL C WV 68 03 03 0 20 5 CL [...] 1- 2- 00 IC 35 ER ve WV 07 20 20 IL 20 10 10 [...] -0 -1 .0 IN 22 OP ti WV 30 7- 2- 00 IC 14 ER [...] 017 K/mm3 ed monocyt 09:34 e count Day % = 3.6 % 1.7-9.3 complet 017 [...] SQUARE METERS Comment: If this patient is -[place], then multiply the Comment: result by 1.210. [...] 14 12-78 complet (SGPT) 017 U/L ed ser/aylsia 08:35 s Serum = 12 15-37 complet [...] SQUARE METERS Comment: If this patient is -[place], then multiply the Comment: result by 1.210. [...] blood 08:35 platele t mean volume nikia Day % = 3.3 % 1.7-9.3 complet 017 [...] blood 14:50 platele t mean volume nikia Day % = 4.7 % 1.7-9.3 complet 017 [...] Luna MD (ER) 4 17:14 4 18:32 [facility] Emergency JAYNE Danielson (ER) 4 13:22 4 18:15 [facility] Emergency JAYNE TOUSSAINT (ER) 3 17:06 3 17:54 [facility] [place] Emergency JAYNE Lizarraga MD (ER) 3 17:27 3 21:15 [facility]
--- OUTSIDE RECORDS SUMMARY | 2017-01-09 11:31 | External Medical Summary Rpt | CCD ---
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 90 30 00 CL Ac AZ 86 -0 -0 .0 00 IN ti EP 20 3- 1- 00 00 IC ve AM 06 20 20 43 5 31 17 17 75 PH 0 57 AR MG MA CY TA BL ET OX 00 07 08 60 30 00 [...] 60 0- 8- 00 00 IC ve KY 21 20 20 43 N 81 17 17 47 PH HC 0 58 AR L MA 50 CY 0 MG TA BL ET FU 00 07 08 60 30 00 CL Ac RO 37 -2 -1 .0 00 IN ti SE 80 0- 8- 00 00 IC ve KY 21 20 20 43 DE 61 17 [...] 00 0- 8- 00 00 IC ve NV 51 20 20 43 IL 30 17 [...] 25 MC G IN H TR 00 07 08 45 10 00 [...] CY MG CH EW TA B GA 69 07 08 30 30 00 CL Ac BA 09 -2 -1 .0 00 IN ti PE 70 2- 8- 00 00 IC ve NT 81 20 20 42 IN 41 17 17 65 PH 2 37 AR 30 MA 0 CY MG CA PS UL E VE 00 07 08 18 25 00 [...] 60 2- 1- 00 00 IC ve KY 21 20 20 43 N 81 17 17 47 PH HC 0 58 AR L MA 50 CY 0 MG TA BL ET FU 00 06 07 60 30 00 CL Ac RO 37 -2 -2 .0 00 IN ti SE 80 2- 1- 00 00 IC ve KY 21 20 20 43 DE 61 17 17 47 PH 0 57 AR 40 MA CY MG TA BL ET OM 60 06 [...] 00 2- 1- 00 00 IC ve NV 51 20 20 42 IL 30 17 [...] AR MG MA CY TA BL ET SO 00 06 07 [...] 0 CY MG CA PS UL E BR 00 06 07 60 30 00 [...] 25 MC G IN H DI 51 05 06 90 30 00 [...] MG CA PS UL E OM 60 05 06 60 30 00 CL Ac EP 50 -2 -2 .0 00 IN ti RA 50 5- 3- 00 00 IC ve ZO 06 20 20 42 LE 50 17 17 97 PH [address] MA CY 20 MG CA PS UL E FE 57 05 06 60 30 00 [...] 00 5- 3- 00 00 IC ve NV 51 20 20 42 IL 30 17 17 98 PH 5 3 30 AR MA MG CY TA BL ET FU 69 05 06 60 30 00 CL Ac RO 31 -2 -2 .0 00 IN ti SE 50 5- 3- 00 00 IC ve KY 11 20 20 41 DE 71 17 17 79 PH 0 17 AR 40 MA CY MG TA BL ET ME 53 05 06 60 30 00 CL Ac TF 74 -2 -2 .0 00 IN ti OR 60 5- 3- 00 00 IC ve KY 21 20 20 41 N 81 17 17 79 PH HC 0 18 AR L MA 50 CY 0 MG TA BL ET PO 62 05 06 [...] IN CHO LE R SO 00 05 06 60 30 00 [...] 50 1- 6- 00 00 IC ve KY 11 20 20 41 DE 71 17 17 79 PH 0 17 AR 40 MA CY MG TA BL ET ME 53 05 05 60 30 00 CL Ac TF 74 -0 -2 .0 00 IN ti OR 60 1- 6- 00 00 IC ve [place] 21 20 20 41 N 81 17 [...] ME Q TA BL ET AT 60 05 05 30 30 00 [...] 00 1- 6- 00 00 IC ve NV 51 20 20 42 IL 30 17 17 98 PH 5 3 30 AR MA MG CY TA BL ET OX 00 05 05 [...] 0 CY MG CA PS UL E AZ 68 04 05 4. 4 00 [...] MA CY TA BL ET GA 42 04 04 30 30 00 CL Ac BA 58 -0 -2 .0 00 IN ti PE 20 3- 8- 00 00 IC ve NT 11 20 20 42 IN 51 17 17 65 PH 8 37 AR 30 MA 0 CY MG CA PS UL E OX 00 [...] ME Q TA BL ET SO 00 04 04 [...] 00 3- 8- 00 00 IC ve NV 51 20 20 40 IL 30 17 17 42 PH 5 3 68 AR MA MG CY TA BL ET ME 53 04 04 60 30 00 CL Ac TF 74 -0 -2 .0 00 IN ti OR 60 3- 8- 00 00 IC ve KY 21 20 20 41 N 81 17 17 79 PH HC 0 18 AR L MA 50 CY 0 MG TA BL ET FU 69 04 04 60 30 00 CL Ac RO 31 -0 -2 .0 00 IN ti SE 50 3- 8- 00 00 IC ve KY 11 20 20 41 DE 71 17 17 79 PH 0 17 AR 40 MA CY MG TA BL ET FE 57 03 03 60 30 00 CL Ac RR 66 -0 -3 .0 00 IN ti OU 40 6- 1- 00 00 IC ve S 07 20 20 42 TURNER 11 17 17 42 PH LF 0 66 AR AT MA E CY 32 5 MG TA BL ET OM 55 02 03 60 30 00 CL Ac EP 11 -2 -2 .0 00 IN ti RA 10 7- 4- 00 00 IC ve ZO 15 20 20 42 LE 81 17 17 06 PH [address] MA CY 20 MG CA PS UL E CL 13 02 03 30 30 00 CL Ac OP 66 -2 -2 .0 00 IN ti ID 80 7- 4- 00 00 IC ve OG 14 20 20 41 RE 10 17 17 04 PH L 5 27 AR 75 MA CY MG TA BL ET VE 00 02 03 18 30 00 CL Ac NT 17 -2 -2 .0 00 IN ti OL 30 7- 4- 00 00 IC ve IN 68 20 20 42 22 17 17 09 PH HF 0 12 AR A MA 90 CY MC G IN CHO LE R SO 00 02 03 60 30 00 CL Ac TA 09 -2 -2 .0 00 IN ti LO 31 7- 4- 00 00 IC ve L 06 20 20 41 80 10 17 17 03 PH 1 92 AR MG MA CY TA BL ET AT 60 02 03 30 30 00 CL Ac OR 50 -2 -2 .0 00 IN ti VA 52 7- 4- [address] 67 20 20 41 AT 10 17 17 04 PH IN 9 26 AR MA 80 CY MG TA BL ET GA 45 02 03 30 30 00 CL Ac BA 96 -2 -2 .0 00 IN ti PE 30 7- 4- 00 00 IC ve NT 55 20 20 41 IN 65 17 17 03 PH 0 40 AR 30 MA 0 CY MG CA PS UL E CH 37 02 03 30 30 00 CL Ac IL 20 -2 -2 .0 00 IN ti D 50 7- 4- 00 00 IC ve 46 20 20 41 PI 76 17 17 56 PH RI 8 75 AR N MA 81 CY MG CH EW TA B LI 68 02 03 30 30 00 CL Ac SI 18 -2 -2 .0 00 IN ti NO 00 7- 4- 00 00 IC ve NV 51 20 20 40 IL 30 17 17 42 PH 5 3 68 AR MA MG CY TA BL ET FU 69 02 03 60 30 00 CL Ac RO 31 -2 -2 .0 00 IN ti SE 50 7- 4- 00 00 IC ve KY 11 20 20 41 DE 71 17 17 79 PH 0 17 AR 40 MA CY MG TA BL ET ME 53 02 03 60 30 00 CL Ac TF 74 -2 -2 .0 00 IN ti OR 60 7- 4- 00 00 IC ve KY 21 20 20 41 N 81 17 17 79 PH HC 0 18 AR L MA 50 CY 0 MG TA BL ET SY 00 02 03 10 30 00 CL Ac MB 18 -2 -2 .1 00 IN ti IC 60 7- 4- 99 00 IC ve OR 37 20 20 41 T 22 17 17 79 PH 80 0 19 AR -4 MA .5 CY MC G IN CHO LE R PO 62 02 03 30 30 00 CL Ac TA 03 -2 -2 .0 00 IN ti SS 70 7- 4- 00 00 IC ve IU 99 20 20 41 M 90 17 17 79 PH CL 5 20 AR MA ER CY 20 ME Q TA BL ET OX 00 02 03 60 30 00 CL Ac YB 83 -2 -2 .0 00 IN ti UT 20 7- 4- 00 00 IC ve YN 03 20 20 41 IN 81 17 17 79 PH 5 0 11 AR MA MG CY TA BL ET DI 51 02 [...] 81 CY MG CH EW TA B SO 00 01 02 60 30 00 [...] 00 0- 4- 00 00 IC ve NV 51 20 20 40 IL 30 17 [...] MA CY TA BL ET OX 00 01 02 60 30 00 CL Ac YB 83 -3 -2 .0 00 IN ti UT 20 0- 4- 00 00 IC ve YN 03 20 20 41 IN 81 17 17 79 PH 5 0 11 AR MA MG CY TA BL ET PO 00 01 02 30 30 00 [...] 60 0- 4- 00 00 IC ve KY 21 20 20 41 N 81 17 17 79 PH HC 0 18 AR L MA 50 CY 0 MG TA BL ET FU 69 01 02 60 30 00 CL Ac RO 31 -3 -2 .0 00 IN ti SE 50 0- 4- 00 00 IC ve KY 11 20 20 41 DE 71 17 17 79 PH 0 17 AR 40 MA CY MG TA BL ET OM 60 01 02 60 30 00 CL Ac EP 50 -3 -2 .0 00 IN ti RA 50 0- 4- 00 00 IC ve ZO 06 20 20 42 LE 50 17 17 06 PH [address] MA CY 20 MG CA PS UL E TR 00 02 02 45 7 00 CL Ac IA 60 -0 -2 .0 00 IN ti MC 37 1- 4- 00 00 IC ve IN 86 20 20 42 OL 17 17 17 09 PH ON 4 07 AR E MA 0. CY 02 5% CR EA M AT 60 01 02 30 30 00 [...] 50 3- 3- 00 00 IC ve KY 11 20 20 41 DE 71 17 17 79 PH 0 17 AR 40 MA CY MG TA BL ET ME 53 01 02 60 30 00 CL Ac TF 74 -0 -0 .0 00 IN ti OR 60 3- 3- 00 00 IC ve KY 21 20 20 41 N 81 17 [...] CY MC G IN CHO LE R ON 00 12 01 6. 2 00 [...] 00 4- 7- 00 00 IC ve NV 51 20 20 40 IL 30 16 [...] 81 CY MG CH EW TA B CL 13 12 01 30 30 00 [...] 50 6- 9- 00 00 IC ve KY 11 20 20 40 DE 71 16 [...] CY 20 ME Q TA BL ET OM 00 12 01 56 28 00 [...] 60 6- 9- 00 00 IC ve KY 21 20 20 40 N 81 16 [...] MA 80 CY MG TA BL ET DI 00 10 10 [...] MG CY TA LL BL C ET NV 37 10 10 0 60 30 CL [...] -0 -1 .0 IN 17 OP ti NV 30 8- 2- 00 IC 72 ER [...] 1- 2- 00 IC 76 ER ve NV 07 20 20 IL 20 11 11 [...] -0 -1 .0 IN 17 OP ti NV 30 8- 2- 00 IC 72 ER [...] 1- 2- 00 IC 76 ER ve NV 07 20 20 IL 20 11 11 [...] AR HN MA G CY LL C NV 37 09 09 0 60 30 CL [...] 1- 1- 00 IC 76 ER ve NV 07 20 20 IL 20 11 11 [...] -0 -1 .0 IN 17 OP ti NV 30 8- 0- 00 IC 72 ER ve OL 73 20 20 OL 31 11 11 PH DUARTE 0 AR HN TA MA G RT CY RA TE LL C 50 MG TA B NV 37 02 08 5 60 30 CL [...] IN 17 IN ti AD 20 8- 9 00 IC 98 EY ve OL 62 20 20 71 11 11 PH KY HC 1 AR CH L MA AE [...] IN 17 OP ti RI 20 8 IC 71 ER ve N 31 20 20 10 35 11 11 PH DUARTE -4 4 AR HN 0 MA G MG CY TA LL BL C ET ME 00 07 07 5 30 30 CL 24 CO Ac TO 09 -0 -0 .0 IN 17 OP ti NV 30 8 IC 72 ER ve OL 73 20 20 OL 31 11 11 PH DUARTE 0 AR HN TA MA G RT CY RA TE LL C 50 MG TA B DI 00 07 07 0 90 30 CL 24 CO Ac AZ 59 -0 -0 .0 IN 17 OP ti EP 15 8 IC 73 ER ve AM 61 20 20 5 91 11 11 PH DUARTE 0 AR HN MG MA G CY TA BL LL ET C PO 00 02 07 5 30 30 CL 23 CO Ac TA 78 -0 -0 .0 IN 18 OP ti SS 15 2 8 00 IC 12 ER ve IU 72 20 20 M 01 11 11 PH DUARTE CL 0 AR HN MA G ER CY 20 LL C ME Q TA BL ET LI 00 02 07 5 30 30 CL 23 CO Ac SI 37 -0 -0 .0 IN 18 OP ti NO 82 2- 8- 00 IC 13 ER ve NV 07 20 20 IL 20 11 11 PH DUARTE 1 AR HN 2. MA G 5 CY MG LL TA C BL ET 14 02 07 4 60 30 CL 23 CO Ac 55 -1 -0 .0 IN 27 OP ti 00 IC 13 ER ve 51 20 20 20 11 11 PH DUARTE 4 AR HN MA G CY LL C NV 37 02 07 5 60 30 CL [...] LL G C IN CHO LE R NV 68 06 06 0 12 2 CL [...] -0 -0 .0 IN 84 OP ti NV 30 9- 2- 00 IC 35 ER [...] 2- 2- 00 IC 13 ER ve NV 51 20 20 IL 20 11 11 [...] AR HN MA G CY LL C NV 37 02 06 5 60 30 CL [...] 2- 8- 00 IC 13 ER ve NV 51 20 20 IL 20 11 11 [...] AR HN MA G CY LL C NV 37 02 04 5 60 30 CL [...] -0 -2 .0 IN 84 OP ti NV 30 9- 8- 00 IC 35 ER [...] 2- 7- 00 IC 13 ER ve NV 51 20 20 IL 20 11 11 [...] -0 -1 .0 IN 84 OP ti NV 30 9- 7- 00 IC 35 ER [...] 84 OP ti XI 00 9- 7 00 IC 38 ER ve CA 50 [...] LL G C IN CHO LE R NV 37 02 02 5 60 30 CL [...] -0 -0 .0 IN 84 OP ti NV 30 9- 2- 00 IC 35 ER [...] 2- 2- 00 IC 13 ER ve NV 07 20 20 IL 20 11 11 [...] 2- 5- 00 IC 60 ER ve NV 07 20 20 IL 20 10 11 [...] -0 -0 .0 IN 84 OP ti NV 30 9- 5- 00 IC 35 ER [...] -0 -0 .0 IN 26 OP ti NV 30 3- 6- 00 IC 58 ER [...] 2- 6- 00 IC 60 ER ve NV 07 20 20 IL 20 10 10 [...] 2- 5- 00 IC 60 ER ve NV 51 20 20 IL 20 10 10 [...] -0 -0 .0 IN 26 OP ti NV 30 3- 5- 00 IC 58 ER [...] 2- 4- 00 IC 60 ER ve NV 07 20 20 IL 20 10 10 [...] -0 -0 .0 IN 26 OP ti NV 30 3- 4- 00 IC 58 ER [...] -0 -0 .0 IN 26 OP ti NV 30 3- 3- 00 IC 58 ER [...] 2- 2- 00 IC 60 ER ve NV 07 20 20 IL 20 10 10 [...] 2- 2- 00 IC 60 ER ve NV 07 20 20 IL 20 10 10 [...] -3 -0 .0 IN 54 OP ti NV 30 0- 2- 00 IC 96 ER [...] 1- 1- 00 IC 35 ER ve NV 75 20 20 IL 76 10 10 [...] -3 -0 .0 IN 54 OP ti NV 30 0- 1- 00 IC 96 ER [...] 1- 1- 00 IC 35 ER ve NV 75 20 20 IL 76 10 10 [...] -3 -0 .0 IN 54 OP ti NV 30 0- 1- 00 IC 96 ER [...] -3 -3 .0 IN 54 OP ti NV 30 0- 0- 00 IC 96 ER [...] IN 25 OP ti XI 00 2- 9 00 IC 10 ER ve CA 50 20 20 M 10 10 10 PH DUARTE 7. 1 AR HN 5 MA G MG CY TA LL BL C ET 00 01 04 5 30 30 CL 20 AD Ac 07 -1 -2 .0 IN 88 KI ti 80 5- 9 00 IC 25 NS ve 42 20 20 01 10 10 PH TI 5 AR MO MA TH CY Y D LL C PO 62 01 04 5 30 30 CL 20 CO Ac TA 03 -1 -2 .0 IN 85 OP ti SS 70 1 00 IC 33 ER ve IU 99 [...] IN 85 OP ti NO 82 1- 9 00 IC 35 ER ve NV 07 20 20 IL 20 10 10 [...] Y LL CA C PS UL E NV 68 03 03 0 20 5 CL [...] -0 -1 .0 IN 22 OP ti NV 30 7- 2- 00 IC 14 ER ve OL 73 20 20 OL 31 09 10 PH DUARTE 0 AR HN TA MA G RT CY RA TE LL C 50 MG TA B PO 62 01 03 5 30 30 CL 20 CO Ac TA 03 -1 -1 .0 IN OP ti SS 70 1- 2- 00 IC 33 ER ve IU 99 20 20 M 90 10 10 PH DUARTE CL 5 AR HN MA G ER CY 20 LL C ME Q TA BL ET 37 01 03 5 30 30 CL 20 CO Ac PI 20 -1 -1 .0 IN OP ti RI 50 1- 2- 00 [...] 1- 2- 00 IC 35 ER ve NV 07 20 20 IL 20 10 10 [...] TH CY Y D VY 66 10 02 03 30 30 CL 20 CO Ac TO 58 -0 -2 .0 IN 22 OP ti RI 20 7- 6- 00 IC 13 ER ve N 31 20 20 10 33 09 10 PH DUARTE -4 1 AR HN 0 MA G MG CY TA BL ET PO 00 01 02 01 30 30 CL 20 CO Ac TA 78 -1 -2 .0 IN 85 OP ti SS 15 1- 6- 00 IC 33 ER ve IU 72 20 20 M 01 10 10 PH DUARTE CL 0 AR HN MA G ER CY 20 ME Q TA BL ET ME 00 10 02 03 30 30 CL 20 CO Ac TO 09 -0 -2 .0 IN 22 OP ti NV 30 7- 6- 00 IC 14 ER ve OL 73 20 20 OL 31 09 10 PH DUARTE 0 AR HN TA MA G RT CY RA TE 50 MG TA B LI 00 01 02 01 30 30 CL 20 CO Ac SI 37 -1 -2 .0 IN 85 OP ti NO 82 1- 6- 00 IC 35 ER ve NV 07 20 20 IL 20 10 10 [...] MA G CY TA BL ET 37 01 02 01 [...] G IN CHO LE R TR 00 02 02 00 45 15 CL 21 CO Ac IA 16 -0 -1 .0 IN 01 OP ti MC 80 4- 1- 00 IC 53 ER ve IN 00 20 20 OL 31 10 10 PH DUARTE ON 5 AR HN E MA G 0. CY 02 5% CR EA M CI 00 02 02 00 15 30 CL 21 CO Ac TA 37 -0 -1 .0 IN 01 OP ti LO 86 4- 1- 00 IC 51 ER ve NV 23 20 20 AM 30 10 10 PH DUARTE 1 AR HN HB MA G R CY 40 MG TA BL ET LI 00 01 01 00 30 30 CL 20 CO Ac SI 37 -1 -2 .0 IN 85 OP ti NO 82 1 8 IC 35 ER ve NV 07 20 20 IL 20 10 10 PH DUARTE 1 AR HN 2. MA G 5 CY MG TA BL ET ME 68 10 01 02 60 30 CL 20 CO Ac LO 18 -2 -2 .0 IN 35 OP ti XI 00 8 8 IC 78 ER ve CA 50 20 [...] -0 -2 .0 IN 22 OP ti NV 30 7- 8- 00 IC 14 ER [...] MA G CY TA BL ET 00 01 01 00 [...] G IN CHO LE R 37 06 12 05 30 30 CL 19 CO Ac PI 20 -0 -1 .0 IN 52 OP ti RI 50 9- 7- 00 IC 61 ER ve N 42 20 20 EC 99 09 09 PH DUARTE 6 AR HN 32 MA G 5 CY MG TA BL ET ME 68 10 12 [...] 9- 7- 00 IC 58 ER ve NV 07 20 20 IL 20 09 09 PH DUARTE 1 AR HN 2. MA G 5 CY MG TA BL ET ME 00 10 12 01 30 30 CL 20 CO Ac TO 09 -0 -1 .0 IN 22 OP ti NV 30 7- 7- 00 IC 14 ER ve OL 73 20 20 OL 31 09 09 PH DUARTE 0 AR HN TA MA G RT CY RA TE 50 MG TA B PO 62 06 12 05 30 30 [...] MA G MG CY TA BL ET NV 68 12 12 00 10 3 CL [...] MP M E DS TA BL ET VE 00 06 11 [...] 9- 9- 00 IC 58 ER ve NV 07 20 20 IL 20 09 09 [...] MG CY TA BL ET 37 06 11 04 30 30 CL 19 CO Ac PI 20 -0 -1 .0 IN 52 OP ti RI 50 9- 9- 00 IC 61 ER ve N 42 20 20 EC 99 09 09 PH DUARTE 6 AR HN 32 MA G 5 CY MG TA BL ET DI 00 11 11 00 90 30 CL 20 CO Ac AZ 59 -1 -1 .0 IN 46 OP ti EP 15 2- 9- 00 IC 27 ER ve AM 61 20 20 5 91 09 09 PH DUARTE 0 AR HN MG MA G CY TA BL ET ME 00 10 11 00 30 30 CL 20 CO Ac TO 09 -0 -1 .0 IN 22 OP ti NV 30 7- 9- 00 IC 14 ER ve OL 73 20 20 OL 31 09 09 PH DUARTE 0 AR HN TA MA G RT CY RA TE 50 MG TA B PO 00 06 11 04 30 30 CL 19 CO Ac TA 78 -0 -1 .0 IN 52 OP ti SS 15 9- 9- 00 IC 60 ER ve IU 72 20 20 M 01 09 09 PH DUARTE CL 0 AR HN MA G ER CY 20 ME Q TA BL ET ME 68 10 11 [...] CY TA BL ET LI 68 06 10 03 30 30 CL 19 CO Ac SI 18 -0 -2 .0 IN 52 OP ti NO 00 9- 2- 00 IC 58 ER ve NV 51 20 20 IL 20 09 09 [...] ME Q TA BL ET 37 06 10 03 30 30 CL 19 CO Ac PI 20 -0 -2 .0 IN 52 OP ti RI 50 9- 2- 00 IC 61 ER ve N 42 20 20 EC 99 09 09 PH DUARTE 6 AR HN 32 MA G 5 CY MG TA BL ET ME 00 10 10 00 30 30 CL 20 CO Ac TO 37 -0 -2 .0 IN 20 OP ti NV 80 5- 2- 00 IC 39 ER [...] NR 0 Y MG TA BL ET VE 00 06 09 02 18 25 CL 19 CO Ac NT 17 -0 -1 .0 IN 52 OP ti OL 30 9- 0- 00 IC 59 ER ve IN 68 20 20 22 09 09 PH DUARTE HF 0 AR HN A MA G 90 CY MC G IN CHO LE R VY 66 09 09 00 30 30 [...] CY MG TA BL ET DI 00 07 09 01 90 30 CL 19 CO Ac AZ 59 -1 -1 .0 IN 71 OP ti EP 15 4- 0- 00 IC 90 ER ve AM 61 20 20 5 91 09 09 PH DUARTE 0 AR HN MG MA G CY TA BL ET ME 00 09 09 00 30 30 CL 19 CO Ac TO 37 -0 -1 .0 IN 99 OP ti NV 80 1- 0- 00 IC 48 ER ve OL 03 20 20 OL 20 09 09 PH DUARTE 1 AR HN TA MA G RT CY RA TE 50 MG TA B LI 68 06 09 02 30 30 CL 19 CO Ac SI 18 -0 -1 .0 IN 52 OP ti NO 00 9- 0- 00 IC 58 ER ve NV 51 20 20 IL 20 09 09 PH DURATE 1 AR HN 2. MA G 5 CY MG TA BL ET PO 00 06 09 02 30 30 CL 19 CO Ac TA 78 -0 -1 .0 IN 52 OP ti SS 15 9- 0- 00 IC 60 ER ve IU 72 20 20 M 00 09 09 PH DUARTE CL 1 AR HN MA G ER CY 20 ME Q TA BL ET ME 00 01 07 05 30 30 CL 18 CO Ac TO 37 -1 -3 .0 IN 59 OP ti NV 80 7- 0- 00 IC 66 ER ve OL 03 20 20 OL 20 09 09 PH DUARTE 1 AR HN TA MA G RT CY RA TE 50 MG TA B PO 00 06 07 01 30 30 [...] 9- 0- 00 IC 58 ER ve NV 51 20 20 IL 20 09 09 PH DUARTE 1 AR HN 2. MA G 5 CY MG TA BL ET DI 00 07 [...] 00 10 5 CL 19 SO Ac NV 74 -1 -3 .0 IN 73 KA [...] BA ZA 70 09 09 PH BA NV 6 AR TU IN MA ND E CY E 10 O MG TA BL ET 37 06 06 [...] 9- 8- 00 IC 58 ER ve NV 51 20 20 IL 20 09 09 PH DUARTE 1 AR HN 2. MA G 5 CY MG TA BL ET ME 00 01 06 04 30 30 CL 18 CO Ac TO 37 -1 -1 .0 IN 59 OP ti NV 80 7- 8- 00 IC 66 ER ve OL 03 20 20 OL 20 09 09 PH DUARTE 1 AR HN TA MA G RT CY RA TE 50 MG TA B PO 00 06 06 00 30 30 CL 19 CO Ac TA 78 -0 -1 .0 IN 52 OP ti SS 15 9- 8- 00 IC 60 ER ve IU 72 20 20 M 00 09 09 PH DUARTE CL 1 AR HN MA G ER CY 20 ME Q TA BL ET DI 00 05 06 01 90 30 [...] G IN CHO LE R 00 12 05 04 30 30 CL [...] NO Y -M CR 10 0 MG VY 66 01 05 03 30 30 [...] -1 -2 .0 IN 59 OP ti NV 80 7- 1- 00 IC 66 ER [...] 3- 1- 00 IC 10 ER ve NV 51 20 20 IL 20 08 09 [...] MA TH CY Y D 00 11 03 04 30 30 CL [...] MG TA BL ET VY 66 01 03 02 30 30 [...] 3- 6- 00 IC 10 ER ve NV 51 20 20 IL 20 08 09 PH DUARTE 1 AR HN 2. MA G 5 CY MG TA BL ET ME 00 01 03 02 30 30 CL 18 CO Ac TO 37 -1 -2 .0 IN 59 OP ti NV 80 7- 6- 00 IC 66 ER [...] 3- 6- 00 IC 10 ER ve NV 51 20 20 IL 20 08 09 PH DUARTE 1 AR HN 2. MA G 5 CY MG TA BL ET VY 66 01 02 01 30 30 [...] -1 -2 .0 IN 59 OP ti NV 80 7- 6- 00 IC 66 ER [...] MA G CY TA BL ET PO 51 01 02 [...] TH CY Y D VE 00 11 02 03 18 25 CL 18 CO Ac NT 17 -1 -2 .0 IN 18 OP ti OL 30 3- 6- 00 IC 07 ER ve IN 68 20 20 22 08 09 PH DUARTE HF 0 AR HN A MA G 90 CY MC G IN CHO LE R 00 11 02 03 30 30 CL [...] G IN CHO LE R 00 12 01 01 30 30 CL [...] G MG CY TA BL ET PO 51 01 01 00 52 31 [...] -1 -3 .0 IN 59 OP ti NV 80 7- 0- 00 IC 66 ER [...] MA G CY LI 68 12 01 01 30 30 CL 18 CO Ac SI 18 -2 -3 .0 IN 44 OP ti NO 00 3- 0- 00 IC 10 ER ve NV 51 20 20 IL 20 08 09 PH DUARTE 1 AR HN 2. MA G 5 CY MG TA BL ET 37 11 01 02 [...] 3- 1- 00 IC 10 ER ve NV 51 20 20 IL 20 08 09 PH DUARTE 1 AR HN 2. MA G 5 CY MG TA BL ET 37 11 01 01 30 30 CL 18 CO Ac PI 20 -1 -0 .0 IN 22 OP ti RI 50 9- 1- 00 IC 53 ER ve N 42 20 20 EC 99 08 09 PH DUARTE 6 AR HN 32 MA G 5 CY MG TA BL ET 00 11 01 01 30 30 CL 18 CO Ac 08 -1 -0 .0 IN 22 OP ti 51 9- 1- 00 IC 52 ER ve 71 20 20 80 08 09 PH DUARTE 2 AR HN MA G CY VE 00 11 01 01 18 25 CL 18 CO Ac NT 17 -1 -0 .0 IN 18 OP ti OL 30 3- 1- 00 IC 07 ER ve IN 68 20 20 22 08 09 PH DUARTE HF 0 AR HN A MA G 90 CY MC G IN CHO LE R VY 66 10 01 02 30 30 [...] E OL Y 33 50 PO WD ME 00 07 01 05 30 30 CL 17 CO Ac TO 37 -2 -0 .0 IN 47 OP ti NV 80 1- 1- 00 IC 62 ER ve OL 03 20 20 OL 20 08 09 PH DUARTE 1 AR HN TA MA G RT CY RA TE 50 MG TA B 00 12 12 00 30 30 CL 18 AD Ac 07 -0 -1 .0 IN 30 KI ti 80 2- 8- 00 IC 51 NS ve 42 20 20 01 08 08 PH TI 5 AR MO MA TH CY Y D DI 00 10 12 01 90 30 CL 18 CO Ac AZ 59 -2 -1 .0 IN 07 OP ti EP 15 9- 8- 00 IC 26 ER ve AM 61 20 20 5 91 08 08 PH DUARTE 0 AR HN MG MA G CY TA BL ET TR 00 11 12 00 20 5 CL 18 CO Ac AM 37 -1 -0 .0 IN 22 OP ti AD 84 9- 4- 00 IC 73 ER ve OL 15 20 20 10 08 08 PH DUARTE HC 5 AR HN L MA G 50 CY MG TA BL ET 00 11 12 00 30 30 CL 18 CO Ac 08 -1 -0 .0 IN 22 OP ti 51 9- 4- 00 IC 52 ER ve 71 20 20 80 08 08 PH DUARTE 2 AR HN MA G CY PO 51 10 12 01 52 31 CL 17 CHO Ac LY 99 -1 -0 7. IN 98 MM ti ET 10 5- 4- 00 IC 94 ON ve HY 45 20 20 0 D LE 75 08 08 PH KA NE 7 AR TH MA AR GL CY IN YC E OL Y 33 50 PO WD VY 66 10 12 01 30 30 CL 17 CHO Ac TO 58 -1 -0 .0 IN 98 MM ti RI 20 5- 4- 00 IC 95 ON ve N 31 20 20 D 10 33 08 08 PH KA -4 1 AR TH 0 MA AR MG CY IN E TA Y BL ET 37 11 12 00 30 [...] -2 -0 .0 IN 47 OP ti NV 80 1- 4- 00 IC 62 ER ve OL 03 20 20 OL 20 08 08 PH DUARTE 1 AR HN TA MA G RT CY RA TE 50 MG TA B LI 68 06 12 05 30 30 CL 17 CO Ac SI 18 -2 -0 .0 IN 29 OP ti NO 00 3- 4- 00 IC 67 ER ve NV 51 20 20 IL 20 08 08 PH DUARTE 1 AR HN 2. MA G 5 CY MG TA BL ET 68 11 11 00 25 30 CL 18 CO Ac 46 -0 -2 .0 IN 10 OP ti 20 3- 0- 00 IC 29 ER ve 14 20 20 64 08 08 PH DUARTE 5 AR HN MA G CY VE 00 11 11 00 18 25 CL 18 CO Ac NT 17 -1 -2 .0 IN 18 OP ti OL 30 3- 0- 00 IC 07 ER ve IN 68 20 20 22 08 08 PH DUARTE HF 0 AR HN A MA G 90 CY MC G IN CHO LE R 37 11 11 00 30 30 CL [...] 3- 0- 00 IC 04 ER ve KY 21 20 20 DE 61 08 08 [...] AR MO MA TH CY Y D OV 51 11 11 00 59 2 [...] CY 02 5% CR EA M DI 00 10 11 00 90 30 [...] MA 2. CY 5) MG /3 ML TR 00 10 10 00 20 5 [...] 3- 3- 00 IC 67 Av ve NV 51 20 20 ai IL 20 08 08 PH la 1 AR bl 2. MA e 5 CY MG TA BL ET ME 00 07 10 03 30 30 CL 17 No Ac TO 37 -2 -2 .0 IN 47 t ti NV 80 1- 3- 00 IC 62 Av [...] YC OL 33 50 PO WD 00 09 10 00 5. 5 CL 17 No Ac 04 -2 -0 00 IN 84 t ti 51 2- 9- 0 IC 63 Av ve 53 20 20 ai 02 08 08 PH la 0 AR bl MA e CY 00 09 10 00 41 9 CL [...] 5 AR bl MA e CY 00 07 [...] MG TA BL ET LI 68 06 09 03 30 30 CL 17 No Ac SI 18 -2 -2 .0 IN 29 t ti NO 00 3- 6- 00 IC 67 Av ve NV 51 20 20 ai IL 20 08 08 PH la 1 AR bl 2. MA e 5 CY MG TA BL ET 17 07 09 02 17 25 CL 17 No Ac 27 -2 -2 .0 IN 47 t ti 00 1- 6- 00 IC 63 Av ve 72 20 20 ai 10 08 08 PH la 1 AR bl MA e CY FU 00 09 09 00 60 60 CL 17 No Ac RO 37 -1 -2 .0 IN 80 t ti SE 80 3- 6- 00 IC 04 Av ve KY 21 20 20 ai DE 61 08 08 PH la 0 AR bl 40 MA e CY MG TA BL ET ME 00 07 09 02 30 30 CL 17 No Ac TO 37 -2 -2 .0 IN 47 t ti NV 80 1- 6- 00 IC 62 Av ve OL 03 20 20 ai OL 21 08 08 PH la 0 AR bl TA MA e RT CY RA TE 50 MG TA B 17 07 08 01 17 25 CL [...] 3- 8- 00 IC 67 Av ve NV 51 20 20 ai IL 20 08 08 PH la 1 AR bl 2. MA e 5 CY MG TA BL ET ME 00 07 08 01 30 30 CL 17 No Ac TO 37 -2 -2 .0 IN 47 t ti NV 80 1- 8- 00 IC 62 Av [...] e 5 CY MG TA BL ET NE 24 07 08 00 10 5 CL 17 No Ac OM 20 -2 -0 .0 IN 49 t ti YC 80 4- 1- 00 IC 51 Av ve IN 63 20 20 ai -P 56 08 08 PH la OL 2 AR bl YM MA e YX CY IN -H C EA R TURNER SP ME 00 07 08 00 30 30 CL 17 No Ac TO 37 -2 -0 .0 IN 47 t ti NV 80 1- 1- 00 IC 62 Av ve OL 03 20 20 ai OL 21 08 08 PH la 0 AR bl TA MA e RT CY RA TE 50 MG TA B LI 68 06 08 01 30 30 CL 17 No Ac SI 18 -2 -0 .0 IN 29 t ti NO 00 3- 1- 00 IC 67 Av ve NV 51 20 20 ai [place] 20 08 [...] MA e MG CY TA BL ET IP 00 08 08 04 18 30 PU 16 CO Ac RA 37 -2 -0 0. LM 35 OP ti T- 86 0- 1- 00 O 81 ER ve AL 98 20 20 0 DO 7 BU 89 07 08 SE DUARTE T 1 HN 0. PH G 5- AR 3( MA 2. CY 5) MG /3 ML 17 07 08 00 17 25 CL 17 No Ac 27 -2 -0 .0 IN 47 t ti 00 1- 1- 00 IC 63 Av ve 72 20 20 ai 10 08 08 PH la 1 AR bl MA e CY 00 01 08 05 30 30 CL 16 No Ac 07 -2 -0 .0 IN 31 t ti 80 2- 1- 00 IC 67 Av ve 41 20 20 ai 93 08 08 PH la 4 AR bl MA e CY DI 00 07 07 00 30 5 CL 17 No Ac CY 37 -1 -1 .0 IN 41 t ti CL 81 0- 7- 00 IC 38 Av ve OM 61 20 20 ai IN 00 08 08 PH la E 1 AR bl 10 MA e CY MG CA PS UL E NE 24 07 07 00 10 5 [...] MA e CY TA BL ET 17 06 07 00 17 5 CL [...] MG CY TA BL ET 00 01 07 [...] -1 -0 .0 IN 27 t ti NV 80 8- 3- 00 IC 55 Av ve OL 03 20 20 ai OL 21 08 08 PH la 0 AR bl TA MA e RT CY RA TE 50 MG TA B LI 68 06 07 00 30 30 CL 17 No Ac SI 18 -2 -0 .0 IN 29 t ti NO 00 3- 3- 00 IC 67 Av ve NV 51 20 20 ai [place] 20 08 [...] CY -T MP DS TA BL ET DI 00 05 06 00 90 30 CL 17 No Ac AZ 59 -3 -1 .0 IN 17 t ti EP 15 1- 2- 00 IC 39 Av ve AM 61 20 20 ai 5 91 08 08 PH la 0 AR bl MG MA e CY TA BL ET 52 06 06 00 6. 2 CL 17 No Ac 15 -0 -1 00 IN 20 t ti 20 5- 2- 0 IC 71 Av ve 00 20 20 ai 40 08 08 PH la 2 AR bl MA e CY DI 57 04 06 01 30 30 [...] CY TA BL ET DI 00 02 05 03 30 30 CL 16 No Ac OV 07 -0 -2 .0 IN 41 t ti AN 80 6- 2- 00 IC 97 Av ve 31 20 20 ai HC 43 08 08 PH la T 4 AR bl 80 MA e -1 CY 2. 5 MG TA BL ET 17 04 05 01 17 15 CL 16 No Ac 27 -0 -2 .0 IN 82 t ti 00 4- 2- 00 IC 47 Av ve 72 20 20 ai 10 08 08 PH la 1 AR bl MA e CY 00 03 05 01 30 30 CL 16 No Ac 08 -1 -2 .0 IN 72 t ti 51 9- 2- 00 IC 15 Av ve 71 20 20 ai 80 08 08 PH la 1 AR bl MA e CY ME 00 04 05 01 30 30 CL 16 No Ac TO 37 -0 -2 .0 IN 82 t ti NV 80 4- 2- 00 IC 48 Av ve OL 03 20 20 ai OL 21 08 08 PH la 0 AR bl TA MA e RT CY RA TE 50 MG TA B 00 01 05 03 30 30 CL [...] MA e MG CY TA BL ET 49 08 04 03 18 30 PU [...] -0 -1 .0 IN 82 t ti NV 80 4- 0- 00 IC 48 Av [...] -2 -0 .0 IN 59 t ti NV 80 5- 7- 00 IC 65 Av ve OL 03 20 20 ai OL 21 07 08 PH la 0 AR bl TA MA e RT CY RA TE 50 MG TA B 00 03 04 00 45 23 CL 16 No Ac 14 -0 -0 .0 IN 62 t ti 31 4- 7- 00 IC 05 Av ve 34 20 20 ai 80 08 08 PH la 5 AR bl MA e CY 00 01 04 01 30 30 CL 16 No Ac 07 -2 -0 .0 IN 31 t ti 80 2- 7- 00 IC 67 Av ve 41 20 20 ai 93 08 08 PH la 4 AR bl MA e CY DI 00 03 04 00 90 30 [...] CY TA BL ET VY 66 02 03 00 30 30 CL 16 No Ac TO 58 -0 -2 .0 IN 41 t ti RI 20 6- 6- 00 IC 98 Av ve N 31 20 20 ai 10 33 08 08 PH la -4 1 AR bl 0 MA e MG CY TA BL ET 17 09 03 04 17 15 CL 15 No Ac 27 -2 -2 .0 IN 59 t ti 00 5- 6- 00 IC 64 Av ve 72 20 20 ai 10 07 08 PH la 1 AR bl MA e CY DO 00 02 03 00 30 30 [...] CY 2. 5 MG TA BL ET DI 00 10 03 03 90 30 CL 15 No Ac AZ 59 -2 -2 .0 IN 79 t ti EP 15 9- 6- 00 IC 75 Av ve AM 61 20 20 ai 5 91 07 08 PH la 0 AR bl MG MA e CY TA BL ET 00 02 03 [...] -2 -2 .0 IN 59 t ti NV 80 5- 6- 00 IC 65 Av [...] la 4 AR bl MA e CY DO 00 12 03 01 30 30 CL 16 No Ac XY 59 -1 -2 .0 IN 06 t ti CY 15 1- 5- 00 IC 69 Av ve CL 44 20 20 ai IN 00 07 08 PH la E 5 AR bl HY MA e CL CY AT E 10 0 MG CA P 49 08 03 02 18 30 PU 16 No Ac 50 -2 -2 0. LM 35 t ti 20 0- 5- 00 O 81 Av ve 67 20 20 0 DO 7 ai 26 07 08 SE la 0 bl PH e AR MA CY 00 01 03 00 30 30 CL 16 No Ac 08 -0 -2 .0 IN 20 t ti 51 4- 4- 00 IC 97 Av ve 71 20 20 ai 80 08 08 PH la 1 AR bl MA e CY FE 53 07 03 05 30 30 [...] e MG CY TA BL ET 17 09 03 [...] CY TA BL ET DI 00 07 03 05 30 30 [...] -1 -2 .0 IN 14 t ti NV 80 1- 4- 00 IC 36 Av ve OL 04 20 20 ai OL 70 07 08 PH la 1 AR bl TA MA e RT CY RA TE 10 0 MG TA B 00 10 03 02 45 23 CL 15 No Ac 14 -2 -2 .0 IN 79 t ti 31 9- 4- 00 IC 86 Av ve 34 20 20 ai 80 07 08 PH la 5 AR bl MA e CY 00 07 03 05 30 30 CL 15 No Ac PI 60 -1 -2 .0 IN 14 t ti RI 30 1- 4- 00 IC 32 Av ve N 16 20 20 ai EC 92 07 08 PH la 1 AR bl 32 MA e 5 CY MG TA BL ET AZ 59 01 03 00 6. 5 CL 16 No Ac IT 76 -1 -2 00 IN 24 t ti HR 23 0- 4- 0 IC 45 Av ve OM 06 20 20 ai YC 00 08 08 PH la IN 1 AR bl MA e 25 CY 0 MG TA BL ET Procedures Procedure DOS Code Location Performer Comment PERQ 0066 [facility] [address] NAL CORONARY ANGIOPLAS TY PTCA LEFT [address] CARDIAC CATHETERI ZATION ANGIOCARD 8853 [facility] IOGRAPHY [address] [place] [address] OF LEFT HEART STRUCTURE S PROCEDURE 0040 [facility] ON [address] [place] [address] SINGLE VESSEL CORONARY 8856 [facility] ARTERIOGR [address] [place] [address] APHY USING TWO CATHETERS OTHER 1933 [facility] ENDOSCOPY 1 [facility] [place] [facility] INTESTINE ENDOSCOPI 4542 JUN [place] C 1 [facility] [place] [facility] POL[facility] MY OF LARGE INTESTINE Encounters Encounter Start End Date Code Location Performer Type Date [facility] JUN - 7 7 [facility] 7 [facility] 7 7 [facility] 7 7 [facility] 7 7 [facility] JUN - 6 6 [facility] J[facility] - 6 6 [facility] J[facility] - 6 6 [facility] J[facility] - 6 6 [facility] 6 6 [facility] J[facility] - 5 5 [facility] 5 5 [facility] 5 [facility] J[facility] - 5 5 [facility] 5 5 [facility] 5 5 [facility] - 3 3 [facility] - 3 3 [facility] - 3 3 [facility] 2 2 [facility] - 2 2 [facility] 2 2 [facility] 2 2 [facility] - 2 2 [facility] 2 [facility] 9 9 [facility] - 9 9 [facility] - 9 9 [facility] 8 8 [facility]
--- OUTSIDE RECORDS SUMMARY | 2017-01-09 11:31 | External Medical Summary Rpt | CCD ---
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 NJ 30 0- 1- 00 IC 96 ER [...] 1- 1- 00 IC 35 ER ve NJ 75 20 20 IL 76 10 10 [...] -3 -0 .0 IN 54 OP ti NJ 30 0- 1- 00 IC 96 ER [...] -3 -3 .0 IN 54 OP ti NJ 30 0- 0- 00 IC 96 ER [...] 1- 9 00 IC 35 ER ve NJ 07 20 20 IL 20 10 10 [...] Y LL CA C PS UL E NJ 68 03 03 0 20 5 CL [...] -0 -1 .0 IN 22 OP ti NJ 30 7- 2- 00 IC 14 ER [...] 1- 2- 00 IC 35 ER ve NJ 07 20 20 IL 20 10 10 [...] -0 -2 .0 IN 22 OP ti NJ 30 7- 6- 00 IC 14 ER ve OL 73 20 20 OL 31 09 10 PH DUARTE 0 AR HN TA MA G RT CY RA TE 50 MG TA B LI 00 01 02 01 30 30 CL 20 CO Ac SI 37 -1 -2 .0 IN 85 OP ti NO 82 1- 6- 00 IC 35 ER ve NJ 07 20 20 IL 20 10 10 [...] 4- 1- 00 IC 51 ER ve NJ 23 20 20 AM 30 10 10 PH DUARTE 1 AR HN HB MA G R CY 40 MG TA BL ET LI 00 01 01 00 30 30 CL 20 CO Ac SI 37 -1 -2 .0 IN 85 OP ti NO 82 1 8 IC 35 ER ve NJ 07 20 20 IL 20 10 10 [...] -0 -2 .0 IN 22 OP ti NJ 30 7- 8- 00 IC 14 ER [...] 9- 7- 00 IC 58 ER ve NJ 07 20 20 IL 20 09 09 PH DUARTE 1 AR HN 2. MA G 5 CY MG TA BL ET ME 00 10 12 01 30 30 CL 20 CO Ac TO 09 -0 -1 .0 IN 22 OP ti NJ 30 7- 7- 00 IC 14 ER [...] MA G MG CY TA BL ET NJ 68 12 12 00 10 3 CL [...] 9- 9- 00 IC 58 ER ve NJ 07 20 20 IL 20 09 09 [...] -0 -1 .0 IN 22 OP ti NJ 30 7- 9- 00 IC 14 ER [...] 9- 2- 00 IC 58 ER ve NJ 51 20 20 IL 20 09 09 [...] -0 -2 .0 IN 20 OP ti NJ 80 5- 2- 00 IC 39 ER [...] -0 -1 .0 IN 99 OP ti NJ 80 1- 0- 00 IC 48 ER ve OL 03 20 20 OL 20 09 09 PH DUARTE 1 AR HN TA MA G RT CY RA TE 50 MG TA B LI 68 06 09 02 30 30 CL 19 CO Ac SI 18 -0 -1 .0 IN 52 OP ti NO 00 9- 0- 00 IC 58 ER ve NJ 51 20 20 IL 20 09 09 [...] -1 -3 .0 IN 59 OP ti NJ 80 7- 0- 00 IC 66 ER [...] 9- 0- 00 IC 58 ER ve NJ 51 20 20 IL 20 09 09 [...] 00 10 5 CL 19 SO Ac NJ 74 -1 -3 .0 IN 73 KA [...] BA ZA 70 09 09 PH BA NJ 6 AR TU IN MA ND E [...] 9- 8- 00 IC 58 ER ve NJ 51 20 20 IL 20 09 09 PH DUARTE 1 AR HN 2. MA G 5 CY MG TA BL ET ME 00 01 06 04 30 30 CL 18 CO Ac TO 37 -1 -1 .0 IN 59 OP ti NJ 80 7- 8- 00 IC 66 ER [...] -1 -2 .0 IN 59 OP ti NJ 80 7- 1- 00 IC 66 ER [...] 3- 1- 00 IC 10 ER ve NJ 51 20 20 IL 20 08 09 [...] 3- 6- 00 IC 10 ER ve NJ 51 20 20 IL 20 08 09 PH DUARTE 1 AR HN 2. MA G 5 CY MG TA BL ET ME 00 01 03 02 30 30 CL 18 CO Ac TO 37 -1 -2 .0 IN 59 OP ti NJ 80 7- 6- 00 IC 66 ER [...] 3- 6- 00 IC 10 ER ve NJ 51 20 20 IL 20 08 09 [...] -1 -2 .0 IN 59 OP ti NJ 80 7- 6- 00 IC 66 ER [...] -1 -3 .0 IN 59 OP ti NJ 80 7- 0- 00 IC 66 ER [...] 3- 0- 00 IC 10 ER ve NJ 51 20 20 IL 20 08 09 [...] 3- 1- 00 IC 10 ER ve NJ 51 20 20 IL 20 08 09 [...] -2 -0 .0 IN 47 OP ti NJ 80 1- 1- 00 IC 62 ER [...] -2 -0 .0 IN 47 OP ti NJ 80 1- 4- 00 IC 62 ER ve OL 03 20 20 OL 20 08 08 PH DUARTE 1 AR HN TA MA G RT CY RA TE 50 MG TA B LI 68 06 12 05 30 30 CL 17 CO Ac SI 18 -2 -0 .0 IN 29 OP ti NO 00 3- 4- 00 IC 67 ER ve NJ 51 20 20 IL 20 08 08 [...] 3- 0- 00 IC 04 ER ve SC 21 20 20 DE 61 08 08 [...] 3- 3- 00 IC 67 Av ve NJ 51 20 20 ai IL 20 08 08 PH la 1 AR bl 2. MA e 5 CY MG TA BL ET ME 00 07 10 03 30 30 CL 17 No Ac TO 37 -2 -2 .0 IN 47 t ti NJ 80 1- 3- 00 IC 62 Av [...] 3- 6- 00 IC 67 Av ve NJ 51 20 20 ai IL 20 08 [...] 3- 6- 00 IC 04 Av ve SC 21 20 20 ai DE 61 08 08 PH la 0 AR bl 40 MA e CY MG TA BL ET ME 00 07 09 02 30 30 CL 17 No Ac TO 37 -2 -2 .0 IN 47 t ti NJ 80 1- 6- 00 IC 62 Av [...] 3- 8- 00 IC 67 Av ve NJ 51 20 20 ai [place] 20 08 08 PH la 1 AR bl 2. MA e 5 CY MG TA BL ET ME 00 07 08 01 30 30 CL 17 No Ac TO 37 -2 -2 .0 IN 47 t ti NJ 80 1- 8- 00 IC 62 Av [...] -2 -0 .0 IN 47 t ti NJ 80 1- 1- 00 IC 62 Av ve OL 03 20 20 ai OL 21 08 08 PH la 0 AR bl TA MA e RT CY RA TE 50 MG TA B LI 68 06 08 01 30 30 CL 17 No Ac SI 18 -2 -0 .0 IN 29 t ti NO 00 3- 1- 00 IC 67 Av ve NJ 51 20 20 ai IL 20 08 [...] -1 -0 .0 IN 27 t ti NJ 80 8- 3- 00 IC 55 Av ve OL 03 20 20 ai OL 21 08 08 PH la 0 AR bl TA MA e RT CY RA TE 50 MG TA B LI 68 06 07 00 30 30 CL 17 No Ac SI 18 -2 -0 .0 IN 29 t ti NO 00 3- 3- 00 IC 67 Av ve NJ 51 20 20 ai IL 20 08 [...] -0 -2 .0 IN 82 t ti NJ 80 4- 2- 00 IC 48 Av [...] -0 -1 .0 IN 82 t ti NJ 80 4- 0- 00 IC 48 Av [...] -2 -0 .0 IN 59 t ti NJ 80 5- 7- 00 IC 65 Av [...] -2 -2 .0 IN 59 t ti NJ 80 5- 6- 00 IC 65 Av [...] -1 -2 .0 IN 14 t ti NJ 80 1- 4- 00 IC 36 Av [...] DOS Code Location Performer Comment PERQ 0066 [facility] [address] NAL CORONARY ANGIOPLAS TY PTCA LEFT [address] CARDIAC CATHETERI ZATION ANGIOCARD 8853 [facility] IOGRAPHY [address] [place] [address] OF LEFT HEART STRUCTURE S PROCEDURE 0040 [facility] ON [address] [place] [address] SINGLE VESSEL CORONARY 8856 [facility] ARTERIOGR [address] [place] [address] APHY USING TWO CATHETERS OTHER 9503 U[facility]N [facility] ENDOSCOPY 1 [facility] INTESTINE ENDOSCOPI 4542 JUN [facility] C 1 [facility] MY OF LARGE INTESTINE Encounters Encounter Start End Date Code Location Performer Type Date [facility] - 7 7 [facility] - 6 6 [facility] - 6 6 [facility] - 6 6 [facility] - 6 6 [facility] 6 6 [facility] - 5 5 [facility] - 5 5 [facility] - 5 5 [facility] - 5 5 [facility] 5 5 [facility] - 5 5 [facility] - 5 5 [facility] 4 [facility] - 3 3 [facility] - 3 3 [facility] - 3 3 [facility] - 3 3 [facility] - 3 3 [facility] - 2 2 [facility] 2 2 [facility] 2 2 [facility] - 2 2 [facility] - 2 2 [facility] [...] - 9 9 [facility] - 9 9 [facility] [...]
--- OUTSIDE RECORDS SUMMARY | 2017-01-09 11:38 | External Medical Summary Rpt | CCD ---
Demographics Preferred Language Monegasque Marital Status Unknown Latter-Day Affiliation Unknown Race Unknown Ethnic Group Unknown Author Author , RIVER HOLMAN Address Unknown Phone Immunization No patient found.
--- OUTSIDE RECORDS SUMMARY | 2017-01-09 11:38 | External Medical Summary Rpt | CCD ---
Demographics Preferred Language Puerto Rican Marital Status Unknown Bahai Affiliation Unknown Race Unknown Ethnic Group Unknown Author Author , RIVER HOLMAN Address Unknown Phone Immunization No patient found.
--- OUTSIDE RECORDS SUMMARY | 2017-01-09 11:39 | External Medical Summary Rpt ---
Author Author R[employer] Tesfaye, [employer] Organization [employer] Address Unknown Phone Unavailable Results Amylase [Enzymatic activity/volume] in Serum or Plasma Observa Value Referen Units Interpr Notes Date tion ce etation Range Amylase 25 - 115 U/L Normal No Jan 09 [Enzymati informati 2017 9:34 c on in AM activity/ source volume] data in Serum or Plasma Comprehensive metabolic 2000 panel in Serum or Plasma Observa Value Referen Units Interpr Notes Date tion ce etation Range Albumin/G 1.1 - 1.8 No Normal No Jan 09 lobulin informati informati 2016 9:34 [Mass on in on in AM ratio] in source source Serum or data data Plasma Albumin 3.4 - 5.0 gm/dL Normal Jan 09 [Mass/vol informati 2016 9:34 ume] in on in AM Serum or source Plasma data Alkaline 46 - 116 U/L High No Jan 09 phosphata informati 2016 9:34 se on in AM [Enzymati source c data activity/ volume] in Serum or Plasma Bilirubin 0.2 - 1.0 mg/dL Normal No Jan 09 .total informati 2016 9:34 [Mass/vol on in AM ume] in source Serum or data Plasma Urea 7 - 18 mg/dL Normal No Jan 09 nitrogen informati 2016 9:34 [Mass/vol on in AM ume] in source Serum or data Plasma Calcium 8.5 - mg/dL Normal No Jan 09 [Mass/vol 10.1 informati 2017 9:34 ume] in on in AM Serum or source Plasma data Chloride 98 - 107 mmoL/L Normal No Jan 09 [Moles/vo informati 2016 9:34 lume] in on in AM Serum or source Plasma data Carbon 21.0 - mmoL/L Normal No Jan 09 dioxide, 32.0 informati 2017 9:34 total on in AM [Moles/vo source lume] in data Serum or Plasma Creatinin 0.55 - mg/dL Normal No Jan 09 e 1.02 informati 2017 9:34 [Mass/vol on in AM ume] in source Serum or data Plasma Creatinin 50 - 200 ML/MIN Normal No Jan 09 e renal informati 2016 9:34 clearance on in AM source predicted data by Cockcroft -Gault formula Estimated 59- ML/MIN No REFERENCE Jan 09 informati RANGE: 2017 9:34 glomerula on in >60 AM r source ML/MIN/1. filtratio data 73 SQUARE n rate METERSIf (GF this patient is -A merican, then multiply theresult by 1.210. Globulin 1.3 - 3.2 gm/dL High No Jan 09 [Mass/vol informati 2016 9:34 ume] in on in AM Serum source data Glucose 74 - 106 mg/dL High No Jan 09 [Mass/vol informati 2016 9:34 ume] in on in AM Serum or source Plasma data Potassium 3.5 - 5.1 mmoL/L Normal No Jan 09 informati 2016 9:34 [Moles/vo on in AM lume] in source Serum or data Plasma Sodium 136 - 145 mmoL/L Normal Jan 09 [Moles/vo informati 2016 9:34 lume] in on in AM Serum or source Plasma data Aspartate 15 - 37 U/L Low No Jan 09 informati 2016 9:34 aminotran on in AM sferase source [Enzymati data c activity/ volume] in Serum or Plasma Alanine 12 - 78 U/L Normal No Jan 09 aminotran informati 2016 9:34 sferase on in AM [Enzymati source c data activity/ volume] in Serum or Plasma Protein 6.4 - 8.2 gm/dL Normal Jan 09 [Mass/vol informati 2016 9:34 ume] in on in AM Serum or source Plasma data Lipase [Enzymatic activity/volume] in Serum or Plasma Observa Value Referen Units Interpr Notes Date tion ce etation Range Lipase 73 - 393 U/L Normal No Jan 09 [Enzymati informati 2016 9:34 c on in AM activity/ source volume] data in Serum or Plasma CBC W Auto Differential panel in Blood Observa Value Referen Units Interpr Notes Date tion ce etation Range Basophils 0 - 0.2 K/MM3 Normal No Jan 09 informati 2016 9:34 [#/volume on in AM ] in source Blood by data Automated count Basophils 0.1 - 2.0 % Normal No Nov 5 /100 informati 2017 9:34 leukocyte on in AM s in source Blood by data Automated count Eosinophi 0.0 - 0.4 K/mm3 Normal No Nov 5 ls informati 2016 9:34 [#/volume on in AM ] in source Blood by data Automated count Eosinophi 0.1 - % Normal No Jan 5 ls/100 12.0 informati 2017 9:34 leukocyte on in AM s in source Blood by data Automated count Granulocy 1.8 - 7.8 K/mm3 Normal No Nov 5 jayson informati 2016 9:34 [#/volume on in AM ] in source Blood by data Automated count Granulocy 37.0 - % Normal No Nov 5 jayson/100 80.0 informati 2017 9:34 leukocyte on in AM s in source Blood by data Automated count Hematocri 37.0 - % Low No Jan 5 t [Volume 47.0 informati 2017 9:34 on in AM Fraction] source of Blood data Hemoglobi 12.2 - g/dL Low No Jan 5 n 16.2 informati 2017 9:34 [Mass/vol on in AM ume] in source Blood data Lymphocyt 0.7 - 4.5 K/mm3 Normal No Jan 5 es informati 2017 9:34 [#/volume on in AM ] in source Unspecifi data ed specimen by Automated count Lymphocyt 10 - 50.0 % Normal No Jan 5 es informati 2016 9:34 [#/volume on in AM ] in source Unspecifi data ed specimen by Automated count Erythrocy 27 - 31.2 pg Low No Jan 5 te mean informati 2017 9:34 corpuscul on in AM ar source hemoglobi data n [Entitic mass] Erythrocy 31.8 - g/dl Low No Jan 5 te mean 35.4 informati 2017 9:34 corpuscul on in AM ar source hemoglobi data n concentra tion [Mass/vol ume] by Automated count Erythrocy 82.2 - fl Normal No Jan 5 te mean 97.8 informati 2016 9:34 corpuscul on in AM ar volume source [Entitic data volume] by Automated count Monocytes 0.1 - 1.0 K/mm3 Normal No Jan 5 informati 2017 9:34 [#/volume on in AM ] in source Blood by data Automated count Monocytes 1.7 - 9.3 % Normal No Nov 5 /100 informati 2017 9:34 leukocyte on in AM s in source Blood by data Automated count Platelet 7.4 - fl Normal No Jan 09 mean 10.4 informati 2016 9:34 volume on in AM [Entitic source volume] data in Blood by Automated count Platelets 142 - 424 K/mm3 Low No Jan 09 informati 2017 9:34 [#/volume on in AM ] in source Blood data Erythrocy 4.2 - 5.4 M/mm3 Low No Jan 09 jayson informati 2016 9:34 [#/volume on in AM ] in source Amniotic data fluid Erythrocy 11.5 - % Normal Jan 09 te 17.5 informati 2017 9:34 distribut on in AM ion width source [Entitic data volume] by Automated count Leukocyte 4.8 - K/MM3 Low No Jan 09 s 10.8 informati 2016 9:34 [#/volume on in AM ] in source Blood data Comprehensive metabolic 2000 panel in Serum or Plasma Observa Value Referen Units Interpr Notes Date tion ce etation Range Albumin/G 1.1 - 1.8 No Normal Jan 05 lobulin informati informati 2017 8:35 [Mass on in on in AM ratio] in source source Serum or data data Plasma Albumin 3.4 - 5.0 gm/dL Normal Jan 05 [Mass/vol informati 2017 8:35 ume] in on in AM Serum or source Plasma data Alkaline 46 - 116 U/L High No Jan 05 phosphata informati 2016 8:35 se on in AM [Enzymati source c data activity/ volume] in Serum or Plasma Bilirubin 0.2 - 1.0 mg/dL Normal Jan 05 .total informati 2017 8:35 [Mass/vol on in AM ume] in source Serum or data Plasma Urea 7 - 18 mg/dL High No Jan 05 nitrogen informati 2017 8:35 [Mass/vol on in AM ume] in source Serum or data Plasma Calcium 8.5 - mg/dL Normal Jan 05 [Mass/vol 10.1 informati 2017 8:35 ume] in on in AM Serum or source Plasma data Chloride 98 - 107 mmoL/L Normal Jan 05 [Moles/vo informati 2016 8:35 lume] in on in AM Serum or source Plasma data Carbon 21.0 - mmoL/L Normal No Jan 05 dioxide, 32.0 informati 2017 8:35 total on in AM [Moles/vo source lume] in data Serum or Plasma Creatinin 0.55 - mg/dL Normal No Jan 05 e 1.02 informati 2016 8:35 [Mass/vol on in AM ume] in source Serum or data Plasma Estimated 59- ML/MIN Low REFERENCE Nov RANGE: 2016 8:35 glomerula >60 AM r ML/MIN/1. filtratio 73 SQUARE n rate METERSIf (GF this patient is -A merican, then multiply theresult by 1.210. Globulin 1.3 - 3.2 gm/dL Normal No Jan 05 [Mass/vol informati 2016 8:35 ume] in on in AM Serum source data Glucose 74 - 106 mg/dL High No Jan 05 [Mass/vol informati 2016 8:35 ume] in on in AM Serum or source Plasma data Potassium 3.5 - 5.1 mmoL/L Normal No Jan 05ati 2016 8:35 [Moles/vo on in AM lume] in source Serum or data Plasma Sodium 136 - 145 mmoL/L Normal No Jan 05 [Moles/vo informati 2016 8:35 lume] in on in AM Serum or source Plasma data Aspartate 15 - 37 U/L Low No Jan 05 informati 2016 8:35 aminotran on in AM sferase source [Enzymati data c activity/ volume] in Serum or Plasma Alanine 12 - 78 U/L Normal No Jan 05 aminotran informati 2016 8:35 sferase on in AM [Enzymati source c data activity/ volume] in Serum or Plasma Protein 6.4 - 8.2 gm/dL Normal Jan 05 [Mass/vol informati 2016 8:35 ume] in on in AM Serum or source Plasma data CBC W Auto Differential panel in Blood Observa Value Referen Units Interpr Notes Date tion ce etation Range Basophils 0 - 0.2 K/MM3 Normal No Jan 05 informati 2016 8:35 [#/volume on in AM ] in source Blood by data Automated count Basophils 0.1 - 2.0 % Normal No Jan 05 /100 informati 2016 8:35 leukocyte on in AM s in source Blood by data Automated count Eosinophi 0.0 - 0.4 K/mm3 Normal No Jan 05 ls ati 2016 8:35 [#/volume on in AM ] in source Blood by data Automated count Eosinophi 0.1 - % Normal No Nov 1 ls/100 12.0 informati 2016 8:35 leukocyte on in AM s in source Blood by data Automated count Granulocy 1.8 - 7.8 K/mm3 Normal No Nov 1 jayson informati 2016 8:35 [#/volume on in AM ] in source Blood by data Automated count Granulocy 37.0 - % Normal No Nov 1 jayson/100 80.0 informati 2016 8:35 leukocyte on in AM s in source Blood by data Automated count Hematocri 37.0 - % Low No Nov 1 t [Volume 47.0 informati 2016 8:35 on in AM Fraction] source of Blood data Hemoglobi 12.2 - g/dL Low No Nov 1 n 16.2 informati 2016 8:35 [Mass/vol on in AM ume] in source Blood data Lymphocyt 0.7 - 4.5 K/mm3 Normal No Nov 1 es informati 2017 8:35 [#/volume on in AM ] in source Unspecifi data ed specimen by Automated count Lymphocyt 10 - 50.0 % Normal No Nov 1 es informati 2016 8:35 [#/volume on in AM ] in source Unspecifi data ed specimen by Automated count Erythrocy 27 - 31.2 pg Low No Nov 1 te mean informati 2017 8:35 corpuscul on in AM ar source hemoglobi data n [Entitic mass] Erythrocy 31.8 - g/dl Low No Nov 1 te mean 35.4 informati 2016 8:35 corpuscul on in AM ar source hemoglobi data n concentra tion [Mass/vol ume] by Automated count Erythrocy 82.2 - fl Normal No Nov 1 te mean 97.8 informati 2016 8:35 corpuscul on in AM ar volume source [Entitic data volume] by Automated count Monocytes 0.1 - 1.0 K/mm3 Normal No Nov 1 informati 2017 8:35 [#/volume on in AM ] in source Blood by data Automated count Monocytes 1.7 - 9.3 % Normal No Nov 1 /100 informati 2016 8:35 leukocyte on in AM s in source Blood by data Automated count Platelet 7.4 - fl Normal No Nov 1 mean 10.4 informati 2016 8:35 volume on in AM [Entitic source volume] data in Blood by Automated count Platelets 142 - 424 K/mm3 Low No Jan 05 inform2016 8:35 [#/volume on in AM ] in source Blood data Erythrocy 4.2 - 5.4 M/mm3 Low No Jan 05 jayson informati 2016 8:35 [#/volume on in AM ] in source Amniotic data fluid Erythrocy 11.5 - % Normal No Jan 05 te 17.5 ati 2016 8:35 distribut on in AM ion width source [Entitic data volume] by Automated count Leukocyte 4.8 - K/MM3 Normal No Jan 05 s 10.8 informati 2016 8:35 [#/volume on in AM ] in source Blood data CBC W Auto Differential panel in Blood Observa Value Referen Units Interpr Notes Date tion ce etation Range Basophils 0 - 0.2 K/MM3 Normal No Dec 22 inform2016 2:50 [#/volume on in PM ] in source Blood by data Automated count Basophils 0.1 - 2.0 % High No Dec 22 / informati 2016 2:50 leukocyte on in PM s in source Blood by data Automated count Eosinophi 0.0 - 0.4 K/mm3 Normal No Dec 22 ls informati 2016 2:50 [#/volume on in PM ] in source Blood by data Automated count Eosinophi 0.1 - % Normal No Dec 22 ls/100 12.0 informati 2016 2:50 leukocyte on in PM s in source Blood by data Automated count Granulocy 1.8 - 7.8 K/mm3 Normal No Dec 22 jayson informati 2016 2:50 [#/volume on in PM ] in source Blood by data Automated count Granulocy 37.0 - % Normal No Dec 22 jayson/100 80.0 informati 2016 2:50 leukocyte on in PM s in source Blood by data Automated count Hematocri 37.0 - % Low No Dec 22 t [Volume 47.0 informati 2016 2:50 on in PM Fraction] source of Blood data Hemoglobi 12.2 - g/dL Low No Dec 22 n 16.2 informati 2016 2:50 [Mass/vol on in PM ume] in source Blood data Lymphocyt 0.7 - 4.5 K/mm3 Normal No Dec 22 es informati 2016 2:50 [#/volume on in PM ] in source Unspecifi data ed specimen by Automated count Lymphocyt 10 - 50.0 % Normal No Dec 22 es 2016 2:50 [#/volume on in PM ] in source Unspecifi data ed specimen by Automated count Erythrocy 27 - 31.2 pg Low No Dec 18 te mean 2016 2:50 corpuscul on in PM ar source hemoglobi data n [Entitic mass] Erythrocy 31.8 - g/dl Low No Dec 18 te mean 35.4 inform2016 2:50 corpuscul on in PM ar source hemoglobi data n concentra tion [Mass/vol ume] by Automated count Erythrocy 82.2 - fl Normal No Dec 18 te mean 97.8 2016 2:50 corpuscul on in PM ar volume source [Entitic data volume] by Automated count Monocytes 0.1 - 1.0 K/mm3 Normal No Dec 18 2016 2:50 [#/volume on in PM ] in source Blood by data Automated count Monocytes 1.7 - 9.3 % Normal No Dec 222016 2:50 leukocyte on in PM s in source Blood by data Automated count Platelet 7.4 - fl Normal No Dec 18 mean 10.4 2016 2:50 volume on in PM [Entitic source volume] data in Blood by Automated count Platelets 142 - 424 K/mm3 No No Dec 18 informati informati 2016 2:50 [#/volume on in on in PM ] in source source Blood data data Erythrocy 4.2 - 5.4 M/mm3 Low No Dec 18 jayson inform2016 2:50 [#/volume on in PM ] in source Amniotic data fluid Erythrocy 11.5 - % Normal No Dec 18 te 17.5 informati 2016 2:50 distribut on in PM ion width source [Entitic data volume] by Automated count Leukocyte 4.8 - K/MM3 Normal No Dec 18 s 10.8 ati 2016 2:50 [#/volume on in PM ] in source Blood data CBC W Auto Differential panel in Blood Observa Value Referen Units Interpr Notes Date tion ce etation Range Basophils 0 - 0.2 K/MM3 High No Dec 2 2016 8:26 [#/volume on in AM ] in source Blood by data Automated count Basophils 0.1 - 2.0 % High No Dec 06 informati 2016 8:26 leukocyte on in AM s in source Blood by data Automated count Eosinophi 0.0 - 0.4 K/mm3 High No Oct 2 ls informati 2016 8:26 [#/volume on in AM ] in source Blood by data Automated count Eosinophi 0.1 - % Normal No Oct 2 ls/100 12.0 informati 2016 8:26 leukocyte on in AM s in source Blood by data Automated count Granulocy 1.8 - 7.8 K/mm3 High No Oct 2 jayson informati 2016 8:26 [#/volume on in AM ] in source Blood by data Automated count Granulocy 37.0 - % High No Oct 2 jayson/100 80.0 informati 2016 8:26 leukocyte on in AM s in source Blood by data Automated count Hematocri 37.0 - % Low No Oct 2 t [Volume 47.0 informati 2016 8:26 on in AM Fraction] source of Blood data Hemoglobi 12.2 - g/dL Low No Oct 2 n 16.2 informati 2016 8:26 [Mass/vol on in AM ume] in source Blood data Lymphocyt 0.7 - 4.5 K/mm3 High No Oct 2 es informati 2016 8:26 [#/volume on in AM ] in source Unspecifi data ed specimen by Automated count Lymphocyt 10 - 50.0 % Normal No Oct 2 es informati 2016 8:26 [#/volume on in AM ] in source Unspecifi data ed specimen by Automated count Erythrocy 27 - 31.2 pg Low No Oct 2 te mean informati 2016 8:26 corpuscul on in AM ar source hemoglobi data n [Entitic mass] Erythrocy 31.8 - g/dl Low No Oct 2 te mean 35.4 informati 2016 8:26 corpuscul on in AM ar source hemoglobi data n concentra tion [Mass/vol ume] by Automated count Erythrocy 82.2 - fl Low No Oct 2 te mean 97.8 informati 2016 8:26 corpuscul on in AM ar volume source [Entitic data volume] by Automated count Monocytes 0.1 - 1.0 K/mm3 High No Oct 2 informati 2016 8:26 [#/volume on in AM ] in source Blood by data Automated count Monocytes 1.7 - 9.3 % Normal No Oct 2 /100 informati 2016 8:26 leukocyte on in AM s in source Blood by data Automated count Platelet 7.4 - fl Normal No Oct 2 mean 10.4 informati 2017 8:26 volume on in AM [Entitic source [...] Erythrocy 11.5 - % Normal No Dec 06 te 17.5 informati 2016 8:26 distribut on in AM ion width source [Entitic data volume] by Automated count Leukocyte 4.8 - K/MM3 High Oct 2 s 10.8 alert NOTIFICAT 2017 8:26 [#/volume ION AM ] in RESULT Blood Frannie [address] Differential panel, method unspecified - Observa Value Referen Units Interpr Notes Date tion ce etation Range Neutrophi 0 - 8 % Normal No Dec 06 ls.band informati 2017 8:26 form/100 on in AM leukocyte source s in data Blood by Automated count Basophils 0 - 1 % High No Dec 06 informati 2016 8:26 leukocyte on in AM s in source Blood by data Automated count Eosinophi 0 - 3 % Normal No Dec 06 ls/100 informati 2016 8:26 leukocyte on in AM s in source Blood by data Manual count Hypochr 2+ No No No No Dec 06 omia informa informa informa informa 2016 [Presen tion in tion in tion in tion in 8:26 AM ce] in source source source source Blood data data data data LYMPH 23 10 - 50 % Normal No Dec 06 inform2016 tion in 8:26 AM source data Metamyelo 0 - 1 % High No Dec 06 cytes/100 informati 2016 8:26 on in AM leukocyte source s in data Blood by Manual count Monocytes 2 - 9 % Normal No Dec 06 informati 2016 8:26 leukocyte on in AM s in source Blood by data Automated count Platele NORMAL No No No No Dec 06 ts informa informa informa informa 2016 [Presen tion in tion in tion in tion in 8:26 AM ce] in source source source source Blood data data data data by Light microsc opy Neutrophi 42 - 76 % Normal No Dec 06 ls informati 2016 8:26 [#/volume on in AM ] in source Blood by data Automated count Cells No #CELLS No No Oct 2 Counted informati informati informati 2017 8:26 Total [#] on in on in on in AM in Blood source source source data data data Comprehensive metabolic 2000 panel in Serum or Plasma Observa Value Referen Units Interpr Notes Date tion ce etation Range Albumin/G 1.1 - 1.8 No Normal No Oct 2 lobulin informati informati 2016 8:26 [Mass on in on in AM [...] No Sep 18 t [Volume 47.0 informati 2016 5:30 on in PM Fraction] source of Blood data Hemoglobi 12.2 - g/dL Low No Sep 18 n 16.2 informati 2017 5:30 [Mass/vol on in PM ume] in source Blood data Lymphocyt 0.7 - 4.5 K/mm3 High No Sep 18 es informati 2016 5:30 [#/volume on in PM ] in source Unspecifi data ed specimen by Automated count Lymphocyt 10 - 50.0 % Normal No Sep 18 es informati 2016 5:30 [#/volume on in PM [...] No Sep 18 te mean 97.8 informati 2016 5:30 corpuscul on in PM ar volume source [Entitic data volume] by Automated count Monocytes 0.1 - 1.0 K/mm3 High No Sep 18 informati 2016 5:30 [#/volume on in PM ] in source Blood by data Automated count Monocytes 1.7 - 9.3 % Normal No Sep 18 /100 informati 2017 5:30 leukocyte on in PM s in source Blood by data Automated count Platelet 7.4 - fl Normal No Sep 18 mean 10.4 informati 2016 5:30 volume on in PM [Entitic source volume] data in Blood by Automated count Platelets 142 - 424 K/mm3 Normal No Sep 18 informati 2016 5:30 [#/volume on in PM ] in source Blood data Erythrocy 4.2 - 5.4 M/mm3 Low No Sep 18 jayson informati 2016 5:30 [...] 76 % Normal No Sep 18 ls informati 2016 5:30 [#/volume on in PM ] in source Blood by data Automated count Cells No #CELLS No No Sep 18 Counted informati informati informati 2017 5:30 Total [#] on in on in on in PM in Blood source source source data data data CBC W Auto Differential panel in Blood Observa Value Referen Units Interpr Notes Date tion ce etation Range Basophils 0 - 0.2 K/MM3 High No Sep 8 informati 2017 8:30 [#/volume on in AM ] in source Blood by data Automated count Basophils 0.1 - 2.0 % High No Sep 8 /100 informati 2017 8:30 leukocyte on in AM s in source Blood by data Automated count Eosinophi 0.0 - 0.4 K/mm3 High No Sep 8 ls informati 2016 8:30 [#/volume on in AM ] in source Blood by data Automated count Eosinophi 0.1 - % Normal No Sep 8 ls/100 12.0 informati 2017 8:30 leukocyte on in AM s in source Blood by data Automated count Granulocy 1.8 - 7.8 K/mm3 High No Sep 8 jayson informati 2017 8:30 [#/volume on in AM ] in source Blood by data Automated count Granulocy 37.0 - % High No Sep 8 jayson/100 80.0 informati 2017 8:30 leukocyte on in AM s in source Blood by data Automated count Hematocri 37.0 - % Low No Sep 8 t [Volume 47.0 informati 2017 8:30 on in AM Fraction] source of Blood data Hemoglobi 12.2 - g/dL Low No Sep 8 n 16.2 informati 2017 8:30 [Mass/vol on in AM ume] in source Blood data Lymphocyt 0.7 - 4.5 K/mm3 High No Sep 8 es informati 2017 8:30 [#/volume on in AM ] in source Unspecifi data ed specimen by Automated count Lymphocyt 10 - 50.0 % Normal No Sep 8 es informati 2016 8:30 [#/volume on in AM ] in source Unspecifi data ed specimen by Automated count Erythrocy 27 - 31.2 pg Low No Sep 8 te mean informati 2017 8:30 corpuscul on in AM ar source [...] % Normal No Sep 8 /100 informati 2017 8:30 leukocyte on in AM s in source Blood by data Automated count Platelet 7.4 - fl Normal No Sep 8 mean 10.4 informati 2016 8:30 volume on in AM [Entitic source volume] data in Blood by Automated count Platelets 142 - 424 K/mm3 Normal No Sep 8 informati 2017 8:30 [#/volume on in AM ] in source Blood data Erythrocy 4.2 - 5.4 M/mm3 Low No Sep 8 jayson informati 2017 8:30 [#/volume on in AM [...] % Normal No Sep 8 ls.band informati 2017 8:30 form/100 on in AM leukocyte source s in data Blood by Automated count Basophils 0 - 1 % High No Sep 8 /100 informati 2017 8:30 leukocyte on in AM s in source Blood by data Automated count Eosinophi 0 - 3 % Normal No Sep 8 ls/100 informati 2017 8:30 leukocyte on in AM s in source Blood by data Manual count LYMPH 24 10 - 50 % Normal No Sep 8 inform 2017 tion in 8:30 AM source data Metamyelo 0 - 1 % High No Sep 8 cytes/100 informati 2016 8:30 on in AM leukocyte source s [...] No Sep 8 Counted informati informati informati 2017 8:30 Total [#] on in on in [...] Normal No Sep 8 dioxide, 32.0 informati 2017 8:30 total on in AM [Moles/vo source lume] in data Serum or Plasma Creatinin 0.55 - mg/dL Normal No Sep 8 e 1.02 informati 2017 8:30 [Mass/vol on in AM [...] - 5.1 mmoL/L Normal No Sep 8 inform2016 8:30 [Moles/vo on in AM lume] in source Serum or data Plasma Sodium 136 - 145 mmoL/L Normal No Sep 8 [Moles/vo informati 2016 8:30 lume] in on in AM Serum [...] U/L High No Oct 21 phosphata informati 2017 se on in 10:17 AM [Enzymati source [...] Low No Oct 21 [Mass/vol 10.1 informati 2017 ume] in on in 10:17 [...] mg/dL Normal No Oct 21 e 1.02 inform2016 [Mass/vol on in 10:17 AM ume] in source Serum or data Plasma Estimated 59- ML/MIN No REFERENCE Oct 21 informati RANGE: 2017 glomerula on in >60 10:17 AM r source ML/MIN/1. filtratio data 73 SQUARE n rate METERSIf (GF this patient is -A merican, then multiply theresult by 1.210. Globulin 1.3 - 3.2 gm/dL High No Oct 21 [Mass/vol informati 2016 ume] in on in 10:17 AM Serum source data Glucose 74 - 106 mg/dL Normal No Oct 21 [Mass/vol informati 2016 ume] in on in 10:17 AM Serum or source Plasma data Potassium 3.5 - 5.1 mmoL/L Normal No Oct [id number] [Moles/vo on in 10:17 AM lume] in [...] 78 U/L Normal No Oct 21 aminotran 2016 sferase on in 10:17 AM [Enzymati [...] e refer or to Tissue faxed by copy Molecul for ar interpr genetic etaion, s method backgro und,and directo r review. @ faxed [phone] forming site:[facility] [place] [address]Dir: Shaista baer MDFor inquiri es, the physici an may contact Branch: Lab: Leukocyte phosphatase [Units/volume] in Leukocytes Observa Value Referen Units Interpr Notes Date tion ce etation Range Leukocyte 40 - 100 SCORE Low Performin Sep 29 g 2016 2:15 phosphata site:[facility] PM se orp [Units/vo [id number] lume] in 0 [facility], [place] [address]Dir: Corazon Tavera MDFor inquiries , the [...] p210 and p190-en coding transcr ipts by CMLjerald ents in chronic phase is reporte d to be the result ofalter [place] splicin g, however , the prognos ticsign ificanc e of co-expr ession has yet to be clearly defined . Laborat Comment . No No Anjen Sep 29 ory informa informdereje [place], 2016 directo tion in tion in MD, 2:15 PM r name source source PhDDire in data data ctor, provide Mole[facility] [place] [place] [id number]- [phone] E SEPERAT E REPORT FOR BACKGRO UND AND METHODO LOGY. Heterophile Ab [Presence] in Serum by Latex agglutination Observa Value Referen Units Interpr Notes Date ti ce etation Range Heterop NEGATIV NEG No No No Sep 29 hile Ab E informa informa 2016 tion in tion in tion in 11:50 [Presen source source source AM ce] in data data data Serum by Latex aggluti nation CBC W Auto Differential panel in Blood Observa Value Referen Units Interpr Notes Date tion ce etation Range Basophils 0 - 0.2 K/MM3 High No Sep 292016 [#/volume on in 11:47 AM ] in source Blood by data Automated count Basophils 0.1 - 2.0 % High No Sep 29 /2016 leukocyte on in 11:47 AM s in source Blood by data Automated count Eosinophi 0.0 - 0.4 K/mm3 High No Sep 29 ls 2016 [#/volume on in 11:47 AM ] in source Blood by data Automated count Eosinophi 0.1 - % Normal No Sep 29 ls/100 12.0 2016 leukocyte on in 11:47 AM s in source Blood by data Automated count Granulocy 1.8 - 7.8 K/mm3 High No Sep 29 jayson 2016 [#/volume on in 11:47 AM ] in source Blood by data Automated count Granulocy 37.0 - % Normal No Sep 29 jayson/100 80.0 2016 leukocyte on in 11:47 AM s in source Blood by data Automated count Hematocri 37.0 - % Low No Sep 29 t [Volume 47.0 informati 2017 on in 11:47 AM Fraction] source of Blood data Hemoglobi 12.2 - g/dL Low No Sep 29 n 16.2 informati 2016 [Mass/vol on in 11:47 AM ume] in source Blood data Lymphocyt 0.7 - 4.5 K/mm3 Normal No Sep 29 es inform2016 [#/volume on in 11:47 AM ] in source Unspecifi data ed specimen by Automated count Lymphocyt 10 - 50.0 % Normal No Sep 29 es inform2016 [#/volume on in 11:47 AM ] in source Unspecifi data ed specimen by Automated count Erythrocy 27 - 31.2 pg Low No Sep 29 te mean 2016 corpuscul on in 11:47 AM ar source hemoglobi data n [Entitic mass] Erythrocy 31.8 - g/dl Low Sep 29 te mean 35.4 inform2016 corpuscul on in 11:47 AM ar source hemoglobi data n concentra tion [Mass/vol ume] by Automated count Erythrocy 82.2 - fl Normal No Sep 29 te mean 97.8 2016 corpuscul on in 11:47 AM ar volume source [Entitic data volume] by Automated count Monocytes 0.1 - 1.0 K/mm3 High No Sep 29 inform2016 [#/volume on in 11:47 AM ] in source Blood by data Automated count Monocytes 1.7 - 9.3 % Normal No Sep 29 /100 2016 leukocyte on in 11:47 AM s in source Blood by data Automated count Platelet 7.4 - fl Normal Sep 29 mean 10.4 2016 volume on in 11:47 AM [Entitic source volume] data in Blood by Automated count Platelets 142 - 424 K/mm3 Normal No Sep 29 inform2016 [#/volume on in 11:47 AM ] in source Blood data Erythrocy 4.2 - 5.4 M/mm3 Low No Sep 29 jayson informati 2016 [#/volume on in 11:47 AM ] in source Amniotic data fluid Erythrocy 11.5 - % Normal No Sep 29 te 17.5 inform2016 distribut on in 11:47 AM ion width source [Entitic data volume] by Automated count Leukocyte 4.8 - K/MM3 High No Sep 29 s 10.8 alert inform2016 [#/volume on in 11:47 AM ] in source Blood data Differential panel, method unspecified - Observa Value Referen Units Interpr Notes Date tion ce etation Range Lymphocyt 0 - 5 % Normal No Sep 29 es informati 2016 Variant/1 on in 11:47 AM 00 source leukocyte data s in Blood by Manual count Neutrophi 0 - 8 % Normal No Sep 29 ls.band informati 2016 form/100 on in 11:47 AM leukocyte source s in data Blood by Automated count Basophils 0 - 1 % High No Sep 292016 leukocyte on in 11:47 AM s in source Blood by data Automated count Eosinophi 0 - 3 % Normal No Sep 29 ls/100 inform2016 leukocyte on in 11:47 AM s in source Blood by data Manual count Hypochr 1+ No No No No Sep 29 omia informa [...] 76 % Normal No Sep 29 ls 2016 [#/volume on in 11:47 AM ] in source Blood by data Automated count Cells No #CELLS No No Sep 29 Counted informati ati ati 2016 Total [#] on in on in [...] 116 U/L Normal No Sep 29 phosphata ati 2016 se on in 11:47 AM [Enzymati [...] mmoL/L Normal No Sep 29 [Moles/vo informati 2017 lume] in on in 11:47 AM Serum or source Plasma data Aspartate 15 - 37 U/L Low No Sep 29 inform2016 aminotran on in 11:47 AM sferase source [Enzymati data c activity/ volume] in Serum or Plasma Alanine 12 - 78 U/L Normal No Sep 29 aminotran informati 2017 sferase on in 11:47 AM [Enzymati source c data activity/ volume] in Serum or Plasma Protein 6.4 - 8.2 gm/dL Normal No Sep 29 [Mass/vol informati 2017 ume] in on in 11:47 AM Serum or source Plasma data Cobalamin (Vitamin B12) [Mass/volume] in Serum Observa Value Referen Units Interpr Notes Date tion ce etation Range Cobalamin 211 - 946 pg/mL High Performed Sep 22 (Vitamin at: [facility] 2016 B12) - [facility] 11:12 AM [Mass/vol ume] in [place] [address] Serum 0 [place], [place] [id number] Steel Plate Caulker: Cameron Galindo PhD, Phone: [phone] Iron and TIBC Observa Value Referen Units Interpr Notes Date tion ce etation Range Iron 250 - 450 ug/dL No No Sep 22 binding informati informati 2016 capacity on in on in 11:12 AM [Mass/vol source source ume] in data data Serum or Plasma Iron 131 - 425 ug/dL No No Sep 22 binding informati informati 2016 capacity. on in on in 11:12 AM unsaturat source source ed data data [Mass/vol ume] in Serum or Plasma Iron 27 - 159 ug/dL Low No Sep 22 [Mass/vol informati 2017 ume] in on in 11:12 AM Serum or source Plasma data Iron 15 - 55 % Low Performed Sep 22 saturatio at: [facility] 2016 n [Mass] - [facility] 11:12 AM in Serum or Plasma [place] [address] [address] [place], [place] [id number] Steel Plate Caulker: Cameron Galindo PhD, Phone: [phone] Folate [Mass/volume] in Serum or Plasma Observa Value Referen Units Interpr Notes Date tion ce etation Range Folate >3.0 ng/mL No A serum Sep 22 [Mass/vol informati folate 2017 ume] in on in concentra 11:12 AM Serum or source tion of Plasma data less than 3.1 ng/mL isconside red to represent clinical deficienc y.Perform ed at: CB - [facility] [id number] [place], [place] [id number] Steel Plate Caulker: Cameron Galindo PhD, Phone: [phone] Triiodothyronine (T3) resin uptake in Serum or Plasma Observa Value Referen Units Interpr Notes Date tion ce etation Range Triiodoth 31 - 39 % Low No Sep 22 yronine inform2016 (T3) on in 11:12 AM resin source [...] Observa Value Referen Units Interpr Notes Date ti ce etation Range Erythrocy 0 - 30 mm/hr Normal No Sep 14 te informati 2016 3:57 sedimenta on in PM tion rate source by data Westergre n method
--- OUTSIDE RECORDS SUMMARY | 2017-01-09 11:39 | External Medical Summary Rpt ---
[...] ION AM ] in RESULT Blood Frannie laen Differential panel, method unspecified - Observa Value [...] @ faxed [phone] forming site:[facility] [id number] [place] [address]Dir: Shaista baer MDFor inquiri es, the physici an may contact Branch: Lab: [phone] Leukocyte phosphatase [Units/volume] in Leukocytes Observa Value Referen Units Interpr Notes Date tion ce etation Range Leukocyte 40 - 100 SCORE Low Performin Sep 29 g 2016 2:15 phosphata site:[facility] PM se orp [Units/vo [id number] lume] in 0 [facility], [place] [address] 6Dir: Corazon Tavera MDFor inquiries , the [...] 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, however , the prognos ticsign [...] for Molecul ar Biology and Patholo gyResea [facility] [place], [place] [address]- [phone] E SEPERAT E REPORT FOR [...] - [facility] 11:12 AM [Mass/vol ume] in [place] [address] Serum 0 [place], [place] [id number] Deaf Teacher: Cameron Galindo PhD, Phone: [phone] Iron and TIBC Observa Value Referen [...] [facility] 11:12 AM in Serum or Plasma [address] [address] [address] [place], [place] [id number] Deaf Teacher: Cameron Galindo PhD, Phone: [phone] Folate [Mass/volume] in Serum or Plasma Observa Value Referen Units Interpr Notes Date tion ce etation Range Folate >3.0 ng/mL No A serum Sep 22 [Mass/vol informati folate 2017 ume] in on in concentra 11:12 AM Serum or source tion of Plasma data less than 3.1 ng/mL isconside red to represent clinical deficienc y.Perform ed at: CB - [facility] [id number] [place], [place] [id number] Deaf Teacher: Cameron Galindo PhD, Phone: [phone] Triiodothyronine (T3) resin uptake in Serum [...]
[2017-01-09] MEDS ORDERED: IMODIUM A-D2 M3 PO (11:51)
[2017-01-09] MEDS ORDERED: Zofran4 MG PO (11:51)
[2017-01-09 12:53] VITALS: BP 100/47
--- NOTE | 2017-01-10 06:05 | RADIOLOGY REPORT PS360 ---
ABD ACUTE(MUL VIEWS) HISTORY: Nausea, vomiting, diarrhea NVD ORDERING PHYSICIAN: Magdy Hernandez MD PATIENT AGE: 61 years COMPARISON: 11/22 FINDINGS: Frontal view of the chest shows mild cardiomegaly without failure. There are some increased markings in the right lower lobe suggesting patchy infiltrate. The bowel gas pattern is nonspecific and nonobstructive. Nondistended loops of small and large bowel are noted containing some gas. No air-fluid levels. No free air.. There is a 3 mm calcific density to the left of the L5 transverse process nonspecific but could be due to a ureteral calculus. This could also be due to phlebolith. There are multiple phleboliths in the pelvis. Please correlate with clinical findings. CT of the abdomen may be of further value for warranted. 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 IMPRESSION: 1. Increased markings right lower lobe suggesting infiltrate/pneumonia 2. Possible left mid ureteral stone.
== END 2017-01-09 12:54 | disposition home or self-care (01) ==
LOC: ER 09:30
PROVIDERS: Emergency Medicine
DX: R11.10 Vomiting, unspecified (principal); D64.9 Anemia, unspecified; I25.10 Atherosclerotic heart disease of native coronary artery without angina pectoris; Z87.891 Personal history of nicotine dependence; E11.9 Type 2 diabetes mellitus without complications; J44.9 Chronic obstructive pulmonary disease, unspecified; I10 Essential (primary) hypertension
CPT/HCPCS: J2405

== ENCOUNTER 2017-02-01 12:42 | Emergency (ER) | payer MEDICAID ==
[~2017-02-01] VITALS: Ht 162.6 cm; Wt 96.6 kg
[~2017-02-01 12:42] MED LIST changes: +IMODIUM A-D2 M3 PO; +Zofran4 MG PO
--- OUTSIDE RECORDS SUMMARY | 2017-02-01 13:20 | External Medical Summary Rpt | CCD ---
Author Author , RIVER Organization RIVER Address Unknown Phone [email or web address] Care Team Providers Care Chief Librarian Music Department Name Role Phone Nubia Luna MD, Unavailable Unavailable Nubia Lizarraga MD, Unavailable Unavailable Sierra TOUSSAINT MD, Unavailable Unavailable AMADO Danielson Unavailable Unavailable FERNANDA CALDERON, Sam Danielson III, MD Purpose Continuity of Care Document - 10-08-2012 through 2016 Problems Code Diagnosis DOS Provider Status 276.51 276.51 04-23-2013 [place] DEHYDRATION [facility] 305.1 305.1 04-23-2013 [place] TOBACCO USE [facility] DISORDER [facility] 401.9 401.9 04-23-2013 [place] HYPERTENSIO [facility] N NOS Hospital 724.2 724.2 04-23-2013 [place] LUMBAGO [facility] 780.39 780.39 04-23-2013 [place] OTHER [facility] CONVULSIONS [facility] V14.8 V14.8 04-23-2013 [place] HX-DRUG [facility] ALLERGY [facility] 787.01 787.01 03-19-2013 [place] NAUSEA WITH [facility] VOMITING [facility] 787.91 787.91 03-19-2013 [place] DIARRHEA [facility] 412 412 OLD 10-22-2012 [place] MYOCARDIAL [facility] INFARCT [facility] 413.9 413.9 10-22-2012 [place] ANGINA [facility] PECTORIS [facility] NEC/NOS 564.1 564.1 10-22-2012 [place] IRRITABLE [facility] BOWEL [facility] SYNDROME 782.0 782.0 SKIN 10-22-2012 [place] SENSATION [facility] DISTURB [facility] 789.03 789.03 10-22-2012 [place] ABDOMINAL [facility] PAIN, RIGHT Hospital LOWER QUADRANT 496 496 CHR 10-08-2012 [place] AIRWAY [facility] OBSTRUCT [facility] NEC 847.0 847.0 10-08-2012 [place] SPRAIN [facility] 847.1 847.1 10-08-2012 [facility] THORACIC [facility] REGION 847.2 847.2 10-08-2012 [facility] LUMBAR [facility] REGION D64.9 ANEMIA, UNSPECIFIED 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 I21.3 ST ELEVATION (STEMI) MYOCARDIAL INFARCTION OF [facility] SITE I25.10 ATHSCL HEART DISEASE OF [place] CORONARY ARTERY W/O ANG PCTRS I48.0 PAROXYSMAL [...] ve BL ET TA KE HO ME Vital Signs 04-23-2013 18:32 Name Value Interpretat [...] Order Detail nces retati t Range on Serum or plasma troponin i.cardiac measu (01-09-2017 09:50) Serum < 0.02 0.00-0. complet or 017 ng/mL 06 ed plasma 09:50 troponi n i.cardi ac measu Magnesium measurement (01-09-2017 09:50) Magnesi = 1.7 1.4-2.2 complet um 017 mg/dL ed measure 09:50 ment CBC w auto diff (01-09-2017 09:34) Baso % = 1.6 % 0.1-2.0 complet 017 ed 09:34 Automat = 0.1 0-0.2 complet ed 017 [...] 017 K/mm3 ed monocyt 09:34 e count [place] % = 3.6 % 1.7-9.3 complet 017 [...] ed jayson 09:34 count (number /volume ) Lipase measurement (01-09-2017 09:34) Lipase = 87 73-393 complet measure 017 U/L ed ment 09:34 Comprehensive metabolic panel (01-09-2017 09:34) Protein = 7.4 6.4-8.2 complet total 017 gm/dL ed ser/alysia 09:34 s ALT = 12 12-78 complet (SGPT) 017 U/L ed ser/alysia 09:34 s Serum = 10 15-37 complet or 017 U/L ed plasma 09:34 asparta te aminotr ansfera Serum = 139 136-145 complet sodium 017 mmoL/L ed measure 09:34 ment Serum = 3.6 3.5-5.1 complet potassi 017 mmoL/L ed um 09:34 measure ment Serum = 109 74-106 complet or 017 mg/dL ed plasma 09:34 glucose measure ment (mas Serum = 3.6 1.3-3.2 complet globuli 017 gm/dL ed n 09:34 measure ment (mass/v olume) Estimat = 64 59- complet ed 017 ML/MIN ed glomeru 09:34 lar filtrat ion rate (GF Comment: REFERENCE RANGE: >60 ML/MIN/1.73 SQUARE METERS Comment: If this patient is -[place], then multiply the Comment: result by 1.210. Estimat = 102 50-200 complet ion of 017 ML/MIN ed creatin 09:34 ine renal clearan ce Serum = 0.9 0.55-1. complet or 017 mg/dL 02 ed plasma 09:34 creatin ine measure ment ( Carbon = 28 21.0-32 complet dioxide 017 mmoL/L .0 ed 09:34 measure ment Serum = 103 98-107 complet or 017 mmoL/L ed plasma 09:34 chlorid e measure ment (mo Serum = 8.7 8.5-10. complet or 017 mg/dL 1 ed plasma 09:34 calcium measure ment (mas Serum = 8 7-18 complet or 017 mg/dL ed plasma 09:34 urea nitroge n measure men Serum = 0.5 0.2-1.0 complet or 017 mg/dL ed plasma 09:34 total bilirub in measure m Serum = 144 46-116 complet or 017 U/L ed plasma 09:34 alkalin e phospha tase nikia Serum = 3.8 3.4-5.0 complet or 017 gm/dL ed plasma 09:34 albumin measure ment (mas Serum = 1.1 1.1-1.8 complet or 017 ed plasma 09:34 albumin /globul in mass ra Amylase ser/plas (01-09-2017 09:34) Amylase = 47 25-115 complet 017 U/L ed ser/alysia 09:34 s CBC w auto diff (01-05-2017 08:35) Automat = 0.1 0-0.2 complet ed 017 K/MM3 ed blood 08:35 basophi l count (count/ vo Baso % = 1.9 % 0.1-2.0 complet 017 ed 08:35 Automat = 0.2 0.0-0.4 complet ed 017 K/mm3 ed blood 08:35 eosinop hil count Automat = 4.7 % 0.1-12. complet ed 017 0 ed blood 08:35 eosinop hils/10 0 leukocy t Blood = 3.3 1.8-7.8 complet granulo 017 K/mm3 ed cytes 08:35 automat ed count (numb Granulo = 66.4 37.0-80 complet cyte 017 % .0 ed percent 08:35 age Blood = 32.0 37.0-47 complet hematoc 017 % .0 ed rit 08:35 (volume fractio n) Blood = 9.5 12.2-16 complet hemoglo 017 g/dL .2 ed bin 08:35 measure ment (mass/v olum Absolut 11-01-2 = 1.2 0.7-4.5 complet e 017 K/mm3 ed lymphoc 08:35 yte count Lymphoc = 23.8 10-50.0 complet yte 017 % ed count, 08:35 blood, automat ed Mean = 24.9 27-31.2 complet corpusc 017 pg ed ular 08:35 hemoglo bin (MCH) determ Automat = 29.8 31.8-35 complet ed 017 g/dl .4 ed erythro 08:35 cyte mean corpusc ular h Automat = 83.7 82.2-97 complet ed 017 fl .8 ed erythro 08:35 cyte mean corpusc ular v Absolut = 0.2 0.1-1.0 complet e 017 K/mm3 ed monocyt 08:35 e count [place] % = 3.3 % 1.7-9.3 complet 017 ed 08:35 Automat = 10.3 7.4-10. complet ed 017 fl 4 ed blood 08:35 platele t mean volume nikia Blood = 122 142-424 complet platele 017 K/mm3 ed t count 08:35 Red = 3.83 4.2-5.4 complet blood 017 M/mm3 ed cell 08:35 count Automat = 16.7 11.5-17 complet ed 017 % .5 ed erythro 08:35 cyte distrib ution width Blood = 5.0 4.8-10. complet leukocy 017 K/MM3 8 ed jayson 08:35 count (number /volume ) Comprehensive metabolic panel (01-05-2017 08:35) Serum = 1.3 1.1-1.8 complet or 017 ed plasma 08:35 albumin /globul in mass ra Serum = 3.9 3.4-5.0 complet or 017 gm/dL ed plasma 08:35 albumin measure ment (mas Serum = 134 46-116 complet or 017 U/L ed plasma 08:35 alkalin e phospha tase nikia Serum = 0.5 0.2-1.0 complet or 017 mg/dL ed plasma 08:35 total bilirub in measure m Serum = 20 7-18 complet or 017 mg/dL ed plasma 08:35 urea nitroge n measure men Serum = 8.7 8.5-10. complet or 017 mg/dL 1 ed plasma 08:35 calcium measure ment (mas Serum = 105 98-107 complet or 017 mmoL/L ed plasma 08:35 chlorid e measure ment (mo Carbon = 30 21.0-32 complet dioxide 017 mmoL/L .0 ed 08:35 measure ment Serum = 1.0 0.55-1. complet or 017 mg/dL 02 ed plasma 08:35 creatin ine measure ment ( Estimat = 57 59- complet ed 017 ML/MIN ed glomeru 08:35 lar filtrat ion rate (GF Comment: REFERENCE RANGE: >60 ML/MIN/1.73 SQUARE METERS Comment: If this patient is -[place], then multiply the Comment: result by 1.210. Serum = 3.1 1.3-3.2 complet globuli 017 gm/dL ed n 08:35 measure ment (mass/v olume) Serum = 108 74-106 complet or 017 mg/dL ed plasma 08:35 glucose measure ment (mas Serum = 3.7 3.5-5.1 complet potassi 017 mmoL/L ed um 08:35 measure ment Serum = 141 136-145 complet sodium 017 mmoL/L ed measure 08:35 ment Serum = 12 15-37 complet or 017 U/L ed plasma 08:35 asparta te aminotr ansfera ALT = 14 12-78 complet (SGPT) 017 U/L ed ser/alysia 08:35 s Protein = 7.0 6.4-8.2 complet total 017 gm/dL ed ser/alysia 08:35 s CBC w auto diff (12-22-2016 14:50) Automat = 0.2 0-0.2 complet ed 017 K/MM3 ed blood 14:50 basophi l count (count/ vo Baso % = 2.6 % 0.1-2.0 complet 017 ed 14:50 Automat 2 = 0.4 0.0-0.4 complet ed 017 K/mm3 ed blood 14:50 eosinop hil count Automat = 6.5 % 0.1-12. complet ed 017 0 ed blood 14:50 eosinop hils/10 0 leukocy t Blood = 4.4 1.8-7.8 complet granulo 017 K/mm3 ed cytes 14:50 automat ed count (numb Granulo = 65.0 37.0-80 complet cyte 017 % .0 ed percent 14:50 age Blood = 31.0 37.0-47 complet hematoc 017 % .0 ed rit 14:50 (volume fractio n) Blood = 9.1 12.2-16 complet hemoglo 017 g/dL .2 ed bin 14:50 measure ment (mass/v olum Absolut = 1.4 0.7-4.5 complet e 017 K/mm3 ed lymphoc 14:50 yte count Lymphoc = 21.1 10-50.0 complet yte 017 % ed count, 14:50 blood, automat ed Mean = 24.4 27-31.2 complet corpusc 017 pg ed ular 14:50 hemoglo bin (MCH) determ Automat = 29.4 31.8-35 complet ed 017 g/dl .4 ed erythro 14:50 cyte mean corpusc ular h Automat = 83.0 82.2-97 complet ed 017 fl .8 ed erythro 14:50 cyte mean corpusc ular v Absolut = 0.3 0.1-1.0 complet e 017 K/mm3 ed monocyt 14:50 e count [place] % = 4.7 % 1.7-9.3 complet 017 ed 14:50 Automat = 9.3 7.4-10. complet ed 017 fl 4 ed blood 14:50 platele t mean volume nikia Blood = 199 142-424 complet platele 017 K/mm3 ed t count 14:50 Red = 3.74 4.2-5.4 complet blood 017 M/mm3 ed cell 14:50 count Automat = 16.3 11.5-17 complet ed 017 % .5 ed erythro 14:50 cyte distrib ution width Blood = 6.7 4.8-10. complet leukocy 017 K/MM3 8 ed jayson 14:50 count (number /volume ) Differential panel, method unspecified - (12-06-2016 08:26) [...] 11:50 [Presen ce] in Serum by Latex [facility] Differential panel, method unspecified - (09-29-2016 11:47) [...] 014 gm/dL ed SerPl-m 16:40 Cnc Globuli 3.6 1.3-3.2 complet n 014 gm/dL ed Ser-mCn 16:40 c Albumin 1.0 UNK 1.1-1.8 complet /Glob 014 ed SerPl-m 16:40 Rto Bilirub 02-17-2 0.8 0.2-1.0 complet 014 mg/dL ed SerPl-m 16:40 Cnc AST 17-2 30 U/L 15-37 complet SerPl-c 014 ed Cnc 16:40 ALT 02-17-2 46 U/L 12-78 complet SerPl-c 014 ed Cnc 16:40 ALP 02-17-2 184 U/L 50-136 complet SerPl-c 014 ed Cnc 16:40 CBC with AUTO DIFF (04-23-2013 16:40) WBC # 02-17-2 8.2 4.8-10. complet Bld 014 K/MM3 8 ed Auto 16:40 RBC # 02-17-2 5.06 4.2-5.4 complet Bld 014 M/mm3 ed Auto 16:40 Hgb -17-2 13.2 12.2-16 complet Bld-mCn 014 g/dL .2 ed c 16:40 Hct Fr 17-2 39.6 % 37.0-47 complet Bld 014 .0 ed 16:40 MCV RBC 02-17-2 78.2 fl 82.2-97 complet 014 .8 ed 16:40 MCH RBC -17-2 26.0 pg 27-31.2 complet Qn 014 ed Auto 16:40 MEAN -17-2 33.3 31.8-35 complet CORPUSC 014 g/dl .4 ed ULAR 16:40 HGB CONC RDW RBC 02-17-2 12.8 % 11.5-17 complet Auto 014 .5 ed 16:40 Platele -17-2 274 142-424 complet t Bld 014 K/mm3 ed Ql 16:40 Manual MEAN -17-2 8.5 fl 7.4-10. complet PLATELE 014 4 [...] DIPSTIC K URINE 02-17-2 NEGATIV NEG complet LEUK 014 E ed ESTERAS 16:40 E URINE 02-17-2 TRACE O complet BACTERI 014 ed A [...] Bld 014 M/mm3 ed Auto 13:44 Hgb 03-19- 12.2 12.2-16 complet Bld-mCn 014 g/dL .2 [...] % 10-50.0 complet 014 ed 13:44 Monocyt 12.0 % 1.7-9.3 complet es Fr 014 ed Bld 13:44 Auto Eosinop 03-19-2 1.2 % 0.1-12. complet hil Fr 014 0 ed Bld 13:44 Auto Basophi 03-19-2 0.2 % 0.1-2.0 complet ls Fr 014 ed Bld 13:44 Auto Granulo 03-19-2 1.4 1.8-7.8 complet cytes # 014 K/mm3 ed Bld 13:44 Auto Lymphoc 03-19-2 1.0 0.7-4.5 complet ytes Fr 014 K/mm3 ed Bld 13:44 Auto Monocyt 03-19-2 0.3 0.1-1.0 complet es # 014 K/mm3 ed Bld 13:44 Auto Eosinop 01-13-2 0.0 0.0-0.4 complet hil # 014 K/mm3 ed Bld 13:44 Auto Basophi 01-13-2 0.0 0-0.2 complet ls # 014 K/MM3 [...] 16:56 COMPREHENSIVE METABOLIC PANEL (10-22-2012 16:36) Glucose 08-18-2 108 74-106 complet 013 mg/dL ed Bld-mCn 16:36 c BUN 08-18-2 6 mg/dL 7-18 complet Bld-mCn 013 ed c 16:36 Creat 08-18-2 0.7 0.6-1.0 complet SerPl-m 013 mg/dL ed Cnc 16:36 GFR 10-22- 87 59- complet (ESTIMA 013 ML/MIN ed GARRETT) 16:36 Sodium 18- 144 136-145 complet SerPl-s 013 mmoL/L ed Cnc 16:36 Potassi 3.9 3.5-5.1 complet um 013 mmoL/L ed SerPl-s 16:36 Cnc Chlorid 10-22- 107 98-107 complet e 013 mmoL/L ed SerPl-s 16:36 Cnc CO2 18- 32 21.0-32 complet SerPl-s 013 mmoL/L .0 ed Cnc 16:36 Calcium 10-22- 8.7 8.5-10. complet 013 mg/dL 1 ed SerPl-m 16:36 Cnc Prot 6.8 6.4-8.2 complet SerPl-m 013 gm/dL ed Cnc 16:36 Albumin 3.3 3.4-5.0 complet 013 gm/dL ed SerPl-m 16:36 Cnc Globuli 3.5 1.3-3.2 complet n 013 gm/dL ed Ser-mCn 16:36 c Albumin 10-22-2 0.9 UNK 1.1-1.8 complet /Glob 013 ed SerPl-m 16:36 Rto Bilirub 0.6 0.2-1.0 complet 013 mg/dL ed SerPl-m 16:36 Cnc AST 10-22-2 8 U/L 15-37 complet SerPl-c 013 ed Cnc 16:36 ALT 10-22-2 34 U/L 30-65 complet SerPl-c 013 ed Cnc 16:36 ALP 18-2 181 U/L 50-136 complet SerPl-c 013 ed Cnc 16:36 Amylase SerPl-cCnc (10-22-2012 16:36) Amylase 18-2 35 U/L 25-115 complet 013 ed SerPl-c 16:36 Cnc LIPASE (10-22-2012 16:36) LIPASE 10-22-2 74 U/L 73-393 complet 013 ed 16:36 [...] 013 K/mm3 ed Bld 16:36 Auto Eosinop 0.2 0.0-0.4 complet hil # 013 K/mm3 ed Bld 16:36 Auto Basophi 10-22-2 0.0 0-0.2 complet ls # 013 K/MM3 ed Bld 16:36 Auto Encounters Encounter Start End Date Code Location Performer Type Date Emergency JAYNE Luna MD (ER) 4 17:14 4 18:32 [facility] Emergency JAYNE Danielson (ER) 4 13:22 4 18:15 [facility] Emergency JAYNE TOUSSAINT (ER) 3 17:06 3 17:54 [facility] Emergency JAYNE Lizarraga MD (ER) 3 17:27 3 21:15 [facility]
--- OUTSIDE RECORDS SUMMARY | 2017-02-01 13:20 | External Medical Summary Rpt | CCD ---
Author Author , RIVER Organization RIVER Address Unknown Phone [email or web address] Care Team Providers Care Research Geneticist Name Role Phone Nubia Luna MD, Unavailable Unavailable Nubia Lizarraga MD, Unavailable Unavailable Sierra TOUSSAINT MD, Unavailable Unavailable AMADO Danielson Unavailable Unavailable FERNANDA CALDERON, Sam Danielson III, MD Purpose Continuity of Care Document - 10-08-2012 through 2016 Problems Code Diagnosis DOS Provider Status 276.51 276.51 04-23-2013 [place] DEHYDRATION [facility] 305.1 305.1 04-23-2013 [place] TOBACCO USE [facility] DISORDER [facility] 401.9 401.9 04-23-2013 [place] HYPERTENSIO [facility] N NOS Hospital 724.2 724.2 04-23-2013 [place] LUMBAGO [facility] 780.39 780.39 04-23-2013 [place] OTHER [facility] CONVULSIONS [facility] V14.8 V14.8 04-23-2013 [place] HX-DRUG [facility] ALLERGY [facility] Hospital 787.01 787.01 03-19-2013 [place] NAUSEA WITH [facility] VOMITING [facility] 787.91 787.91 03-19-2013 [place] DIARRHEA [facility] 412 412 OLD 10-22-2012 [place] MYOCARDIAL [facility] INFARCT [facility] 413.9 413.9 10-22-2012 [place] ANGINA [facility] PECTORIS [facility] NEC/NOS 564.1 564.1 10-22-2012 [place] IRRITABLE [facility] BOWEL [facility] SYNDROME 782.0 782.0 SKIN 10-22-2012 [place] SENSATION [facility] DISTURB [facility] 789.03 789.03 10-22-2012 [place] ABDOMINAL [facility] PAIN, RIGHT Hospital LOWER QUADRANT 496 496 CHR 10-08-2012 [place] AIRWAY [facility] OBSTRUCT [facility] NEC 847.0 847.0 10-08-2012 [place] SPRAIN [facility] 847.1 847.1 10-08-2012 [facility] THORACIC [facility] REGION 847.2 847.2 10-08-2012 [facility] LUMBAR [facility] REGION D64.9 ANEMIA, UNSPECIFIED 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 [...] 017 K/mm3 ed monocyt 08:35 e count Cole % = 3.3 % 1.7-9.3 complet 017 [...] SQUARE METERS Comment: If this patient is -Iraqi, then multiply the Comment: result by 1.210. [...] 017 K/mm3 ed monocyt 14:50 e count Cole % = 4.7 % 1.7-9.3 complet 017 [...] 11:50 [Presen ce] in Serum by [facility] Differential panel, method unspecified - (09-29-2016 11:47) [...] Luna MD (ER) 4 17:14 4 18:32 [facility] Emergency JAYNE Danielson (ER) 4 13:22 4 18:15 [facility] Emergency JAYNE TOUSSAINT (ER) 3 17:06 3 17:54 [facility] MOHAMED Emergency JAYNE Lizarraga MD (ER) 3 17:27 3 21:15 [facility]
--- OUTSIDE RECORDS SUMMARY | 2017-02-01 13:21 | External Medical Summary Rpt | CCD ---
Demographics Preferred Language Saudi Arabian Marital Status Unknown Anglican Affiliation Unknown Race Unknown Ethnic Group Unknown Author Author , RIVER HOLMAN Address Unknown Phone Immunization No patient found.
--- OUTSIDE RECORDS SUMMARY | 2017-02-01 13:21 | External Medical Summary Rpt | CCD ---
Demographics Preferred Language Guamanian Marital Status Unknown Presybeterian Affiliation Unknown Race Unknown Ethnic Group Unknown Author Author , RIVER HOLMAN Address Unknown Phone Immunization No patient found.
--- OUTSIDE RECORDS SUMMARY | 2017-02-01 13:21 | External Medical Summary Rpt | CCD ---
Author Author Conduent Organization Conduent Address Unknown Phone Unavailable Purpose Continuity of Care Document - through 2016
--- OUTSIDE RECORDS SUMMARY | 2017-02-01 13:22 | External Medical Summary Rpt ---
[...] @ faxed [phone] forming site:[facility] [place] [place] [address]Dir: Shaista baer MDFor inquiri es, the physici an may contact Branch: Lab: Leukocyte phosphatase [Units/volume] in Leukocytes Observa Value Referen Units Interpr Notes Date tion ce etation Range Leukocyte 40 - 100 SCORE Low Performin Sep 29 g 2016 2:15 phosphata site:[facility] PM se orp [Units/vo [id number] lume] in 0 [facility], [place] [address] 6Dir: Corazon Tavera MDFor inquiries , the [...] p210 and p190-en coding transcr ipts by CMLejrald ents in chronic phase is reporte d to be the result ofalter tonawanda splicin g, however , the prognos ticsign [...] for Molecul ar Biology and Patholo gyResea [facility] [place], [place] [address]- [phone] E SEPERAT E REPORT FOR [...] - [facility] 11:12 AM [Mass/vol ume] in [place] [address] Serum [address] [place], [place] [id number] Hackler Doll Wigs: Cameron Galindo PhD, Phone: [phone] Iron and TIBC Observa Value Referen [...] [facility] 11:12 AM in Serum or Plasma [place] [address] [address] [place], [place] [id number] Hackler Doll Wigs: Cameron Galindo PhD, Phone: [phone] Folate [Mass/volume] in Serum or Plasma Observa Value Referen Units Interpr Notes Date tion ce etation Range Folate >3.0 ng/mL No A serum Sep 22 [Mass/vol informati folate 2017 ume] in on in concentra 11:12 AM Serum or source tion of Plasma data less than 3.1 ng/mL isconside red to represent clinical deficienc y.Perform ed at: CB - [facility] [id number] [place], [place] [id number] Hackler Doll Wigs: Cameron Galindo PhD, Phone: [phone] Triiodothyronine (T3) resin uptake in Serum [...]
--- OUTSIDE RECORDS SUMMARY | 2017-02-01 13:22 | External Medical Summary Rpt ---
[...] @ faxed [phone] forming site:[facility] [place] [place] [address]Dir: Shaista baer MDFor inquiri es, the physici an may contact Branch: Lab: [phone] Leukocyte phosphatase [Units/volume] in Leukocytes Observa Value Referen Units Interpr Notes Date tion ce etation Range Leukocyte 40 - 100 SCORE Low Performin Sep 29 g 2016 2:15 phosphata site:[facility] PM se orp [Units/vo [id number] lume] in 0 [facility] [place] [address] 6Dir: Corazon Tavera MDFor inquiries , the [...] reporte d to be the result ofalter nuiqsut splicin g, however , the prognos ticsign [...] for Molecul ar Biology and Patholo gyResea [facility] [place] [place] [address]- [phone] E SEPERAT E REPORT FOR [...] - [facility] 11:12 AM [Mass/vol ume] in [place] [address] Serum [address] [place], [place] [id number] Leadership Development Consultant: Cameron Galindo PhD, Phone: [phone] Iron and TIBC Observa Value Referen [...] [facility] 11:12 AM in Serum or Plasma [place] [address] [address] [place], [place] [id number] Leadership Development Consultant: Cameron Galindo PhD, Phone: [phone] Folate [Mass/volume] in Serum or Plasma Observa Value Referen Units Interpr Notes Date tion ce etation Range Folate >3.0 ng/mL No A serum Sep 22 [Mass/vol informati folate 2017 ume] in on in concentra 11:12 AM Serum or source tion of Plasma data less than 3.1 ng/mL isconside red to represent clinical deficienc y.Perform ed at: CB - [facility] [id number] [place], [place] [id number] Leadership Development Consultant: Cameron Galindo PhD, Phone: [phone] Triiodothyronine (T3) resin uptake in Serum [...]
--- NOTE | 2017-02-01 13:35 | Emergency Room Report ---
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 N Clinical Suspician of Infection? N Mental Status: 1 - Regular (Normal Baseline) Sepsis Risk:Low Sepsis Risk Have you (or family members/close friends) recently traveled outside the [place]? N If Yes, where/when: Have you had exposure to infectious disease within the past month? N TB? Other? Specify: Comment The patient complains of a three-day history of vomiting, diarrhea, lower abdominal pain, and frequent urination. She states she feels dehydrated. She states her diarrhea was green and frothy. No blood. She is currently being treated for leukemia with oral medication. She sees Dr. Joseph. Seen here for the same complaints on 01/09/17. Prescribed Zofran and Imodium which she says helped. She said she saw her primary care physician for follow-up before . ALLERGIES Coded Allergies: Penicillins (Intermediate, I-RASH 01/09/17) acetaminophen (Intermediate, I-RASH 01/09/17) adhesive tape (Intermediate, I-RASH 01/09/17) digoxin (Intermediate, NA-NAUSEA/VOMITING 01/09/17) hydrocortisone (Intermediate, I-RASH 01/09/17) ciprofloxacin (Mild, NA-NAUSEA/VOMITING 01/09/17) milk (Mild, DIARRHEA 01/09/17) Home Medications Active Scripts Tramadol Hcl (Ultram 50MG) 50 MG PO QID #15 TAB Prov: 04/20/15 NITROFURANTOIN MONOHYD/M-CRYST (Macrobid 100 MG Capsule) 100 MG PO BID #14 CAP Prov: 11/22/16 Ondansetron (Zofran Odt) 4 MG PO Q8HP PRN NAUSEA #6 ODT Prov: 01/09/17 Loperamide HCl (Imodium A-D) 2 MG PO Q8HP PRN DIARRHEA #15 CAPSULE Prov: 01/09/17 Albuterol (Albuterol Inhaler 17GM) 2 PUFFS IN Q4HP #1 INH Prov: 03/06/12 Reported Medications NITROGLYCERIN (Nitrostat) 0.4 MG SL [id number] Device (Oxygen (Concentrator)) 1 UNIT XX UD OXYBUTYNIN CHLORIDE (Oxybutynin 5MG Tab) 5 MG PO BID Atorvastatin Calcium (Atorvastatin) 40 MG PO QHS Device (Oxygen (Concentrator)) 1 UNIT XX UD Diazepam (Valium 5MG) 5 MG PO TID ASPIRIN (Aspirin) 81 MG PO DAILY Fluticasone/Vilanterol (Breo Ellipta 200-25 Mcg INH) Ferrous Sulfate (Feosol) Lisinopril (Zestril 5MG Tablet) Rivaroxaban (Xarelto) CEFDINIR (Cefdinir) Metformin HCl (Metformin) 500 MG PO BID #60 BUDESONIDE/FORMOTEROL FUMARATE (Symbicort 80-4.5 Mcg Inhaler) 1 PUFF IH BID #10 Sotalol Hcl (Sotalol) 80 MG PO BID #60 History Medical History General CAD? No Angina: Yes AL: Yes Hypertension? Yes Hyperlipidemia? Yes CHF? Yes DVT? No PE? No COPD? Yes Asthma? No Anemia? No GERD? No Gastric ulcers? No GI Bleed? No Hernia? Yes Thyroid Problems? No Hypothyroidism? No CVA? Yes Seizures? Yes Diabetes? Yes Insulin Dependent: No Insulin Pump: No Home FSBS? No Renal Insuffiency? No End Stage Renal Disease? No UTI? Yes Stones? No BPH? No GB Disease: Yes Nephritic Syndrome? No Asplenia? No Hepatitis? No Sickle Cell Disease? No Arthritis? Yes Migraines? No Cataracts? No Glaucoma? No MRSA? No HIV? No TB? No Anxiety? No Depression? No Cancer? No More? Yes Additional hx: cml Immunization Hx DT/Tetanus UNKNOWN Flu 01/10/08 Pneumonia 01/10/08 Surgical Hx Previous Surgery?Y GallbladdER FX L FOOT TONSILLECTOMY KARRI,BSO COLONOSCOPY X 3 BLADDER REPAIR Appendix CARDIAC STENT X 1 CARDIAC CATH 2- THAT WAS OKAY POLYP REMOVED FROM COLON Family History Family Hx Diabetes Yes CAD Yes Hypertension Yes Hyperlipidemia No Cancer Yes TB No Social History Smoking Hx Smoker: Current Every Day Smoker Tobacco: Yes Type Cigarettes Packs/day < 1 Pack Alcohol Alcohol: No Review of Systems All Other Systems Reviewed and Negative Constitutional denies fever, malaise Respiratory denies cough, denies shortness of breath Cardiovascular denies chest pain Gastrointestinal abdominal pain, diarrhea, nausea, vomiting Genitourinary frequency. Physical Exam Vital Signs Vital Signs Date Time Temp Pulse Resp B/P Pulse O2 O2 Flow FiO2 Ox Delivery Rate 02/01 1648 52 18 137/85 99 02/01 1243 98.1 48 16 145/69 97 General Appearance no apparent distress Eye Exam - bilateral eye normal exam, bilateral eye PERRL, bilateral eye EOMI Ear, Nose, Throat hearing grossly normal, normal ENT inspection Neck normal inspection, non-tender, supple, full range of motion Respiratory Status Yes: trachea midline, chest symmetrical. No: respiratory distress. Lung Sounds bilateral: normal breath sounds, lungs clear. Cardiovascular normal exam, regular rate/rhythm, no peripheral edema, no gallop, no JVD, no murmur, no rub, normal peripheral pulses Peripheral Pulses Pulses normal Yes Gastrointestinal normal bowel sounds, soft, no organomegaly, no guarding, no rebound, tenderness (lower abdomen) Extremities normal inspection Neurologic alert, normal exam, oriented x 3 Mental status normal mood/affect Skin intact, normal color, warm/dry Medical Decision Making LABS/Meds/Orders Pt receiving controlled substance in ED? No Results/Orders Laboratory Tests 02/01/17 1543: Urine Color YELLOW, Urine Appearance CLEAR, Urine pH 8.5, Ur Specific [place] 1.015, Urine Protein NEGATIVE, Urine Ketones NEGATIVE, Urine Blood NEGATIVE, Urine Nitrate NEGATIVE, Urine Bilirubin NEGATIVE, Urine Urobilinogen 1.0, Ur Leukocyte Esterase NEGATIVE, Urine RBC NONE, Urine WBC 3-5, Ur Squamous Epith Cells 10-20, Urine Bacteria 1+, Urine Mucus 2+, Urine Glucose NEGATIVE 02/01/17 1410: Sodium 144, Potassium 4.5, Chloride 107, Carbon Dioxide 32, BUN 11, Creatinine 0.8, Estimated Creat Clear 114, Estimated GFR (MDRD) 73, Glucose 100, Calcium 8.4 L, Total Bilirubin 0.4, AST 11 L, ALT 12, Alkaline Phosphatase 122 H, Troponin I < 0.02, Total Protein 6.7, Albumin 3.5, Globulin 3.2, Albumin/ Globulin Ratio 1.1, Lipase 73, WBC 3.4 L, RBC 3.78 L, Hgb 9.5 L, Hct 31.8 L, MCV 84.2, RDW 17.1, Plt Count 130 L, MPV 9.8, Gran % 55.2, Gran # 1.9, Lymphocytes % 34.5, Monocytes % 4.9, Eosinophils % 4.9, Basophils % 0.5, Lymphocytes # 1.2, Monocytes # 0.2, Eosinophils # 0.2, Basophils # 0.0, PUBS MCHC 29.9 L, MCH 25.2 L Current Medication Orders Sig/Rich Start time Last Medication Dose Route Stop Time Status Admin Ondansetron HCl 4 MG ONCE ONE 02/01 1345 DC 02/01 IV 02/01 1346 1351 Sodium Chloride 1,000 ML .Q1H1M 02/01 1345 DC 02/01 IV 02/01 1445 1352 Sodium Chloride 10 ML PRN PRN 02/01 1345 DCD IV 02/02 1341 Sodium Chloride 1,000 ML .STK-MED ONE 02/01 1344 DC IV Ondansetron HCl 0 .STK-MED ONE 02/01 1343 DC .ROUTE Orders Procedure Date/time Status ELECTROCARDIOGRAM REQUEST 02/01 1341 Active IV SALINE LOCK 02/01 1341 Active URINALYSIS/COMPLETE 02/01 1341 Complete TROPONIN I 02/01 1341 Complete LIPASE 02/01 1341 Complete DIARRHEA PANEL, PCR 02/01 1341 Active CBC WITH AUTO DIFF 02/01 134 Complete CHEM 12 PROFILE 02/01 1341 Complete CM/EKG CM/EKG Comments EKG interpreted by Sammy Beltran MD: Rhythm: sinus bradycardia Rate: 45 Bryan: normal Ectopy: none Conduction: normal ST Segment Changes: none T Wave Changes: none Q Waves: none No evidence of acute ischemia or injury Progress - 3:50 PM: No diarrhea or vomiting in the emergency department. Labs are stable. She will be discharged on Zofran and Imodium as before. Departure Departure Disposition DC Home or Self Care(routine) Clinical Impression Primary Impression: Vomiting Qualifiers: Vomiting type: unspecified Vomiting Intractability: non-intractable Nausea presence: with nausea Qualified Code: R11.2 - Nausea with vomiting, unspecified Secondary Impressions: Diarrhea Qualifiers: Diarrhea type: unspecified type Qualified Code: R19.7 - Diarrhea, unspecified Condition STABLE Referrals Ramin Weinberg MD (Family) Patient Instructions DI for Diarrhea and Traveler's Diarrhea -- Adult, DI for Vomiting -- Adult Additional Instructions Additional instructions for VOMITING/DIARRHEA: See your physician as soon as possible for further evaluation. Return immediately if severe abdominal pain, uncontrollable vomiting, shortness of breath, fever, vomiting of blood or abdominal distention. Prescriptions Current Visit Scripts Loperamide Hcl (Loperamide) 2 MG PO Q6HP PRN DIARRHEA #10 CAP Ondansetron (Zofran 4MG Odt) 4 MG PO Q8HP PRN NAUSEA AND VOMITING #10 ODT ED Critical Care Critical Care No at 3693
[2017-02-01 14:18] LABS: HEMOGLOBIN 9.5 g/dL (12.2-16.2); LYMPH # 1.2 K/mm3 (0.7-4.5); LYMPH % 34.5 % (10-50.0)
[2017-02-01 14:33] LABS: BUN 11 mg/dL (7-18)
[2017-02-01 14:34] LABS: GFR (ESTIMATED) 73 ML/MIN (59-)
[2017-02-01 15:47] LABS: URINE BILIRUBIN - DIPSTICK NEGATIVE (NEG); URINE BLOOD NEGATIVE (NEG)
[2017-02-01] MEDS ORDERED: IMODIUM 2MG. CAP2 MG PO (15:52)
[2017-02-01] MEDS ORDERED: ZOFRAN ODT4 MG PO (15:52)
[2017-02-01 16:48] VITALS: BP 137/85
== END 2017-02-01 16:49 | disposition home or self-care (01) ==
LOC: ER 12:42
PROVIDERS: Emergency Medicine
DX: R11.2 Nausea with vomiting, unspecified (principal); R19.7 Diarrhea, unspecified; Z88.0 Allergy status to penicillin; I10 Essential (primary) hypertension; I50.9 Heart failure, unspecified; J44.9 Chronic obstructive pulmonary disease, unspecified; E11.9 Type 2 diabetes mellitus without complications
CPT/HCPCS: J2405